=== PATIENT | male | born 1945 | race Caucasian/White ===

== ENCOUNTER 2018-08-13 10:25 | Emergency (ER) | payer MEDICARE, SELFPAY ==
[2018-08-13 10:26] VITALS: BP 183/87; PULSE 77; RESP 20; TEMP 36.9; O2SAT 93; BMI 49.4
[2018-08-13 11:02] LABS: Mucous, Urine 0 SEEN /hpf (<or=2+); Squamous Epithelial Cells - UA 0 SEEN /hpf (0-5)
[2018-08-13 11:11] LABS: Color, Urine Yellow (Yellow); Glucose, Dipstick Normal (Normal); Ketone-Dipstick Negative (Negative); Leukocyte Esterase-Dipstick 500 /ul (Negative); Nitrite-Dipstick Positive (Negative); Occult Blood-Urine 250 /ul (Negative); Protein-Dipstick 100 mg/dl (Negative); Urine Bilirubin Dipstick Negative (Negative); Urine Clarity Sl. Cloudy (Clear); Urine Urobilinogen Normal (Normal)
[2018-08-13 11:22] LABS: Bacteria 2+ /hpf (None Seen); Red Blood Cells-Urine 25-50 SEEN /hpf (0-5); White Blood Cells 25-50 SEEN /hpf (0-5)
[2018-08-13 11:23] LABS: Triple Phosphate Crystals Ur 1+ /hpf (<or=1+)
[2018-08-13 11:26] LABS: Absolute Lymphocyte Count 0.63 X10^3/ul (0.83-4.51); Absolute Neutrophil Count 10.2 X10^3/uL (2.0-7.7); Basophil# 0.03 X10^3/uL; Basophil% 0.2 % (0-1); Eosinophil# 0.09 X10^3/uL; Eosinophils% 0.7 % (0-5); Hematocrit 35.8 % (40-54); Hemoglobin 11.2 g/dl (13.0-16.5); Lymphocyte # 0.63 X10^3/ul (4.0); Lymphocyte % 5.1 % (19-41); Mean Corp Hgb Conc 31.3 g/gl (32-36); Mean Corpuscular Hgb 29.3 pg (27.0-32.0); Mean Corpuscular Volume 93.7 fL (80-94); Mean Platelet Vol. 9.6 fl (6.2-12.0); Monocyte# 1.39 X10^3/uL; Monocyte% 11.3 % (0-10); Neutrophil # 10.15 X10^3/uL (2.7-7.7); Neutrophil % 82.6 % (47-70); POSITIVE COUNT NO; POSITIVE DIFFERENTIAL NO; POSITIVE MORPHOLOGY NO; Platelet Count 125 K/mm3 (150-450); RBC Distribution Width CV 15.7 % (11.6-14.6); RBC Distribution Width SD 53.3 fl (35.1-43.9); Red Blood Count 3.82 M/mm3 (4.6-6.2); White Blood Count 12.3 K/mm3 (4.4-11.0)
[2018-08-13 11:34] LABS: Anion Gap 10 (5-15); BUN 32 mg/dL (7-18); BUN/Creat Ratio 14.5 RATIO (10-20); Calcium,Total 8.7 mg/dL (8.5-10.1); Chloride 103 mmol/L (98-107); EST Glomerular Filtration Rate 31 mL/min (>60); Est Glom Filt Rate - Afr Amer 38 mL/min (>60); Estimated Creatinine Clearance 27.12 ml/min; Glucose 159 mg/dL (74-106); Potassium 4.1 mmol/L (3.5-5.1); Sodium Level 138 mmol/L (136-145)
--- NOTE | 2018-08-13 12:14 | CT_ITS ---
STUDY: CT ABDOMEN AND PELVIS WITHOUT CONTRAST REASON FOR EXAM: Male, 73 years old. Burning and frequency with urination. RADIATION DOSAGE (If Supplied By Facility): CTDIvol = ( 17.58 ) mGy, DLP = ( 910.92 ) mGycm TECHNIQUE: Transaxial images were obtained from the dome of the diaphragm to the symphysis pubis without oral contrast, and without intravenous contrast. Sagittal and coronal images were reconstructed. Individualized dose optimization techniques were used for this CT. COMPARISON: Comparison is made with prior study dated November 16, 2016. FINDINGS: Small left pleural effusion with left basilar atelectasis and/or infiltration. Coronary artery calcification. Normal liver. There are surgical clips in the gallbladder fossa consistent with a prior cholecystectomy. Normal spleen. Normal pancreas. Normal bilateral adrenal glands. Marked degree of right hydronephrosis and hydroureter with tortuosity of the ureter down to the urinary bladder. Small cyst in the lateral lower pole of the right kidney. Punctate calcification in the dilated midpole calyx. There is a 2.4 cm hypodensity most likely a cyst in the upper posterior aspect of the left kidney. Moderate degree of left hydronephrosis and left hydroureter. Normal visualized stomach. Normal small intestine. There are multiple colonic diverticula consistent with diverticulosis. The appendix is visualized and appears normal. There is diffuse atherosclerotic calcification of the abdominal aorta and its major visceral branches, without a demonstrated aneurysm. Normal inferior vena cava. There is borderline retroperitoneal lymphadenopathy with enlarged nodes no greater than 10mm in the short axis diameter. The urinary bladder is distended. Mild degree of bladder wall thickening. The prostate measures within normal limits. Central prostatic calcification. Increased markings within the subcutaneous fat suggestive of a possible edematous change. There are diffuse degenerative changes of the visualized lumbar spine. CT/Abdomen/Pelvis without Cont IMPRESSION: Bilateral hydronephrosis and hydroureter worse on the right side with marked distention of the urinary bladder and thickening of the gallbladder wall stable bilateral renal cysts. Small left pleural effusion with left basilar atelectasis and/or infiltrate. Electronically Signed: Evan Kirkland MD at 13:00 EDT Tel [phone], Service support ,
[2018-08-13] MEDS: Lidocaine Jelly 2% 20 ML Syringe (URO-JET) 20 APPLIC TOPICAL (14:02)
[2018-08-13] MEDS: Ciprofloxacin 500 MG Tablet PO (14:10)
--- NOTE | 2018-08-13 15:09 | ED.VISSUMM ---
- ER Visit Summary Date of Service: 08/13/18 Chief Complaint: Urinary tract infection History of Present Illness: The patient is a 73 M is ending with urinary frequency and urgency for 24 hours. Slight suprapubic discomfort but no flank pain. He does have a history of large prostate but has never had urinary retention. Physical Examination: Vitals are within normal limits. He is not in distress. Neck is supple. Heart tones are regular and without murmur. Slight suprapubic tenderness but no flank tenderness. Test Results: Creatinine is slightly elevated at 2.2. White blood cell count is normal. Urine does appear infected with positive nitrites, white blood cells, and leukocytes. Because of his increased creatinine, I did order a CT scan which revealed bilateral hydronephrosis and hydroureter Emergency Department Course and Treatment: His bladder was quite enlarged on the CT scan and he has evidence of an obstructive uropathy. A Carlson catheter was placed in approximately 3 L of clear colorless urine was obtained. He had near complete relief of his discomfort. He had a very small amount of hematuria at the end which cleared easily with irrigation. Treatment Plan: I discussed the case with Dr. Goodwin, his primary care physician with whom he has an appointment on Thursday. He is comfortable with the patient being discharged home with the Carlson catheter in place and he will repeat his labs on Thursday and arrange close urology follow-up. The patient will return to the emergency department if any worse before then and he will be started on Cipro with a urine culture pending. Disposition: Home in stable condition Impression: Initial encounter acute urinary retention, initial encounter bilateral obstructive uropathy, initial encounter urinary tract infection, initial encounter acute kidney injury This note was generated with [employer] dictation software. It may contain incorrect words, spelling, and punctuation that were not noted in review of the chart prior to signing ED Disposition - Plan for ED Patient: Chief Complaint: Complaint Instructions: ED Retention Urinary Male, ED UTI Cystitis Male Prescriptions: Ciprofloxacin [Cipro] 500 mg PO BID #14 tablet Referrals: Danny Goodwin DO [Primary Care Provider] - 08/16/18
--- NOTE | 2018-08-13 15:12 | ED.DCSUM_ITS ---
- ER Visit Summary Date of Service: 08/13/18 Chief Complaint: Urinary tract infection History of Present Illness: The patient is a 73 M is ending with urinary frequency and urgency for 24 hours. Slight suprapubic discomfort but no flank pain. He does have a history of large prostate but has never had urinary retention. Physical Examination: Vitals are within normal limits. He is not in distress. Neck is supple. Heart tones are regular and without murmur. Slight suprapubic tenderness but no flank tenderness. Test Results: Creatinine is slightly elevated at 2.2. White blood cell count is normal. Urine does appear infected with positive nitrites, white blood cells , and leukocytes. Because of his increased creatinine, I did order a CT scan which revealed bilateral hydronephrosis and hydroureter Emergency Department Course and Treatment: His bladder was quite enlarged on the CT scan and he has evidence of an obstructive uropathy. A Carlson catheter was placed in approximately 3 L of clear colorless urine was obtained. He had near complete relief of his discomfort. He had a very small amount of hematuria at the end which cleared easily with irrigation. Treatment Plan: I discussed the case with Dr. Goodwin, his primary care physician with whom he has an appointment on Thursday. He is comfortable with the patient being discharged home with the Carlson catheter in place and he will repeat his labs on Thursday and arrange close urology follow-up. The patient will return to the emergency department if any worse before then and he will be started on Cipro with a urine culture pending. Disposition: Home in stable condition Impression: Initial encounter acute urinary retention, initial encounter bilateral obstructive uropathy, initial encounter urinary tract infection, initial encounter acute kidney injury This note was generated with [email or web address] dictation software. It may contain incorrect words, spelling, and punctuation that were not noted in review of the chart prior to signing ED Disposition - Plan for ED Patient: Chief Complaint: Complaint Instructions: ED Retention Urinary Male, ED UTI Cystitis Male Prescriptions: Ciprofloxacin [Cipro] 500 mg PO BID #14 tablet Referrals: Danny Goodwin DO [Primary Care Provider] - 08/16/18
[2018-08-13 15:27] VITALS: BP 113/77; PULSE 78; RESP 15; O2SAT 98
== END 2018-08-13 15:46 | disposition home or self-care (01) ==
PROVIDERS: Emergency Provider Emergency Medicine; Family Provider Family Medicine; PCP Family Medicine
DX: R33.9 Retention of urine, unspecified (principal); N13.30 Unspecified hydronephrosis; N13.4 Hydroureter; N39.0 Urinary tract infection, site not specified; N17.9 Acute kidney failure, unspecified; Z79.4 Long term (current) use of insulin; Z79.82 Long term (current) use of aspirin; Z79.899 Other long term (current) drug therapy
CPT/HCPCS: 51702; 74176; 80048; 81001; 85025; 87077; 87086; 87088; 87186; 99285; A4216

== ENCOUNTER 2018-08-18 17:22 | Emergency (ER) | payer MEDICARE, SELFPAY ==
[2018-08-18 17:22] VITALS: BP 151/76; PULSE 68; RESP 18; TEMP 36.9; O2SAT 98; BMI 48.4
--- NOTE | 2018-08-18 17:47 | ED.DCSUM_ITS ---
- ER Visit Summary Date of Service: 08/18/18 Chief Complaint: Erwin catheter not draining History of Present Illness: The patient is a 73 M with history of acute urinary retention, Erwin catheter placed 3 days ago, who presents because it is not draining. Patient was seen at the urologist office this morning for the same complaint. He had 2 L of urine drained at that time and a new bag placed. Patient began developing pressure and discomfort in the suprapubic region and noted the catheter was not draining again. He denies any fever, abdominal pain, nausea or vomiting other than the suprapubic discomfort. He has an appointment on August 26 for removal of the catheter. Patient attempted self flushing at home without any improvement. Physical Examination Vital signs: afebrile, hemodynamically stable, no hypoxia on room air General: well nourished, well developed, in no distress Skin: warm, dry, no rash, no pallor HEENT: normocephalic and atraumatic; PERRL, EOMI, moist mucous membranes Cardiovascular: regular rate and rhythm Respiratory: No increased work of breathing Abdominal: Abdomen is soft, nontender with normoactive bowel sounds, no guarding or rebound, no masses : erwin in place MSK: Moves all extremities, no deformities, normal strength Neuro: Awake and alert, oriented ?4. No facial droop, sensation and motor function intact and symmetric Test Results:] Abnormal Lab Results 08/18/18 17:50 Sodium 137 Potassium 3.8 Chloride 101 Carbon Dioxide 30.0 Anion Gap 6 BUN 23 H Creatinine 1.90 H Estim Creat Clear Calc 31.41 Est GFR (MDRD) Af Amer 45 L Est GFR (MDRD) Non-Af 37 L BUN/Creatinine Ratio 12.1 Glucose 164 H Calcium 8.7 Emergency Department Course and Treatment: The catheter was evaluated, and the balloon port had been used to try and flush it at home, thus it was over distended with 40 cc of fluid. The balloon was completely decompressed and reinflated with 10 cc. Only 130 cc of urine were voided, and it was dark in color with a few small clots. BMP was checked to evaluate for any change in patient's renal function. His creatinine at his last BMP was 2.2. It is 1.9 today, showing improvement rather than worsening. On reevaluation, patient had light colored yellow urine in his Erwin bag, and the dark concentrated urine had resolved. Patient was feeling well. He will keep his appointment as planned or return earlier if any further concerns. Discharged home in improved condition. Treatment Plan: [] Disposition: [] Impression: Obstruction of Erwin catheter This note was generated with [employer] dictation software. It may contain incorrect words, spelling, and punctuation that were not noted in review of the chart prior to signing ED Disposition - Plan for ED Patient: Disposition: Home or Assisted Living Chief Complaint: Erwin C/O Instructions: Discharge Instructions: Caring for Your Indwelling Urinary Catheter Referrals: Danny Goodwin DO [Primary Care Provider] - Keep Rosetta appointment Additional Instructions: If you have any worsening of your condition or any new concerning symptoms, please return immediately to the emergency department for another evaluation.
[2018-08-18 18:38] LABS: Anion Gap 6 (5-15); BUN 23 mg/dL (7-18); BUN/Creat Ratio 12.1 RATIO (10-20); Calcium,Total 8.7 mg/dL (8.5-10.1); Chloride 101 mmol/L (98-107); EST Glomerular Filtration Rate 37 mL/min (>60); Est Glom Filt Rate - Afr Amer 45 mL/min (>60); Estimated Creatinine Clearance 31.41 ml/min; Glucose 164 mg/dL (74-106); Potassium 3.8 mmol/L (3.5-5.1); Sodium Level 137 mmol/L (136-145)
--- NOTE | 2018-08-18 19:39 | ED.DEP ---
ED Disposition - Plan for ED Patient: Disposition: Home or Assisted Living Chief Complaint: Carlson C/O Instructions: Discharge Instructions: Caring for Your Indwelling Urinary Catheter Referrals: Danny Goodwin DO [Primary Care Provider] - Keep Rosetta appointment Additional Instructions: If you have any worsening of your condition or any new concerning symptoms, please return immediately to the emergency department for another evaluation.
== END 2018-08-18 19:51 | disposition home or self-care (01) ==
PROVIDERS: Emergency Provider Emergency Medicine; Family Provider Family Medicine; PCP Family Medicine
DX: T83.091A Other mechanical complication of indwelling urethral catheter, initial encounter (principal); R33.9 Retention of urine, unspecified; Z79.4 Long term (current) use of insulin; Z79.82 Long term (current) use of aspirin; Z79.899 Other long term (current) drug therapy
CPT/HCPCS: 80048; 99282

== ENCOUNTER 2018-08-20 20:51 | Emergency (ER) | payer MEDICARE, SELFPAY ==
[2018-08-20 20:52] VITALS: BP 145/72; PULSE 66; RESP 14; TEMP 36.8; O2SAT 99; BMI 48.4
[2018-08-20 22:39] VITALS: BP 152/98; PULSE 61; RESP 17; O2SAT 96
--- NOTE | 2018-08-20 22:41 | ED.DCSUM_ITS ---
- ER Visit Summary Date of Service: 08/20/18 Chief Complaint: Carlson catheter malfunction History of Present Illness: The patient is a 73 M presenting for evaluation due to concerns for a clogged Carlson catheter. Patient reports that a week ago he had a Carlson catheter placed secondary to his severe urinary tract infection with dilation of the bladder and urinary retention. Patient reports that he is required to have it irrigated a couple times since then, and since his bladder was so distended when it was initially placed he has developed some hematuria. He is not on any sort of anticoagulants. Patient states that today he has had some decreased drainage from the catheter and was concerned that it was potentially clogged again. He endorses only mild amount of suprapubic tenderness and denies any other associated symptoms. Physical Examination: Vital signs within normal limits. Obese male no acute distress. Moist mucous membranes. Heart regular rate, lungs clear. Abdomen was minimally tender in the suprapubic region. Carlson catheter is in place, no evidence of penile infection. Remainder physical otherwise unremarkable. Test Results: None indicated Emergency Department Course and Treatment: Patient presented due to concern for clogged of a Carlson catheter. Nursing staff did irrigate this, they were able to get good irrigation. Patient had some relief. He still has hematuria, but it is pink with not a significant amount of clots. This point I believe the patient's appropriate for discharge home. Patient will follow up with urology. Disposition: Discharge Impression: 1. Hematuria This note was generated with [employer] dictation software. It may contain incorrect words, spelling, and punctuation that were not noted in review of the chart prior to signing ED Disposition - Plan for ED Patient: Disposition: Home or Assisted Living Chief Complaint: Carlson C/O Diagnosis: Hematuria Instructions: Discharge Instructions: Caring for Your Leg Bag Referrals: Danny Goodwin DO [Primary Care Provider] - Additional Instructions: Followup with urology as scheduled
== END 2018-08-20 22:50 | disposition home or self-care (01) ==
PROVIDERS: Emergency Provider Emergency Medicine; Family Provider Family Medicine; PCP Family Medicine
DX: R31.9 Hematuria, unspecified (principal); E66.9 Obesity, unspecified
CPT/HCPCS: 99282

== ENCOUNTER 2019-02-12 19:42 | Emergency (ER) | payer MEDICARE, SELFPAY ==
[2019-02-12 19:43] VITALS: BP 155/66; PULSE 61; RESP 16; TEMP 36.5; O2SAT 97; BMI 51.3
--- NOTE | 2019-02-12 20:20 | ED.DCSUM_ITS ---
- ER Visit Summary Date of Service: 02/12/19 Chief Complaint: Fall History of Present Illness: The patient is a 73 M who lost his balance going up some steps and fell backwards striking his head and left shoulder on concrete. Patient complains of pain to the left shoulder. He denies headache. He did not lose consciousness. Physical Examination: Vital signs unremarkable. Patient is lying in bed no acute distress. Head and neck examination reveals no obvious external sign of trauma. No C- spine tenderness. Heart is regular rate and rhythm. Lung sounds clear. Abdomen soft nontender. Left upper extremity examination does reveal mild tenderness at the left shoulder along the joint line. He has strong distal pulse to the left arm. 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 He does have prominence of the medial clavicle on the left, but states it is only mildly tender to touch. Test Results: Left shoulder and left clavicle x-rays are obtained. There are osteoarthritic changes at the AC joint. No acute findings. Emergency Department Course and Treatment: Patient initially declined pain medication. After returning from x-ray he did have increased pain and was given a dose of oxycodone. He takes Percocet as needed at home. Test results are discussed with patient and family at bedside. At this time I see no evidence of acute bony injury. I did discuss with him there is possibility of tendon or ligament injury that is not visible on x-ray. I did discuss the prominent medial clavicle on the left with the patient. He does not remember if it is normally like that or not. The area is only minimally tender and if this was an acute dislocation I would certainly expect significantly more pain at the site. Patient will be given a sling. He will use his Percocet as needed. He will follow-up with Dr. Amin. Treatment Plan: [] Disposition: Discharge Impression: 1. Left shoulder contusion 2. Mechanical fall This note was generated with [employer] dictation software. It may contain incorrect words, spelling, and punctuation that were not noted in review of the chart prior to signing ED Disposition - Plan for ED Patient: Referrals: Danny Goodwin DO [Primary Care Provider] -
--- NOTE | 2019-02-12 20:28 | RAD_ITS ---
STUDY: X-RAY - LEFT SHOULDER REASON FOR EXAM: Male, 73 years old. Fall. Clavicle pain. TECHNIQUE: 2 view(s) of the shoulder. COMPARISON: None. FINDINGS: Normal glenohumeral articulation. There is arthrosis of the acromioclavicular joint. Normal acromion. Normal humeral head and visualized proximal humerus. The soft tissue structures are unremarkable. Normal visualized pulmonary apex. RAD/Shoulder min 2 Views IMPRESSION: Osteoarthritic changes of the AC joint. No acute finding. Electronically Signed: James Lafleur MD at 20:51 EDT , Service support ,
--- NOTE | 2019-02-12 20:28 | RAD_ITS ---
STUDY: X-RAY - LEFT CLAVICLE REASON FOR EXAM: Male, 73 years old. Fall. Pain in clavicle. TECHNIQUE: 2 view(s) of the clavicle. COMPARISON: None. FINDINGS: Normal clavicle. There is marked arthrosis of the acromioclavicular joint. Normal visualized sternoclavicular articulation. Normal visualized pulmonary apex. RAD/Clavicle IMPRESSION: No acute finding. Electronically Signed: James Lafleur MD at 20:51 EDT , Service support ,
--- NOTE | 2019-02-12 21:12 | ED.DEP ---
ED Disposition - Plan for ED Patient: Disposition: Home or Assisted Living Instructions: ED Mechanical Fall, ED Contusion Shoulder Referrals: Josep Amin DO [STAFF PHYSICIAN] - 1 Week
[2019-02-12] MEDS: oxyCODONE 5 MG Tablet PO (21:27)
[2019-02-12 21:36] VITALS: BP 145/82; PULSE 63; RESP 16; O2SAT 97
== END 2019-02-12 21:43 | disposition home or self-care (01) ==
PROVIDERS: Emergency Provider Emergency Medicine; Family Provider Family Medicine; PCP Family Medicine
DX: S40.012A Contusion of left shoulder, initial encounter (principal); M54.9 Dorsalgia, unspecified; Z79.891 Long term (current) use of opiate analgesic; Z87.891 Personal history of nicotine dependence; W10.9XXA Fall (on) (from) unspecified stairs and steps, initial encounter; Y93.01 Activity, walking, marching and hiking; Y92.89 Other specified places as the place of occurrence of the external cause; Y99.8 Other external cause status
CPT/HCPCS: 73000; 73030; 99285

== ENCOUNTER → 2019-05-10 | Outpatient (CLI) | payer MEDICARE, SELFPAY ==
[2019-05-10 15:26] LABS: PSA,Total - Annual Screen 4.37 ng/mL (0.00-4.00)
== END | disposition home or self-care (01) ==
PROVIDERS: Family Provider Family Medicine; PCP Family Medicine; Referring Provider Urology; Visit Provider Urology
DX: Z12.5 Encounter for screening for malignant neoplasm of prostate (principal)
CPT/HCPCS: 36415; 84153; G0103

== ENCOUNTER → 2020-01-26 | Outpatient (CLI) | payer MEDICARE, SELFPAY ==
[2020-01-26 12:12] LABS: BUN 32 mg/dL (7-18); Creatinine, Serum 1.59 mg/dL (0.70-1.30); EST Glomerular Filtration Rate 45 mL/min (>60); Glucose 209 mg/dL (74-106)
[2020-01-26 12:13] LABS: Albumin, Serum 3.3 g/dL (3.2-5.0); BUN/Creat Ratio 20.1 RATIO (10-20); Calcium,Total 8.6 mg/dL (8.5-10.1); Chloride 114 mmol/L (98-107); Est Glom Filt Rate - Afr Amer 55 mL/min (>60); Phosphorus 3.7 mg/dL (2.5-4.9); Potassium 3.8 mmol/L (3.5-5.1); Sodium Level 144 mmol/L (136-145)
[2020-01-26 12:17] LABS: Protein, Urine (Random) 42.5 mg/dL (<11.9); Protein:Creat Ratio 840 mg/g CRE (0-200)
== END | disposition home or self-care (01) ==
LOC: POLAB3 09:55
PROVIDERS: PCP Family Medicine; Visit Provider Internal Medicine Nephrology
DX: E11.22 Type 2 diabetes mellitus with diabetic chronic kidney disease (principal); N18.3 Chronic kidney disease, stage 3 (moderate)
CPT/HCPCS: 36415; 80069; 82570; 84156

== ENCOUNTER → 2020-03-27 | Outpatient (CLI) | payer MEDICARE, SELFPAY ==
[2020-03-27 09:51] LABS: Hematocrit 45.1 % (40-54); Hemoglobin 14.7 g/dL (13.0-16.5); Mean Corp Hgb Conc 32.6 g/dL (32-36); Mean Corpuscular Hgb 31.1 pg (27.0-32.0); Mean Corpuscular Volume 95.3 fL (80-94); Mean Platelet Vol. 10.3 fl (6.2-12.0); Platelet Count 183 K/mm3 (150-450); RBC Distribution Width CV 14.7 % (11.6-14.6); RBC Distribution Width SD 51.1 fl (35.1-43.9); Red Blood Count 4.73 M/mm3 (4.6-6.2); White Blood Count 8.3 K/mm3 (4.4-11.0)
[2020-03-27 10:01] LABS: PTHIN 128.1 pg/mL (18.4-80.1)
[2020-03-27 10:05] LABS: ALB/GLOB Ratio 0.9 RATIO (0.9-2.4); AST(SGOT) 78 U/L (15-37); Alanine Aminotransfer ALT/SGPT 127 U/L (16-61); Albumin, Serum 3.4 g/dL (3.2-5.0); Alkaline Phosphatase 179 U/L (45-117); Anion Gap 5 (5-15); BUN 32 mg/dL (7-18); BUN/Creat Ratio 18.5 RATIO (10-20); Calcium,Total 8.9 mg/dL (8.5-10.1); Chloride 108 mmol/L (98-107); Creatinine, Serum 1.73 mg/dL (0.70-1.30); EST Glomerular Filtration Rate 41 mL/min (>60); Est Glom Filt Rate - Afr Amer 50 mL/min (>60); Globulin 3.8 g/dL (2.2-4.2); Glucose 185 mg/dL (74-106); Phosphorus 4.8 mg/dL (2.5-4.9); Potassium 3.8 mmol/L (3.5-5.1); Protein, Total 7.2 g/dL (6.4-8.2); Sodium Level 139 mmol/L (136-145); Vitamin D,25 Hydroxy 41.5 ng/mL
== END | disposition home or self-care (01) ==
LOC: MTLAB 08:02
PROVIDERS: Internal Medicine Nephrology; PCP Student in an Organized Health Care Education/Training Program; Referring Provider Student in an Organized Health Care Education/Training Program; Visit Provider Student in an Organized Health Care Education/Training Program
DX: E11.22 Type 2 diabetes mellitus with diabetic chronic kidney disease (principal); N18.3 Chronic kidney disease, stage 3 (moderate); E11.21 Type 2 diabetes mellitus with diabetic nephropathy; N25.81 Secondary hyperparathyroidism of renal origin; E55.9 Vitamin D deficiency, unspecified
CPT/HCPCS: 36415; 80053; 82306; 83970; 84100; 85027

== ENCOUNTER → 2020-04-02 | Outpatient (CLI) | payer MEDICARE, SELFPAY ==
--- NOTE | 2020-04-02 09:08 | US_ITS ---
STUDY: RENAL ULTRASOUND - COMPLETE REASON FOR EXAM: Male, 74 years old. CKD3 TECHNIQUE: Ultrasound evaluation of the kidneys was performed with real-time and static sharp-scale imaging. COMPARISON: None. FINDINGS: RIGHT KIDNEY: Normal location of the right kidney, which is normal in size. The right kidney measures 13.6 cm x 5.2 cm x 6.6 cm. There is a normal cortex of the right kidney. The renal cortex measures 1.5 cm. 2 right renal cysts are seen. There is a 3.4 cm x 3.3 cm x 3.1 cm cyst in the upper pole. In the inferior pole, there is a 2.8 cm x 2.7 cm x 2 cm cyst. There are no right renal calculi. There is no right hydronephrosis. DISTAL RIGHT URETER: There is non-visualization of the distal right ureter. There is no demonstrated right ureterovesical junction calculus. There is no demonstrated right ureteral jet. LEFT KIDNEY: Normal location of the left kidney, which is normal in size. The left kidney measures 10.8 cm x 4.9 cm x 5.7 cm. There is a normal cortex of the left kidney. The renal cortex measures 1.2 cm. Multiple renal cysts are seen. The largest measures 2.4 cm x 3 size by 1.9 cm. There are no left renal calculi. There is no left hydronephrosis. DISTAL LEFT URETER: There is non-visualization of the distal left ureter. There is no demonstrated left ureterovesical junction calculus. There is no demonstrated left ureteral jet. BLADDER: The distended urinary bladder has a volume of 151 ml. There is a normal wall thickness of the distended urinary bladder. There is no demonstrated mass within the urinary bladder. There are no demonstrated bladder calculi. US/Kidney and Bladder IMPRESSION: Bilateral renal cysts more prominent on the left side. Electronically Signed: Evan Kirkland, at 12:53 EDT , Service support ,
== END | disposition home or self-care (01) ==
LOC: US 09:05
PROVIDERS: PCP Student in an Organized Health Care Education/Training Program; Referring Provider Internal Medicine Nephrology; Visit Provider Internal Medicine Nephrology
DX: N18.3 Chronic kidney disease, stage 3 (moderate) (principal)
CPT/HCPCS: 76770

== ENCOUNTER → 2020-04-05 | Outpatient (CLI) | payer MEDICARE, SELFPAY ==
[2020-04-05 12:47] LABS: Protein, Urine (Random) 60.2 mg/dL (<11.9); Protein:Creat Ratio 1830 mg/g CRE (0-200)
== END | disposition home or self-care (01) ==
LOC: POLAB3 11:28
PROVIDERS: PCP Student in an Organized Health Care Education/Training Program; Visit Provider Internal Medicine Nephrology
DX: E11.22 Type 2 diabetes mellitus with diabetic chronic kidney disease (principal); N18.9 Chronic kidney disease, unspecified
CPT/HCPCS: 82570; 84156

== ENCOUNTER → 2020-04-30 10:33 | Outpatient (CLI) | payer MEDICARE, SELFPAY ==
[2020-04-30 11:39] LABS: Albumin, Serum 3.1 g/dL (3.2-5.0); BUN 21 mg/dL (7-18); BUN/Creat Ratio 16.7 RATIO (10-20); Chloride 108 mmol/L (98-107); Creatinine, Serum 1.26 mg/dL (0.70-1.30); EST Glomerular Filtration Rate 59 mL/min (>60); Est Glom Filt Rate - Afr Amer 71 mL/min (>60); Glucose 172 mg/dL (74-106); Phosphorus 4.1 mg/dL (2.5-4.9); Potassium 3.8 mmol/L (3.5-5.1); Sodium Level 141 mmol/L (136-145)
[2020-04-30 13:17] LABS: ALB/GLOB Ratio 0.8 RATIO (0.9-2.4); AST(SGOT) 26 U/L (15-37); Alanine Aminotransfer ALT/SGPT 75 U/L (16-61); Alkaline Phosphatase 152 U/L (45-117); Cholesterol 188 mg/dL (200); Globulin 4.1 g/dL (2.2-4.2); High Density Lipoprotein 41 mg/dL; Protein, Total 7.2 g/dL (6.4-8.2); Triglycerides 129 mg/dL; Uric Acid 4.3 mg/dL (3.5-7.2); Very Low Density Lipoprotein 26 mg/dL (5-40); Vitamin D,25 Hydroxy 34.4 ng/mL
[2020-04-30 13:34] LABS: Hematocrit 45.9 % (40-54); Hemoglobin 14.8 g/dL (13.0-16.5); Mean Corp Hgb Conc 32.2 g/dL (32-36); Mean Platelet Vol. 10.1 fl (6.2-12.0); Platelet Count 208 K/mm3 (150-450); RBC Distribution Width SD 56.1 fl (35.1-43.9); Red Blood Count 4.78 M/mm3 (4.6-6.2); White Blood Count 7.6 K/mm3 (4.4-11.0)
[2020-04-30 14:09] LABS: Hemoglobin A1c 6.3 % (3.8-5.6)
== END ==
PROVIDERS: PCP Student in an Organized Health Care Education/Training Program; Referring Provider Internal Medicine Nephrology; Visit Provider Internal Medicine Nephrology
DX: E11.22 Type 2 diabetes mellitus with diabetic chronic kidney disease (principal); N18.3 Chronic kidney disease, stage 3 (moderate); N17.9 Acute kidney failure, unspecified; E11.21 Type 2 diabetes mellitus with diabetic nephropathy; M10.9 Gout, unspecified; R74.0 Nonspecific elevation of levels of transaminase and lactic acid dehydrogenase [LDH]
CPT/HCPCS: 36415; 80061; 80069; 82247; 82306; 83036; 84075; 84156; 84450; 84460; 84550; 85027

== ENCOUNTER → 2020-05-08 | Outpatient (CLI) | payer MEDICARE, SELFPAY ==
[2020-05-08 15:27] LABS: PSA,Total- Diagnostic 4.64 ng/mL (0.0-4.0)
== END | disposition home or self-care (01) ==
LOC: LAB 13:53
PROVIDERS: PCP Student in an Organized Health Care Education/Training Program; Referring Provider Urology; Visit Provider Urology
DX: R97.20 Elevated prostate specific antigen [PSA] (principal)
CPT/HCPCS: 36415; 84153

== ENCOUNTER → 2020-06-30 09:42 | Outpatient (CLI) | payer MEDICARE, SELFPAY ==
[2020-06-30 11:08] LABS: Albumin, Serum 3.5 g/dL (3.2-5.0); BUN 22 mg/dL (7-18); BUN/Creat Ratio 13.5 RATIO (10-20); Calcium,Total 9.1 mg/dL (8.5-10.1); Chloride 112 mmol/L (98-107); Creatinine, Serum 1.63 mg/dL (0.70-1.30); EST Glomerular Filtration Rate 44 mL/min (>60); Est Glom Filt Rate - Afr Amer 53 mL/min (>60); Glucose 119 mg/dL (74-106); Phosphorus 4.4 mg/dL (2.5-4.9); Potassium 4.4 mmol/L (3.5-5.1); Sodium Level 143 mmol/L (136-145)
== END ==
PROVIDERS: PCP Student in an Organized Health Care Education/Training Program; Referring Provider Internal Medicine Nephrology; Visit Provider Internal Medicine Nephrology
DX: N18.3 Chronic kidney disease, stage 3 (moderate) (principal)
CPT/HCPCS: 36415; 80069

== ENCOUNTER → 2020-07-09 | Outpatient (CLI) | payer MEDICARE, SELFPAY ==
[2020-07-09 11:05] LABS: Anion Gap 3 (5-15); BUN 25 mg/dL (7-18); BUN/Creat Ratio 17.5 RATIO (10-20); Calcium,Total 9.3 mg/dL (8.5-10.1); Chloride 111 mmol/L (98-107); Creatinine, Serum 1.43 mg/dL (0.70-1.30); EST Glomerular Filtration Rate 51 mL/min (>60); Est Glom Filt Rate - Afr Amer 62 mL/min (>60); Glucose 122 mg/dL (74-106); Potassium 4.4 mmol/L (3.5-5.1); Sodium Level 142 mmol/L (136-145)
== END | disposition home or self-care (01) ==
LOC: LAB 09:45
PROVIDERS: PCP Student in an Organized Health Care Education/Training Program; Referring Provider Internal Medicine Nephrology; Visit Provider Internal Medicine Nephrology
DX: N18.3 Chronic kidney disease, stage 3 (moderate) (principal)
CPT/HCPCS: 36415; 80048

== ENCOUNTER → 2020-08-31 | Outpatient (CLI) | payer MEDICARE, SELFPAY ==
[2020-08-31 11:02] LABS: Hematocrit 45.7 % (40-54); Hemoglobin 14.5 g/dL (13.0-16.5); Mean Corp Hgb Conc 31.7 g/dL (32-36); Mean Corpuscular Hgb 30.6 pg (27.0-32.0); Mean Corpuscular Volume 96.4 fL (80-94); Mean Platelet Vol. 9.8 fl (6.2-12.0); Platelet Count 177 K/mm3 (150-450); RBC Distribution Width CV 15.3 % (11.6-14.6); RBC Distribution Width SD 53.8 fl (35.1-43.9); Red Blood Count 4.74 M/mm3 (4.6-6.2); White Blood Count 7.4 K/mm3 (4.4-11.0)
[2020-08-31 11:20] LABS: Hemoglobin A1c 6.5 % (3.8-5.6)
[2020-08-31 11:30] LABS: ALB/GLOB Ratio 0.8 RATIO (0.9-2.4); AST(SGOT) 24 U/L (15-37); Alanine Aminotransfer ALT/SGPT 41 U/L (16-61); Albumin, Serum 3.4 g/dL (3.2-5.0); Alkaline Phosphatase 133 U/L (45-117); BUN 67 mg/dL (7-18); Bilirubin, Direct 0.19 mg/dL (0.00-0.30); Calcium,Total 8.9 mg/dL (8.5-10.1); Chloride 111 mmol/L (98-107); Cholesterol 161 mg/dL (200); Creatinine, Serum 2.23 mg/dL (0.70-1.30); EST Glomerular Filtration Rate 31 mL/min (>60); Est Glom Filt Rate - Afr Amer 37 mL/min (>60); Globulin 4.1 g/dL (2.2-4.2); Glucose 136 mg/dL (74-106); High Density Lipoprotein 42 mg/dL; Phosphorus 6.1 mg/dL (2.5-4.9); Potassium 5.1 mmol/L (3.5-5.1); Protein, Total 7.5 g/dL (6.4-8.2); Sodium Level 141 mmol/L (136-145); Triglycerides 145 mg/dL; Very Low Density Lipoprotein 29 mg/dL (5-40)
== END | disposition home or self-care (01) ==
PROVIDERS: PCP Student in an Organized Health Care Education/Training Program; Referring Provider Student in an Organized Health Care Education/Training Program; Visit Provider Student in an Organized Health Care Education/Training Program
DX: E11.22 Type 2 diabetes mellitus with diabetic chronic kidney disease (principal); N18.30 Chronic kidney disease, stage 3 unspecified; E78.5 Hyperlipidemia, unspecified
CPT/HCPCS: 36415; 80061; 80069; 82247; 82248; 83036; 84075; 84156; 84450; 84460; 85027

== ENCOUNTER → 2021-01-18 12:07 | Outpatient (CLI) | payer MEDICARE, SELFPAY ==
[2021-01-18 13:08] LABS: Cholesterol 168 mg/dL (200); High Density Lipoprotein 47 mg/dL; Triglycerides 113 mg/dL; Uric Acid 5.7 mg/dL (3.5-7.2); Very Low Density Lipoprotein 23 mg/dL (5-40)
[2021-01-18 13:15] LABS: Hemoglobin A1c 6.2 % (3.8-5.6)
== END ==
LOC: PR 12:08 → LAB 01-22 07:49
PROVIDERS: PCP Student in an Organized Health Care Education/Training Program; Referring Provider Family Medicine; Visit Provider Family Medicine
DX: E11.9 Type 2 diabetes mellitus without complications (principal); M10.9 Gout, unspecified; E78.00 Pure hypercholesterolemia, unspecified; Z79.4 Long term (current) use of insulin
CPT/HCPCS: 80061; 83036; 84550

== ENCOUNTER → 2021-02-12 13:25 | Outpatient (CLI) | payer MEDICARE, SELFPAY ==
[2021-02-12 13:44] LABS: Hematocrit 49.2 % (40-54); Mean Corp Hgb Conc 32.5 g/dL (32-36); Mean Corpuscular Hgb 32.1 pg (27.0-32.0); Mean Corpuscular Volume 98.8 fL (80-94); Mean Platelet Vol. 9.8 fl (6.2-12.0); Platelet Count 181 K/mm3 (150-450); RBC Distribution Width CV 14.6 % (11.6-14.6); Red Blood Count 4.98 M/mm3 (4.6-6.2); White Blood Count 8.9 K/mm3 (4.4-11.0)
[2021-02-12 14:09] LABS: Albumin, Serum 3.7 g/dL (3.2-5.0); BUN 38 mg/dL (7-18); BUN/Creat Ratio 21.1 RATIO (10-20); Calcium,Total 9.5 mg/dL (8.5-10.1); Chloride 107 mmol/L (98-107); EST Glomerular Filtration Rate 39 mL/min (>60); Est Glom Filt Rate - Afr Amer 47 mL/min (>60); Glucose 168 mg/dL (74-106); Phosphorus 4.5 mg/dL (2.5-4.9); Potassium 5.1 mmol/L (3.5-5.1); Sodium Level 139 mmol/L (136-145)
== END ==
PROVIDERS: PCP Student in an Organized Health Care Education/Training Program; Referring Provider Internal Medicine Nephrology; Visit Provider Internal Medicine Nephrology
DX: N18.30 Chronic kidney disease, stage 3 unspecified (principal)
CPT/HCPCS: 36415; 80069; 85027

== ENCOUNTER → 2021-03-15 13:31 | Outpatient (CLI) | payer MEDICARE, SELFPAY ==
[2021-03-15 15:30] LABS: AST(SGOT) 23 U/L (15-37); Alanine Aminotransfer ALT/SGPT 39 U/L (16-61); Albumin, Serum 3.2 g/dL (3.2-5.0); Alkaline Phosphatase 110 U/L (45-117); Bilirubin, Direct 0.19 mg/dL (0.00-0.30); Globulin 3.8 g/dL (2.2-4.2)
== END ==
PROVIDERS: PCP Family Medicine; Referring Provider Internal Medicine Nephrology; Visit Provider Internal Medicine Nephrology
DX: N17.9 Acute kidney failure, unspecified (principal)
CPT/HCPCS: 36415; 80076

== ENCOUNTER → 2021-05-16 14:49 | Outpatient (CLI) | payer MEDICARE, SELFPAY ==
[2021-05-16 18:05] LABS: PSA,Total- Diagnostic 3.53 ng/mL (0.0-4.0)
== END ==
PROVIDERS: PCP Family Medicine; Visit Provider Urology
DX: R97.20 Elevated prostate specific antigen [PSA] (principal)
CPT/HCPCS: 36415; 84153

== ENCOUNTER → 2021-10-31 | Outpatient (CLI) | payer MEDICARE, SELFPAY ==
[2021-10-31 13:16] LABS: Cholesterol 151 mg/dL (200); High Density Lipoprotein 39 mg/dL; Triglycerides 125 mg/dL; Very Low Density Lipoprotein 25 mg/dL (5-40)
[2021-10-31 13:28] LABS: Hemoglobin A1c 6.5 % (3.8-5.6)
[2021-10-31 17:30] LABS: Microalbumin,Random Urine 73.7 mg/L (NO RANGE EST.); Microalbumin:Creatinine Ratio 115.2 mg/g CRE (<30 mg/g CRE)
== END | disposition home or self-care (01) ==
PROVIDERS: PCP Family Medicine; Visit Provider Family Medicine
DX: E11.9 Type 2 diabetes mellitus without complications (principal); I10 Essential (primary) hypertension; E78.00 Pure hypercholesterolemia, unspecified; Z79.4 Long term (current) use of insulin
CPT/HCPCS: 80061; 82043; 82570; 83036

== ENCOUNTER 2022-05-07 05:44 | Inpatient (IN) | payer MEDICARE, SELFPAY ==
[2022-05-07] VITALS (11 sets, daily range): BP systolic 118–163; BP diastolic 65–80; PULSE 70–98; RESP 15–22; TEMP 35.6–36.8; O2SAT 83–98; BMI 55.6; BMI 53.6
--- NOTE | 2022-05-07 05:53 | CT_ITS ---
STUDY: CT CERVICAL SPINE WITHOUT CONTRAST REASON FOR EXAM: Male, 76 years old. head injury RADIATION DOSAGE (If Supplied By Facility): CTDIvol = ( 33.13 ) mGy, DLP = ( 796.55 ) mGycm TECHNIQUE: High resolution transaxial imaging was performed without contrast material. Sagittal and coronal images were reconstructed. Individualized dose optimization techniques were used for this CT. COMPARISON: None FINDINGS: Significant image degradation from patient body habitus and motion. ALIGNMENT: No subluxation. Straightening of the normal curvature. MINERALIZATION: Normal. VERTEBRAL BODIES: No fracture or acute abnormality. DISC SPACES: Disc space narrowing and partial fusion from C3 through C7. POSTERIOR ELEMENTS: Facet arthropathy at most levels. SPINAL CANAL: Maintained. PARASPINAL SOFT TISSUES: Unremarkable. OTHER: Tiny focus of air in the posterior fossa likely venous air related to IV catheter placement. Small bilateral pleural effusions. CT/Spine Cervical without Contras IMPRESSION: No evidence of fracture or subluxation. Straightening of the normal curve may be due to positioning or muscle spasm. Degenerative changes. Small pleural effusions. Electronically Signed: Penelope Pearson MD at 7:01 EDT ,
--- NOTE | 2022-05-07 05:53 | RAD_ITS ---
STUDY: X-RAY CHEST REASON FOR EXAM: Male, 76 years old. confusion TECHNIQUE: AP portable. 6:32 AM. COMPARISON: None. FINDINGS: LUNGS: Bilateral perihilar infiltrates greater on the left. Likely small right pleural effusion. Detail limited by extensive overlying soft tissue. No pneumothorax. MEDIASTINUM: Unremarkable. CARDIAC SILHOUETTE: Enlarged. BONES AND SOFT TISSUES: No acute abnormalities. RAD/Chest 1 View (Portable) IMPRESSION: Bilateral perihilar infiltrates and small right pleural effusion pulmonary edema versus pneumonia. Electronically Signed: Penelope Pearson MD at 6:56 EDT ,
--- NOTE | 2022-05-07 05:53 | CT_ITS ---
STUDY: CT BRAIN WITHOUT CONTRAST REASON FOR EXAM: Male, 76 years old. head injury RADIATION DOSAGE (If Supplied By Facility): CTDIvol = ( 44.99 ) mGy, DLP = ( 829.85 ) mGycm TECHNIQUE: Transaxial CT imaging of the brain was performed without administration of intravenous contrast material. Individualized dose optimization techniques were used for this CT. COMPARISON: No relevant priors. FINDINGS: BRAIN: No acute bleed. No edema. Decreased attenuation in the periventricular white matter bilaterally. Old lacunar infarct in the right basal ganglia. Mott-white matter differentiation is maintained. VENTRICLES AND SULCI: Not dilated. EXTRA-AXIAL: No hemorrhage, fluid collection, or mass. CALVARIUM / SKULL BASE: Unremarkable. FACE/SINUSES: Unremarkable. SOFT TISSUES: Unremarkable CT/Brain/Head without Contrast IMPRESSION: No acute abnormality. Chronic microvascular ischemic disease. Electronically Signed: Penelope Pearson MD at 6:51 EDT ,
--- NOTE | 2022-05-07 05:53 | EKG12_ITS ---
Test Reason : HYPOGLYCIM Blood Pressure : / mmHG Vent. Rate : 088 BPM Atrial Rate : 131 BPM P-R Int : 000 ms QRS Dur : 184 ms QT Int : 464 ms P-R-T Axes : 000 079 -20 degrees QTc Int : 561 ms Atrial fibrillation Right bundle branch block T wave abnormality, consider inferior ischemia Abnormal ECG Confirmed by ARNOLDO AG, SHO ([id number]), scientific editor SAMANTA LEE ([id number]) on 05/12/2022 12:44:49 PM Referred By: DARIAN Confirmed By:SHO MCLAUGHLIN MD
[2022-05-07 06:01] LABS: Bedside Glucose 59 mg/dL (74-106)
[2022-05-07] MEDS: Dextrose 50%-Water 25 GM/50 ML DISP.SYRIN IV (06:17)
[2022-05-07 06:18] LABS: Absolute Lymphocyte Count 0.49 X10^3/uL (0.83-4.51); Absolute Neutrophil Count 10.6 X10^3/uL (2.0-7.7); Basophil# 0.06 X10^3/uL; Basophil% 0.5 % (0-1); Eosinophil# 0.03 X10^3/uL; Eosinophils% 0.2 % (0-5); Hematocrit 43.1 % (40-54); Hemoglobin 13.5 g/dL (13.0-16.5); Lymphocyte # 0.49 X10^3/ul (0.83-4.51); Mean Corp Hgb Conc 31.3 g/dL (32-36); Mean Corpuscular Hgb 32.3 pg (27.0-32.0); Mean Corpuscular Volume 103.1 fL (80-94); Monocyte# 0.88 X10^3/uL; Monocyte% 7.2 % (0-10); NRBC Flagged by Analyzer 0 % (0-5); Neutrophil # 10.59 X10^3/uL (2.7-7.7); Neutrophil % 87.3 % (47-70); POSITIVE DIFFERENTIAL YES; Platelet Count 223 K/mm3 (150-450); RBC Distribution Width CV 15.8 % (11.6-14.6); Red Blood Count 4.18 M/mm3 (4.6-6.2); White Blood Count 12.2 K/mm3 (4.4-11.0)
[2022-05-07 06:21] LABS: Differential Indicated SCAN CRITERIA MET
[2022-05-07 06:25] LABS: International Normalized Ratio 1.4; Prothrombin Time (Protime)PT. 16.5 SECONDS (11.7-14.9)
[2022-05-07 06:26] LABS: Partial Thromboplast Time 32.3 Seconds (24.1-36.2)
[2022-05-07 06:50] LABS: Bedside Glucose 171 mg/dL (74-106)
[2022-05-07 06:55] LABS: Anion Gap 6 (5-15); BUN 41 mg/dL (7-18); BUN/Creat Ratio 17.6 RATIO (10-20); CPK Total, Creatine Kinase 1204 U/L (39-308); Calcium,Total 9.3 mg/dL (8.5-10.1); Chloride 104 mmol/L (98-107); Creatinine, Serum 2.33 mg/dL (0.70-1.30); EST Glomerular Filtration Rate 29 mL/min (>60); Est Glom Filt Rate - Afr Amer 35 mL/min (>60); Estimated Creatinine Clearance 24.43 ml/min; Glucose 50 mg/dL (74-106); Magnesium 2.3 mg/dL (1.6-2.6); Potassium 4.4 mmol/L (3.5-5.1); Sodium Level 139 mmol/L (136-145); Thyroid Stim Hormone (TSH) 2.35 uIU/mL (0.358-3.74); Troponin-I HS 30 pg/mL (3.0-78.0)
[2022-05-07 07:16] LABS: Differential Comment SCANNED
[2022-05-07 07:25] LABS: Bedside Glucose 156 mg/dL (74-106)
[2022-05-07 08:06] LABS: BNP,B-Type NATRIURETIC PEPTIDE 469.3 pg/mL (0-100)
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
[2022-05-07 08:16] LABS: Bedside Glucose 150 mg/dL (74-106)
[2022-05-07 08:45] LABS: Base Excess 0 mmol/L (-2 to +2); Bicarbonate 25.8 mmol/L (22-26); Blood Gas Specimen Type ART; PO2 88 mmHG (75-100); SO2 96 % (95-99); Total Carbon Dioxide 27 mmol/L; pCO2 46.2 mmHg (35-45); pH 7.36 (7.35-7.45)
--- NOTE | 2022-05-07 09:02 | NURSING ---
DR CHAHAL FOR DR WALLS
--- NOTE | 2022-05-07 09:23 | NURSING ---
PCU TERELETSKY HYPOXIA, NEW ONSET AFIB, CHF, PNEUMONIA
[2022-05-07] MEDS: Ceftriaxone 1 GM/50 ML BAG IV (09:31)
[2022-05-07] MEDS: Furosemide 20 MG/2 ML VIAL IV ×3 (09:34→20:34)
--- NOTE | 2022-05-07 11:01 | NURSING ---
visitor at bedside, states pt hearing aides are at home. pt reports that one is broken but i put it back to together all the time
--- NOTE | 2022-05-07 11:45 | ECHOD_ITS ---
Reason For Study: Afib/Flutter Procedure This was a 2D Doppler, Color Flow transthoracic echocardiogram. The study was technically difficult. No Definity used due to elevated Pressures. Exam performed portable in patient room. Left Ventricle Moderate concentric left ventricular hypertrophy. Based upon the 2D echocardiographic images obtained there appears to be grossly normal left ventricular size, wall motion, and systolic function. The estimated ejection fraction is 55 %. Unable to assess diastolic dysfunction. Right Ventricle Normal RV size. Normal systolic function. Atria The left atrium is moderately enlarged. The right atrium is mildly enlarged. No doppler evidence for ASD. Mitral Valve There is no mitral annular calcification. Mild mitral valve prolapse. Mild (1+) eccentric mitral valve insufficiency. Tricuspid Valve Normal tricuspid valve. Trivial tricuspid valve insufficiency. Right ventricular systolic pressure estimated to be 71 mmHg. Aortic Valve Trisinus/trileaflet aortic valve. Mild focal aortic valve calcification. Pulmonic Valve The pulmonic valve is not well visualized. Great Vessels Normal sized aortic root. Pericardium/Pleural No pericardial effusion. MMode/2D Measurements & Calculations LVIDd: 5.6 cm IVSd: 1.4 cm Ao root diam: 3.2 cm LVIDs: 4.3 cm LVPWd: 1.6 cm LA dimension: 4.5 cm RVDd: 3.9 cm FS: 22.7 % LAV(MOD-bp): 96.3 ml LA A4 area: 27.6 cm2 RA A4 area: 30.0 cm2 LAV(MOD-bp) Indexed: 37.6 ml/m2 LAV(MOD-sp2): 106.5 ml LAV(MOD-sp4): 86.2 ml Time Measurements MV dec time: 0.21 sec Doppler Measurements & Calculations MV E max isai: 133.3 cm/sec Lat Peak E' Isai: 7.7 cm/sec Ao V2 max: 177.8 cm/sec E/E' lat: 17.2 Ao max P.7 mmHg LV V1 max: 83.5 cm/sec MR max isai: 422.8 cm/sec PA V2 max: 108.3 cm/sec LV V1 max P.8 mmHg MR max P.5 mmHg TR max isai: 375.5 cm/sec TR max P.4 mmHg ECHO/Echo Complete Interpretation Summary The study was technically difficult. Based upon the 2D echocardiographic images obtained there appears to be grossly normal left ventricular size, wall motion, and systolic function. The estimated ejection fraction is 55 %. Moderate concentric left ventricular hypertrophy. The left atrium is moderately enlarged. The right atrium is mildly enlarged. Mild mitral valve prolapse. Mild (1+) eccentric mitral valve insufficiency. Trivial tricuspid valve insufficiency. Mild focal aortic valve calcification. Right ventricular systolic pressure estimated to be 71 mmHg c/w severe pulmonar y hypertension. Unable to assess diastolic dysfunction. Ordering Physician: Alvarado Parada Referring Physician: MD Alvarado Sam Performed By: Avi Jackson RCS
--- NOTE | 2022-05-07 11:57 | WOUNDNOTE ---
wound photo: right lower leg
--- NOTE | 2022-05-07 11:57 | WOUNDNOTE ---
wound photo: right posterior lower leg
--- NOTE | 2022-05-07 11:58 | WOUNDNOTE ---
wound photo: left lower leg
[2022-05-07 12:41] LABS: Bedside Glucose 209 mg/dL (74-106)
[2022-05-07] MEDS: Ipratropium/Albuterol Sulfate 3 ML AMPUL.NEB INHALATION ×2 (13:14→18:48)
[2022-05-07] MEDS: 0.9% Saline Lock 10 ML Syringe IV ×2 (15:06→20:35)
[2022-05-07 17:11] LABS: Bedside Glucose 216 mg/dL (74-106)
[2022-05-07] MEDS: Potassium Chloride Oral Tablet 20 MEQ PO (17:28)
[2022-05-07] MEDS: Insulin Lispro 100 UNIT/ML INSULN.PEN SC ×2 (17:28→20:32)
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
[2022-05-07] MEDS: Menthol/Lanolin/Calamine/Znox 113 GM Tube 1 APPLIC TOPICAL (20:30)
[2022-05-07] MEDS: Nystatin Powder 15gm Bottle 1 APPLIC TOPICAL (20:31)
[2022-05-07] MEDS: Heparin Injection (Vial) 5,000 UNIT/ML VIAL 5000 UNIT SC (20:31)
[2022-05-07] MEDS: Metoprolol Tartrate 100 MG Tablet PO (20:33)
[2022-05-07] MEDS: Atorvastatin Calcium 20 MG Tablet PO (20:39)
[2022-05-07 21:06] LABS: Bedside Glucose 272 mg/dL (74-106)
[2022-05-08] VITALS (18 sets, daily range): BP systolic 97–149; BP diastolic 62–79; PULSE 65–88; RESP 18–20; TEMP 36.6–36.8; O2SAT 94–99
[2022-05-08 04:57] LABS: Absolute Lymphocyte Count 1.04 X10^3/uL (0.83-4.51); Absolute Neutrophil Count 7.8 X10^3/uL (2.0-7.7); Basophil# 0.05 X10^3/uL; Basophil% 0.5 % (0-1); Eosinophil# 0.14 X10^3/uL; Eosinophils% 1.4 % (0-5); Hematocrit 38.4 % (40-54); Hemoglobin 11.9 g/dL (13.0-16.5); Lymphocyte # 1.04 X10^3/ul (0.83-4.51); Lymphocyte % 10.1 % (19-41); Mean Corpuscular Hgb 32.4 pg (27.0-32.0); Mean Corpuscular Volume 104.6 fL (80-94); Mean Platelet Vol. 10.2 fl (6.2-12.0); Monocyte# 1.25 X10^3/uL; Monocyte% 12.1 % (0-10); NRBC Flagged by Analyzer 0 % (0-5); Neutrophil # 7.75 X10^3/uL (2.7-7.7); Neutrophil % 75.3 % (47-70); Platelet Count 181 K/mm3 (150-450); RBC Distribution Width CV 15.9 % (11.6-14.6); RBC Distribution Width SD 60.5 fl (35.1-43.9); Red Blood Count 3.67 M/mm3 (4.6-6.2); White Blood Count 10.3 K/mm3 (4.4-11.0)
[2022-05-08] MEDS: 0.9% Saline Lock 10 ML Syringe IV (05:08)
[2022-05-08] MEDS: Furosemide 20 MG/2 ML VIAL IV ×3 (05:09→21:12)
[2022-05-08] MEDS: Nystatin Powder 15gm Bottle 1 APPLIC TOPICAL ×3 (05:11→21:11)
[2022-05-08 06:41] LABS: Bedside Glucose 128 mg/dL (74-106)
[2022-05-08] MEDS: Ipratropium/Albuterol Sulfate 3 ML AMPUL.NEB INHALATION ×3 (06:51→19:38)
[2022-05-08] MEDS: Potassium Chloride Oral Tablet 20 MEQ PO ×2 (08:19→16:38)
[2022-05-08] MEDS: Aspirin 81 MG TAB.CHEW PO (08:19)
[2022-05-08 08:39] LABS: ALB/GLOB Ratio 0.8 RATIO (0.9-2.4); AST(SGOT) 89 U/L (15-37); Alanine Aminotransfer ALT/SGPT 38 U/L (16-61); Albumin, Serum 2.8 g/dL (3.2-5.0); Alkaline Phosphatase 83 U/L (45-117); Anion Gap 4 (5-15); BUN 48 mg/dL (7-18); BUN/Creat Ratio 19.7 RATIO (10-20); Calcium,Total 8.9 mg/dL (8.5-10.1); Chloride 105 mmol/L (98-107); Creatinine, Serum 2.44 mg/dL (0.70-1.30); EST Glomerular Filtration Rate 27 mL/min (>60); Est Glom Filt Rate - Afr Amer 33 mL/min (>60); Estimated Creatinine Clearance 23.33 ml/min; Globulin 3.7 g/dL (2.2-4.2); Glucose 151 mg/dL (74-106); Potassium 4.8 mmol/L (3.5-5.1); Protein, Total 6.5 g/dL (6.4-8.2); Sodium Level 139 mmol/L (136-145)
[2022-05-08] MEDS: Ceftriaxone 1 GM/50 ML BAG IV (09:38)
[2022-05-08] MEDS: Losartan Potassium 100 MG Tablet PO (09:38)
[2022-05-08] MEDS: Heparin Injection (Vial) 5,000 UNIT/ML VIAL 5000 UNIT SC (09:38)
[2022-05-08] MEDS: Metoprolol Tartrate 100 MG Tablet PO ×2 (09:38→21:14)
[2022-05-08] MEDS: NIFEdipine 60 MG Tablet PO (09:38)
--- NOTE | 2022-05-08 10:02 | CASEMGMT ---
SW met with patient. Introduced self and role at [facility]. RN was present in room tending to patient's wounds on his legs. Patient was okay with SW talking to him. SW asked patient if he feels he will need short term rehab at discharge. Patient said he does not think so. RN mentioned something about home health for wound care. DARIO passed along this message to RN BAILEE. Simi MOTA
--- NOTE | 2022-05-08 10:13 | EKG12_ITS ---
Test Reason : Blood Pressure : / mmHG Vent. Rate : 079 BPM Atrial Rate : 080 BPM P-R Int : 000 ms QRS Dur : 178 ms QT Int : 444 ms P-R-T Axes : 000 080 -21 degrees QTc Int : 509 ms Atrial fibrillation Right bundle branch block T wave abnormality, consider inferior ischemia Abnormal ECG When compared with ECG of 07-MAY-2022 06:07, MANUAL COMPARISON REQUIRED, DATA IS UNCONFIRMED Confirmed by ARNOLDO AG, SHO ([id number]), video effects editor SAMANTA LEE ([id number]) on 05/09/2022 1:32:33 PM Referred By: MCKENZIE Confirmed By:SHO MCLAUGHLIN MD
--- NOTE | 2022-05-08 10:30 | CASEMGMT ---
RN CM Face to Face with patient for initial transition planning/care coordination assessment. RN CM introduced self and role at [facility]. Patient lying in bed, alert and oriented, son and grandson at bedside. Patient willing to participate in assessment and is able to answer all questions appropriately. Care providers, pharmacy, and demographics verified. Patient wishes to discharge home with HHC. Patient provided list of HHC and DME in-network with patient's insurance with MCR ratings and quality measures. Patient and family to review and provided preferences Patient states he has no further needs or concerns at this time. CM to follow for discharge planning needs that may arise. PCP: [facility] Specialists: Mesha, journalism intern; Jose, assistant restaurant general manager; Hay, pain; Bairon, dermatologitst Preferred Pharmacy: [facility] Insurance: [employer] [facility] Prescription Benefit: yes Living Will/HPOA: yes, sumit Diallo LNOK: sons, grandson Living Arrangements: Patient lives alone in a 2 story home with bed and bath on first floor. Patient has ramp to enter the home. Patient states he is independent at home. Sons and grandson live next door and able to assist with wound care. Transportation: self, sons, grandson DME/HHC: Patient states he has shower chair, raised toilet, grab bars, hip kit, walker, rollator, medical alert, nebulizer, pulse ox, electric scooter, and access to portable concentrator. Patient has no preferences for DME. Patient has been to TCU in the past. Disposition Plan: Patient to discharge home with HHC, family support, and follow-up plans in place. Nita RAMIRES, RN, CM
[2022-05-08] MEDS: Insulin Lispro 100 UNIT/ML INSULN.PEN SC ×3 (11:46→21:15)
--- NOTE | 2022-05-08 11:46 | CASEMGMT ---
Addendum entered by Nita [place] 05/08/22 13:14: Call from [place] at [facility] and she states they can accept pt and do SOC on Thursday. CM to follow for home oxygen. Pt/family updated. Snow HOLT CM Original Note: Call from pt's son and he states they would like [facility] for DME at discharge and [facility] for SN, PT/OT. Referral to [place] at [facility] and awaiting call back with acceptance. CM to follow. Snow HOLT CM
[2022-05-08 11:50] LABS: Bedside Glucose 187 mg/dL (74-106)
--- NOTE | 2022-05-08 13:28 | WOUNDNOTE ---
JONATHON Uriarte had changed dressings to bilateral lower legs. SHARATH wraps remain D&I at this time.
[2022-05-08] MEDS: Menthol/Lanolin/Calamine/Znox 113 GM Tube 1 APPLIC TOPICAL ×2 (14:47→21:12)
[2022-05-08] MEDS: Acetaminophen 325 MG Tablet 650 MG PO (16:39)
[2022-05-08 16:41] LABS: Bedside Glucose 201 mg/dL (74-106)
--- NOTE | 2022-05-08 20:04 | PCM.PN.HOSP ---
Subjective Subjective Patient was seen and examined today, he appears comfortable and he is on nasal cannula oxygen 3 L. Patient's white blood cell count is normal today, patient's creatinine is slightly elevated over yesterday's creatinine. Since echocardiogram showed an ejection fraction of 55%, patient's right ventricular systolic pressure is elevated at 71. Objective Data Objective Data Vital Signs: Vital Signs Temp Pulse Resp BP Pulse Ox 98.0 F 74 18 123/69 H 94 05/08/22 18:00 05/08/22 19:00 05/08/22 18:00 05/08/22 18:00 05/08/22 18:00 Oxygen Flow Rate (L/min) 3 Oxygen Delivery Method Nasal Cannula Weight: 157.8 kg Body Mass Index (BMI) 53.6 Intake & Output: Intake and Output for Last 24 Hours 05/06/22 05/07/22 05/08/22 23:59 23:59 23:59 Intake Total 305 / 365 605 / 605 Output Total 700 / 700 1100 / 1100 Balance -395 / -335 -495 / -495 Lab / Micro Data Result Diagrams: 05/08/22 04:40 05/08/22 04:40 Labs: Laboratory Results - last 24 hr 05/07/22 20:23: POC Glucose 272 H 05/08/22 04:40: WBC 10.3, RBC 3.67 L, Hgb 11.9 L, Hct 38.4 L, MCV 104.6 H, MCH 32.4 H, MCHC 31.0 L, RDW Std Deviation 60.5 H, RDW Coeff of Petty 15.9 H, Plt Count 181, MPV 10.2, Immature Gran % (Auto) 0.600, Neut % (Auto) 75.3 H, Lymph % (Auto) 10.1 L, [place] % (Auto) 12.1 H, Eos % (Auto) 1.4, Baso % (Auto) 0.5, Absolute Neuts (auto) 7.8 H, Absolute Lymphs (auto) 1.04, Nucleated RBC % 0 05/08/22 04:40: Sodium 139, Potassium 4.8, Chloride 105, Carbon Dioxide 30.0, Anion Gap 4 L, BUN 48 H, Creatinine 2.44 H, Estim Creat Clear Calc 23.33, Est GFR (MDRD) Af Amer 33 L, Est GFR (MDRD) Non-Af 27 L, BUN/Creatinine Ratio 19.7, Glucose 151 H, Calcium 8.9, Total Bilirubin 1.10 H, AST 89 H, ALT 38, Alkaline Phosphatase 83, Total Protein 6.5, Albumin 2.8 L, Globulin 3.7, Albumin/Globulin Ratio 0.8 L 05/08/22 06:30: POC Glucose 128 H 05/08/22 11:44: POC Glucose 187 H 05/08/22 16:35: POC Glucose 201 H Micro: Microbiology 05/07/22 09:48 Mucosa - Nose Respiratory Panel (PCR) - Final 05/07/22 09:48 Nasal Secretion SARS-CoV-2 & FLU Antigen (Rapid) - Final Physical Exam Narrative alert, oriented x3 and no apparent distress Constitutional Narrative: Patient appears his stated age General Appearance: cooperative HEENT normocephalic, head/scalp atraumatic and hearing grossly normal bilaterally Eyes PERRL and EOMs intact bilaterally Neck supple, no JVD and no carotid bruits Resp normal respiratory effort, no retractions and no use of accessory muscles Cardio Cardio Narrative: Heart rate and rhythm is irregular GI normal to inspection, nondistended, normoactive bowel sounds, soft to palpation and non-tender Extremity Extremity Narrative: There was noted to be pitting edema in the pretibial areas of both legs-worse on the left Neuro oriented x3, CN's II-XII intact bilaterally and moves all extremities Sensorium / Orientation: awake, alert, oriented to person, oriented to place and oriented to time Speech: speech normal Motor Exam: strength 5/5 throughout Psych affect normal Assessment & Plan Assessment/Plan (1) Hypertension: (2) Type 2 diabetes mellitus: PLAN: Plan 1. Hypoxia-secondary to acute congestive heart [id number] community-acquired pneumonia-patient will remain on his present antibiotics and diuresis will continue with IV Lasix. #2 diastolic congestive heart failure-new diagnosis, continue administration of IV leg #3 hypoglycemia-secondary to insulin ministration at home, this appears to resolved at this time patient is alert and appropriate. Patient remains on sliding scale insulin #4 metabolic encephalopathy-secondary to hypoglycemia, this is resolved #5 new onset atrial fibrillation with well-controlled ventricular rate-patient will be monitored on telemetry, patient will be placed on Eliquis 5 mg twice daily use of anticoagulants was discussed with the patient nursing today. Patient is aware that he will be on an anticoagulant. #6 acute congestive heart [id number] will remain on IV Lasix at this time #7 type 2 diabetes-fingerstick blood sugars will be monitored, sliding scale insulin will be administered #8 morbid obesity-complicates care, recovery, and prognosis #9 community-acquired pneumonia-bacterial versus viral in etiology, respiratory panel will be obtained, patient will be maintained on IV Zithromax and Rocephin #10 chronic kidney disease-stage IIIb-complicates care recovery and prognosis #11 severe pulmonary hypertension-complicates care, recovery, and prognosis Charges/Coding Visit Charges Inpatient E&M: 74743 Subs Hosp L2
[2022-05-08] MEDS: oxyCODONE 5 MG Tablet PO (21:12)
[2022-05-08] MEDS: APIXABAN 5 MG TABLET PO (21:13)
[2022-05-08] MEDS: Atorvastatin Calcium 20 MG Tablet PO (21:14)
[2022-05-08 22:20] LABS: Bedside Glucose 256 mg/dL (74-106)
[2022-05-09] VITALS (14 sets, daily range): BP systolic 119–133; BP diastolic 64–70; PULSE 58–85; RESP 18–20; TEMP 35.7–36.8; O2SAT 86–100
[2022-05-09] MEDS: Menthol/Lanolin/Calamine/Znox 113 GM Tube 1 APPLIC TOPICAL ×3 (05:06→22:44)
[2022-05-09] MEDS: Nystatin Powder 15gm Bottle 1 APPLIC TOPICAL ×3 (05:06→22:53)
[2022-05-09] MEDS: Furosemide 20 MG/2 ML VIAL IV ×2 (05:07→22:44)
[2022-05-09] MEDS: 0.9% Saline Lock 10 ML Syringe IV ×3 (05:07→22:51)
[2022-05-09 05:53] LABS: Magnesium 1.8 mg/dL (1.6-2.6)
[2022-05-09] MEDS: Insulin Lispro 100 UNIT/ML INSULN.PEN SC ×4 (06:27→22:49)
[2022-05-09 06:40] LABS: Bedside Glucose 150 mg/dL (74-106)
[2022-05-09] MEDS: Ipratropium/Albuterol Sulfate 3 ML AMPUL.NEB INHALATION ×3 (06:42→19:49)
[2022-05-09] MEDS: Aspirin 81 MG TAB.CHEW PO (08:04)
[2022-05-09] MEDS: Potassium Chloride Oral Tablet 20 MEQ PO ×2 (08:04→17:07)
[2022-05-09] MEDS: oxyCODONE 5 MG Tablet PO (08:11)
--- NOTE | 2022-05-09 08:23 | PCM.PN.HOSP ---
Subjective Subjective Doing well, no issues overnight. He is down about 3 L of oxygen nasal cannula. Swelling is improved. Objective Data Objective Data Vital Signs: Vital Signs Temp Pulse Resp BP Pulse Ox 97.9 F 85 20 H 120/64 94 05/09/22 03:00 05/09/22 07:27 05/09/22 06:42 05/09/22 03:00 05/09/22 06:42 Oxygen Flow Rate (L/min) 4 Oxygen Delivery Method Nasal Cannula Weight: 347 lb 14.231 oz Body Mass Index (BMI) 53.6 Intake & Output: Intake and Output for Last 24 Hours 05/08/22 05/09/22 05/10/22 03:59 03:59 03:59 Intake Total 365 / 365 605 / 605 0 / 0 Output Total 700 / 700 1350 / 1350 0 / 0 Balance -335 / -335 -745 / -745 0 / 0 Lab / Micro Data Result Diagrams: 05/08/22 04:40 05/08/22 04:40 Labs: Laboratory Results - last 24 hr 05/08/22 04:40: Sodium 139, Potassium 4.8, Chloride 105, Carbon Dioxide 30.0, Anion Gap 4 L, BUN 48 H, Creatinine 2.44 H, Estim Creat Clear Calc 23.33, Est GFR (MDRD) Af Amer 33 L, Est GFR (MDRD) Non-Af 27 L, BUN/Creatinine Ratio 19.7, Glucose 151 H, Calcium 8.9, Total Bilirubin 1.10 H, AST 89 H, ALT 38, Alkaline Phosphatase 83, Total Protein 6.5, Albumin 2.8 L, Globulin 3.7, Albumin/Globulin Ratio 0.8 L 05/08/22 11:44: POC Glucose 187 H 05/08/22 16:35: POC Glucose 201 H 05/08/22 20:48: POC Glucose 256 H 05/09/22 05:18: Magnesium 1.8 05/09/22 06:25: POC Glucose 150 H Micro: Microbiology 05/07/22 09:48 Mucosa - Nose Respiratory Panel (PCR) - Final 05/07/22 09:48 Nasal Secretion SARS-CoV-2 & FLU Antigen (Rapid) - Final Physical Exam Const alert, oriented x3 and no apparent distress General Appearance: cooperative HEENT normocephalic and moist oral mucous membranes Eyes PERRL, EOMs intact bilaterally and conjunctivae normal Neck supple and no JVD Resp normal respiratory effort, no retractions and no use of accessory muscles Auscultation: diminished lung sounds; Negative for crackles, rales, rhonchi or wheezes Cardio regular rate, regular rhythm, S1 normal heart sound, S2 normal heart sound and no murmurs GI soft to palpation, non-tender and non-distended; Negative for hepatosplenomegaly Extremity Extremity Narrative: Bilateral extremities wrapped General Extremity: edema; Negative for clubbing or cyanosis Skin no rashes or lesions noted Neuro no focal motor deficits and no sensory deficits noted Psych affect normal Appearance: appropriate Assessment & Plan Assessment/Plan (1) Hypertension: (2) Type 2 diabetes mellitus: PLAN: Plan 1. Acute hypoxic respiratory failure secondary to acute on chronic diastolic CHF with severe pulmonary hypertension and community-acquired pneumonia ? Continue with oxygen, wean as able ? We will decrease his Lasix from 3 times daily to twice daily dosing secondary to climbing creatinine ? We will recheck kidney function in the morning ? EF of 55% with an RVSP of 71 mmHg ? Would recommend outpatient follow-up with cardiology and pulmonology. ? Respiratory panel and COVID are negative ? Continue with Rocephin and azithromycin 2. A. fib/HTN/HLD/morbid obesity ? Continue with his home blood pressure medications ? Blood pressure stable ? Continue with Eliquis ? BMI 53.7, discussed lifestyle modifications 2. DM2/CKD 3B ? We will hold his long-acting insulin ? Continue with Accu-Cheks AC at bedtime ? We will make adjustments as necessary ? Continue sliding scale insulin ? Renal function does appear to be at baseline DVT: Heparin Charges/Coding Visit Charges Inpatient E&M: 33877 Subs Hosp L2
[2022-05-09] MEDS: Losartan Potassium 100 MG Tablet PO (09:51)
[2022-05-09] MEDS: APIXABAN 5 MG TABLET PO ×2 (09:52→22:51)
[2022-05-09] MEDS: Metoprolol Tartrate 100 MG Tablet PO ×2 (09:52→22:52)
[2022-05-09] MEDS: NIFEdipine 60 MG Tablet PO (09:52)
[2022-05-09] MEDS: Ceftriaxone 1 GM/50 ML BAG IV (09:52)
[2022-05-09 11:40] LABS: Bedside Glucose 250 mg/dL (74-106)
--- NOTE | 2022-05-09 13:23 | CASEMGMT ---
[place] at [facility] notified that pt will not d/c today now and SOC has been moved back to 05/11/22. Green sheet left on chart for HHC and O2, if pt qualifies. Snow HOLT CM
[2022-05-09 17:15] LABS: Bedside Glucose 214 mg/dL (74-106)
--- NOTE | 2022-05-09 17:32 | NURSING ---
patient care assumed by this RN at 1500 05/09/22 from previous RN
[2022-05-09] MEDS: Atorvastatin Calcium 20 MG Tablet PO (22:52)
[2022-05-10] VITALS (12 sets, daily range): BP systolic 109–129; BP diastolic 50–87; PULSE 56–79; RESP 16–18; TEMP 35.7–36.8; O2SAT 94–98
[2022-05-10 00:06] LABS: Bedside Glucose 223 mg/dL (74-106)
[2022-05-10] MEDS: Nystatin Powder 15gm Bottle 1 APPLIC TOPICAL ×3 (05:00→21:58)
[2022-05-10] MEDS: Menthol/Lanolin/Calamine/Znox 113 GM Tube 1 APPLIC TOPICAL ×3 (05:00→21:57)
[2022-05-10] MEDS: Insulin Lispro 100 UNIT/ML INSULN.PEN SC ×4 (06:26→22:07)
[2022-05-10 07:01] LABS: Bedside Glucose 171 mg/dL (74-106)
[2022-05-10] MEDS: Ipratropium/Albuterol Sulfate 3 ML AMPUL.NEB INHALATION ×2 (07:08→18:51)
[2022-05-10] MEDS: Ceftriaxone 1 GM/50 ML BAG IV (08:58)
[2022-05-10] MEDS: Furosemide 20 MG/2 ML VIAL IV (09:41)
[2022-05-10] MEDS: Aspirin 81 MG TAB.CHEW PO (09:46)
[2022-05-10] MEDS: Potassium Chloride Oral Tablet 20 MEQ PO ×2 (09:46→17:09)
[2022-05-10] MEDS: Metoprolol Tartrate 100 MG Tablet PO ×2 (09:46→22:02)
[2022-05-10] MEDS: NIFEdipine 60 MG Tablet PO (09:46)
[2022-05-10] MEDS: Losartan Potassium 100 MG Tablet PO (09:46)
[2022-05-10] MEDS: APIXABAN 5 MG TABLET PO ×2 (09:46→22:02)
--- NOTE | 2022-05-10 10:22 | PCM.PN.HOSP ---
Subjective Subjective Doing well, feels little bit better. She were unable to get labs this morning we will still try to get any labs to monitor renal function. I did decrease his Lasix yesterday to twice daily dosing Objective Data Objective Data Vital Signs: Vital Signs Temp Pulse Resp BP Pulse Ox 97.7 F L 76 16 127/87 H 98 05/10/22 09:40 05/10/22 09:46 05/10/22 09:40 05/10/22 09:40 05/10/22 09:40 Oxygen Flow Rate (L/min) [ 2 AMBULATING with Oxygen #1] Oxygen Flow Rate (L/min) [At 2 REST with Oxygen] Oxygen Flow Rate (L/min) 2 Oxygen Delivery Method Nasal Cannula Weight: 347 lb 14.231 oz Body Mass Index (BMI) 53.6 Intake & Output: Intake and Output for Last 24 Hours 05/09/22 05/10/22 05/11/22 03:59 03:59 03:59 Intake Total 605 / 605 965 / 965 50 / 50 Output Total 1350 / 1350 550 / 550 250 / 250 Balance -745 / -745 415 / 415 -200 / -200 Lab / Micro Data Result Diagrams: 05/08/22 04:40 05/08/22 04:40 Labs: Laboratory Results - last 24 hr 05/09/22 11:34: POC Glucose 250 H 05/09/22 17:05: POC Glucose 214 H 05/09/22 22:49: POC Glucose 223 H 05/10/22 05:49: Sodium Cancelled, Potassium Cancelled, Chloride Cancelled, Carbon Dioxide Cancelled, Anion Gap Cancelled, BUN Cancelled, Creatinine Cancelled, Estim Creat Clear Calc Cancelled, Est GFR (MDRD) Af Amer Cancelled, Est GFR (MDRD) Non-Af Cancelled, BUN/Creatinine Ratio Cancelled, Glucose Cancelled, Calcium Cancelled 05/10/22 06:22: POC Glucose 171 H Micro: Microbiology 05/07/22 09:48 Mucosa - Nose Respiratory Panel (PCR) - Final 05/07/22 09:48 Nasal Secretion SARS-CoV-2 & FLU Antigen (Rapid) - Final Physical Exam Narrative Const alert, oriented x3 and no apparent distress General Appearance: cooperative HEENT normocephalic and moist oral mucous membranes Eyes PERRL, EOMs intact bilaterally and conjunctivae normal Neck supple and no JVD Resp normal respiratory effort, no retractions and no use of accessory muscles Auscultation: diminished lung sounds; Negative for crackles, rales, rhonchi or wheezes Cardio regular rate, regular rhythm, S1 normal heart sound, S2 normal heart sound and no murmurs GI soft to palpation, non-tender and non-distended; Negative for hepatosplenomegaly Extremity Extremity Narrative: Bilateral extremities wrapped General Extremity: edema; Negative for clubbing or cyanosis Skin no rashes or lesions noted Neuro no focal motor deficits and no sensory deficits noted Psych affect normal Appearance: appropriate Assessment & Plan Assessment/Plan (1) Hypertension: (2) Type 2 diabetes mellitus: PLAN: Plan 1.? Acute hypoxic respiratory failure secondary to acute on chronic diastolic CHF with severe pulmonary hypertension and community-acquired pneumonia ? Continue with oxygen, wean as able ? We will decrease his Lasix from 3 times daily to twice daily dosing secondary to climbing creatinine ? We will recheck kidney function in the morning ? EF of 55% with an RVSP of 71 mmHg ? Would recommend outpatient follow-up with cardiology and pulmonology. ? Respiratory panel and COVID are negative ? Continue with Rocephin and azithromycin 2.? A. fib/HTN/HLD/morbid obesity ? Continue with his home blood pressure medications ? Blood pressure stable ? Continue with Eliquis ? BMI 53.7, discussed lifestyle modifications 2.? DM2/CKD 3B ? We will hold his long-acting insulin ? Continue with Accu-Cheks AC at bedtime ? We will make adjustments as necessary ? Continue sliding scale insulin ? Renal function does appear to be at baseline DVT: Heparin Charges/Coding Visit Charges Inpatient E&M: 63620 Subs Hosp L2
[2022-05-10 10:54] LABS: Anion Gap 8 (5-15); BUN 70 mg/dL (7-18); BUN/Creat Ratio 24.1 RATIO (10-20); Calcium,Total 8.6 mg/dL (8.5-10.1); Chloride 102 mmol/L (98-107); EST Glomerular Filtration Rate 22 mL/min (>60); Est Glom Filt Rate - Afr Amer 27 mL/min (>60); Estimated Creatinine Clearance 19.63 ml/min; Glucose 314 mg/dL (74-106); Potassium 5.4 mmol/L (3.5-5.1); Sodium Level 136 mmol/L (136-145)
[2022-05-10 11:35] LABS: Bedside Glucose 275 mg/dL (74-106)
[2022-05-10 17:16] LABS: Bedside Glucose 203 mg/dL (74-106)
[2022-05-10] MEDS: Atorvastatin Calcium 20 MG Tablet PO (22:02)
[2022-05-11] VITALS (13 sets, daily range): BP systolic 110–128; BP diastolic 59–66; PULSE 57–82; RESP 16–20; TEMP 35.8–36.4; O2SAT 95–98
[2022-05-11 00:01] LABS: Bedside Glucose 295 mg/dL (74-106)
[2022-05-11] MEDS: oxyCODONE 5 MG Tablet PO ×3 (00:57→20:49)
[2022-05-11 05:56] LABS: Absolute Lymphocyte Count 1.11 X10^3/uL (0.83-4.51); Absolute Neutrophil Count 5.1 X10^3/uL (2.0-7.7); Basophil# 0.07 X10^3/uL; Basophil% 0.9 % (0-1); Eosinophil# 0.29 X10^3/uL; Eosinophils% 3.8 % (0-5); Hematocrit 37.1 % (40-54); Hemoglobin 11.2 g/dL (13.0-16.5); Lymphocyte # 1.11 X10^3/ul (0.83-4.51); Lymphocyte % 14.6 % (19-41); Mean Corp Hgb Conc 30.2 g/dL (32-36); Mean Corpuscular Hgb 32.3 pg (27.0-32.0); Mean Corpuscular Volume 106.9 fL (80-94); Mean Platelet Vol. 10.6 fl (6.2-12.0); Monocyte# 0.91 X10^3/uL; NRBC Flagged by Analyzer 0 % (0-5); Neutrophil # 5.14 X10^3/uL (2.7-7.7); Neutrophil % 67.6 % (47-70); Platelet Count 177 K/mm3 (150-450); RBC Distribution Width CV 15.9 % (11.6-14.6); RBC Distribution Width SD 61.5 fl (35.1-43.9); Red Blood Count 3.47 M/mm3 (4.6-6.2); White Blood Count 7.6 K/mm3 (4.4-11.0)
[2022-05-11 06:23] LABS: Anion Gap 6 (5-15); BUN 81 mg/dL (7-18); BUN/Creat Ratio 27.6 RATIO (10-20); Calcium,Total 8.5 mg/dL (8.5-10.1); Chloride 106 mmol/L (98-107); Creatinine, Serum 2.94 mg/dL (0.70-1.30); EST Glomerular Filtration Rate 22 mL/min (>60); Est Glom Filt Rate - Afr Amer 27 mL/min (>60); Estimated Creatinine Clearance 19.36 ml/min; Glucose 227 mg/dL (74-106); Potassium 5.7 mmol/L (3.5-5.1); Sodium Level 135 mmol/L (136-145)
[2022-05-11] MEDS: Ipratropium/Albuterol Sulfate 3 ML AMPUL.NEB INHALATION ×3 (07:10→19:07)
[2022-05-11] MEDS: Insulin Lispro 100 UNIT/ML INSULN.PEN SC ×4 (07:32→20:53)
[2022-05-11] MEDS: Acetaminophen 325 MG Tablet 650 MG PO (07:32)
[2022-05-11] MEDS: Ceftriaxone 1 GM/50 ML BAG IV (09:12)
[2022-05-11] MEDS: Aspirin 81 MG TAB.CHEW PO (09:15)
[2022-05-11] MEDS: Metoprolol Tartrate 100 MG Tablet PO ×2 (09:15→21:17)
[2022-05-11] MEDS: APIXABAN 5 MG TABLET PO ×2 (09:15→20:54)
[2022-05-11] MEDS: Losartan Potassium 100 MG Tablet PO (09:16)
[2022-05-11] MEDS: NIFEdipine 60 MG Tablet PO (09:16)
--- NOTE | 2022-05-11 10:05 | PCM.PN.HOSP ---
Subjective Subjective Doing well, no issues overnight. Unfortunate his renal function continues to rise, his Lasix has been discontinued and we will give him a little bit of fluid today and reevaluate in the morning Objective Data Objective Data Vital Signs: Vital Signs Temp Pulse Resp BP Pulse Ox 97.4 F L 69 16 121/66 H 97 05/11/22 09:11 05/11/22 09:15 05/11/22 09:11 05/11/22 09:11 05/11/22 09:11 Oxygen Flow Rate (L/min) [ 2 AMBULATING with Oxygen #1] Oxygen Flow Rate (L/min) [At 2 REST with Oxygen] Oxygen Flow Rate (L/min) 2 Oxygen Delivery Method Nasal Cannula Weight: 347 lb 14.231 oz Body Mass Index (BMI) 53.6 Intake & Output: Intake and Output for Last 24 Hours 05/10/22 05/11/22 05/12/22 03:59 03:59 03:59 Intake Total 965 / 965 905 / 905 550 / 550 Output Total 550 / 550 1150 / 1150 350 / 350 Balance 415 / 415 -245 / -245 200 / 200 Lab / Micro Data Result Diagrams: 05/11/22 05:44 05/11/22 05:44 Labs: Laboratory Results - last 24 hr 05/10/22 10:15: Sodium 136, Potassium 5.4 H, Chloride 102, Carbon Dioxide 26.0, Anion Gap 8, BUN 70 H, Creatinine 2.90 H, Estim Creat Clear Calc 19.63, Est GFR (MDRD) Af Amer 27 L, Est GFR (MDRD) Non-Af 22 L, BUN/Creatinine Ratio 24.1 H, Glucose 314 H, Calcium 8.6 05/10/22 11:25: POC Glucose 275 H 05/10/22 17:07: POC Glucose 203 H 05/10/22 22:05: POC Glucose 295 H 05/11/22 05:44: WBC 7.6, RBC 3.47 L, Hgb 11.2 L, Hct 37.1 L, MCV 106.9 H, MCH 32.3 H, MCHC 30.2 L, RDW Std Deviation 61.5 H, RDW Coeff of Petty 15.9 H, Plt Count 177, MPV 10.6, Immature Gran % (Auto) 1.100 H, Neut % (Auto) 67.6, Lymph % (Auto) 14.6 L, [place] % (Auto) 12.0 H, Eos % (Auto) 3.8, Baso % (Auto) 0.9, Absolute Neuts (auto) 5.1, Absolute Lymphs (auto) 1.11, Nucleated RBC % 0 05/11/22 05:44: Sodium 135 L, Potassium 5.7 H, Chloride 106, Carbon Dioxide 23.0, Anion Gap 6, BUN 81 H, Creatinine 2.94 H, Estim Creat Clear Calc 19.36, Est GFR (MDRD) Af Amer 27 L, Est GFR (MDRD) Non-Af 22 L, BUN/Creatinine Ratio 27.6 H, Glucose 227 H, Calcium 8.5 Micro: Microbiology 05/07/22 09:48 Mucosa - Nose Respiratory Panel (PCR) - Final 05/07/22 09:48 Nasal Secretion SARS-CoV-2 & FLU Antigen (Rapid) - Final Physical Exam Narrative Const alert, oriented x3 and no apparent distress General Appearance: cooperative HEENT normocephalic and moist oral mucous membranes Eyes PERRL, EOMs intact bilaterally and conjunctivae normal Neck supple and no JVD Resp normal respiratory effort, no retractions and no use of accessory muscles Auscultation: diminished lung sounds; Negative for crackles, rales, rhonchi or wheezes Cardio regular rate, regular rhythm, S1 normal heart sound, S2 normal heart sound and no murmurs GI soft to palpation, non-tender and non-distended; Negative for hepatosplenomegaly Extremity Extremity Narrative: Bilateral extremities wrapped General Extremity: edema; Negative for clubbing or cyanosis Skin no rashes or lesions noted Neuro no focal motor deficits and no sensory deficits noted Psych affect normal Appearance: appropriate Assessment & Plan Assessment/Plan (1) Hypertension: (2) Type 2 diabetes mellitus: PLAN: Plan 1.? Acute hypoxic respiratory failure secondary to acute on chronic diastolic CHF with severe pulmonary hypertension and community-acquired pneumonia ? Continue with oxygen, wean as able ? We will continue to hold Lasix ? We will recheck kidney function in the morning ? EF of 55% with an RVSP of 71 mmHg ? Would recommend outpatient follow-up with cardiology and pulmonology. ? Respiratory panel and COVID are negative ? Continue with Rocephin, he completed azithromycin 2.? A. fib/HTN/HLD/morbid obesity ? Continue with his home blood pressure medications ? Blood pressure stable ? Continue with Eliquis ? BMI 53.7, discussed lifestyle modifications 2.? DM2/SAQIB on CKD 3B ? We will hold his long-acting insulin ? Continue with Accu-Cheks AC at bedtime ? We will make adjustments as necessary ? Continue sliding scale insulin ? Renal function has climb to 2.94 today, his Lasix has been discontinued and we will give him a 500 cc bolus and reevaluate his renal function in the morning DVT: Heparin Charges/Coding Visit Charges Inpatient E&M: 78067 Subs Hosp L2
[2022-05-11 11:16] LABS: Bedside Glucose 283 mg/dL (74-106)
[2022-05-11] MEDS: Menthol/Lanolin/Calamine/Znox 113 GM Tube 1 APPLIC TOPICAL ×2 (13:02→20:54)
[2022-05-11] MEDS: Nystatin Powder 15gm Bottle 1 APPLIC TOPICAL ×2 (13:02→20:54)
[2022-05-11 16:56] LABS: Bedside Glucose 281 mg/dL (74-106)
[2022-05-11] MEDS: Atorvastatin Calcium 20 MG Tablet PO (20:54)
[2022-05-11] MEDS: 0.9% Saline Lock 10 ML Syringe IV (20:56)
[2022-05-11 22:26] LABS: Bedside Glucose 337 mg/dL (74-106)
[2022-05-12] VITALS (13 sets, daily range): BP systolic 101–137; BP diastolic 47–64; PULSE 63–83; RESP 16–19; TEMP 36.4; O2SAT 94–98
[2022-05-12] MEDS: Acetaminophen 325 MG Tablet 650 MG PO ×2 (00:56→08:14)
[2022-05-12] MEDS: Nystatin Powder 15gm Bottle 1 APPLIC TOPICAL ×3 (05:12→22:14)
[2022-05-12] MEDS: Menthol/Lanolin/Calamine/Znox 113 GM Tube 1 APPLIC TOPICAL ×3 (05:13→22:13)
[2022-05-12 06:25] LABS: Anion Gap 8 (5-15); BUN 90 mg/dL (7-18); BUN/Creat Ratio 31.1 RATIO (10-20); Calcium,Total 8.6 mg/dL (8.5-10.1); Chloride 104 mmol/L (98-107); Creatinine, Serum 2.89 mg/dL (0.70-1.30); EST Glomerular Filtration Rate 23 mL/min (>60); Est Glom Filt Rate - Afr Amer 27 mL/min (>60); Glucose 274 mg/dL (74-106); Potassium 5.7 mmol/L (3.5-5.1); Sodium Level 135 mmol/L (136-145)
[2022-05-12] MEDS: Insulin Lispro 100 UNIT/ML INSULN.PEN SC ×4 (06:28→22:11)
--- NOTE | 2022-05-12 06:43 | NURSING ---
pt had x1 unmeasured urine per pt small amt only. BS pt for 0ml.
[2022-05-12 06:55] LABS: Bedside Glucose 239 mg/dL (74-106)
[2022-05-12] MEDS: Ipratropium/Albuterol Sulfate 3 ML AMPUL.NEB INHALATION ×3 (07:23→19:21)
[2022-05-12] MEDS: Aspirin 81 MG TAB.CHEW PO (08:13)
[2022-05-12] MEDS: Losartan Potassium 100 MG Tablet PO (08:13)
[2022-05-12] MEDS: oxyCODONE 5 MG Tablet PO (08:13)
[2022-05-12] MEDS: APIXABAN 5 MG TABLET PO ×2 (08:13→22:11)
[2022-05-12] MEDS: NIFEdipine 60 MG Tablet PO (08:13)
[2022-05-12] MEDS: Ceftriaxone 1 GM/50 ML BAG IV (08:13)
[2022-05-12] MEDS: Metoprolol Tartrate 100 MG Tablet PO (08:13)
--- NOTE | 2022-05-12 09:46 | DCINST_ITS ---
Discharge Instructions Diet Discharge Diet: Low fat / Low cholesterol, 1800 Calorie Control Diet, 6 Cup Fluid Restriction and Carb Control Diet Activity Discharge Activity: Return to Normal Activity Dressing / Incision Call your doctor if you observe: Fever of 101 or Higher, Shortness of breath, Dizziness, Fainting spells, Swelling in the ankles, Chest pain and Increased palpitations (irregular heartbeat) Follow Up Care Test Results: Test results from this visit will be discussed in further detail at your follow- up appointment, if applicable. Discharge Plan Admission Admit Date/Time: 05/07/22 10:55 Attending Provider: Tomas Mcbride Primary Care Provider: Alvarado Sam Consulting Providers: Alvarado Parada Discharge Orders/Prescriptions Prescriptions: New Eliquis 5 mg Tablet 5 mg PO BID 30 Days Qty: 60 0RF Continued metoprolol tartrate 50 MG tablet 100 mg PO BID aspirin 81 MG tablet,chewable 81 mg PO DAILY@0800 allopurinol 300 MG tablet 300 mg PO DAILY vitamin B complex 1 EACH capsule 1 ea PO DAILY cyclobenzaprine 10 MG tablet 5 mg PO BID oxycodone-acetaminophen 1 EACH tablet 1 - 2 tab PO Q6H PRN PRN (Reason: Pain) Label Comments: take 1 tablet by mouth twice a day if needed for pain cetirizine 10 mg Tablet 10 mg PO DAILY oxybutynin chloride [Ditropan XL] 10 mg Tablet Extended Release 24hr 10 mg PO DAILY pravastatin 40 mg Tablet 40 mg PO QHS nifedipine 60 mg Tablet Extended Release 24hr 60 mg PO DAILY albuterol 90 mcg/actuation Aerosol 2 mcg INHALATION Q4H PRN PRN (Reason: Shortness Of Breath Or Wheezing) Rx Instructions: 2 puffs q4hr prn losartan 100 mg Tablet 100 mg PO DAILY multivitamin Capsule 1 cap PO DAILY ezetimibe [Zetia] 10 mg Tablet 10 mg PO DAILY dutasteride [Avodart] 0.5 mg Capsule 0.5 mg PO DAILY insulin aspart U-100 [Novolog Flexpen U-100 Insulin] 100 unit/mL (3 mL) Insulin Pen 30 unit SUBCUT 4X/DAY gabapentin 100 mg Tablet 100 mg PO TID cholecalciferol (vitamin D3) [Vitamin D3] 50 mcg (2,000 unit) Capsule 50 mcg PO DAILY azelastine-fluticasone 137-50 mcg/spray [place],Non-Aerosol 1 spray INTRANASAL BID Rx Instructions: administer into each nostril Soliqua 100/33 100 unit-33 mcg/mL Insulin Pen 55 unit SUBCUT DAILY Held torsemide 20 mg Tablet 30 mg PO DAILY Hold Instructions: Resume on 05/15/22. spironolactone 25 mg Tablet 25 mg PO DAILY Hold Instructions: Resume on 05/15/22. Referrals / Follow Up: Alvarado Sam MD [Primary Care Provider] - Disposition Disposition (needs filled in before D/C Order can be placed): Home Health Service
--- NOTE | 2022-05-12 10:37 | CASEMGMT ---
This RN CM to room to discuss discharge plan with pt and son and son is concerned about pt going home now. Son is interested in rehab for pt and provided list of SNF providers including quality and resource use data and consistent with the pt's preferred geographic region, medical needs, and insurance network. Son states they [facility] like [facility] and [facility] aware. TCU has a bed and will start precert for pt. Call to [place] at [facility] to notify that pt will be going to TCU now, voices understanding. CM to follow. SStaten JONATHON CM
[2022-05-12] MEDS: Sodium Polystyrene Sulfonate 15 GM/60 ML UDC PO (11:23)
--- NOTE | 2022-05-12 11:27 | PCM.PN.HOSP ---
Subjective Subjective Doing well today, maintaining his oxygen saturations on 2 L nasal cannula. Kidney function is improving and potassium is stable. Family is concerned about him going home and would prefer if he would go to a [facility] facility. Objective Data Objective Data Vital Signs: Vital Signs Temp Pulse Resp BP Pulse Ox 97.6 F L 72 16 118/51 L 98 05/12/22 08:05 05/12/22 08:13 05/12/22 08:05 05/12/22 08:13 05/12/22 08:05 Oxygen Flow Rate (L/min) [ 2 AMBULATING with Oxygen #1] Oxygen Flow Rate (L/min) [At 2 REST with Oxygen] Oxygen Flow Rate (L/min) 2 Oxygen Delivery Method Nasal Cannula Weight: 347 lb 14.231 oz Body Mass Index (BMI) 53.6 Intake & Output: Intake and Output for Last 24 Hours 05/11/22 05/12/22 05/13/22 03:59 03:59 03:59 Intake Total 905 / 905 1280 / 1280 50 / 50 Output Total 1150 / 1150 1075 / 1075 Balance -245 / -245 205 / 205 50 / 50 Lab / Micro Data Result Diagrams: 05/11/22 05:44 05/12/22 05:19 Labs: Laboratory Results - last 24 hr 05/11/22 16:39: POC Glucose 281 H 05/11/22 20:52: POC Glucose 337 H 05/12/22 05:19: Sodium 135 L, Potassium 5.7 H, Chloride 104, Carbon Dioxide 23.0, Anion Gap 8, BUN 90 H, Creatinine 2.89 H, Estim Creat Clear Calc 19.70, Est GFR (MDRD) Af Amer 27 L, Est GFR (MDRD) Non-Af 23 L, BUN/Creatinine Ratio 31.1 H, Glucose 274 H, Calcium 8.6 05/12/22 06:24: POC Glucose 239 H Micro: Microbiology 05/07/22 09:48 Mucosa - Nose Respiratory Panel (PCR) - Final 05/07/22 09:48 Nasal Secretion SARS-CoV-2 & FLU Antigen (Rapid) - Final Physical Exam Narrative Const alert, oriented x3 and no apparent distress General Appearance: cooperative HEENT normocephalic and moist oral mucous membranes Eyes PERRL, EOMs intact bilaterally and conjunctivae normal Neck supple and no JVD Resp normal respiratory effort, no retractions and no use of accessory muscles Auscultation: diminished lung sounds; Negative for crackles, rales, rhonchi or wheezes Cardio regular rate, regular rhythm, S1 normal heart sound, S2 normal heart sound and no murmurs GI soft to palpation, non-tender and non-distended; Negative for hepatosplenomegaly Extremity Extremity Narrative: Bilateral extremities wrapped General Extremity: edema; Negative for clubbing or cyanosis Skin no rashes or lesions noted Neuro no focal motor deficits and no sensory deficits noted Psych affect normal Appearance: appropriate Assessment & Plan Assessment/Plan (1) Hypertension: (2) Type 2 diabetes mellitus: PLAN: Plan 1.? Acute hypoxic respiratory failure secondary to acute on chronic diastolic CHF with severe pulmonary hypertension and community-acquired pneumonia ? Continue with oxygen, wean as able ? We will continue to hold Lasix ? Renal function has improved slightly, will give some Kayexalate for his potassium level ? EF of 55% with an RVSP of 71 mmHg ? Would recommend outpatient follow-up with cardiology and pulmonology. ? Respiratory panel and COVID are negative ? He has completed azithromycin and Rocephin 2.? A. fib/HTN/HLD/morbid obesity ? Continue with his home blood pressure medications ? Blood pressure stable ? Continue with Eliquis ? BMI 53.7, discussed lifestyle modifications 2.? DM2/SAQIB on CKD 3B ? Continue with Accu-Cheks AC at bedtime ? We will make adjustments as necessary ? Continue sliding scale insulin ? Renal function has decreased to 2.89, will continue to hold his Lasix and monitor DVT: Heparin Charges/Coding Visit Charges Inpatient E&M: 96318 Subs Hosp L2
--- NOTE | 2022-05-12 11:32 | WOUNDNOTE ---
wound photo: left lower leg
--- NOTE | 2022-05-12 11:33 | WOUNDNOTE ---
wound photo: right lower leg
--- NOTE | 2022-05-12 11:34 | WOUNDNOTE ---
wound photo: right posterolateral lower leg
[2022-05-12 12:11] LABS: Bedside Glucose 334 mg/dL (74-106)
--- NOTE | 2022-05-12 15:40 | CASEMGMT ---
DARIO called patient's son Maynor and let him know it is possible patient may go to TCU today. DARIO let him know someone will call and notify him if patient is moved today. Plan: d/c to [facility] TCU under skilled level of care pending insurance approval. Simi MOTA
--- NOTE | 2022-05-12 15:41 | PCM.TXEXTCAR ---
Diet 05/07/22 11:45 Diet: Cardiac: Calorie-Controlled Food consistency:: Regular Liquid Consistency:: Regular/Thin How many daily calories?: 1800 calorie Routine Orders/Code Status Routine Lab Work: CBC and BMP Code Status: Full Code Wound(s) RLE: Wound Type: scattered open blisters Dressing Change: Adaptic LLE: Wound Type: scattered open blisters Dressing Change: Adaptic right posterior lower leg: Wound Type: open blister Dressing Change: Adaptic right [place]: Wound Type: open blister Dressing Change: Adaptic right knee: Wound Type: open blister Dressing Change: Adaptic right lower thigh: Wound Type: open blister Dressing Change: Adaptic left [place]: Wound Type: open blister Dressing Change: Adaptic left upper [place]: Wound Type: open blister Dressing Change: Adaptic left knee: Wound Type: open blister Dressing Change: Adaptic R hip: Wound Type: Skin Tear Therapies Physical Therapy: Eval and Treat Occupational Therapy: Eval and Treat Problem/Diagnosis (1) Hypertension: Status: Chronic (2) Type 2 diabetes mellitus: Status: Chronic Allergies/Procedures Done in Hospital Allergies grass pollen Allergy (Verified 05/07/22 05:53) Hives Latex, Natural Rubber Allergy (Verified 05/07/22 05:53) Unknown Procedures: None Type of Care/Length of Stay Estimated LOS: Convalescent Care Less Than 30 days Type of Care Needed: Skilled Rehab Potential: Good Prognosis: Good Additional Orders/Day of Discharge Day of Discharge: 05/12/22 Dietary and Speech Recommendations Dietitian Recommendations/Changes: Continue Cardiac 1800kcal diet Discharge Plan Admission Admit Date/Time: 05/07/22 10:55 Attending Provider: Tomas Mcbride Primary Care Provider: Alvarado Sam Consulting Providers: Alvarado Parada Discharge Orders/Prescriptions Prescriptions: New Eliquis 5 mg Tablet 5 mg PO BID 30 Days Qty: 60 0RF Continued metoprolol tartrate 50 MG tablet 100 mg PO BID aspirin 81 MG tablet,chewable 81 mg PO DAILY@0800 allopurinol 300 MG tablet 300 mg PO DAILY vitamin B complex 1 EACH capsule 1 ea PO DAILY cyclobenzaprine 10 MG tablet 5 mg PO BID oxycodone-acetaminophen 1 EACH tablet 1 - 2 tab PO Q6H PRN PRN (Reason: Pain) Label Comments: take 1 tablet by mouth twice a day if needed for pain cetirizine 10 mg Tablet 10 mg PO DAILY oxybutynin chloride [Ditropan XL] 10 mg Tablet Extended Release 24hr 10 mg PO DAILY pravastatin 40 mg Tablet 40 mg PO QHS nifedipine 60 mg Tablet Extended Release 24hr 60 mg PO DAILY albuterol 90 mcg/actuation Aerosol 2 mcg INHALATION Q4H PRN PRN (Reason: Shortness Of Breath Or Wheezing) Rx Instructions: 2 puffs q4hr prn losartan 100 mg Tablet 100 mg PO DAILY multivitamin Capsule 1 cap PO DAILY ezetimibe [Zetia] 10 mg Tablet 10 mg PO DAILY dutasteride [Avodart] 0.5 mg Capsule 0.5 mg PO DAILY insulin aspart U-100 [Novolog Flexpen U-100 Insulin] 100 unit/mL (3 mL) Insulin Pen 30 unit SUBCUT 4X/DAY gabapentin 100 mg Tablet 100 mg PO TID cholecalciferol (vitamin D3) [Vitamin D3] 50 mcg (2,000 unit) Capsule 50 mcg PO DAILY azelastine-fluticasone 137-50 mcg/spray [place],Non-Aerosol 1 spray INTRANASAL BID Rx Instructions: administer into each nostril Soliqua 100/33 100 unit-33 mcg/mL Insulin Pen 55 unit SUBCUT DAILY Held torsemide 20 mg Tablet 30 mg PO DAILY Hold Instructions: Resume on 05/15/22. spironolactone 25 mg Tablet 25 mg PO DAILY Hold Instructions: Resume on 05/15/22. Referrals / Follow Up: Alvarado Sam MD [Primary Care Provider] - Disposition Disposition (needs filled in before D/C Order can be placed): [facility]
[2022-05-12 17:16] LABS: Bedside Glucose 304 mg/dL (74-106)
[2022-05-12] MEDS: Atorvastatin Calcium 20 MG Tablet PO (22:11)
[2022-05-12] MEDS: 0.9% Saline Lock 10 ML Syringe IV (22:11)
[2022-05-12] MEDS: Insulin Glargine-YFGN 100 UNIT/ML Pen 10 UNIT SC (22:11)
[2022-05-12 22:31] LABS: Bedside Glucose 316 mg/dL (74-106)
[2022-05-13] VITALS (11 sets, daily range): BP systolic 105–134; BP diastolic 48–67; PULSE 65–93; RESP 18–20; TEMP 36.4; O2SAT 94–99
[2022-05-13] MEDS: oxyCODONE 5 MG Tablet PO ×3 (00:07→15:11)
[2022-05-13] MEDS: Menthol/Lanolin/Calamine/Znox 113 GM Tube 1 APPLIC TOPICAL ×2 (04:21→14:28)
[2022-05-13] MEDS: Nystatin Powder 15gm Bottle 1 APPLIC TOPICAL ×2 (04:21→14:27)
[2022-05-13] MEDS: Insulin Lispro 100 UNIT/ML INSULN.PEN SC ×3 (06:29→17:00)
[2022-05-13 06:42] LABS: Absolute Lymphocyte Count 0.72 X10^3/uL (0.83-4.51); Absolute Neutrophil Count 5.3 X10^3/uL (2.0-7.7); Basophil# 0.05 X10^3/uL; Basophil% 0.7 % (0-1); Eosinophil# 0.24 X10^3/uL; Eosinophils% 3.3 % (0-5); Hematocrit 36.4 % (40-54); Hemoglobin 11.4 g/dL (13.0-16.5); Lymphocyte # 0.72 X10^3/ul (0.83-4.51); Mean Corp Hgb Conc 31.3 g/dL (32-36); Mean Corpuscular Hgb 31.8 pg (27.0-32.0); Mean Corpuscular Volume 101.7 fL (80-94); Monocyte# 0.84 X10^3/uL; Monocyte% 11.7 % (0-10); NRBC Flagged by Analyzer 0 % (0-5); Neutrophil % 73.5 % (47-70); Platelet Count 200 K/mm3 (150-450); RBC Distribution Width SD 56.2 fl (35.1-43.9); Red Blood Count 3.58 M/mm3 (4.6-6.2); White Blood Count 7.2 K/mm3 (4.4-11.0)
[2022-05-13 06:45] LABS: Bedside Glucose 272 mg/dL (74-106)
[2022-05-13] MEDS: Ipratropium/Albuterol Sulfate 3 ML AMPUL.NEB INHALATION ×2 (07:08→13:37)
[2022-05-13 07:12] LABS: Anion Gap 10 (5-15); BUN 100 mg/dL (7-18); BUN/Creat Ratio 36.2 RATIO (10-20); Calcium,Total 8.8 mg/dL (8.5-10.1); Chloride 103 mmol/L (98-107); Creatinine, Serum 2.76 mg/dL (0.70-1.30); EST Glomerular Filtration Rate 24 mL/min (>60); Est Glom Filt Rate - Afr Amer 29 mL/min (>60); Estimated Creatinine Clearance 20.62 ml/min; Glucose 281 mg/dL (74-106); Potassium 5.1 mmol/L (3.5-5.1); Sodium Level 137 mmol/L (136-145)
[2022-05-13] MEDS: Aspirin 81 MG TAB.CHEW PO (09:10)
[2022-05-13] MEDS: Losartan Potassium 100 MG Tablet PO (09:10)
[2022-05-13] MEDS: NIFEdipine 60 MG Tablet PO (09:11)
[2022-05-13] MEDS: Metoprolol Tartrate 100 MG Tablet PO (09:11)
[2022-05-13] MEDS: APIXABAN 5 MG TABLET PO (09:11)
[2022-05-13] MEDS: Ceftriaxone 1 GM/50 ML BAG IV (09:15)
[2022-05-13] MEDS: 0.9% Saline Lock 10 ML Syringe IV (09:19)
--- NOTE | 2022-05-13 10:16 | PHA.DC.MR ---
Pharmacy Service has performed discharge medication reconciliation for this patient. The patient's discharge medication list was reviewed for discrepancies and discrepancies were resolved. Home Medications allopurinol 300 mg tablet 300 mg PO DAILY 01/04/15 aspirin 81 mg chewable tablet 81 mg PO DAILY@0800 01/04/15 metoprolol tartrate 50 mg tablet 100 mg PO BID heart/bloodpressure 01/04/15 vitamin B complex 1 ea PO DAILY suppliment 10/24/16 cyclobenzaprine 10 mg tablet 5 mg PO BID muscle spasm 08/13/18 oxycodone-acetaminophen 5 mg-325 mg tablet 1 - 2 tab PO Q6H PRN PRN Pain 02/12/19 albuterol 90 mcg/actuation aerosol inhaler 2 mcg inhalation Q4H PRN PRN Shortness Of Breath Or Wheezing 05/08/22 azelastine-fluticasone 137 mcg-50 mcg/spray nasal spray 1 spray intranasal BID allergies 05/08/22 cetirizine 10 mg tablet 10 mg PO DAILY allergies 05/08/22 cholecalciferol (vitamin D3) 50 mcg (2,000 unit) capsule (Vitamin D3) 50 mcg PO DAILY suppliment 05/08/22 dutasteride 0.5 mg capsule (Avodart) 0.5 mg PO DAILY Check with primary doctor 05/08/22 ezetimibe 10 mg tablet (Zetia) 10 mg PO DAILY cholesterol 05/08/22 gabapentin 100 mg tablet 100 mg PO TID neuropathy 05/08/22 insulin aspart U-100 100 unit/mL (3 mL) subcutaneous pen (Novolog Flexpen U-100 Insulin aspart) 30 unit subcut 4X/DAY diabetes 05/08/22 insulin glargine 100 unit-lixisenatide 33 mcg/mL subcutaneous pen (Soliqua 100/33) 55 unit subcut DAILY diabetes 05/08/22 losartan 100 mg tablet 100 mg PO DAILY heart/blood pressure 05/08/22 multivitamin 1 cap PO DAILY suppliement 05/08/22 nifedipine 60 mg tablet,extended release 24 hr 60 mg PO DAILY heart 05/08/22 oxybutynin chloride 10 mg tablet,extended release 24 hr (Ditropan XL) 10 mg PO DAILY bladder control 05/08/22 pravastatin 40 mg tablet 40 mg PO QHS cholesterol 05/08/22 spironolactone 25 mg tablet 25 mg PO DAILY diuretic 05/08/22 torsemide 20 mg tablet 30 mg PO DAILY Check with primary doctor 05/08/22 apixaban 5 mg tablet (Eliquis) 5 mg PO BID 30 days #60 tabs 05/12/22
[2022-05-13 12:20] LABS: Bedside Glucose 333 mg/dL (74-106)
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
--- NOTE | 2022-05-13 15:51 | CASEMGMT ---
Patient's insurance approved patient for TCU. SW notified patient he will be going to TCU today. SW also called and notified patient's son Maynor. RN and legal secretary also aware. Plan: d/c to [facility] TCU under skilled level of care. Simi MOTA
--- NOTE | 2022-05-13 16:52 | NURSING ---
Report called to nurse Lopez in TCU for pt to be d/c.
[2022-05-13 17:06] LABS: Bedside Glucose 261 mg/dL (74-106)
== END 2022-05-13 17:45 | disposition skilled nursing facility (03) | DRG 291 ==
LOC: ED 09:28 → PCU 10:03
PROVIDERS: Internal Medicine; Admitting Provider Internal Medicine; Emergency Provider Emergency Medicine; PCP Family Medicine; Visit Provider Family Medicine
DX: I13.0 Hypertensive heart and chronic kidney disease with heart failure and stage 1 through stage 4 chronic kidney disease, or unspecified chronic kidney disease (principal); J96.01 Acute respiratory failure with hypoxia; G93.41 Metabolic encephalopathy; J18.9 Pneumonia, unspecified organism; I50.33 Acute on chronic diastolic (congestive) heart failure; J44.0 Chronic obstructive pulmonary disease with (acute) lower respiratory infection; N17.9 Acute kidney failure, unspecified; Z68.43 Body mass index [BMI] 50.0-59.9, adult; E11.649 Type 2 diabetes mellitus with hypoglycemia without coma; I27.20 Pulmonary hypertension, unspecified; E86.0 Dehydration; E11.22 Type 2 diabetes mellitus with diabetic chronic kidney disease; I48.91 Unspecified atrial fibrillation; Z79.4 Long term (current) use of insulin; E66.01 Morbid (severe) obesity due to excess calories; N18.32 Chronic kidney disease, stage 3b; E78.5 Hyperlipidemia, unspecified; S00.31XA Abrasion of nose, initial encounter; W18.30XA Fall on same level, unspecified, initial encounter; Y92.019 Unspecified place in single-family (private) house as the place of occurrence of the external cause; Z20.822 Contact with and (suspected) exposure to COVID-19; Z79.82 Long term (current) use of aspirin; Z79.01 Long term (current) use of anticoagulants; Z79.899 Other long term (current) drug therapy; Z87.891 Personal history of nicotine dependence
CPT/HCPCS: 36415; 36600; 70450; 71045; 72125; 80048; 80053; 82550; 82803; 82962; 83735; 83880; 84443; 84484; 85025; 85610; 85730; 87426; 87428; 87633; 93005; 93306; 94640; 97110; 97162; 97166; 97530; 97535; 97802; 99251; 99285; J7040; Q9957; A4216; G0463; J1940

== ENCOUNTER 2022-05-13 18:15 | Inpatient (IN) | payer MEDICARE, SELFPAY ==
[2022-05-13 20:32] VITALS: BMI 55.5
[2022-05-13 21:00] VITALS: BP 136/53; PULSE 77; RESP 18; TEMP 37; O2SAT 91; O2SAT 97
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
[2022-05-13 21:31] LABS: Bedside Glucose 304 mg/dL (74-106)
[2022-05-13] MEDS: Senna/Docusate Sodium 1 Tablet 2 TABLET PO (23:59)
[2022-05-13] MEDS: Gabapentin 100 MG Capsule PO (23:59)
[2022-05-13] MEDS: Pravastatin 40 MG Tablet PO (23:59)
[2022-05-14] MEDS: Insulin Lispro 100 UNIT/ML INSULN.PEN 30 UNIT SC ×3 (00:01→11:17)
[2022-05-14 05:44] LABS: Absolute Lymphocyte Count 0.76 X10^3/uL (0.83-4.51); Basophil# 0.06 X10^3/uL; Basophil% 0.9 % (0-1); Eosinophil# 0.23 X10^3/uL; Eosinophils% 3.3 % (0-5); Hematocrit 34.4 % (40-54); Hemoglobin 10.7 g/dL (13.0-16.5); Lymphocyte # 0.76 X10^3/ul (0.83-4.51); Lymphocyte % 10.9 % (19-41); Mean Corp Hgb Conc 31.1 g/dL (32-36); Mean Platelet Vol. 10.3 fl (6.2-12.0); Monocyte# 0.88 X10^3/uL; Monocyte% 12.6 % (0-10); NRBC Flagged by Analyzer 0 % (0-5); Neutrophil # 4.99 X10^3/uL (2.7-7.7); Neutrophil % 71.2 % (47-70); Platelet Count 193 K/mm3 (150-450); RBC Distribution Width SD 56.4 fl (35.1-43.9); Red Blood Count 3.34 M/mm3 (4.6-6.2)
[2022-05-14 06:16] LABS: Anion Gap 7 (5-15); BUN 102 mg/dL (7-18); BUN/Creat Ratio 38.3 RATIO (10-20); Calcium,Total 8.7 mg/dL (8.5-10.1); Chloride 106 mmol/L (98-107); Creatinine, Serum 2.66 mg/dL (0.70-1.30); EST Glomerular Filtration Rate 25 mL/min (>60); Est Glom Filt Rate - Afr Amer 30 mL/min (>60); Glucose 225 mg/dL (74-106); Potassium 4.9 mmol/L (3.5-5.1); Sodium Level 137 mmol/L (136-145)
[2022-05-14 06:25] LABS: Bedside Glucose 199 mg/dL (74-106)
[2022-05-14] MEDS: Losartan Potassium 100 MG Tablet PO (07:06)
[2022-05-14] MEDS: Spironolactone 25 MG Tablet PO (07:06)
[2022-05-14] MEDS: cycloBENZAPRine HCl 5 MG TABLET PO ×2 (07:06→17:24)
[2022-05-14] MEDS: Loratadine 10 MG Tablet PO (07:06)
[2022-05-14] MEDS: Finasteride 5 MG Tablet PO (07:07)
[2022-05-14] MEDS: APIXABAN 5 MG TABLET PO ×2 (07:07→17:24)
[2022-05-14] MEDS: Tolterodine Tartrate 2 MG CAP.SA PO (07:07)
[2022-05-14 07:08] VITALS: BP 141/65; PULSE 77
[2022-05-14] MEDS: Metoprolol Tartrate 100 MG Tablet PO (07:08)
[2022-05-14] MEDS: Ezetimibe 10 MG Tablet PO (07:09)
[2022-05-14] MEDS: NIFEdipine 60 MG Tablet PO (07:09)
[2022-05-14] MEDS: Allopurinol 300 MG Tablet PO (07:09)
[2022-05-14] MEDS: Gabapentin 100 MG Capsule PO ×3 (07:09→22:28)
[2022-05-14] MEDS: Senna/Docusate Sodium 1 Tablet 2 TABLET PO ×2 (07:10→17:24)
[2022-05-14] MEDS: Fluticasone 0.05% 1 SPRAY NASAL.SRY NASAL ×2 (07:11→17:25)
[2022-05-14] MEDS: Azelastine HCl NASAL.SRY 1 SPRAY NASAL ×2 (07:11→17:26)
--- NOTE | 2022-05-14 07:27 | NURSING ---
Written communication left for Dr. Paul review this AM during morning rounds regarding lab reported BUN 102, last BUN on 05/13/22 was 100, no nephrology consult from Acute side, requested in written communication if Dr. Paul would like nephrology consult at this time.
[2022-05-14] MEDS: Vitamin B Comp W-C Capsule 1 CAP PO (08:50)
[2022-05-14] MEDS: Multivitamins,Therapeutic Tablet 1 TABLET PO (08:50)
[2022-05-14] MEDS: Cholecalciferol (VIT D3) 25 MCG TABLET (1,000 UNITS) 50 MCG PO (08:50)
[2022-05-14] MEDS: Tuberculin,Purif.prot.deriv. 50 TU/ML Vial 0.1 ML ID (11:14)
[2022-05-14 11:31] LABS: Bedside Glucose 155 mg/dL (74-106)
[2022-05-14] MEDS: oxyCODONE 5 MG Tablet PO (12:01)
[2022-05-14] MEDS: Acetaminophen 500 MG Tablet 1000 MG PO (12:01)
--- NOTE | 2022-05-14 14:21 | WOUNDNOTE ---
EDDIE Lazcano had changed leg dressings today.
[2022-05-14 14:54] VITALS: BP 99/50; PULSE 60; RESP 18; TEMP 37.1; O2SAT 98
--- NOTE | 2022-05-14 15:08 | NURSING ---
Pt and family updated on staff member testing positive for covid.
[2022-05-14 15:31] VITALS: BP 106/72
[2022-05-14 16:56] LABS: Bedside Glucose 54 mg/dL (74-106)
[2022-05-14 17:10] LABS: Bedside Glucose 47 mg/dL (74-106)
[2022-05-14] MEDS: Glucagon 1 MG/ML Syringe IM (17:25)
[2022-05-14 17:41] LABS: Bedside Glucose 77 mg/dL (74-106)
[2022-05-14 18:32] VITALS: BP 120/51; PULSE 70
[2022-05-14 18:36] LABS: Bedside Glucose 120 mg/dL (74-106)
[2022-05-14 21:25] LABS: Bedside Glucose 98 mg/dL (74-106)
[2022-05-14] MEDS: Pravastatin 40 MG Tablet PO (22:28)
[2022-05-15 02:15] LABS: Bedside Glucose 124 mg/dL (74-106)
--- NOTE | 2022-05-15 03:33 | NURSING ---
Insulin held this HS d/t BS @ 3198 98. Given PB and crackers. Rechecked BS @ 5096 on 05/15/22 with result of BS 124.
[2022-05-15] MEDS: Azelastine HCl NASAL.SRY 1 SPRAY NASAL ×2 (05:47→17:31)
[2022-05-15] MEDS: Tolterodine Tartrate 2 MG CAP.SA PO (05:48)
[2022-05-15] MEDS: cycloBENZAPRine HCl 5 MG TABLET PO ×2 (05:48→17:33)
[2022-05-15] MEDS: Losartan Potassium 100 MG Tablet PO (05:48)
[2022-05-15] MEDS: Loratadine 10 MG Tablet PO (05:48)
[2022-05-15] MEDS: Allopurinol 300 MG Tablet PO (05:49)
[2022-05-15] MEDS: Gabapentin 100 MG Capsule PO ×3 (05:50→21:44)
[2022-05-15] MEDS: Senna/Docusate Sodium 1 Tablet 2 TABLET PO ×2 (05:50→17:34)
[2022-05-15] MEDS: APIXABAN 5 MG TABLET PO ×2 (05:51→17:33)
[2022-05-15] MEDS: Finasteride 5 MG Tablet PO (05:51)
[2022-05-15] MEDS: NIFEdipine 60 MG Tablet PO (05:51)
[2022-05-15] MEDS: Spironolactone 25 MG Tablet PO (05:51)
[2022-05-15] MEDS: Ezetimibe 10 MG Tablet PO (05:51)
[2022-05-15 05:52] VITALS: BP 136/49; PULSE 84
[2022-05-15] MEDS: Fluticasone 0.05% 1 SPRAY NASAL.SRY NASAL ×2 (05:52→17:32)
[2022-05-15] MEDS: Metoprolol Tartrate 100 MG Tablet PO (05:52)
[2022-05-15 06:21] LABS: Bedside Glucose 122 mg/dL (74-106)
[2022-05-15 06:22] LABS: Anion Gap 7 (5-15); BUN 106 mg/dL (7-18); BUN/Creat Ratio 42.2 RATIO (10-20); Calcium,Total 8.8 mg/dL (8.5-10.1); Chloride 107 mmol/L (98-107); Creatinine, Serum 2.51 mg/dL (0.70-1.30); EST Glomerular Filtration Rate 27 mL/min (>60); Est Glom Filt Rate - Afr Amer 32 mL/min (>60); Estimated Creatinine Clearance 22.68 ml/min; Glucose 122 mg/dL (74-106); Potassium 4.5 mmol/L (3.5-5.1); Sodium Level 138 mmol/L (136-145)
[2022-05-15] MEDS: Vitamin B Comp W-C Capsule 1 CAP PO (08:02)
[2022-05-15] MEDS: Multivitamins,Therapeutic Tablet 1 TABLET PO (08:02)
[2022-05-15] MEDS: Cholecalciferol (VIT D3) 25 MCG TABLET (1,000 UNITS) 50 MCG PO (08:03)
[2022-05-15] MEDS: Insulin Lispro 100 UNIT/ML INSULN.PEN 10 UNIT SC ×4 (08:03→21:44)
[2022-05-15 11:56] LABS: Bedside Glucose 140 mg/dL (74-106)
[2022-05-15] MEDS: oxyCODONE 5 MG Tablet PO (13:27)
[2022-05-15] MEDS: Acetaminophen 500 MG Tablet 1000 MG PO (13:28)
--- NOTE | 2022-05-15 13:59 | ONC.PHONE ---
wound photo: left lower leg
--- NOTE | 2022-05-15 14:00 | WOUNDNOTE ---
wound photo: right lower leg
--- NOTE | 2022-05-15 14:00 | WOUNDNOTE ---
wound photo: right leg
--- NOTE | 2022-05-15 14:01 | WOUNDNOTE ---
wound photo: right leg
--- NOTE | 2022-05-15 14:02 | WOUNDNOTE ---
wound photo: right posterolateral lower leg
[2022-05-15 15:18] VITALS: BP 105/62; PULSE 74; RESP 20; TEMP 35.9; O2SAT 95
[2022-05-15 16:01] LABS: Bedside Glucose 142 mg/dL (74-106)
--- NOTE | 2022-05-15 17:08 | CASEMGMT ---
Social Work Met with patient for initial assessment. Introduced self and role. Pt confirmed contacts. Discussed code status and MOLST form. Pt wishes to be DNR-CCA, no intubation. Notified nursing. MOLST communicated to , placed in chart. Explained [facility] insurance with NRD 05/16 and continued stay is not guaranteed. The goal is for pt to return home at [facility]. Pt is new on O2, wraps on legs for wounds. Pt stated his son is getting him a new shower chair so he can feel safe sitting and shower at DC. Pt does have a ramp and main floor set up. All children are supported but work full-time; are self-employed and work various hours. SW to continue to follow for DC planning. Alexa Baum, SOCIAL MEDIA DEVELOPER FELT HAT INSPECTOR AND PACKER
[2022-05-15 18:31] VITALS: BP 108/43; PULSE 75
[2022-05-15 21:06] LABS: Bedside Glucose 149 mg/dL (74-106)
[2022-05-15] MEDS: Pravastatin 40 MG Tablet PO (21:44)
[2022-05-15 22:00] VITALS: PULSE 73; RESP 20; O2SAT 95
--- NOTE | 2022-05-15 22:10 | NURSING ---
Patient wheeled into restroom x2 assist. Patient used grab bars and staff assistance. When patient stood, moderate amount of blood dripping from rectum area. Once patient used toilet and assisted back up, this nurse assessed rectal area. No open areas or external hemorrhoids noted. Copious amount of blood in toilet. Dr. Paul paged. New order for CBC now, CBC tomorrow morning (05/15/22). Hold [employer] x5 days.
[2022-05-15 22:17] VITALS: BP 140/83; PULSE 77
--- NOTE | 2022-05-15 22:52 | NURSING ---
Lab on unit to draw patients labs
[2022-05-15 23:37] LABS: Absolute Lymphocyte Count 0.74 X10^3/uL (0.83-4.51); Absolute Neutrophil Count 4.4 X10^3/uL (2.0-7.7); Basophil# 0.05 X10^3/uL; Basophil% 0.8 % (0-1); Eosinophil# 0.29 X10^3/uL; Eosinophils% 4.5 % (0-5); Lymphocyte # 0.74 X10^3/ul (0.83-4.51); Lymphocyte % 11.6 % (19-41); Mean Corp Hgb Conc 31.3 g/dL (32-36); Mean Corpuscular Hgb 32.1 pg (27.0-32.0); Mean Corpuscular Volume 102.6 fL (80-94); Mean Platelet Vol. 10.5 fl (6.2-12.0); Monocyte% 12.5 % (0-10); NRBC Flagged by Analyzer 0 % (0-5); Neutrophil # 4.41 X10^3/uL (2.7-7.7); Neutrophil % 69.2 % (47-70); Platelet Count 199 K/mm3 (150-450); RBC Distribution Width CV 15.4 % (11.6-14.6); RBC Distribution Width SD 58.1 fl (35.1-43.9); Red Blood Count 3.12 M/mm3 (4.6-6.2); White Blood Count 6.4 K/mm3 (4.4-11.0)
--- NOTE | 2022-05-16 02:10 | NURSING ---
Addendum entered by Cary Laurent 05/16/22 02:45: Collaborated with JONATHON Rider and decided to send patient to ER d/t symptoms and amount of blood loss. 02:31 hours--Report called to JONATHON Serrano in ER. Instructed to take patient to room #1. 02:37 hours--Notified Maynor (son) of patient being transferred to ER for further evaluation. 02:40 hours--Patient transported to ER via cot x2. Original Note: Patient assisted to restroom at this time. 3rd episode of copious amounts of blood coming from rectum. Color is darker red this episode, with odor. Patient did state he felt a little dizzy. Patient cleaned up and assisted back to recliner. Vitals obtained. BP: 100/39 (left arm) 116/45 (right arm manual); HR: 79; R: 18; SpO2: 93% on 2 LPM via nasal cannula. Patient's color also becoming more pale and complaining of tiredness.
[2022-05-16 02:30] VITALS: BP 116/45; PULSE 79; RESP 18; O2SAT 93
--- NOTE | 2022-05-16 07:49 | DS.PCM_ITS ---
Providers Date of Admission: 05/13/22 Primary Care Physician: Dr. 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 Routine Comment: Reason for Consult:: leg wounds Reason For Visit: HYPOXIA, PNEUMONIA, CHF Diagnosis Discharge Diagnosis (1) Debility: Status: Inactive Code(s): R53.81 - Other malaise (2) Acute respiratory failure with hypoxia: Status: Resolved Code(s): J96.01 - Acute respiratory failure with hypoxia (3) Atrial fibrillation, new onset: Status: Inactive Code(s): I48.91 - Unspecified atrial fibrillation (4) Hypoglycemia: Status: Resolved Code(s): E16.2 - Hypoglycemia, unspecified (5) Acute encephalopathy: Status: Resolved Code(s): G93.40 - Encephalopathy, unspecified (6) Type 2 diabetes mellitus: Status: Inactive Code(s): E11.9 - Type 2 diabetes mellitus without complications (7) Hypertension: Status: Inactive Code(s): I10 - Essential (primary) hypertension (8) Hyperlipidemia: Status: Inactive Code(s): E78.5 - Hyperlipidemia, unspecified (9) Chronic back pain: Status: Inactive Code(s): M54.9 - Dorsalgia, unspecified; G89.29 - Other chronic pain (10) Acute kidney injury superimposed on CKD: Status: Resolved Code(s): N17.9 - Acute kidney failure, unspecified; N18.9 - Chronic kidney disease, unspecified (11) Pneumonia: Status: Resolved Code(s): J18.9 - Pneumonia, unspecified organism (12) Heart failure with preserved ejection fraction: Status: Inactive Code(s): I50.30 - Unspecified diastolic (congestive) heart failure (13) Chronic obstructive pulmonary disease: Status: Inactive Code(s): J44.9 - Chronic obstructive pulmonary disease, unspecified (14) Gout: Status: Inactive Code(s): M10.9 - Gout, unspecified (15) Muscle spasm: Status: Resolved Code(s): M62.838 - Other muscle spasm Plan 76 year old male with below past medical history hospitalized for acute encephalopathy secondary to hypoglycemia, complicated by pneumonia, heart failure with preserved ejection fraction, and acute kidney injury on underlying chronic kidney disease, admitted to TCU with debility, here for rehabilitation, strengthening, prior to discharge home alone. * Debility - PT/OT. * Pain - Tylenol 1000mg q6h prn pain (1-5), Oxycodone 5mg q4h prn pain (6-10). * Bowel - senna/colace 2 tablets bid, Dulcolax 10mg daily prn. * Adult immunization - Administer pneumonia vaccine, covid19 vaccine, flu vaccine. * DVT prophylaxis - Not necessary, already on eliquis. * COPD - Albuterol 2 puffs q4h prn. * Gout - Allopurinol 300mg daily. * Atrial fibrillation - Metoprolol 100mg bid, Nifedipine 60mg daily, Eliquis 5mg bid. * Allergic rhinitis - Astelin 1 spray nasl bid, Flonase 1 spray nasal bid, Loratadine 10mg daily. * Muscle spasm - Flexeril 5mg po bid. * Hyperlipidemia - Zetia 10mg daily. * BPH - Finasteride 5mg daily. * Acute on chronic diastolic heart failure - Metoprolol 100mg bid, Losartan 100mg daily, Aldactone 25mg, Lasix 60mg daily to start 05/16/2022. * Neuropathic pain - Gabapentin 100mg tid. * Diabetes Mellitus II - Soliqua 55 units daily, Humalog 30 units 4x/day. * Nutrition - MVI daily. * Hyperlipidemia - Pravastatin 40mg qhs. * Overactive bladder - Detrol 2mg daily. * Vitamin B deficiency - Vitamin B complex 1 tablet daily * Vitamin D deficiency - D3 50mcg daily. Medications at Discharge Home Medications allopurinol 300 mg tablet 300 mg PO DAILY gout 01/04/15 aspirin 81 mg chewable tablet 81 mg PO DAILY@0800 heart health 01/04/15 metoprolol tartrate 50 mg tablet 100 mg PO BID heart/bloodpressure 01/04/15 vitamin B complex 1 ea PO DAILY supplement 10/24/16 cyclobenzaprine 10 mg tablet 5 mg PO BID muscle spasm 08/13/18 oxycodone-acetaminophen 5 mg-325 mg tablet 1 - 2 tab PO Q6H PRN PRN Pain 02/12/19 albuterol 90 mcg/actuation aerosol inhaler 2 mcg inhalation Q4H PRN PRN Shortness Of Breath Or Wheezing 05/08/22 azelastine-fluticasone 137 mcg-50 mcg/spray nasal spray 1 spray intranasal BID allergies 05/08/22 cetirizine 10 mg tablet 10 mg PO DAILY allergies 05/08/22 cholecalciferol (vitamin D3) 50 mcg (2,000 unit) capsule (Vitamin D3) 50 mcg PO DAILY suppliment 05/08/22 ezetimibe 10 mg tablet (Zetia) 10 mg PO DAILY cholesterol 05/08/22 gabapentin 100 mg tablet 100 mg PO TID neuropathy 05/08/22 insulin aspart U-100 100 unit/mL (3 mL) subcutaneous pen (Novolog Flexpen U-100 Insulin aspart) 10 unit subcut 4X/DAY diabetes 05/08/22 insulin glargine 100 unit-lixisenatide 33 mcg/mL subcutaneous pen (Soliqua 100/33) 55 unit subcut DAILY diabetes 05/08/22 losartan 100 mg tablet 100 mg PO DAILY heart/blood pressure 05/08/22 multivitamin 1 cap PO DAILY suppliement 05/08/22 nifedipine 60 mg tablet,extended release 24 hr 60 mg PO DAILY heart 05/08/22 oxybutynin chloride 10 mg tablet,extended release 24 hr (Ditropan XL) 10 mg PO DAILY bladder control 05/08/22 pravastatin 40 mg tablet 40 mg PO QHS cholesterol 05/08/22 spironolactone 25 mg tablet 25 mg PO DAILY diuretic 05/08/22 torsemide 20 mg tablet 30 mg PO DAILY water pill 05/08/22 apixaban 5 mg tablet (Eliquis) 5 mg PO BID blood thinner 05/13/22 Hospital Course Operations None Procedures None Summary of Care Provided Minutes Spent on Discharge: 30 Hospital Course: 76 year old male with below past medical history hospitalized for acute encephalopathy secondary to hypoglycemia, complicated by pneumonia, heart failure with preserved ejection fraction, and acute kidney injury on underlying chronic kidney disease, admitted to TCU with debility, here for rehabilitation, strengthening, prior to discharge home alone. 05/15/2022 Resident mildly hypotensive, blood pressure medication decreased. 05/15/2022 Resident had bleeding from rectum. Hemoglobin decreased. Resident complained of dizziness, rectal bleeding continued. Resident recently started on Eliquis for new onset atrial fibrillation. Discharge to [facility] Emergency Department 05/16/2022 for evaluation, admission to hospital. Weight / BMI Weight Weight: 163.35 kg Body Mass Index (BMI) 55.5 ABG / Lab / Microbiology Data Result Diagrams: 05/15/22 22:52 05/15/22 05:11 Laboratory: Laboratory Results - last 24 hr 05/15/22 11:49: POC Glucose 140 H 05/15/22 15:49: POC Glucose 142 H 05/15/22 21:01: POC Glucose 149 H 05/15/22 22:52: WBC 6.4, RBC 3.12 L, Hgb 10.0 L, Hct 32.0 L, MCV 102.6 H, MCH 32.1 H, MCHC 31.3 L, RDW Std Deviation 58.1 H, RDW Coeff of Petty 15.4 H, Plt Count 199, MPV 10.5, Immature Gran % (Auto) 1.400 H, Neut % (Auto) 69.2, Lymph % (Auto) 11.6 L, [place] % (Auto) 12.5 H, Eos % (Auto) 4.5, Baso % (Auto) 0.8, Absolute Neuts (auto) 4.4, Absolute Lymphs (auto) 0.74 L, Nucleated RBC % 0 D/C Instructions Discharge Diet: No restrictions Discharge Activity: Return to Normal Activity, May Shower and Use Walker Weight Bearing Status: Weight bearing as tolerated Call your doctor if you observe: Fever of 101 or Higher, Inability to urinate, Inability to have a bowel movement, Shortness of breath, Dizziness, Fainting spells, Swelling in the ankles, Chest pain and Uncontrolled pain Additional Instructions: Discharge to [facility] Emergency Department 05/16/2022 for evaluation, admission to hospital. Meaningful Use Info Meaningful Use Diagnoses (Choose all that apply): None applicable Discharge Plan Admission Admit Date/Time: 05/13/22 18:15 Primary Reason for Your Visit: Debility. Attending Provider: Michael Paul Chi Primary Care Provider: Alvarado Sam Instructions Additional Instructions / Restrictions: Discharge to [facility] Emergency Department 05/16/2022 for evaluation, admission to hospital. Discharge Orders/Prescriptions Prescriptions: No Action metoprolol tartrate 50 MG tablet 100 mg PO BID aspirin 81 MG tablet,chewable 81 mg PO DAILY@0800 allopurinol 300 MG tablet 300 mg PO DAILY vitamin B complex 1 EACH capsule 1 ea PO DAILY cyclobenzaprine 10 MG tablet 5 mg PO BID oxycodone-acetaminophen 1 EACH tablet 1 - 2 tab PO Q6H PRN PRN (Reason: Pain) Label Comments: take 1 tablet by mouth twice a day if needed for pain torsemide 20 mg Tablet 30 mg PO DAILY Hold Instructions: Resume on 05/15/22. cetirizine 10 mg Tablet 10 mg PO DAILY oxybutynin chloride [Ditropan XL] 10 mg Tablet Extended Release 24hr 10 mg PO DAILY pravastatin 40 mg Tablet 40 mg PO QHS spironolactone 25 mg Tablet 25 mg PO DAILY Hold Instructions: Resume on 05/15/22. nifedipine 60 mg Tablet Extended Release 24hr 60 mg PO DAILY albuterol 90 mcg/actuation Aerosol 2 mcg INHALATION Q4H PRN PRN (Reason: Shortness Of Breath Or Wheezing) Rx Instructions: 2 puffs q4hr prn losartan 100 mg Tablet 100 mg PO DAILY multivitamin Capsule 1 cap PO DAILY ezetimibe [Zetia] 10 mg Tablet 10 mg PO DAILY insulin aspart U-100 [Novolog Flexpen U-100 Insulin] 100 unit/mL (3 mL) Insulin Pen 10 unit SUBCUT 4X/DAY gabapentin 100 mg Tablet 100 mg PO TID cholecalciferol (vitamin D3) [Vitamin D3] 50 mcg (2,000 unit) Capsule 50 mcg PO DAILY azelastine-fluticasone 137-50 mcg/spray [place],Non-Aerosol 1 spray INTRANASAL BID Rx Instructions: administer into each nostril Soliqua 100/33 100 unit-33 mcg/mL Insulin Pen 55 unit SUBCUT DAILY Eliquis 5 mg tablet 5 mg PO BID Referrals / Follow Up: Alvarado Sam MD [Primary Care Provider] - Disposition Disposition (needs filled in before D/C Order can be placed): [facility]
[2022-05-16 08:00] LABS: Bedside Glucose 139 mg/dL (74-106)
--- NOTE | 2022-05-19 11:18 | NURSING ---
Director Nurses' Registry Note: MDS section F complete.
--- NOTE | 2022-05-22 14:27 | MDS.RN ---
Information for the mds was obtained from review of the clincal record, interview of resident, staff, and direct observation of resident's care.
== END 2022-05-16 02:40 | disposition short-term general hospital (02) | DRG 194 ==
PROVIDERS: Admitting Provider Family Medicine Geriatric Medicine; PCP Family Medicine; Visit Provider Family Medicine Geriatric Medicine
DX: J18.9 Pneumonia, unspecified organism (principal); I13.0 Hypertensive heart and chronic kidney disease with heart failure and stage 1 through stage 4 chronic kidney disease, or unspecified chronic kidney disease; I50.32 Chronic diastolic (congestive) heart failure; J44.0 Chronic obstructive pulmonary disease with (acute) lower respiratory infection; K62.5 Hemorrhage of anus and rectum; E11.649 Type 2 diabetes mellitus with hypoglycemia without coma; E11.22 Type 2 diabetes mellitus with diabetic chronic kidney disease; I48.91 Unspecified atrial fibrillation; E11.40 Type 2 diabetes mellitus with diabetic neuropathy, unspecified; Z79.4 Long term (current) use of insulin; M62.838 Other muscle spasm; J30.9 Allergic rhinitis, unspecified; E55.9 Vitamin D deficiency, unspecified; E78.5 Hyperlipidemia, unspecified; N18.9 Chronic kidney disease, unspecified; M10.9 Gout, unspecified; M54.9 Dorsalgia, unspecified; G89.29 Other chronic pain; Z79.82 Long term (current) use of aspirin; Z87.891 Personal history of nicotine dependence; N32.81 Overactive bladder; Z79.01 Long term (current) use of anticoagulants; Z79.899 Other long term (current) drug therapy
CPT/HCPCS: 36415; 80048; 82962; 85025; 97110; 97116; 97162; 97166; 97530; 97802; J1610

== ENCOUNTER 2022-05-16 02:42 | Inpatient (IN) | payer MEDICARE, SELFPAY ==
[2022-05-16] VITALS (29 sets, daily range): BP systolic 75–138; BP diastolic 41–92; PULSE 73–105; RESP 12–22; TEMP 36.1–37.1; O2SAT 93–100; BMI 54.8; BMI 57.3
--- NOTE | 2022-05-16 03:05 | EKG12_ITS ---
Test Reason : DYSRHYTHMIA Blood Pressure : / mmHG Vent. Rate : 075 BPM Atrial Rate : 074 BPM P-R Int : 000 ms QRS Dur : 174 ms QT Int : 442 ms P-R-T Axes : 000 081 -05 degrees QTc Int : 493 ms Atrial fibrillation Right bundle branch block Abnormal ECG Confirmed by FARNKO AG, RJ ([id number]), editorial project manager SAMANTA LEE ([id number]) on 05/20/2022 8:00:46 AM Referred By: DARIAN Confirmed By:RJ ABDUL MD
[2022-05-16 03:32] LABS: Absolute Neutrophil Count 5.5 X10^3/uL (2.0-7.7); Basophil# 0.06 X10^3/uL; Basophil% 0.7 % (0-1); Eosinophil# 0.34 X10^3/uL; Eosinophils% 4.1 % (0-5); Hematocrit 31.7 % (40-54); Hemoglobin 9.7 g/dL (13.0-16.5); Lymphocyte % 14.6 % (19-41); Mean Corp Hgb Conc 30.6 g/dL (32-36); Mean Corpuscular Volume 104.6 fL (80-94); Mean Platelet Vol. 10.7 fl (6.2-12.0); Monocyte# 1.04 X10^3/uL; Monocyte% 12.6 % (0-10); NRBC Flagged by Analyzer 0 % (0-5); Neutrophil # 5.53 X10^3/uL (2.7-7.7); Neutrophil % 67.2 % (47-70); Platelet Count 226 K/mm3 (150-450); RBC Distribution Width CV 15.3 % (11.6-14.6); RBC Distribution Width SD 58.3 fl (35.1-43.9); Red Blood Count 3.03 M/mm3 (4.6-6.2); White Blood Count 8.2 K/mm3 (4.4-11.0)
[2022-05-16 03:52] LABS: International Normalized Ratio 1.6; Prothrombin Time (Protime)PT. 18.7 SECONDS (11.7-14.9)
[2022-05-16 03:53] LABS: Partial Thromboplast Time 40.3 Seconds (24.1-36.2)
[2022-05-16 04:00] LABS: Lactic Acid 1.7 mmol/L (0.4-1.9)
[2022-05-16 04:04] LABS: AST(SGOT) 26 U/L (15-37); Alanine Aminotransfer ALT/SGPT 47 U/L (16-61); Albumin, Serum 2.5 g/dL (3.2-5.0); Alkaline Phosphatase 112 U/L (45-117); Anion Gap 6 (5-15); BUN 105 mg/dL (7-18); BUN/Creat Ratio 37.9 RATIO (10-20); Bilirubin, Direct 0.19 mg/dL (0.00-0.30); Calcium,Total 8.5 mg/dL (8.5-10.1); Chloride 108 mmol/L (98-107); Creatinine, Serum 2.77 mg/dL (0.70-1.30); EST Glomerular Filtration Rate 24 mL/min (>60); Est Glom Filt Rate - Afr Amer 29 mL/min (>60); Estimated Creatinine Clearance 20.55 ml/min; Globulin 3.6 g/dL (2.2-4.2); Glucose 139 mg/dL (74-106); Potassium 5.5 mmol/L (3.5-5.1); Protein, Total 6.1 g/dL (6.4-8.2); Sodium Level 138 mmol/L (136-145); Troponin-I HS 28 pg/mL (3.0-78.0)
--- NOTE | 2022-05-16 04:10 | CT_ITS ---
EXAM: CT ANGIOGRAPHY ABDOMEN AND PELVIS WITHOUT AND WITH INTRAVENOUS CONTRAST CLINICAL INDICATION: GI BLEED TECHNIQUE: Helically acquired angiography images were obtained of the abdomen and pelvis without and with intravenous contrast. This CT exam was performed using one or more of the following dose reduction techniques: automated exposure control, adjustment of the mA and/or kV according to patient size, and/or use of iterative reconstruction technique. This report was created using Gengo report generation technology. MIP reconstructed images were created and reviewed. RADIATION DOSE: CTDIvol = 33.46 mGy, DLP = 1386.75 mGy-cmContrast: IV 100mL Isovue-370 COMPARISON: Unenhanced exam August 13, 2018. There was unenhanced exam November 16, 2016. No prior enhanced exam provided. FINDINGS: VASCULATURE: AORTA: No acute findings. Normal caliber abdominal aorta. No dissection. CELIAC TRUNK AND MESENTERIC ARTERIES: Calcification and at least mild stenosis at the origin. No occlusion.. No dissection. RENAL ARTERIES: Calcification of the origins and at least moderate proximal renal artery stenosis. No dissection. ILIAC ARTERIES: No acute findings. No occlusion or significant stenosis. No dissection. PORTAL VEINS: Not well opacified on arterial phase exam but no obvious evidence of portal or mesenteric venous thrombosis. LOWER THORAX: Bilateral pleural effusions, mild to moderate, and dependent lung base consolidation, greater on the left. Mild multichamber cardiomegaly, not fully included. ABDOMEN: LIVER: There is a small enhancing nodule adjacent to the proximal portal vessels in the periportal liver, measuring roughly 1.3 cm, indeterminate. GALLBLADDER AND BILE DUCTS: The gallbladder has been removed. Mildly dilated common duct measuring 1.4 cm proximally and tapering distally is without obvious acute abnormality. PANCREAS: Atrophic pancreas. No focal cystic or solid mass. SPLEEN: Unremarkable. Normal size without focal cystic or solid mass. ADRENALS: Unremarkable. No nodules. KIDNEYS AND URETERS: Multiple and bilateral renal cysts. The patient had prominent hydronephrosis and urinary retention on the prior exam in 2017 and a few small suspected renal cyst on prior exam in 2015. Normal renal size and position. STOMACH AND BOWEL: Mild gas in the stomach. No suspicious small bowel dilatation. Moderate stool in the right colon and proximal transverse colon. Moderate fluid in the mid to distal transverse colon to the rectum. No discrete focus of active GI bleeding is demonstrated.. No focal inflammatory change. PELVIS: APPENDIX: No evidence of acute appendicitis. BLADDER: Unremarkable. REPRODUCTIVE: Unremarkable as visualized. No mass. ABDOMEN and PELVIS: INTRAPERITONEAL SPACE: Unremarkable. No ascites or other fluid collection. No free air. BONES/JOINTS: Degenerative spine changes. SOFT TISSUES: Unremarkable. No discrete abdominal or pelvic wall hernia. LYMPH NODES: Unremarkable. No enlarged lymph nodes. CT/CT ANGIO ABD&PEL W/O&W/DYE IMPRESSION: No active GI bleeding is evident. Moderate fluid in the mid to distal colon and moderate stool in most of the proximal half of the colon. Nonvisualized appendix. Cholecystectomy. Indeterminate small enhancing nodule at the periportal region of the liver, uncertain etiology and significance. Multiple and bilateral presumed renal cysts, no obvious complex mass. Cardiomegaly and bilateral pleural effusions and lung base consolidation. Atherosclerotic changes with at least moderate origin stenosis at multiple vessels. Electronically Signed: Audra Guevara MD at 5:27 EDT ,
--- NOTE | 2022-05-16 06:08 | EDS_ITS ---
HPI History of Present Illness Chief Complaint: GI Bleed Narrative Narrative: Patient is a 76-year-old male who was recently admitted to the hospital secondary to new onset atrial fibrillation. He was started on Eliquis secondary to this. He also has history of hyperlipidemia hypertension diabetes and heart failure. Patient has been doing well but this evening around 10 or 11 PM began with bloody bowel movements. He states that other than feeling the urge to defecate he does not have abdominal pain chest pain headache or shortness of breath. The patient was in the extended care facility and they reported that his blood pressure was beginning to reduce and he been having recurrent bouts of the bloody stool and with this they sent him to the ER for evaluation. The patient states he has been going approximately every hour and denies any past medical history of this [facility] Medical History COPD (chronic obstructive pulmonary disease) Diabetes Hypertension Home Medications allopurinol 300 mg tablet 300 mg PO DAILY gout 01/04/15 [History Last Taken 11/16/16 06:00] aspirin 81 mg chewable tablet 81 mg PO DAILY@0800 heart health 01/04/15 [History Last Taken 11/16/16 06:00] metoprolol tartrate 50 mg tablet 100 mg PO BID heart/bloodpressure 01/04/15 [History Last Taken 12/08/16 06:30] vitamin B complex 1 ea PO DAILY supplement 10/24/16 [History Last Taken 11/16/16 06:00] cyclobenzaprine 10 mg tablet 5 mg PO BID muscle spasm 08/13/18 [History Last Taken Unknown] oxycodone-acetaminophen 5 mg-325 mg tablet 1 - 2 tab PO Q6H PRN PRN Pain 02/12/19 [History Last Taken Unknown] albuterol 90 mcg/actuation aerosol inhaler 2 mcg inhalation Q4H PRN PRN Shortness Of Breath Or Wheezing 05/08/22 [History Last Taken Unknown] azelastine-fluticasone 137 mcg-50 mcg/spray nasal spray 1 spray intranasal BID allergies 05/08/22 [History Last Taken Unknown] cetirizine 10 mg tablet 10 mg PO DAILY allergies 05/08/22 [History Last Taken Unknown] cholecalciferol (vitamin D3) 50 mcg (2,000 unit) capsule (Vitamin D3) 50 mcg PO DAILY suppliment 05/08/22 [History Last Taken Unknown] ezetimibe 10 mg tablet (Zetia) 10 mg PO DAILY cholesterol 05/08/22 [History Last Taken Unknown] gabapentin 100 mg tablet 100 mg PO TID neuropathy 05/08/22 [History Last Taken Unknown] insulin aspart U-100 100 unit/mL (3 mL) subcutaneous pen (Novolog Flexpen U-100 Insulin aspart) 10 unit subcut 4X/DAY diabetes 05/08/22 [History Last Taken Unknown] insulin glargine 100 unit-lixisenatide 33 mcg/mL subcutaneous pen (Soliqua 100/33) 55 unit subcut DAILY diabetes 05/08/22 [History Last Taken Unknown] losartan 100 mg tablet 100 mg PO DAILY heart/blood pressure 05/08/22 [History Last Taken Unknown] multivitamin 1 cap PO DAILY suppliement 05/08/22 [History Last Taken Unknown] nifedipine 60 mg tablet,extended release 24 hr 60 mg PO DAILY heart 05/08/22 [History Last Taken Unknown] oxybutynin chloride 10 mg tablet,extended release 24 hr (Ditropan XL) 10 mg PO DAILY bladder control 05/08/22 [History Last Taken Unknown] pravastatin 40 mg tablet 40 mg PO QHS cholesterol 05/08/22 [History Last Taken Unknown] spironolactone 25 mg tablet 25 mg PO DAILY diuretic 05/08/22 [History Last Taken Unknown] torsemide 20 mg tablet 30 mg PO DAILY water pill 05/08/22 [History Last Taken Unknown] apixaban 5 mg tablet (Eliquis) 5 mg PO BID blood thinner 05/13/22 [History Last Taken Unknown] Allergy/AdvReac Type Severity Reaction Status Date / Time grass pollen Allergy Hives Verified 05/16/22 02:49 Latex, Natural Rubber Allergy Unknown Verified 05/16/22 02:49 Social History (Updated 05/13/22 @ 21:[address] Michael Paul MD) household members: none Smoking Status: Former smoker alcohol intake: never substance use type: does not use ROS ROS ED Constitutional Constitutional ED: Denies chills or fever(s) ENT ENT ED: Denies sore throat Cardiovascular Cardiovascular: Denies chest pain or racing heartbeat Respiratory/Chest Respiratory/Chest: Denies cough or dyspnea Gastrointestinal Gastrointestinal: Reports melena; Denies abdominal pain, diarrhea, nausea or vomiting Genitourinary Genitourinary ED: Denies dysuria Musculoskeletal Musculoskeletal: Denies myalgias Integumentary Denies rash Neurologic Neurologic: Denies headache(s) Hematologic/Lymphatic Hematologic/Lymphatic: Reports easy bleeding and easy bruising EXAM Physical Exam Const Vital Signs: 05/16/22 02:47 05/16/22 02:43 05/16/22 03:40 Temperature 98.1 F Temperature Source Temporal Pulse Rate 90 78 Respiratory Rate 16 12 Blood Pressure 75/59 L 93/54 L Blood Pressure Mean 64 67 Blood Pressure Source Blood Pressure Position Blood Pressure Location Pulse Ox 96 100 Oxygen Delivery Method Nasal Cannula Nasal Cannula Oxygen Flow Rate (L/min) 3 05/16/22 04:23 05/16/22 05:26 05/16/22 05:26 Temperature Temperature Source Pulse Rate 86 82 Respiratory Rate 16 14 Blood Pressure 76/46 L 102/47 L Blood Pressure Mean 56 65 Blood Pressure Source Blood Pressure Position Blood Pressure Location Pulse Ox 98 100 100 Oxygen Delivery Method Nasal Cannula Nasal Cannula Nasal Cannula Oxygen Flow Rate (L/min) 4 4 05/16/22 05:23 05/16/22 05:38 Temperature 97.9 F 97.8 F Temperature Source Oral Oral Pulse Rate 87 81 Respiratory Rate 16 12 Blood Pressure 102/47 L 121/76 H Blood Pressure Mean 65 91 Blood Pressure Source Monitor Monitor Blood Pressure Position Semi-Fowlers Semi-Fowlers Blood Pressure Location Left Arm Pulse Ox 100 100 Oxygen Delivery Method Nasal Cannula Nasal Cannula Oxygen Flow Rate (L/min) 4 4 Positive well nourished, well developed and obese General Appearance ED: well developed Nutritional Appearance: obese HEENT Reports moist mucous membranes Eyes PERRL and EOMs intact bilaterally Neck supple and no JVD Resp normal respiratory effort and clear to auscultation bilaterally Resp Narrative: Breath sounds are diminished throughout but overall clear to auscultation with no signs of distress Cardio regular rate Rate: other Other Details: Patient has a irregularly irregular rhythm with a rate consistent with a recent diagnosis of A. fib GI normal to inspection, nondistended, normoactive bowel sounds, non-tender and non-distended Auscultation: normoactive bowel sounds Palpation: soft Narrative: No external hemorrhoid or fissure noted there is dark red blood at the opening of the rectum without active discharge or bleeding Extremity Extremity Narrative: Patient has peripheral edema to the bilateral lower extremities consistent with his history of congestive heart failure. He has a chronic changes to his left elbow from previous surgery. Neuro oriented x3 and CN's II-XII intact bilaterally Sensorium / Orientation: alert Psych mental status grossly normal Skin no rashes or lesions noted MDM MDM MDM Narrative Medical decision making narrative: Patient arrived to the ER hypotensive at 75/59 but otherwise he is awake alert with no abdominal pain. He is currently on Eliquis secondary to his A. fib which is most likely the cause of his bleeding. His hemoglobin has not drastically dropped it was 13.5 with the initial admission on May 07 and now is 9.7. However with the bright red blood per rectum and his hypotension he will be given 2 units of blood. I discussed the case with Dr. Acosta/IMANI on-call. He recommends a CTA at this time to see if there is an active source of bleeding and he also recommends Kcentra because of his anticoagulation on Eliquis. The patient was given a small amount of fluid 500 mL as well as his 2 units of blood and Kcentra and following this his blood pressure did normalize at approximate 120/75. However despite this he still having intermittent bouts of bright red blood per rectum and therefore will need admitted the hospital for further care. The case was discussed with medicine who agrees to accept the patient Lab Data Attestation: I reviewed the patient's lab results. Labs: Laboratory Results - last 24 hr 05/16/22 05/16/22 05/16/22 03:05 03:05 03:05 WBC 8.2 RBC 3.03 L Hgb 9.7 L Hct 31.7 L MCV 104.6 H MCH 32.0 MCHC 30.6 L RDW Std Deviation 58.3 H RDW Coeff of Petty 15.3 H Plt Count 226 MPV 10.7 Immature Gran % (Auto) 0.800 Neut % (Auto) 67.2 Lymph % (Auto) 14.6 L Titus % (Auto) 12.6 H Eos % (Auto) 4.1 Baso % (Auto) 0.7 Absolute Neuts (auto) 5.5 Absolute Lymphs (auto) 1.20 Nucleated RBC % 0 PT 18.7 H INR 1.6 APTT 40.3 H Sodium 138 Potassium 5.5 H Chloride 108 H Carbon Dioxide 24.0 Anion Gap 6 BUN 105 H* Creatinine 2.77 H Estim Creat Clear Calc 20.55 Est GFR (MDRD) Af Amer 29 L Est GFR (MDRD) Non-Af 24 L BUN/Creatinine Ratio 37.9 H Glucose 139 H Lactic Acid Calcium 8.5 Total Bilirubin 0.60 Direct Bilirubin 0.19 AST 26 ALT 47 Alkaline Phosphatase 112 Troponin I High Sens 28 Total Protein 6.1 L Albumin 2.5 L Globulin 3.6 Blood Type Antibody Screen Crossmatch 05/16/22 05/16/22 03:05 03:05 WBC RBC Hgb Hct MCV MCH MCHC RDW Std Deviation RDW Coeff of Petty Plt Count MPV Immature Gran % (Auto) Neut % (Auto) Lymph % (Auto) Titus % (Auto) Eos % (Auto) Baso % (Auto) Absolute Neuts (auto) Absolute Lymphs (auto) Nucleated RBC % PT INR APTT Sodium Potassium Chloride Carbon Dioxide Anion Gap BUN Creatinine Estim Creat Clear Calc Est GFR (MDRD) Af Amer Est GFR (MDRD) Non-Af BUN/Creatinine Ratio Glucose Lactic Acid 1.7 Calcium Total Bilirubin Direct Bilirubin AST ALT Alkaline Phosphatase Troponin I High Sens Total Protein Albumin Globulin Blood Type O POSITIVE Antibody Screen NEGATIVE Crossmatch See Detail Radiography Diagnostic Testing: Clinical Impression(s) from Imaging Studies Abdomen/Pelvis CTA 05/16/22 04:10 IMPRESSION: No active GI bleeding is evident. Moderate fluid in the mid to distal colon and moderate stool in most of the proximal half of the colon. Nonvisualized appendix. Cholecystectomy. Indeterminate small enhancing nodule at the periportal region of the liver, uncertain etiology and significance. Multiple and bilateral presumed renal cysts, no obvious complex mass. Cardiomegaly and bilateral pleural effusions and lung base consolidation. Atherosclerotic changes with at least moderate origin stenosis at multiple vessels. Electronically Signed: Audra Guevara MD at 5:27 EDT , Discharge Plan Triage Chief Complaint: GI Bleed ED Provider: Leoncio Ordonez Dx/Rx/DC Orders Prescriptions: No Action metoprolol tartrate 50 MG tablet 100 mg PO BID aspirin 81 MG tablet,chewable 81 mg PO DAILY@0800 allopurinol 300 MG tablet 300 mg PO DAILY vitamin B complex 1 EACH capsule 1 ea PO DAILY cyclobenzaprine 10 MG tablet 5 mg PO BID oxycodone-acetaminophen 1 EACH tablet 1 - 2 tab PO Q6H PRN PRN (Reason: Pain) Label Comments: take 1 tablet by mouth twice a day if needed for pain torsemide 20 mg Tablet 30 mg PO DAILY Hold Instructions: Resume on 05/15/22. cetirizine 10 mg Tablet 10 mg PO DAILY oxybutynin chloride [Ditropan XL] 10 mg Tablet Extended Release 24hr 10 mg PO DAILY pravastatin 40 mg Tablet 40 mg PO QHS spironolactone 25 mg Tablet 25 mg PO DAILY Hold Instructions: Resume on 05/15/22. nifedipine 60 mg Tablet Extended Release 24hr 60 mg PO DAILY albuterol 90 mcg/actuation Aerosol 2 mcg INHALATION Q4H PRN PRN (Reason: Shortness Of Breath Or Wheezing) Rx Instructions: 2 puffs q4hr prn losartan 100 mg Tablet 100 mg PO DAILY multivitamin Capsule 1 cap PO DAILY ezetimibe [Zetia] 10 mg Tablet 10 mg PO DAILY insulin aspart U-100 [Novolog Flexpen U-100 Insulin] 100 unit/mL (3 mL) Insulin Pen 10 unit SUBCUT 4X/DAY gabapentin 100 mg Tablet 100 mg PO TID cholecalciferol (vitamin D3) [Vitamin D3] 50 mcg (2,000 unit) Capsule 50 mcg PO DAILY azelastine-fluticasone 137-50 mcg/spray [place],Non-Aerosol 1 spray INTRANASAL BID Rx Instructions: administer into each nostril Soliqua 100/33 100 unit-33 mcg/mL Insulin Pen 55 unit SUBCUT DAILY Eliquis 5 mg tablet 5 mg PO BID Primary Care Provider: Alvarado Sam Referrals: Alvarado Sam MD [Primary Care Provider] - Disposition Disposition: Acute Care Hospital [facility]
--- NOTE | 2022-05-16 06:23 | PCM.HP.STD ---
[facility] - General General Date of Admission: 05/16/22 Date of Service: 05/16/22 Chief Complaint: GI bleed HPI Narrative LUCRECIA VAZQUEZ, is a 76 M who presents with hematochezia. Symptoms began around 2200 on May 15. Patient felt that he is having diarrhea then noted that was just matt blood. Presented to the emergency room and again had hematochezia. Dr. Acosta, gastroenterology was contacted from the emergency room and recommended CT angiogram. CT angiogram was performed and showed no active bleeding but did show moderate fluid in the mid to distal colon and moderate stool in the most proximal half of the colon. Patient did develop hypotension in the emergency room with blood pressure of 75/59. Patient did receive IV fluids and his blood pressure subsequently improved. Patient did also receive prothrombin complex concentrate as he takes apixaban for atrial fibrillation. Went saw the patient and he again had matt hematochezia but his vital signs are more stable at this time. Patient denies any abdominal pain. Denies any history of prior GI bleed. [facility] Medical History (Updated 05/16/22 @ 06:[address] David Barrera, ) Atrial fibrillation, new onset Chronic back pain Chronic obstructive pulmonary disease COPD (chronic obstructive pulmonary disease) Debility Diabetes Gout Heart failure with preserved ejection fraction Hyperlipidemia Hypertension Hypertension Lumbar canal stenosis Morbid obesity Type 2 diabetes mellitus Home Medications allopurinol 300 mg tablet 300 mg PO DAILY gout 01/04/15 [History Last Taken 11/16/16 06:00] aspirin 81 mg chewable tablet 81 mg PO DAILY@0800 heart health 01/04/15 [History Last Taken 11/16/16 06:00] metoprolol tartrate 50 mg tablet 100 mg PO BID heart/bloodpressure 01/04/15 [History Last Taken 12/08/16 06:30] vitamin B complex 1 ea PO DAILY supplement 10/24/16 [History Last Taken 11/16/16 06:00] cyclobenzaprine 10 mg tablet 5 mg PO BID muscle spasm 08/13/18 [History Last Taken Unknown] oxycodone-acetaminophen 5 mg-325 mg tablet 1 - 2 tab PO Q6H PRN PRN Pain 02/12/19 [History Last Taken Unknown] albuterol 90 mcg/actuation aerosol inhaler 2 mcg inhalation Q4H PRN PRN Shortness Of Breath Or Wheezing 05/08/22 [History Last Taken Unknown] azelastine-fluticasone 137 mcg-50 mcg/spray nasal spray 1 spray intranasal BID allergies 05/08/22 [History Last Taken Unknown] cetirizine 10 mg tablet 10 mg PO DAILY allergies 05/08/22 [History Last Taken Unknown] cholecalciferol (vitamin D3) 50 mcg (2,000 unit) capsule (Vitamin D3) 50 mcg PO DAILY suppliment 05/08/22 [History Last Taken Unknown] ezetimibe 10 mg tablet (Zetia) 10 mg PO DAILY cholesterol 05/08/22 [History Last Taken Unknown] gabapentin 100 mg tablet 100 mg PO TID neuropathy 05/08/22 [History Last Taken Unknown] insulin aspart U-100 100 unit/mL (3 mL) subcutaneous pen (Novolog Flexpen U-100 Insulin aspart) 10 unit subcut 4X/DAY diabetes 05/08/22 [History Last Taken Unknown] insulin glargine 100 unit-lixisenatide 33 mcg/mL subcutaneous pen (Soliqua 100/33) 55 unit subcut DAILY diabetes 05/08/22 [History Last Taken Unknown] losartan 100 mg tablet 100 mg PO DAILY heart/blood pressure 05/08/22 [History Last Taken Unknown] multivitamin 1 cap PO DAILY suppliement 05/08/22 [History Last Taken Unknown] nifedipine 60 mg tablet,extended release 24 hr 60 mg PO DAILY heart 05/08/22 [History Last Taken Unknown] oxybutynin chloride 10 mg tablet,extended release 24 hr (Ditropan XL) 10 mg PO DAILY bladder control 05/08/22 [History Last Taken Unknown] pravastatin 40 mg tablet 40 mg PO QHS cholesterol 05/08/22 [History Last Taken Unknown] spironolactone 25 mg tablet 25 mg PO DAILY diuretic 05/08/22 [History Last Taken Unknown] torsemide 20 mg tablet 30 mg PO DAILY water pill 05/08/22 [History Last Taken Unknown] apixaban 5 mg tablet (Eliquis) 5 mg PO BID blood thinner 05/13/22 [History Last Taken Unknown] Allergy/AdvReac Type Severity Reaction Status Date / Time grass pollen Allergy Hives Verified 05/16/22 02:49 Latex, Natural Rubber Allergy Unknown Verified 05/16/22 02:49 Social History household members: none Smoking Status: Former smoker alcohol intake: never substance use type: does not use ROS ROS Narrative Currently feels dizzy he had just set up on the bedside commode. No abdominal pain. No nausea vomiting. Does have chronic lower extremity edema and seeping. Does wear lymphedema wraps on his lower extremities. All review of systems were negative except as mentioned above in the history of present illness and the other review of systems. Vital Signs Vital Signs Vital Signs: 05/16/22 02:47 05/16/22 02:43 05/16/22 03:40 Temperature 36.7 C Temperature Source Temporal Pulse Rate 90 78 Respiratory Rate 16 12 Blood Pressure 75/59 L 93/54 L Blood Pressure Mean 64 67 Blood Pressure Source Blood Pressure Position Blood Pressure Location Pulse Ox 96 100 Oxygen Delivery Method Nasal Cannula Nasal Cannula Oxygen Flow Rate (L/min) 3 05/16/22 04:23 05/16/22 05:26 05/16/22 05:26 Temperature Temperature Source Pulse Rate 86 82 Respiratory Rate 16 14 Blood Pressure 76/46 L 102/47 L Blood Pressure Mean 56 65 Blood Pressure Source Blood Pressure Position Blood Pressure Location Pulse Ox 98 100 100 Oxygen Delivery Method Nasal Cannula Nasal Cannula Nasal Cannula Oxygen Flow Rate (L/min) 4 4 05/16/22 05:23 05/16/22 05:38 05/16/22 06:18 Temperature 36.6 C 36.6 C Temperature Source Oral Oral Pulse Rate 87 81 81 Respiratory Rate 16 12 14 Blood Pressure 102/47 L 121/76 H 111/62 Blood Pressure Mean 65 91 78 Blood Pressure Source Monitor Monitor Blood Pressure Position Semi-Fowlers Semi-Fowlers Blood Pressure Location Left Arm Pulse Ox 100 100 98 Oxygen Delivery Method Nasal Cannula Nasal Cannula Nasal Cannula Oxygen Flow Rate (L/min) 4 4 4 Weight Weight: 158.757 kg Body Mass Index (BMI) 54.8 Physical Exam Const alert Constitutional Narrative: Patient was seen going from the bed with assistance to the commode and transition back from the commode to the bed once again with assistance. Patient remained awake alert during entire encounter. General Appearance: cooperative HEENT normocephalic and head/scalp atraumatic Eyes Eyes Narrative: No icterus Resp normal respiratory effort, no retractions, no use of accessory muscles and clear to auscultation bilaterally Cardio regular rate, regular rhythm, S1 normal heart sound and S2 normal heart sound GI normal to inspection, nondistended, normoactive bowel sounds GI Narrative: Distended but soft and nontender. Matt hematochezia in a.m. commode. Extremity Extremity Narrative: Bilateral lower extremity edema. Lymphedema wraps in place and were not removed Skin Skin Narrative: Does have some varying aged ecchymotic lesions on upper extremities Neuro oriented x3 Sensorium / Orientation: awake and alert Speech: speech normal Psych affect normal Results Lab / Micro Data Result Diagrams: 05/16/22 03:05 05/16/22 03:05 Labs: Laboratory Results - last 24 hr 05/16/22 03:05: Sodium 138, Potassium 5.5 H, Chloride 108 H, Carbon Dioxide 24.0, Anion Gap 6, BUN 105 H*, Creatinine 2.77 H, Estim Creat Clear Calc 20.55, Est GFR (MDRD) Af Amer 29 L, Est GFR (MDRD) Non-Af 24 L, BUN/Creatinine Ratio 37.9 H, Glucose 139 H, Calcium 8.5, Total Bilirubin 0.60, Direct Bilirubin 0.19, AST 26, ALT 47, Alkaline Phosphatase 112, Troponin I High Sens 28, Total Protein 6.1 L, Albumin 2.5 L, Globulin 3.6 05/16/22 03:05: WBC 8.2, RBC 3.03 L, Hgb 9.7 L, Hct 31.7 L, MCV 104.6 H, MCH 32.0, MCHC 30.6 L, RDW Std Deviation 58.3 H, RDW Coeff of Petty 15.3 H, Plt Count 226, MPV 10.7, Immature Gran % (Auto) 0.800, Neut % (Auto) 67.2, Lymph % (Auto) 14.6 L, [place] % (Auto) 12.6 H, Eos % (Auto) 4.1, Baso % (Auto) 0.7, Absolute Neuts (auto) 5.5, Absolute Lymphs (auto) 1.20, Nucleated RBC % 0 05/16/22 03:05: PT 18.7 H, INR 1.6, APTT 40.3 H 05/16/22 03:05: Blood Type O POSITIVE, Antibody Screen NEGATIVE, Crossmatch See Detail 05/16/22 03:05: Lactic Acid 1.7 Radiology Impression Abdomen/Pelvis CTA 05/16/22 04:10 IMPRESSION: No active GI bleeding is evident. Moderate fluid in the mid to distal colon and moderate stool in most of the proximal half of the colon. Nonvisualized appendix. Cholecystectomy. Indeterminate small enhancing nodule at the periportal region of the liver, uncertain etiology and significance. Multiple and bilateral presumed renal cysts, no obvious complex mass. Cardiomegaly and bilateral pleural effusions and lung base consolidation. Atherosclerotic changes with at least moderate origin stenosis at multiple vessels. Electronically Signed: Audra Guevara MD at 5:27 EDT , Assessment & Plan Assessment/Plan (1) Gastrointestinal bleeding: (2) Acute blood loss anemia: (3) Hemorrhagic shock: (4) Chronic kidney disease, stage IV (severe): PLAN: Plan 1. Acute GI bleed Suspect lower but cannot rule out upper at this time. Patient still with hematochezia but I think is just residual blood from previous source of bleeding Patient did receive prothrombin complex concentrate as he does take apixaban for his atrial fibrillation CT angiogram of his abdomen pelvis was negative for any acute source of bleeding. Suggesting that the source of bleeding is since resolved. Plan N.p.o. GI consult for endoscopy Continue to hold apixaban Given the lack of any identifiable acute source of bleeding, transfer to tertiary facility is not necessary at this time. 2. Acute blood loss anemia Secondary to above Hemoglobin has dropped to 9.7 from 10.7 on the . I suspect discharge hemoglobin was actually lower given the large amount of hematochezia he had. Patient ordered 2 units of packed red blood cells. Plan: Monitor H&H Recheck hemoglobin after transfusions. 3. Hemorrhagic shock Resolved with IV fluids and blood products Plan: Monitor for now. No need for ICD placement at present. 4. Chronic kidney disease stage IV Creatinine is up slightly from his baseline at 2.73 which is baseline is 2.5. Patient did have a CT angiogram and this will need to be monitored closely Plan: IV fluids at 100 cc an hour for 1 L. 5. Heart failure with preserved ejection fraction Complicated by severe pulmonary hypertension. Echocardiogram from [place] 15 of this year showed EF 55% but also a right ventricular systolic pressure of 71 mmHg consistent with severe pulmonary hypertension. Patient's diuretics, including torsemide and spironolactone, will be held. Additionally holding losartan. 6. Diabetes mellitus type 2 Plan: Hold his basal insulin will be n.p.o. for the time being. Sliding scale insulin for now. 7. Morbid obesity Complicates overall care and recovery 8. VTE prophylaxis with SCDs. Chemical prophylaxis contraindicated in light of the acute hemorrhage. Charges/Coding Visit Charges Inpatient E&M: 24529 Init Hosp L3
--- NOTE | 2022-05-16 07:21 | ED.RN ---
son called and updated on admission and made aware of patient condition
--- NOTE | 2022-05-16 08:00 | PCM.CONS.GEN ---
Assessment & Plan Assessment/Plan (1) Gastrointestinal bleeding: PLAN: The differential diagnosis for his acute blood loss anemia would be GI bleeding secondary to NSAIDs plus anticoagulation. This is likely an upper GI tract due to the fact that he was having melena. He will undergo an upper endoscopy to evaluate his upper GI tract. He was explained alternatives, risk, benefits including not withstanding bleeding, infection, sepsis, perforation, need for emergent surgery . He of an ASA of 3. HPI Consult Data Date of Consult: 05/16/22 HPI Narrative Reason for Consultation: GI bleeding HPI Narrative: LUCRECIA VAZQUEZ, is a 76 M who presents from the transition care unit with lower GI bleed. He was recently started on Eliquis for new onset atrial fibrillation. He takes uses due to history of CAD. He also has history of hyperlipidemia hypertension diabetes and heart failure.? Patient has been doing well but this evening around 10 or 11 PM began with bloody bowel movements.? He states that other than feeling the urge to defecate he does not have abdominal pain chest pain headache or shortness of breath.? The patient was in the extended care facility and they reported that his blood pressure was beginning to reduce and he been having recurrent bouts of the bloody stool and with this they sent him to the ER for evaluation.? [facility] Medical History (Updated 05/16/22 @ 06:[address] David Barrera, ) Atrial fibrillation, new onset Chronic back pain Chronic obstructive pulmonary disease COPD (chronic obstructive pulmonary disease) Debility Diabetes Gout Heart failure with preserved ejection fraction Hyperlipidemia Hypertension Hypertension Lumbar canal stenosis Morbid obesity Type 2 diabetes mellitus Home Medications allopurinol 300 mg tablet 300 mg PO DAILY gout 01/04/15 [History Last Taken 11/16/16 06:00] aspirin 81 mg chewable tablet 81 mg PO DAILY@0800 heart health 01/04/15 [History Last Taken 11/16/16 06:00] metoprolol tartrate 50 mg tablet 100 mg PO BID heart/bloodpressure 01/04/15 [History Last Taken 12/08/16 06:30] vitamin B complex 1 ea PO DAILY supplement 10/24/16 [History Last Taken 11/16/16 06:00] cyclobenzaprine 10 mg tablet 5 mg PO BID muscle spasm 08/13/18 [History Last Taken Unknown] oxycodone-acetaminophen 5 mg-325 mg tablet 1 - 2 tab PO Q6H PRN PRN Pain 02/12/19 [History Last Taken Unknown] albuterol 90 mcg/actuation aerosol inhaler 2 mcg inhalation Q4H PRN PRN Shortness Of Breath Or Wheezing 05/08/22 [History Last Taken Unknown] azelastine-fluticasone 137 mcg-50 mcg/spray nasal spray 1 spray intranasal BID allergies 05/08/22 [History Last Taken Unknown] cetirizine 10 mg tablet 10 mg PO DAILY allergies 05/08/22 [History Last Taken Unknown] cholecalciferol (vitamin D3) 50 mcg (2,000 unit) capsule (Vitamin D3) 50 mcg PO DAILY suppliment 05/08/22 [History Last Taken Unknown] ezetimibe 10 mg tablet (Zetia) 10 mg PO DAILY cholesterol 05/08/22 [History Last Taken Unknown] gabapentin 100 mg tablet 100 mg PO TID neuropathy 05/08/22 [History Last Taken Unknown] insulin aspart U-100 100 unit/mL (3 mL) subcutaneous pen (Novolog Flexpen U-100 Insulin aspart) 10 unit subcut 4X/DAY diabetes 05/08/22 [History Last Taken Unknown] insulin glargine 100 unit-lixisenatide 33 mcg/mL subcutaneous pen (Soliqua 100/33) 55 unit subcut DAILY diabetes 05/08/22 [History Last Taken Unknown] losartan 100 mg tablet 100 mg PO DAILY heart/blood pressure 05/08/22 [History Last Taken Unknown] multivitamin 1 cap PO DAILY suppliement 05/08/22 [History Last Taken Unknown] nifedipine 60 mg tablet,extended release 24 hr 60 mg PO DAILY heart 05/08/22 [History Last Taken Unknown] oxybutynin chloride 10 mg tablet,extended release 24 hr (Ditropan XL) 10 mg PO DAILY bladder control 05/08/22 [History Last Taken Unknown] pravastatin 40 mg tablet 40 mg PO QHS cholesterol 05/08/22 [History Last Taken Unknown] spironolactone 25 mg tablet 25 mg PO DAILY diuretic 05/08/22 [History Last Taken Unknown] torsemide 20 mg tablet 30 mg PO DAILY water pill 05/08/22 [History Last Taken Unknown] apixaban 5 mg tablet (Eliquis) 5 mg PO BID blood thinner 05/13/22 [History Last Taken Unknown] Allergy/AdvReac Type Severity Reaction Status Date / Time grass pollen Allergy Hives Verified 05/16/22 02:49 Latex, Natural Rubber Allergy Unknown Verified 05/16/22 02:49 Social History household members: none Smoking Status: Former smoker alcohol intake: never substance use type: does not use ROS ROS Narrative Currently feels dizzy he had just set up on the bedside commode. No abdominal pain. No nausea vomiting. Does have chronic lower extremity edema and seeping. Does wear lymphedema wraps on his lower extremities. All review of systems were negative except as mentioned above in the history of present illness and the other review of systems. Physical Exam Const alert Constitutional Narrative: Patient was seen going from the bed with assistance to the commode and transition back from the commode to the bed once again with assistance. Patient remained awake alert during entire encounter. General Appearance: cooperative HEENT normocephalic and head/scalp atraumatic Eyes Eyes Narrative: No icterus Resp normal respiratory effort, no retractions, no use of accessory muscles and clear to auscultation bilaterally Cardio regular rate, regular rhythm, S1 normal heart sound and S2 normal heart sound GI normal to inspection, nondistended, normoactive bowel sounds GI Narrative: Distended but soft and nontender. Feng hematochezia in a.m. commode. Extremity Extremity Narrative: Bilateral lower extremity edema. Lymphedema wraps in place and were not removed Skin Skin Narrative: Does have some varying aged ecchymotic lesions on upper extremities Neuro oriented x3 Sensorium / Orientation: awake and alert Speech: speech normal Psych affect normal Lab / Micro Data Result Diagrams: 05/16/22 13:25 05/16/22 03:05 Labs: Laboratory Results - last 24 hr 05/16/22 03:05: Sodium 138, Potassium 5.5 H, Chloride 108 H, Carbon Dioxide 24.0, Anion Gap 6, BUN 105 H*, Creatinine 2.77 H, Estim Creat Clear Calc 20.55, Est GFR (MDRD) Af Amer 29 L, Est GFR (MDRD) Non-Af 24 L, BUN/Creatinine Ratio 37.9 H, Glucose 139 H, Calcium 8.5, Total Bilirubin 0.60, Direct Bilirubin 0.19, AST 26, ALT 47, Alkaline Phosphatase 112, Troponin I High Sens 28, Total Protein 6.1 L, Albumin 2.5 L, Globulin 3.6 05/16/22 03:05: WBC 8.2, RBC 3.03 L, Hgb 9.7 L, Hct 31.7 L, MCV 104.6 H, MCH 32.0, MCHC 30.6 L, RDW Std Deviation 58.3 H, RDW Coeff of Petty 15.3 H, Plt Count 226, MPV 10.7, Immature Gran % (Auto) 0.800, Neut % (Auto) 67.2, Lymph % (Auto) 14.6 L, [place] % (Auto) 12.6 H, Eos % (Auto) 4.1, Baso % (Auto) 0.7, Absolute Neuts (auto) 5.5, Absolute Lymphs (auto) 1.20, Nucleated RBC % 0 05/16/22 03:05: PT 18.7 H, INR 1.6, APTT 40.3 H 05/16/22 03:05: Blood Type O POSITIVE, Antibody Screen NEGATIVE, Crossmatch See Detail 05/16/22 03:05: Lactic Acid 1.7 05/16/22 11:10: POC Glucose 163 H 05/16/22 13:25: Hgb 9.0 L, Hct 28.7 L 05/16/22 16:08: POC Glucose 179 H Radiology Impression Abdomen/Pelvis CTA 05/16/22 04:10 IMPRESSION: No active GI bleeding is evident. Moderate fluid in the mid to distal colon and moderate stool in most of the proximal half of the colon. Nonvisualized appendix. Cholecystectomy. Indeterminate small enhancing nodule at the periportal region of the liver, uncertain etiology and significance. Multiple and bilateral presumed renal cysts, no obvious complex mass. Cardiomegaly and bilateral pleural effusions and lung base consolidation. Atherosclerotic changes with at least moderate origin stenosis at multiple vessels. Electronically Signed: Audra Guevara MD at 5:27 EDT , Charges/Coding Visit Charges Inpatient E&M: 18666 Init Hosp L2
[2022-05-16] MEDS: Azelastine HCl NASAL.SRY 1 SPRAY NASAL ×2 (10:53→21:58)
[2022-05-16] MEDS: Fluticasone 0.05% 1 SPRAY NASAL.SRY NASAL ×2 (10:54→21:59)
[2022-05-16] MEDS: 0.9% Normal Saline 1,000 ML 100 ML IV (11:09)
--- NOTE | 2022-05-16 11:14 | WOUNDNOTE ---
wound photo: left lower leg
--- NOTE | 2022-05-16 11:14 | WOUNDNOTE ---
wound photo: right lower leg
--- NOTE | 2022-05-16 11:15 | WOUNDNOTE ---
wound photo: right posterolateral lower leg
[2022-05-16 11:40] LABS: Bedside Glucose 163 mg/dL (74-106)
--- NOTE | 2022-05-16 12:18 | OP.CCLET_ITS ---
08/26/2022 Alvarado Sam [address] [place] [address] Re : Upper GI endoscopy procedure for Vahid Diallo Dear Dr. Sam This procedure was performed on Monday, May 16, 2022. My impressions and recommendations are as follows: Impressions : - Normal esophagus. - Medium-sized hiatal hernia. - Oozing gastric ulcers with pigmented material. Treated with a heater probe. - Normal first portion of the duodenum. - No specimens collected. Recommendations : - [facility] - Use Protonix (pantoprazole) 40 mg PO BID for 12 weeks. - Use sucralfate tablets 1 gram PO BID for 12 weeks. - No aspirin, ibuprofen, naproxen, or other non-steroidal anti-inflammatory drugs for 7 days. My findings are described in the full procedure note, which is enclosed. If I can be of further assistance, please feel free to contact me at . Sincerely, Raz Acosta, 05/16/2022 12:17:47 PM This report has been signed electronically.
--- NOTE | 2022-05-16 12:18 | OP.EGD_ITS ---
Patient Name: Vahid Diallo Procedure Date: 05/16/2022 11:53 AM Date of : 1945 Age: 76 Procedure: Upper GI endoscopy Indications: Acute post hemorrhagic anemia, Melena Providers: Raz Acosta DO Medicines: Monitored Anesthesia Care Patient Profile: This is a 76 year old male. Refer to note in patient chart for documentation of history and physical. Patient has symptoms. Complications: No immediate complications. Procedure: Pre-Anesthesia Assessment: - Prior to the procedure, a History and Physical was performed, and patient medications and allergies were reviewed. The patient is competent. The risks and benefits of the procedure and the sedation options and risks were discussed with the patient. All questions were answered and informed consent was obtained. Patient identification and proposed procedure were verified by the physician in the pre-procedure area. Mental Status Examination: alert and oriented. Airway Examination: normal oropharyngeal airway and neck mobility. Respiratory Examination: clear to auscultation. CV Examination: normal. Prophylactic Antibiotics: The patient does not require prophylactic antibiotics. Prior Anticoagulants: The patient has taken no previous anticoagulant or antiplatelet agents. ASA Grade Assessment: II - A patient with mild systemic disease. After reviewing the risks and benefits, the patient was deemed in satisfactory condition to undergo the procedure. The anesthesia plan was to use moderate sedation / analgesia (conscious sedation). Immediately prior to administration of medications, the patient was re-assessed for adequacy to receive sedatives. The heart rate, respiratory rate, oxygen saturations, blood pressure, adequacy of pulmonary ventilation, and response to care were monitored throughout the procedure. The physical status of the patient was re-assessed after the procedure. After obtaining informed consent, the endoscope was passed under direct vision. Throughout the procedure, the patient's blood pressure, pulse, and oxygen saturations were monitored continuously. The Endoscope was introduced through the mouth, and advanced to the second part of duodenum. The upper GI endoscopy was accomplished without difficulty. The patient tolerated the procedure well. Scope In: 12:02:51 PM Scope Out: 12:07:39 PM Total Procedure Duration Time 0 hours 4 minutes 48 seconds Findings: The examined esophagus was normal. A medium-sized hiatal hernia was present. Many oozing superficial gastric ulcers with pigmented material were found in the cardia, in the gastric fundus, in the gastric body, at the incisura, in the gastric antrum and in the prepyloric region of the stomach. The largest lesion was 6 mm in largest dimension. Coagulation for hemostasis using heater probe was successful. Estimated blood loss was minimal. The first portion of the duodenum was normal. Impression: - Normal esophagus. - Medium-sized hiatal hernia. - Oozing gastric ulcers with pigmented material. Treated with a heater probe. - Normal first portion of the duodenum. - No specimens collected. Recommendation: - [facility]. - Use Protonix (pantoprazole) 40 mg PO BID for 12 weeks. - Use sucralfate tablets 1 gram PO BID for 12 weeks. - No aspirin, ibuprofen, naproxen, or other non-steroidal anti-inflammatory drugs for 7 days. Procedure Code(s): --- Professional --- 93693, Esophagogastroduodenoscopy, flexible, transoral; with control of bleeding, any method CPT copyright 2017 [employer]. All rights reserved. The codes documented in this report are preliminary and upon death surveys coder review may be revised to meet current compliance requirements. Raz Acosta DO 05/16/2022 12:17:47 PM This report has been signed electronically. Number of Addenda: 1 Note Initiated On: 05/16/2022 11:53 AM Addendum Number: 1 Addendum Date: 08/26/2022 6:08:20 AM MAC was used as sedation for this procedure. Raz Acosta DO 08/26/2022 6:08:27 AM This report has been signed electronically.
[2022-05-16 13:32] LABS: Hematocrit 28.7 % (40-54)
[2022-05-16] MEDS: Sucralfate 1 GM Tablet PO ×2 (14:24→21:59)
[2022-05-16] MEDS: Gabapentin 100 MG Capsule PO ×2 (14:24→22:09)
--- NOTE | 2022-05-16 14:58 | CASEMGMT ---
JONATHON MOROCHO Readmission Note: Prior admission: Admitted 05/07/21 from home w/hypoxia secondary to A on C diastolic CHF and PNA. Pt also w/new onset- A-Fib. Pt started on Eliquis during hospitalization. Pt discharged to TCU 05/13/22 on Eliquis and recommended OP follow-up with cardiology and pulmonology. Current admission: Admitted 05/16 from TCU w/GIB. Naseem RAMIRES RN CM
--- NOTE | 2022-05-16 15:16 | CASEMGMT ---
DARIO asked Alecia to start the pre-cert. Plan: d/c back to TCU pending pre-cert. Simi Samuels MSW TRAFFIC OBSERVER
[2022-05-16] MEDS: Insulin Lispro 100 UNIT/ML INSULN.PEN SC (16:15)
[2022-05-16 16:31] LABS: Bedside Glucose 179 mg/dL (74-106)
--- NOTE | 2022-05-16 16:46 | NURSING ---
Addendum entered by Brandi Austin 05/16/22 16:58: Dr. Mcbride aware. Original Note: Alecia called from TCU to inform us pt received precert and can come back to TCU at any time. Will need a covid test prior.
[2022-05-16 19:28] LABS: Hematocrit 28.4 % (40-54)
[2022-05-16 23:40] LABS: Bedside Glucose 213 mg/dL (74-106)
[2022-05-17] VITALS (48 sets, daily range): BP systolic 56–143; BP diastolic 25–114; PULSE 100–124; RESP 13–27; TEMP 35.9–36.4; O2SAT 93–100
--- NOTE | 2022-05-17 01:13 | PCM.HOSP.N ---
Hospitalist Note Notified nursing patient very large bloody bowel movements. He had a blood pressure of 79/25 and then went up to 97/37. Patient denies any complaints at this time. I did readdress CODE STATUS with the patient. Explained to him in details below survivability particular with individuals with multiple medical committees such as himself and that if he were to survive CPR that he would be on life support if he were to actually come off of life support at a later point that he would be even more profoundly debilitated and he already is. Patient seen and examined independently. Data and vitals reviewed. I agree with the above note by the physician field administrative assistant. Seem to take a conversation and stride and did not have any further comment and expressed no willingness to change his CODE STATUS at this time. Will check hemoglobin. Nursing has reached out to GI. I did talk to the patient that if he is continue to have bleeding that he may require another CT angiogram to see if there is bleeding which could potentially lead him to renal failure and potentially requiring dialysis. I am seeing Take That in stride as well and did not seem to be affected in any way of the gravity of the situation. So we will check his hemoglobin determine if any further measures are necessary.
[2022-05-17 01:53] LABS: Hematocrit 19.4 % (40-54); Hemoglobin 7.1 g/dL (13.0-16.5)
--- NOTE | 2022-05-17 02:03 | NURSING ---
paged dr duque through the [facility] 2 advanced operator for a call back again d/t no response from previous messages.
--- NOTE | 2022-05-17 04:39 | NURSING ---
called patient access to put in double lumen picc line, talked to Axel
--- NOTE | 2022-05-17 04:40 | RAD_ITS ---
EXAM: XR CHEST, 1 VIEW CLINICAL INDICATION: check d/t failed line placement TECHNIQUE: Frontal view of the chest. This report was created using [employer] report generation technology. COMPARISON: 05/07/2022. CT scan of the abdomen and pelvis that demonstrates the lung bases 05/16/2022 FINDINGS: LUNGS AND PLEURAL SPACES: Small pleural effusions that were seen on the CT scan. Mild patchy opacity left midlung similar to the prior exam may be due to edema or pneumonia. No pneumothorax. HEART: Cardiomegaly. MEDIASTINUM: Central airways and mediastinal contour are unremarkable. BONES/JOINTS: Unremarkable. SOFT TISSUES: Unremarkable. RAD/CXR for Line Placement IMPRESSION: 1. Cardiomegaly. 2. Small pleural effusions that were seen on the CT scan. 3. Mild patchy opacity left midlung similar to the prior exam may be due to edema or pneumonia. 4. No pneumothorax. Electronically Signed: Josep Garcia MD at 5:13 EDT ,
[2022-05-17] MEDS: Menthol/Lanolin/Calamine/Znox 113 GM Tube 1 APPLIC TOPICAL ×3 (06:42→22:06)
[2022-05-17] MEDS: Nystatin Powder 15gm Bottle 1 APPLIC TOPICAL ×3 (06:43→22:07)
[2022-05-17] MEDS: Insulin Lispro 100 UNIT/ML INSULN.PEN SC ×3 (06:43→16:38)
--- NOTE | 2022-05-17 06:44 | EX.PCM.CONCC ---
Assessment & Plan Assessment/Plan (1) Acute blood loss anemia: (2) Gastrointestinal bleeding: (3) Hemorrhagic shock: (4) Chronic kidney disease, stage IV (severe): PLAN: Plan RECOMMENDATIONS: 1. Proceed with PICC line for access 2. Volume resuscitation as tolerates 3. Await GI recommendations 4. Possible need for initiation of pressors 5. Hold diuretics for now 6. Hold basal insulin given n.p.o. status IMPRESSIONS: 1. Hemorrhagic shock secondary to acute blood loss anemia secondary to lower GI bleed Clinical suspicion for diverticular bleed leading to the current presentation. Patient was on anticoagulation secondary to atrial fibrillation. CT angio of the abdomen did not show a source of bleeding. Most recent bowel movement did show a clot without gross hematochezia. This may indicate spontaneous control. Labs have been ordered. We will transfuse to keep hemoglobin greater than 9 given acute GI bleed. Patient will have a PICC line placed for access, preferably on the right. Patient should remain in the intensive care unit until definitive therapy is achieved. Cannot exclude the need for transfer for embolization. 2. CKD stage IV Patient with significantly elevated BUN, likely secondary to problem #1. Patient's creatinine appears to be at baseline. No signs of EKG changes associated with hyperkalemia. We will continue to monitor. Patient does state that he wished to be aggressive. 3. Chronic diastolic CHF/diabetes mellitus type 2/morbid obesity/probable ANTHONY/hypertension/recent pneumonia Complicates care, management, recovery and prognosis. Patient does have some superficial ulcers, but no significant wounds. We will need to watch closely. Basal insulin will be held given n.p.o. status. Hold antihypertensives. HPI Consult Data Date of Consult: 05/17/22 HPI Narrative Reason for Consultation: Hypotension HPI Narrative: LUCRECIA VAZQUEZ is a 76 M, with past medical history listed below, who presents to [facility] on 05/16/2022 secondary to hematochezia. Patient reportedly had his first episode at around 10 PM on May 15. Patient was having diarrhea that transitioned to matt blood. Patient was transitioned from the transitional care unit to the ER for evaluation. Dr. Acosta had recommended a CT angiogram for evaluation. Patient's blood pressure at that time was 75/59. Patient did receive IV fluids with improvement. Patient also received PCC as he takes apixaban for new onset A. fib. Patient had denied any abdominal pain and has no history of previous GI bleeds. In the ER, patient had significant hypotension with a blood pressure of 75/59 and was placed on 3 L nasal cannula. Patient was afebrile. Patient did respond to fluid resuscitation. Laboratory work-up showed a hemoglobin of 9.7 with a BUN of 105 and a creatinine of 2.77. Potassium was elevated at 5.5 and INR was elevated at 1.6. Patient was noted to have a positive blood type. Patient was admitted to the floor for further evaluation. Overnight, patient became progressively hypotensive with recurrent hematochezia. Patient was subsequently transferred to the intensive care unit for further evaluation. In the intensive care unit, the hospitalist that tried multiple times for an of right IJ. Patient was able to be cannulated, but was unable to advance catheter per nursing report. Patient received an additional 3 units of packed red blood cells with improvement in blood pressure. On my evaluation, patient's daughter is at the bedside. Patient is reporting thirst, but otherwise does not have a lot of complaints. Patient is lying flat. Patient is hard of hearing and reportedly is supposed to wear hearing aids. Patient is not reporting any history of GI bleeds previously. Patient has not had any abdominal surgeries. Patient states he was supposed to have a colonoscopy 2 or 3 weeks ago, but this was complicated by the development of pneumonia leading the hospitalization. Patient does have a history of stage IV kidney disease, but is unaware of his exact baseline. Patient's nurse reports that his last bowel movement was relatively normal except for a large clot. Patient appears to be edematous, but per family and patient this is his baseline. Patient denies a history of obstructive sleep apnea, but has never been tested. Patient's daughter does report that he snores significantly. Patient reportedly has had a right-sided PICC line in the past, but it is unclear if this was associated with a clot or not. Review of systems otherwise negative from a constitutional, HEENT, respiratory, cardiovascular, GI, genitourinary, musculoskeletal, skin, neurologic, psychiatric and hematologic system unless stated above. [facility] Medical History Atrial fibrillation, new onset Chronic back pain Chronic obstructive pulmonary disease COPD (chronic obstructive pulmonary disease) Debility Diabetes Gout Heart failure with preserved ejection fraction Hyperlipidemia Hypertension Hypertension Lumbar canal stenosis Morbid obesity Type 2 diabetes mellitus Home Medications allopurinol 300 mg tablet 300 mg PO DAILY gout 01/04/15 [History Last Taken 11/16/16 06:00] aspirin 81 mg chewable tablet 81 mg PO DAILY@0800 heart health 01/04/15 [History Last Taken 11/16/16 06:00] metoprolol tartrate 50 mg tablet 100 mg PO BID heart/bloodpressure 01/04/15 [History Last Taken 12/08/16 06:30] vitamin B complex 1 ea PO DAILY supplement 10/24/16 [History Last Taken 11/16/16 06:00] cyclobenzaprine 10 mg tablet 5 mg PO BID muscle spasm 08/13/18 [History Last Taken Unknown] oxycodone-acetaminophen 5 mg-325 mg tablet 1 - 2 tab PO Q6H PRN PRN Pain 02/12/19 [History Last Taken Unknown] albuterol 90 mcg/actuation aerosol inhaler 2 mcg inhalation Q4H PRN PRN Shortness Of Breath Or Wheezing 05/08/22 [History Last Taken Unknown] azelastine-fluticasone 137 mcg-50 mcg/spray nasal spray 1 spray intranasal BID allergies 05/08/22 [History Last Taken Unknown] cetirizine 10 mg tablet 10 mg PO DAILY allergies 05/08/22 [History Last Taken Unknown] cholecalciferol (vitamin D3) 50 mcg (2,000 unit) capsule (Vitamin D3) 50 mcg PO DAILY suppliment 05/08/22 [History Last Taken Unknown] ezetimibe 10 mg tablet (Zetia) 10 mg PO DAILY cholesterol 05/08/22 [History Last Taken Unknown] gabapentin 100 mg tablet 100 mg PO TID neuropathy 05/08/22 [History Last Taken Unknown] insulin aspart U-100 100 unit/mL (3 mL) subcutaneous pen (Novolog Flexpen U-100 Insulin aspart) 10 unit subcut 4X/DAY diabetes 05/08/22 [History Last Taken Unknown] insulin glargine 100 unit-lixisenatide 33 mcg/mL subcutaneous pen (Soliqua 100/33) 55 unit subcut DAILY diabetes 05/08/22 [History Last Taken Unknown] losartan 100 mg tablet 100 mg PO DAILY heart/blood pressure 05/08/22 [History Last Taken Unknown] multivitamin 1 cap PO DAILY suppliement 05/08/22 [History Last Taken Unknown] nifedipine 60 mg tablet,extended release 24 hr 60 mg PO DAILY heart 05/08/22 [History Last Taken Unknown] oxybutynin chloride 10 mg tablet,extended release 24 hr (Ditropan XL) 10 mg PO DAILY bladder control 05/08/22 [History Last Taken Unknown] pravastatin 40 mg tablet 40 mg PO QHS cholesterol 05/08/22 [History Last Taken Unknown] spironolactone 25 mg tablet 25 mg PO DAILY diuretic 05/08/22 [History Last Taken Unknown] torsemide 20 mg tablet 30 mg PO DAILY water pill 05/08/22 [History Last Taken Unknown] apixaban 5 mg tablet (Eliquis) 5 mg PO BID blood thinner 05/13/22 [History Last Taken Unknown] Allergy/AdvReac Type Severity Reaction Status Date / Time grass pollen Allergy Hives Verified 05/16/22 02:49 Latex, Natural Rubber Allergy Unknown Verified 05/16/22 02:49 Social History household members: none Smoking Status: Former smoker alcohol intake: never substance use type: does not use ROS ROS Narrative See HPI Medical Records Data Attestation: I reviewed the patient's medical records Lab / Micro Data Attestation: I reviewed the patient's lab results. Result Diagrams: 05/17/22 01:48 05/16/22 03:05 Labs: Laboratory Results - last 24 hr 05/16/22 03:05: Blood Type O POSITIVE, Antibody Screen NEGATIVE, Crossmatch See Detail 05/16/22 03:28: Crossmatch See Detail 05/16/22 03:28: Crossmatch See Detail 05/16/22 11:10: POC Glucose 163 H 05/16/22 13:25: Hgb 9.0 L, Hct 28.7 L 05/16/22 16:08: POC Glucose 179 H 05/16/22 19:22: Hgb 9.0 L, Hct 28.4 L 05/16/22 21:22: POC Glucose 213 H 05/17/22 01:48: Hgb 7.1 L, Hct 19.4 L Rhythm Strip Rhythm Strip: A-fib Rate: 104 Radiology Impression Chest X-Ray 05/17/22 04:40 IMPRESSION: 1. Cardiomegaly. 2. Small pleural effusions that were seen on the CT scan. 3. Mild patchy opacity left midlung similar to the prior exam may be due to edema or pneumonia. 4. No pneumothorax. Electronically Signed: Josep Garcia MD at 5:13 EDT , Charges/Coding Visit Charges Inpatient E&M: 27774 Init Hosp L3
[2022-05-17 06:55] LABS: Bedside Glucose 274 mg/dL (74-106)
[2022-05-17 08:25] LABS: Absolute Lymphocyte Count 0.77 X10^3/uL (0.83-4.51); Absolute Neutrophil Count 10.6 X10^3/uL (2.0-7.7); Basophil# 0.06 X10^3/uL; Basophil% 0.5 % (0-1); Eosinophil# 0.02 X10^3/uL; Eosinophils% 0.2 % (0-5); Hematocrit 27.2 % (40-54); Hemoglobin 8.6 g/dL (13.0-16.5); Lymphocyte # 0.77 X10^3/ul (0.83-4.51); Mean Corp Hgb Conc 31.6 g/dL (32-36); Mean Corpuscular Volume 98.2 fL (80-94); Mean Platelet Vol. 10.4 fl (6.2-12.0); Monocyte# 1.19 X10^3/uL; Monocyte% 9.3 % (0-10); NRBC Flagged by Analyzer 0 % (0-5); Neutrophil # 10.59 X10^3/uL (2.7-7.7); Neutrophil % 82.7 % (47-70); Platelet Count 184 K/mm3 (150-450); RBC Distribution Width CV 16.4 % (11.6-14.6); RBC Distribution Width SD 58.6 fl (35.1-43.9); Red Blood Count 2.77 M/mm3 (4.6-6.2); White Blood Count 12.8 K/mm3 (4.4-11.0)
[2022-05-17 08:40] LABS: Anion Gap 5 (5-15); BUN 115 mg/dL (7-18); BUN/Creat Ratio 38.5 RATIO (10-20); Calcium,Total 7.8 mg/dL (8.5-10.1); Chloride 109 mmol/L (98-107); Creatinine, Serum 2.99 mg/dL (0.70-1.30); EST Glomerular Filtration Rate 22 mL/min (>60); Est Glom Filt Rate - Afr Amer 26 mL/min (>60); Estimated Creatinine Clearance 19.04 ml/min; Glucose 284 mg/dL (74-106); Potassium 7.8 mmol/L (3.5-5.1); Sodium Level 136 mmol/L (136-145)
--- NOTE | 2022-05-17 08:42 | EKG12_ITS ---
Test Reason : ARRYTHMIA Blood Pressure : / mmHG Vent. Rate : 111 BPM Atrial Rate : 127 BPM P-R Int : 144 ms QRS Dur : 162 ms QT Int : 464 ms P-R-T Axes : 000 -68 044 degrees QTc Int : 631 ms Sinus tachycardia Left axis deviation Right bundle branch block Abnormal ECG Confirmed by FRANKO AG, RJ ([id number]), acquisitions editor SAMANTA LEE ([id number]) on 05/20/2022 8:37:28 AM Referred By: GRETCHEN Confirmed By:RJ ABDUL MD
--- NOTE | 2022-05-17 09:06 | PN_ITS ---
Subjective Subjective Patient had multiple bleeding episodes overnight and was sent to the ICU due to hypotension. Objective Data Objective Data Vital Signs: Vital Signs Temp Pulse Resp BP Pulse Ox 97 F L 109 H 18 82/73 L 98 05/17/22 07:00 05/17/22 07:00 05/17/22 07:00 05/17/22 07:00 05/17/22 07:00 Oxygen Flow Rate (L/min) 3 Oxygen Delivery Method Nasal Cannula Weight: 370 lb 6.025 oz Body Mass Index (BMI) 57.3 Intake & Output: Intake and Output for Last 24 Hours 05/15/22 05/16/22 05/17/22 23:59 23:59 23:59 Intake Total 3191.75 / 3311.75 1430 / 1430 Output Total 800 / 800 Balance 3191.75 / 3311.75 630 / 630 Lab / Micro Data Result Diagrams: 05/17/22 08:15 05/17/22 08:15 Labs: Laboratory Results - last 24 hr 05/16/22 03:05: Crossmatch See Detail 05/16/22 03:28: Crossmatch See Detail 05/16/22 03:28: Crossmatch See Detail 05/16/22 11:10: POC Glucose 163 H 05/16/22 13:25: Hgb 9.0 L, Hct 28.7 L 05/16/22 16:08: POC Glucose 179 H 05/16/22 19:22: Hgb 9.0 L, Hct 28.4 L 05/16/22 21:22: POC Glucose 213 H 05/17/22 01:48: Hgb 7.1 L, Hct 19.4 L 05/17/22 06:41: POC Glucose 274 H 05/17/22 08:15: WBC 12.8 H, RBC 2.77 L, Hgb 8.6 L, Hct 27.2 L, MCV 98.2 H D, MCH 31.0, MCHC 31.6 L, RDW Std Deviation 58.6 H, RDW Coeff of Petty 16.4 H, Plt Count 184, MPV 10.4, Immature Gran % (Auto) 1.300 H, Neut % (Auto) 82.7 H, Lymph % (Auto) 6.0 L, [place] % (Auto) 9.3, Eos % (Auto) 0.2, Baso % (Auto) 0.5, Absolute Neuts (auto) 10.6 H, Absolute Lymphs (auto) 0.77 L, Nucleated RBC % 0 05/17/22 08:15: Sodium 136, Potassium 7.8 H*, Chloride 109 H, Carbon Dioxide 22.0, Anion Gap 5, BUN 115 H*, Creatinine 2.99 H, Estim Creat Clear Calc 19.04, Est GFR (MDRD) Af Amer 26 L, Est GFR (MDRD) Non-Af 22 L, BUN/Creatinine Ratio 38.5 H, Glucose 284 H, Calcium 7.8 L Radiography Diagnostic Testing: Radiology Impression Chest X-Ray 05/17/22 04:40 IMPRESSION: 1. Cardiomegaly. 2. Small pleural effusions that were seen on the CT scan. 3. Mild patchy opacity left midlung similar to the prior exam may be due to edema or pneumonia. 4. No pneumothorax. Electronically Signed: Josep Garcia MD at 5:13 EDT , Rhythm Strip Rhythm Strip: A-fib Rate: 104 Physical Exam Const alert Constitutional Narrative: Patient awake alert during entire encounter. General Appearance: cooperative HEENT normocephalic and head/scalp atraumatic Eyes Eyes Narrative: No icterus Resp normal respiratory effort, no retractions, no use of accessory muscles and clear to auscultation bilaterally Cardio regular rate, regular rhythm, S1 normal heart sound and S2 normal heart sound GI normal to inspection, nondistended, normoactive bowel sounds GI Narrative: Distended but soft and nontender. Feng hematochezia in a.m. commode. Extremity Extremity Narrative: Bilateral lower extremity edema. Lymphedema wraps in place and were not removed Skin Skin Narrative: Does have some varying aged ecchymotic lesions on upper extremities Neuro oriented x3 Sensorium / Orientation: awake and alert Speech: speech normal Psych affect normal Assessment & Plan Assessment/Plan (1) Hemorrhagic shock: PLAN: Hemorrhagic shock either from a small bowel bleed or bleed in the colon. It is not safe enough to give the patient anesthesia at this time due to his severe hyperkalemia. At this time he is hemodynamically stable. He will. have to be prepped for colonoscopy which could help his hyperkalemia. Initially we were going to do the colonoscopy unprepped, however I suspect that he has stopped bleeding. Therefore he will need to undergo a preparation to clean out the old blood (2) Acute blood loss anemia: PLAN: Acute blood loss anemia likely secondary to GI bleed. (3) Chronic kidney disease, stage IV (severe): PLAN: He cannot get a repeat CT angiography even though he was sent to the ICU due to stage IV CKD, hyperkalemia and severely elevated BUN. (4) Gastrointestinal bleeding: PLAN: He underwent an upper endoscopy and did have an upper GI source that was bleeding yesterday and that was treated endoscopically (5) Hyperkalemia: PLAN: . He will have to undergo treatment which normalizes his potassium and electrolytes prior to him undergoing an endoscopic procedure. Charges/Coding Visit Charges Inpatient E&M: 60897 [facility] Hosp L3
--- NOTE | 2022-05-17 09:26 | PCM.PN.HOSP ---
Subjective Subjective Had some more bleeding episodes overnight and became hypotensive and was transferred to the ICU. A right IJ was attempted but could not be advanced therefore we will plan for a PICC line. He was also transfused 3 units overnight. Objective Data Objective Data Vital Signs: Vital Signs Temp Pulse Resp BP Pulse Ox 97 F L 109 H 18 82/73 L 98 05/17/22 07:00 05/17/22 07:00 05/17/22 07:00 05/17/22 07:00 05/17/22 07:00 Oxygen Flow Rate (L/min) 3 Oxygen Delivery Method Nasal Cannula Weight: 370 lb 6.025 oz Body Mass Index (BMI) 57.3 Intake & Output: Intake and Output for Last 24 Hours 05/16/22 05/17/22 05/18/22 03:59 03:59 03:59 Intake Total 500 / 500 4121.75 / 4121.75 Output Total 0 / 0 800 / 800 Balance 500 / 500 4121.75 / 4121.75 -800 / -800 Lab / Micro Data Result Diagrams: 05/17/22 08:15 05/17/22 08:15 Labs: Laboratory Results - last 24 hr 05/16/22 03:05: Crossmatch See Detail 05/16/22 03:28: Crossmatch See Detail 05/16/22 03:28: Crossmatch See Detail 05/16/22 11:10: POC Glucose 163 H 05/16/22 13:25: Hgb 9.0 L, Hct 28.7 L 05/16/22 16:08: POC Glucose 179 H 05/16/22 19:22: Hgb 9.0 L, Hct 28.4 L 05/16/22 21:22: POC Glucose 213 H 05/17/22 01:48: Hgb 7.1 L, Hct 19.4 L 05/17/22 06:41: POC Glucose 274 H 05/17/22 08:15: WBC 12.8 H, RBC 2.77 L, Hgb 8.6 L, Hct 27.2 L, MCV 98.2 H D, MCH 31.0, MCHC 31.6 L, RDW Std Deviation 58.6 H, RDW Coeff of Petty 16.4 H, Plt Count 184, MPV 10.4, Immature Gran % (Auto) 1.300 H, Neut % (Auto) 82.7 H, Lymph % (Auto) 6.0 L, [place] % (Auto) 9.3, Eos % (Auto) 0.2, Baso % (Auto) 0.5, Absolute Neuts (auto) 10.6 H, Absolute Lymphs (auto) 0.77 L, Nucleated RBC % 0 05/17/22 08:15: Sodium 136, Potassium 7.8 H*, Chloride 109 H, Carbon Dioxide 22.0, Anion Gap 5, BUN 115 H*, Creatinine 2.99 H, Estim Creat Clear Calc 19.04, Est GFR (MDRD) Af Amer 26 L, Est GFR (MDRD) Non-Af 22 L, BUN/Creatinine Ratio 38.5 H, Glucose 284 H, Calcium 7.8 L Radiography Diagnostic Testing: Radiology Impression Chest X-Ray 05/17/22 04:40 IMPRESSION: 1. Cardiomegaly. 2. Small pleural effusions that were seen on the CT scan. 3. Mild patchy opacity left midlung similar to the prior exam may be due to edema or pneumonia. 4. No pneumothorax. Electronically Signed: Josep Garcia MD at 5:13 EDT , Rhythm Strip Rhythm Strip: A-fib Rate: 104 Physical Exam Narrative Const alert, oriented x3 and no apparent distress General Appearance: cooperative HEENT normocephalic and moist oral mucous membranes Eyes PERRL, EOMs intact bilaterally and conjunctivae normal Neck supple and no JVD Resp normal respiratory effort, no retractions and no use of accessory muscles Auscultation: diminished lung sounds; Negative for crackles, rales, rhonchi or wheezes Cardio regular rate, regular rhythm, S1 normal heart sound, S2 normal heart sound and no murmurs GI soft to palpation, non-tender and non-distended; Negative for hepatosplenomegaly Extremity Extremity Narrative: Bilateral extremities wrapped General Extremity: edema; Negative for clubbing or cyanosis Skin no rashes or lesions noted Neuro no focal motor deficits and no sensory deficits noted Psych affect normal Appearance: appropriate Assessment & Plan Assessment/Plan (1) Gastrointestinal bleeding: (2) Acute blood loss anemia: (3) Hemorrhagic shock: (4) Chronic kidney disease, stage IV (severe): PLAN: Plan 1. Acute upper GI bleed secondary to gastric ulcers/acute blood loss anemia with monitor shock ? Had an EGD which demonstrated gastric ulcers. These were treated ? Continue with PPI ? That he was recently started on Eliquis for new onset A. fib which has been discontinued, he was given PCC ? Had continued bleeding overnight so was transferred to the ICU ? We will need to proceed with colonoscopy however he does have some significant hyperkalemia today so he cannot undergo anesthesia so we will give him a slow prep ? Continue with n.p.o. status ? We will continue to monitor hemoglobin and transfuse as necessary ? Continue with octreotide drip 2. Chronic diastolic CHF with severe pulmonary hypertension/A. fib/HTN/HLD/morbid obesity ? We will hold his Eliquis for his new onset A. fib ? Given his hemorrhagic shock we will hold his Lasix and Aldactone ? He did complete antibiotic treatment for pneumonia ? Can resume his home medications when he is able to take p.o. ? BMI 57.2, discussed lifestyle modifications 3. DM2/SAQIB on CKD 3B ? Continue with insulin and make adjustments as necessary, he is currently n.p.o. ? His baseline creatinine is around 2.2-2.4 he was recently admitted with an SAQIB and his does appear with his GI bleeding that is SAQIB has returned with his creatinine now up close to 3 ? We will continue to monitor and continue with IV fluids DVT: SCDs Charges/Coding Visit Charges Inpatient E&M: 18621 Subs Hosp L2
[2022-05-17] MEDS: Insulin Lispro 100 UNIT/ML INSULN.PEN 10 UNIT SC (09:29)
--- NOTE | 2022-05-17 10:00 | RAD_ITS ---
STUDY: X-RAY CHEST REASON FOR EXAM: Male, 76 years old. Central Line placement TECHNIQUE: Single AP portable view of the chest. COMPARISON: MAY 17, 2022 at 433 AM FINDINGS: 1. There is a newly placed right IJ catheter with the tip in the proximal SVC 2. No change in mild pulmonary vascular congestion and perihilar edema of both lungs 3. No consolidation or pneumothorax is present 4. Trace left lower lobe pleural effusion reidentified 5. No change in moderate cardiomegaly 6. Stable visualized mediastinal and osseous structures There is no demonstrated abnormality of the visualized soft tissue structures of the upper abdomen. RAD/Chest 1 View (Portable) IMPRESSION: No change in mild chronic CHF Electronically Signed: Javier Baker MD at 10:53 EDT ,
[2022-05-17 10:45] LABS: Anion Gap 7 (5-15); BUN 118 mg/dL (7-18); BUN/Creat Ratio 39.5 RATIO (10-20); Calcium,Total 7.9 mg/dL (8.5-10.1); Chloride 109 mmol/L (98-107); Creatinine, Serum 2.99 mg/dL (0.70-1.30); EST Glomerular Filtration Rate 22 mL/min (>60); Est Glom Filt Rate - Afr Amer 26 mL/min (>60); Estimated Creatinine Clearance 19.04 ml/min; Glucose 278 mg/dL (74-106); Potassium 7.6 mmol/L (3.5-5.1); Sodium Level 136 mmol/L (136-145)
[2022-05-17] MEDS: Fluticasone 0.05% 1 SPRAY NASAL.SRY NASAL ×2 (11:42→22:05)
[2022-05-17] MEDS: Azelastine HCl NASAL.SRY 1 SPRAY NASAL ×2 (11:42→22:06)
[2022-05-17] MEDS: Sucralfate 1 GM Tablet PO ×2 (12:14→22:07)
--- NOTE | 2022-05-17 13:07 | NURSING ---
left IJ placed by Dr. Mccracken this morning at 1000
--- NOTE | 2022-05-17 15:26 | PCM.CONS.R ---
Assessment & Plan Assessment/Plan (1) Chronic kidney disease, stage IV (severe): (2) Acute kidney injury superimposed on CKD: PLAN: He has known history of CKD stage IIIb/IV. Baseline creatinine is around 1.8. Overnight significant decompensation. Hypotensive, GI bleed. Potassium has increased significantly. Urine output is not great. He did have contrast yesterday. Will need dialysis today in view of severe hyperkalemia. I called his son and they are aware of his renal failure. Patient has agreed to proceed with dialysis. Bedside dialysis catheter was attempted in the right femoral area. Unsuccessful after 2 attempts. The procedure was aborted. I called and spoke to Dr Severino who is on-call for surgery. He has kindly agreed to place a dialysis line. We will plan for dialysis after. (3) Hyperkalemia: PLAN: Already received medical treatment. Discussed with ICU attending HPI Consult Data Date of Consult: 05/17/22 HPI Narrative Reason for Consultation: SAQIB HPI Narrative: LUCRECIA VAZQUEZ, is a 76 M who presents to the hospital with GI bleed. He has known history of atrial fibrillation, was recently started on anticoagulation. Presented with GI bleed. Endoscopy showed bleeding ulcers. Overnight he had decompensation including severe anemia, worsening renal failure, hyperkalemia. Currently in ICU. Alert. Denies any new complaints. Breathing appears okay. [facility] Medical History Atrial fibrillation, new onset Chronic back pain Chronic obstructive pulmonary disease COPD (chronic obstructive pulmonary disease) Debility Diabetes Gout Heart failure with preserved ejection fraction Hyperlipidemia Hypertension Hypertension Lumbar canal stenosis Morbid obesity Type 2 diabetes mellitus Home Medications allopurinol 300 mg tablet 300 mg PO DAILY gout 01/04/15 [History Last Taken 11/16/16 06:00] aspirin 81 mg chewable tablet 81 mg PO DAILY@0800 heart health 01/04/15 [History Last Taken 11/16/16 06:00] metoprolol tartrate 50 mg tablet 100 mg PO BID heart/bloodpressure 01/04/15 [History Last Taken 12/08/16 06:30] vitamin B complex 1 ea PO DAILY supplement 10/24/16 [History Last Taken 11/16/16 06:00] cyclobenzaprine 10 mg tablet 5 mg PO BID muscle spasm 09/21/18 [History Last Taken Unknown] oxycodone-acetaminophen 5 mg-325 mg tablet 1 - 2 tab PO Q6H PRN PRN Pain 02/12/19 [History Last Taken Unknown] albuterol 90 mcg/actuation aerosol inhaler 2 mcg inhalation Q4H PRN PRN Shortness Of Breath Or Wheezing 05/08/22 [History Last Taken Unknown] azelastine-fluticasone 137 mcg-50 mcg/spray nasal spray 1 spray intranasal BID allergies 05/08/22 [History Last Taken Unknown] cetirizine 10 mg tablet 10 mg PO DAILY allergies 05/08/22 [History Last Taken Unknown] cholecalciferol (vitamin D3) 50 mcg (2,000 unit) capsule (Vitamin D3) 50 mcg PO DAILY suppliment 05/08/22 [History Last Taken Unknown] ezetimibe 10 mg tablet (Zetia) 10 mg PO DAILY cholesterol 05/08/22 [History Last Taken Unknown] gabapentin 100 mg tablet 100 mg PO TID neuropathy 05/08/22 [History Last Taken Unknown] insulin aspart U-100 100 unit/mL (3 mL) subcutaneous pen (Novolog Flexpen U-100 Insulin aspart) 10 unit subcut 4X/DAY diabetes 05/08/22 [History Last Taken Unknown] insulin glargine 100 unit-lixisenatide 33 mcg/mL subcutaneous pen (Soliqua 100/33) 55 unit subcut DAILY diabetes 05/08/22 [History Last Taken Unknown] losartan 100 mg tablet 100 mg PO DAILY heart/blood pressure 05/08/22 [History Last Taken Unknown] multivitamin 1 cap PO DAILY suppliement 05/08/22 [History Last Taken Unknown] nifedipine 60 mg tablet,extended release 24 hr 60 mg PO DAILY heart 05/08/22 [History Last Taken Unknown] oxybutynin chloride 10 mg tablet,extended release 24 hr (Ditropan XL) 10 mg PO DAILY bladder control 05/08/22 [History Last Taken Unknown] pravastatin 40 mg tablet 40 mg PO QHS cholesterol 05/08/22 [History Last Taken Unknown] spironolactone 25 mg tablet 25 mg PO DAILY diuretic 05/08/22 [History Last Taken Unknown] torsemide 20 mg tablet 30 mg PO DAILY water pill 05/08/22 [History Last Taken Unknown] apixaban 5 mg tablet (Eliquis) 5 mg PO BID blood thinner 05/13/22 [History Last Taken Unknown] Allergy/AdvReac Type Severity Reaction Status Date / Time grass pollen Allergy Hives Verified 05/16/22 02:49 Latex, Natural Rubber Allergy Unknown Verified 05/16/22 02:49 Social History household members: none Smoking Status: Former smoker alcohol intake: never substance use type: does not use ROS ROS Narrative Negative except above Physical Exam Narrative Alert awake oriented x 3 no obvious distress no pallor no icterus no JVD s1s2 no murmurs lungs clear abdomen soft no organomegaly no edema no cyanosis erwin + Const alert and oriented x3 General Appearance: cooperative Orientation / Consciousness: awake HEENT normocephalic Head and Scalp: normal to inspection Eyes General Eye: normal appearance of both eyes Lab / Micro Data Result Diagrams: 05/17/22 08:15 05/17/22 10:20 Labs: Laboratory Results - last 24 hr 05/16/22 03:28: Crossmatch See Detail 05/16/22 03:28: Crossmatch See Detail 05/16/22 16:08: POC Glucose 179 H 05/16/22 19:22: Hgb 9.0 L, Hct 28.4 L 05/16/22 21:22: POC Glucose 213 H 05/17/22 01:48: Hgb 7.1 L, Hct 19.4 L 05/17/22 06:41: POC Glucose 274 H 05/17/22 08:15: WBC 12.8 H, RBC 2.77 L, Hgb 8.6 L, Hct 27.2 L, MCV 98.2 H D, MCH 31.0, MCHC 31.6 L, RDW Std Deviation 58.6 H, RDW Coeff of Petty 16.4 H, Plt Count 184, MPV 10.4, Immature Gran % (Auto) 1.300 H, Neut % (Auto) 82.7 H, Lymph % (Auto) 6.0 L, [place] % (Auto) 9.3, Eos % (Auto) 0.2, Baso % (Auto) 0.5, Absolute Neuts (auto) 10.6 H, Absolute Lymphs (auto) 0.77 L, Nucleated RBC % 0 05/17/22 08:15: Sodium 136, Potassium 7.8 H*, Chloride 109 H, Carbon Dioxide 22.0, Anion Gap 5, BUN 115 H*, Creatinine 2.99 H, Estim Creat Clear Calc 19.04, Est GFR (MDRD) Af Amer 26 L, Est GFR (MDRD) Non-Af 22 L, BUN/Creatinine Ratio 38.5 H, Glucose 284 H, Calcium 7.8 L 05/17/22 10:20: Sodium 136, Potassium 7.6 H*, Chloride 109 H, Carbon Dioxide 20.0 L, Anion Gap 7, BUN 118 H*, Creatinine 2.99 H, Estim Creat Clear Calc 19.04, Est GFR (MDRD) Af Amer 26 L, Est GFR (MDRD) Non-Af 22 L, BUN/Creatinine Ratio 39.5 H, Glucose 278 H, Calcium 7.9 L Rhythm Strip Rhythm Strip: A-fib Rate: 104 Radiology Impression Chest X-Ray 05/17/22 04:40 IMPRESSION: 1. Cardiomegaly. 2. Small pleural effusions that were seen on the CT scan. 3. Mild patchy opacity left midlung similar to the prior exam may be due to edema or pneumonia. 4. No pneumothorax. Electronically Signed: Josep Garcia MD at 5:13 EDT , Chest X-Ray 05/17/22 10:00 IMPRESSION: No change in mild chronic CHF Electronically Signed: Javier Baker MD at 10:53 EDT ,
[2022-05-17 15:29] LABS: Hematocrit 27.1 % (40-54); Hemoglobin 8.7 g/dL (13.0-16.5)
--- NOTE | 2022-05-17 16:29 | NURSING ---
Dr. Natarajan in to see patient and attempted a temporary dialysis cath in the right femoral. Dr. Severino then arrived and got a right dialysis cath in the Right IJ.
[2022-05-17] MEDS: Heparin 10,000 UNITS/10 ML Vial 2600 UNITS IV (16:33)
--- NOTE | 2022-05-17 16:33 | PRO.PCM_ITS ---
Procedure Report Date of Procedure: 05/17/22 Procedure name: Insertion of temporary hemodialysis catheter (12 Scottish X 16 cm straight) Procedure detail: After obtaining consent from patient, patient was positioned in Trendelenburg to facilitate filling of the central veins of the neck. The head was positioned to the left to allow access to the right neck. The right internal jugular vein was localized using bedside ultrasound. It appeared to be widely patent and this was confirmed with color Doppler. The superficial tissues of the neck were then anesthetized with a local block using 5 mL Xylocaine. Under direct ultrasound guidance the vein was accessed with return of dark red blood. Using a Seldinger technique a guidewire was placed without difficulty. The guidewire tract was then opened at the skin with an 11 blade and serially dilated. Then the hemodialysis catheter was inserted into the vein. Both ports aspirated and flushed with ease. To maintain patency, 1.3 mL heparinized saline were used to lock each port. The catheter was then sewn in using 0 silk in three-point fixation. Insertion site was cleaned and a chlorhexidine dressing was placed about the catheter to maintain sterility. A post procedure chest x-ray was obtained to verify the position of the catheter. Complications: None EBL: 20 mL
[2022-05-17 16:50] LABS: Bedside Glucose 256 mg/dL (74-106)
--- NOTE | 2022-05-17 16:54 | RAD_ITS ---
STUDY: X-RAY CHEST REASON FOR EXAM: Male, 76 years old. Temporary dialysis catheter placement. TECHNIQUE: Single frontal view of the chest. COMPARISON: Earlier in the day. FINDINGS: Right internal jugular dialysis catheter placed with tip projected over the mid- SVC. Stable left internal jugular catheter with tip projected over the mid-SVC The lungs are clear and expanded. There is no demonstrated pleural abnormality. Cardiomegaly unchanged. Normal mediastinum and navi. Normal visualized pulmonary arteries. Normal visualized aortic arch and descending thoracic aorta. Normal visualized thoracic spine. Normal visualized ribs, clavicles, and shoulders. There is no demonstrated abnormality of the visualized soft tissue structures of the upper abdomen. RAD/CXR for Line Placement IMPRESSION: Uncomplicated placement of right internal jugular temporary dialysis catheter as described. No acute finding. Electronically Signed: James Lafleur MD at 18:06 EDT ,
--- NOTE | 2022-05-17 21:20 | DIALYSIS ---
Hemodialysis completed 2 hours on a 1 K bath. Fluid removed was 1 liter. Patient tolerated well.
[2022-05-17 21:51] LABS: Hematocrit 25.5 % (40-54); Hemoglobin 8.5 g/dL (13.0-16.5)
[2022-05-18] VITALS (34 sets, daily range): BP systolic 87–160; BP diastolic 32–129; PULSE 91–118; RESP 12–21; TEMP 36.1–36.9; O2SAT 91–100
[2022-05-18] MEDS: Acetaminophen 325 MG Tablet 650 MG PO ×4 (01:26→22:12)
[2022-05-18 03:46] LABS: Bedside Glucose 255 mg/dL (74-106)
[2022-05-18 04:07] LABS: Absolute Lymphocyte Count 1.02 X10^3/uL (0.83-4.51); Absolute Neutrophil Count 9.1 X10^3/uL (2.0-7.7); Basophil# 0.06 X10^3/uL; Basophil% 0.5 % (0-1); Eosinophil# 0.09 X10^3/uL; Eosinophils% 0.8 % (0-5); Hematocrit 24.9 % (40-54); Hemoglobin 7.8 g/dL (13.0-16.5); Lymphocyte # 1.02 X10^3/ul (0.83-4.51); Lymphocyte % 8.8 % (19-41); Mean Corp Hgb Conc 31.3 g/dL (32-36); Mean Corpuscular Hgb 30.2 pg (27.0-32.0); Mean Corpuscular Volume 96.5 fL (80-94); Mean Platelet Vol. 10.1 fl (6.2-12.0); Monocyte# 1.22 X10^3/uL; Monocyte% 10.5 % (0-10); NRBC Flagged by Analyzer 0.2 % (0-5); Neutrophil # 9.05 X10^3/uL (2.7-7.7); Platelet Count 145 K/mm3 (150-450); RBC Distribution Width CV 17.1 % (11.6-14.6); RBC Distribution Width SD 59.8 fl (35.1-43.9); Red Blood Count 2.58 M/mm3 (4.6-6.2); White Blood Count 11.6 K/mm3 (4.4-11.0)
[2022-05-18] MEDS: Menthol/Lanolin/Calamine/Znox 113 GM Tube 1 APPLIC TOPICAL ×3 (04:17→21:05)
[2022-05-18] MEDS: Nystatin Powder 15gm Bottle 1 APPLIC TOPICAL ×3 (04:18→21:06)
[2022-05-18 04:37] LABS: Anion Gap 8 (5-15); BUN 87 mg/dL (7-18); BUN/Creat Ratio 31.5 RATIO (10-20); Calcium,Total 7.9 mg/dL (8.5-10.1); Chloride 106 mmol/L (98-107); Creatinine, Serum 2.76 mg/dL (0.70-1.30); EST Glomerular Filtration Rate 24 mL/min (>60); Est Glom Filt Rate - Afr Amer 29 mL/min (>60); Estimated Creatinine Clearance 20.62 ml/min; Glucose 255 mg/dL (74-106); Sodium Level 137 mmol/L (136-145)
--- NOTE | 2022-05-18 06:21 | PCM.PN.INT ---
Assessment & Plan Assessment/Plan (1) Acute blood loss anemia: (2) Gastrointestinal bleeding: (3) Hemorrhagic shock: (4) Chronic kidney disease, stage IV (severe): PLAN: Plan RECOMMENDATIONS: 1. Repeat dialysis per nephrology 2. Hold on volume resuscitation if possible 3. Await GI recommendations 4. Hold on transfusion for now 5. Hold on basal insulin pending GI p.o. intake recommendations IMPRESSIONS: 1. Hemorrhagic shock secondary to acute blood loss anemia secondary to lower GI bleed Clinical suspicion for diverticular bleed leading to the current presentation. Patient was on anticoagulation secondary to atrial fibrillation. CT angio of the abdomen did not show a source of bleeding. Patient has not had gross hematochezia since yesterday. Patient has been able to be taken off of pressors. Hemoglobin close to 8 this morning, but given lack of repeat bleeding and normotension will hold on transfusions for now. Will likely monitor in the intensive care unit given hyperkalemia. Await GI recommendations on timing of colonoscopy 2. CKD stage IV Patient with significantly elevated BUN, likely secondary to problem #1. Patient with significant hyperkalemia leading to placement of temporary dialysis line with a urgent dialysis overnight. Would recommend holding additional IV fluids if possible. Continue to monitor urine output. 3. Chronic diastolic CHF/diabetes mellitus type 2/morbid obesity/probable ANTHONY/hypertension/recent pneumonia Complicates care, management, recovery and prognosis. Patient does have some superficial ulcers, but no significant wounds. We will need to watch closely. Basal insulin will be held given n.p.o. status. Hold antihypertensives. Subjective Subjective Yesterday's events were reviewed in detail. Patient did have a hemodialysis catheter placed by surgery and received urgent hemodialysis overnight with 1 L removed. Patient was subsequently able to be taken off of Levophed. Patient's mentation is much improved today. Nursing reports patient has dark stool, but no bright red blood has been noted. Did call blood bank and there are 4 available units (not specifically on hold for this patient) that could be obtained urgently if needed Objective Data Objective Data Vital Signs: Vital Signs Temp Pulse Resp BP Pulse Ox 36.3 C L 102 H 14 87/72 L 100 05/18/22 05:00 05/18/22 05:00 05/18/22 05:00 05/18/22 05:00 05/18/22 05:00 Oxygen Flow Rate (L/min) 2 Oxygen Delivery Method Nasal Cannula Weight: 185.1 kg Body Mass Index (BMI) 57.3 Intake & Output: Intake and Output for Last 24 Hours 05/16/22 05/17/22 05/18/22 23:59 23:59 23:59 Intake Total 3191.75 / 3311.75 2259.17 / 2279.17 108.83 / 108.83 Output Total 1918 / 2968 1050 / 1050 Balance 3191.75 / 3311.75 341.17 / -688.83 -941.17 / -941.17 Lab / Micro Data Attestation: I reviewed the patient's lab results. Result Diagrams: 05/18/22 04:00 05/18/22 04:00 Labs: Laboratory Results - last 24 hr 05/16/22 03:28: Crossmatch See Detail 05/17/22 06:41: POC Glucose 274 H 05/17/22 08:15: WBC 12.8 H, RBC 2.77 L, Hgb 8.6 L, Hct 27.2 L, MCV 98.2 H D, MCH 31.0, MCHC 31.6 L, RDW Std Deviation 58.6 H, RDW Coeff of Petty 16.4 H, Plt Count 184, MPV 10.4, Immature Gran % (Auto) 1.300 H, Neut % (Auto) 82.7 H, Lymph % (Auto) 6.0 L, [place] % (Auto) 9.3, Eos % (Auto) 0.2, Baso % (Auto) 0.5, Absolute Neuts (auto) 10.6 H, Absolute Lymphs (auto) 0.77 L, Nucleated RBC % 0 05/17/22 08:15: Sodium 136, Potassium 7.8 H*, Chloride 109 H, Carbon Dioxide 22.0, Anion Gap 5, BUN 115 H*, Creatinine 2.99 H, Estim Creat Clear Calc 19.04, Est GFR (MDRD) Af Amer 26 L, Est GFR (MDRD) Non-Af 22 L, BUN/Creatinine Ratio 38.5 H, Glucose 284 H, Calcium 7.8 L 05/17/22 10:20: Sodium 136, Potassium 7.6 H*, Chloride 109 H, Carbon Dioxide 20.0 L, Anion Gap 7, BUN 118 H*, Creatinine 2.99 H, Estim Creat Clear Calc 19.04, Est GFR (MDRD) Af Amer 26 L, Est GFR (MDRD) Non-Af 22 L, BUN/Creatinine Ratio 39.5 H, Glucose 278 H, Calcium 7.9 L 05/17/22 11:57: POC Glucose 255 H 05/17/22 15:00: Hgb 8.7 L, Hct 27.1 L 05/17/22 16:37: POC Glucose 256 H 05/17/22 21:26: Hgb 8.5 L, Hct 25.5 L 05/18/22 04:00: WBC 11.6 H, RBC 2.58 L, Hgb 7.8 L, Hct 24.9 L, MCV 96.5 H, MCH 30.2, MCHC 31.3 L, RDW Std Deviation 59.8 H, RDW Coeff of Petty 17.1 H, Plt Count 145 L, MPV 10.1, Immature Gran % (Auto) 1.400 H, Neut % (Auto) 78.0 H, Lymph % (Auto) 8.8 L, [place] % (Auto) 10.5 H, Eos % (Auto) 0.8, Baso % (Auto) 0.5, Absolute Neuts (auto) 9.1 H, Absolute Lymphs (auto) 1.02, Nucleated RBC % 0.2 05/18/22 04:00: Sodium 137, Potassium 6.0 H*, Chloride 106, Carbon Dioxide 23.0, Anion Gap 8, BUN 87 H, Creatinine 2.76 H, Estim Creat Clear Calc 20.62, Est GFR (MDRD) Af Amer 29 L, Est GFR (MDRD) Non-Af 24 L, BUN/Creatinine Ratio 31.5 H, Glucose 255 H, Calcium 7.9 L Radiography Diagnostic Testing: Radiology Impression Chest X-Ray 05/17/22 10:00 IMPRESSION: No change in mild chronic CHF Electronically Signed: Javier Baker MD at 10:53 EDT Reading Location ID and State: [address] [place] [address] , Service support , Chest X-Ray 05/17/22 16:54 IMPRESSION: Uncomplicated placement of right internal jugular temporary dialysis catheter as described. No acute finding. Electronically Signed: James Lafleur MD at 18:06 EDT , Rhythm Strip Rhythm Strip: A-fib Rate: 104 Physical Exam Const alert, oriented x3 and no apparent distress Constitutional Narrative: Much more interactive today General Appearance: cooperative HEENT normocephalic and head/scalp atraumatic HEENT Narrative: Dialysis line in right neck, central line and left neck Mouth: oral and palatal mucosa normal Eyes PERRL, EOMs intact bilaterally and conjunctivae normal Eyes Narrative: No icterus Neck Neck Narrative: Significant redundant tissue noted Resp normal respiratory effort, no retractions, no use of accessory muscles and clear to auscultation bilaterally Cardio regular rate, regular rhythm, S1 normal heart sound, S2 normal heart sound, no murmurs, no rub and no gallops GI normal to inspection, nondistended, normoactive bowel sounds Extremity Extremity Narrative: Bilateral lymphedema. Generalized nonpitting edema noted. Lacks left elbow General Extremity: Negative for clubbing Skin Skin Narrative: Sporadic ecchymotic areas noted. Some superficial ulcers noted. Neuro oriented x3, CN's II-XII intact bilaterally and moves all extremities Sensorium / Orientation: awake and alert Speech: speech normal Psych affect normal Charges/Coding Visit Charges Inpatient E&M: 53904 Subs Hosp L3
[2022-05-18 07:35] LABS: Bedside Glucose 257 mg/dL (74-106)
[2022-05-18] MEDS: Insulin Lispro 100 UNIT/ML INSULN.PEN SC ×3 (08:29→17:04)
[2022-05-18] MEDS: Azelastine HCl NASAL.SRY 1 SPRAY NASAL ×2 (08:30→21:05)
[2022-05-18] MEDS: Sucralfate 1 GM Tablet PO ×2 (09:37→21:06)
[2022-05-18] MEDS: Fluticasone 0.05% 1 SPRAY NASAL.SRY NASAL ×2 (09:37→21:05)
--- NOTE | 2022-05-18 10:12 | PN.HOSP_ITS ---
Subjective Subjective Doing better today, overnight he had his first hemodialysis secondary to his hyperkalemia. He did have a hemodialysis catheter placed by surgery. Continues to have some dark stools but no bright red blood was noted Objective Data Objective Data Vital Signs: Vital Signs Temp Pulse Resp BP Pulse Ox 97.5 F L 105 H 18 144/61 H 100 05/18/22 08:00 05/18/22 08:00 05/18/22 08:00 05/18/22 08:00 05/18/22 08:05 Oxygen Flow Rate (L/min) 2 Oxygen Delivery Method Nasal Cannula Weight: 408 lb 1.21 oz Body Mass Index (BMI) 57.3 Intake & Output: Intake and Output for Last 24 Hours 05/17/22 05/18/22 05/19/22 03:59 03:59 03:59 Intake Total 4121.75 / 4121.75 938.00 / 938.00 Output Total 0 / 0 2968 / 2968 250 / 250 Balance 4121.75 / 4121.75 -2030.00 / -2030.00 -230 / -230 Lab / Micro Data Result Diagrams: 05/18/22 04:00 05/18/22 04:00 Labs: Laboratory Results - last 24 hr 05/16/22 03:28: Crossmatch See Detail 05/17/22 10:20: Sodium 136, Potassium 7.6 H*, Chloride 109 H, Carbon Dioxide 20.0 L, Anion Gap 7, BUN 118 H*, Creatinine 2.99 H, Estim Creat Clear Calc 19.04, Est GFR (MDRD) Af Amer 26 L, Est GFR (MDRD) Non-Af 22 L, BUN/Creatinine Ratio 39.5 H, Glucose 278 H, Calcium 7.9 L 05/17/22 11:57: POC Glucose 255 H 05/17/22 15:00: Hgb 8.7 L, Hct 27.1 L 05/17/22 16:37: POC Glucose 256 H 05/17/22 21:26: Hgb 8.5 L, Hct 25.5 L 05/18/22 04:00: WBC 11.6 H, RBC 2.58 L, Hgb 7.8 L, Hct 24.9 L, MCV 96.5 H, MCH 30.2, MCHC 31.3 L, RDW Std Deviation 59.8 H, RDW Coeff of Petty 17.1 H, Plt Count 145 L, MPV 10.1, Immature Gran % (Auto) 1.400 H, Neut % (Auto) 78.0 H, Lymph % (Auto) 8.8 L, [place] % (Auto) 10.5 H, Eos % (Auto) 0.8, Baso % (Auto) 0.5, Absolute Neuts (auto) 9.1 H, Absolute Lymphs (auto) 1.02, Nucleated RBC % 0.2 05/18/22 04:00: Sodium 137, Potassium 6.0 H*, Chloride 106, Carbon Dioxide 23.0, Anion Gap 8, BUN 87 H, Creatinine 2.76 H, Estim Creat Clear Calc 20.62, Est GFR (MDRD) Af Amer 29 L, Est GFR (MDRD) Non-Af 24 L, BUN/Creatinine Ratio 31.5 H, Glucose 255 H, Calcium 7.9 L 05/18/22 07:29: POC Glucose 257 H Radiography Diagnostic Testing: Radiology Impression Chest X-Ray 05/17/22 10:00 IMPRESSION: No change in mild chronic CHF Electronically Signed: Javier Baker MD at 10:53 EDT , Chest X-Ray 05/17/22 16:54 IMPRESSION: Uncomplicated placement of right internal jugular temporary dialysis catheter as described. No acute finding. Electronically Signed: James Lafleur MD at 18:06 EDT , Rhythm Strip Rhythm Strip: A-fib Rate: 104 Physical Exam Narrative Const alert, oriented x3 and no apparent distress General Appearance: cooperative HEENT normocephalic and moist oral mucous membranes Eyes PERRL, EOMs intact bilaterally and conjunctivae normal Neck supple and no JVD Resp normal respiratory effort, no retractions and no use of accessory muscles Auscultation: diminished lung sounds; Negative for crackles, rales, rhonchi or wheezes Cardio regular rate, regular rhythm, S1 normal heart sound, S2 normal heart sound and no murmurs GI soft to palpation, non-tender and non-distended; Negative for hepatosplenomegaly Extremity Extremity Narrative: Bilateral extremities wrapped General Extremity: edema; Negative for clubbing or cyanosis Skin no rashes or lesions noted Neuro no focal motor deficits and no sensory deficits noted Psych affect normal Appearance: appropriate Assessment & Plan Assessment/Plan (1) Gastrointestinal bleeding: (2) Acute blood loss anemia: (3) Hemorrhagic shock: (4) Chronic kidney disease, stage IV (severe): PLAN: Plan 1. Acute upper GI bleed secondary to gastric ulcers/acute blood loss anemia with monitor shock ? Had an EGD which demonstrated gastric ulcers. These were treated ? Continue with PPI ? That he was recently started on Eliquis for new onset A. fib which has been discontinued, he was given PCC ? No more bright red blood has been noticed, hemoglobin is at 7.8 ? Surgery placed dialysis catheter and he underwent dialysis last night, likely repeat dialysis today. Potassium is better ? Continue with n.p.o. status ? We will continue to monitor hemoglobin and transfuse as necessary ? Continue with octreotide drip ? Off of Levophed 2. Chronic diastolic CHF with severe pulmonary hypertension/A. fi b/HTN/HLD/morbid obesity ? We will hold his Eliquis for his new onset A. fib ? Given his hemorrhagic shock we will hold his Lasix and Aldactone ? He did complete antibiotic treatment for pneumonia ? Can resume his home medications when he is able to take p.o. ? BMI 57.2, discussed lifestyle modifications 3. DM2/SAQIB on CKD 3B ? Continue with insulin and make adjustments as necessary, he is currently n.p.o. ? His baseline creatinine is around 2.2-2.4 he was recently admitted with an SAQIB and his does appear with his GI bleeding that is SAQIB has returned with his creatinine now up close to 3, he did have hyperkalemia symptoms also started on temporary dialysis DVT: SCDs Charges/Coding Visit Charges Inpatient E&M: 41463 Subs Hosp L2
[2022-05-18 11:31] LABS: Bedside Glucose 236 mg/dL (74-106)
--- NOTE | 2022-05-18 13:23 | DIALYSIS ---
Hemodialysis tx completed x 2.5 hours without complications. Pt tolerated tx well, fluid removed 1,000ml. Vitals stable post tx. Verbal report given to JONATHON Uriarte post tx.
[2022-05-18 14:28] LABS: Hematocrit 23.5 % (40-54); Hemoglobin 7.5 g/dL (13.0-16.5)
[2022-05-18 17:10] LABS: Bedside Glucose 225 mg/dL (74-106)
[2022-05-18] MEDS: Sodium Chloride 0.65% 1 SPRAY SPRAY.BTL 2 SPRAY NASAL (18:56)
[2022-05-18 21:23] LABS: Hematocrit 26.1 % (40-54); Hemoglobin 8.4 g/dL (13.0-16.5)
[2022-05-18 21:25] LABS: Bedside Glucose 224 mg/dL (74-106)
[2022-05-18] MEDS: 0.9% Saline Lock 10 ML Syringe IV (22:12)
[2022-05-19] VITALS (20 sets, daily range): BP systolic 128–175; BP diastolic 40–99; PULSE 74–96; RESP 13–27; TEMP 36.3–36.7; O2SAT 93–100; BMI 57.3
[2022-05-19 03:28] LABS: Hematocrit 25.6 % (40-54); Hemoglobin 8.3 g/dL (13.0-16.5); Mean Corp Hgb Conc 32.4 g/dL (32-36); Mean Corpuscular Hgb 31.2 pg (27.0-32.0); Mean Corpuscular Volume 96.2 fL (80-94); Mean Platelet Vol. 10.2 fl (6.2-12.0); Platelet Count 118 K/mm3 (150-450); RBC Distribution Width CV 17.1 % (11.6-14.6); RBC Distribution Width SD 59.1 fl (35.1-43.9); Red Blood Count 2.66 M/mm3 (4.6-6.2); White Blood Count 8.7 K/mm3 (4.4-11.0)
[2022-05-19 03:29] LABS: Anion Gap 9 (5-15); BUN 55 mg/dL (7-18); BUN/Creat Ratio 24.2 RATIO (10-20); Calcium,Total 7.6 mg/dL (8.5-10.1); Chloride 101 mmol/L (98-107); Creatinine, Serum 2.27 mg/dL (0.70-1.30); EST Glomerular Filtration Rate 30 mL/min (>60); Est Glom Filt Rate - Afr Amer 36 mL/min (>60); Estimated Creatinine Clearance 25.07 ml/min; Glucose 250 mg/dL (74-106); Potassium 4.4 mmol/L (3.5-5.1); Sodium Level 135 mmol/L (136-145)
[2022-05-19] MEDS: 0.9% Saline Lock 10 ML Syringe IV (03:49)
[2022-05-19] MEDS: Acetaminophen 325 MG Tablet 650 MG PO ×3 (03:49→15:12)
[2022-05-19] MEDS: Nystatin Powder 15gm Bottle 1 APPLIC TOPICAL ×3 (04:54→21:05)
[2022-05-19] MEDS: Sodium Chloride 0.65% 1 SPRAY SPRAY.BTL 2 SPRAY NASAL (04:54)
[2022-05-19] MEDS: Menthol/Lanolin/Calamine/Znox 113 GM Tube 1 APPLIC TOPICAL ×3 (04:54→21:07)
--- NOTE | 2022-05-19 06:24 | PCM.PN.INT ---
Assessment & Plan Assessment/Plan (1) Acute blood loss anemia: PLAN: Plan RECOMMENDATIONS: 1. Continue octreotide and Protonix per GI recommendations. 2. Continue to monitor blood counts and transfuse if hemoglobin drops below 7 g/dL. 3. Additional endoscopic evaluation per GI recommendations. 4. Encourage incentive spirometer use while in bed and mobilize patient as tolerated. IMPRESSIONS: 1. Acute blood loss anemia The patient presented with anemia requiring transfusion of blood products. He subsequently underwent upper endoscopy which revealed oozing gastric ulcers, which was treated with a heater probe. The patient has been maintained on Protonix, with GI following for additional recommendations. Hemoglobin is stable this morning at 8.3 g/dL. Plan to continue to monitor blood counts and transfuse if hemoglobin is below 7 g/dL. It is unclear as to whether the patient will require lower endoscopy during this hospital admission or if this can be completed on an outpatient basis. 2. Acute on chronic kidney disease Likely secondary to hypotension which developed in the setting of #1. This has since resolved. The patient remains hemodynamically stable. The patient is being managed with intermittent dialysis per nephrology recommendations. 3. Chronic heart failure with preserved ejection fraction/diabetes mellitus/morbid obesity/suspected sleep apnea/hypertension/atrial fibrillation Complicates care, management, recovery and prognosis. Continue home medications as indicated. This note was generated with [employer] dictation software. It may contain incorrect words, spelling, and punctuation that were not noted in checking the note before signing. Subjective Subjective The patient was seen and examined at the bedside this morning. Events from the last 24 hours have been reviewed. The patient is currently afebrile, hemodynamically stable and maintaining appropriate oxygen saturations on 2 L/min via nasal cannula. Nursing staff did report that the patient's diet was advanced to clears yesterday, after which time, he had a large maroon stool and was subsequently transitioned back to n.p.o. status. The patient is currently documented to be overall net +2.6 L for the hospitalization. The patient has been transfused a total of 8 units of packed red blood cells throughout this hospitalization. He did tolerate dialysis yesterday. The patient remains in atrial fibrillation. Hemoglobin this morning was noted to be 8.3 g/dL. Platelet count is low at 118,000. Objective Data Objective Data The patient's most recent lab work, culture data and imaging studies have all been personally reviewed. Surface echocardiogram dated May 07 demonstrated moderate concentric LVH with an ejection fraction of 55%. Right ventricular systolic pressure was estimated to be 71 mmHg. Respiratory viral panel was negative. COVID antigen testing was negative. Vital Signs: Vital Signs Temp Pulse Resp BP Pulse Ox 97.6 F L 77 16 135/68 H 95 05/19/22 06:00 05/19/22 06:00 05/19/22 06:00 05/19/22 06:00 05/19/22 06:00 Oxygen Flow Rate (L/min) 2 Oxygen Delivery Method Nasal Cannula Weight: 407 lb 10.155 oz Body Mass Index (BMI) 57.3 Intake & Output: Intake and Output for Last 24 Hours 05/17/22 05/18/22 05/19/22 23:59 23:59 23:59 Intake Total 2259.17 / 2279.17 1889.75 / 1889.75 45 / 45 Output Total 1918 / 2968 2725 / 2725 150 / 150 Balance 341.17 / -688.83 -835.25 / -835.25 -105 / -105 Lab / Micro Data Attestation: I reviewed the patient's lab results. Result Diagrams: 05/19/22 03:09 05/19/22 03:09 Labs: Laboratory Results - last 24 hr 05/16/22 03:05: Crossmatch See Detail 05/16/22 03:28: Crossmatch See Detail 05/18/22 03:09: WBC Cancelled, Corrected WBC Cancelled, RBC Cancelled, Hgb Cancelled, Hct Cancelled, MCV Cancelled, MCH Cancelled, MCHC Cancelled, RDW Std Deviation Cancelled, RDW Coeff of Petty Cancelled, Plt Count Cancelled, MPV Cancelled, Diff Path Review Cancelled 05/18/22 04:00: MCV 96.5 H, MCHC 31.3 L 05/18/22 07:29: POC Glucose 257 H 05/18/22 11:19: POC Glucose 236 H 05/18/22 14:22: Hgb 7.5 L, Hct 23.5 L 05/18/22 17:03: POC Glucose 225 H 05/18/22 21:12: Hgb 8.4 L, Hct 26.1 L 05/18/22 21:12: Blood Type O POSITIVE, Antibody Screen NEGATIVE, Crossmatch See Detail 05/18/22 21:18: POC Glucose 224 H 05/19/22 03:09: Sodium 135 L, Potassium 4.4, Chloride 101, Carbon Dioxide 25.0, Anion Gap 9, BUN 55 H, Creatinine 2.27 H, Estim Creat Clear Calc 25.07, Est GFR (MDRD) Af Amer 36 L, Est GFR (MDRD) Non-Af 30 L, BUN/Creatinine Ratio 24.2 H, Glucose 250 H, Calcium 7.6 L 05/19/22 03:09: WBC 8.7, RBC 2.66 L, Hgb 8.3 L, Hct 25.6 L, MCV 96.2 H, MCH 31.2, MCHC 32.4, RDW Std Deviation 59.1 H, RDW Coeff of Petty 17.1 H, Plt Count 118 L, MPV 10.2 Rhythm Strip Rhythm Strip: A-fib Rate: 104 Physical Exam Const alert and no apparent distress General Appearance: cooperative Nutritional Appearance: morbidly obese HEENT normocephalic, head/scalp atraumatic and moist oral mucous membranes Eyes PERRL, EOMs intact bilaterally and conjunctivae normal Neck supple General: trachea midline and CVC in place Chest inspection of chest normal Resp normal respiratory effort Auscultation: Negative for rales, rhonchi or wheezes Cardio S1 normal heart sound and S2 normal heart sound Rhythm: abnormal rhythm GI normal to inspection, nondistended, normoactive bowel sounds Extremity General Extremity: edema; Negative for clubbing Skin no rashes or lesions noted Neuro CN's II-XII intact bilaterally and no focal motor deficits Psych cooperative and affect normal Charges/Coding Visit Charges Inpatient E&M: 20756 Subs Hosp L3
[2022-05-19 07:46] LABS: Bedside Glucose 260 mg/dL (74-106)
[2022-05-19] MEDS: Insulin Lispro 100 UNIT/ML INSULN.PEN SC ×3 (07:47→16:52)
[2022-05-19] MEDS: Azelastine HCl NASAL.SRY 1 SPRAY NASAL ×2 (07:51→21:05)
[2022-05-19] MEDS: Sucralfate 1 GM Tablet PO ×2 (07:51→21:06)
[2022-05-19] MEDS: Fluticasone 0.05% 1 SPRAY NASAL.SRY NASAL ×2 (07:51→21:06)
[2022-05-19 09:04] LABS: Hepatitis B Surface Antigen Non-Reactive (Nonreactive)
[2022-05-19 09:33] LABS: Magnesium 2.3 mg/dL (1.6-2.6); Phosphorus 3.6 mg/dL (2.5-4.9)
--- NOTE | 2022-05-19 10:06 | PN.HOSP_ITS ---
Subjective Subjective Had some maroon stools overnight and was transfused another 2 units. He did tolerate dialysis yesterday. Objective Data Objective Data Vital Signs: Vital Signs Temp Pulse Resp BP Pulse Ox 97.6 F L 86 16 153/54 H 94 05/19/22 07:59 05/19/22 09:00 05/19/22 09:00 05/19/22 09:00 05/19/22 09:00 Oxygen Flow Rate (L/min) 1 Oxygen Delivery Method Nasal Cannula Weight: 407 lb 10.155 oz Body Mass Index (BMI) 57.3 Intake & Output: Intake and Output for Last 24 Hours 05/18/22 05/19/22 05/20/22 03:59 03:59 03:59 Intake Total 938.00 / 938.00 1780.92 / 1780.92 435.67 / 435.67 Output Total 2968 / 2968 1675 / 1675 150 / 150 Balance -2030.00 / -2030.00 105.92 / 105.92 285.67 / 285.67 Lab / Micro Data Result Diagrams: 05/19/22 03:09 05/19/22 03:09 Labs: Laboratory Results - last 24 hr 05/16/22 03:05: Crossmatch See Detail 05/16/22 03:28: Crossmatch See Detail 05/17/22 21:26: Hep Bs Antigen Non-Reactive 05/18/22 03:09: WBC Cancelled, Corrected WBC Cancelled, RBC Cancelled, Hgb Cancelled, Hct Cancelled, MCV Cancelled, MCH Cancelled, MCHC Cancelled, RDW Std Deviation Cancelled, RDW Coeff of Petty Cancelled, Plt Count Cancelled, MPV Can celled, Diff Path Review Cancelled 05/18/22 04:00: MCV 96.5 H, MCHC 31.3 L 05/18/22 11:19: POC Glucose 236 H 05/18/22 14:22: Hgb 7.5 L, Hct 23.5 L 05/18/22 17:03: POC Glucose 225 H 05/18/22 21:12: Hgb 8.4 L, Hct 26.1 L 05/18/22 21:12: Blood Type O POSITIVE, Antibody Screen NEGATIVE, Crossmatch See Detail 05/18/22 21:18: POC Glucose 224 H 05/19/22 03:09: Sodium 135 L, Potassium 4.4, Chloride 101, Carbon Dioxide 25.0, Anion Gap 9, BUN 55 H, Creatinine 2.27 H, Estim Creat Clear Calc 25.07, Est GFR (MDRD) Af Amer 36 L, Est GFR (MDRD) Non-Af 30 L, BUN/Creatinine Ratio 24.2 H, Glucose 250 H, Calcium 7.6 L 05/19/22 03:09: WBC 8.7, RBC 2.66 L, Hgb 8.3 L, Hct 25.6 L, MCV 96.2 H, MCH 31.2, MCHC 32.4, RDW Std Deviation 59.1 H, RDW Coeff of Petty 17.1 H, Plt Count 118 L, MPV 10.2 05/19/22 03:09: Phosphorus 3.6, Magnesium 2.3 05/19/22 07:41: POC Glucose 260 H Rhythm Strip Rhythm Strip: A-fib Rate: 104 Physical Exam Narrative Const alert, oriented x3 and no apparent distress General Appearance: cooperative HEENT normocephalic and moist oral mucous membranes Eyes PERRL, EOMs intact bilaterally and conjunctivae normal Neck supple and no JVD Resp normal respiratory effort, no retractions and no use of accessory muscles Auscultation: diminished lung sounds; Negative for crackles, rales, rhonchi or wheezes Cardio regular rate, abnormal rhythm, S1 normal heart sound, S2 normal heart sound and no murmurs GI soft to palpation, non-tender and non-distended; Negative for hepatosplenomegaly Extremity Extremity Narrative: Bilateral extremities wrapped General Extremity: edema; Negative for clubbing or cyanosis Skin no rashes or lesions noted Neuro no focal motor deficits and no sensory deficits noted Psych affect normal Appearance: appropriate Assessment & Plan Assessment/Plan (1) Gastrointestinal bleeding: (2) Acute blood loss anemia: (3) Hemorrhagic shock: (4) Chronic kidney disease, stage IV (severe): PLAN: Plan 1. Acute upper GI bleed secondary to gastric ulcers/acute blood loss anemia with monitor shock ? Had an EGD which demonstrated gastric ulcers. These were treated ? Continue with PPI ? That he was recently started on Eliquis for new onset A. fib which has been discontinued, he was given PCC ? No more bright red blood has been noticed, but he did have some maroon stools last night, hemoglobin is at 8.3 ? Surgery placed dialysis catheter and he underwent dialysis last night. Potassium is better ? Continue with n.p.o. status ? We will continue to monitor hemoglobin and transfuse as necessary ? Continue with octreotide drip ? Off of Levophed 2. Chronic diastolic CHF with severe pulmonary hypertension/A. fib/HTN/HLD/morbid obesity ? We will hold his Eliquis for his new onset A. fib ? Given his hemorrhagic shock we will hold his Lasix and Aldactone ? He did complete antibiotic treatment for pneumonia ? Can resume his home medications when he is able to take p.o. ? BMI 57.2, discussed lifestyle modifications 3. DM2/SAQIB on CKD 3B ? Continue with insulin and make adjustments as necessary, he is currently n.p.o. ? His baseline creatinine is around 2.2-2.4 he was recently admitted with an SAQIB and his does appear with his GI bleeding that is SAQIB has returned with his creatinine now up close to 3, he did have hyperkalemia symptoms also started on temporary dialysis DVT: SCDs Charges/Coding Visit Charges Inpatient E&M: 00340 Subs Hosp L2
--- NOTE | 2022-05-19 10:51 | WOUNDNOTE ---
casing splitter RN had changed the legs dressings early this am. Will leave in place. blisters to legs painful with dressing changes. will continue to follow.
[2022-05-19] MEDS: Insulin Glargine-YFGN 100 UNIT/ML Pen 10 UNIT SC (10:58)
[2022-05-19 11:05] LABS: Bedside Glucose 248 mg/dL (74-106)
--- NOTE | 2022-05-19 11:52 | PCM.PN.REN ---
Subjective Subjective No new complaints Objective Data Objective Data Vital Signs: Vital Signs Temp Pulse Resp BP Pulse Ox 97.8 F 84 18 137/45 H 100 05/19/22 11:00 05/19/22 11:05 05/19/22 11:00 05/19/22 11:00 05/19/22 11:00 Oxygen Flow Rate (L/min) 1 Oxygen Delivery Method Nasal Cannula Weight: 184.9 kg Body Mass Index (BMI) 57.3 Intake & Output: Intake and Output for Last 24 Hours 05/17/22 05/18/22 05/19/22 23:59 23:59 23:59 Intake Total 2259.17 / 2279.17 1889.75 / 1889.75 435.67 / 435.67 Output Total 1918 / 2968 2725 / 2725 350 / 350 Balance 341.17 / -688.83 -835.25 / -835.25 85.67 / 85.67 Lab / Micro Data Result Diagrams: 05/19/22 03:09 05/19/22 03:09 Labs: Laboratory Results - last 24 hr 05/16/22 03:05: Crossmatch See Detail 05/16/22 03:28: Crossmatch See Detail 05/17/22 21:26: Hep Bs Antigen Non-Reactive 05/18/22 03:09: WBC Cancelled, Corrected WBC Cancelled, RBC Cancelled, Hgb Cancelled, Hct Cancelled, MCV Cancelled, MCH Cancelled, MCHC Cancelled, RDW Std Deviation Cancelled, RDW Coeff of Petty Cancelled, Plt Count Cancelled, MPV Cancelled, Diff Path Review Cancelled 05/18/22 04:00: MCV 96.5 H, MCHC 31.3 L 05/18/22 14:22: Hgb 7.5 L, Hct 23.5 L 05/18/22 17:03: POC Glucose 225 H 05/18/22 21:12: Hgb 8.4 L, Hct 26.1 L 05/18/22 21:12: Blood Type O POSITIVE, Antibody Screen NEGATIVE, Crossmatch See Detail 05/18/22 21:18: POC Glucose 224 H 05/19/22 03:09: Sodium 135 L, Potassium 4.4, Chloride 101, Carbon Dioxide 25.0, Anion Gap 9, BUN 55 H, Creatinine 2.27 H, Estim Creat Clear Calc 25.07, Est GFR (MDRD) Af Amer 36 L, Est GFR (MDRD) Non-Af 30 L, BUN/Creatinine Ratio 24.2 H, Glucose 250 H, Calcium 7.6 L 05/19/22 03:09: WBC 8.7, RBC 2.66 L, Hgb 8.3 L, Hct 25.6 L, MCV 96.2 H, MCH 31.2, MCHC 32.4, RDW Std Deviation 59.1 H, RDW Coeff of Petty 17.1 H, Plt Count 118 L, MPV 10.2 05/19/22 03:09: Phosphorus 3.6, Magnesium 2.3 05/19/22 07:41: POC Glucose 260 H 05/19/22 10:57: POC Glucose 248 H Rhythm Strip Rhythm Strip: A-fib Rate: 104 Physical Exam Narrative Alert awake oriented x 3 no obvious distress no pallor no icterus no JVD s1s2 no murmurs lungs clear abdomen soft no organomegaly no edema no cyanosis erwin + Assessment & Plan Assessment/Plan (1) Gastrointestinal bleeding: (2) Acute blood loss anemia: (3) Hemorrhagic shock: (4) Chronic kidney disease, stage IV (severe): PLAN: Plan Acute renal failure CKD stage IIIb Hyperkalemia Started on dialysis on Thursday. Received dialysis Thursday and Thursday. Today potassium is better. Volume status looks acceptable. Urine output is borderline. Hold off dialysis today. Will assess daily Potassium is normal today.
[2022-05-19 17:01] LABS: Bedside Glucose 239 mg/dL (74-106)
--- NOTE | 2022-05-19 17:01 | PCM.PROGNOTE ---
Subjective Subjective Patient despite being n.p.o. is still having episodes of lower GI bleeding. He does not have any abdominal pain. He did not get hemodialysis today. Objective Data Objective Data Vital Signs: Vital Signs Temp Pulse Resp BP Pulse Ox 97.9 F 84 18 149/68 H 98 05/19/22 16:49 05/19/22 16:49 05/19/22 16:49 05/19/22 16:49 05/19/22 16:49 Oxygen Flow Rate (L/min) 1 Oxygen Delivery Method Room Air Weight: 407 lb 10.155 oz Body Mass Index (BMI) 57.3 Intake & Output: Intake and Output for Last 24 Hours 05/17/22 05/18/22 05/19/22 23:59 23:59 23:59 Intake Total 2259.17 / 2279.17 1889.75 / 1889.75 765.63 / 765.63 Output Total 1918 / 2968 2725 / 2725 350 / 350 Balance 341.17 / -688.83 -835.25 / -835.25 415.63 / 415.63 Lab / Micro Data Result Diagrams: 05/19/22 03:09 05/19/22 03:09 Labs: Laboratory Results - last 24 hr 05/16/22 03:05: Crossmatch See Detail 05/17/22 21:26: Hep Bs Antigen Non-Reactive 05/18/22 03:09: WBC Cancelled, Corrected WBC Cancelled, RBC Cancelled, Hgb Cancelled, Hct Cancelled, MCV Cancelled, MCH Cancelled, MCHC Cancelled, RDW Std Deviation Cancelled, RDW Coeff of Petty Cancelled, Plt Count Cancelled, MPV Cancelled, Diff Path Review Cancelled 05/18/22 04:00: MCV 96.5 H, MCHC 31.3 L 05/18/22 17:03: POC Glucose 225 H 05/18/22 21:12: Hgb 8.4 L, Hct 26.1 L 05/18/22 21:12: Blood Type O POSITIVE, Antibody Screen NEGATIVE, Crossmatch See Detail 05/18/22 21:18: POC Glucose 224 H 05/19/22 03:09: Sodium 135 L, Potassium 4.4, Chloride 101, Carbon Dioxide 25.0, Anion Gap 9, BUN 55 H, Creatinine 2.27 H, Estim Creat Clear Calc 25.07, Est GFR (MDRD) Af Amer 36 L, Est GFR (MDRD) Non-Af 30 L, BUN/Creatinine Ratio 24.2 H, Glucose 250 H, Calcium 7.6 L 05/19/22 03:09: WBC 8.7, RBC 2.66 L, Hgb 8.3 L, Hct 25.6 L, MCV 96.2 H, MCH 31.2, MCHC 32.4, RDW Std Deviation 59.1 H, RDW Coeff of Petty 17.1 H, Plt Count 118 L, MPV 10.2 05/19/22 03:09: Phosphorus 3.6, Magnesium 2.3 05/19/22 07:41: POC Glucose 260 H 05/19/22 10:57: POC Glucose 248 H Rhythm Strip Rhythm Strip: A-fib Rate: 104 Physical Exam Narrative Alert awake oriented x 3 no obvious distress no pallor no icterus no JVD s1s2 no murmurs lungs clear abdomen soft no organomegaly no edema no cyanosis erwin + Assessment & Plan Assessment/Plan (1) Gastrointestinal bleeding: QUALIFIERS: GI bleed type/associated pathology: unspecified gastrointestinal hemorrhage type Qualified Code(s): K92.2 - Gastrointestinal hemorrhage, unspecified PLAN: Plan Acute blood loss anemia possibly secondary to GI bleeding. Differential diagnosis does include bleeding in the small bowel such as telangiectasias, angiodysplasias, ulcerations. Differential diagnosis of bleeding and colon would be less likely ulcerative colitis, ischemic colitis, diverticular bleed, neoplasia. He will undergo colonoscopy tomorrow. He was explained alternatives, risk, benefits including not withstanding bleeding, infection, sepsis, perforation, need for emergent surgery . Have an ASA of 3. Charges/Coding Visit Charges Inpatient E&M: 93548 Subs Hosp L2
[2022-05-19] MEDS: Bisacodyl 5 MG Tablet 20 MG PO (18:23)
[2022-05-19] MEDS: Electrolyte Solution/Peg's 4000 ML PO (18:23)
[2022-05-19 21:36] LABS: Hematocrit 27.4 % (40-54); Hemoglobin 8.8 g/dL (13.0-16.5)
[2022-05-19 22:16] LABS: Bedside Glucose 213 mg/dL (74-106)
[2022-05-20] VITALS (19 sets, daily range): BP systolic 118–176; BP diastolic 52–95; PULSE 73–119; RESP 16–18; TEMP 36.2–36.8; O2SAT 95–100; BMI 57.3
[2022-05-20] MEDS: hydrALAZINE 20 MG/ML Vial 10 MG IV (04:14)
[2022-05-20] MEDS: 0.9% Saline Lock 10 ML Syringe IV ×3 (04:14→19:02)
[2022-05-20 05:06] LABS: Absolute Lymphocyte Count 1.02 X10^3/uL (0.83-4.51); Absolute Neutrophil Count 4.5 X10^3/uL (2.0-7.7); Basophil# 0.06 X10^3/uL; Basophil% 0.8 % (0-1); Eosinophil# 0.42 X10^3/uL; Eosinophils% 5.8 % (0-5); Hematocrit 26.4 % (40-54); Hemoglobin 8.3 g/dL (13.0-16.5); Lymphocyte # 1.02 X10^3/ul (0.83-4.51); Lymphocyte % 14.1 % (19-41); Mean Corp Hgb Conc 31.4 g/dL (32-36); Mean Corpuscular Hgb 30.4 pg (27.0-32.0); Mean Corpuscular Volume 96.7 fL (80-94); Mean Platelet Vol. 10.7 fl (6.2-12.0); Monocyte# 0.99 X10^3/uL; Monocyte% 13.7 % (0-10); NRBC Flagged by Analyzer 0.6 % (0-5); Neutrophil # 4.49 X10^3/uL (2.7-7.7); Platelet Count 123 K/mm3 (150-450); RBC Distribution Width CV 16.5 % (11.6-14.6); RBC Distribution Width SD 57.2 fl (35.1-43.9); Red Blood Count 2.73 M/mm3 (4.6-6.2); White Blood Count 7.2 K/mm3 (4.4-11.0)
[2022-05-20 05:13] LABS: International Normalized Ratio 1.2; Prothrombin Time (Protime)PT. 15.3 SECONDS (11.7-14.9)
[2022-05-20 05:14] LABS: Partial Thromboplast Time 33.2 Seconds (24.1-36.2)
[2022-05-20] MEDS: Menthol/Lanolin/Calamine/Znox 113 GM Tube 1 APPLIC TOPICAL ×2 (05:23→21:56)
[2022-05-20] MEDS: Nystatin Powder 15gm Bottle 1 APPLIC TOPICAL ×2 (05:23→21:58)
[2022-05-20 05:44] LABS: Anion Gap 10 (5-15); BUN 54 mg/dL (7-18); Calcium,Total 8.1 mg/dL (8.5-10.1); Chloride 104 mmol/L (98-107); Creatinine, Serum 2.46 mg/dL (0.70-1.30); EST Glomerular Filtration Rate 27 mL/min (>60); Est Glom Filt Rate - Afr Amer 33 mL/min (>60); Estimated Creatinine Clearance 23.14 ml/min; Glucose 199 mg/dL (74-106); Potassium 3.9 mmol/L (3.5-5.1); Sodium Level 139 mmol/L (136-145)
--- NOTE | 2022-05-20 06:45 | PN.CC_ITS ---
Assessment & Plan Assessment/Plan (1) Acute blood loss anemia: PLAN: Plan RECOMMENDATIONS: 1. Continue Protonix per GI recommendations. 2. Tentative plans for lower endoscopy. 3. Continue to monitor blood counts and transfuse if hemoglobin drops below 7 g/dL. 4. Encourage incentive spirometer use while in bed and mobilize patient as tolerated. IMPRESSIONS: 1. Acute blood loss anemia The patient presented with anemia requiring transfusion of blood products. He subsequently underwent upper endoscopy which revealed oozing gastric ulcers, which was treated with a heater probe. The patient has been maintained on Protonix, with GI following for additional recommendations. Hemoglobin is stable this morning at 8.3 g/dL. Plan to continue to monitor blood counts and transfuse if hemoglobin is below 7 g/dL. 2. Acute on chronic kidney disease Likely secondary to hypotension which developed in the setting of #1. This has since resolved. The patient remains hemodynamically stable. The patient is being managed with intermittent dialysis per nephrology recommendations. 3. Chronic heart failure with preserved ejection fraction/diabetes mellitus/morbid obesity/suspected sleep apnea/hypertension/atrial fibrillation Complicates care, management, recovery and prognosis. Continue home medications as indicated. This note was generated with [employer] dictation software. It may contain incorrect words, spelling, and punctuation that were not noted in checking the note before signing. Subjective Subjective The patient was seen and examined at the bedside this morning. Events from the last 24 hours have been reviewed. The patient is currently afebrile, hemodynamically stable and maintaining appropriate oxygen saturations on 3 L/min via nasal cannula. Blood counts remain stable. There are tentative plans for the patient to undergo a colonoscopy today. Objective Data Objective Data The patient's most recent lab work, culture data and imaging studies have all been personally reviewed. Surface echocardiogram dated May 07 demonstrated moderate concentric LVH with an ejection fraction of 55%. Right ventricular systolic pressure was estimated to be 71 mmHg. Respiratory viral panel was negative. COVID antigen testing was negative. Vital Signs: Vital Signs Temp Pulse Resp BP Pulse Ox 97.5 F L 73 18 166/71 H 98 05/20/22 03:25 05/20/22 04:14 05/20/22 03:25 05/20/22 03:25 05/20/22 03:25 Oxygen Flow Rate (L/min) 3 Oxygen Delivery Method Nasal Cannula Weight: 359 lb 12.71 oz Body Mass Index (BMI) 57.3 Intake & Output: Intake and Output for Last 24 Hours 05/18/22 05/19/22 05/20/22 23:59 23:59 23:59 Intake Total 1889.75 / 1889.75 1639.05 / 1639.05 18.83 / 18.83 Output Total 2725 / 2725 850 / 850 400 / 400 Balance -835.25 / -835.25 789.05 / 789.05 -381.17 / -381.17 Lab / Micro Data Attestation: I reviewed the patient's lab results. Result Diagrams: 05/20/22 04:27 05/20/22 04:27 Labs: Laboratory Results - last 24 hr 05/17/22 21:26: Hep Bs Antigen Non-Reactive 05/19/22 03:09: Phosphorus 3.6, Magnesium 2.3 05/19/22 07:41: POC Glucose 260 H 05/19/22 10:57: POC Glucose 248 H 05/19/22 16:52: POC Glucose 239 H 05/19/22 21:10: Hgb 8.8 L, Hct 27.4 L 05/19/22 21:12: POC Glucose 213 H 05/20/22 04:27: WBC 7.2, RBC 2.73 L, Hgb 8.3 L, Hct 26.4 L, MCV 96.7 H, MCH 30.4, MCHC 31.4 L, RDW Std Deviation 57.2 H, RDW Coeff of Petty 16.5 H, Plt Count 123 L, MPV 10.7, Immature Gran % (Auto) 3.600 H, Neut % (Auto) 62.0, Lymph % (Auto) 14.1 L, [place] % (Auto) 13.7 H, Eos % (Auto) 5.8 H, Baso % (Auto) 0.8, Absolute Neuts (auto) 4.5, Absolute Lymphs (auto) 1.02, Nucleated RBC % 0.6 05/20/22 04:27: Sodium 139, Potassium 3.9, Chloride 104, Carbon Dioxide 25.0, Anion Gap 10, BUN 54 H, Creatinine 2.46 H, Estim Creat Clear Calc 23.14, Est GFR (MDRD) Af Amer 33 L, Est GFR (MDRD) Non-Af 27 L, BUN/Creatinine Ratio 22.0 H, Glucose 199 H, Calcium 8.1 L 05/20/22 04:27: PT 15.3 H, INR 1.2, APTT 33.2 Rhythm Strip Rhythm Strip: A-fib Rate: 104 Physical Exam Const alert and no apparent distress General Appearance: cooperative Nutritional Appearance: morbidly obese HEENT normocephalic, head/scalp atraumatic and moist oral mucous membranes Eyes PERRL, EOMs intact bilaterally and conjunctivae normal Neck supple General: trachea midline and CVC in place Chest inspection of chest normal Resp normal respiratory effort Auscultation: Negative for rales, rhonchi or wheezes Cardio S1 normal heart sound and S2 normal heart sound Rhythm: abnormal rhythm GI normal to inspection, nondistended, normoactive bowel sounds Extremity General Extremity: edema; Negative for clubbing Skin no rashes or lesions noted Neuro CN's II-XII intact bilaterally and no focal motor deficits Psych cooperative and affect normal Charges/Coding Visit Charges Inpatient E&M: 07594 Subs Hosp L2
[2022-05-20] MEDS: Insulin Lispro 100 UNIT/ML INSULN.PEN SC ×3 (06:54→19:04)
[2022-05-20 07:00] LABS: Bedside Glucose 190 mg/dL (74-106)
[2022-05-20 07:58] LABS: Hemoglobin A1c 5.7 % (3.8-5.6)
[2022-05-20] MEDS: Morphine 2 MG/ML Syringe IV (08:39)
[2022-05-20] MEDS: Fluticasone 0.05% 1 SPRAY NASAL.SRY NASAL ×2 (09:29→21:55)
[2022-05-20] MEDS: Azelastine HCl NASAL.SRY 1 SPRAY NASAL ×2 (09:29→21:55)
--- NOTE | 2022-05-20 10:03 | PCM.PN.HOSP ---
Subjective Subjective Hemoglobin this morning is 8.3, he is feeling better. We will continue with dialysis but he is making little bit a urine Objective Data Objective Data Vital Signs: Vital Signs Temp Pulse Resp BP Pulse Ox 97.5 F L 94 18 168/68 H 98 05/20/22 03:25 05/20/22 07:00 05/20/22 03:25 05/20/22 08:37 05/20/22 08:37 Oxygen Flow Rate (L/min) 3 Oxygen Delivery Method Nasal Cannula Weight: 359 lb 12.71 oz Body Mass Index (BMI) 57.3 Intake & Output: Intake and Output for Last 24 Hours 05/19/22 05/20/22 05/21/22 03:59 03:59 03:59 Intake Total 1780.92 / 1780.92 1657.88 / 1657.88 Output Total 1675 / 1675 850 / 850 400 / 400 Balance 105.92 / 105.92 807.88 / 807.88 -400 / -400 Lab / Micro Data Result Diagrams: 05/20/22 04:27 05/20/22 04:27 Labs: Laboratory Results - last 24 hr 05/19/22 10:57: POC Glucose 248 H 05/19/22 16:52: POC Glucose 239 H 05/19/22 21:10: Hgb 8.8 L, Hct 27.4 L 05/19/22 21:12: POC Glucose 213 H 05/20/22 04:27: WBC 7.2, RBC 2.73 L, Hgb 8.3 L, Hct 26.4 L, MCV 96.7 H, MCH 30.4, MCHC 31.4 L, RDW Std Deviation 57.2 H, RDW Coeff of Petty 16.5 H, Plt Count 123 L, MPV 10.7, Immature Gran % (Auto) 3.600 H, Neut % (Auto) 62.0, Lymph % (Auto) 14.1 L, [place] % (Auto) 13.7 H, Eos % (Auto) 5.8 H, Baso % (Auto) 0.8, Absolute Neuts (auto) 4.5, Absolute Lymphs (auto) 1.02, Nucleated RBC % 0.6 05/20/22 04:27: Sodium 139, Potassium 3.9, Chloride 104, Carbon Dioxide 25.0, Anion Gap 10, BUN 54 H, Creatinine 2.46 H, Estim Creat Clear Calc 23.14, Est GFR (MDRD) Af Amer 33 L, Est GFR (MDRD) Non-Af 27 L, BUN/Creatinine Ratio 22.0 H, Glucose 199 H, Calcium 8.1 L 05/20/22 04:27: PT 15.3 H, INR 1.2, APTT 33.2 05/20/22 04:27: Hemoglobin A1c 5.7 H 05/20/22 06:53: POC Glucose 190 H Rhythm Strip Rhythm Strip: A-fib Rate: 104 Physical Exam Narrative Const alert, oriented x3 and no apparent distress General Appearance: cooperative HEENT normocephalic and moist oral mucous membranes Eyes PERRL, EOMs intact bilaterally and conjunctivae normal Neck supple and no JVD Resp normal respiratory effort, no retractions and no use of accessory muscles Auscultation: diminished lung sounds; Negative for crackles, rales, rhonchi or wheezes Cardio regular rate, abnormal rhythm, S1 normal heart sound, S2 normal heart sound and no murmurs GI soft to palpation, non-tender and non-distended; Negative for hepatosplenomegaly Extremity Extremity Narrative: Bilateral extremities with dressings applied General Extremity: edema; Negative for clubbing or cyanosis Skin no rashes or lesions noted Neuro no focal motor deficits and no sensory deficits noted Psych affect normal Appearance: appropriate Assessment & Plan Assessment/Plan (1) Gastrointestinal bleeding: QUALIFIERS: GI bleed type/associated pathology: unspecified gastrointestinal hemorrhage type Qualified Code(s): K92.2 - Gastrointestinal hemorrhage, unspecified (2) Acute blood loss anemia: (3) Hemorrhagic shock: (4) Chronic kidney disease, stage IV (severe): PLAN: Plan 1. Acute upper GI bleed secondary to gastric ulcers/acute blood loss anemia with monitor shock ? Had an EGD which demonstrated gastric ulcers. These were treated ? Continue with PPI ? That he was recently started on Eliquis for new onset A. fib which has been discontinued, he was given PCC ? Did have some maroon stools the other day, and was transfused 2 units, his hemoglobin is stable today at 8.3 we will proceed with colonoscopy ? Surgery placed dialysis catheter and he underwent dialysis last night. Potassium is better ? Continue with n.p.o. status ? We will continue to monitor hemoglobin and transfuse as necessary ? Continue with octreotide drip ? Off of Levophed 2. Chronic diastolic CHF with severe pulmonary hypertension/A. fib/HTN/HLD/morbid obesity ? We will hold his Eliquis for his new onset A. fib ? Given his hemorrhagic shock we will hold his Lasix and Aldactone ? He did complete antibiotic treatment for pneumonia ? Can resume his home medications when he is able to take p.o. ? BMI 57.2, discussed lifestyle modifications 3. DM2/SAQIB on CKD 3B ? Continue with insulin and make adjustments as necessary, he is currently n.p.o. ? His baseline creatinine is around 2.2-2.4 he was recently admitted with an SAQIB and his does appear with his GI bleeding that is SAQIB has returned with his creatinine now up close to 3, he did have hyperkalemia symptoms also started on temporary dialysis DVT: SCDs Charges/Coding Visit Charges Inpatient E&M: 36390 Subs Hosp L2
[2022-05-20 12:05] LABS: Bedside Glucose 213 mg/dL (74-106)
--- NOTE | 2022-05-20 16:00 | COLBX_PTH ---
PATIENT: LUCRECIA VAZQUEZ LOC: [facility] U#:[id number] AGE/SX: 76/M ROOM: [facility] RE05/16/[address]: Dr. Cleo Olivas MD : 1945 BED: 1 DIS: 05/28/2022 SPEC #: [id number] RECD: 05/20/22 18:16 STATUS: LOVELY KELLOGG #: [id number] JOSE: 05/20/22 16:[address]: Raz Acosta DEPT: SURGICAL PATHOLOGY RECD BY: Georgie Ma ENTERED: 05/21/22 07:46 SP TYPE: COLON BX OTHR DR: MD Dr. Martin John, DO Dr. David Barrera, MD Dr. Tomas Gómez Dr., MD Dr. Natthavat Tanphaichitr, MD Christina Muller, IT [employer] MANAGER-C Tissues: A - Ascending colon B - SPLENIC FLEXURE C - Sigmoid colon biopsy D - Rectum, NOS Procedures: Surgery Specimen Level IV HEADER OPERATION: Colonoscopy with hot snare polypectomy, endo spot marking PRE-OP DIAGNOSIS: GI bleeding TISSUE SUBMITTED: A ? Ascending colon polyp, B ? Splenic flexure polyp, C ? Sigmoid polyp, D ? Rectum polyp MICROSCOPIC DIAGNOSIS A. Ascending colon polyp, biopsy: Fragments of tubulovillous adenoma. B. Splenic flexure polyp, biopsy: Fragments of villous adenoma. C. Sigmoid polyp, biopsy: Fragments of tubulovillous adenoma. D. Polyp rectum, biopsy: A fragment of villous adenoma. SJ:ace 05/22/2022 MICROSCOPIC DESCRIPTION Slides are reviewed. GROSS DESCRIPTION A - Received in fixative is one container labeled with the patient's name and designated polyp ascending colon. The specimen consists of multiple irregular fragments of light cardenas soft tissue that in aggregate measure 1.5 x 1.2 x 0.3 cm. The specimen is totally submitted in one cassette. B - Received in fixative is one container labeled with the patient's name and designated polyp splenic flexure. The specimen consists of multiple irregular fragments of light cardenas soft tissue that in aggregate measure 1.5 x 0.5 x 0.1 cm. The specimen is totally submitted in one cassette. C - Received in fixative is one container labeled with the patient's name and designated polyp sigmoid. The specimen consists of multiple irregular fragments of light cardenas soft tissue that in aggregate measure 2 x 1 x 0.4 cm. The specimen is totally submitted in one cassette. D - Received in fixative is one container labeled with the patient's name and designated polyp rectum. The specimen consists of one irregular fragment of light cardenas soft tissue that measures 0.3 x 0.1 x 0.1 cm. The specimen is totally submitted in one cassette. / SJ:rg 05/21/2022 TC:1 CPT: 97181 x4
[2022-05-20] MEDS: 0.9% Normal Saline (Pres. free 10 ML Vial (17:06)
[2022-05-20] MEDS: Epinephrine (1 mg/ml) 1 MG/ML VIAL (17:06)
--- NOTE | 2022-05-20 17:26 | OP.COLON_ITS ---
Patient Name: Vahid Diallo Procedure Date: 05/20/2022 3:49 PM Date of : 1945 Age: 76 Procedure: Colonoscopy Indications: Hematochezia Providers: Raz Acosta DO Medicines: Monitored Anesthesia Care Patient Profile: This is a 76 year old male. Refer to note in patient chart for documentation of history and physical. Last Colonoscopy: none. The patient's first colonoscopy is today. Complications: No immediate complications. Procedure: Pre-Anesthesia Assessment: - Prior to the procedure, a History and Physical was performed, and patient medications and allergies were reviewed. The risks and benefits of the procedure and the sedation options and risks were discussed with the patient. All questions were answered and informed consent was obtained. Patient identification and proposed procedure were verified by the physician in the pre-procedure area. Mental Status Examination: alert and oriented. Airway Examination: normal oropharyngeal airway and neck mobility. Respiratory Examination: clear to auscultation. CV Examination: normal. Prophylactic Antibiotics: The patient does not require prophylactic antibiotics. Prior Anticoagulants: The patient has taken no previous anticoagulant or antiplatelet agents. ASA Grade Assessment: II - A patient with mild systemic disease. After reviewing the risks and benefits, the patient was deemed in satisfactory condition to undergo the procedure. The anesthesia plan was to use moderate sedation / analgesia (conscious sedation). Immediately prior to administration of medications, the patient was re-assessed for adequacy to receive sedatives. The heart rate, respiratory rate, oxygen saturations, blood pressure, adequacy of pulmonary ventilation, and response to care were monitored throughout the procedure. The physical status of the patient was re-assessed after the procedure. After I obtained informed consent, the scope was passed under direct vision. Throughout the procedure, the patient's blood pressure, pulse, and oxygen saturations were monitored continuously. The Colonoscope was introduced through the anus and advanced to the terminal ileum. The colonoscopy was performed without difficulty. The patient tolerated the procedure well. The quality of the bowel preparation was good. Scope In: 4:13:32 PM Scope Withdrawal Time 0 hours 55 minutes 38 seconds Scope Out: 5:13:53 PM Total Procedure Duration Time 1 hour 0 minutes 21 seconds Findings: Ten sessile polyps were found in the rectum, sigmoid colon, transverse colon, hepatic flexure and ascending colon. The polyps were large in size. These polyps were removed with a hot snare. Resection and retrieval were complete. Verification of patient identification for the specimen was done. Estimated blood loss was minimal. Multiple small and large-mouthed diverticula were found in the sigmoid colon. There was active bleeding coming from the diverticular opening. Area was successfully injected with 5 mL of a 1:10,000 solution of epinephrine for hemostasis. For hemostasis, two hemostatic clips were successfully placed. There was no bleeding at the end of the procedure. That area was tattooed with ink. A 5 mm polyp was found in the rectum. The polyp was sessile. This was biopsied with a cold large-capacity forceps for histology. To prevent bleeding post-intervention, one hemostatic clip was successfully placed. There was no bleeding at the end of the procedure. The #2 large lipomas seen and a descending colon and sigmoid colon. The terminal ileum appeared normal. Impression: - Ten large polyps in the rectum, in the sigmoid colon, in the transverse colon, at the hepatic flexure and in the ascending colon, removed with a hot snare. Resected and retrieved. - Severe diverticulosis in the sigmoid colon. There was active bleeding coming from the diverticular opening. Injected. Clips were placed. - One 5 mm polyp in the rectum. Biopsied. Clip was placed. - The examined portion of the ileum was normal. Recommendation: - [facility]. - Full liquid diet today. - No aspirin, ibuprofen, naproxen, or other non-steroidal anti-inflammatory drugs for 7 days after polyp removal. - Repeat colonoscopy is recommended for surveillance of multiple polyps. The colonoscopy date will be determined after pathology results from today's exam become available for review. Procedure Code(s): --- Professional --- 07561, 59, Colonoscopy, flexible; with control of bleeding, any method 00588, Colonoscopy, flexible; with removal of tumor(s), polyp(s), or other lesion(s) by snare technique 65113, 59, Colonoscopy, flexible; with biopsy, single or multiple CPT copyright 2017 [employer]. All rights reserved. The codes documented in this report are preliminary and upon transmission mechanic review may be revised to meet current compliance requirements. Raz Acosta DO 05/20/2022 5:25:44 PM This report has been signed electronically. Number of Addenda: 1 Note Initiated On: 05/20/2022 3:49 PM Addendum Number: 1 Addendum Date: 08/26/2022 6:03:59 AM MAC was used as sedation for this procedure. Raz Acosta DO 08/26/2022 6:04:03 AM This report has been signed electronically.
--- NOTE | 2022-05-20 17:27 | OP.CCLET_ITS ---
08/26/2022 Alvar[address] Sam [address] [place] [address] Re : Colonoscopy procedure for Vahid Diallo Dear Dr. Sam This procedure was performed on Friday, May 20, 2022. My impressions and recommendations are as follows: Impressions : - Ten large polyps in the rectum, in the sigmoid colon, in the transverse colon, at the hepatic flexure and in the ascending colon, removed with a hot snare. Resected and retrieved. - Severe diverticulosis in the sigmoid colon. There was active bleeding coming from the diverticular opening. Injected. Clips were placed. - One 5 mm polyp in the rectum. Biopsied. Clip was placed. - The examined portion of the ileum was normal. Recommendations : - [facility]. - Full liquid diet today. - No aspirin, ibuprofen, naproxen, or other non-steroidal anti-inflammatory drugs for 7 days after polyp removal. - Repeat colonoscopy is recommended for surveillance of multiple polyps. The colonoscopy date will be determined after pathology results from today's exam become available for review. My findings are described in the full procedure note, which is enclosed. If I can be of further assistance, please feel free to contact me at . Sincerely, Raz Acosta, 05/20/2022 5:25:44 PM This report has been signed electronically.
[2022-05-20] MEDS: Metoprolol Tartrate 50 MG Tablet PO (19:11)
[2022-05-20 19:26] LABS: Bedside Glucose 220 mg/dL (74-106)
[2022-05-20] MEDS: Sucralfate 1 GM Tablet PO (21:57)
[2022-05-20 22:01] LABS: Bedside Glucose 263 mg/dL (74-106)
[2022-05-21] VITALS (13 sets, daily range): BP systolic 125–143; BP diastolic 57–77; PULSE 67–81; RESP 17–18; TEMP 35.8–36.8; O2SAT 89–100
[2022-05-21 06:27] LABS: Absolute Lymphocyte Count 1.12 X10^3/uL (0.83-4.51); Absolute Neutrophil Count 4.5 X10^3/uL (2.0-7.7); Basophil# 0.05 X10^3/uL; Basophil% 0.7 % (0-1); Eosinophil# 0.39 X10^3/uL; Eosinophils% 5.4 % (0-5); Hematocrit 26.8 % (40-54); Hemoglobin 8.4 g/dL (13.0-16.5); Lymphocyte # 1.12 X10^3/ul (0.83-4.51); Lymphocyte % 15.4 % (19-41); Mean Corp Hgb Conc 31.3 g/dL (32-36); Mean Corpuscular Hgb 31.1 pg (27.0-32.0); Mean Corpuscular Volume 99.3 fL (80-94); Mean Platelet Vol. 10.8 fl (6.2-12.0); Monocyte# 0.97 X10^3/uL; Monocyte% 13.4 % (0-10); NRBC Flagged by Analyzer 0 % (0-5); Neutrophil # 4.53 X10^3/uL (2.7-7.7); Neutrophil % 62.3 % (47-70); Platelet Count 129 K/mm3 (150-450); RBC Distribution Width SD 57.9 fl (35.1-43.9); White Blood Count 7.3 K/mm3 (4.4-11.0)
[2022-05-21] MEDS: Nystatin Powder 15gm Bottle 1 APPLIC TOPICAL ×3 (06:37→21:21)
[2022-05-21] MEDS: Menthol/Lanolin/Calamine/Znox 113 GM Tube 1 APPLIC TOPICAL ×3 (06:37→21:22)
[2022-05-21] MEDS: Insulin Lispro 100 UNIT/ML INSULN.PEN SC ×3 (06:40→16:21)
[2022-05-21 06:41] LABS: Bedside Glucose 208 mg/dL (74-106)
[2022-05-21 06:58] LABS: Anion Gap 9 (5-15); BUN 52 mg/dL (7-18); BUN/Creat Ratio 19.8 RATIO (10-20); Calcium,Total 8.3 mg/dL (8.5-10.1); Chloride 105 mmol/L (98-107); Creatinine, Serum 2.63 mg/dL (0.70-1.30); EST Glomerular Filtration Rate 25 mL/min (>60); Est Glom Filt Rate - Afr Amer 30 mL/min (>60); Estimated Creatinine Clearance 21.64 ml/min; Glucose 223 mg/dL (74-106); Potassium 4.3 mmol/L (3.5-5.1); Sodium Level 138 mmol/L (136-145)
--- NOTE | 2022-05-21 08:36 | PN.CC_ITS ---
Assessment & Plan Assessment/Plan (1) Acute blood loss anemia: PLAN: Plan RECOMMENDATIONS: 1. Continue Protonix per GI recommendations. 2. Dietary advancement as tolerated. 3. Continue to monitor blood counts and transfuse if hemoglobin drops below 7 g/dL. 4. Encourage incentive spirometer use while in bed and mobilize patient as tolerated. IMPRESSIONS: 1. Acute blood loss anemia The patient presented with anemia requiring transfusion of blood products. He subsequently underwent upper endoscopy which revealed oozing gastric ulcers, which was treated with a heater probe. Lower endoscopy revealed a bleeding diverticula which was treated. The patient has been maintained on Protonix, with GI following for additional recommendations. Hemoglobin remains stable. Plan to continue to monitor blood counts and transfuse if hemoglobin is below 7 g/dL. 2. Acute on chronic kidney disease Likely secondary to hypotension which developed in the setting of #1. This has since resolved. The patient remains hemodynamically stable. The patient is being managed with intermittent dialysis per nephrology recommendations. 3. Chronic heart failure with preserved ejection fraction/diabetes mellitus/morbid obesity/suspected sleep apnea/hypertension/atrial fibrillation Complicates care, management, recovery and prognosis. Continue home medications as indicated. This note was generated with [employer] dictation software. It may contain incorrect words, spelling, and punctuation that were not noted in checking the note before signing. Subjective Subjective The patient was seen and examined at the bedside this morning. Events from the last 24 hours have been reviewed. The patient is currently afebrile, hemodynamically stable and maintaining appropriate oxygen saturations on 3 L/min via nasal cannula. The patient underwent lower endoscopy yesterday with a diverticular bleed noted in the sigmoid colon. Hemoglobin is still stable this morning at 8.4 g/dL. Objective Data Objective Data The patient's most recent lab work, culture data and imaging studies have all been personally reviewed. Surface echocardiogram dated May 07 demonstrated moderate concentric LVH with an ejection fraction of 55%. Right ventricular systolic pressure was estimated to be 71 mmHg. Respiratory viral panel was negative. COVID antigen testing was negative. Vital Signs: Vital Signs Temp Pulse Resp BP Pulse Ox 98.2 F 67 18 125/75 H 99 05/21/22 03:08 05/21/22 07:00 05/21/22 03:08 05/21/22 03:08 05/21/22 03:08 Oxygen Flow Rate (L/min) 3 Oxygen Delivery Method Nasal Cannula Weight: 356 lb 11.327 oz Body Mass Index (BMI) 57.3 Intake & Output: Intake and Output for Last 24 Hours 05/19/22 05/20/22 05/21/22 23:59 23:59 23:59 Intake Total 1639.05 / 1639.05 573.16 / 673.16 200 / 200 Output Total 850 / 850 900 / 900 300 / 300 Balance 789.05 / 789.05 -326.84 / -226.84 -100 / -100 Lab / Micro Data Attestation: I reviewed the patient's lab results. Result Diagrams: 05/21/22 05:40 05/21/22 05:40 Labs: Laboratory Results - last 24 hr 05/20/22 11:32: POC Glucose 213 H 05/20/22 18:36: POC Glucose 220 H 05/20/22 21:47: POC Glucose 263 H 05/21/22 05:40: WBC 7.3, RBC 2.70 L, Hgb 8.4 L, Hct 26.8 L, MCV 99.3 H, MCH 31.1, MCHC 31.3 L, RDW Std Deviation 57.9 H, RDW Coeff of Petty 17.0 H, Plt Count 129 L, MPV 10.8, Immature Gran % (Auto) 2.800 H, Neut % (Auto) 62.3, Lymph % (Auto) 15.4 L, [place] % (Auto) 13.4 H, Eos % (Auto) 5.4 H, Baso % (Auto) 0.7, Absolute Neuts (auto) 4.5, Absolute Lymphs (auto) 1.12, Nucleated RBC % 0 05/21/22 05:40: Sodium 138, Potassium 4.3, Chloride 105, Carbon Dioxide 24.0, Anion Gap 9, BUN 52 H, Creatinine 2.63 H, Estim Creat Clear Calc 21.64, Est GFR (MDRD) Af Amer 30 L, Est GFR (MDRD) Non-Af 25 L, BUN/Creatinine Ratio 19.8, Glucose 223 H, Calcium 8.3 L 05/21/22 06:36: POC Glucose 208 H Rhythm Strip Rhythm Strip: A-fib Rate: 104 Physical Exam Const alert and no apparent distress General Appearance: cooperative Nutritional Appearance: morbidly obese HEENT normocephalic, head/scalp atraumatic and moist oral mucous membranes Eyes PERRL, EOMs intact bilaterally and conjunctivae normal Neck supple General: trachea midline and CVC in place Chest inspection of chest normal Resp normal respiratory effort Auscultation: Negative for rales, rhonchi or wheezes Cardio S1 normal heart sound and S2 normal heart sound Rhythm: abnormal rhythm GI normal to inspection, nondistended, normoactive bowel sounds Extremity General Extremity: edema; Negative for clubbing Skin no rashes or lesions noted Neuro CN's II-XII intact bilaterally and no focal motor deficits Psych cooperative and affect normal Charges/Coding Visit Charges Inpatient E&M: 73690 Subs Hosp L2
--- NOTE | 2022-05-21 09:30 | PCM.PN.HOSP ---
Subjective Subjective Doing well today, no issues overnight. Hemoglobin appears to been stabilized he did have a diverticular bleed on colonoscopy yesterday. Objective Data Objective Data Vital Signs: Vital Signs Temp Pulse Resp BP Pulse Ox 98.2 F 67 18 125/75 H 89 05/21/22 03:08 05/21/22 07:00 05/21/22 03:08 05/21/22 03:08 05/21/22 08:35 Oxygen Flow Rate (L/min) 3 Oxygen Delivery Method Nasal Cannula Weight: 356 lb 11.327 oz Body Mass Index (BMI) 57.3 Intake & Output: Intake and Output for Last 24 Hours 05/20/22 05/21/22 05/22/22 03:59 03:59 03:59 Intake Total 1657.88 / 1657.88 654.33 / 654.33 100 / 100 Output Total 850 / 850 900 / 900 300 / 300 Balance 807.88 / 807.88 -245.67 / -245.67 -200 / -200 Lab / Micro Data Result Diagrams: 05/21/22 05:40 05/21/22 05:40 Labs: Laboratory Results - last 24 hr 05/20/22 11:32: POC Glucose 213 H 05/20/22 18:36: POC Glucose 220 H 05/20/22 21:47: POC Glucose 263 H 05/21/22 05:40: WBC 7.3, RBC 2.70 L, Hgb 8.4 L, Hct 26.8 L, MCV 99.3 H, MCH 31.1, MCHC 31.3 L, RDW Std Deviation 57.9 H, RDW Coeff of Petty 17.0 H, Plt Count 129 L, MPV 10.8, Immature Gran % (Auto) 2.800 H, Neut % (Auto) 62.3, Lymph % (Auto) 15.4 L, [place] % (Auto) 13.4 H, Eos % (Auto) 5.4 H, Baso % (Auto) 0.7, Absolute Neuts (auto) 4.5, Absolute Lymphs (auto) 1.12, Nucleated RBC % 0 05/21/22 05:40: Sodium 138, Potassium 4.3, Chloride 105, Carbon Dioxide 24.0, Anion Gap 9, BUN 52 H, Creatinine 2.63 H, Estim Creat Clear Calc 21.64, Est GFR (MDRD) Af Amer 30 L, Est GFR (MDRD) Non-Af 25 L, BUN/Creatinine Ratio 19.8, Glucose 223 H, Calcium 8.3 L 05/21/22 06:36: POC Glucose 208 H Rhythm Strip Rhythm Strip: A-fib Rate: 104 Physical Exam Narrative Const alert, oriented x3 and no apparent distress General Appearance: cooperative HEENT normocephalic and moist oral mucous membranes Eyes PERRL, EOMs intact bilaterally and conjunctivae normal Neck supple and no JVD Resp normal respiratory effort, no retractions and no use of accessory muscles Auscultation: diminished lung sounds; Negative for crackles, rales, rhonchi or wheezes Cardio regular rate, abnormal rhythm, S1 normal heart sound, S2 normal heart sound and no murmurs GI soft to palpation, non-tender and non-distended; Negative for hepatosplenomegaly Extremity Extremity Narrative: Bilateral extremities with dressings applied General Extremity: edema; Negative for clubbing or cyanosis Skin no rashes or lesions noted Neuro no focal motor deficits and no sensory deficits noted Psych affect normal Appearance: appropriate Assessment & Plan Assessment/Plan (1) Gastrointestinal bleeding: QUALIFIERS: GI bleed type/associated pathology: unspecified gastrointestinal hemorrhage type Qualified Code(s): K92.2 - Gastrointestinal hemorrhage, unspecified (2) Acute blood loss anemia: (3) Hemorrhagic shock: (4) Chronic kidney disease, stage IV (severe): PLAN: Plan 1. Acute upper GI bleed secondary to gastric ulcers/acute blood loss anemia with monitor shock ? Had an EGD which demonstrated gastric ulcers. These were treated, colonoscopy with a diverticular bleed ? Continue with PPI ? That he was recently started on Eliquis for new onset A. fib which has been discontinued, he was given PCC ? Did have some maroon stools the other day, and was transfused 2 units, his hemoglobin is stable today at 8.4 we will proceed with colonoscopy ? Surgery placed dialysis catheter and he underwent dialysis last night. Potassium is better ? Continue with n.p.o. status ? We will continue to monitor hemoglobin and transfuse as necessary ? Continue with octreotide drip ? Off of Levophed 2. Chronic diastolic CHF with severe pulmonary hypertension/A. fib/HTN/HLD/morbid obesity ? We will hold his Eliquis for his new onset A. fib ? Given his hemorrhagic shock we will hold his Lasix and Aldactone ? He did complete antibiotic treatment for pneumonia ? Can resume his home medications when he is able to take p.o. ? BMI 57.2, discussed lifestyle modifications 3. DM2/SAQIB on CKD 3B ? Continue with insulin and make adjustments as necessary, he is currently n.p.o. ? His baseline creatinine is around 2.2-2.4, on admission his creatinine was closer to 3 but he also did have some hyperkalemia. Continue with dialysis and will discuss with nephrology if they feel that he will need further episodes of dialysis where she will be able to be off of dialysis prior to discharge. DVT: SCDs Charges/Coding Visit Charges Inpatient E&M: 92509 Subs Hosp L2
[2022-05-21] MEDS: Azelastine HCl NASAL.SRY 1 SPRAY NASAL ×2 (09:48→21:20)
[2022-05-21] MEDS: Fluticasone 0.05% 1 SPRAY NASAL.SRY NASAL ×2 (09:49→21:21)
[2022-05-21] MEDS: Sucralfate 1 GM Tablet PO ×2 (09:49→21:21)
[2022-05-21] MEDS: Metoprolol Tartrate 50 MG Tablet PO ×2 (09:50→21:23)
[2022-05-21] MEDS: Insulin Glargine-YFGN 100 UNIT/ML Pen 10 UNIT SC (09:50)
[2022-05-21] MEDS: Acetaminophen 325 MG Tablet 650 MG PO (09:51)
--- NOTE | 2022-05-21 10:36 | PN.RENAL_ITS ---
Subjective Subjective asking for regular diet Objective Data Objective Data Vital Signs: Vital Signs Temp Pulse Resp BP Pulse Ox O2 Del Method O2 Flow Rate 97.7 F L 74 18 143/66 H 98 Nasal Cannula 2 05/21/22 09:45 05/21/22 09:50 05/21/22 09:45 05/21/22 09:45 05/21/22 09:58 05/21/22 09:58 05/21/22 09:58 Oxygen Flow Rate (L/min) 2 Oxygen Delivery Method Nasal Cannula Weight: 161.8 kg Body Mass Index (BMI) 57.3 Intake & Output: Intake and Output for Last 24 Hours 05/19/22 05/20/22 05/21/22 23:59 23:59 23:59 Intake Total 1639.05 / 1639.05 573.16 / 673.16 451 / 451 Output Total 850 / 850 900 / 900 300 / 300 Balance 789.05 / 789.05 -326.84 / -226.84 151 / 151 Lab / Micro Data Result Diagrams: 05/21/22 05:40 05/21/22 05:40 Labs: Laboratory Results - last 24 hr 05/20/22 11:32: POC Glucose 213 H 05/20/22 18:36: POC Glucose 220 H 05/20/22 21:47: POC Glucose 263 H 05/21/22 05:40: WBC 7.3, RBC 2.70 L, Hgb 8.4 L, Hct 26.8 L, MCV 99.3 H, MCH 31.1, MCHC 31.3 L, RDW Std Deviation 57.9 H, RDW Coeff of Petty 17.0 H, Plt Count 129 L, MPV 10.8, Immature Gran % (Auto) 2.800 H, Neut % (Auto) 62.3, Lymph % (Auto) 15.4 L, [place] % (Auto) 13.4 H, Eos % (Auto) 5.4 H, Baso % (Auto) 0.7, Absolute Neuts (auto) 4.5, Absolute Lymphs (auto) 1.12, Nucleated RBC % 0 05/21/22 05:40: Sodium 138, Potassium 4.3, Chloride 105, Carbon Dioxide 24.0, Anion Gap 9, BUN 52 H, Creatinine 2.63 H, Estim Creat Clear Calc 21.64, Est GFR (MDRD) Af Amer 30 L, Est GFR (MDRD) Non-Af 25 L, BUN/Creatinine Ratio 19.8, Glucose 223 H, Calcium 8.3 L 05/21/22 06:36: POC Glucose 208 H Rhythm Strip Rhythm Strip: A-fib Rate: 104 Physical Exam Narrative Alert awake oriented x 3 no obvious distress no pallor no icterus no JVD s1s2 no murmurs lungs clear abdomen soft no organomegaly no edema no cyanosis erwin + Const alert and oriented x3 General Appearance: cooperative Orientation / Consciousness: awake HEENT normocephalic Eyes General Eye: normal appearance of both eyes Assessment & Plan Assessment/Plan (1) Gastrointestinal bleeding: QUALIFIERS: GI bleed type/associated pathology: unspecified gastrointestinal hemorrhage type Qualified Code(s): K92.2 - Gastrointestinal hemorrhage, unspecified (2) Acute blood loss anemia: (3) Hemorrhagic shock: (4) Chronic kidney disease, stage IV (severe): PLAN: Plan Acute renal failure CKD stage IIIb Hyperkalemia Started on dialysis on Thursday. Received dialysis Thursday and Thursday. Today potassium is better. Volume status looks acceptable. Urine output is better, baseline cr is around 2.2 to 2.4 today at 2.7. hold HD. may not need dialysis at [place]. will remove temporary line tomorrow if cr remains stable.
[2022-05-21 12:11] LABS: Bedside Glucose 220 mg/dL (74-106)
--- NOTE | 2022-05-21 13:56 | WOUNDNOTE ---
wound photo: right lower leg
--- NOTE | 2022-05-21 13:57 | WOUNDNOTE ---
wound photo: right lower leg
--- NOTE | 2022-05-21 13:58 | WOUNDNOTE ---
wound photo: right posterior lower leg
[2022-05-21 16:25] LABS: Bedside Glucose 291 mg/dL (74-106)
--- NOTE | 2022-05-21 17:06 | PCM.PROGNOTE ---
Subjective Subjective Patient is doing well and has been resting most of the day after undergoing a colonoscopy yesterday. He denied having any bleeding overnight. Objective Data Objective Data Vital Signs: Vital Signs Temp Pulse Resp BP Pulse Ox O2 Del Method O2 Flow Rate 97.8 F 69 17 127/77 H 99 Nasal Cannula 2 05/21/22 16:13 05/21/22 16:13 05/21/22 16:13 05/21/22 16:13 05/21/22 16:13 05/21/22 16:13 05/21/22 16:13 Oxygen Flow Rate (L/min) 2 Oxygen Delivery Method Nasal Cannula Weight: 356 lb 11.327 oz Body Mass Index (BMI) 57.3 Intake & Output: Intake and Output for Last 24 Hours 05/19/22 05/20/22 05/21/22 23:59 23:59 23:59 Intake Total 1639.05 / 1639.05 573.16 / 673.16 901 / 901 Output Total 850 / 850 900 / 900 500 / 500 Balance 789.05 / 789.05 -326.84 / -226.84 401 / 401 Lab / Micro Data Result Diagrams: 05/21/22 05:40 05/21/22 05:40 Labs: Laboratory Results - last 24 hr 05/20/22 18:36: POC Glucose 220 H 05/20/22 21:47: POC Glucose 263 H 05/21/22 05:40: WBC 7.3, RBC 2.70 L, Hgb 8.4 L, Hct 26.8 L, MCV 99.3 H, MCH 31.1, MCHC 31.3 L, RDW Std Deviation 57.9 H, RDW Coeff of Petty 17.0 H, Plt Count 129 L, MPV 10.8, Immature Gran % (Auto) 2.800 H, Neut % (Auto) 62.3, Lymph % (Auto) 15.4 L, [place] % (Auto) 13.4 H, Eos % (Auto) 5.4 H, Baso % (Auto) 0.7, Absolute Neuts (auto) 4.5, Absolute Lymphs (auto) 1.12, Nucleated RBC % 0 05/21/22 05:40: Sodium 138, Potassium 4.3, Chloride 105, Carbon Dioxide 24.0, Anion Gap 9, BUN 52 H, Creatinine 2.63 H, Estim Creat Clear Calc 21.64, Est GFR (MDRD) Af Amer 30 L, Est GFR (MDRD) Non-Af 25 L, BUN/Creatinine Ratio 19.8, Glucose 223 H, Calcium 8.3 L 05/21/22 06:36: POC Glucose 208 H 05/21/22 11:44: POC Glucose 220 H 05/21/22 16:19: POC Glucose 291 H Rhythm Strip Rhythm Strip: A-fib Rate: 104 Physical Exam Narrative Alert awake oriented x 3 no obvious distress no pallor no icterus no JVD s1s2 no murmurs lungs clear abdomen soft no organomegaly no edema no cyanosis erwin + Const alert and oriented x3 General Appearance: cooperative Orientation / Consciousness: awake HEENT normocephalic Eyes General Eye: normal appearance of both eyes Assessment & Plan Assessment/Plan (1) Acute blood loss anemia: PLAN: The etiology of his acute blood loss anemia was found to be a diverticular bleed that was treated endoscopically. He also had multiple polyps that were removed endoscopically. He is not having signs of bleeding at this time. And his hemoglobin appears to be stable. I would give him iron transfusions prior to him being discharged from the hospital. Patient is stable from a GI standpoint. Charges/Coding Visit Charges Inpatient E&M: 68868 Subs Hosp L2
[2022-05-21 21:31] LABS: Bedside Glucose 262 mg/dL (74-106)
[2022-05-22] VITALS (14 sets, daily range): BP systolic 109–142; BP diastolic 40–75; PULSE 54–78; RESP 18–20; TEMP 36.4–36.6; O2SAT 79–100
[2022-05-22] MEDS: 0.9% Saline Lock 10 ML Syringe IV ×2 (03:46→16:29)
[2022-05-22] MEDS: Menthol/Lanolin/Calamine/Znox 113 GM Tube 1 APPLIC TOPICAL ×3 (05:32→22:05)
[2022-05-22] MEDS: Nystatin Powder 15gm Bottle 1 APPLIC TOPICAL ×3 (05:32→22:04)
[2022-05-22] MEDS: Insulin Lispro 100 UNIT/ML INSULN.PEN SC ×3 (06:17→16:27)
[2022-05-22 06:26] LABS: Bedside Glucose 280 mg/dL (74-106)
[2022-05-22 06:35] LABS: Absolute Lymphocyte Count 0.72 X10^3/uL (0.83-4.51); Absolute Neutrophil Count 6.5 X10^3/uL (2.0-7.7); Basophil# 0.05 X10^3/uL; Basophil% 0.6 % (0-1); Eosinophil# 0.29 X10^3/uL; Eosinophils% 3.4 % (0-5); Hematocrit 29.1 % (40-54); Lymphocyte # 0.72 X10^3/ul (0.83-4.51); Lymphocyte % 8.3 % (19-41); Mean Corp Hgb Conc 30.9 g/dL (32-36); Mean Corpuscular Hgb 31.3 pg (27.0-32.0); Mean Platelet Vol. 10.7 fl (6.2-12.0); Monocyte# 0.82 X10^3/uL; Monocyte% 9.5 % (0-10); NRBC Flagged by Analyzer 0.2 % (0-5); Neutrophil # 6.53 X10^3/uL (2.7-7.7); Neutrophil % 75.4 % (47-70); Platelet Count 143 K/mm3 (150-450); RBC Distribution Width CV 17.2 % (11.6-14.6); RBC Distribution Width SD 60.1 fl (35.1-43.9); Red Blood Count 2.88 M/mm3 (4.6-6.2); White Blood Count 8.7 K/mm3 (4.4-11.0)
[2022-05-22 06:59] LABS: Anion Gap 9 (5-15); BUN 52 mg/dL (7-18); BUN/Creat Ratio 16.2 RATIO (10-20); Calcium,Total 8.4 mg/dL (8.5-10.1); Chloride 105 mmol/L (98-107); EST Glomerular Filtration Rate 20 mL/min (>60); Est Glom Filt Rate - Afr Amer 24 mL/min (>60); Estimated Creatinine Clearance 17.79 ml/min; Glucose 290 mg/dL (74-106); Potassium 4.6 mmol/L (3.5-5.1); Sodium Level 139 mmol/L (136-145)
--- NOTE | 2022-05-22 07:14 | PN_ITS ---
Subjective Subjective The patient was seen and examined at the bedside this morning. Events from the last 24 hours have been reviewed. The patient is currently afebrile, hemodynamically stable and maintaining appropriate oxygen saturations on 2 L/min via nasal cannula. Hemoglobin is once again stable at 9.0 g/dL. Objective Data Objective Data The patient's most recent lab work, culture data and imaging studies have all been personally reviewed. Surface echocardiogram dated May 07 demonstrated moderate concentric LVH with an ejection fraction of 55%. Right ventricular systolic pressure was estimated to be 71 mmHg. Respiratory viral panel was negative. COVID antigen testing was negative. Vital Signs: Vital Signs Temp Pulse Resp BP Pulse Ox O2 Del Method O2 Flow Rate 97.5 F L 78 18 125/72 H 95 Nasal Cannula 2 05/22/22 03:30 05/22/22 03:30 05/22/22 03:30 05/22/22 03:30 05/22/22 03:30 05/22/22 03:40 05/22/22 03:40 Oxygen Flow Rate (L/min) 2 Oxygen Delivery Method Nasal Cannula Weight: 353 lb 2.888 oz Body Mass Index (BMI) 57.3 Intake & Output: Intake and Output for Last 24 Hours 05/20/22 05/21/22 05/22/22 23:59 23:59 23:59 Intake Total 573.16 / 673.16 1251 / 1351 507.08 / 507.08 Output Total 900 / 900 675 / 875 350 / 350 Balance -326.84 / -226.84 576 / 476 157.08 / 157.08 Lab / Micro Data Attestation: I reviewed the patient's lab results. Result Diagrams: 05/22/22 06:00 05/22/22 06:00 Labs: Laboratory Results - last 24 hr 05/21/22 11:44: POC Glucose 220 H 05/21/22 16:19: POC Glucose 291 H 05/21/22 21:27: POC Glucose 262 H 05/22/22 06:00: WBC 8.7, RBC 2.88 L, Hgb 9.0 L, Hct 29.1 L, MCV 101.0 H, MCH 31.3, MCHC 30.9 L, RDW Std Deviation 60.1 H, RDW Coeff of Petty 17.2 H, Plt Count 143 L, MPV 10.7, Immature Gran % (Auto) 2.800 H, Neut % (Auto) 75.4 H, Lymph % (Auto) 8.3 L, [place] % (Auto) 9.5, Eos % (Auto) 3.4, Baso % (Auto) 0.6, Absolute Neuts (auto) 6.5, Absolute Lymphs (auto) 0.72 L, Nucleated RBC % 0.2 05/22/22 06:00: Sodium 139, Potassium 4.6, Chloride 105, Carbon Dioxide 25.0, Anion Gap 9, BUN 52 H, Creatinine 3.20 H, Estim Creat Clear Calc 17.79, Est GFR (MDRD) Af Amer 24 L, Est GFR (MDRD) Non-Af 20 L, BUN/Creatinine Ratio 16.2, Glucose 290 H, Calcium 8.4 L 05/22/22 06:15: POC Glucose 280 H Rhythm Strip Rhythm Strip: A-fib Rate: 104 Physical Exam Const alert and no apparent distress General Appearance: cooperative Nutritional Appearance: morbidly obese HEENT normocephalic, head/scalp atraumatic and moist oral mucous membranes Eyes PERRL, EOMs intact bilaterally and conjunctivae normal Neck supple General: trachea midline and CVC in place Chest inspection of chest normal Resp normal respiratory effort Auscultation: Negative for rales, rhonchi or wheezes Cardio S1 normal heart sound and S2 normal heart sound Rhythm: abnormal rhythm GI normal to inspection, nondistended, normoactive bowel sounds Extremity General Extremity: edema; Negative for clubbing Skin no rashes or lesions noted Neuro CN's II-XII intact bilaterally and no focal motor deficits Psych cooperative and affect normal Assessment & Plan Assessment/Plan (1) Acute blood loss anemia: PLAN: Plan RECOMMENDATIONS: 1. Continue Protonix per GI recommendations. 2. Dietary advancement as tolerated. 3. Continue to monitor blood counts and transfuse if hemoglobin drops below 7 g/dL. 4. Encourage incentive spirometer use while in bed and mobilize patient as tolerated. 5. Will sign off from a critical care perspective. Please call with any additional questions. IMPRESSIONS: 1. Acute blood loss anemia The patient presented with anemia requiring transfusion of blood products. He subsequently underwent upper endoscopy which revealed oozing gastric ulcers, which was treated with a heater probe. Lower endoscopy revealed a bleeding diverticula which was treated. The patient has been maintained on Protonix, with GI following for additional recommendations. Hemoglobin remains stable. Plan to continue to monitor blood counts and transfuse if hemoglobin is below 7 g/dL. 2. Acute on chronic kidney disease Likely secondary to hypotension which developed in the setting of #1. This has since resolved. The patient remains hemodynamically stable. The patient is being managed with intermittent dialysis per nephrology recommendations. 3. Chronic heart failure with preserved ejection fraction/diabetes mellitus/morbid obesity/suspected sleep apnea/hypertension/atrial fibrillation Complicates care, management, recovery and prognosis. Continue home medications as indicated. This note was generated with [employer] dictation software. It may contain incorrect words, spelling, and punctuation that were not noted in checking the note before signing. Charges/Coding Visit Charges Inpatient E&M: 78738 Subs Hosp L2
--- NOTE | 2022-05-22 10:01 | CASEMGMT ---
Per physician patient's creatinine went up again therefore he will need dialysis at discharge. Patient will not be able to go to TCU to continue his rehab due to the dialysis. SW met with patient. Introduced self and role at [facility]. SW explained to patient he will not be able to go back to TCU due to dialysis. Patient asked SW to call his son Junior and talk with him about a plan. SW called patient's son Junior. DARIO introduced self and role at [facility]. SW explained to Junior about patient not being able to go back to TCU due to dialysis. SW named the 3 other facilities that take patient's insurance. Patient's son asked that a referral be made to [facility]. DARIO told him SW will work on this and keep him up to date. Junior thanked DARIO for the phone call. DARIO notified yasmani Babb/zev emergency planning and response manager and she will make a referral to [facility]. Simi MOTA
--- NOTE | 2022-05-22 10:02 | CASEMGMT ---
Addendum entered by Holley Hampton 05/22/22 13:14: [facility] has not accepted patient yet due to his Dialysis. IF patient is on a M-W-F run for Dialysis then they would be able to transport patient. Will keep in touch. 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 Will follow up. Holley Hampton Discharge Journeyman Plumber
--- NOTE | 2022-05-22 10:12 | CASEMGMT ---
JONATHON MOROCHO called son Maynor to discuss outpatient HD. After reviewing list over the phone, son agreeable [facility]. Tommy Mcguire also inquired if [facility] is in-network with patient insurance. JONATHON MOROCHO updated son that SW will be updated regarding request and will follow-up with him. JONATHON MOROCHO initiating referral to [facility] at this time. CM will continue to follow this patient and plan for a safe discharge.
--- NOTE | 2022-05-22 10:32 | CASEMGMT ---
Per RN CM patient's son would like DARIO to check with [facility] in [place]. DARIO reviewed [facility]'s website and there are no [facility] facilities in network with [facility]. DARIO also called [facility] Nelson and left a voice mail requesting a return call. DARIO called patient's son Junior back and let him know this information. He told they will just stay with [facility]. Simi MOTA
[2022-05-22] MEDS: Fluticasone 0.05% 1 SPRAY NASAL.SRY NASAL ×2 (10:35→22:03)
[2022-05-22] MEDS: Azelastine HCl NASAL.SRY 1 SPRAY NASAL ×2 (10:35→22:03)
[2022-05-22] MEDS: Metoprolol Tartrate 50 MG Tablet PO (10:36)
[2022-05-22] MEDS: Sucralfate 1 GM Tablet PO ×2 (10:36→22:05)
[2022-05-22] MEDS: Insulin Glargine-YFGN 100 UNIT/ML Pen 10 UNIT SC (10:37)
[2022-05-22 11:50] LABS: Bedside Glucose 286 mg/dL (74-106)
[2022-05-22] MEDS: Acetaminophen 325 MG Tablet 650 MG PO ×2 (12:02→22:13)
--- NOTE | 2022-05-22 12:43 | CON.PCM.SX_ITS ---
Assessment & Plan Assessment/Plan (1) Acute kidney injury superimposed on CKD: PLAN: I am seeing this patient in conjunction with Dr. Severino. Dr. Severino will plan to remove a right neck temporary dialysis catheter and place a right chest tunneled dialysis catheter under MAC local. Procedure details, risks and benefits have been explained to the patient. Patient has had the opportunity to ask and have questions answered. Patient verbally understands and agrees with the plan. We will plan to proceed tomorrow with the procedure. Thank you for allowing us to participate in this patient's care. HPI Consult Data Date of Consult: 05/22/22 HPI Narrative Reason for Consultation: Tunneled dialysis catheter placement HPI Narrative: LUCRECIA VAZQUEZ, is a 76 M who presents with acute blood loss secondary to new admission of [facility]. Patient appears to have been recently hospitalized on 05/07 with acute metabolic encephalopathy and hypoxia. He was discharged to TCU on 05/13/22. He was then brought to the ED for this current hospitalization on 05/16/22. Patient denies previous being on dialysis prior to this admission. Dr. Severino had to place a temporary right neck dialysis catheter. Patient has tolerated the catheter well. Patient is now [facility]. Patient is continuing to need dialysis catheters once discharged due to an increase in his creatinine level. Dr. Natarajan is requesting a removal of the temporary dialysis catheter and placement of a tunneled dialysis catheter prior to discharge. Patient denies any previous complications with anesthesia. He denies previous myocardial infarction or stroke. He is on Heparin IV with d ialysis only. Patient did verbalize he did not want dialysis long-term. He is agreeable to a short-term interval, however long-term he does not want. [facility] Medical History (Updated 05/21/22 @ 00:01 by Background Daemon) Acute respiratory failure with hypoxia Atrial fibrillation, new onset Chronic back pain Chronic obstructive pulmonary disease COPD (chronic obstructive pulmonary disease) Debility Diabetes Gout Heart failure with preserved ejection fraction Hyperlipidemia Hypertension Hypertension Lumbar canal stenosis Morbid obesity Type 2 diabetes mellitus Home Medications allopurinol 300 mg tablet 300 mg PO DAILY gout 01/04/15 [History Last Taken 11/16/16 06:00] aspirin 81 mg chewable tablet 81 mg PO DAILY@0800 heart health 01/04/15 [History Last Taken 11/16/16 06:00] metoprolol tartrate 50 mg tablet 100 mg PO BID heart/bloodpressure 01/04/15 [History Last Taken 12/08/16 06:30] vitamin B complex 1 ea PO DAILY supplement 10/24/16 [History Last Taken 11/16/16 06:00] cyclobenzaprine 10 mg tablet 5 mg PO BID muscle spasm 08/13/18 [History Last Taken Unknown] oxycodone-acetaminophen 5 mg-325 mg tablet 1 - 2 tab PO Q6H PRN PRN Pain 02/12/19 [History Last Taken Unknown] albuterol 90 mcg/actuation aerosol inhaler 2 mcg inhalation Q4H PRN PRN Shortness Of Breath Or Wheezing 05/08/22 [History Last Taken Unknown] azelastine-fluticasone 137 mcg-50 mcg/spray nasal spray 1 spray intranasal BID allergies 05/08/22 [History Last Taken Unknown] cetirizine 10 mg tablet 10 mg PO DAILY allergies 05/08/22 [History Last Taken Unknown] cholecalciferol (vitamin D3) 50 mcg (2,000 unit) capsule (Vitamin D3) 50 mcg PO DAILY suppliment 05/08/22 [History Last Taken Unknown] ezetimibe 10 mg tablet (Zetia) 10 mg PO DAILY cholesterol 05/08/22 [History Last Taken Unknown] gabapentin 100 mg tablet 100 mg PO TID neuropathy 05/08/22 [History Last Taken Unknown] insulin aspart U-100 100 unit/mL (3 mL) subcutaneous pen (Novolog Flexpen U-100 Insulin aspart) 10 unit subcut 4X/DAY diabetes 05/08/22 [History Last Taken Unknown] insulin glargine 100 unit-lixisenatide 33 mcg/mL subcutaneous pen (Soliqua 100/33) 55 unit subcut DAILY diabetes 05/08/22 [History Last Taken Unknown] losartan 100 mg tablet 100 mg PO DAILY heart/blood pressure 05/08/22 [History Last Taken Unknown] multivitamin 1 cap PO DAILY suppliement 05/08/22 [History Last Taken Unknown] nifedipine 60 mg tablet,extended release 24 hr 60 mg PO DAILY heart 05/08/22 [History Last Taken Unknown] oxybutynin chloride 10 mg tablet,extended release 24 hr (Ditropan XL) 10 mg PO DAILY bladder control 05/08/22 [History Last Taken Unknown] pravastatin 40 mg tablet 40 mg PO QHS cholesterol 05/08/22 [History Last Taken Unknown] spironolactone 25 mg tablet 25 mg PO DAILY diuretic 05/08/22 [History Last Taken Unknown] torsemide 20 mg tablet 30 mg PO DAILY water pill 05/08/22 [History Last Taken Unknown] apixaban 5 mg tablet (Eliquis) 5 mg PO BID blood thinner 05/13/22 [History Last Taken Unknown] Allergy/AdvReac Type Severity Reaction Status Date / Time grass pollen Allergy Hives Verified 05/16/22 02:49 Latex, Natural Rubber Allergy Unknown Verified 05/16/22 02:49 Surgical History (Updated 05/19/22 @ 19:58 by Josefina Osborn) History of bilateral knee replacement History of cholecystectomy History of elbow surgery Social History household members: none Smoking Status: Former smoker alcohol intake: never substance use type: does not use ROS Constitutional Constitutional: Denies anorexia, chills, fatigue, fever(s), headache(s), weight gain or weight loss Eyes Eyes: Reports systems reviewed and no addt'l complaints, except as documented; Denies blurry vision, change in vision, loss of central vision, loss of peripheral vision or loss of vision ENT HEENT: Reports systems reviewed and no addt'l complaints, except as documented; Denies abnormal hearing, dysphagia, epistaxis, facial pain, hearing loss, nasal congestion, nasal discharge, neck pain, sinus pain or sinus pressure Cardiovascular Cardiovascular: Reports systems reviewed and no addt'l complaints, except as documented; Denies chest pain, chest pain at rest, chest pain with activity, dyspnea, palpitations or syncope Respiratory/Chest Respiratory/Chest: Reports systems reviewed and no addt'l complaints, except as documented; Denies cough, dyspnea, productive cough, shortness of breath at rest, shortness of breath with exertion or wheezing Gastrointestinal Gastrointestinal: Reports systems reviewed and no addt'l complaints, except as documented; Denies abdominal pain, bloating, change in bowel habits, coffee haris und emesis, constipation, diarrhea, dysphagia, hematemesis, hematochezia, melena, nausea, rectal bleeding or vomiting Genitourinary Genitourinary: Reports systems reviewed and no addt'l complaints, except as documented; Denies change in urinary stream, difficulty urinating, dysuria, flank pain, genital pain, hematuria, urinary frequency, urinary incontinence or urinary urgency Musculoskeletal Musculoskeletal: Reports systems reviewed and no addt'l complaints, except as documented; Denies abnormal gait, back pain, difficulty walking, joint pain, joint swelling, limited range of motion, muscle spasms, muscle weakness or numbness Integumentary Integumentary: Reports systems reviewed and no addt'l complaints, except as documented; Denies jaundice, new lesions, non-healing lesions, rash or skin ulcer Neurologic Neurologic: Reports systems reviewed and no addt'l complaints, except as documented; Denies abnormal gait, dizziness, focal weakness, loss of vision, numbness, paresthesias, tingling or weakness Psychiatric Psychiatric: Reports systems reviewed and no addt'l complaints, except as documented; Denies anxiety or depression Endocrine Endocrinology: Reports systems reviewed and no addt'l complaints, except as documented; Denies flushing, heat intolerance or palpitations Hematologic/Lymphatic Hematologic/Lymphatic: Reports systems reviewed and no addt'l complaints, except as documented, easy bleeding and easy bruising Allergic/Immunologic Allergic/Immunologic: Reports systems reviewed and no addt'l complaints, except as documented Physical Exam Const alert, oriented x3 and no apparent distress HEENT normocephalic Eyes PERRL Neck Neck Narrative: Thick, short neck. Left central line noted and right temporary dialysis catheter noted Resp normal respiratory effort, no retractions and clear to auscultation bilaterally Effort and Inspection: able to speak in complete sentences Cardio Rate: regular rate Rhythm: regular rhythm GI normal to inspection, nondistended, normoactive bowel sounds GI Narrative: Morbidly obese Bladder / Kidney Exam: no CVA tenderness Back/Spine no CVA tenderness Extremity no calf tenderness Skin no rashes or lesions noted Neuro CN's II-XII intact bilaterally Lab / Micro Data Result Diagrams: 05/22/22 06:00 05/22/22 06:00 Labs: Laboratory Results - last 24 hr 05/18/22 21:12: Crossmatch See Detail 05/21/22 16:19: POC Glucose 291 H 05/21/22 21:27: POC Glucose 262 H 05/22/22 06:00: WBC 8.7, RBC 2.88 L, Hgb 9.0 L, Hct 29.1 L, MCV 101.0 H, MCH 31.3, MCHC 30.9 L, RDW Std Deviation 60.1 H, RDW Coeff of Petty 17.2 H, Plt Count 143 L, MPV 10.7, Immature Gran % (Auto) 2.800 H, Neut % (Auto) 75.4 H, Lymph % (Auto) 8.3 L, [place] % (Auto) 9.5, Eos % (Auto) 3.4, Baso % (Auto) 0.6, Absolute Neuts (auto) 6.5, Absolute Lymphs (auto) 0.72 L, Nucleated RBC % 0.2 05/22/22 06:00: Sodium 139, Potassium 4.6, Chloride 105, Carbon Dioxide 25.0, Anion Gap 9, BUN 52 H, Creatinine 3.20 H, Estim Creat Clear Calc 17.79, Est GFR (MDRD) Af Amer 24 L, Est GFR (MDRD) Non-Af 20 L, BUN/Creatinine Ratio 16.2, Glucose 290 H, Calcium 8.4 L 05/22/22 06:15: POC Glucose 280 H 05/22/22 11:29: POC Glucose 286 H Rhythm Strip Rhythm Strip: A-fib Rate: 104 Charges/Coding Visit Charges Inpatient E&M: 44773 Subs Hosp L2
[2022-05-22] MEDS: Heparin 10,000 UNITS/10 ML Vial IV (16:30)
[2022-05-22 16:35] LABS: Bedside Glucose 156 mg/dL (74-106)
--- NOTE | 2022-05-22 17:53 | PN_ITS ---
Subjective Subjective Patient does not have any worsening abdominal pain and has not had any bleeding since undergoing colonoscopy. Objective Data Objective Data Vital Signs: Vital Signs Temp Pulse Resp BP Pulse Ox O2 Del Method O2 Flow Rate 97.7 F L 59 L 20 H 142/58 H 97 Nasal Cannula 2 05/22/22 17:25 05/22/22 17:25 05/22/22 17:25 05/22/22 17:25 05/22/22 17:25 05/22/22 17:25 05/22/22 17:25 Oxygen Flow Rate (L/min) 2 Oxygen Delivery Method Nasal Cannula Weight: 353 lb 2.888 oz Body Mass Index (BMI) 57.3 Intake & Output: Intake and Output for Last 24 Hours 05/20/22 05/21/22 05/22/22 23:59 23:59 23:59 Intake Total 573.16 / 673.16 1251 / 1351 1055.58 / 1055.58 Output Total 900 / 900 675 / 875 3475 / 3475 Balance -326.84 / -226.84 576 / 476 -2419.42 / -2419.42 Lab / Micro Data Result Diagrams: 05/22/22 06:00 05/22/22 06:00 Labs: Laboratory Results - last 24 hr 05/18/22 21:12: Crossmatch See Detail 05/21/22 21:27: POC Glucose 262 H 05/22/22 06:00: WBC 8.7, RBC 2.88 L, Hgb 9.0 L, Hct 29.1 L, MCV 101.0 H, MCH 31.3, MCHC 30.9 L, RDW Std Deviation 60.1 H, RDW Coeff of Petty 17.2 H, Plt Count 143 L, MPV 10.7, Immature Gran % (Auto) 2.800 H, Neut % (Auto) 75.4 H, Lymph % (Auto) 8.3 L, [place] % (Auto) 9.5, Eos % (Auto) 3.4, Baso % (Auto) 0.6, Absolute Neuts (auto) 6.5, Absolute Lymphs (auto) 0.72 L, Nucleated RBC % 0.2 05/22/22 06:00: Sodium 139, Potassium 4.6, Chloride 105, Carbon Dioxide 25.0, Anion Gap 9, BUN 52 H, Creatinine 3.20 H, Estim Creat Clear Calc 17.79, Est GFR (MDRD) Af Amer 24 L, Est GFR (MDRD) Non-Af 20 L, BUN/Creatinine Ratio 16.2, Glucose 290 H, Calcium 8.4 L 05/22/22 06:15: POC Glucose 280 H 05/22/22 11:29: POC Glucose 286 H 05/22/22 16:22: POC Glucose 156 H Rhythm Strip Rhythm Strip: A-fib Rate: 104 Physical Exam Const alert, oriented x3 and no apparent distress HEENT normocephalic Eyes PERRL Neck Neck Narrative: Thick, short neck. Left central line noted and right temporary dialysis catheter noted Resp normal respiratory effort, no retractions and clear to auscultation bilaterally Effort and Inspection: able to speak in complete sentences Cardio Rate: regular rate Rhythm: regular rhythm GI normal to inspection, nondistended, normoactive bowel sounds GI Narrative: Morbidly obese Bladder / Kidney Exam: no CVA tenderness Back/Spine no CVA tenderness Extremity no calf tenderness Skin no rashes or lesions noted Neuro CN's II-XII intact bilaterally Assessment & Plan Assessment/Plan (1) Gastrointestinal bleeding: QUALIFIERS: GI bleed type/associated pathology: unspecified gastrointestinal hemorrhage type Qualified Code(s): K92.2 - Gastrointestinal hemorrhage, unspecified PLAN: GI bleeding secondary to acute diverticular bleed status post colonoscopy endoscopic treatment. He is doing very well from a GI standpoint and his hemoglobin seems to be stable. There are no contraindications for anticoagulation from a GI standpoint at this time. I will add a stool softener to keep his stools soft as possible as he does have 2 clips that are in his colon to site where he had a diverticular bleed. Charges/Coding Visit Charges Inpatient E&M: 35204 Subs Hosp L2
--- NOTE | 2022-05-22 17:55 | DIALYSIS ---
Hemodialysis x3.5 hours completed at 1715 on a 2K bath, 3rd treatment, tolerated well, UF 3000mL, CritLine maintained profile A, accessed via right neck temporary dialysis catheter, worked well, dressing changed, plans for tunneled catheter tomorrow, next dialysis planned for Thursday
--- NOTE | 2022-05-22 19:23 | PCM.PN.HOSP ---
Subjective Subjective Patient was seen and examined today, his creatinine today was worse than yesterday, I talked briefly with nephrology who advised that a tunneled dialysis catheter be placed, I contacted Dr. Severino for this-he has seen the patient before. This also will necessitate the patient being discharged to another half-way besides TCU-they do not take dialysis patients. Objective Data Objective Data Vital Signs: Vital Signs Temp Pulse Resp BP Pulse Ox O2 Del Method O2 Flow Rate 97.7 F L 59 L 20 H 142/58 H 97 Nasal Cannula 2 05/22/22 17:25 05/22/22 17:25 05/22/22 17:25 05/22/22 17:25 05/22/22 17:25 05/22/22 17:25 05/22/22 17:25 Oxygen Flow Rate (L/min) 2 Oxygen Delivery Method Nasal Cannula Weight: 160.2 kg Body Mass Index (BMI) 57.3 Intake & Output: Intake and Output for Last 24 Hours 05/20/22 05/21/22 05/22/22 23:59 23:59 23:59 Intake Total 573.16 / 673.16 1251 / 1351 1175.58 / 1175.58 Output Total 900 / 900 675 / 875 3475 / 3475 Balance -326.84 / -226.84 576 / 476 -2299.42 / -2299.42 Lab / Micro Data Result Diagrams: 05/23/22 04:58 05/23/22 04:58 Labs: Laboratory Results - last 24 hr 05/18/22 21:12: Crossmatch See Detail 05/21/22 21:27: POC Glucose 262 H 05/22/22 06:00: WBC 8.7, RBC 2.88 L, Hgb 9.0 L, Hct 29.1 L, MCV 101.0 H, MCH 31.3, MCHC 30.9 L, RDW Std Deviation 60.1 H, RDW Coeff of Petty 17.2 H, Plt Count 143 L, MPV 10.7, Immature Gran % (Auto) 2.800 H, Neut % (Auto) 75.4 H, Lymph % (Auto) 8.3 L, [place] % (Auto) 9.5, Eos % (Auto) 3.4, Baso % (Auto) 0.6, Absolute Neuts (auto) 6.5, Absolute Lymphs (auto) 0.72 L, Nucleated RBC % 0.2 05/22/22 06:00: Sodium 139, Potassium 4.6, Chloride 105, Carbon Dioxide 25.0, Anion Gap 9, BUN 52 H, Creatinine 3.20 H, Estim Creat Clear Calc 17.79, Est GFR (MDRD) Af Amer 24 L, Est GFR (MDRD) Non-Af 20 L, BUN/Creatinine Ratio 16.2, Glucose 290 H, Calcium 8.4 L 05/22/22 06:15: POC Glucose 280 H 05/22/22 11:29: POC Glucose 286 H 05/22/22 16:22: POC Glucose 156 H Rhythm Strip Rhythm Strip: A-fib Rate: 104 Physical Exam Const alert, oriented x3 and no apparent distress Constitutional Narrative: Patient is morbidly obese General Appearance: cooperative, well kempt and well developed Orientation / Consciousness: awake, oriented to person, oriented to place and oriented to time HEENT normocephalic and moist oral mucous membranes Eyes PERRL, EOMs intact bilaterally and conjunctivae normal Neck nuchal rigidity, supple, no JVD, thyroid normal and no carotid bruits General: trachea midline Resp normal respiratory effort, no retractions, no use of accessory muscles and clear to auscultation bilaterally Auscultation: Negative for rales, rhonchi or wheezes Cardio regular rate, regular rhythm, S1 normal heart sound, S2 normal heart sound, no murmurs, no rub and no gallops GI normal to inspection, nondistended, normoactive bowel sounds, soft to palpation, non-tender and non-distended Extremity Extremity Narrative: Generalized lower extremity edema is noted bilaterally Skin no rashes or lesions noted General Skin Exam: no breakdown Neuro oriented x3, CN's II-XII intact bilaterally, no focal motor deficits and no sensory deficits noted Sensorium / Orientation: awake and alert Speech: speech normal Psych affect normal Assessment & Plan Assessment/Plan (1) Acute kidney injury superimposed on CKD: PLAN: Plan 1. Upper GI bleed secondary to gastric ulcers with blood loss anemia requiring blood transfusions-patient's hemoglobin today was 9 which appears stable, CBC will be monitored. Patient is on a PPI. #2 shock secondary to acute blood loss anemia-corrected at this time #3 acute kidney injury superimposed on chronic kidney disease stage IIIb/IV-patient is now undergoing dialysis, he will have a tunneled catheter placed today #4 hyperkalemia-resolved at this time #5 chronic diastolic heart failure-continue present medications #6 type 2 diabetes-continue to monitor blood sugars and give sliding scale insulin #7 morbid obesity-complicates recovery, care, and prognosis. #9 chronic atrial fibrillation-patient cannot be anticoagulated at this this time due to his recent GI bleed, continue with rate control medication Charges/Coding Visit Charges Inpatient E&M: 69669 Subs Hosp L2
--- NOTE | 2022-05-22 21:31 | PCM.PN.REN ---
Subjective Subjective no new complaints Objective Data Objective Data Vital Signs: Vital Signs Temp Pulse Resp BP Pulse Ox O2 Del Method O2 Flow Rate 97.7 F L 54 L 20 H 142/58 H 97 Nasal Cannula 2 05/22/22 17:25 05/22/22 19:00 05/22/22 17:25 05/22/22 17:25 05/22/22 17:25 05/22/22 20:00 05/22/22 20:00 Oxygen Flow Rate (L/min) 2 Oxygen Delivery Method Nasal Cannula Weight: 160.2 kg Body Mass Index (BMI) 57.3 Intake & Output: Intake and Output for Last 24 Hours 05/20/22 05/21/22 05/22/22 23:59 23:59 23:59 Intake Total 573.16 / 673.16 1251 / 1351 1175.58 / 1175.58 Output Total 900 / 900 675 / 875 3475 / 3475 Balance -326.84 / -226.84 576 / 476 -2299.42 / -2299.42 Lab / Micro Data Result Diagrams: 05/22/22 06:00 05/22/22 06:00 Labs: Laboratory Results - last 24 hr 05/18/22 21:12: Crossmatch See Detail 05/21/22 21:27: POC Glucose 262 H 05/22/22 06:00: WBC 8.7, RBC 2.88 L, Hgb 9.0 L, Hct 29.1 L, MCV 101.0 H, MCH 31.3, MCHC 30.9 L, RDW Std Deviation 60.1 H, RDW Coeff of Petty 17.2 H, Plt Count 143 L, MPV 10.7, Immature Gran % (Auto) 2.800 H, Neut % (Auto) 75.4 H, Lymph % (Auto) 8.3 L, [place] % (Auto) 9.5, Eos % (Auto) 3.4, Baso % (Auto) 0.6, Absolute Neuts (auto) 6.5, Absolute Lymphs (auto) 0.72 L, Nucleated RBC % 0.2 05/22/22 06:00: Sodium 139, Potassium 4.6, Chloride 105, Carbon Dioxide 25.0, Anion Gap 9, BUN 52 H, Creatinine 3.20 H, Estim Creat Clear Calc 17.79, Est GFR (MDRD) Af Amer 24 L, Est GFR (MDRD) Non-Af 20 L, BUN/Creatinine Ratio 16.2, Glucose 290 H, Calcium 8.4 L 05/22/22 06:15: POC Glucose 280 H 05/22/22 11:29: POC Glucose 286 H 05/22/22 16:22: POC Glucose 156 H Rhythm Strip Rhythm Strip: A-fib Rate: 104 Physical Exam Narrative Alert awake oriented x 3 no obvious distress no pallor no icterus no JVD s1s2 no murmurs lungs clear abdomen soft no organomegaly no edema no cyanosis erwin + Const alert and oriented x3 General Appearance: cooperative Orientation / Consciousness: awake HEENT normocephalic Eyes General Eye: normal appearance of both eyes Assessment & Plan Assessment/Plan (1) Gastrointestinal bleeding: QUALIFIERS: GI bleed type/associated pathology: unspecified gastrointestinal hemorrhage type Qualified Code(s): K92.2 - Gastrointestinal hemorrhage, unspecified (2) Acute blood loss anemia: (3) Hemorrhagic shock: (4) Chronic kidney disease, stage IV (severe): PLAN: Plan Acute renal failure CKD stage IIIb Hyperkalemia Started on dialysis on Thursday. Received dialysis Thursday and Thursday. Cr worse. resume dialysis. tunneled line. HD unit placement as SAQIB. seen on HD
[2022-05-22] MEDS: Docusate Sodium 100 MG Capsule PO (22:05)
[2022-05-23] VITALS (18 sets, daily range): BP systolic 105–152; BP diastolic 42–77; PULSE 57–99; RESP 16–18; TEMP 36–36.7; O2SAT 92–100; BMI 54.5
[2022-05-23] MEDS: Morphine 2 MG/ML Syringe IV ×2 (02:41→18:48)
[2022-05-23 05:33] LABS: Absolute Lymphocyte Count 1.42 X10^3/uL (0.83-4.51); Absolute Neutrophil Count 4.8 X10^3/uL (2.0-7.7); Basophil# 0.06 X10^3/uL; Basophil% 0.8 % (0-1); Eosinophil# 0.49 X10^3/uL; Eosinophils% 6.2 % (0-5); Hematocrit 28.6 % (40-54); Hemoglobin 8.6 g/dL (13.0-16.5); Lymphocyte # 1.42 X10^3/ul (0.83-4.51); Lymphocyte % 18.1 % (19-41); Mean Corp Hgb Conc 30.1 g/dL (32-36); Mean Corpuscular Hgb 30.6 pg (27.0-32.0); Mean Corpuscular Volume 101.8 fL (80-94); Monocyte# 0.95 X10^3/uL; Monocyte% 12.1 % (0-10); NRBC Flagged by Analyzer 0.3 % (0-5); Neutrophil # 4.76 X10^3/uL (2.7-7.7); Neutrophil % 60.5 % (47-70); Platelet Count 139 K/mm3 (150-450); RBC Distribution Width CV 17.2 % (11.6-14.6); RBC Distribution Width SD 60.5 fl (35.1-43.9); Red Blood Count 2.81 M/mm3 (4.6-6.2); White Blood Count 7.9 K/mm3 (4.4-11.0)
--- NOTE | 2022-05-23 05:59 | EKG12_ITS ---
Test Reason : Blood Pressure : / mmHG Vent. Rate : 064 BPM Atrial Rate : 063 BPM P-R Int : 000 ms QRS Dur : 212 ms QT Int : 518 ms P-R-T Axes : 000 078 -08 degrees QTc Int : 534 ms Atrial fibrillation Right bundle branch block Abnormal ECG Confirmed by FRANKO AG, RJ ([id number]), communications editor SAMANTA LEE ([id number]) on 05/28/2022 9:01:19 AM Referred By: MCKENZIE Confirmed By:RJ ABDUL MD
[2022-05-23 06:00] LABS: Anion Gap 9 (5-15); BUN 27 mg/dL (7-18); Calcium,Total 7.7 mg/dL (8.5-10.1); Chloride 100 mmol/L (98-107); EST Glomerular Filtration Rate 22 mL/min (>60); Est Glom Filt Rate - Afr Amer 26 mL/min (>60); Estimated Creatinine Clearance 18.97 ml/min; Glucose 259 mg/dL (74-106); Potassium 3.5 mmol/L (3.5-5.1); Sodium Level 135 mmol/L (136-145)
[2022-05-23] MEDS: Nystatin Powder 15gm Bottle 1 APPLIC TOPICAL ×3 (06:44→22:03)
[2022-05-23] MEDS: Menthol/Lanolin/Calamine/Znox 113 GM Tube 1 APPLIC TOPICAL ×3 (06:45→22:04)
[2022-05-23 07:11] LABS: Bedside Glucose 264 mg/dL (74-106)
[2022-05-23 07:43] LABS: Hemoglobin A1c 5.9 % (3.8-5.6)
[2022-05-23] MEDS: 0.9% Normal Saline 1,000 ML 15 ML IV ×2 (07:58→09:42)
--- NOTE | 2022-05-23 09:08 | PCM.PN.REN ---
Subjective Subjective no new complaints Objective Data Objective Data Vital Signs: Vital Signs Temp Pulse Resp BP Pulse Ox O2 Del Method O2 Flow Rate 97.6 F L 63 18 134/60 H 98 Nasal Cannula 2 05/23/22 08:00 05/23/22 08:00 05/23/22 08:00 05/23/22 08:00 05/23/22 08:00 05/23/22 08:03 05/23/22 08:03 Oxygen Flow Rate (L/min) 2 Oxygen Delivery Method Nasal Cannula Weight: 159.4 kg Body Mass Index (BMI) 54.5 Intake & Output: Intake and Output for Last 24 Hours 05/21/22 05/22/22 05/23/22 23:59 23:59 23:59 Intake Total 1251 / 1351 1175.58 / 1175.58 351 / 351 Output Total 675 / 875 3475 / 3575 200 / 200 Balance 576 / 476 -2299.42 / -2399.42 151 / 151 Lab / Micro Data Result Diagrams: 05/23/22 04:58 05/23/22 04:58 Labs: Laboratory Results - last 24 hr 05/22/22 11:29: POC Glucose 286 H 05/22/22 16:22: POC Glucose 156 H 05/23/22 04:58: WBC 7.9, RBC 2.81 L, Hgb 8.6 L, Hct 28.6 L, MCV 101.8 H, MCH 30.6, MCHC 30.1 L, RDW Std Deviation 60.5 H, RDW Coeff of Petty 17.2 H, Plt Count 139 L, MPV 11.0, Immature Gran % (Auto) 2.300 H, Neut % (Auto) 60.5, Lymph % (Auto) 18.1 L, [place] % (Auto) 12.1 H, Eos % (Auto) 6.2 H, Baso % (Auto) 0.8, Absolute Neuts (auto) 4.8, Absolute Lymphs (auto) 1.42, Nucleated RBC % 0.3 05/23/22 04:58: Sodium 135 L, Potassium 3.5, Chloride 100, Carbon Dioxide 26.0, Anion Gap 9, BUN 27 H, Creatinine 3.00 H, Estim Creat Clear Calc 18.97, Est GFR (MDRD) Af Amer 26 L, Est GFR (MDRD) Non-Af 22 L, BUN/Creatinine Ratio 9.0 L, Glucose 259 H, Calcium 7.7 L 05/23/22 06:42: POC Glucose 264 H 05/23/22 07:00: APTT 31.0 05/23/22 07:00: Hemoglobin A1c 5.9 H Rhythm Strip Rhythm Strip: A-fib Rate: 104 Physical Exam Narrative Alert awake oriented x 3 no obvious distress no pallor no icterus no JVD s1s2 no murmurs lungs clear abdomen soft no organomegaly no edema no cyanosis Const alert and oriented x3 General Appearance: cooperative Orientation / Consciousness: awake HEENT normocephalic Eyes General Eye: normal appearance of both eyes Assessment & Plan Assessment/Plan (1) Gastrointestinal bleeding: QUALIFIERS: GI bleed type/associated pathology: unspecified gastrointestinal hemorrhage type Qualified Code(s): K92.2 - Gastrointestinal hemorrhage, unspecified (2) Acute blood loss anemia: (3) Hemorrhagic shock: (4) Chronic kidney disease, stage IV (severe): PLAN: Plan Acute renal failure CKD stage IIIb Hyperkalemia started HD thursday last week. last HD 05/22. Tunneled line today. for HD tomorrow. dc plans. needs placement in dialysis unit. paperwork sent
[2022-05-23 10:10] LABS: Bedside Glucose 267 mg/dL (74-106)
--- NOTE | 2022-05-23 10:20 | CASEMGMT ---
Addendum entered by Nita Victoria 05/23/22 15:52: This RN CM attempted to call [facility] and call went to voicemail. Per Becca at [facility], she has transportation set up for pt for thursday. Call back to [facility] and she will check with facility director regarding chair time. CM to follow. If precert obtained, [facility] will notify PCU directly. Snow HOLT CM Addendum entered by Nita Victoria 05/23/22 15:38: Tunnel cath note and CXR faxed to [facility]. CM awaiting call from [facility] admissions. Snow HOLT CM Addendum entered by Nita Victoria 05/23/22 15:08: Call to [facility] and she states she has everything she needs for referral and states she will reach out to admissions for confirmation of chair time. [facility]'s contact info: [phone] ext [phone]. CM to follow. Snow HOLT CM Addendum entered by Nita Victoria 05/23/22 13:59: [facility] Snow RN CM Addendum entered by Nita Victoria 05/23/22 13:30: Call from [facility] and she is aware that run sheets just faxed. She states pt will have MWF chair time 2nd shift. Debra BISHOP aware and [facility] to be notified to start precert. Call to Moshe at [facility] to notify of change in dialysis center d/t chair time and transportation, voices understanding and states he will take care of notifying admissions. CM to follow for [facility] chair time. Snow RN CM Addendum entered by Nita Victoria 05/23/22 13:14: Dialysis run sheets faxed to [facility]. Snow RN CM Addendum entered by Nita Victoria 05/23/22 11:42: Per Debra BISHOP, pt's son, Maynor(whom he defers to for all decisions), is agreeable to referral being faxed to [facility]. Referral faxed. CM to follow. Snow HOLT CM Addendum entered by Nita Victoria 05/23/22 11:29: Per Debra BISHOP, [facility] is having trouble getting transportation set up for MWF at 0550. Per [facility], they could transport pt anytime between [phone]. Call to [facility] and they would have a 2nd shift chair time available. CM to follow. Snow HOLT CM Original Note: Hep B and CXR faxed to [facility] and this RN BAILEE will fax run sheets once pt returns from OR where he is getting tunnel cath. Call to Moshe at [facility] and he states pt will have MWF chair time of 0550, with 0530 arrival time. Debra SW aware, voices understanding. CM to follow. Snow HOLT CM
--- NOTE | 2022-05-23 11:27 | OP.PCM_ITS ---
Report of Operation Date of Procedure: 05/23/22 Pre-Operative Diagnosis: 1. Acute on chronic kidney failure requiring hemodial ysis 2. Prior placement of right internal jugular temporary hemodialysis catheter Post-Operative Diagnosis: Same Surgery/Procedure Performed:: Placement of right internal jugular tunneled hemodialysis catheter via catheter exchange Description of Surgical Findings:: ? Catheter tip position at the level of the júnior ? Well-functioning catheter with easy aspiration and flush Surgeon: Josep Severino tax processor: None Type of Anesthesia: MAC/Supplemental/Local Anesthesiologist: David Hansen Specimen's removed: NA Drains: NA Estimated Blood Loss (mL): 20 Description of Procedure: After appropriate identification in the preoperative holding area the patient was brought to the operating room where that they were positioned supine on the operating room table. Preoperative antibiotics were completely administered. Sedation was begun per anesthesia and the patient's right neck/catheter was prepped and draped in usual sterile fashion. Formal timeout was conducted to confirm both the patient and the procedure. Procedure was begun with removal of the sutures tying in the temporary hemodialysis catheter and then a 035 guidewire was fed through one of the catheter lumens. Fluoroscopy confirmed appropriate position of the wire. Alternating holding pressure in the neck, the kit dilators were serially placed and then our peel-away sheath was placed under fluoroscopy. Desiring some room for the patient's tunneling/cuff placement, I selected a 19 cm length catheter. The insertion site was then enlarged sharply and bluntly. Measuring back from the proximal insertion site on the catheter, we determined that the tunneling site would need to be at least 8.5 cm away from the insertion site. Therefore this was measured out on the patient's chest and a counterincision was made at this point after instilling local anesthetic. A gentle curve of the tunneling tract to the insertion site was also instilled with local anesthetic. Then the catheter was connected to the tunneling device and was tunneled to the insertion site. The catheter was fed through the peel- away sheath. Upon completion another fluoroscopy image was obtained and showed the catheter in good position within the superior vena cava. Functionally, the catheter was tested with aspiration and flush of injectable saline which it did with ease. The insertion site was then closed with a single interrupted 3-0 Vicryl stitch at the dermis followed by 2X 3-0 nylon interrupted. Another 3-0 nylon stitch was used to close down the insertion site at the tunneling entrance as a means of creating a cerclage. Lastly, the catheter was secured at the tiedown points on each port with a interrupted 3-0 nylon. Now the catheter was locked with 2 mL heparinized saline (concentration 1000 units/mL) per package specification. A Biopatch was placed around the tunneling site. The catheter was dressed with several plain 4 x 4 gauzes and taped into place with a 3000 drape. Patient was then allowed to emerge from sedation and was taken to PACU in stable condition. A chest x-ray was ordered in PACU for review of the catheter placement and to exclude pneumothorax. Complications None Admit VTE Documentation VTE Mechan Device Prophylaxis: SCD's Procedures Cardiovascular CF Procedures [id number]: [id number] Insert tunneled cv cath
--- NOTE | 2022-05-23 11:36 | CASEMGMT ---
Patient's chair time with dialysis at [facility] is M,W, and F at 5:50am with 5:30 arrival. Holley let Becca at [facility] know this information and she will see if she can set up transport. Becca did eventually get back to [facility] and they are not able to accommodate that chair time. Becca even called Moshe with [facility] and they have no other chair times. DARIO spoke with Becca and DARIO asked what times would work. Their transporter works 8-5 M-F. Becca said anytime within that time would work. DARIO told Becca SW will call family and also check with [facility]. SW called patient's son, Maynor. SW explained the situation and family would likely not be able to accommodate taking patient at that time either. Maynor was okay with trying [facility] dialysis instead. DARIO notified RN BAILEE and she is going to see what [facility] has available. Simi Samuels GAS SCRUBBER OPERATOR [employer] WARFARE OPERATOR
--- NOTE | 2022-05-23 11:38 | RAD_ITS ---
STUDY: X-RAY CHEST REASON FOR EXAM: Male, 76 years old. DIALYSIS CATHETER PLACEMENT TECHNIQUE: Single AP portable view of the chest. COMPARISON: Comparison is made with prior study dated 05/17/2022. FINDINGS: A right-sided dialysis catheter was placed. The tip is in the midportion of the superior vena cava. Stable appearance of the left central catheter. The tip is at the junction of the left brachiocephalic vein and superior vena cava. Mild degree of vascular congestion. Bibasilar atelectasis and/or infiltrates worse at the left lung base. Blunting of both angles. There is moderate cardiac enlargement. Normal mediastinum and navi. Normal visualized pulmonary arteries. There is atherosclerotic calcification of the aortic arch with tortuosity. There are diffuse degenerative changes of the visualized thoracic spine. Normal visualized ribs, clavicles, and shoulders. There is no demonstrated abnormality of the visualized soft tissue structures of the upper abdomen. RAD/Chest 1 View (Portable) IMPRESSION: The tip of the right dialysis catheter is in the midportion of the superior vena cava. Stable appearance of the left central catheter. CHF with bibasilar atelectasis and/or infiltrates more prominent on the left base. Blunting of both costophrenic angles worse on the left side. Electronically Signed: Evan Kirkland MD at 12:35 EDT ,
[2022-05-23] MEDS: Fluticasone 0.05% 1 SPRAY NASAL.SRY NASAL ×2 (12:59→22:02)
[2022-05-23] MEDS: Azelastine HCl NASAL.SRY 1 SPRAY NASAL ×2 (12:59→22:01)
[2022-05-23] MEDS: Insulin Glargine-YFGN 100 UNIT/ML Pen 10 UNIT SC (13:00)
[2022-05-23] MEDS: Sucralfate 1 GM Tablet PO ×2 (13:16→22:05)
[2022-05-23] MEDS: Metoprolol Tartrate 50 MG Tablet PO ×2 (13:16→22:05)
[2022-05-23] MEDS: Docusate Sodium 100 MG Capsule PO ×2 (13:16→22:05)
--- NOTE | 2022-05-23 13:25 | WOUNDNOTE ---
In to reassess bilateral lower legs. removed the dressings from the RLE. there was minimal drainage noted on the old dressings. plan to leave [facility] at this time since most of the blistered areas are now dry. patient is not having much pain now with dressing changes.
[2022-05-23 13:31] LABS: Bedside Glucose 254 mg/dL (74-106)
--- NOTE | 2022-05-23 13:35 | NURSING ---
This RN called and updated pt's son, Maynor.
--- NOTE | 2022-05-23 13:37 | CASEMGMT ---
Discharge Activities Officer Becca from [facility] can accept patient. Becca will start pre-cert. Discharge Activities Officer faxed over current PT/OT notes. [facility] can transport patient to [facility] dialysis . Second shift chair time. Actual chair time is still pending. [facility] Hampton Discharge Activities Officer
[2022-05-23] MEDS: Acetaminophen 325 MG Tablet 650 MG PO ×2 (13:48→22:16)
[2022-05-23] MEDS: Insulin Lispro 100 UNIT/ML INSULN.PEN SC (15:29)
[2022-05-23 15:36] LABS: Bedside Glucose 263 mg/dL (74-106)
--- NOTE | 2022-05-23 15:50 | CASEMGMT ---
DARIO called Becca at [facility] and she will call U if she gets insurance authorization from [facility]. Becca has transportation set up for Thursday. Plan: d/c to [facility] pending pre-cert. Simi MOTA
--- NOTE | 2022-05-23 17:24 | NURSING ---
Moshe from [facility] phoned to inform us that [facility] can not take patient on as a dialysis client and Penny will be performing his dialysis when he is transferred to [facility]. [facility] is aware of the change.
--- NOTE | 2022-05-23 18:17 | PN_ITS ---
Subjective Subjective Patient is doing well without any complaints. He underwent successful tunneled catheter placement for hemodialysis today. Objective Data Objective Data Vital Signs: Vital Signs Temp Pulse Resp BP Pulse Ox O2 Del Method O2 Flow Rate 97.1 F L 70 18 105/48 L 98 Nasal Cannula 2 05/23/22 16:45 05/23/22 16:45 05/23/22 16:45 05/23/22 16:45 05/23/22 16:45 05/23/22 16:45 05/23/22 16:45 Oxygen Flow Rate (L/min) 2 Oxygen Delivery Method Nasal Cannula Weight: 351 lb 6.669 oz Body Mass Index (BMI) 54.5 Intake & Output: Intake and Output for Last 24 Hours 05/21/22 05/22/22 05/23/22 23:59 23:59 23:59 Intake Total 1251 / 1351 1175.58 / 1175.58 991.42 / 991.42 Output Total 675 / 875 3475 / 3575 365 / 365 Balance 576 / 476 -2299.42 / -2399.42 626.42 / 626.42 Lab / Micro Data Result Diagrams: 05/23/22 04:58 05/23/22 04:58 Labs: Laboratory Results - last 24 hr 05/23/22 04:58: WBC 7.9, RBC 2.81 L, Hgb 8.6 L, Hct 28.6 L, MCV 101.8 H, MCH 30.6, MCHC 30.1 L, RDW Std Deviation 60.5 H, RDW Coeff of Petty 17.2 H, Plt Count 139 L, MPV 11.0, Immature Gran % (Auto) 2.300 H, Neut % (Auto) 60.5, Lymph % (Auto) 18.1 L, [place] % (Auto) 12.1 H, Eos % (Auto) 6.2 H, Baso % (Auto) 0.8, Absolute Neuts (auto) 4.8, Absolute Lymphs (auto) 1.42, Nucleated RBC % 0.3 05/23/22 04:58: Sodium 135 L, Potassium 3.5, Chloride 100, Carbon Dioxide 26.0, Anion Gap 9, BUN 27 H, Creatinine 3.00 H, Estim Creat Clear Calc 18.97, Est GFR (MDRD) Af Amer 26 L, Est GFR (MDRD) Non-Af 22 L, BUN/Creatinine Ratio 9.0 L, Glucose 259 H, Calcium 7.7 L 05/23/22 06:42: POC Glucose 264 H 05/23/22 07:00: APTT 31.0 05/23/22 07:00: Hemoglobin A1c 5.9 H 05/23/22 10:01: POC Glucose 267 H 05/23/22 12:55: POC Glucose 254 H 05/23/22 15:28: POC Glucose 263 H Radiography Diagnostic Testing: Radiology Impression Chest X-Ray 05/23/22 11:38 IMPRESSION: The tip of the right dialysis catheter is in the midportion of the superior vena cava. Stable appearance of the left central catheter. CHF with bibasilar atelectasis and/or infiltrates more prominent on the left base. Blunting of both costophrenic angles worse on the left side. Electronically Signed: Evan Kirkland MD at 12:35 EDT , Rhythm Strip Rhythm Strip: A-fib Rate: 104 Physical Exam Narrative Alert awake oriented x 3 no obvious distress no pallor no icterus no JVD s1s2 no murmurs lungs clear abdomen soft no organomegaly no edema no cyanosis Const alert and oriented x3 General Appearance: cooperative Orientation / Consciousness: awake HEENT normocephalic Eyes General Eye: normal appearance of both eyes Assessment & Plan Assessment/Plan (1) Gastrointestinal bleeding: QUALIFIERS: GI bleed type/associated pathology: unspecified gastrointestinal hemorrhage type Qualified Code(s): K92.2 - Gastrointestinal hemorrhage, unspecified PLAN: he is not having no more GI bleeding at this time. Acute diverticular bleed treated endoscopically. I ordered stool softeners for him to take twice a day for the next 7 days. After that he can take it once a day. No contraindication for anticoagulation at this time. Charges/Coding Visit Charges Inpatient E&M: 81831 [facility] Hosp L1
--- NOTE | 2022-05-23 18:40 | PN.HOSP_ITS ---
Subjective Subjective Patient was seen and examined today, we did not receive approval for the patient to go to a [facility] facility today. Patient had a tunneled dialysis catheter placed today. I talked briefly with gastroenterology, his octreotide drip will be discontinued and his Protonix drip will be also discontinued. Objective Data Objective Data Vital Signs: Vital Signs Temp Pulse Resp BP Pulse Ox O2 Del Method O2 Flow Rate 97.1 F L 70 18 105/48 L 98 Nasal Cannula 2 05/23/22 16:45 05/23/22 16:45 05/23/22 16:45 05/23/22 16:45 05/23/22 16:45 05/23/22 16:45 05/23/22 16:45 Oxygen Flow Rate (L/min) 2 Oxygen Delivery Method Nasal Cannula Weight: 159.4 kg Body Mass Index (BMI) 54.5 Intake & Output: Intake and Output for Last 24 Hours 05/21/22 05/22/22 05/23/22 23:59 23:59 23:59 Intake Total 1251 / 1351 1175.58 / 1175.58 991.42 / 991.42 Output Total 675 / 875 3475 / 3575 365 / 365 Balance 576 / 476 -2299.42 / -2399.42 626.42 / 626.42 Lab / Micro Data Result Diagrams: 05/23/22 04:58 05/23/22 04:58 Labs: Laboratory Results - last 24 hr 05/23/22 04:58: WBC 7.9, RBC 2.81 L, Hgb 8.6 L, Hct 28.6 L, MCV 101.8 H, MCH 30.6, MCHC 30.1 L, RDW Std Deviation 60.5 H, RDW Coeff of Petty 17.2 H, Plt Count 139 L, MPV 11.0, Immature Gran % (Auto) 2.300 H, Neut % (Auto) 60.5, Lymph % (Auto) 18.1 L, [place] % (Auto) 12.1 H, Eos % (Auto) 6.2 H, Baso % (Auto) 0.8, Absolute Neuts (auto) 4.8, Absolute Lymphs (auto) 1.42, Nucleated RBC % 0.3 05/23/22 04:58: Sodium 135 L, Potassium 3.5, Chloride 100, Carbon Dioxide 26.0, Anion Gap 9, BUN 27 H, Creatinine 3.00 H, Estim Creat Clear Calc 18.97, Est GFR (MDRD) Af Amer 26 L, Est GFR (MDRD) Non-Af 22 L, BUN/Creatinine Ratio 9.0 L, Glucose 259 H, Calcium 7.7 L 05/23/22 06:42: POC Glucose 264 H 05/23/22 07:00: APTT 31.0 05/23/22 07:00: Hemoglobin A1c 5.9 H 05/23/22 10:01: POC Glucose 267 H 05/23/22 12:55: POC Glucose 254 H 05/23/22 15:28: POC Glucose 263 H Radiography Diagnostic Testing: Radiology Impression Chest X-Ray 05/23/22 11:38 IMPRESSION: The tip of the right dialysis catheter is in the midportion of the superior vena cava. Stable appearance of the left central catheter. CHF with bibasilar atelectasis and/or infiltrates more prominent on the left base. Blunting of both costophrenic angles worse on the left side. Electronically Signed: Evan Kirkland MD at 12:35 EDT , Rhythm Strip Rhythm Strip: A-fib Rate: 104 Physical Exam Const alert, oriented x3 and no apparent distress Constitutional Narrative: Patient is morbidly obese General Appearance: cooperative, well kempt and well developed Orientation / Consciousness: awake, oriented to person, oriented to place and oriented to time HEENT normocephalic, head/scalp atraumatic and moist oral mucous membranes Eyes PERRL, EOMs intact bilaterally and conjunctivae normal Eyes Narrative: No icterus Neck nuchal rigidity, supple, no JVD, thyroid normal and no carotid bruits General: trachea midline Resp normal respiratory effort, no retractions, no use of accessory muscles and clear to auscultation bilaterally Auscultation: Negative for rales, rhonchi or wheezes Cardio regular rate, regular rhythm, S1 normal heart sound, S2 normal heart sound, no murmurs, no rub and no gallops GI normal to inspection, nondistended, normoactive bowel sounds, soft to palpation, non-tender and non-distended GI Narrative: Distended but soft and nontender. Feng hematochezia in a.m. commode. Extremity Extremity Narrative: Generalized lower extremity edema is noted bilaterally Skin no rashes or lesions noted Skin Narrative: Does have some varying aged ecchymotic lesions on upper extremities General Skin Exam: no breakdown Neuro oriented x3, CN's II-XII intact bilaterally, no focal motor deficits and no sensory deficits noted Sensorium / Orientation: awake and alert Speech: speech normal Psych affect normal Assessment & Plan Assessment/Plan (1) Acute kidney injury superimposed on CKD: PLAN: Plan 1. Upper GI bleed secondary to gastric ulcers with blood loss anemia requiring blood transfusions-patient's hemoglobin today was 8.6 which appears stable, CBC will be monitored. Patient is on a PPI. #2 shock secondary to acute blood loss anemia-corrected at this time #3 acute kidney injury superimposed on chronic kidney disease stage IIIb/IV- patient is now undergoing dialysis, patient had his tunneled dialysis catheter placed today, he will undergo dialysis tomorrow #4 hyperkalemia-resolved at this time #5 chronic diastolic heart failure-continue present medications #6 type 2 diabetes-continue to monitor blood sugars and give sliding scale insulin #7 morbid obesity-complicates recovery, care, and prognosis. #9 chronic atrial fibrillation-patient cannot be anticoagulated at this this time due to his recent GI bleed, continue with rate control medication. I do not feel comfortable placing the patient back on anticoagulation-he received a total of 8 units of blood transfused during this admission for GI bleed. Consideration for resumption of anticoagulation will need to be considered in the next 2 to 3 weeks in my opinion. Charges/Coding Visit Charges Inpatient E&M: 65349 Subs Hosp L2
--- NOTE | 2022-05-23 19:17 | CASEMGMT ---
Social Work Note SW placed a call to Becca at [facility]. Becca confirms she has PCU direct number and will call PCU if pre-cert is obtained. Nita Page [employer] MACHINE OPERATOR, CAPACITY ANALYST
[2022-05-23] MEDS: Pantoprazole Sodium 40 MG Tablet PO (22:09)
[2022-05-23 22:21] LABS: Bedside Glucose 313 mg/dL (74-106)
[2022-05-24] VITALS (16 sets, daily range): BP systolic 104–174; BP diastolic 45–76; PULSE 53–69; RESP 16–18; TEMP 36.4–36.8; O2SAT 77–100
[2022-05-24] MEDS: Acetaminophen 325 MG Tablet 650 MG PO ×2 (05:20→15:33)
[2022-05-24] MEDS: Nystatin Powder 15gm Bottle 1 APPLIC TOPICAL ×3 (05:21→21:05)
[2022-05-24] MEDS: Menthol/Lanolin/Calamine/Znox 113 GM Tube 1 APPLIC TOPICAL ×3 (05:21→21:04)
[2022-05-24] MEDS: Morphine 2 MG/ML Syringe IV ×2 (05:28→21:03)
[2022-05-24] MEDS: 0.9% Saline Lock 10 ML Syringe IV ×2 (05:30→18:13)
[2022-05-24] MEDS: Insulin Lispro 100 UNIT/ML INSULN.PEN SC ×4 (06:38→21:07)
[2022-05-24 06:46] LABS: Bedside Glucose 253 mg/dL (74-106)
--- NOTE | 2022-05-24 09:11 | CASEMGMT ---
Addendum entered by Nita Victoria 05/24/22 11:15: Per Carlos Eduardo, PCU charge, and Jessica BISHOP, they have not heard that precert has been obtained at this time. Pt will have to stay until precert obtained. Plan will be to d/c to [facility] once precert obtained with HD set up at [facility] with chair time listed in same note. Snow HOLT CM Original Note: This RN BAILEE received message from Jose at [facility] stating the [facility] is declining pt at this time but they can try another facility in [place]. Call from Moshe at [facility] stating that Dr. Natarajan received denial from [facility] and called [facility]. Moshe states he was able to work it out for a 0900 MWF chair time, 0840 arrival and he already spoke with Becca at [facility] regarding same. Call to [facility] to notify to cancel referral and message left regarding same at this time. Snow HOLT CM
--- NOTE | 2022-05-24 10:46 | NURSING ---
Pt's 1000 medications not given on time due to hemodialysis. This RN will given medications when dialysis is complete.
--- NOTE | 2022-05-24 11:35 | PCM.PN.BLA ---
Progress Note S/p placement of dialysis catheter site is clean and dry patient undergoing hemodialysis at present and it is functioning well Will sign off case
--- NOTE | 2022-05-24 11:59 | CASEMGMT ---
Social Work Note DARIO placed a call to Becca at [facility], she has not heard back regarding pt's pre-cert. SW informed Becca to update PCU when she does. Becca states understanding. Plan: [facility] pending pre-cert Nita Page [employer] MANUFACTURING SUPERVISOR, [place]
--- NOTE | 2022-05-24 12:28 | DIALYSIS ---
hemodialysis completed x 3.5 hrs. Access via right chest tunneled Hd cath. Net UF 4000ml. Pt cruz well. See HD flowsheet on chart.
--- NOTE | 2022-05-24 12:46 | PCM.PN.REN ---
Subjective Subjective Following for SAQIB on CKD. The patient is seen during hemodialysis. He denies chest pain, shortness of breath, nausea or vomiting. The patient reports being tired after dialysis. Objective Data Objective Data Vital Signs: Vital Signs Temp Pulse Resp BP Pulse Ox O2 Del Method O2 Flow Rate 97.6 F L 61 16 174/72 H 95 Nasal Cannula 1 05/24/22 12:26 05/24/22 12:26 05/24/22 12:26 05/24/22 12:05/24/22 09:34 05/24/22 12:05/24/22 09:34 Oxygen Flow Rate (L/min) 1 Oxygen Delivery Method Nasal Cannula Weight: 159.7 kg Body Mass Index (BMI) 54.5 Intake & Output: Intake and Output for Last 24 Hours 05/22/22 05/23/22 05/24/22 23:59 23:59 23:59 Intake Total 1175.58 / 1175.58 1182.01 / 1182.01 Output Total 3475 / 3575 565 / 565 4100 / 4100 Balance -2299.42 / -2399.42 617.01 / 617.01 -4100 / -4100 Lab / Micro Data Result Diagrams: 05/23/22 04:58 05/23/22 04:58 Labs: Laboratory Results - last 24 hr 05/23/22 12:55: POC Glucose 254 H 05/23/22 15:28: POC Glucose 263 H 05/23/22 21:58: POC Glucose 313 H 05/24/22 06:37: POC Glucose 253 H Rhythm Strip Rhythm Strip: A-fib Rate: 104 Physical Exam Narrative General: Alert and oriented x3, NAD. HEENT: No cephalic, atraumatic, mucous membrane moist, PERRLA. Neck: Supple, no visible JVD. Heart: Normal S1, S2 no rubs or murmurs. Lungs: Decreased breath sound at bases bilaterally. Abdomen: Normal bowel sound, obese, soft, nontender, no guarding or rebound. Extremities: 2+ edema bilaterally of the lower extremities. Assessment & Plan Assessment/Plan (1) SAQIB (acute kidney injury): PLAN: SAQIB is likely due to ATN from hemorrhagic shock. The patient was started on dialysis on 05/17/2022 because of hyperkalemia. He was dialyzed again on 05/18/2022. The patient was monitored off of dialysis between 05/19/2022 until 05/22/2022. Although there was no recurrence of hyperkalemia, the patient still has significant SAQIB without improvement in renal function. His serum creatinine increased to 3.20 mg/dL on 05/22/2022. Therefore, dialysis was restarted on 05/22/2022. Tunneled dialysis catheter has been placed for anticipated long-term dialysis. The patient already has significant underlying CKD. I supervised the dialysis procedure today. He was dialyzed for 4 hours on F160 dialyzer with blood flow of 400 mL/min and dialysate flow 800 mL/min. Will need to begin the process of looking for outpatient dialysis for the patient. (2) Chronic kidney disease, stage IV (severe): PLAN: The patient has underlying chronic kidney disease stage IV with baseline serum creatinine of around 2.30 mg/dL. 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 Will continue to monitor for renal recovery, but this may take a while. As mentioned above, we are looking for outpatient dialysis unit placement since we suspect that he will need dialysis for a while yet. (3) Hyperkalemia: PLAN: Hyperkalemia was secondary to SAQIB and reabsorption of blood from upper GI bleed. Hyperkalemia has resolved with dialysis. We will continue to monitor potassium level. (4) Gastrointestinal bleeding: QUALIFIERS: GI bleed type/associated pathology: unspecified gastrointestinal hemorrhage type Qualified Code(s): K92.2 - Gastrointestinal hemorrhage, unspecified PLAN: Management as per primary services.
[2022-05-24] MEDS: Fluticasone 0.05% 1 SPRAY NASAL.SRY NASAL ×2 (13:17→21:05)
[2022-05-24] MEDS: Azelastine HCl NASAL.SRY 1 SPRAY NASAL ×2 (13:17→21:04)
[2022-05-24] MEDS: Heparin 10,000 UNITS/10 ML Vial IV (13:18)
[2022-05-24 13:21] LABS: Bedside Glucose 222 mg/dL (74-106)
[2022-05-24] MEDS: Metoprolol Tartrate 50 MG Tablet PO ×2 (13:25→21:05)
[2022-05-24] MEDS: Sucralfate 1 GM Tablet PO ×2 (13:25→21:04)
[2022-05-24] MEDS: Insulin Glargine-YFGN 100 UNIT/ML Pen 10 UNIT SC (13:26)
[2022-05-24] MEDS: Pantoprazole Sodium 40 MG Tablet PO ×2 (13:26→21:17)
--- NOTE | 2022-05-24 13:30 | NURSING ---
Addendum entered by Tiffany Fowler RN 05/25/22 12:58: This RN talked to immigration case worker for PCU who stated that the chair time is 0900 since [facility] can not transport patient there for the 0700 chair time. Case management is aware of this. Original Note: Dialysis center called and stated that patient's chair time is 0700 M, W, F.
[2022-05-24 14:22] LABS: Hepatitis B Core Ab Total Negative (Negative)
--- NOTE | 2022-05-24 15:02 | PN.HOSP_ITS ---
Subjective Subjective Patient was seen and examined today, he is undergoing dialysis at this time, he has no complaints to this examiner. Objective Data Objective Data Vital Signs: Vital Signs Temp Pulse Resp BP Pulse Ox O2 Del Method O2 Flow Rate 97.8 F 61 18 136/71 H 100 Nasal Cannula 1 05/24/22 13:12 05/24/22 13:25 05/24/22 13:12 05/24/22 13:12 05/24/22 13:12 05/24/22 13:12 05/24/22 13:12 Oxygen Flow Rate (L/min) 1 Oxygen Delivery Method Nasal Cannula Weight: 159.7 kg Body Mass Index (BMI) 54.5 Intake & Output: Intake and Output for Last 24 Hours 05/22/22 05/23/22 05/24/22 23:59 23:59 23:59 Intake Total 1175.58 / 1175.58 1182.01 / 1182.01 250 / 250 Output Total 3475 / 3575 565 / 565 4200 / 4200 Balance -2299.42 / -2399.42 617.01 / 617.01 -3950 / -3950 Lab / Micro Data Result Diagrams: 05/23/22 04:58 05/23/22 04:58 Labs: Laboratory Results - last 24 hr 05/23/22 07:00: Hep B Core Total Ab Negative 05/23/22 15:28: POC Glucose 263 H 05/23/22 21:58: POC Glucose 313 H 05/24/22 06:37: POC Glucose 253 H 05/24/22 13:14: POC Glucose 222 H Rhythm Strip Rhythm Strip: A-fib Rate: 104 Physical Exam Const alert, oriented x3 and no apparent distress Constitutional Narrative: Patient is morbidly obese General Appearance: cooperative, well kempt and well developed Orientation / Consciousness: awake, oriented to person, oriented to place and oriented to time HEENT normocephalic, head/scalp atraumatic and moist oral mucous membranes Eyes PERRL, EOMs intact bilaterally and conjunctivae normal Eyes Narrative: No icterus Neck nuchal rigidity, supple, no JVD, thyroid normal and no carotid bruits General: trachea midline Resp normal respiratory effort, no retractions, no use of accessory muscles and clear to auscultation bilaterally Auscultation: Negative for rales, rhonchi or wheezes Cardio S1 normal heart sound, S2 normal heart sound, no murmurs, no rub and no gallops Cardio Narrative: Heart rate and rhythm is irregular GI normal to inspection, nondistended, normoactive bowel sounds, soft to palpation, non-tender and non-distended GI Narrative: Patient is morbidly obese Extremity Extremity Narrative: Generalized lower extremity edema is noted bilaterally Skin no rashes or lesions noted Skin Narrative: Does have some varying aged ecchymotic lesions on upper extremities General Skin Exam: no breakdown Neuro oriented x3, CN's II-XII intact bilaterally, no focal motor deficits and no sensory deficits noted Sensorium / Orientation: awake and alert Speech: speech normal Psych affect normal Assessment & Plan Assessment/Plan (1) Acute kidney injury superimposed on CKD: PLAN: Plan 1. Upper GI bleed secondary to gastric ulcers with blood loss anemia requiring blood transfusions-patient remains on PPI and Carafate #2 shock secondary to acute blood loss anemia-corrected at this time #3 acute kidney injury superimposed on chronic kidney disease stage IIIb/IV-p atient is now undergoing dialysis today #4 hyperkalemia-resolved at this time #5 chronic diastolic heart failure-continue present medications #6 type 2 diabetes-continue to monitor blood sugars and give sliding scale insulin #7 morbid obesity-complicates recovery, care, and prognosis. #8 chronic atrial fibrillation-patient cannot be anticoagulated at this this time due to his recent GI bleed, continue with rate control medication. I do not feel comfortable placing the patient back on anticoagulation-he received a total of 8 units of blood transfused during this admission for GI bleed. R esumption of anticoagulation will need to be considered in the next 2 to 3 weeks in my opinion. I feel it is too risky to anticoagulate the patient at this time. #9 generalized debility-PT and OT are working with patient, he will need short- term placement in a [place] [facility] facility Charges/Coding Visit Charges Inpatient E&M: 28633 Subs Hosp L2
[2022-05-24 16:45] LABS: Bedside Glucose 342 mg/dL (74-106)
[2022-05-24 21:26] LABS: Bedside Glucose 312 mg/dL (74-106)
[2022-05-25] VITALS (12 sets, daily range): BP systolic 123–142; BP diastolic 44–67; PULSE 53–69; RESP 13–17; TEMP 36.5–36.8; O2SAT 84–100
[2022-05-25] MEDS: Acetaminophen 325 MG Tablet 650 MG PO ×3 (01:36→20:43)
[2022-05-25 04:55] LABS: Absolute Lymphocyte Count 1.14 X10^3/uL (0.83-4.51); Absolute Neutrophil Count 4.1 X10^3/uL (2.0-7.7); Basophil# 0.07 X10^3/uL; Hematocrit 29.3 % (40-54); Lymphocyte # 1.14 X10^3/ul (0.83-4.51); Lymphocyte % 17.1 % (19-41); Mean Corp Hgb Conc 30.7 g/dL (32-36); Mean Platelet Vol. 10.6 fl (6.2-12.0); Monocyte# 0.87 X10^3/uL; NRBC Flagged by Analyzer 0.3 % (0-5); Neutrophil # 4.13 X10^3/uL (2.7-7.7); Neutrophil % 61.9 % (47-70); Platelet Count 148 K/mm3 (150-450); RBC Distribution Width CV 17.5 % (11.6-14.6); RBC Distribution Width SD 63.1 fl (35.1-43.9); White Blood Count 6.7 K/mm3 (4.4-11.0)
[2022-05-25 05:23] LABS: Albumin, Serum 2.7 g/dL (3.2-5.0); BUN 23 mg/dL (7-18); BUN/Creat Ratio 6.3 RATIO (10-20); Chloride 99 mmol/L (98-107); Creatinine, Serum 3.67 mg/dL (0.70-1.30); EST Glomerular Filtration Rate 17 mL/min (>60); Est Glom Filt Rate - Afr Amer 21 mL/min (>60); Estimated Creatinine Clearance 15.51 ml/min; Glucose 255 mg/dL (74-106); Phosphorus 5.1 mg/dL (2.5-4.9); Potassium 4.1 mmol/L (3.5-5.1); Sodium Level 136 mmol/L (136-145)
[2022-05-25] MEDS: Nystatin Powder 15gm Bottle 1 APPLIC TOPICAL (06:33)
[2022-05-25] MEDS: Insulin Lispro 100 UNIT/ML INSULN.PEN SC ×4 (06:33→20:37)
[2022-05-25] MEDS: Menthol/Lanolin/Calamine/Znox 113 GM Tube 1 APPLIC TOPICAL (06:34)
[2022-05-25 06:41] LABS: Bedside Glucose 231 mg/dL (74-106)
[2022-05-25] MEDS: Azelastine HCl NASAL.SRY 1 SPRAY NASAL ×2 (09:53→20:37)
[2022-05-25] MEDS: Insulin Glargine-YFGN 100 UNIT/ML Pen 10 UNIT SC (09:54)
[2022-05-25] MEDS: Fluticasone 0.05% 1 SPRAY NASAL.SRY NASAL ×2 (09:54→20:37)
[2022-05-25] MEDS: Sucralfate 1 GM Tablet PO ×2 (09:55→20:38)
[2022-05-25] MEDS: Metoprolol Tartrate 50 MG Tablet PO ×2 (09:56→20:38)
[2022-05-25] MEDS: Pantoprazole Sodium 40 MG Tablet PO ×2 (09:58→20:38)
--- NOTE | 2022-05-25 10:24 | PN.HOSP_ITS ---
Subjective Subjective Patient was seen and examined today, he is sitting up in a chair and states he feels better today. Patient's creatinine today was 3.67, BUN was 23. Objective Data Objective Data Vital Signs: Vital Signs Temp Pulse Resp BP Pulse Ox O2 Del Method O2 Flow Rate 97.7 F L 67 17 123/61 H 93 Room Air 1 05/25/22 09:45 05/25/22 09:56 05/25/22 09:45 05/25/22 09:45 05/25/22 09:57 05/25/22 09:57 05/25/22 07:45 Oxygen Flow Rate (L/min) 1 Oxygen Delivery Method Room Air Weight: 159.9 kg Body Mass Index (BMI) 54.5 Intake & Output: Intake and Output for Last 24 Hours 05/23/22 05/24/22 05/25/22 23:59 23:59 23:59 Intake Total 1182.01 / 1182.01 650 / 650 300 / 300 Output Total 565 / 565 4200 / 4200 Balance 617.01 / 617.01 -3550 / -3550 300 / 300 Lab / Micro Data Result Diagrams: 05/25/22 04:22 05/25/22 04:22 Labs: Laboratory Results - last 24 hr 05/23/22 07:00: Hep B Core Total Ab Negative 05/24/22 13:14: POC Glucose 222 H 05/24/22 16:36: POC Glucose 342 H 05/24/22 21:07: POC Glucose 312 H 05/25/22 04:22: WBC 6.7, RBC 2.90 L, Hgb 9.0 L, Hct 29.3 L, MCV 101.0 H, MCH 31.0, MCHC 30.7 L, RDW Std Deviation 63.1 H, RDW Coeff of Petty 17.5 H, Plt Count 148 L, MPV 10.6, Immature Gran % (Auto) 1.000 H, Neut % (Auto) 61.9, Lymph % (Auto) 17.1 L, [place] % (Auto) 13.0 H, Eos % (Auto) 6.0 H, Baso % (Auto) 1.0, Absolute Neuts (auto) 4.1, Absolute Lymphs (auto) 1.14, Nucleated RBC % 0.3 05/25/22 04:22: Sodium 136, Potassium 4.1, Chloride 99, Carbon Dioxide 28.0, BUN 23 H, Creatinine 3.67 H, Estim Creat Clear Calc 15.51, Est GFR (MDRD) Af Amer 21 L, Est GFR (MDRD) Non-Af 17 L, BUN/Creatinine Ratio 6.3 L, Glucose 255 H, Calcium 8.0 L, Phosphorus 5.1 H, Albumin 2.7 L 05/25/22 06:26: POC Glucose 231 H Rhythm Strip Rhythm Strip: A-fib Rate: 104 Physical Exam Const alert, oriented x3 and no apparent distress Constitutional Narrative: Patient is morbidly obese General Appearance: cooperative, well kempt and well developed Orientation / Consciousness: awake, oriented to person, oriented to place and oriented to time HEENT normocephalic, head/scalp atraumatic and moist oral mucous membranes Eyes PERRL, EOMs intact bilaterally and conjunctivae normal Eyes Narrative: No icterus Neck supple, no JVD, thyroid normal and no carotid bruits General: trachea midline Resp normal respiratory effort, no retractions, no use of accessory muscles and clear to auscultation bilaterally Auscultation: Negative for rales, rhonchi or wheezes Cardio regular rate, regular rhythm, S1 normal heart sound, S2 normal heart sound, no murmurs, no rub and no gallops Cardio Narrative: Heart rate and rhythm is irregular GI normal to inspection, nondistended, normoactive bowel sounds, soft to palpation, non-tender and non-distended GI Narrative: Patient is morbidly obese Extremity Extremity Narrative: Generalized lower extremity edema is noted bilaterally Skin no rashes or lesions noted Skin Narrative: Does have some varying aged ecchymotic lesions on upper extremities General Skin Exam: no breakdown Neuro oriented x3, CN's II-XII intact bilaterally, no focal motor deficits and no sensory deficits noted Sensorium / Orientation: awake and alert Speech: speech normal Psych affect normal Assessment & Plan Assessment/Plan (1) Acute kidney injury superimposed on CKD: PLAN: Plan 1. Upper GI bleed secondary to gastric ulcers with blood loss anemia requiring blood transfusions-patient remains on PPI and Carafate. Patient's hemoglobin has remained stable. #2 shock secondary to acute blood loss anemia-corrected at this time #3 acute kidney injury superimposed on chronic kidney disease stage IIIb/IV- patient is now undergoing dialysis on a chronic basis for now #4 hyperkalemia-resolved at this time #5 chronic diastolic heart failure-continue present medications #6 type 2 diabetes-continue to monitor blood sugars and give sliding scale insul in #7 morbid obesity-complicates recovery, care, and prognosis. #8 chronic atrial fibrillation-patient cannot be anticoagulated at this this time due to his recent GI bleed, continue with rate control medication. I do not feel comfortable placing the patient back on anticoagulation-he received a total of 8 units of blood transfused during this admission for GI bleed. Resumption of anticoagulation will need to be considered in the next 2 to 3 weeks in my opinion. I feel it is too risky to anticoagulate the patient at this time. #9 generalized debility-PT and OT are working with patient, [facility] will [facility] Charges/Coding Visit Charges Inpatient E&M: 19633 Subs Hosp L2
[2022-05-25 12:00] LABS: Bedside Glucose 254 mg/dL (74-106)
--- NOTE | 2022-05-25 12:25 | PN.RENAL_ITS ---
Subjective Subjective Following for SAQIB on CKD. The patient tolerated dialysis well yesterday. He denies chest pain, shortness of breath at rest, or nausea today. Objective Data Objective Data Vital Signs: Vital Signs Temp Pulse Resp BP Pulse Ox O2 Del Method O2 Flow Rate 97.7 F L 67 17 123/61 H 97 Nasal Cannula 1 05/25/22 09:45 05/25/22 09:56 05/25/22 09:45 05/25/22 09:45 05/25/22 11:51 05/25/22 11:51 05/25/22 11:51 Oxygen Flow Rate (L/min) 1 Oxygen Delivery Method Nasal Cannula Weight: 159.9 kg Body Mass Index (BMI) 54.5 Intake & Output: Intake and Output for Last 24 Hours 05/23/22 05/24/22 05/25/22 23:59 23:59 23:59 Intake Total 1182.01 / 1182.01 650 / 650 300 / 300 Output Total 565 / 565 4200 / 4200 Balance 617.01 / 617.01 -3550 / -3550 300 / 300 Lab / Micro Data Result Diagrams: 05/25/22 04:22 05/25/22 04:22 Labs: Laboratory Results - last 24 hr 05/23/22 07:00: Hep B Core Total Ab Negative 05/24/22 13:14: POC Glucose 222 H 05/24/22 16:36: POC Glucose 342 H 05/24/22 21:07: POC Glucose 312 H 05/25/22 04:22: WBC 6.7, RBC 2.90 L, Hgb 9.0 L, Hct 29.3 L, MCV 101.0 H, MCH 31.0, MCHC 30.7 L, RDW Std Deviation 63.1 H, RDW Coeff of Petty 17.5 H, Plt Count 148 L, MPV 10.6, Immature Gran % (Auto) 1.000 H, Neut % (Auto) 61.9, Lymph % (Auto) 17.1 L, [place] % (Auto) 13.0 H, Eos % (Auto) 6.0 H, Baso % (Auto) 1.0, Absolute Neuts (auto) 4.1, Absolute Lymphs (auto) 1.14, Nucleated RBC % 0.3 05/25/22 04:22: Sodium 136, Potassium 4.1, Chloride 99, Carbon Dioxide 28.0, BUN 23 H, Creatinine 3.67 H, Estim Creat Clear Calc 15.51, Est GFR (MDRD) Af Amer 21 L, Est GFR (MDRD) Non-Af 17 L, BUN/Creatinine Ratio 6.3 L, Glucose 255 H, Calcium 8.0 L, Phosphorus 5.1 H, Albumin 2.7 L 05/25/22 06:26: POC Glucose 231 H 05/25/22 11:53: POC Glucose 254 H Rhythm Strip Rhythm Strip: A-fib Rate: 104 Physical Exam Narrative General: Alert and oriented x3, NAD. HEENT: Normocephalic, atraumatic, mucous membrane moist, PERRLA. Neck: Supple, no visible JVD. Heart: Normal S1, S2 no rubs or murmurs. Lungs: Decreased breath sound at bases bilaterally. Abdomen: Normal bowel sound, obese, soft, nontender, no guarding or rebound. Extremities: 2+ edema bilaterally of the lower extremities. Const alert and oriented x3 General Appearance: cooperative Orientation / Consciousness: awake HEENT normocephalic Eyes General Eye: normal appearance of both eyes Assessment & Plan Assessment/Plan (1) SAQIB (acute kidney injury): PLAN: SAQIB is likely due to ATN from hemorrhagic shock. The patient was started on dialysis on 05/17/2022 because of hyperkalemia. He was dialyzed again on 05/18/2022. The patient was monitored off of dialysis between 05/19/2022 until 05/22/2022. Although there was no recurrence of hyperkalemia, the patient still has significant SAQIB without improvement in renal function. His serum creatinine increased to 3.20 mg/dL on 05/22/2022. Therefore, dialysis was restarted on 05/22/2022. Tunneled dialysis catheter has been placed for anticipated long-term dialysis. The patient already has significant underlying CKD. The patient tolerated dialysis well on 05/24/2022. No need for dialysis today. I do not anticipate having to dialyze the patient until 05/27/2022. We will recheck renal function again tomorrow to see if there is any recovery of renal function off of dialysis. (2) Chronic kidney disease, stage IV (severe): PLAN: The patient has underlying chronic kidney disease stage IV with baseline serum creatinine of around 2.30 mg/dL. 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 Will continue to monitor for renal recovery, but this may take a while. As mentioned above, we are looking for outpatient dialysis unit placement since we suspect that he will need dialysis for a while yet. (3) Hyperkalemia: PLAN: Hyperkalemia was secondary to SAQIB and reabsorption of blood from upper GI bleed. Hyperkalemia has resolved with dialysis. We will continue to monitor potassium level. (4) Gastrointestinal bleeding: QUALIFIERS: GI bleed type/associated pathology: unspecified gastrointestinal hemorrhage type Qualified Code(s): K92.2 - Gastrointestinal hemorrhage, unspecified PLAN: Management as per primary services.
[2022-05-25] MEDS: Morphine 2 MG/ML Syringe IV (13:39)
[2022-05-25] MEDS: 0.9% Saline Lock 10 ML Syringe IV (13:40)
[2022-05-25 16:35] LABS: Bedside Glucose 272 mg/dL (74-106)
[2022-05-25 20:45] LABS: Bedside Glucose 314 mg/dL (74-106)
[2022-05-26] VITALS (11 sets, daily range): BP systolic 109–147; BP diastolic 53–86; PULSE 56–82; RESP 16–18; TEMP 36.5–36.8; O2SAT 96–100
[2022-05-26 06:10] LABS: Albumin, Serum 2.7 g/dL (3.2-5.0); BUN 32 mg/dL (7-18); BUN/Creat Ratio 7.6 RATIO (10-20); Calcium,Total 8.4 mg/dL (8.5-10.1); Chloride 99 mmol/L (98-107); EST Glomerular Filtration Rate 15 mL/min (>60); Est Glom Filt Rate - Afr Amer 18 mL/min (>60); Estimated Creatinine Clearance 13.55 ml/min; Glucose 235 mg/dL (74-106); Phosphorus 5.2 mg/dL (2.5-4.9); Potassium 3.8 mmol/L (3.5-5.1); Sodium Level 134 mmol/L (136-145)
[2022-05-26] MEDS: Insulin Lispro 100 UNIT/ML INSULN.PEN SC ×4 (06:25→21:19)
[2022-05-26] MEDS: Nystatin Powder 15gm Bottle 1 APPLIC TOPICAL ×3 (06:25→21:20)
[2022-05-26] MEDS: Menthol/Lanolin/Calamine/Znox 113 GM Tube 1 APPLIC TOPICAL ×3 (06:25→21:20)
[2022-05-26 06:31] LABS: Bedside Glucose 224 mg/dL (74-106)
[2022-05-26] MEDS: Acetaminophen 325 MG Tablet 650 MG PO ×2 (07:58→14:23)
[2022-05-26] MEDS: Pantoprazole Sodium 40 MG Tablet PO ×2 (09:53→21:23)
[2022-05-26] MEDS: Sucralfate 1 GM Tablet PO ×2 (09:53→21:19)
[2022-05-26] MEDS: Metoprolol Tartrate 50 MG Tablet PO ×2 (09:53→21:19)
[2022-05-26] MEDS: Azelastine HCl NASAL.SRY 1 SPRAY NASAL ×2 (09:53→21:20)
[2022-05-26] MEDS: Fluticasone 0.05% 1 SPRAY NASAL.SRY NASAL ×2 (09:53→21:20)
[2022-05-26] MEDS: Insulin Glargine-YFGN 100 UNIT/ML Pen 10 UNIT SC (09:53)
--- NOTE | 2022-05-26 10:10 | PN.HOSP_ITS ---
Subjective Subjective Follow-up on SAQIB on CKD/upper GI/gastric ulcers: Patient was seen and examined. Denied any new complaint. No acute events overnight. Awaiting discharge to custodial facility Objective Data Objective Data Vital Signs: Vital Signs Temp Pulse Resp BP Pulse Ox O2 Del Method O2 Flow Rate 97.7 F L 63 18 120/56 L 100 Nasal Cannula 1 05/26/22 09:46 05/26/22 09:53 05/26/22 09:46 05/26/22 09:46 05/26/22 09:46 05/26/22 09:46 05/26/22 09:46 Oxygen Flow Rate (L/min) 1 Oxygen Delivery Method Nasal Cannula Weight: 159.9 kg Body Mass Index (BMI) 54.5 Intake & Output: Intake and Output for Last 24 Hours 05/24/22 05/25/22 05/26/22 23:59 23:59 23:59 Intake Total 650 / 650 550 / 550 700 / 700 Output Total 4200 / 4200 Balance -3550 / -3550 550 / 550 700 / 700 Lab / Micro Data Result Diagrams: 05/25/22 04:22 05/26/22 04:48 Labs: Laboratory Results - last 24 hr 05/25/22 11:53: POC Glucose 254 H 05/25/22 16:27: POC Glucose 272 H 05/25/22 20:36: POC Glucose 314 H 05/26/22 04:48: Sodium 134 L, Potassium 3.8, Chloride 99, Carbon Dioxide 26.0, BUN 32 H, Creatinine 4.20 H, Estim Creat Clear Calc 13.55, Est GFR (MDRD) Af Amer 18 L, Est GFR (MDRD) Non-Af 15 L, BUN/Creatinine Ratio 7.6 L, Glucose 235 H , Calcium 8.4 L, Phosphorus 5.2 H, Albumin 2.7 L 05/26/22 06:24: POC Glucose 224 H Rhythm Strip Rhythm Strip: A-fib Rate: 104 Physical Exam Narrative Physical exam: General: Alert, Oriented x3, Cooperative, obese, anasarca HEENT: Atraumatic Oral: Moist Mucosa Neck: Supple Lungs: Diminished to auscultation Cardiovascular: HS I+II, regular, no murmurs Abdomen: Bowel Sounds Present, Soft, Non Tender Extremities: No edema Skin: No rashes, No breakdown Neurological: Grossly intact Psych/Mental Status: Appropriate Assessment & Plan Assessment/Plan (1) Acute kidney injury superimposed on CKD: PLAN: Plan 1. Acute GI bleed secondary to gastric ulcers, status post EGD on 05/16/22 Continue with sacral fate for 12 weeks, continue PPI. GI consulted 2. Acute blood loss anemia requiring blood transfusions, status post 8 units packed RBCs Hemoglobin is 9.0, continue to monitor 3. Acute kidney injury superimposed on chronic kidney disease stage IIIb/IV Started on dialysis, nephrology following Repeat blood work in a.m. 4. Hyperkalemia, resolved at this time 5. Type 2 DM, blood sugars are uncontrolled, Continue Lantus 20 units a day with insulin sliding scale 6. Morbid obesity-complicates recovery, care, and prognosis. 7. Chronic heart failure with preserved EF/chronic atrial fibrillation 8. Debility, awaiting discharge to custodial facility 9. DVT PPx- SCDs Charges/Coding Visit Charges Inpatient E&M: 14197 Subs Hosp L2
[2022-05-26 11:15] LABS: Bedside Glucose 284 mg/dL (74-106)
--- NOTE | 2022-05-26 12:06 | PCM.PN.REN ---
Subjective Subjective Following for SAQIB on CKD. The patient denies chest pain, shortness of breath at rest, or nausea. He still has significant edema of the lower extremities. Objective Data Objective Data Vital Signs: Vital Signs Temp Pulse Resp BP Pulse Ox O2 Del Method O2 Flow Rate 97.7 F L 63 18 120/56 L 100 Nasal Cannula 1 05/26/22 09:46 05/26/22 09:53 05/26/22 09:46 05/26/22 09:46 05/26/22 09:46 05/26/22 09:46 05/26/22 09:46 Oxygen Flow Rate (L/min) 1 Oxygen Delivery Method Nasal Cannula Weight: 159.9 kg Body Mass Index (BMI) 54.5 Intake & Output: Intake and Output for Last 24 Hours 05/24/22 05/25/22 05/26/22 23:59 23:59 23:59 Intake Total 650 / 650 550 / 550 700 / 700 Output Total 4200 / 4200 Balance -3550 / -3550 550 / 550 700 / 700 Lab / Micro Data Result Diagrams: 05/25/22 04:22 05/26/22 04:48 Labs: Laboratory Results - last 24 hr 05/25/22 16:27: POC Glucose 272 H 05/25/22 20:36: POC Glucose 314 H 05/26/22 04:48: Sodium 134 L, Potassium 3.8, Chloride 99, Carbon Dioxide 26.0, BUN 32 H, Creatinine 4.20 H, Estim Creat Clear Calc 13.55, Est GFR (MDRD) Af Amer 18 L, Est GFR (MDRD) Non-Af 15 L, BUN/Creatinine Ratio 7.6 L, Glucose 235 H, Calcium 8.4 L, Phosphorus 5.2 H, Albumin 2.7 L 05/26/22 06:24: POC Glucose 224 H 05/26/22 11:03: POC Glucose 284 H Rhythm Strip Rhythm Strip: A-fib Rate: 104 Physical Exam Narrative General: Alert and oriented x3, NAD. HEENT: Normocephalic, atraumatic, mucous membrane moist, PERRLA. Neck: Supple, no visible JVD. Heart: Normal S1, S2 no rubs or murmurs. Lungs: Decreased breath sound at bases bilaterally. Abdomen: Normal bowel sound, obese, soft, nontender, no guarding or rebound. Extremities: 3+ edema bilaterally of the lower extremities. Const alert and oriented x3 General Appearance: cooperative Orientation / Consciousness: awake HEENT normocephalic Eyes General Eye: normal appearance of both eyes Assessment & Plan Assessment/Plan (1) SAQIB (acute kidney injury): PLAN: SAQIB is likely due to ATN from hemorrhagic shock. The patient was started on dialysis on 05/17/2022 because of hyperkalemia. He was dialyzed again on 05/18/2022. The patient was monitored off of dialysis between 05/19/2022 until 05/22/2022. Although there was no recurrence of hyperkalemia, the patient still has significant SAQIB without improvement in renal function. His serum creatinine increased to 3.20 mg/dL on 05/22/2022. Therefore, dialysis was restarted on 05/22/2022. Tunneled dialysis catheter has been placed for anticipated long-term dialysis. The patient already has significant underlying CKD. The patient tolerated dialysis well on 05/24/2022. No need for dialysis today. Serum creatinine is still rising between dialysis. Therefore, I will plan on dialyzing him again tomorrow on 05/27/2022. We will keep him on TTS schedule. He is awaiting placement at [facility]. (2) Chronic kidney disease, stage IV (severe): PLAN: The patient has underlying chronic kidney disease stage IV with baseline serum creatinine of around 2.30 mg/dL. 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 Will continue to monitor for renal recovery, but this may take a while. As mentioned above, we are looking for outpatient dialysis unit placement since we suspect that he will need dialysis for a while yet. (3) Hyperkalemia: PLAN: Hyperkalemia was secondary to SAQIB and reabsorption of blood from upper GI bleed. Hyperkalemia has resolved with dialysis. We will continue to monitor potassium level. (4) Gastrointestinal bleeding: QUALIFIERS: GI bleed type/associated pathology: unspecified gastrointestinal hemorrhage type Qualified Code(s): K92.2 - Gastrointestinal hemorrhage, unspecified PLAN: Management as per primary services.
[2022-05-26 16:56] LABS: Bedside Glucose 298 mg/dL (74-106)
[2022-05-26 21:56] LABS: Bedside Glucose 305 mg/dL (74-106)
[2022-05-27] VITALS (11 sets, daily range): BP systolic 122–156; BP diastolic 33–63; PULSE 51–71; RESP 18–20; TEMP 36.6–36.9; O2SAT 95–100
[2022-05-27] MEDS: Acetaminophen 325 MG Tablet 650 MG PO ×2 (00:13→18:42)
[2022-05-27 04:23] LABS: Absolute Lymphocyte Count 1.02 X10^3/uL (0.83-4.51); Absolute Neutrophil Count 4.2 X10^3/uL (2.0-7.7); Basophil# 0.05 X10^3/uL; Basophil% 0.8 % (0-1); Eosinophil# 0.35 X10^3/uL; Eosinophils% 5.5 % (0-5); Hematocrit 29.5 % (40-54); Hemoglobin 8.9 g/dL (13.0-16.5); Lymphocyte # 1.02 X10^3/ul (0.83-4.51); Mean Corp Hgb Conc 30.2 g/dL (32-36); Mean Corpuscular Hgb 30.2 pg (27.0-32.0); Monocyte# 0.74 X10^3/uL; Monocyte% 11.6 % (0-10); NRBC Flagged by Analyzer 0 % (0-5); Neutrophil # 4.17 X10^3/uL (2.7-7.7); Neutrophil % 65.3 % (47-70); Platelet Count 146 K/mm3 (150-450); RBC Distribution Width CV 17.8 % (11.6-14.6); RBC Distribution Width SD 63.6 fl (35.1-43.9); Red Blood Count 2.95 M/mm3 (4.6-6.2); White Blood Count 6.4 K/mm3 (4.4-11.0)
[2022-05-27 04:56] LABS: ALB/GLOB Ratio 0.8 RATIO (0.9-2.4); AST(SGOT) 14 U/L (15-37); Alanine Aminotransfer ALT/SGPT 10 U/L (16-61); Albumin, Serum 2.7 g/dL (3.2-5.0); Alkaline Phosphatase 73 U/L (45-117); Anion Gap 10 (5-15); BUN 39 mg/dL (7-18); BUN/Creat Ratio 9.6 RATIO (10-20); Calcium,Total 8.1 mg/dL (8.5-10.1); Chloride 99 mmol/L (98-107); Creatinine, Serum 4.05 mg/dL (0.70-1.30); EST Glomerular Filtration Rate 15 mL/min (>60); Est Glom Filt Rate - Afr Amer 19 mL/min (>60); Estimated Creatinine Clearance 14.05 ml/min; Globulin 3.2 g/dL (2.2-4.2); Glucose 278 mg/dL (74-106); Potassium 3.5 mmol/L (3.5-5.1); Protein, Total 5.9 g/dL (6.4-8.2); Sodium Level 135 mmol/L (136-145)
[2022-05-27] MEDS: Nystatin Powder 15gm Bottle 1 APPLIC TOPICAL ×3 (06:33→22:15)
[2022-05-27] MEDS: Menthol/Lanolin/Calamine/Znox 113 GM Tube 1 APPLIC TOPICAL ×3 (06:33→22:12)
[2022-05-27] MEDS: Insulin Lispro 100 UNIT/ML INSULN.PEN SC ×3 (06:33→22:15)
[2022-05-27 07:11] LABS: Bedside Glucose 229 mg/dL (74-106)
--- NOTE | 2022-05-27 08:25 | PN.RENAL_ITS ---
Subjective Subjective Seen and examined while on dialysis. Denies any complaints. States appetite good. Objective Data Objective Data Vital Signs: Vital Signs Temp Pulse Resp BP Pulse Ox O2 Del Method O2 Flow Rate 98.4 F 69 18 126/63 H 95 Nasal Cannula 1 05/27/22 03:30 05/27/22 07:00 05/27/22 03:30 05/27/22 03:30 05/27/22 06:40 05/27/22 06:40 05/27/22 06:40 Oxygen Flow Rate (L/min) 1 Oxygen Delivery Method Nasal Cannula Weight: 158.3 kg Body Mass Index (BMI) 54.5 Intake & Output: Intake and Output for Last 24 Hours 05/25/22 05/26/22 05/27/22 23:59 23:59 23:59 Intake Total 550 / 550 1540 / 1590 50 / 50 Output Total 400 / 400 Balance 550 / 550 1540 / 1390 -350 / -350 Lab / Micro Data Result Diagrams: 05/27/22 03:46 05/27/22 03:46 Labs: Laboratory Results - last 24 hr 05/26/22 11:03: POC Glucose 284 H 05/26/22 16:48: POC Glucose 298 H 05/26/22 21:14: POC Glucose 305 H 05/27/22 03:46: WBC 6.4, RBC 2.95 L, Hgb 8.9 L, Hct 29.5 L, MCV 100.0 H, MCH 30.2, MCHC 30.2 L, RDW Std Deviation 63.6 H, RDW Coeff of Petty 17.8 H, Plt Count 146 L, MPV 11.0, Immature Gran % (Auto) 0.800, Neut % (Auto) 65.3, Lymph % (Auto) 16.0 L, [place] % (Auto) 11.6 H, Eos % (Auto) 5.5 H, Baso % (Auto) 0.8, Absolute Neuts (auto) 4.2, Absolute Lymphs (auto) 1.02, Nucleated RBC % 0 05/27/22 03:46: Sodium 135 L, Potassium 3.5, Chloride 99, Carbon Dioxide 26.0, Anion Gap 10, BUN 39 H, Creatinine 4.05 H, Estim Creat Clear Calc 14.05, Est GFR (MDRD) Af Amer 19 L, Est GFR (MDRD) Non-Af 15 L, BUN/Creatinine Ratio 9.6 L, Glucose 278 H, Calcium 8.1 L, Total Bilirubin 0.50, AST 14 L, ALT 10 L, Alkaline Phosphatase 73, Total Protein 5.9 L, Albumin 2.7 L, Globulin 3.2, Albumin/Globulin Ratio 0.8 L 05/27/22 06:31: POC Glucose 229 H Rhythm Strip Rhythm Strip: A-fib Rate: 104 Physical Exam Narrative General: Alert and oriented x3, NAD. HEENT: Normocephalic, atraumatic, mucous membrane moist, PERRLA. Neck: Supple, no visible JVD. Heart: Normal S1, S2 no rubs or murmurs. Lungs: Decreased breath sound at bases bilaterally. Abdomen: Normal bowel sound, obese, soft, nontender, no guarding or rebound. Extremities: 3+ edema bilaterally of the lower extremities. Const alert and oriented x3 General Appearance: cooperative Orientation / Consciousness: awake HEENT normocephalic Eyes General Eye: normal appearance of both eyes Assessment & Plan Assessment/Plan (1) SAQIB (acute kidney injury): PLAN: SAQIB is likely due to ATN from hemorrhagic shock. The patient was started on dialysis on 05/17/2022 because of hyperkalemia. He was dialyzed again on 05/18/2022. The patient was monitored off of dialysis between 05/19/2022 until 05/22/2022. Although there was no recurrence of hyperkalemia, the patient still has significant SAQIB without improvement in renal function. His serum creatinine increased to 3.20 mg/dL on 05/22/2022. Therefore, dialysis was restarted on 05/22/2022. Tunneled dialysis catheter has been placed for anticipated long-term dialysis. The patient already has significant underlying CKD. Patient is nonoliguric At this time there has been no noted renal recovery, therefore we will plan for dialysis today over 3.5hr, UF 4L on 3k bath. We will keep him on TTS schedule. He is awaiting placement at [facility]. Okay for discharge per renal once outpatient dialysis is arranged and confirmed. (2) Chronic kidney disease, stage IV (severe): PLAN: The patient has underlying chronic kidney disease stage IV with baseline serum creatinine of around 2.30 mg/dL, followed by Dr. Garcia He likely has diabetic kidney disease. Will continue to monitor for renal recovery, but this may take a while. (3) Hyperkalemia: PLAN: Hyperkalemia was secondary to SAQIB and reabsorption of blood from upper GI bleed. Hyperkalemia has resolved with dialysis. We will continue to monitor potassium level. (4) Gastrointestinal bleeding: QUALIFIERS: GI bleed type/associated pathology: unspecified gastrointestinal hemorrhage type Qualified Code(s): K92.2 - Gastrointestinal hemorrhage, unspecified PLAN: Management as per primary services and GI. Acute diverticular bleed treated endoscopically, on stool softeners bid for the next 7 days, then daily, per GI no contraindication for anticoagulation at this time.
--- NOTE | 2022-05-27 10:13 | CASEMGMT ---
This JONATHON MOROCHO spoke with Moshe at [facility] and he states pt will be 0900 chair time and [facility] has transportation set up. Awaiting precert for [facility]. Pt and son, Maynor, updated on all, voice understanding. Snow HOLT CM
--- NOTE | 2022-05-27 10:36 | TREXTCAR_ITS ---
Diet Diet Order/Speech Therapy: 05/23/22 13:11 Diet: Consistent Carb - Calorie Controlled Is pt able to select menu?: Yes Diet Comments: diabetic please How many daily calories?: 2000 calorie Routine Orders/Code Status Suppository Type: Dulcolax 10mg Suppository Frequency: Daily PRN O2 Liters per Minute: 1 O2 Frequency: PRN Keep PO Greater than or Equal to (%): 94 Routine Lab Work: CBC (within 3 days) and - (renal panel within 3 days) Code Status: Full Code Wound(s) right leg: Wound Type: scattered blisters Dressing Change: Adaptic left leg: Wound Type: scattered dry blisters left knee: Wound Type: dry blister Dressing Change: Adaptic left mid watkins: Wound Type: dry blister Dressing Change: Adaptic left distal watkins: Wound Type: dry blister Dressing Change: Adaptic right watkins: Wound Type: large open blister Dressing Change: Adaptic right knee: Wound Type: open blister Dressing Change: Adaptic right lateral upper calf: Wound Type: open blister Dressing Change: Adaptic right posterolateral lower leg: Wound Type: blister Dressing Change: Adaptic right thigh: Wound Type: open blister Dressing Change: Adaptic right medial lower leg: Wound Type: open blister Dressing Change: Adaptic rt 2nd and 3rd toe: Wound Type: blister Right neck: Wound Type: Puncture Therapies Weight Bearing: Weight bearing as tolerated Extremity Affected:: Bilateral Lower Physical Therapy: Eval and Treat Occupational Therapy: Eval and Treat Problem/Diagnosis (1) SAQIB (acute kidney injury): Status: Acute Code(s): N17.9 - Acute kidney failure, unspecified (2) Chronic kidney disease, stage IV (severe): Status: Chronic Code(s): N18.4 - Chronic kidney disease, stage 4 (severe) (3) Hyperkalemia: Status: Acute Code(s): E87.5 - Hyperkalemia (4) Gastrointestinal bleeding: Status: Acute Code(s): K92.2 - Gastrointestinal hemorrhage, unspecified Allergies/Procedures Done in Hospital Allergies grass pollen Allergy (Verified 05/16/22 02:49) Hives Latex, Natural Rubber Allergy (Verified 05/16/22 02:49) Unknown Procedures: Colonoscopy and EGD Type of Care/Length of Stay Estimated LOS: Convalescent Care Less Than 30 days Type of Care Needed: Skilled Rehab Potential: Fair Prognosis: Fair Additional Orders/Day of Discharge Day of Discharge: 05/27/22 Dietary and Speech Recommendations Dietitian Recommendations/Changes: recommend 2000 calorie controlled, cardiac diet when medically indicated; will continue to monitor renal function and need for additional restrictions as diet advanced Discharge Plan Admission Admit Date/Time: 05/16/22 06:12 Primary Reason for Your Visit: SAQIB/Severe anemia/GI bleed Attending Provider: Cleo Olivas Primary Care Provider: Alvarado Sam Consulting Providers: David Barrera ; Vic Mccracken ; Martin Angel ; Lizeth Chiu NP ; Almaz Holland ; Tomas Mcbride ; Josep Severino ; Alvarado Parada Discharge Orders/Prescriptions Prescriptions: New pantoprazole 40 mg Tablet,Delayed Release (Dr/Ec) 40 mg PO BID Qty: 0 0RF metoprolol tartrate 50 mg Tablet 50 mg PO BID Qty: 0 0RF nystatin [Nyamyc] 100,000 unit/gram Powder 1 applic topical TID Qty: 0 0RF Protocol: *Topical Application Instructions APPLICATION INSTRUCTIONS: to abdominal folds and excoriated areas Deep Sea Nasal 0.65 % Aerosol,[place] 2 spray NASAL TID PRN PRN (Reason: NASAL DRYNESS) Qty: 0 0RF insulin glargine-yfgn 100 unit/mL (3 mL) Insulin Pen 20 unit subcut DAILY Qty: 0 0RF sucralfate 1 gram Tablet 1 g PO BID Qty: 0 0RF Continued allopurinol 300 MG tablet 300 mg PO DAILY vitamin B complex 1 EACH capsule 1 ea PO DAILY cyclobenzaprine 10 MG tablet 5 mg PO BID cetirizine 10 mg Tablet 10 mg PO DAILY pravastatin 40 mg Tablet 40 mg PO QHS albuterol 90 mcg/actuation Aerosol 2 mcg INHALATION Q4H PRN PRN (Reason: Shortness Of Breath Or Wheezing) Rx Instructions: 2 puffs q4hr prn multivitamin Capsule 1 cap PO DAILY ezetimibe [Zetia] 10 mg Tablet 10 mg PO DAILY gabapentin 100 mg Tablet 100 mg PO TID cholecalciferol (vitamin D3) [Vitamin D3] 50 mcg (2,000 unit) Capsule 50 mcg PO DAILY azelastine-fluticasone 137-50 mcg/spray [place],Non-Aerosol 1 spray INTRANASAL BID Rx Instructions: administer into each nostril Discontinued metoprolol tartrate 50 MG tablet 100 mg PO BID aspirin 81 MG tablet,chewable 81 mg PO DAILY@0800 oxycodone-acetaminophen 1 EACH tablet 1 - 2 tab PO Q6H PRN PRN (Reason: Pain) Label Comments: take 1 tablet by mouth twice a day if needed for pain torsemide 20 mg Tablet 30 mg PO DAILY Hold Instructions: Resume on 05/15/22. oxybutynin chloride [Ditropan XL] 10 mg Tablet Extended Release 24hr 10 mg PO DAILY spironolactone 25 mg Tablet 25 mg PO DAILY Hold Instructions: Resume on 05/15/22. nifedipine 60 mg Tablet Extended Release 24hr 60 mg PO DAILY losartan 100 mg Tablet 100 mg PO DAILY insulin aspart U-100 [Novolog Flexpen U-100 Insulin] 100 unit/mL (3 mL) Insulin Pen 10 unit SUBCUT 4X/DAY Soliqua 100/33 100 unit-33 mcg/mL Insulin Pen 55 unit SUBCUT DAILY Eliquis 5 mg tablet 5 mg PO BID Referrals / Follow Up: Alvarado Sam MD [Primary Care Provider] - In 1 Week Disposition Disposition (needs filled in before D/C Order can be placed): Detention Facility (1) Gastrointestinal bleeding Qualifiers: GI bleed type/associated pathology: unspecified gastrointestinal hemorrhage type Qualified Code(s): K92.2 - Gastrointestinal hemorrhage, unspecified
--- NOTE | 2022-05-27 10:42 | CASEMGMT ---
Addendum entered by Holley Hampton 05/27/22 10:59: Becca reached out. Insurance is requesting updated PT/OT. Discharge Projection Engineer faxed over updated pt/ot. Original Note: Discharge Projection Engineer Holley Discharge Projection Engineer reached out to Becca at [facility]. Pre-cert has not been obtained yet. Will keep following up. Holley Hampton Discharge Projection Engineer
[2022-05-27] MEDS: Fluticasone 0.05% 1 SPRAY NASAL.SRY NASAL ×2 (11:39→22:11)
[2022-05-27] MEDS: Azelastine HCl NASAL.SRY 1 SPRAY NASAL ×2 (11:39→22:10)
[2022-05-27] MEDS: Pantoprazole Sodium 40 MG Tablet PO ×2 (11:40→22:14)
[2022-05-27] MEDS: Metoprolol Tartrate 50 MG Tablet PO (11:40)
[2022-05-27] MEDS: Insulin Glargine-YFGN 100 UNIT/ML Pen 40 UNIT SC (11:41)
[2022-05-27 11:56] LABS: Bedside Glucose 147 mg/dL (74-106)
[2022-05-27] MEDS: 0.9% Saline Lock 10 ML Syringe IV (12:01)
[2022-05-27] MEDS: Morphine 2 MG/ML Syringe IV (12:01)
[2022-05-27 13:43] LABS: Magnesium 2.2 mg/dL (1.6-2.6)
--- NOTE | 2022-05-27 13:48 | NURSING ---
1330-pt had 19beat run vtach on monitor. when went to see pt pt resting in chair and just c/o feeling tired after dialysis dr. gray aware and mag level to be checked
[2022-05-27] MEDS: Sucralfate 1 GM Tablet PO ×2 (13:56→22:12)
--- NOTE | 2022-05-27 14:49 | CASEMGMT ---
Addendum entered by Nita Victoria 05/27/22 15:45: Call to son, Maynor, to update on private room at [facility] and no precert yet, voices understanding. Snow HOLT CM Original Note: This RN CM received message from Jose at [facility] admissions stating that she was still trying to get pt set up at another [facility] clinic despite this RN CM leaving message with [facility] to cancel referral. This RN CM has tried most of day to reach [facility] back without success and finally able to speak with another help desk support specialist at this time to clarify declination of pt and to make sure referral was cancelled. Per rep, the medical records assistant at [facility] declined pt and she states the referral has been cancelled at this time. CM to follow. Snow HOLT CM
--- NOTE | 2022-05-27 15:48 | CASEMGMT ---
Discharge Parimutuel Ticket Cashier Holley Discharge Parimutuel Ticket Cashier called Becca at [facility]. If [facility] gets pre-cert to call the main floor at [phone]. Green sheet has been placed on the chart. Charge Nurse Jaymie HOLT has been updated on the plan and has been aware of the Green sheet for discharge. Holley Hampton Discharge Parimutuel Ticket Cashier
--- NOTE | 2022-05-27 15:58 | PN.HOSP_ITS ---
Subjective Subjective Follow-up on SAQIB on CKD/upper GI/gastric ulcers: Patient was seen and examined.?No acute events overnight.?Awaiting discharge to residential facility Objective Data Objective Data Vital Signs: Vital Signs Temp Pulse Resp BP Pulse Ox O2 Del Method O2 Flow Rate 98.1 F 60 20 H 156/58 H 100 Room Air 1 05/27/22 10:00 05/27/22 15:54 05/27/22 10:00 05/27/22 11:40 05/27/22 10:00 05/27/22 10:00 05/27/22 06:40 Oxygen Flow Rate (L/min) 1 Oxygen Delivery Method Room Air Weight: 158.3 kg Body Mass Index (BMI) 54.5 Intake & Output: Intake and Output for Last 24 Hours 05/25/22 05/26/22 05/27/22 23:59 23:59 23:59 Intake Total 550 / 550 1540 / 1590 290 / 290 Output Total 4400 / 4400 Balance 550 / 550 1540 / 1390 -4110 / -4110 Lab / Micro Data Result Diagrams: 05/27/22 03:46 05/27/22 03:46 Labs: Laboratory Results - last 24 hr 05/26/22 16:48: POC Glucose 298 H 05/26/22 21:14: POC Glucose 305 H 05/27/22 03:34: Magnesium 2.2 05/27/22 03:46: WBC 6.4, RBC 2.95 L, Hgb 8.9 L, Hct 29.5 L, MCV 100.0 H, MCH 30.2, MCHC 30.2 L, RDW Std Deviation 63.6 H, RDW Coeff of Petty 17.8 H, Plt Count 146 L, MPV 11.0, Immature Gran % (Auto) 0.800, Neut % (Auto) 65.3, Lymph % (Auto) 16.0 L, [place] % (Auto) 11.6 H, Eos % (Auto) 5.5 H, Baso % (Auto) 0.8, Absolute Neuts (auto) 4.2, Absolute Lymphs (auto) 1.02, Nucleated RBC % 0 05/27/22 03:46: Sodium 135 L, Potassium 3.5, Chloride 99, Carbon Dioxide 26.0, Anion Gap 10, BUN 39 H, Creatinine 4.05 H, Estim Creat Clear Calc 14.05, Est GFR (MDRD) Af Amer 19 L, Est GFR (MDRD) Non-Af 15 L, BUN/Creatinine Ratio 9.6 L, Glucose 278 H, Calcium 8.1 L, Total Bilirubin 0.50, AST 14 L, ALT 10 L, Alkaline Phosphatase 73, Total Protein 5.9 L, Albumin 2.7 L, Globulin 3.2, Albumin /Globulin Ratio 0.8 L 05/27/22 06:31: POC Glucose 229 H 05/27/22 11:37: POC Glucose 147 H Rhythm Strip Rhythm Strip: A-fib Rate: 104 Physical Exam Narrative Physical exam: General: Alert, Oriented x3, Cooperative, obese, anasarca HEENT: Atraumatic Oral: Moist Mucosa Neck: Supple Lungs: Diminished to auscultation Cardiovascular: HS I+II, regular, no murmurs Abdomen: Bowel Sounds Present, Soft, Non Tender Extremities: No edema Skin: No rashes, No breakdown Neurological: Grossly intact Psych/Mental Status: Appropriate Assessment & Plan Assessment/Plan (1) SAQIB (acute kidney injury): (2) Chronic kidney disease, stage IV (severe): (3) Hyperkalemia: (4) Gastrointestinal bleeding: QUALIFIERS: GI bleed type/associated pathology: unspecified gastrointestinal hemorrhage type Qualified Code(s): K92.2 - Gastrointestinal hemorrhage, unspecified PLAN: Plan 1. Acute GI bleed secondary to gastric ulcers, status post EGD on 05/16/22 Continue with sucralfate for 12 weeks, continue PPI. GI consulted 2. Acute blood loss anemia requiring blood transfusions, status post 8 units packed RBCs Hemoglobin is 8.9, continue to monitor 3. Acute kidney injury superimposed on chronic kidney disease stage IIIb/IV Started on dialysis, nephrology following Repeat blood work in a.m. 4. Hyperkalemia, resolved at this time 5. Type 2 DM, blood sugars are uncontrolled, Continue Lantus 20 units a day with insulin sliding scale 6. Morbid obesity-complicates recovery, care, and prognosis. 7. Chronic heart failure with preserved EF/chronic atrial fibrillation 8. Debility, awaiting discharge to residential facility 9. DVT PPx- SCDs Charges/Coding Visit Charges Inpatient E&M: 78369 Subs Hosp L2
[2022-05-27 16:26] LABS: Bedside Glucose 283 mg/dL (74-106)
--- NOTE | 2022-05-27 17:04 | DIALYSIS ---
3.5 hrs HD completed. UF 4000 ml. CVC wNL. patient toelrated well. see dialysis docs
[2022-05-27] MEDS: oxyCODONE 5 MG Tablet PO (18:42)
[2022-05-27] MEDS: Docusate Sodium 100 MG Capsule PO (22:12)
[2022-05-27 22:25] LABS: Bedside Glucose 281 mg/dL (74-106)
[2022-05-28 02:29] VITALS: PULSE 59
[2022-05-28 04:00] VITALS: BP 129/61; PULSE 60; RESP 20; TEMP 36.6; O2SAT 97
[2022-05-28] MEDS: Acetaminophen 325 MG Tablet 650 MG PO (04:15)
[2022-05-28] MEDS: oxyCODONE 5 MG Tablet PO (04:16)
[2022-05-28 05:52] LABS: Absolute Lymphocyte Count 1.09 X10^3/uL (0.83-4.51); Absolute Neutrophil Count 3.9 X10^3/uL (2.0-7.7); Basophil# 0.07 X10^3/uL; Basophil% 1.1 % (0-1); Eosinophil# 0.31 X10^3/uL; Hematocrit 30.7 % (40-54); Hemoglobin 9.6 g/dL (13.0-16.5); Lymphocyte # 1.09 X10^3/ul (0.83-4.51); Lymphocyte % 17.5 % (19-41); Mean Corp Hgb Conc 31.3 g/dL (32-36); Mean Corpuscular Hgb 30.6 pg (27.0-32.0); Mean Corpuscular Volume 97.8 fL (80-94); Mean Platelet Vol. 11.1 fl (6.2-12.0); Monocyte# 0.79 X10^3/uL; Monocyte% 12.7 % (0-10); NRBC Flagged by Analyzer 0 % (0-5); Neutrophil # 3.94 X10^3/uL (2.7-7.7); Neutrophil % 63.1 % (47-70); Platelet Count 154 K/mm3 (150-450); RBC Distribution Width CV 17.5 % (11.6-14.6); RBC Distribution Width SD 62.2 fl (35.1-43.9); Red Blood Count 3.14 M/mm3 (4.6-6.2); White Blood Count 6.2 K/mm3 (4.4-11.0)
[2022-05-28] MEDS: Menthol/Lanolin/Calamine/Znox 113 GM Tube 1 APPLIC TOPICAL (06:06)
[2022-05-28] MEDS: Nystatin Powder 15gm Bottle 1 APPLIC TOPICAL (06:06)
[2022-05-28] MEDS: Insulin Lispro 100 UNIT/ML INSULN.PEN SC ×2 (06:09→11:42)
[2022-05-28 06:30] LABS: Bedside Glucose 211 mg/dL (74-106)
[2022-05-28 06:36] LABS: ALB/GLOB Ratio 0.8 RATIO (0.9-2.4); AST(SGOT) 15 U/L (15-37); Alanine Aminotransfer ALT/SGPT 11 U/L (16-61); Albumin, Serum 2.9 g/dL (3.2-5.0); Alkaline Phosphatase 81 U/L (45-117); Anion Gap 8 (5-15); BUN 26 mg/dL (7-18); BUN/Creat Ratio 8.2 RATIO (10-20); Calcium,Total 8.4 mg/dL (8.5-10.1); Chloride 100 mmol/L (98-107); Creatinine, Serum 3.19 mg/dL (0.70-1.30); EST Glomerular Filtration Rate 20 mL/min (>60); Est Glom Filt Rate - Afr Amer 24 mL/min (>60); Estimated Creatinine Clearance 17.84 ml/min; Globulin 3.5 g/dL (2.2-4.2); Glucose 240 mg/dL (74-106); Potassium 3.3 mmol/L (3.5-5.1); Protein, Total 6.4 g/dL (6.4-8.2); Sodium Level 134 mmol/L (136-145)
[2022-05-28 07:10] VITALS: PULSE 63
[2022-05-28 07:17] VITALS: O2SAT 95
--- NOTE | 2022-05-28 07:40 | CASEMGMT ---
Call to Vincent Nash, regional environmental manager, to notify that pt is still here at [facility] awaiting precert for SNF, voice understanding. CM to follow. Snow HOLT CM
[2022-05-28] MEDS: Potassium Chloride Oral Tablet 20 MEQ 40 MEQ PO (07:55)
--- NOTE | 2022-05-28 08:49 | CASEMGMT ---
Addendum entered by Holley Hampton 05/28/22 10:22: Holley called Becca at [facility]. Left a voicemail in regards to see if pre-cert has been obtained yet. Will continue to follow up. Holley Hampton Discharge Backrest Assembler Original Note: Discharge Backrest Assembler Becca from [facility] had informed Holley Discharge Backrest Assembler that insurance still has not approved and that insurance wanted a progress note and vitals. D/C diver assistant faxed over to [facility]. Holley Hampton Discharge Backrest Assembler
--- NOTE | 2022-05-28 08:53 | PCM.PN.REN ---
Subjective Subjective Sitting in chair, no overnight events. States felt tired after dialysis yesterday. Denies any leg cramping. Objective Data Objective Data Vital Signs: Vital Signs Temp Pulse Resp BP Pulse Ox O2 Del Method O2 Flow Rate 97.9 F 63 20 H 129/61 H 95 Room Air 1 05/28/22 04:00 05/28/22 07:10 05/28/22 04:00 05/28/22 04:00 05/28/22 07:17 05/28/22 07:17 05/27/22 06:40 Oxygen Flow Rate (L/min) 1 Oxygen Delivery Method Room Air Weight: 159.8 kg Body Mass Index (BMI) 54.5 Intake & Output: Intake and Output for Last 24 Hours 05/26/22 05/27/22 05/28/22 23:59 23:59 23:59 Intake Total 1540 / 1590 590 / 590 Output Total 4400 / 4400 Balance 1540 / 1390 -3810 / -3810 Lab / Micro Data Result Diagrams: 05/28/22 04:29 05/28/22 04:29 Labs: Laboratory Results - last 24 hr 05/27/22 03:34: Magnesium 2.2 05/27/22 11:37: POC Glucose 147 H 05/27/22 16:14: POC Glucose 283 H 05/27/22 22:08: POC Glucose 281 H 05/28/22 04:29: WBC 6.2, RBC 3.14 L, Hgb 9.6 L, Hct 30.7 L, MCV 97.8 H, MCH 30.6, MCHC 31.3 L, RDW Std Deviation 62.2 H, RDW Coeff of Petty 17.5 H, Plt Count 154, MPV 11.1, Immature Gran % (Auto) 0.600, Neut % (Auto) 63.1, Lymph % (Auto) 17.5 L, [place] % (Auto) 12.7 H, Eos % (Auto) 5.0, Baso % (Auto) 1.1 H, Absolute Neuts (auto) 3.9, Absolute Lymphs (auto) 1.09, Nucleated RBC % 0 05/28/22 04:29: Sodium 134 L, Potassium 3.3 L, Chloride 100, Carbon Dioxide 26.0, Anion Gap 8, BUN 26 H, Creatinine 3.19 H, Estim Creat Clear Calc 17.84, Est GFR (MDRD) Af Amer 24 L, Est GFR (MDRD) Non-Af 20 L, BUN/Creatinine Ratio 8.2 L, Glucose 240 H, Calcium 8.4 L, Total Bilirubin 0.70, AST 15, ALT 11 L, Alkaline Phosphatase 81, Total Protein 6.4, Albumin 2.9 L, Globulin 3.5, Albumin/Globulin Ratio 0.8 L 05/28/22 06:08: POC Glucose 211 H Micro: Microbiology 05/27/22 17:45 Nasal Secretion SARS-CoV-2 Antigen (Rapid) - Final Rhythm Strip Rhythm Strip: A-fib Rate: 104 Physical Exam Narrative General: Alert and oriented x3, NAD. HEENT: Normocephalic, atraumatic, mucous membrane moist, PERRLA. Heart: Normal S1, S2 no rubs or murmurs. Lungs: Decreased breath sound at bases bilaterally. No rales or rhonchi Abdomen: Normal bowel sound, obese, soft, nontender Extremities: 3+ edema bilaterally of the lower extremities. TDC dressing C/D/I right chest Assessment & Plan Assessment/Plan (1) SAQIB (acute kidney injury): PLAN: SAQIB is likely due to ATN from hemorrhagic shock. The patient was started on dialysis on 05/17/2022 because of hyperkalemia (K+ 7.8). He was dialyzed again on 05/18/2022. The patient was monitored off of dialysis between 05/19/2022 until 05/22/2022. Although there was no recurrence of hyperkalemia, the patient still has significant SAQIB without improvement in renal function. His serum creatinine increased to 3.20 mg/dL on 05/22/2022. Therefore, dialysis was restarted on 05/22/2022. Tunneled dialysis catheter has been placed for anticipated long-term dialysis. The patient already has significant underlying CKD. Patient is nonoliguric At this time there has been no noted renal recovery. Patient had dialysis 05/27. No acute indication for [facility] today. He is awaiting placement at [facility]. Possible discharge today, if discharged today then next dialysis will be Thursday at [facility] Discussed discharge plans with discharge team. Okay for discharge per renal since outpatient dialysis is arranged and confirmed. (2) Chronic kidney disease, stage IV (severe): PLAN: The patient has underlying chronic kidney disease stage IV with baseline serum creatinine of around 2.30 mg/dL, followed by Dr. Garcia He likely has diabetic kidney disease. Will continue to monitor for renal recovery, but this may take a while. (3) Hyperkalemia: PLAN: Hyperkalemia was secondary to SAQIB and reabsorption of blood from upper GI bleed. Hyperkalemia has resolved with dialysis. We will continue to monitor potassium level. K+ 3.3 today, he was given oral potassium this am. Recommend no further potassium supplement. (4) Gastrointestinal bleeding: QUALIFIERS: GI bleed type/associated pathology: unspecified gastrointestinal hemorrhage type Qualified Code(s): K92.2 - Gastrointestinal hemorrhage, unspecified PLAN: Management as per primary services and GI. Acute diverticular bleed treated endoscopically, on stool softeners bid for the next 7 days, then daily, per GI no contraindication for anticoagulation at this time.
[2022-05-28 10:00] VITALS: BP 143/67; PULSE 79; RESP 18; TEMP 36.1; O2SAT 99
[2022-05-28] MEDS: Azelastine HCl NASAL.SRY 1 SPRAY NASAL (10:24)
[2022-05-28] MEDS: Sucralfate 1 GM Tablet PO (10:25)
[2022-05-28] MEDS: Fluticasone 0.05% 1 SPRAY NASAL.SRY NASAL (10:25)
[2022-05-28] MEDS: Insulin Glargine-YFGN 100 UNIT/ML Pen 40 UNIT SC (10:25)
[2022-05-28] MEDS: Pantoprazole Sodium 40 MG Tablet PO (10:26)
[2022-05-28 10:27] VITALS: BP 143/67; PULSE 79
[2022-05-28] MEDS: Metoprolol Tartrate 50 MG Tablet PO (10:27)
--- NOTE | 2022-05-28 10:53 | CASEMGMT ---
Addendum entered by Holley Hampton 05/28/22 11:14: Holley Discharge Storage Engineer faxed over D/C orders to [facility]. svp group director time is at 13:00 with [facility]. [facility], Patient and RN has been notified. Holley Hampton Discharge Storage Engineer Original Note: Discharge Storage Engineer Becca from [facility] reached out to Holley D/C surgical physician assistant. Pre-cert has been obtained. DARIO Petit has been notified. Holley Hampton Discharge Storage Engineer
--- NOTE | 2022-05-28 10:57 | CASEMGMT ---
Social Work Per discharge strategy planning consultantHolley. Pre-cert has been obtained and patient can discharge to [facility] today. Transportation set up via [facility] at 13:00. Transportation form completed and placed with patient discharge information. This social media coordinator updated medical team, patient, and patient son on above information. 7000 completed in [place]TH[place]. Holley to fax discharge packet, medication list, dialysis schedule, 7000, and COVID screening tool. PLAN: [facility], skilled. Antonette RICARDO, SVETLANA-S
--- NOTE | 2022-05-28 11:10 | PCM.DC.SUM ---
Providers Date of Admission: 05/16/22 Date of Discharge: 05/28/22 Primary Care Physician: Dr. Alvarado Sam MD Consultations 05/16/22 06:47 Consult: Gastroenterology Routine Consulting Provider: [facility] Reason for Consult: GI bleed EMERGENT Consult: No Notified: Yes Date Notified: 05/16/22 Time Notified: 06:21 Method of Notification: ED Physician Initiated Consult: Onc/Wound/street commissioner Routine Comment: 05/17/22 02:41 Consult: Enrober / Pulmonary Medicine Routine Consulting Provider: Pulmonary Medicine [facility] Reason for Consult: shock EMERGENT Consult: No Notified: Yes Date Notified: 05/17/22 Time Notified: 02:23 Method of Notification: Text Method of Consult:: In-Person 05/17/22 10:10 Consult: Nephrology Routine Consulting Provider: Almaz Holland Reason for Consult: Hyperkalemia in the setting of CKD EMERGENT Consult: No Notified: Yes Date Notified: 05/17/22 Time Notified: 10:10 Method of Notification: Answering Service Method of Consult:: In-Person 05/22/22 09:11 Consult: General Surgery Routine Consulting Provider: Josep Severino Reason for Consult: tunneled diaylsis cath EMERGENT Consult: No Notified: Yes Date Notified: 05/22/22 Time Notified: 09:11 Method of Notification: Verbal Reason For Visit: GI BLEED Diagnosis Discharge Diagnosis (1) SAQIB (acute kidney injury): Status: Acute Code(s): N17.9 - Acute kidney failure, unspecified (2) Chronic kidney disease, stage IV (severe): Status: Chronic Code(s): N18.4 - Chronic kidney disease, stage 4 (severe) (3) Hyperkalemia: Status: Acute Code(s): E87.5 - Hyperkalemia (4) Gastrointestinal bleeding: Status: Acute Code(s): K92.2 - Gastrointestinal hemorrhage, unspecified Qualifiers: GI bleed type/associated pathology: unspecified gastrointestinal hemorrhage type Qualified Code(s): K92.2 - Gastrointestinal hemorrhage, unspecified Medications at Discharge Home Medications allopurinol 300 mg tablet 300 mg PO DAILY gout 01/04/15 vitamin B complex 1 ea PO DAILY supplement 10/24/16 cyclobenzaprine 10 mg tablet 5 mg PO BID muscle spasm 08/13/18 albuterol 90 mcg/actuation aerosol inhaler 2 mcg inhalation Q4H PRN PRN Shortness Of Breath Or Wheezing 05/08/22 azelastine-fluticasone 137 mcg-50 mcg/spray nasal spray 1 spray intranasal BID allergies 05/08/22 cetirizine 10 mg tablet 10 mg PO DAILY allergies 05/08/22 cholecalciferol (vitamin D3) 50 mcg (2,000 unit) capsule (Vitamin D3) 50 mcg PO DAILY suppliment 05/08/22 ezetimibe 10 mg tablet (Zetia) 10 mg PO DAILY cholesterol 05/08/22 gabapentin 100 mg tablet 100 mg PO TID neuropathy 05/08/22 multivitamin 1 cap PO DAILY suppliement 05/08/22 pravastatin 40 mg tablet 40 mg PO QHS cholesterol 05/08/22 metoprolol tartrate 50 mg tablet 50 mg PO BID #0 tabs 05/27/22 nystatin 100,000 unit/gram topical powder (Nyamyc) 1 applic topical TID #0 grams 05/27/22 pantoprazole 40 mg tablet,delayed release 40 mg PO BID #0 tabs 05/27/22 sodium chloride 0.65 % nasal spray aerosol (Deep Sea Nasal) 2 spray NASAL TID PRN PRN NASAL DRYNESS #0 mL 05/27/22 sucralfate 1 gram tablet 1 g PO BID #0 tabs 05/27/22 insulin glargine-yfgn 100 unit/mL (3 mL) subcutaneous pen 40 unit (0.4 mL) subcut DAILY #0 mL 05/28/22 Hospital Course Operations None Procedures Central line placement and Dialysis Summary of Care Provided Minutes Spent on Discharge: 45 Hospital Course: 78-year-old male with multiple comorbidities including COPD, chronic atrial fibrillation, heart failure preserved EF who presented with hematochezia. Patient had CTA done in the emergency room that showed no active bleeding but only showed moderate fluid in the mid to distal colon and moderate stool in the most proximal half of the colon. Patient was hypotensive in the ED. He received IV fluids and PCC as he was on apixaban for atrial fibrillation. Gastroenterology was consulted. He went EGD on 05/16/2022 that showed gastric ulcers. Patient was kept on PPI and sucralfate. Patient did require 8 units of packed RBCs in this hospital stay. He had evidence of acute kidney injury superimposed on his CKD stage IIIb/IV. Nephrology was consulted. Patient eventually was started on dialysis. He had changes to his Lantus for his blood sugars. He was seen by PT and OT and skilled for discharge to half-way facility. Patient will have dialysis next on Thursday. He was continued on PPI and sacral fate. He will follow-up with GI in the outpatient. Physical Exam Narrative Physical exam: General: Alert, Oriented x3, Cooperative, obese, anasarca HEENT: Atraumatic Oral: Moist Mucosa Neck: Supple Lungs: Diminished to auscultation Cardiovascular: HS I+II, regular, no murmurs Abdomen: Bowel Sounds Present, Soft, Non Tender Extremities: No edema Skin: No rashes, No breakdown Neurological: Grossly intact Psych/Mental Status: Appropriate Weight / BMI Weight Weight: 159.8 kg Body Mass Index (BMI) 54.5 ABG / Lab / Microbiology Data Result Diagrams: 05/28/22 04:29 05/28/22 04:29 Laboratory: Laboratory Results - last 24 hr 05/27/22 03:34: Magnesium 2.2 05/27/22 11:37: POC Glucose 147 H 05/27/22 16:14: POC Glucose 283 H 05/27/22 22:08: POC Glucose 281 H 05/28/22 04:29: WBC 6.2, RBC 3.14 L, Hgb 9.6 L, Hct 30.7 L, MCV 97.8 H, MCH 30.6, MCHC 31.3 L, RDW Std Deviation 62.2 H, RDW Coeff of Petty 17.5 H, Plt Count 154, MPV 11.1, Immature Gran % (Auto) 0.600, Neut % (Auto) 63.1, Lymph % (Auto) 17.5 L, Will % (Auto) 12.7 H, Eos % (Auto) 5.0, Baso % (Auto) 1.1 H, Absolute Neuts (auto) 3.9, Absolute Lymphs (auto) 1.09, Nucleated RBC % 0 05/28/22 04:29: Sodium 134 L, Potassium 3.3 L, Chloride 100, Carbon Dioxide 26.0, Anion Gap 8, BUN 26 H, Creatinine 3.19 H, Estim Creat Clear Calc 17.84, Est GFR (MDRD) Af Amer 24 L, Est GFR (MDRD) Non-Af 20 L, BUN/Creatinine Ratio 8.2 L, Glucose 240 H, Calcium 8.4 L, Total Bilirubin 0.70, AST 15, ALT 11 L, Alkaline Phosphatase 81, Total Protein 6.4, Albumin 2.9 L, Globulin 3.5, Albumin/Globulin Ratio 0.8 L 05/28/22 06:08: POC Glucose 211 H Microbiology: Microbiology 05/27/22 17:45 Nasal Secretion SARS-CoV-2 Antigen (Rapid) - Final D/C Instructions Discharge Diet: Renal Diet Meaningful Use Info Meaningful Use Diagnoses (Choose all that apply): None applicable Discharge Plan Admission Admit Date/Time: 05/16/22 06:12 Primary Reason for Your Visit: SAQIB/Severe anemia/GI bleed Attending Provider: Cleo Olivas Primary Care Provider: Alvarado Sam Consulting Providers: David Barrera ; Vic Mccracken ; Martin Angel ; Lizeth Chiu NP ; Almaz Holland ; Tomas Mcbride ; Josep Severino ; Alvarado Parada Discharge Orders/Prescriptions Prescriptions: New pantoprazole 40 mg Tablet,Delayed Release (Dr/Ec) 40 mg PO BID Qty: 0 0RF metoprolol tartrate 50 mg Tablet 50 mg PO BID Qty: 0 0RF nystatin [Nyamyc] 100,000 unit/gram Powder 1 applic topical TID Qty: 0 0RF Protocol: *Topical Application Instructions APPLICATION INSTRUCTIONS: to abdominal folds and excoriated areas Deep Sea Nasal 0.65 % Aerosol,[place] 2 spray NASAL TID PRN PRN (Reason: NASAL DRYNESS) Qty: 0 0RF sucralfate 1 gram Tablet 1 g PO BID Qty: 0 0RF insulin glargine-yfgn 100 unit/mL (3 mL) Insulin Pen 40 unit subcut DAILY Qty: 0 0RF Continued allopurinol 300 MG tablet 300 mg PO DAILY vitamin B complex 1 EACH capsule 1 ea PO DAILY cyclobenzaprine 10 MG tablet 5 mg PO BID cetirizine 10 mg Tablet 10 mg PO DAILY pravastatin 40 mg Tablet 40 mg PO QHS albuterol 90 mcg/actuation Aerosol 2 mcg INHALATION Q4H PRN PRN (Reason: Shortness Of Breath Or Wheezing) Rx Instructions: 2 puffs q4hr prn multivitamin Capsule 1 cap PO DAILY ezetimibe [Zetia] 10 mg Tablet 10 mg PO DAILY gabapentin 100 mg Tablet 100 mg PO TID cholecalciferol (vitamin D3) [Vitamin D3] 50 mcg (2,000 unit) Capsule 50 mcg PO DAILY azelastine-fluticasone 137-50 mcg/spray [place],Non-Aerosol 1 spray INTRANASAL BID Rx Instructions: administer into each nostril Discontinued metoprolol tartrate 50 MG tablet 100 mg PO BID aspirin 81 MG tablet,chewable 81 mg PO DAILY@0800 oxycodone-acetaminophen 1 EACH tablet 1 - 2 tab PO Q6H PRN PRN (Reason: Pain) Label Comments: take 1 tablet by mouth twice a day if needed for pain torsemide 20 mg Tablet 30 mg PO DAILY Hold Instructions: Resume on 05/15/22. oxybutynin chloride [Ditropan XL] 10 mg Tablet Extended Release 24hr 10 mg PO DAILY spironolactone 25 mg Tablet 25 mg PO DAILY Hold Instructions: Resume on 05/15/22. nifedipine 60 mg Tablet Extended Release 24hr 60 mg PO DAILY losartan 100 mg Tablet 100 mg PO DAILY insulin aspart U-100 [Novolog Flexpen U-100 Insulin] 100 unit/mL (3 mL) Insulin Pen 10 unit SUBCUT 4X/DAY Soliqua 100/33 100 unit-33 mcg/mL Insulin Pen 55 unit SUBCUT DAILY Eliquis 5 mg tablet 5 mg PO BID Referrals / Follow Up: Alvarado Sam MD [Primary Care Provider] - In 1 Week Raz Acosta DO [STAFF PHYSICIAN] - Within 2 Weeks Disposition Disposition (needs filled in before D/C Order can be placed): [facility] Facility Charges/Coding Visit Charges Inpatient E&M: 08059 Disch Hosp
--- NOTE | 2022-05-28 11:30 | CASEMGMT ---
Call to Moshe at [facility] and he is aware that pt discharging today and that he will be at treatment on Thursday at 0900. Snow HOLT CM
--- NOTE | 2022-05-28 11:37 | WOUNDNOTE ---
Dry blisters noted to bilateral lower legs. since there has been no drainage, dressings have been left off. the Adaptic was painful to be removed. there are no signs of infection noted. pt being discharged to the care home today.
--- NOTE | 2022-05-28 11:41 | PHA.DC.MR ---
Pharmacy Service has performed discharge medication reconciliation for this patient. The patient's discharge medication list was reviewed for discrepancies and discrepancies were resolved. Home Medications allopurinol 300 mg tablet 300 mg PO DAILY gout 01/04/15 vitamin B complex 1 ea PO DAILY supplement 10/24/16 cyclobenzaprine 10 mg tablet 5 mg PO BID muscle spasm 08/13/18 albuterol 90 mcg/actuation aerosol inhaler 2 mcg inhalation Q4H PRN PRN Shortness Of Breath Or Wheezing 05/08/22 azelastine-fluticasone 137 mcg-50 mcg/spray nasal spray 1 spray intranasal BID allergies 05/08/22 cetirizine 10 mg tablet 10 mg PO DAILY allergies 05/08/22 cholecalciferol (vitamin D3) 50 mcg (2,000 unit) capsule (Vitamin D3) 50 mcg PO DAILY suppliment 05/08/22 ezetimibe 10 mg tablet (Zetia) 10 mg PO DAILY cholesterol 05/08/22 gabapentin 100 mg tablet 100 mg PO TID neuropathy 05/08/22 multivitamin 1 cap PO DAILY suppliement 05/08/22 pravastatin 40 mg tablet 40 mg PO QHS cholesterol 05/08/22 metoprolol tartrate 50 mg tablet 50 mg PO BID #0 tabs 05/27/22 nystatin 100,000 unit/gram topical powder (Nyamyc) 1 applic topical TID #0 grams 05/27/22 pantoprazole 40 mg tablet,delayed release 40 mg PO BID #0 tabs 05/27/22 sodium chloride 0.65 % nasal spray aerosol (Deep Sea Nasal) 2 spray NASAL TID PRN PRN NASAL DRYNESS #0 mL 05/27/22 sucralfate 1 gram tablet 1 g PO BID #0 tabs 05/27/22 insulin glargine-yfgn 100 unit/mL (3 mL) subcutaneous pen 40 unit (0.4 mL) subcut DAILY #0 mL 05/28/22
[2022-05-28 12:20] LABS: Bedside Glucose 255 mg/dL (74-106)
--- NOTE | 2022-05-28 12:23 | NURSING ---
1150-pt back to bed for scrap charger to remove central line per order and for pt's dc
--- NOTE | 2022-05-28 12:50 | NURSING ---
report called to [facility] with no questions. pt back up to chair for lunch. all belongings packed and ready for dc. per cm pt family aware of transfer/dc today
--- NOTE | 2022-05-28 13:50 | NURSING ---
dc'd to [facility] via cart with all belongings.
== END 2022-05-28 13:30 | disposition skilled nursing facility (03) | DRG 377 ==
LOC: ED 06:15 → PCU 06:17 → ICU 05-17 08:50 → PCU 05-19 18:04
PROVIDERS: Anesthesiology; Family Medicine; Internal Medicine; Internal Medicine Critical Care Medicine; Internal Medicine Gastroenterology; Internal Medicine Nephrology; Physician Assistant; Surgery; Emergency Provider Emergency Medicine; PCP Family Medicine; Visit Provider Internal Medicine
PROC: 0DJ08ZZ Inspection of Upper Intestinal Tract, Via Natural or Artificial Opening Endoscopic (ICD-10-PCS; CPT 43235; principal; 2022-05-16 11:55)
PROC: 0DJD8ZZ Inspection of Lower Intestinal Tract, Via Natural or Artificial Opening Endoscopic (ICD-10-PCS; CPT 45378; principal; 2022-05-20 15:55)
PROC: 05PYX3Z Removal of Infusion Device from Upper Vein, External Approach (ICD-10-PCS; principal; 2022-05-23 09:30)
DX: K57.31 Diverticulosis of large intestine without perforation or abscess with bleeding (principal); R57.8 Other shock; N17.0 Acute kidney failure with tubular necrosis; I13.0 Hypertensive heart and chronic kidney disease with heart failure and stage 1 through stage 4 chronic kidney disease, or unspecified chronic kidney disease; I48.20 Chronic atrial fibrillation, unspecified; D62 Acute posthemorrhagic anemia; I50.32 Chronic diastolic (congestive) heart failure; N18.4 Chronic kidney disease, stage 4 (severe); Z68.43 Body mass index [BMI] 50.0-59.9, adult; I27.20 Pulmonary hypertension, unspecified; E11.22 Type 2 diabetes mellitus with diabetic chronic kidney disease; E66.01 Morbid (severe) obesity due to excess calories; Z79.4 Long term (current) use of insulin; Z99.2 Dependence on renal dialysis; J44.9 Chronic obstructive pulmonary disease, unspecified; E87.5 Hyperkalemia; K44.9 Diaphragmatic hernia without obstruction or gangrene; E78.5 Hyperlipidemia, unspecified; M10.9 Gout, unspecified; G47.33 Obstructive sleep apnea (adult) (pediatric); K62.1 Rectal polyp; Z79.82 Long term (current) use of aspirin; G89.29 Other chronic pain; Z87.891 Personal history of nicotine dependence; K25.4 Chronic or unspecified gastric ulcer with hemorrhage; Z79.899 Other long term (current) drug therapy; Z79.01 Long term (current) use of anticoagulants
CPT/HCPCS: 36415; 71045; 74174; 77001; 80048; 80053; 80069; 80076; 82962; 83036; 83605; 83735; 84100; 84484; 85014; 85018; 85025; 85027; 85610; 85730; 86704; 86850; 86900; 86901; 86920; 86922; 87340; 87811; 88305; 90937; 93005; 97110; 97116; 97163; 97167; 97530; 97535; 97802; 97803; 99283; J7030; J7040; J7050; J7168; P9016; Q9967; A4216; A4648; C1752; G0257; J0610; J2405; J3490

== ENCOUNTER → 2022-05-30 | Outpatient (REF) | payer SELFPAY ==
[2022-05-30 09:22] LABS: Hematocrit 29.2 % (40-54); Hemoglobin 8.9 g/dL (13.0-16.5); Mean Corp Hgb Conc 30.5 g/dL (32-36); Mean Corpuscular Hgb 30.8 pg (27.0-32.0); Platelet Count 146 K/mm3 (150-450); RBC Distribution Width CV 17.2 % (11.6-14.6); RBC Distribution Width SD 63.2 fl (35.1-43.9); Red Blood Count 2.89 M/mm3 (4.6-6.2); White Blood Count 5.3 K/mm3 (4.4-11.0)
[2022-05-30 09:41] LABS: ALB/GLOB Ratio 0.8 RATIO (0.9-2.4); AST(SGOT) 21 U/L (15-37); Alanine Aminotransfer ALT/SGPT 16 U/L (16-61); Albumin, Serum 2.8 g/dL (3.2-5.0); Alkaline Phosphatase 73 U/L (45-117); Anion Gap 9 (5-15); BUN 36 mg/dL (7-18); BUN/Creat Ratio 13.7 RATIO (10-20); Calcium,Total 8.6 mg/dL (8.5-10.1); Chloride 101 mmol/L (98-107); Cholesterol 127 mg/dL (200); Creatinine, Serum 2.63 mg/dL (0.70-1.30); EST Glomerular Filtration Rate 25 mL/min (>60); Est Glom Filt Rate - Afr Amer 30 mL/min (>60); Globulin 3.4 g/dL (2.2-4.2); Glucose 188 mg/dL (74-106); High Density Lipoprotein 54 mg/dL; Potassium 3.8 mmol/L (3.5-5.1); Protein, Total 6.2 g/dL (6.4-8.2); Sodium Level 136 mmol/L (136-145); Triglycerides 103 mg/dL; Very Low Density Lipoprotein 21 mg/dL (5-40)
[2022-05-30 10:21] LABS: Hemoglobin A1c 6.2 % (3.8-5.6)
== END | disposition home or self-care (01) ==
LOC: OLS.SW1020 04:00
PROVIDERS: PCP Family Medicine; Visit Provider Family Medicine
DX: I10 Essential (primary) hypertension (principal); E11.9 Type 2 diabetes mellitus without complications; E78.5 Hyperlipidemia, unspecified; D64.9 Anemia, unspecified
CPT/HCPCS: 36415; 80053; 80061; 83036; 85027

== ENCOUNTER 2022-06-03 16:17 | Inpatient (IN) | payer MEDICARE, SELFPAY ==
[2022-06-03] VITALS (10 sets, daily range): BP systolic 98–140; BP diastolic 43–58; PULSE 64–74; RESP 12–22; TEMP 35.9–36.6; O2SAT 93–100; BMI 54.7; BMI 53.4
--- NOTE | 2022-06-03 16:43 | EDS_ITS ---
HPI History of Present Illness Chief Complaint: Alt LOC Informant: family Onset/Context/Timing Onset: Today Context: Sudden Onset Timing: Continuous Quality: Confused Location: Generalized Worsened by: Nothing Relieved by: Nothing Narrative Narrative: Patient presents with altered mental status that was noticed today. [facility] when family visited him and noticed that he was confused and not acting right. Family reports that the patient thought he was outside fishing while he was still at the jail. Patient had a normal blood sugar at the jail. Family denies any fevers or chills. Patient denies any headaches. Currently, patient knows it is 2021 and he is at [facility]. [facility] Medical History Acute respiratory failure with hypoxia Atrial fibrillation, new onset Chronic back pain Chronic obstructive pulmonary disease COPD (chronic obstructive pulmonary disease) Debility Diabetes Gout Heart failure with preserved ejection fraction Hyperlipidemia Hypertension Hypertension Lumbar canal stenosis Morbid obesity Type 2 diabetes mellitus Home Medications vitamin B complex 1 ea PO DAILY supplement 10/24/16 [History Last Taken 11/16/16 06:00] cyclobenzaprine 10 mg tablet 5 mg PO BID muscle spasm 08/13/18 [History Last Taken Unknown] albuterol 90 mcg/actuation aerosol inhaler 2 mcg inhalation Q4H PRN PRN Shortness Of Breath Or Wheezing 05/08/22 [History Last Taken Unknown] azelastine-fluticasone 137 mcg-50 mcg/spray nasal spray 1 spray intranasal BID allergies 05/08/22 [History Last Taken Unknown] cetirizine 10 mg tablet 10 mg PO DAILY allergies 05/08/22 [History Last Taken Unknown] cholecalciferol (vitamin D3) 50 mcg (2,000 unit) capsule (Vitamin D3) 50 mcg PO DAILY suppliment 05/08/22 [History Last Taken Unknown] ezetimibe 10 mg tablet (Zetia) 10 mg PO DAILY cholesterol 05/08/22 [History Last Taken Unknown] gabapentin 100 mg tablet 100 mg PO TID neuropathy 05/08/22 [History Last Taken Unknown] multivitamin 1 cap PO DAILY suppliement 05/08/22 [History Last Taken Unknown] pravastatin 40 mg tablet 40 mg PO QHS cholesterol 05/08/22 [History Last Taken Unknown] metoprolol tartrate 50 mg tablet 50 mg PO BID #0 tabs 05/27/22 [Rx Last Taken Unknown] pantoprazole 40 mg tablet,delayed release 40 mg PO BID #0 tabs 05/27/22 [Rx Last Taken Unknown] sodium chloride 0.65 % nasal spray aerosol (Deep Sea Nasal) 2 spray NASAL TID PRN PRN NASAL DRYNESS #0 mL 05/27/22 [Rx Last Taken Unknown] sucralfate 1 gram tablet 1 g PO BID #0 tabs 05/27/22 [Rx Last Taken Unknown] insulin glargine-yfgn 100 unit/mL (3 mL) subcutaneous pen 40 unit (0.4 mL) subcut DAILY #0 mL 05/28/22 [Rx Last Taken Unknown] losartan 50 mg tablet 50 mg PO DAILY 06/03/22 [History Last Taken Unknown] spironolactone 25 mg tablet 25 mg PO DAILY 06/03/22 [History Last Taken Unknown] torsemide 20 mg tablet 20 mg PO DAILY 06/03/22 [History Last Taken Unknown] Allergy/AdvReac Type Severity Reaction Status Date / Time grass pollen Allergy Hives Verified 05/16/22 02:49 Latex, Natural Rubber Allergy Unknown Verified 05/16/22 02:49 Surgical History History of bilateral knee replacement History of cholecystectomy History of elbow surgery Social History household members: none Smoking Status: Former smoker alcohol intake: never substance use type: does not use ROS ROS ED Review of Systems ROS Unobtainable: due to mental status EXAM Physical Exam Const Vital Signs: 06/03/22 16:23 06/03/22 16:40 06/03/22 18:05 Temperature 97.7 F L Temperature Source Temporal Pulse Rate 68 65 65 Respiratory Rate 14 16 17 Blood Pressure 112/53 L 98/51 L 125/58 H Blood Pressure Mean 72 66 80 Pulse Ox 97 93 96 Oxygen Delivery Method Room Air Room Air Nasal Cannula Oxygen Flow Rate (L/min) 3 Positive well nourished and well developed General Appearance ED: well developed HEENT Reports moist mucous membranes Neck supple and no JVD Resp normal respiratory effort and clear to auscultation bilaterally Cardio regular rate, regular rhythm and no murmurs GI normal to inspection, nondistended, normoactive bowel sounds and non-tender Palpation: soft Extremity normal to inspection General Extremety ED: Negative for edema or tenderness General Extremity: Negative for edema Neuro CN's II-XII intact bilaterally and no sensory deficits noted Sensorium / Orientation: alert Motor Exam: strength 5/5 throughout Skin no rashes or lesions noted MDM MDM MDM Narrative Medical decision making narrative: CBC shows anemia with a hemoglobin of 8.8 and hematocrit 29.9. These are consistent with prior results. Pro time was 15.5 and INR is 1.3. PTT was normal. Comprehensive metabolic profile showed a sodium of 131 and chloride of 96. BUN was 30 and creatinine was 3.37. These are also consistent with prior results. High-sensitivity troponin was normal at 36. Lactate was normal at 1.9. Urinalysis does not show any evidence of urinary tract infection or hematuria. CT scan of the brain was obtained. There is no acute intracranial abnormality. There are chronic changes noted. This was interpreted by the radiologist and reviewed by myself. Portable 1 view chest x-ray was obtained. On my interpretation, lung wheeler show bibasilar atelectasis. There is normal cardiac silhouette. Bony thorax is normal. There is no acute process noted. Radiologist also interpreted the x-ray and agrees. Patient is still confused on reevaluation. Case was discussed with the hospitalist. She will admit the patient for observation. Patient and family understood and were agreeable with the plan. All questions were answered. Lab Data Attestation: I reviewed the patient's lab results. Labs: Laboratory Results - last 24 hr 06/03/22 06/03/22 06/03/22 17:15 17:15 17:15 WBC 8.1 RBC 2.94 L Hgb 8.8 L Hct 29.9 L MCV 101.7 H MCH 29.9 MCHC 29.4 L RDW Std Deviation 62.0 H RDW Coeff of Petty 16.6 H Plt Count 134 L MPV 10.7 Immature Gran % (Auto) 0.500 Neut % (Auto) 64.2 Lymph % (Auto) 13.8 L [place] % (Auto) 17.0 H Eos % (Auto) 3.6 Baso % (Auto) 0.9 Absolute Neuts (auto) 5.2 Absolute Lymphs (auto) 1.11 Nucleated RBC % 0 PT 15.5 H INR 1.3 APTT 35.3 Sodium 131 L Potassium 4.6 Chloride 96 L Carbon Dioxide 28.0 Anion Gap 7 BUN 30 H Creatinine 3.37 H Estim Creat Clear Calc 16.89 Est GFR (MDRD) Af Amer 23 L Est GFR (MDRD) Non-Af 19 L BUN/Creatinine Ratio 8.9 L Glucose 107 H Lactic Acid Calcium 8.3 L Total Bilirubin 0.70 AST 27 ALT 18 Alkaline Phosphatase 84 Troponin I High Sens 36 Total Protein 6.8 Albumin 3.1 L Globulin 3.7 Albumin/Globulin Ratio 0.8 L Urine Color Urine Clarity Urine pH Ur Specific Duncan Urine Protein Urine Glucose (UA) Urine Ketones Urine Occult Blood Urine Nitrite Urine Bilirubin Urine Urobilinogen Ur Leukocyte Esterase Urine RBC Urine WBC Ur Squamous Epith Cells Urine Bacteria Hyaline Casts Coarse Granular Casts Urine Mucus 06/03/22 06/03/22 17:15 18:00 WBC RBC Hgb Hct MCV MCH MCHC RDW Std Deviation RDW Coeff of Petty Plt Count MPV Immature Gran % (Auto) Neut % (Auto) Lymph % (Auto) [place] % (Auto) Eos % (Auto) Baso % (Auto) Absolute Neuts (auto) Absolute Lymphs (auto) Nucleated RBC % PT INR APTT Sodium Potassium Chloride Carbon Dioxide Anion Gap BUN Creatinine Estim Creat Clear Calc Est GFR (MDRD) Af Amer Est GFR (MDRD) Non-Af BUN/Creatinine Ratio Glucose Lactic Acid 1.9 Calcium Total Bilirubin AST ALT Alkaline Phosphatase Troponin I High Sens Total Protein Albumin Globulin Albumin/Globulin Ratio Urine Color Yellow Urine Clarity Clear Urine pH 5.0 Ur Specific Duncan 1.020 Urine Protein 30 H Urine Glucose (UA) Normal Urine Ketones Negative Urine Occult Blood Negative Urine Nitrite Negative Urine Bilirubin 3 H Urine Urobilinogen 1 H Ur Leukocyte Esterase 25 H Urine RBC 0-5 SEEN Urine WBC 0-5 SEEN Ur Squamous Epith Cells 0-5 SEEN Urine Bacteria 1+ Hyaline Casts 10-25 SEEN Coarse Granular Casts 5-10 SEEN Urine Mucus 0 SEEN Radiography Chest X-Ray - ED: 1 View, Read by ED Physician, Read by Radiologist and - (Bibasilar atelectasis) Diagnostic Testing: Clinical Impression(s) from Imaging Studies Brain CT 06/03/22 16:48 IMPRESSION: Chronic microvascular ischemic change without acute intracranial or calvarial abnormality. No interval change. Electronically Signed: Benito Diaz DO at 17:57 EDT Reading Location ID and State: [address] [place] [address] Tel [phone], Service support , Chest X-Ray 06/03/22 17:31 IMPRESSION: 1. Limited inspiratory effort. Atelectasis versus infiltrate at the lung bases. 2. No other interval change. Electronically Signed: Benito Diaz DO at 17:55 EDT Reading Location ID and State: [address] [place] [address] Tel [phone], Service support , Discharge Plan Triage Chief Complaint: Alt LOC ED Provider: David Romano Dx/Rx/DC Orders Clinical Impression: Acute confusion, Chronic kidney disease, stage IV (severe) Prescriptions: No Action vitamin B complex 1 EACH capsule 1 ea PO DAILY cyclobenzaprine 10 MG tablet 5 mg PO BID cetirizine 10 mg Tablet 10 mg PO DAILY pravastatin 40 mg Tablet 40 mg PO QHS albuterol 90 mcg/actuation Aerosol 2 mcg INHALATION Q4H PRN PRN (Reason: Shortness Of Breath Or Wheezing) Rx Instructions: 2 puffs q4hr prn multivitamin Capsule 1 cap PO DAILY ezetimibe [Zetia] 10 mg Tablet 10 mg PO DAILY gabapentin 100 mg Tablet 100 mg PO TID cholecalciferol (vitamin D3) [Vitamin D3] 50 mcg (2,000 unit) Capsule 50 mcg PO DAILY azelastine-fluticasone 137-50 mcg/spray [place],Non-Aerosol 1 spray INTRANASAL BID Rx Instructions: administer into each nostril pantoprazole 40 mg Tablet,Delayed Release (Dr/Ec) 40 mg PO BID Qty: 0 0RF metoprolol tartrate 50 mg Tablet 50 mg PO BID Qty: 0 0RF Deep Sea Nasal 0.65 % Aerosol,[place] 2 spray NASAL TID PRN PRN (Reason: NASAL DRYNESS) Qty: 0 0RF sucralfate 1 gram Tablet 1 g PO BID Qty: 0 0RF insulin glargine-yfgn 100 unit/mL (3 mL) Insulin Pen 40 unit subcut DAILY Qty: 0 0RF losartan 50 mg Tablet 50 mg PO DAILY torsemide 20 mg Tablet 20 mg PO DAILY spironolactone 25 mg Tablet 25 mg PO DAILY Primary Care Provider: Alvarado Sam Referrals: Alvarado Sam MD [Primary Care Provider] - Disposition Disposition: Acute Care Hospital [facility]
--- NOTE | 2022-06-03 16:48 | CT_ITS ---
STUDY: CT BRAIN WITHOUT CONTRAST REASON FOR EXAM: Male, 76 years old. Altered mental status. RADIATION DOSAGE (If Supplied By Facility): CTDIvol = ( ) mGy, DLP = ( a 12.98 ) mGycm TECHNIQUE: Transaxial CT imaging of the brain was performed without administration of intravenous contrast material. Individualized dose optimization techniques were used for this CT. COMPARISON: 05/07/2022. FINDINGS: Normal soft tissue structures. Normal calvarium. Normal size ventricles and extra-axial spaces for the patient''s age. There are areas of decreased attenuation within the white matter tracts of the supratentorial brain, consistent with microvascular disease changes. Normal basal ganglia and thalami. Normal brainstem. Normal cerebellum. There is no intracranial hemorrhage. There are no findings of an acute ischemic infarction. Normal visualized paranasal sinuses. CT/Brain/Head without Contrast IMPRESSION: Chronic microvascular ischemic change without acute intracranial or calvarial abnormality. No interval change. Electronically Signed: Benito Diaz DO at 17:57 EDT Reading Location ID and State: [address] [place] [address] Tel [phone], Service support ,
[2022-06-03 17:28] LABS: Absolute Lymphocyte Count 1.11 X10^3/uL (0.83-4.51); Absolute Neutrophil Count 5.2 X10^3/uL (2.0-7.7); Basophil# 0.07 X10^3/uL; Basophil% 0.9 % (0-1); Eosinophil# 0.29 X10^3/uL; Eosinophils% 3.6 % (0-5); Hematocrit 29.9 % (40-54); Hemoglobin 8.8 g/dL (13.0-16.5); Lymphocyte # 1.11 X10^3/ul (0.83-4.51); Lymphocyte % 13.8 % (19-41); Mean Corp Hgb Conc 29.4 g/dL (32-36); Mean Corpuscular Hgb 29.9 pg (27.0-32.0); Mean Corpuscular Volume 101.7 fL (80-94); Mean Platelet Vol. 10.7 fl (6.2-12.0); Monocyte# 1.37 X10^3/uL; NRBC Flagged by Analyzer 0 % (0-5); Neutrophil # 5.17 X10^3/uL (2.7-7.7); Neutrophil % 64.2 % (47-70); Platelet Count 134 K/mm3 (150-450); RBC Distribution Width CV 16.6 % (11.6-14.6); Red Blood Count 2.94 M/mm3 (4.6-6.2); White Blood Count 8.1 K/mm3 (4.4-11.0)
--- NOTE | 2022-06-03 17:31 | RAD_ITS ---
STUDY: X-RAY CHEST REASON FOR EXAM: Male, 76 years old. Cough. TECHNIQUE: Single AP portable view of the chest. COMPARISON: 05/23/2022. FINDINGS: Stable right jugular hemodialysis catheter. Lightly diminished inspiratory effort compared to prior study. There is increased density at the lung bases suggestive of atelectasis. The possibility of mild infiltrate cannot be ruled out. There is no demonstrated pleural abnormality. Stable cardiomegaly. Normal mediastinum and navi. Normal visualized pulmonary arteries. Normal visualized aortic arch and descending thoracic aorta. Normal visualized thoracic spine. Normal visualized ribs, clavicles, and shoulders. There is no demonstrated abnormality of the visualized soft tissue structures of the upper abdomen. RAD/Chest 1 View (Portable) IMPRESSION: 1. Limited inspiratory effort. Atelectasis versus infiltrate at the lung bases. 2. No other interval change. Electronically Signed: Benito Diaz DO at 17:55 EDT ,
[2022-06-03 17:47] LABS: International Normalized Ratio 1.3; Prothrombin Time (Protime)PT. 15.5 SECONDS (11.7-14.9)
[2022-06-03 17:48] LABS: Partial Thromboplast Time 35.3 Seconds (24.1-36.2)
[2022-06-03 17:54] LABS: ALB/GLOB Ratio 0.8 RATIO (0.9-2.4); AST(SGOT) 27 U/L (15-37); Alanine Aminotransfer ALT/SGPT 18 U/L (16-61); Albumin, Serum 3.1 g/dL (3.2-5.0); Alkaline Phosphatase 84 U/L (45-117); Anion Gap 7 (5-15); BUN 30 mg/dL (7-18); BUN/Creat Ratio 8.9 RATIO (10-20); Calcium,Total 8.3 mg/dL (8.5-10.1); Chloride 96 mmol/L (98-107); Creatinine, Serum 3.37 mg/dL (0.70-1.30); EST Glomerular Filtration Rate 19 mL/min (>60); Est Glom Filt Rate - Afr Amer 23 mL/min (>60); Estimated Creatinine Clearance 16.89 ml/min; Globulin 3.7 g/dL (2.2-4.2); Glucose 107 mg/dL (74-106); Potassium 4.6 mmol/L (3.5-5.1); Protein, Total 6.8 g/dL (6.4-8.2); Sodium Level 131 mmol/L (136-145); Troponin-I HS 36 pg/mL (3.0-78.0)
[2022-06-03 18:00] LABS: Lactic Acid 1.9 mmol/L (0.4-1.9)
[2022-06-03 18:06] LABS: Mucous, Urine 0 SEEN /hpf (<or=2+)
[2022-06-03 18:07] LABS: Color, Urine Yellow (Yellow); Glucose, Dipstick Normal (Normal); Ketone-Dipstick Negative (Negative); Leukocyte Esterase-Dipstick 25 /ul (Negative); Nitrite-Dipstick Negative (Negative); Occult Blood-Urine Negative /ul (Negative); Protein-Dipstick 30 mg/dl (Negative); Urine Clarity Clear (Clear); Urine Urobilinogen 1 mg/dl (Normal)
[2022-06-03 18:22] LABS: Urine Bilirubin Dipstick 3 mg/dL (Negative)
[2022-06-03 18:25] LABS: Bacteria 1+ /hpf (None Seen); Red Blood Cells-Urine 0-5 SEEN /hpf (0-5); Squamous Epithelial Cells - UA 0-5 SEEN /hpf (0-5); White Blood Cells 0-5 SEEN /hpf (0-5)
[2022-06-03 18:26] LABS: Hyaline Cast 10-25 SEEN /lpf (0-5)
[2022-06-03 18:27] LABS: Coarse Granular Cast 5-10 SEEN /lpf (0-5 /lpf)
--- NOTE | 2022-06-03 19:38 | PCM.HP.STD ---
HPI - General General Date of Admission: 06/03/22 Date of Service: 06/03/22 Chief Complaint: Confusion, altered mentation. HPI Narrative The patient is a 76 y/o M w/ PMHx: Chronic atrial fibrillation, CKD stage IV, Chronic macrocytic anemia, Morbid Obesity, COPD, Allergic Rhinitis, GERD, Former tobacco use, Chronic Diastolic CHF, HTN, HLD, Chronic back pain with lumbar stenosis, Diabetes mellitus type II, recently discharged to SNF on 05/28/22 following admission for SAQIB secondary to ANT secondary to hemorrhagic shock secondary to GI bleed requiring HD onset who presents to the [facility] ED on 06/03/22 with history of altered mental status noted on day of presentation noted per his family who is visiting him at the half-way and noted that he was confused and did not seem to be acting consistent with his baseline reporting that the patient thought he was actually outside fishing with normal blood sugar checked there and no recent illnesses nor any fevers or chills. Did report that he had seemed of breath with increased work of breathing and audible expiratory wheezing and that he had been throughout the day. Family noted that he had been on no oxygen but today was placed on 2 L nasal cannula at the facility. Family does report not being happy with their facility and stated several complaints with noted interest in discussing alternate facility with case management/social work. Upon ED presentation patient did report appropriate year and that he was at the hospital. Work-up in the ED included T97.7, heart rate 68, BP 112/53 with ED low 98/51 with most recent repeat 125/58, respiratory rate 14, 96% on 3 L nasal cannula, CBC with WC 8.1, hemoglobin 8.8, platelet 134 without marked shift, coags with INR 1.3, PT 15.5, PTT 35.3, CMP with sodium 131, chloride 96, BUN/creatinine 30/3.37, glucose 107, lactic acid 1.9, unremarkable hepatic profile, urinalysis with evidence of dehydration with elevated specific remedy 1.020, protein 30, negative nitrite, leukocyte esterase 25, 1+ bacteria but no obvious evidence of UTI, chest x-ray with poor inspiratory effort with atelectasis versus infiltrate lung bases, CT of the brain with chronic microvascular ischemic change without any acute intracranial or calvarial abnormality, ED monitor with atrial fibrillation-rate controlled. [facility] Medical History Acute respiratory failure with hypoxia Atrial fibrillation, new onset Chronic back pain Chronic obstructive pulmonary disease COPD (chronic obstructive pulmonary disease) Debility Diabetes Gout Heart failure with preserved ejection fraction Hyperlipidemia Hypertension Hypertension Lumbar canal stenosis Morbid obesity Type 2 diabetes mellitus Home Medications vitamin B complex 1 ea PO DAILY supplement 10/24/16 [History Last Taken 11/16/16 06:00] cyclobenzaprine 10 mg tablet 5 mg PO BID muscle spasm 08/13/18 [History Last Taken Unknown] albuterol 90 mcg/actuation aerosol inhaler 2 mcg inhalation Q4H PRN PRN Shortness Of Breath Or Wheezing 05/08/22 [History Last Taken Unknown] azelastine-fluticasone 137 mcg-50 mcg/spray nasal spray 1 spray intranasal BID allergies 05/08/22 [History Last Taken Unknown] cetirizine 10 mg tablet 10 mg PO DAILY allergies 05/08/22 [History Last Taken Unknown] cholecalciferol (vitamin D3) 50 mcg (2,000 unit) capsule (Vitamin D3) 50 mcg PO DAILY suppliment 05/08/22 [History Last Taken Unknown] ezetimibe 10 mg tablet (Zetia) 10 mg PO DAILY cholesterol 05/08/22 [History Last Taken Unknown] gabapentin 100 mg tablet 100 mg PO TID neuropathy 05/08/22 [History Last Taken Unknown] multivitamin 1 cap PO DAILY suppliement 05/08/22 [History Last Taken Unknown] pravastatin 40 mg tablet 40 mg PO QHS cholesterol 05/08/22 [History Last Taken Unknown] metoprolol tartrate 50 mg tablet 50 mg PO BID #0 tabs 05/27/22 [Rx Last Taken Unknown] pantoprazole 40 mg tablet,delayed release 40 mg PO BID #0 tabs 05/27/22 [Rx Last Taken Unknown] sodium chloride 0.65 % nasal spray aerosol (Deep Sea Nasal) 2 spray NASAL TID PRN PRN NASAL DRYNESS #0 mL 05/27/22 [Rx Last Taken Unknown] sucralfate 1 gram tablet 1 g PO BID #0 tabs 05/27/22 [Rx Last Taken Unknown] insulin glargine-yfgn 100 unit/mL (3 mL) subcutaneous pen 40 unit (0.4 mL) subcut DAILY #0 mL 05/28/22 [Rx Last Taken Unknown] losartan 50 mg tablet 50 mg PO DAILY 06/03/22 [History Last Taken Unknown] spironolactone 25 mg tablet 25 mg PO DAILY 06/03/22 [History Last Taken Unknown] torsemide 20 mg tablet 20 mg PO DAILY 06/03/22 [History Last Taken Unknown] Allergy/AdvReac Type Severity Reaction Status Date / Time grass pollen Allergy Hives Verified 05/16/22 02:49 Latex, Natural Rubber Allergy Unknown Verified 05/16/22 02:49 no significant family history (Patient without marked maternal or paternal family history including HD, DM, CA. Mother passed in her late 90s and father passed in his 60s secondary to accidental poisioning.) Surgical History History of bilateral knee replacement History of cholecystectomy History of elbow surgery Social History (Updated 06/03/22 @ 20:[address] Tonya Torres MD) housing: half-way Smoking Status: Former smoker alcohol intake: never substance use type: does not use ROS ROS Narrative FAMILY Admission Review of Systems: CONSTITUTIONAL: No weight loss, fever, chills, + weakness or fatigue. HEENT: Eyes: No visual loss, blurred vision, double vision or yellow sclerae. Ears, Nose, Throat: No hearing loss, sneezing, congestion, runny nose or sore throat. SKIN: + Chronic BL LE wounds. CARDIOVASCULAR: No chest pain, chest pressure or chest discomfort, palpitations, edema, orthopnea, syncopal events. RESPIRATORY: + shortness of breath, wheezing, no marked cough or sputum, hemoptysis. GASTROINTESTINAL: No anorexia, nausea, vomiting or diarrhea, abdominal pain, melena, BRBPR. GENITOURINARY: No dysuria, frequency, urgency or retention. NEUROLOGICAL: + Confusion, No headache, dizziness, syncope, paralysis, ataxia, numbness or tingling in the extremities, focal weakness, change in bowel or bladder control, seizure. MUSCULOSKELETAL: + muscle, back pain, joint pain or stiffness. HEMATOLOGIC: + anemia, bleeding or bruising. LYMPHATICS: No enlarged nodes. No history of splenectomy. PSYCHIATRIC: No history of depression or anxiety. ENDOCRINOLOGIC: No reports of sweating, cold or heat intolerance. No polyuria or polydipsia. ALLERGIES: + history of rhinitis. Review of Systems ROS Unobtainable: due to encephalopathy Vital Signs Vital Signs Vital Signs: 06/03/22 16:23 06/03/22 16:40 06/03/22 18:05 Temperature 97.7 F L Temperature Source Temporal Pulse Rate 68 65 65 Respiratory Rate 14 16 17 Blood Pressure 112/53 L 98/51 L 125/58 H Blood Pressure Mean 72 66 80 Pulse Ox 97 93 96 Oxygen Delivery Method Room Air Room Air Nasal Cannula Oxygen Flow Rate (L/min) 3 Weight Weight: 349 lb 6.923 oz Body Mass Index (BMI) 54.7 Physical Exam Narrative Physical Examination: General: Awake, alert, oriented to self, year and that he is at [facility] but could not give the correct name of his family members present and from their description certainly has been encephalopathic with confusion, seated upright in the ED bed, increased work of breathing accessory muscle usage as well as expiratory wheezing evident. Skin: Normal color, normal turgor, no icterus, no cyanosis except notable bilateral lower extremity stasis wounds, no periwound erythema, intertrigo. HEENT: AT/NC, EOMI, PERRLA, dry MM, no carotid bruits, difficult to discern JVD secondary to very thickened neck. Lungs: Severely diffusely diminished breath sounds, greater bases, increased work of breathing and accessory muscle usage noted as well as occasional end expiratory wheeze, no obvious rhonchi or rales, evidence of respiratory distress Heart: Regular rate, irregular rhythm; no gallop, rub audible. Abdomen: Soft, morbidly obese, NTTP, difficult to assess distention given significantly morbid habitus, distant mildly hyperactive BS, difficult to discern HSM secondary to habitus Extremities: No cyanosis, no clubbing, see skin, bilateral lower extremity significant pedal to proximal watkins 2-3+ pitting edema which is unfortunately chronic for this patient, lack of left elbow joint chronic. Neurological: Patient awake, alert, oriented as noted, cognitive function not baseline intact; pupils equally reactive to light and accommodation, cranial nerves II-XII grossly normal, moving all 4 extremities although expected limitation left upper extremity given lack of elbow joint, no specific focal deficits, strength severely global decreased secondary to acute presentation and underlying notable comorbidities. Psychiatric: Affect appears fatigued, evidence of respiratory distress is noted, no acute evidence of depressive or anxiety feelings. Results Lab / Micro Data Result Diagrams: 06/03/22 17:15 06/03/22 17:15 Labs: Laboratory Results - last 24 hr 06/03/22 17:15: WBC 8.1, RBC 2.94 L, Hgb 8.8 L, Hct 29.9 L, MCV 101.7 H, MCH 29.9, MCHC 29.4 L, RDW Std Deviation 62.0 H, RDW Coeff of Petty 16.6 H, Plt Count 134 L, MPV 10.7, Immature Gran % (Auto) 0.500, Neut % (Auto) 64.2, Lymph % (Auto) 13.8 L, Irion % (Auto) 17.0 H, Eos % (Auto) 3.6, Baso % (Auto) 0.9, Absolute Neuts (auto) 5.2, Absolute Lymphs (auto) 1.11, Nucleated RBC % 0 06/03/22 17:15: PT 15.5 H, INR 1.3, APTT 35.3 06/03/22 17:15: Sodium 131 L, Potassium 4.6, Chloride 96 L, Carbon Dioxide 28.0, Anion Gap 7, BUN 30 H, Creatinine 3.37 H, Estim Creat Clear Calc 16.89, Est GFR (MDRD) Af Amer 23 L, Est GFR (MDRD) Non-Af 19 L, BUN/Creatinine Ratio 8.9 L, Glucose 107 H, Calcium 8.3 L, Total Bilirubin 0.70, AST 27, ALT 18, Alkaline Phosphatase 84, Troponin I High Sens 36, Total Protein 6.8, Albumin 3.1 L, Globulin 3.7, Albumin/Globulin Ratio 0.8 L 06/03/22 17:15: Lactic Acid 1.9 06/03/22 18:00: Urine Color Yellow, Urine Clarity Clear, Urine pH 5.0, Ur Specific Suring 1.020, Urine Protein 30 H, Urine Glucose (UA) Normal, Urine Ketones Negative, Urine Occult Blood Negative, Urine Nitrite Negative, Urine Bilirubin 3 H, Urine Urobilinogen 1 H, Ur Leukocyte Esterase 25 H, Urine RBC 0-5 SEEN, Urine WBC 0-5 SEEN, Ur Squamous Epith Cells 0-5 SEEN, Urine Bacteria 1+, Hyaline Casts 10-25 SEEN, Coarse Granular Casts 5-10 SEEN, Urine Mucus 0 SEEN Radiology Impression Brain CT 06/03/22 16:48 IMPRESSION: Chronic microvascular ischemic change without acute intracranial or calvarial abnormality. No interval change. Electronically Signed: Benito Diaz DO at 17:57 EDT Reading Location ID and State: [facility] / [place] Tel [phone], Service support , Chest X-Ray 06/03/22 17:31 IMPRESSION: 1. Limited inspiratory effort. Atelectasis versus infiltrate at the lung bases. 2. No other interval change. Electronically Signed: Benito Diaz DO at 17:55 EDT Reading Location ID and State: [facility] / [place] Tel [phone], Service support , Assessment & Plan Assessment/Plan (1) Acute confusion: PLAN: Plan The patient is a 76 y/o M w/ PMHx: Chronic atrial fibrillation, CKD stage IV, Chronic macrocytic anemia, Morbid Obesity, COPD, Allergic Rhinitis, GERD, Former tobacco use, Chronic Diastolic CHF, HTN, HLD, Chronic back pain with lumbar stenosis, Diabetes mellitus type II, recently discharged to SNF on 05/28/22 following admission for SAQIB secondary to ANT secondary to hemorrhagic shock secondary to GI bleed requiring HD onset who presents to the [facility] ED on 06/03/22 with history of altered mental status noted on day of presentation noted per his family who is visiting him at the half-way and noted that he was confused and did not seem to be acting consistent with his baseline reporting that the patient thought he was actually outside fishing with normal blood sugar checked there with evidence of worsened breathing with increased work of breathing and audible expiratory wheezing and that he had been throughout the day. #1. Acute Encephalopathy suspected secondary to Acute Hypoxic Respiratory Failure (Hypoxia, increased RR, accessory muscle usage) secondary to Acute on chronic COPD exacerbation: Will admit to PCU, ABG requested in case retaining which certainly given habitus and history could be the case, we will additionally request ammonia level to be cautious, maintain on oxygen with wean as tolerated to room air, suspect underlying ANTHONY therefore will trial BiPAP, maintain on ATC duonebs, PRN albuterol, IV methylprednisolone initiation, HOB, IS parameters, given patient is afebrile with no marked WC elevation will defer antibiotic therapy pending further evaluation, requested sputum culture, respiratory viral panel, COVID and will plan repeat chest x-ray a.m. to assure no developing pneumonia concurrently. PT/OT/case management consultations for discharge planning. If mental status does not improve with these interventions may need to consider further imaging with MRI of the brain especially given history of chronic A. fib with currently inability be anticoagulated secondary to significant recent GI bleed with hemorrhagic shock. #2. Chronic Kidney Disease Stage IV->ESRD now on HD w/ recent SAQIB admission secondary to ATN secondary to acute Hemorrhagic Shock secondary to GI bleed: Admission BUN/Cr 30/3.37, recent baseline renal function primarily 2.4-2.9 primarily with most recent prior 05/30/2022 with 2.63 however this is notably lower than prior trending from his recent admission secondary to shock with HD performed at that time. Nephrology consulted with planned continued dialysis Thursday. #3. GERD w/ recent GI bleed: We will continue patient home sucralfate and PPI regimen. #4. Chronic BL LE stasis wounds: We will continue wound RN consultation, offloading, positional changes. #5. Chronic atrial fibrillation: Recent presentation with GI bleed, not anticoagulated, holding BB given low normal BP, add back once appropriate. #6. Hypertension: Patient with low BP upon presentation, judiciously hydrating, hold regimen, add once appropriate. #7. Hyperlipidemia: We will continue patient on statin therapy. #8. Diastolic CHF: No obvious evidence of decompensation, given low BP temporarily holding patient home torsemide, spironolactone, losartan and metoprolol regimen but resume once clinically appropriate. We will closely monitor weights and frequently assess for any overload presentation. #9. Diabetes mellitus type II with neuropathy: Hold oral home regimen, continue home insulin regimen, ADA diet, accu checks w/ ISS, continue patient home gabapentin regimen however low threshold to hold if affecting mentation. #10. Chronic macrocytic anemia/AOCD: Admission hemoglobin 8.8, baseline 8-9 more recently but had decreased secondary to recent admission with GI bleed with noted Hgb 05/07/22 and prior normal 13-14 range with sudden downward trending secondary to his recent GI bleed. Will continue to trend. #11. Morbid Obesity: Weight loss and lifestyle changes encouraged. #12. Chronic lumbar back pain with canal stenosis: Encourage positional changes, maintain on fall precautions, therapies consulted as noted. #13. Former tobacco use: Encourage continued tobacco cessation. #14. Allergic rhinitis: Will continue patient home fluticasone and cetirizine regimen. #15. DVT prophylaxis: SCDs, hold chemoprophylaxis secondary to recent admission with GI bleed. #16. CODE status: Patient BOLA is his son Maynor who is present and living will is currently in. Discussed CODE status at length including difference between FULL code, DNR-CCA and DNR-CC status. Following discussions about the differences in these status, requested Full Code status. Advanced Care Planning Face to Face Time: 16 minutes. Charges/Coding Visit Charges Inpatient E&M: 19728 Init Hosp L3 Procedures Hospitalists Procedures: 24687 Advncd Care Plan 30 Min
[2022-06-03 20:30] LABS: Allen Test Positive; Base Excess 2 mmol/L (-2 to +2); Bicarbonate 27.8 mmol/L (22-26); Blood Gas Specimen Type ART; O2 Delivery Device Room Air; PO2 66 mmHG (75-100); SITE R Radial; SO2 91 % (95-99); Total Carbon Dioxide 29 mmol/L; pH 7.34 (7.35-7.45)
[2022-06-03 22:44] LABS: BNP,B-Type NATRIURETIC PEPTIDE 438.2 pg/mL (0-100)
[2022-06-03 22:52] LABS: Procalcitonin 0.27 ng/mL (0.00-0.09)
[2022-06-03] MEDS: Menthol/Lanolin/Calamine/Znox 113 GM Tube 1 APPLIC TOPICAL (23:15)
[2022-06-03] MEDS: Azelastine HCl NASAL.SRY 1 SPRAY NASAL (23:16)
[2022-06-03] MEDS: Fluticasone 0.05% 1 SPRAY NASAL.SRY NASAL (23:16)
[2022-06-03] MEDS: MethylPREDNISolone 125 MG/2 ML Vial IV (23:17)
[2022-06-03] MEDS: Pravastatin 40 MG Tablet PO (23:18)
[2022-06-03] MEDS: Sucralfate 1 GM Tablet PO (23:18)
[2022-06-03] MEDS: Pantoprazole Sodium 40 MG Tablet PO (23:18)
[2022-06-03] MEDS: Gabapentin 100 MG Capsule PO (23:18)
[2022-06-03] MEDS: QUEtiapine 25 MG Tablet 12.5 MG PO (23:23)
[2022-06-03] MEDS: Ipratropium/Albuterol Sulfate 3 ML AMPUL.NEB INHALATION (23:43)
[2022-06-04] VITALS (17 sets, daily range): BP systolic 132–167; BP diastolic 50–88; PULSE 71–99; RESP 12–30; TEMP 36–36.6; O2SAT 93–100
[2022-06-04 00:01] LABS: Bedside Glucose 111 mg/dL (74-106)
--- NOTE | 2022-06-04 00:08 | NURSING ---
Pt removed bipap off, pt was hallucinating saying that there is a woman in front of him. This RN tries to put NC back on, pt trying to bite and grab staff. Will notify dr regarding the situation. Nursing aid in the room w/ pt at this time.
[2022-06-04] MEDS: Haloperidol Lactate 5 MG/ML Vial IV (00:37)
--- NOTE | 2022-06-04 04:49 | NURSING ---
pt hasnt urinated overnight, bladder scanned him for 37cc at this time.
[2022-06-04] MEDS: Gabapentin 100 MG Capsule PO (06:24)
[2022-06-04 06:25] LABS: Absolute Lymphocyte Count 0.23 X10^3/uL (0.83-4.51); Absolute Neutrophil Count 5.9 X10^3/uL (2.0-7.7); Basophil# 0.02 X10^3/uL; Basophil% 0.3 % (0-1); Eosinophil# 0.02 X10^3/uL; Eosinophils% 0.3 % (0-5); Hematocrit 29.8 % (40-54); Hemoglobin 8.8 g/dL (13.0-16.5); Lymphocyte # 0.23 X10^3/ul (0.83-4.51); Lymphocyte % 3.7 % (19-41); Mean Corp Hgb Conc 29.5 g/dL (32-36); Mean Corpuscular Volume 101.7 fL (80-94); Mean Platelet Vol. 10.6 fl (6.2-12.0); Monocyte# 0.09 X10^3/uL; Monocyte% 1.4 % (0-10); NRBC Flagged by Analyzer 0 % (0-5); Neutrophil # 5.87 X10^3/uL (2.7-7.7); Neutrophil % 93.8 % (47-70); POSITIVE DIFFERENTIAL YES; Platelet Count 125 K/mm3 (150-450); RBC Distribution Width CV 16.3 % (11.6-14.6); RBC Distribution Width SD 60.8 fl (35.1-43.9); Red Blood Count 2.93 M/mm3 (4.6-6.2); White Blood Count 6.3 K/mm3 (4.4-11.0)
[2022-06-04] MEDS: Sucralfate 1 GM Tablet PO (06:25)
[2022-06-04] MEDS: Insulin Lispro 100 UNIT/ML INSULN.PEN SC ×4 (06:25→22:24)
[2022-06-04 06:26] LABS: Differential Indicated SCAN CRITERIA MET
[2022-06-04 06:41] LABS: Anisocytosis 2+; Macrocytosis 2+
[2022-06-04 06:58] LABS: ALB/GLOB Ratio 0.9 RATIO (0.9-2.4); AST(SGOT) 28 U/L (15-37); Alanine Aminotransfer ALT/SGPT 19 U/L (16-61); Alkaline Phosphatase 81 U/L (45-117); Anion Gap 7 (5-15); BUN 34 mg/dL (7-18); BUN/Creat Ratio 9.1 RATIO (10-20); Calcium,Total 8.5 mg/dL (8.5-10.1); Chloride 95 mmol/L (98-107); Creatinine, Serum 3.75 mg/dL (0.70-1.30); EST Glomerular Filtration Rate 17 mL/min (>60); Est Glom Filt Rate - Afr Amer 20 mL/min (>60); Estimated Creatinine Clearance 15.18 ml/min; Globulin 3.4 g/dL (2.2-4.2); Glucose 193 mg/dL (74-106); Potassium 4.7 mmol/L (3.5-5.1); Protein, Total 6.4 g/dL (6.4-8.2); Sodium Level 129 mmol/L (136-145)
[2022-06-04 07:15] LABS: Bedside Glucose 187 mg/dL (74-106)
[2022-06-04] MEDS: Ipratropium/Albuterol Sulfate 3 ML AMPUL.NEB INHALATION ×3 (07:32→18:34)
[2022-06-04] MEDS: Alteplase 2 MG/2 ML Vial IV ×2 (08:50)
--- NOTE | 2022-06-04 08:55 | CON.PCM.RE_ITS ---
Assessment & Plan Assessment/Plan (1) Acute confusion: (2) SAQIB (acute kidney injury): (3) Chronic kidney disease, stage IV (severe): (4) Anemia: PLAN: Plan -Patient has known history of dialysis requiring acute kidney injury secondary to ATN. His first dialysis was on May 17, 2022. Patient has tunneled h emodialysis catheter for dialysis. Patient has a known history of chronic kidney disease stage IV with baseline creatinine ranging around 2.3 mg/dL. 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 At this time there has been no noted renal recovery, creatinine today is 3.75 mg/dL, patient is hypervolemic, dry weight has not been established yet. Once volume status improves we will likely see a more true picture of renal function, as current creatinine trends may be diluted as patient is hypervolemic. We will plan for dialysis today over 4 hours and attempt fluid removal as patient/blood pressure tolerates. No heparin with dialysis today. -Altered mental status: WBC normal. UA showed improvement from previous UA. Brain CT no acute pathology. We will obtain blood cultures from tunneled HD catheter today to rule out catheter related infection that could be contributing to AMS. Patient is on neurontin but this is not a new med for him. If mental status does not improve would recommend to decrease dose or stop altogether. -Blood pressures acceptable, patient is not on any antihypertensives at this time. - patient has history of chronic anemia and recent history of GI bleed. Hgb trends acceptable. On PPI. -Exacerbation COPD: receiving IV steroids and breathing treatments. Chest x-ray reviewed, atelectasis versus infiltrate at lung bases -Further orders forthcoming as hospitalization evolves, thank you for allowing us to participate in the care of Mr. Vazquez. HPI Consult Data Date of Consult: 06/04/22 HPI Narrative HPI Narrative: LUCRECIA VAZQUEZ, is a 76 M who was brought to the emergency room from the [facility] for evaluation for confusion. Patient was admitted for acute encephalopathy suspected to be secondary to acute hypoxic respiratory failure secondary to acute on chronic COPD exacerbation versus other reasons. Patient has past medical history significant for hypertension, chronic diastolic heart failure, chronic kidney disease stage IV, COPD, morbid obesity. We were consulted for acute kidney injury. Patient is known to our group from prior hospitalization just a few weeks ago as patient was admitted to the hospital on 05/16/2022 for evaluation of hematochezia. Unfortunately the patient developed acute kidney injury from ATN from hemorrhagic shock and was started on hemodialysis May 17, 2022 because of worsening renal function and hyperkalemia (potassium 7.8). During that hospitalization there was no noted renal recovery, patient had tunneled hemodialysis catheter placed and arrangements were made for him to dialyze at [facility] on a Thursday schedule. Patient last dialyzed on Thursday at the kidney center. Patient's family is at bedside. Patient is confused. Information gathered from the chart. [facility] Medical History Acute respiratory failure with hypoxia Atrial fibrillation, new onset Chronic back pain Chronic obstructive pulmonary disease COPD (chronic obstructive pulmonary disease) Debility Diabetes Gout Heart failure with preserved ejection fraction Hyperlipidemia Hypertension Hypertension Lumbar canal stenosis Morbid obesity Type 2 diabetes mellitus Home Medications vitamin B complex 1 ea PO DAILY supplement 10/24/16 [History Last Taken 11/16/16 06:00] cyclobenzaprine 10 mg tablet 5 mg PO BID muscle spasm 08/13/18 [History Last Taken Unknown] albuterol 90 mcg/actuation aerosol inhaler 2 mcg inhalation Q4H PRN PRN Shortness Of Breath Or Wheezing 05/08/22 [History Last Taken Unknown] azelastine-fluticasone 137 mcg-50 mcg/spray nasal spray 1 spray intranasal BID allergies 05/08/22 [History Last Taken Unknown] cetirizine 10 mg tablet 10 mg PO DAILY allergies 05/08/22 [History Last Taken Unknown] cholecalciferol (vitamin D3) 50 mcg (2,000 unit) capsule (Vitamin D3) 50 mcg PO DAILY suppliment 05/08/22 [History Last Taken Unknown] ezetimibe 10 mg tablet (Zetia) 10 mg PO DAILY cholesterol 05/08/22 [History Last Taken Unknown] gabapentin 100 mg tablet 100 mg PO TID neuropathy 05/08/22 [History Last Taken Unknown] multivitamin 1 cap PO DAILY suppliement 05/08/22 [History Last Taken Unknown] pravastatin 40 mg tablet 40 mg PO QHS cholesterol 05/08/22 [History Last Taken Unknown] metoprolol tartrate 50 mg tablet 50 mg PO BID #0 tabs 05/27/22 [Rx Last Taken Unknown] pantoprazole 40 mg tablet,delayed release 40 mg PO BID #0 tabs 05/27/22 [Rx Last Taken Unknown] sodium chloride 0.65 % nasal spray aerosol (Deep Sea Nasal) 2 spray NASAL TID PRN PRN NASAL DRYNESS #0 mL 05/27/22 [Rx Last Taken Unknown] sucralfate 1 gram tablet 1 g PO BID #0 tabs 05/27/22 [Rx Last Taken Unknown] insulin glargine-yfgn 100 unit/mL (3 mL) subcutaneous pen 40 unit (0.4 mL) subcut DAILY #0 mL 05/28/22 [Rx Last Taken Unknown] losartan 50 mg tablet 50 mg PO DAILY 06/03/22 [History Last Taken Unknown] spironolactone 25 mg tablet 25 mg PO DAILY 06/03/22 [History Last Taken Unknown] torsemide 20 mg tablet 20 mg PO DAILY 06/03/22 [History Last Taken Unknown] Allergy/AdvReac Type Severity Reaction Status Date / Time grass pollen Allergy Hives Verified 05/16/22 02:49 Latex, Natural Rubber Allergy Unknown Verified 05/16/22 02:49 Family History no significant family his Surgical History History of bilateral knee replacement History of cholecystectomy History of elbow surgery Social History (Updated 06/03/22 @ 20:[address] Tonya Torres MD) housing: [facility] Smoking Status: Former smoker alcohol intake: never substance use type: does not use ROS ROS Narrative unable to complete Physical Exam Narrative Const: not oriented. No apparent distress HEENT: oral mucosa moist Cardio: S1, S2, RRR GI: Abdomen soft, +BS x4 quadrants. Extremities: edema to b/l thighs and legs. Tunneled HD catheter C/D/I Lab / Micro Data Result Diagrams: 06/04/22 05:50 06/04/22 05:50 Labs: Laboratory Results - last 24 hr 06/03/22 17:15: WBC 8.1, RBC 2.94 L, Hgb 8.8 L, Hct 29.9 L, MCV 101.7 H, MCH 29.9, MCHC 29.4 L, RDW Std Deviation 62.0 H, RDW Coeff of Petty 16.6 H, Plt Count 134 L, MPV 10.7, Immature Gran % (Auto) 0.500, Neut % (Auto) 64.2, Lymph % (Auto) 13.8 L, Mcpherson % (Auto) 17.0 H, Eos % (Auto) 3.6, Baso % (Auto) 0.9, Absolute Neuts (auto) 5.2, Absolute Lymphs (auto) 1.11, Nucleated RBC % 0 06/03/22 17:15: PT 15.5 H, INR 1.3, APTT 35.3 06/03/22 17:15: Sodium 131 L, Potassium 4.6, Chloride 96 L, Carbon Dioxide 28.0, Anion Gap 7, BUN 30 H, Creatinine 3.37 H, Estim Creat Clear Calc 16.89, Est GFR (MDRD) Af Amer 23 L, Est GFR (MDRD) Non-Af 19 L, BUN/Creatinine Ratio 8.9 L, Glucose 107 H, Calcium 8.3 L, Total Bilirubin 0.70, AST 27, ALT 18, Alkaline Phosphatase 84, Troponin I High Sens 36, Total Protein 6.8, Albumin 3.1 L, Globulin 3.7, Albumin/Globulin Ratio 0.8 L 06/03/22 17:15: Lactic Acid 1.9 06/03/22 18:00: Urine Color Yellow, Urine Clarity Clear, Urine pH 5.0, Ur Specific [place] 1.020, Urine Protein 30 H, Urine Glucose (UA) Normal, Urine Ketones Negative, Urine Occult Blood Negative, Urine Nitrite Negative, Urine Bilirubin 3 H, Urine Urobilinogen 1 H, Ur Leukocyte Esterase 25 H, Urine RBC 0-5 SEEN, Urine WBC 0-5 SEEN, Ur Squamous Epith Cells 0-5 SEEN, Urine Bacteria 1+, Hyaline Casts 10-25 SEEN, Coarse Granular Casts 5-10 SEEN, Urine Mucus 0 SEEN 06/03/22 20:25: COVID-19 (ESTUARDO) Not Detected 06/03/22 22:00: Ammonia 20.0, B-Natriuretic Peptide 438.2 H 06/03/22 22:00: Procalcitonin 0.27 H 06/03/22 23:07: POC Glucose 111 H 06/04/22 05:50: WBC 6.3, RBC 2.93 L, Hgb 8.8 L, Hct 29.8 L, MCV 101.7 H, MCH 30.0, MCHC 29.5 L, RDW Std Deviation 60.8 H, RDW Coeff of Petty 16.3 H, Plt Count 125 L, MPV 10.6, Immature Gran % (Auto) 0.500, Neut % (Auto) 93.8 H, Lymph % (Auto) 3.7 L, Mcpherson % (Auto) 1.4, Eos % (Auto) 0.3, Baso % (Auto) 0.3, Absolute Neuts (auto) 5.9, Absolute Lymphs (auto) 0.23 L, Nucleated RBC % 0, Anisocytosis 2+, Macrocytosis 2+ 06/04/22 05:50: Sodium 129 L, Potassium 4.7, Chloride 95 L, Carbon Dioxide 27.0, Anion Gap 7, BUN 34 H, Creatinine 3.75 H, Estim Creat Clear Calc 15.18, Est GFR (MDRD) Af Amer 20 L, Est GFR (MDRD) Non-Af 17 L, BUN/Creatinine Ratio 9.1 L, Glucose 193 H, Calcium 8.5, Total Bilirubin 0.80, AST 28, ALT 19, Alkaline Phosphatase 81, Total Protein 6.4, Albumin 3.0 L, Globulin 3.4, Albumin/Globulin Ratio 0.9 06/04/22 06:19: POC Glucose 187 H Micro: Microbiology 06/03/22 18:00 Urine, Random Legionella Antigen - Final 06/03/22 18:00 Urine, Random Streptococcus pneumoniae Antigen (M - Final 06/03/22 20:25 Mucosa - Nasopharyngeal Respiratory Panel (PCR) - Final ABG Data ABG results: ABG 06/03/22 20:19 Specimen Type ART Sample Site R Radial pH 7.34 L Bicarbonate Actual 27.8 H Total CO2 29 Base Excess 2 O2 Saturation 91 L ABG pCO2 51.0 H ABG pO2 66 L Vahid Test Positive O2 Delivery Device Room Air Radiology Impression Brain CT 06/03/22 16:48 IMPRESSION: Chronic microvascular ischemic change without acute intracranial or calvarial abnormality. No interval change. Electronically Signed: Benito Diaz DO at 17:57 EDT Reading Location ID and State: [facility] / [place] Tel [phone], Service support , Chest X-Ray 06/03/22 17:31 IMPRESSION: 1. Limited inspiratory effort. Atelectasis versus infiltrate at the lung bases. 2. No other interval change. Electronically Signed: Benito Diaz DO at 17:55 EDT Reading Location ID and State: [address] [place] [address] Tel [phone], Service support ,
[2022-06-04] MEDS: Menthol/Lanolin/Calamine/Znox 113 GM Tube 1 APPLIC TOPICAL ×4 (09:50→22:25)
[2022-06-04] MEDS: Fluticasone 0.05% 1 SPRAY NASAL.SRY NASAL (09:51)
[2022-06-04] MEDS: Azelastine HCl NASAL.SRY 1 SPRAY NASAL (09:52)
--- NOTE | 2022-06-04 10:20 | CASEMGMT ---
Discharge Internet Cafe Manager Holley Malagon/zev Remotely Operated Vehicle called [facility] in [place], [place]. Facility does not currently have transportation to be able to take patient to Dialysis. Holley Hampton Discharge Internet Cafe Manager
--- NOTE | 2022-06-04 10:33 | CASEMGMT ---
DARIO spoke with patient's son, Maynor and ez Morin. Both absolutely do not want patient to return to [facility]. They were appalled at the care patient received. DARIO did provide them with the senior living care [facility]. DARIO printed a list of facilities that are in network with patient's insurance from [facility]'s website. Their first choice would be [facility]. DARIO explained that facility is not in network, but SW can check. Sometimes insurance will do a one time contract with out of network facilities. Their next choice would be [facility] in [place] which is in network. DARIO let them know SW will work on this and get back with them. Holley d/c planning specialist contacted [facility] and they do not have transportation for patients. Holley was also going to contact the 2 facilities in [place] as they were the next closest to check on transportation. DARIO called [facility] and asked about one time contracts. DARIO was given the email for the saundra dept. DARIO went an email regarding approval of out of network facilities. DARIO also sent out emails to [facility] and [facility] to see if they are able to transport patients to dialysis 3 days a week. DARIO called [facility] and spoke with Holley regarding transportation to dialysis. Holley said she will check with their rubber flap tuber machine operator and call DARIO back. DARIO called [facility] and they cannot transport patients to [place]. DARIO will continue to make phone calls to facilities. Simi MOTA
--- NOTE | 2022-06-04 10:39 | MRI_ITS ---
STUDY: MRI BRAIN WITHOUT CONTRAST REASON FOR EXAM: Male, 76 years old. Encephalopathy TECHNIQUE: Standardized multiplanar fat and water weighted pulse sequences were obtained. COMPARISON: None. FINDINGS: Moderate atrophy and mild nonspecific periventricular white matter hyperintensity without mass effect or restricted diffusion.. This appears to be slightly more pronounced in the parieto-occipital regions raising question of PRES Normal bilateral basal ganglia. Normal thalami. There is no extra-axial fluid accumulation. Normal flow voids within the major intracranial circulation suggesting patency by spin echo criteria. Normal sella turcica, pituitary gland, infundibular stalk, optic chiasm and hypothalamus. Normal tectal plate and pineal gland. Normal midbrain, fatmata and medulla. Diffuse cerebellar atrophy.. Normal basal cisterns. Normal bilateral temporal bones. Normal bilateral internal auditory canals. No demonstrated orbital abnormality, within the constraints of a routine brain study. Normal visualized paranasal sinuses. Normal calvarium and skull base. Normal visualized soft tissue structures. Normal visualized upper cervical spine. MRI/Brain without Contrast IMPRESSION: Moderate atrophy and mild nonspecific periventricular white matter hyperintensity without mass effect or restricted diffusion. This likely reflects chronic ischemic changes secondary to small vessel disease in patient of this age however other etiologies including nonspecific PRES , demyelinating disease, or inflammatory disease not entirely excluded. Clinical correlation recommended Electronically Signed: Gregory Doyle MD at 17:50 EDT ,
--- NOTE | 2022-06-04 10:45 | CON.PCM.SX_ITS ---
Assessment & Plan Assessment/Plan (1) Encounter for dialysis catheter care: (2) Chronic kidney disease, stage IV (severe): (3) Acute confusion: PLAN: Plan Will plan to remove the right IJ tunneled dialysis catheter at bedside. Patient will be scheduled for right possible left tunneled dialysis catheter in the OR tomorrow 7:30 AM. Patient is also scheduled to get an MRI of the head today as well per primary due to new confusion and twitching. Dulce Maria Kathleen M.D. Pager: [phone] [facility] [address] [place] [address], Outpatient Pavilion, [address] [place] [address] Office: [phone] HPI Consult Data Date of Consult: 06/04/22 HPI Narrative Reason for Consultation: Malfunction of tunneled dialysis catheter HPI Narrative: LUCRECIA VAZQUEZ, is a 76 M who admitted to the hospital due to confusion. Patient has been having issues with his tunneled dialysis catheter previously and today he was not able to run even after Cathflo, but the Cathflo did go through but still unable to run for dialysis. Patient's creatinine is about his normal. Unsure the exact etiology of his new confusion or twitching especially in his lower extremities?primary team is getting MRI of the head. Patient is unable to give me history due to the new confusion. Patient did deny being confused, but stated that his son's thought differently. [facility] Medical History Acute respiratory failure with hypoxia Atrial fibrillation, new onset Chronic back pain Chronic obstructive pulmonary disease COPD (chronic obstructive pulmonary disease) Debility Diabetes Gout Heart failure with preserved ejection fraction Hyperlipidemia Hypertension Hypertension Lumbar canal stenosis Morbid obesity Type 2 diabetes mellitus Home Medications vitamin B complex 1 ea PO DAILY supplement 10/24/16 [History Last Taken 11/16/16 06:00] cyclobenzaprine 10 mg tablet 5 mg PO BID muscle spasm 08/13/18 [History Last Taken Unknown] albuterol 90 mcg/actuation aerosol inhaler 2 mcg inhalation Q4H PRN PRN Shortness Of Breath Or Wheezing 05/08/22 [History Last Taken Unknown] azelastine-fluticasone 137 mcg-50 mcg/spray nasal spray 1 spray intranasal BID allergies 05/08/22 [History Last Taken Unknown] cetirizine 10 mg tablet 10 mg PO DAILY allergies 05/08/22 [History Last Taken Un known] cholecalciferol (vitamin D3) 50 mcg (2,000 unit) capsule (Vitamin D3) 50 mcg PO DAILY suppliment 05/08/22 [History Last Taken Unknown] ezetimibe 10 mg tablet (Zetia) 10 mg PO DAILY cholesterol 05/08/22 [History Last Taken Unknown] gabapentin 100 mg tablet 100 mg PO TID neuropathy 05/08/22 [History Last Taken Unknown] multivitamin 1 cap PO DAILY suppliement 05/08/22 [History Last Taken Unknown] pravastatin 40 mg tablet 40 mg PO QHS cholesterol 05/08/22 [History Last Taken Unknown] metoprolol tartrate 50 mg tablet 50 mg PO BID #0 tabs 05/27/22 [Rx Last Taken Unknown] pantoprazole 40 mg tablet,delayed release 40 mg PO BID #0 tabs 05/27/22 [Rx Last Taken Unknown] sodium chloride 0.65 % nasal spray aerosol (Deep Sea Nasal) 2 spray NASAL TID PRN PRN NASAL DRYNESS #0 mL 05/27/22 [Rx Last Taken Unknown] sucralfate 1 gram tablet 1 g PO BID #0 tabs 05/27/22 [Rx Last Taken Unknown] insulin glargine-yfgn 100 unit/mL (3 mL) subcutaneous pen 40 unit (0.4 mL) subcut DAILY #0 mL 05/28/22 [Rx Last Taken Unknown] losartan 50 mg tablet 50 mg PO DAILY 06/03/22 [History Last Taken Unknown] spironolactone 25 mg tablet 25 mg PO DAILY 06/03/22 [History Last Taken Unknown] torsemide 20 mg tablet 20 mg PO DAILY 06/03/22 [History Last Taken Unknown] Allergy/AdvReac Type Severity Reaction Status Date / Time grass pollen Allergy Hives Verified 05/16/22 02:49 Latex, Natural Rubber Allergy Unknown Verified 05/16/22 02:49 Family History no significant family his Surgical History History of bilateral knee replacement History of cholecystectomy History of elbow surgery Social History (Updated 06/03/22 @ 20:[address] Tonya Torres MD) housing: [facility] Smoking Status: Former smoker alcohol intake: never substance use type: does not use ROS Review of Systems ROS Unobtainable: due to mental status Cardiovascular Cardiovascular: Denies chest pain Gastrointestinal Gastrointestinal: Denies abdominal pain, nausea or vomiting Neurologic Neurologic: Denies dizziness Physical Exam Const oriented x3 and no apparent distress HEENT normocephalic and head/scalp atraumatic Neck Neck Narrative: Right tunneled IJ dialysis catheter permanent sutures in the the right lower neck?removed at bedside along with the tunneled dialysis catheter. Chest Chest Narrative: Right tunneled dialysis catheter in place no signs of infection Resp normal respiratory effort Cardio regular rate GI soft to palpation and non-tender; Negative for non-distended Palpation: Negative for guarding Extremity General Extremity: Negative for calf tenderness Skin no jaundice Neuro Neuro Narrative: Occasional twitches of the lower extremities Sensorium / Orientation: oriented to person, oriented to place and oriented to time Psych Mood & Affect: flat affect Lab / Micro Data Result Diagrams: 06/04/22 05:50 06/04/22 05:50 Labs: Laboratory Results - last 24 hr 06/03/22 17:15: WBC 8.1, RBC 2.94 L, Hgb 8.8 L, Hct 29.9 L, MCV 101.7 H, MCH 29.9, MCHC 29.4 L, RDW Std Deviation 62.0 H, RDW Coeff of Petty 16.6 H, Plt Count 134 L, MPV 10.7, Immature Gran % (Auto) 0.500, Neut % (Auto) 64.2, Lymph % (Auto) 13.8 L, [place] % (Auto) 17.0 H, Eos % (Auto) 3.6, Baso % (Auto) 0.9, Absolute Neuts (auto) 5.2, Absolute Lymphs (auto) 1.11, Nucleated RBC % 0 06/03/22 17:15: PT 15.5 H, INR 1.3, APTT 35.3 06/03/22 17:15: Sodium 131 L, Potassium 4.6, Chloride 96 L, Carbon Dioxide 28.0, Anion Gap 7, BUN 30 H, Creatinine 3.37 H, Estim Creat Clear Calc 16.89, Est GFR (MDRD) Af Amer 23 L, Est GFR (MDRD) Non-Af 19 L, BUN/Creatinine Ratio 8.9 L, Glucose 107 H, Calcium 8.3 L, Total Bilirubin 0.70, AST 27, ALT 18, Alkaline Phosphatase 84, Troponin I High Sens 36, Total Protein 6.8, Albumin 3.1 L, Globulin 3.7, Albumin/Globulin Ratio 0.8 L 06/03/22 17:15: Lactic Acid 1.9 06/03/22 18:00: Urine Color Yellow, Urine Clarity Clear, Urine pH 5.0, Ur Specific [place] 1.020, Urine Protein 30 H, Urine Glucose (UA) Normal, Urine Ketones Negative, Urine Occult Blood Negative, Urine Nitrite Negative, Urine Bilirubin 3 H, Urine Urobilinogen 1 H, Ur Leukocyte Esterase 25 H, Urine RBC 0-5 SEEN, Urine WBC 0-5 SEEN, Ur Squamous Epith Cells 0-5 SEEN, Urine Bacteria 1+, Hyaline Casts 10-25 SEEN, Coarse Granular Casts 5-10 SEEN, Urine Mucus 0 SEEN 06/03/22 20:25: COVID-19 (ESTUARDO) Not Detected 06/03/22 22:00: Ammonia 20.0, B-Natriuretic Peptide 438.2 H 06/03/22 22:00: Procalcitonin 0.27 H 06/03/22 23:07: POC Glucose 111 H 06/04/22 05:50: WBC 6.3, RBC 2.93 L, Hgb 8.8 L, Hct 29.8 L, MCV 101.7 H, MCH 30.0, MCHC 29.5 L, RDW Std Deviation 60.8 H, RDW Coeff of Petty 16.3 H, Plt Count 125 L, MPV 10.6, Immature Gran % (Auto) 0.500, Neut % (Auto) 93.8 H, Lymph % (Auto) 3.7 L, [place] % (Auto) 1.4, Eos % (Auto) 0.3, Baso % (Auto) 0.3, Absolute Neuts (auto) 5.9, Absolute Lymphs (auto) 0.23 L, Nucleated RBC % 0, Anisocytosis 2+, Macrocytosis 2+ 06/04/22 05:50: Sodium 129 L, Potassium 4.7, Chloride 95 L, Carbon Dioxide 27.0, Anion Gap 7, BUN 34 H, Creatinine 3.75 H, Estim Creat Clear Calc 15.18, Est GFR (MDRD) Af Amer 20 L, Est GFR (MDRD) Non-Af 17 L, BUN/Creatinine Ratio 9.1 L, Glucose 193 H, Calcium 8.5, Total Bilirubin 0.80, AST 28, ALT 19, Alkaline Phosphatase 81, Total Protein 6.4, Albumin 3.0 L, Globulin 3.4, Albumin/Globulin Ratio 0.9 06/04/22 06:19: POC Glucose 187 H Micro: Microbiology 06/03/22 18:00 Urine, Random Legionella Antigen - Final 06/03/22 18:00 Urine, Random Streptococcus pneumoniae Antigen (M - Final 06/03/22 20:25 Mucosa - Nasopharyngeal Respiratory Panel (PCR) - Final ABG Data ABG results: ABG 06/03/22 20:19 Specimen Type ART Sample Site R Radial pH 7.34 L Bicarbonate Actual 27.8 H Total CO2 29 Base Excess 2 O2 Saturation 91 L ABG pCO2 51.0 H ABG pO2 66 L Vahid Test Positive O2 Delivery Device Room Air Radiology Impression Brain CT 06/03/22 16:48 IMPRESSION: Chronic microvascular ischemic change without acute intracranial or calvarial abnormality. No interval change. Electronically Signed: Benito Diaz DO at 17:57 EDT Reading Location ID and State: [facility] / [place] Tel [phone], Service support , Chest X-Ray 06/03/22 17:31 IMPRESSION: 1. Limited inspiratory effort. Atelectasis versus infiltrate at the lung bases. 2. No other interval change. Electronically Signed: Bentio Diaz DO at 17:55 EDT Reading Location ID and State: [facility] [facility] / [place] Tel [phone], Service support , Charges/Coding Visit Charges Inpatient E&M: 06467 Init Hosp L3
--- NOTE | 2022-06-04 11:14 | CASEMGMT ---
DARIO did call [facility] and made referral. Rozina will review referral and talk with [facility]. DARIO emailed referral. Simi Samuels [employer]
--- NOTE | 2022-06-04 11:18 | DIALYSIS ---
Cathflo Activase was instilled and allowed to dwell for 1 hour prior to treatment d/t no pull from either port. Both ports had good pull/push after cathflo. Treatment was started and then discontinued not long after starting treatment d/t poor flow from catheter. Tyesha Mendieta NP is aware. Report was given to JONATHON Lazcano See treatment sheet for more details.
--- NOTE | 2022-06-04 11:18 | WOUNDNOTE ---
wound photo: right lower leg
--- NOTE | 2022-06-04 11:19 | WOUNDNOTE ---
wound photo: left lower leg
--- NOTE | 2022-06-04 11:20 | WOUNDNOTE ---
wound photo: right foot
--- NOTE | 2022-06-04 11:49 | PCM.OPRPT ---
Report of Operation Date of Procedure: 06/04/22 Pre-Operative Diagnosis: Dysfunctional right IJ dialysis catheter Post-Operative Diagnosis: Same Surgery/Procedure Performed:: Removal of right IJ dialysis catheter at bedside Surgeon: Dulce Maria Kathleen Type of Anesthesia: Local Estimated Blood Loss (mL): minimal Description of Procedure: Right IJ tunneled dialysis catheter prepped and draped in usual sterile fashion with Betadine after consent obtained per family. Local anesthesia 1% lidocaine was applied at the catheter cuff location. A counterincision was made with a 11 blade scalpel at the location of the cuff. Hemostat was used to disconnect the cuff from the subcutaneous tissue. Previous permanent sutures were removed at the right IJ neck incision and at the exit site of the tunneled catheter. Tunneled catheter was removed with gentle traction as pressure was held over the IJ site for 15 minutes. Hemostasis was achieved. Due to patient's confusion did send tip of catheter for Gram stain--no obvious signs of infection. Dressings were placed over the exit site and counterincision site as well as the right IJ. Patient tolerated procedure well. Complications none
[2022-06-04] MEDS: Insulin Glargine-YFGN 100 UNIT/ML Pen 40 UNIT SC (12:21)
--- NOTE | 2022-06-04 12:21 | PN.HOSP_ITS ---
Documented by User: Simi Connelly NP-C 06/04/22 12:37 Subjective Subjective Patient seen and examined. Patient lying in bed no distress noted. Patient obviously confused and talking about odd things. Patient's sons at bedside concerned with dad's mental status. Discussed plan of care with sons to which they were agreeable. Objective Data Objective Data Vital Signs: Vital Signs Temp Pulse Resp BP Pulse Ox O2 Del Method O2 Flow Rate 97.0 F L 92 18 167/50 H 100 Nasal Cannula 2 06/04/22 08:24 06/04/22 08:24 06/04/22 08:24 06/04/22 08:24 06/04/22 08:24 06/04/22 10:00 06/04/22 10:00 FiO2 35 06/03/22 23:46 Oxygen Flow Rate (L/min) 2 Oxygen Delivery Method Nasal Cannula Weight: 345 lb 7.43 oz Body Mass Index (BMI) 53.4 Intake & Output: Intake and Output for Last 24 Hours 06/02/22 06/03/22 06/04/22 23:59 23:59 23:59 Intake Total 120 / 120 50 / 50 Output Total 0 / 0 Balance 120 / 120 50 / 50 Lab / Micro Data Result Diagrams: 06/04/22 05:50 06/04/22 05:50 Labs: Laboratory Results - last 24 hr 06/03/22 17:15: WBC 8.1, RBC 2.94 L, Hgb 8.8 L, Hct 29.9 L, MCV 101.7 H, MCH 29.9, MCHC 29.4 L, RDW Std Deviation 62.0 H, RDW Coeff of Petty 16.6 H, Plt Count 134 L, MPV 10.7, Immature Gran % (Auto) 0.500, Neut % (Auto) 64.2, Lymph % (Auto) 13.8 L, Jewell % (Auto) 17.0 H, Eos % (Auto) 3.6, Baso % (Auto) 0.9, Absolute Neuts (auto) 5.2, Absolute Lymphs (auto) 1.11, Nucleated RBC % 0 06/03/22 17:15: PT 15.5 H, INR 1.3, APTT 35.3 06/03/22 17:15: Sodium 131 L, Potassium 4.6, Chloride 96 L, Carbon Dioxide 28.0, Anion Gap 7, BUN 30 H, Creatinine 3.37 H, Estim Creat Clear Calc 16.89, Est GFR (MDRD) Af Amer 23 L, Est GFR (MDRD) Non-Af 19 L, BUN/Creatinine Ratio 8.9 L, Glucose 107 H, Calcium 8.3 L, Total Bilirubin 0.70, AST 27, ALT 18, Alkaline Phosphatase 84, Troponin I High Sens 36, Total Protein 6.8, Albumin 3.1 L, Globulin 3.7, Albumin/Globulin Ratio 0.8 L 06/03/22 17:15: Lactic Acid 1.9 06/03/22 18:00: Urine Color Yellow, Urine Clarity Clear, Urine pH 5.0, Ur Specific [place] 1.020, Urine Protein 30 H, Urine Glucose (UA) Normal, Urine Ketones Negative, Urine Occult Blood Negative, Urine Nitrite Negative, Urine B ilirubin 3 H, Urine Urobilinogen 1 H, Ur Leukocyte Esterase 25 H, Urine RBC 0-5 SEEN, Urine WBC 0-5 SEEN, Ur Squamous Epith Cells 0-5 SEEN, Urine Bacteria 1+, Hyaline Casts 10-25 SEEN, Coarse Granular Casts 5-10 SEEN, Urine Mucus 0 SEEN 06/03/22 20:25: COVID-19 (ESTUARDO) Not Detected 06/03/22 22:00: Ammonia 20.0, B-Natriuretic Peptide 438.2 H 06/03/22 22:00: Procalcitonin 0.27 H 06/03/22 23:07: POC Glucose 111 H 06/04/22 05:50: WBC 6.3, RBC 2.93 L, Hgb 8.8 L, Hct 29.8 L, MCV 101.7 H, MCH 30.0, MCHC 29.5 L, RDW Std Deviation 60.8 H, RDW Coeff of Petty 16.3 H, Plt Count 125 L, MPV 10.6, Immature Gran % (Auto) 0.500, Neut % (Auto) 93.8 H, Lymph % (Auto) 3.7 L, Jewell % (Auto) 1.4, Eos % (Auto) 0.3, Baso % (Auto) 0.3, Absolute Neuts (auto) 5.9, Absolute Lymphs (auto) 0.23 L, Nucleated RBC % 0, Anisocytosis 2+, Macrocytosis 2+ 06/04/22 05:50: Sodium 129 L, Potassium 4.7, Chloride 95 L, Carbon Dioxide 27.0, Anion Gap 7, BUN 34 H, Creatinine 3.75 H, Estim Creat Clear Calc 15.18, Est GFR (MDRD) Af Amer 20 L, Est GFR (MDRD) Non-Af 17 L, BUN/Creatinine Ratio 9.1 L, Glucose 193 H, Calcium 8.5, Total Bilirubin 0.80, AST 28, ALT 19, Alkaline Phosphatase 81, Total Protein 6.4, Albumin 3.0 L, Globulin 3.4, Albumin/Globulin Ratio 0.9 06/04/22 06:19: POC Glucose 187 H Micro: Microbiology 06/03/22 18:00 Urine, Random Legionella Antigen - Final 06/03/22 18:00 Urine, Random Streptococcus pneumoniae Antigen (M - Final 06/03/22 20:25 Mucosa - Nasopharyngeal Respiratory Panel (PCR) - Final ABG Data ABG results: ABG 06/03/22 20:19 Specimen Type ART Sample Site R Radial pH 7.34 L Bicarbonate Actual 27.8 H Total CO2 29 Base Excess 2 O2 Saturation 91 L ABG pCO2 51.0 H ABG pO2 66 L Vahid Test Positive O2 Delivery Device Room Air Radiography Diagnostic Testing: Radiology Impression Brain CT 06/03/22 16:48 IMPRESSION: Chronic microvascular ischemic change without acute intracranial or calvarial abnormality. No interval change. Electronically Signed: Benito Diaz DO at 17:57 EDT Reading Location ID and State: [place] / [place] Tel [phone], Service support , Chest X-Ray 06/03/22 17:31 IMPRESSION: 1. Limited inspiratory effort. Atelectasis versus infiltrate at the lung bases. 2. No other interval change. Electronically Signed: Benito CentrevilleDO lucrecia at 17:55 EDT Reading Location ID and State: [employer] / [place] Tel [phone], Service support , Physical Exam Const alert Orientation / Consciousness: oriented to person and confused Exam Limitations: altered mental status HEENT head/scalp atraumatic and moist oral mucous membranes Head and Scalp: normocephalic Eyes conjunctivae normal and no scleral icterus Neck no lymphadenopathy and supple General: trachea midline Resp normal respiratory effort Effort and Inspection: able to speak in complete sentences and symmetric chest movement Auscultation: diminished lung sounds Cardio regular rate, regular rhythm, S1 normal heart sound and S2 normal heart sound GI normal to inspection, nondistended, normoactive bowel sounds, soft to palpation and non-tender Extremity normal to inspection General Extremity: edema bilateral lower extremity Details: moderate Neuro moves all extremities, no focal motor deficits and no sensory deficits noted Neuro Narrative: Patient having intermittent jerking movements to all 4 extremities Sensorium / Orientation: oriented to person and confused Psych Activity / Motor Behavior: hyperactive and restless Thought Content: hallucination(s) Assessment & Plan Assessment/Plan (1) Acute confusion: PLAN: Plan 1. Acute encephalopathy, unclear etiology -Patient continues to be acutely confused, MRI brain ordered -Ammonia level normal -Sputum culture pending, blood culture taken from dialysis catheter 2. End-stage kidney disease with dialysis -Dialysis attempted today however dialysis catheter not working -Dr. Kathleen consulted for new dialysis catheter. Patient has already 8 today so to be done at 730 tomorrow morning -Plan for dialysis tomorrow afternoon after dialysis catheter placement, labs currently at baseline 3. GERD with recent GI bleed -CBC daily -Continue sucralfate and PPI 4. Chronic bilateral lower extremity stasis wounds -Wound nurse following -Keep extremities elevated 5. Chronic atrial fibrillation -Patient not currently anticoagulated -Beta-arthur held at this time due to hypotension 6. Hypertension -BP meds on hold secondary to hypotension -Vital signs per protocol 7. Diabetes mellitus type 2 -ACH S blood sugars are sliding scale insulin ordered -Hold home regimen -Calorie controlled diet 8. Diastolic CHF -Home medication regimen on hold secondary to hypotension -No signs or symptoms of decompensation DVT prophylaxis-SCDs avoid pharmacological prophylaxis secondary to recent GI bleed This patient was seen by Simi Connelly NP-C under the supervision of Dr. Calvo 14 minutes spent in clinical coordination of patient's plan of care. Documented by User: Dr. Maynor Calvo MD 06/04/22 14:00 Objective Data Lab / Micro Data Result Diagrams: 06/04/22 05:50 06/04/22 05:50 Assessment & Plan Assessment/Plan (1) Acute confusion: Addt'l Comments This patient was seen in conjunction with CHESTER Maurice .? I have independently interviewed and examined the patient and reviewed pertinent historical, laboratory, and other data.? Please refer to CHESTER Maurice? note for details of this patient's presentation, findings, and recommendations.? I have reviewed? CHESTER Maurice note and concur? with documented findings. In brief, patient Patient is an 76-year-old gentleman resident at an extended care facility brought in with increasing confusion Physical Examination: GENERAL: Patient is frail looking HEENT: Atraumatic; EYES; Anicteric, Normal Conjunctiva NECK; supple, normal thyroid, RESPIRATORY: Diminished to auscultation CARDIOVASCULAR:? Regular S1 S2, GI:? soft, normoactive bowel sounds, : No Renal angle tenderness; EXTREMITIES: Bilateral lower extremity stasis dermatitis MUSCULOSKELETAL:? no muscle wasting NEURO:? Awake;? no lateralizing signs. SKIN:?As described above PSYCH; Flat? affect Assessment: ?1.? Acute metabolic encephalopathy 2. End-stage renal disease on hemodialysis 3. Chronic A. fib 4. GERD 5. Essential hypertension (BP meds on hold in view of relative hypotension) 6. Class III obesity with BMI of 54.1 7. Chronic diastolic congestive heart failure 8. Dyslipidemia 9. Diabetes mellitus type 2 10. DVT prophylaxis Recommendations: 1.? I have discussed the results of my overview and impressions with the patient 2.? Options for management were reviewed Total time spent by myself and the advanced practice practitioner evaluating patient, reviewing labs, subsequent management decisions, discussion with patient as well as other providers 40 minutes ( 25 of which was spent by myself) Charges/Coding Visit Charges Inpatient E&M: 85337 Subs Hosp L3
[2022-06-04] MEDS: Heparin 10,000 UNITS/10 ML Vial 3200 UNITS IV (12:24)
[2022-06-04] MEDS: Lidocaine 1% (20 ml mdv) 20 ML Vial INFILT (12:24)
[2022-06-04] MEDS: Pantoprazole Sodium 40 MG Tablet PO (12:28)
[2022-06-04] MEDS: Vitamin B Comp W-C Capsule 1 CAP PO (12:28)
[2022-06-04] MEDS: Multivitamins,Therapeutic Tablet 1 TABLET PO (12:29)
[2022-06-04] MEDS: Ezetimibe 10 MG Tablet PO (12:29)
[2022-06-04] MEDS: Cholecalciferol (VIT D3) 25 MCG TABLET (1,000 UNITS) 50 MCG PO (12:29)
[2022-06-04 12:45] LABS: Bedside Glucose 293 mg/dL (74-106)
--- NOTE | 2022-06-04 14:19 | CASEMGMT ---
Rozina does have an e-mail out to [facility] regarding a one time contract. SW did call patient's son and let him know that [facility] does not transport patients. SW let him know that SW is calling facilities and finding out who transports patients to dialysis. SW received a return email from [facility] regarding contracts. SW was informed that SW needs to call the authorization department. SW called Adriana with care management at [facility] and left her a voice mail. SW called [facility] in [place] and they will set up transport, but it is at the family's expense. SW called [facility] and they do not provide transportation for dialysis. SW called [facility] and left a voice mail requesting a return call. SW called [facility] and they are not taking dialysis patients. However, their sister facility [facility] does take dialysis patients. SW called [facility] and left a voice mail. SW was informed that [facility] does on site dialysis even for Acute Renal Failure. SW called [facility] and spoke with Kush regarding referral. Referral was also faxed. Await response. Simi Samuels PRODUCTION LINE TECHNICIAN SVETLANA
--- NOTE | 2022-06-04 14:51 | CASEMGMT ---
Readmission chart review: 05/07-05/13/22 Hypoxia, pna, CHF 05/16-05/28/22 GI bleed 06/03/22-current Encephalopathy, hypoxia, COPD exac Pt initially admitted to PCU for possible fall and CHF w/ hypoxia. Pt had blisters on bilat LE's and was seen by wound care. See CM assessment on 05/08/22. Family had concerns with going wound care at home as pt lives alone and they were concerned about his safety so pt went to TCU for rehab. Pt returned from TCU with rectal bleeding on 05/16/22 and was once again admitted to PCU for GI bleed. Pt then also went into acute renal failure and needed to be started on dialysis. Pt was set up with OP HD at [facility] and family chose [facility] for rehab as pt could no longer return to TCU. Leg wounds healing. Pt returned to [facility] ED on 06/03/22 from [facility] for confusion, hypoxia. Pt does not want pt to return to [facility] as they do not feel pt was taken care of and Debra BISHPO aware. CM to follow for any further discharge planning/needs. SStsadie RN CM
--- NOTE | 2022-06-04 14:54 | RAD_ITS ---
STUDY: X-RAY CHEST REASON FOR EXAM: Male, 76 years old. SOB TECHNIQUE: Single AP portable view of the chest. COMPARISON: Comparison is made with prior study dated 06/03/2022. FINDINGS: EKG electrodes are seen. The right sided double lumen catheter has been removed. There is evidence of vascular congestion and mild degree of CHF. Blunting of the left costophrenic angle. There is moderate cardiac enlargement. Normal mediastinum and navi. Normal visualized pulmonary arteries. There is atherosclerotic calcification of the aortic arch with tortuosity. There are diffuse degenerative changes of the visualized thoracic spine. There is degenerative osteoarthritis of the bilateral shoulders. There is no demonstrated abnormality of the visualized soft tissue structures of the upper abdomen. RAD/Chest 1 View (Portable) IMPRESSION: Cardiomegaly and CHF. Electronically Signed: Evan Kirkland MD at 15:34 EDT ,
--- NOTE | 2022-06-04 14:56 | CASEMGMT ---
DARIO received a return call from Adriana at [facility]. Adriana said that if there is a facility within 25 miles that would take patient the patient would have to go to that facility. DARIO did tell Adriana that DARIO did send a referral to [facility] as they do on-site dialysis for Acute Renal Failure patients. DARIO and Adriana decided we will see what happens with this one and if they cannot accept then an out of network facility may be discussed. DARIO will let her know. Simi Samuels CYTOGENETIC TECHNICIAN SVETLANA
[2022-06-04 17:25] LABS: Bedside Glucose 305 mg/dL (74-106)
[2022-06-04 17:45] LABS: Blood Gas Specimen Type VEN; O2 Delivery Device Cannula; SITE L Radial; VBG BASE EXCESS -1 mmol/L (-1.0-3.5); VBG Bicarbonate 26 mmol/L (22-26); VBG PO2 39 mmHg (25-40); VBG SO2 64 % (50-70); VBG TCO2 28 mmol/L (23-33); VBG pCO2 59.4 mmHg (41-51); VBG pH 7.25 (7.32-7.42)
--- NOTE | 2022-06-04 19:10 | CPS ---
patients rr was 14 bpm at time of visit.
--- NOTE | 2022-06-04 22:40 | NURSING ---
Pt unable to answer questions appropriately this time. This RN called pt's son Maynor to answer surgical history questions for pt's plan surgery tomorrow.
[2022-06-04 22:51] LABS: Bedside Glucose 310 mg/dL (74-106)
[2022-06-05] VITALS (23 sets, daily range): BP systolic 109–160; BP diastolic 48–90; PULSE 61–102; RESP 14–21; TEMP 36.3–36.8; O2SAT 90–100; BMI 53.6
--- NOTE | 2022-06-05 05:55 | EKG12_ITS ---
Test Reason : am ekg Blood Pressure : / mmHG Vent. Rate : 076 BPM Atrial Rate : 250 BPM P-R Int : 000 ms QRS Dur : 206 ms QT Int : 448 ms P-R-T Axes : 000 071 002 degrees QTc Int : 504 ms Atrial fibrillation Right bundle branch block Abnormal ECG When compared with ECG of 23-MAY-2022 06:55, Current undetermined rhythm precludes rhythm comparison, needs review Confirmed by NICOLÁS AG, FANNIE ([id number]), video tape editor SAMANTA LEE ([id number]) on 06/05/2022 1:33:37 PM Referred By: Umesh Confirmed By:MICHELE MONZON MD
[2022-06-05 05:59] LABS: Absolute Lymphocyte Count 0.38 X10^3/uL (0.83-4.51); Absolute Neutrophil Count 5.8 X10^3/uL (2.0-7.7); Hematocrit 28.8 % (40-54); Hemoglobin 8.8 g/dL (13.0-16.5); Lymphocyte # 0.38 X10^3/ul (0.83-4.51); Lymphocyte % 5.5 % (19-41); Mean Corp Hgb Conc 30.6 g/dL (32-36); Mean Corpuscular Hgb 30.2 pg (27.0-32.0); Mean Platelet Vol. 10.4 fl (6.2-12.0); Monocyte# 0.69 X10^3/uL; NRBC Flagged by Analyzer 0 % (0-5); Neutrophil # 5.81 X10^3/uL (2.7-7.7); Neutrophil % 84.1 % (47-70); POSITIVE DIFFERENTIAL YES; Platelet Count 126 K/mm3 (150-450); RBC Distribution Width SD 58.2 fl (35.1-43.9); Red Blood Count 2.91 M/mm3 (4.6-6.2); White Blood Count 6.9 K/mm3 (4.4-11.0)
[2022-06-05 06:07] LABS: Differential Indicated SCAN CRITERIA MET
[2022-06-05 06:21] LABS: International Normalized Ratio 1.3; Prothrombin Time (Protime)PT. 15.5 SECONDS (11.7-14.9)
[2022-06-05 06:22] LABS: Partial Thromboplast Time 31.2 Seconds (24.1-36.2)
--- NOTE | 2022-06-05 06:30 | NURSING ---
Report given to JONATHON Thomas for OR schedule this morning.
[2022-06-05 06:35] LABS: BUN 48 mg/dL (7-18); BUN/Creat Ratio 12.1 RATIO (10-20); Calcium,Total 8.6 mg/dL (8.5-10.1); Chloride 95 mmol/L (98-107); Creatinine, Serum 3.98 mg/dL (0.70-1.30); EST Glomerular Filtration Rate 16 mL/min (>60); Est Glom Filt Rate - Afr Amer 19 mL/min (>60); Glucose 281 mg/dL (74-106); Phosphorus 6.9 mg/dL (2.5-4.9); Potassium 5.2 mmol/L (3.5-5.1); Sodium Level 129 mmol/L (136-145)
[2022-06-05 06:38] LABS: Macrocytosis 2+
[2022-06-05 06:39] LABS: Anisocytosis 2+
[2022-06-05] MEDS: Heparin 10,000 UNITS/10 ML Vial 10000 UNITS (08:00)
[2022-06-05] MEDS: Bupivacaine 0.25% 30 ML Vial (08:00)
[2022-06-05] MEDS: Lidocaine 1% (50 ml mdv) 50 ML Vial (08:00)
--- NOTE | 2022-06-05 08:16 | OP.PCM_ITS ---
Report of Operation Date of Procedure: 06/05/22 Pre-Operative Diagnosis: Chronic kidney disease, stage IV Post-Operative Diagnosis: Same Surgery/Procedure Performed:: Insertion of right IJ tunneled dialysis catheter Surgeon: Dulce Maria Kathleen Anesthesiologist: Anupam Miranda Special Medications: Ancef 3 g IV x1 Estimated Blood Loss (mL): Minimal Description of Procedure: After informed consent was given, the patient was brought to the operating room and placed in the supine position. Appropriate time out protocol was followed. He was then given IV conscious sedation for anesthesia. The patient's right upper chest and neck were then prepped with Betadine and sterile surgical drapes were placed. After proper landmarks were ascertained, the skin at the upper right chest area was then infiltrated with 1:1 mixture of 1% lidocaine with epinephrine and 0.5% maricaine. A needle trocar was then inserted into the right internal jugular vein with ultrasound guidance-multiple vessels were viewed with u/s and the right IJ was chosen-- and there was good aspiration of venous blood. A wire was then threaded into the needle trocar and this was visualized under fluoroscopy to ensure that the wire was in the superior vena cava. Once this was done, then the needle trocar was removed. A small incision was made with an 11 blade knife at the wire entrance site. The dilator x2 with the introducer sheath attached was then placed over the wire into the right internal jugular vein via the Seldinger technique and this was visualized under fluoroscopy. Next the introducer and sheath were in proper position as visualized by fluoroscopy. The location of the cuffed was estimated on the skin, an incision was made with a 15 blade scalpel. Location was slightly medial to the previous tunneled catheter site. The 14.5 Fr x 19 cm Palindrome dual lumen (Lot [id number] reference [id number]) was tunneled from the chest incision to the right neck incision. The sheath was removed. The catheter was placed through the introducer and was positioned with its tip at the junction of the superior vena cava and the right atrium as visualized under fluoroscopy. The cuff of the catheter was in the subcutaneous tissue. The catheter flushed and katie well with saline. Catheter was also flushed with 1.6 cc of 1-10,000 of heparin. Hemostasis was assured. Silver dressing was placed at the catheter exit site. Catheter was sutured with 3-0 nylon sutures?previous counterincision was also sutured with 3-0 nylon interrupted suture. The neck incision was sutured with interrupted 3-0 Vicryl interrupted sutures x2 and Steri-Strips were placed. A large OpSite was placed over the catheter site and a small OpSite over the neck incision. The patient tolerated the procedure well. Grafts/Implants Used: 14.5 Fr x 19 cm MKN Web Solutionsrome dual lumen (Lot [id number] reference [id number]
--- NOTE | 2022-06-05 08:40 | RAD_ITS ---
STUDY: X-RAY CHEST REASON FOR EXAM: Male, 76 years old. Dialysis cath -- pacu TECHNIQUE: Single AP portable view of the chest. COMPARISON: Comparison is made with prior study dated 06/04/2022. FINDINGS: A right sided dialysis catheter has been placed with the tip at the junction of the superior vena cava and right atrium. Since prior study, the CHF has improved. Residual atelectasis and/or infiltrate at the left lung base. Blunting of the left costophrenic angle. There is moderate cardiac enlargement. Normal mediastinum and navi. Normal visualized pulmonary arteries. There is atherosclerotic calcification of the aortic arch with tortuosity. There are diffuse degenerative changes of the visualized thoracic spine. Normal visualized ribs, clavicles, and shoulders. There is no demonstrated abnormality of the visualized soft tissue structures of the upper abdomen. RAD/CXR for Line Placement IMPRESSION: The tip of the right dialysis catheter is at the junction of the superior vena cava and right atrium. Improved CHF with residual atelectasis at the left lung base with blunting of the left costophrenic angle. Electronically Signed: Evan Kirkland MD at 9:05 EDT ,
--- NOTE | 2022-06-05 11:32 | CASEMGMT ---
DARIO e-mailed Rozina at [facility] and updated her on insurance, [place], and out of network contracts. DARIO asked if she could check to make sure they could arrange transportation for patient if he would come to them. DARIO called patient's son, Maynor and updated him on [place], insurance, and [facility]. He was in agreement with whatever is best for patient. DARIO told him SW will update him as SW knows more. He asked if physician plumbing and heating contractor could call him with an update on patient's medical condition. DARIO will pass along this information to RN and Nurse Practitioner Jaymie. DARIO spoke with LEANN Coon regarding updating son. Simi Samuels DIRECTOR MONEY SVETLANA
[2022-06-05 11:50] LABS: Bedside Glucose 263 mg/dL (74-106)
[2022-06-05 11:55] LABS: Bedside Glucose 170 mg/dL (74-106)
--- NOTE | 2022-06-05 12:22 | PCM.PN.HOSP ---
Documented by User: Jaymie Mcclendon NP, IT ARCHITECTURE ANALYST-C 06/05/22 12:46 Subjective Subjective Patient seen and examined. Drowsy this morning. Underwent replacement of right IJ tunneled dialysis catheter. Undergoing dialysis. No apparent distress. Objective Data Objective Data Vital Signs: Vital Signs Temp Pulse Resp BP Pulse Ox O2 Del Method O2 Flow Rate 97.9 F 86 20 H 160/55 H 100 Nasal Cannula 3 06/05/22 09:15 06/05/22 11:05 06/05/22 11:05 06/05/22 09:15 06/05/22 10:00 06/05/22 10:00 06/05/22 10:00 FiO2 30 06/05/22 06:03 Oxygen Flow Rate (L/min) 3 Oxygen Delivery Method Nasal Cannula Weight: 342 lb 6.046 oz Body Mass Index (BMI) 53.6 Intake & Output: Intake and Output for Last 24 Hours 06/03/22 06/04/22 06/05/22 23:59 23:59 23:59 Intake Total 120 / 120 50 / 50 515 / 515 Output Total 0 / 0 0 / 0 Balance 120 / 120 50 / 50 515 / 515 Lab / Micro Data Result Diagrams: 06/05/22 05:30 06/05/22 05:30 Labs: Laboratory Results - last 24 hr 06/04/22 12:20: POC Glucose 293 H 06/04/22 17:01: POC Glucose 305 H 06/04/22 21:27: POC Glucose 310 H 06/05/22 05:30: WBC 6.9, RBC 2.91 L, Hgb 8.8 L, Hct 28.8 L, MCV 99.0 H, MCH 30.2, MCHC 30.6 L, RDW Std Deviation 58.2 H, RDW Coeff of Petty 16.0 H, Plt Count 126 L, MPV 10.4, Immature Gran % (Auto) 0.400, Neut % (Auto) 84.1 H, Lymph % (Auto) 5.5 L, [place] % (Auto) 10.0, Eos % (Auto) 0.0, Baso % (Auto) 0.0, Absolute Neuts (auto) 5.8, Absolute Lymphs (auto) 0.38 L, Nucleated RBC % 0, Anisocytosis 2+, Macrocytosis 2+ 06/05/22 05:30: Sodium 129 L, Potassium 5.2 H, Chloride 95 L, Carbon Dioxide 28.0, BUN 48 H, Creatinine 3.98 H, Estim Creat Clear Calc 14.30, Est GFR (MDRD) Af Amer 19 L, Est GFR (MDRD) Non-Af 16 L, BUN/Creatinine Ratio 12.1, Glucose 281 H, Calcium 8.6, Phosphorus 6.9 H, Albumin 3.0 L 06/05/22 05:30: PT 15.5 H, INR 1.3, APTT 31.2 06/05/22 06:00: Blood Type O POSITIVE, Antibody Screen NEGATIVE 06/05/22 06:03: POC Glucose 263 H 06/05/22 11:36: POC Glucose 170 H Micro: Microbiology 06/04/22 10:26 Blood Culture (Wb) #2 - Dialysis/Fistula Bacteria Detection (PCR) - Final Staphylococcus epidermidis 06/04/22 10:26 Blood Culture (Wb) #2 - Dialysis/Fistula Blood Culture - Preliminary 06/04/22 13:10 Catheter - Dialysis/Fistula Gram Stain - Final 06/03/22 18:00 Urine, Random Legionella Antigen - Final 06/03/22 18:00 Urine, Random Streptococcus pneumoniae Antigen (M - Final 06/03/22 20:25 Mucosa - Nasopharyngeal Respiratory Panel (PCR) - Final ABG Data ABG results: ABG 06/04/22 17:43 Specimen Type SONALI Sample Site L Radial VBG pH 7.25 L VBG pO2 39 VBG HCO3 26 VBG Total CO2 28 VBG O2 Sat (Calc) 64 VBG Base Excess -1 POC Mix VBG pCO2 Pt Tmp 59.4 H O2 Delivery Device Cannula Liter Flow 2.0 Radiography Diagnostic Testing: Radiology Impression Brain MRI 06/04/22 10:39 IMPRESSION: Moderate atrophy and mild nonspecific periventricular white matter hyperintensity without mass effect or restricted diffusion. This likely reflects chronic ischemic changes secondary to small vessel disease in patient of this age however other etiologies including nonspecific PRES , demyelinating disease, or inflammatory disease not entirely excluded. Clinical correlation recommended Electronically Signed: Gregory Doyle MD at 17:50 EDT , Chest X-Ray 06/04/22 14:54 IMPRESSION: Cardiomegaly and CHF. Electronically Signed: Evan Kirkland MD at 15:34 EDT , Chest X-Ray 06/05/22 08:40 IMPRESSION: The tip of the right dialysis catheter is at the junction of the superior vena cava and right atrium. Improved CHF with residual atelectasis at the left lung base with blunting of the left costophrenic angle. Electronically Signed: Evan Kirkland MD at 9:05 EDT , Physical Exam Const Constitutional Narrative: Drowsy, no apparent distress HEENT normocephalic Mouth: dry mucous membranes Eyes PERRL, EOMs intact bilaterally and conjunctivae normal Neck no lymphadenopathy Resp clear to auscultation bilaterally Auscultation: diminished lung sounds Cardio Cardio Narrative: Atrial fibrillation Peripheral Pulses: pulses 2+ throughout GI normal to inspection, nondistended, normoactive bowel sounds, non-tender and non-distended Extremity normal to inspection General Extremity: edema bilateral lower extremity Skin no rashes or lesions noted Skin Narrative: Bilateral lower extremity venous stasis wounds/skin changes Lesions: no lesions Rashes: no rashes Trauma: no lacerations or abrasions Neuro CN's II-XII intact bilaterally, no focal motor deficits, no sensory deficits noted and deep tendon reflexes 2+ bilaterally Psych mental status grossly normal and affect normal Assessment & Plan Assessment/Plan (1) Acute confusion: PLAN: Plan 1. Acute hypoxic respiratory failure secondary to acute exacerbation of chronic COPD and acute on chronic heart failure with preserved ejection fraction, complicated by stage IV chronic kidney disease-initially on BiPAP. Oxygen now stable on 3 L nasal cannula. Continue supplement oxygen to maintain O2 at above 90%. 2. Acute exacerbation of chronic COPD- Continue IV Solu-Medrol. Albuterol and DuoNeb aerosols. 3. Acute on chronic heart failure with preserved ejection fraction-torsemide and spironolactone initially held due to hypotension. Patient undergoing dialysis. Repeat chest x-ray with improvement in CHF. Resume home diuretic regimen. 4. Acute encephalopathy-likely metabolic secondary to #1/2/#3. MRI without stroke. Noted likely chronic ischemic changes. 5. Chronic kidney disease stage IV-nephrology consulted. Underwent tunneled dialysis catheter replacement 06/05/2022. History of chronic kidney disease stage IIIb however recently worsened due to hemorrhagic shock. 6. Chronic atrial fibrillation-anticoagulation on hold due to recent GI bleed. Continue metoprolol. 7. Chronic heart failure with preserved ejection fraction-no exacerbation. On toresmide, spironolactone. 8. Anemia of chronic disease-hemoglobin reduced from baseline due to recent GI bleed. Trend CBC. 9. Type 2 diabetes mellitus with neuropathy-oral regimen on hold. Accu-Cheks with sliding scale insulin. Continue home insulin regimen. 10. Hypertension-continue current regimen. 11. Hyperlipidemia-continue statin. 12. GERD with recent GI bleed-on PPI, Carafate. 13. Chronic bilateral lower extremity venous stasis wounds-wound RN consulted. 14. Morbid obesity- weight loss encouraged. DVT prophylaxis-SCDs This patient was seen by CHESTER Mcqueen under the supervision of Dr. Calvo. Documented by User: Dr. Maynor Calvo MD 06/05/22 15:17 Objective Data Lab / Micro Data Result Diagrams: 06/05/22 05:30 06/05/22 05:30 Assessment & Plan Assessment/Plan (1) Acute confusion: Addt'l Comments This patient was seen in conjunction with CHESTER Mcqueen . I have independently interviewed and examined the patient and reviewed pertinent historical, laboratory, and other data. Please refer to CHESTER Mcqueen note for details of this patient's presentation, findings, and recommendations. I have reviewed CHESTER Mcqueen note and concur with documented findings. In brief, patient Patient is an 76-year-old gentleman resident at an extended care facility brought in with increasing confusion 06/05/2022; patient seen scheduled to undergo dialysis catheter placement. Still remains confused and lethargic Physical Examination: GENERAL: Patient is frail looking HEENT: Atraumatic; EYES; Anicteric, Normal Conjunctiva NECK; supple, normal thyroid, RESPIRATORY: Diminished to auscultation CARDIOVASCULAR:? Regular S1 S2, GI:? soft, normoactive bowel sounds, : No Renal angle tenderness; EXTREMITIES: Bilateral lower extremity stasis dermatitis MUSCULOSKELETAL:? no muscle wasting NEURO:? Awake;? no lateralizing signs. SKIN:?As described above PSYCH; Flat? affect Assessment: ?1.? Acute metabolic encephalopathy 2.? End-stage renal disease on hemodialysis 3.? Chronic A. fib 4.? GERD 5.? Essential hypertension (BP meds on hold in view of relative hypotension) 6.? Class III obesity with BMI of 54.1 7.? Chronic diastolic congestive heart failure 8.? Dyslipidemia 9.? Diabetes mellitus type 2 10.? DVT prophylaxis Recommendations: 1.? I have discussed the results of my overview and impressions with the patient 2.? Options for management were reviewed Total time spent by myself and the advanced practice practitioner evaluating patient, reviewing labs, subsequent management decisions, discussion with patient as well as other providers 40 minutes ( 25 of which was spent by myself) Charges/Coding Visit Charges Inpatient E&M: 47004 Subs Hosp L2
--- NOTE | 2022-06-05 13:35 | TELEMED_ITS ---
[facility] has confirmed receipt of a request for visit. This document confirms receipt of the order initiating the consult. To find the results of the consultation, please view the patient's reports for the scanned Telemed Consult.
--- NOTE | 2022-06-05 13:52 | PN.RENAL_ITS ---
Subjective Subjective Seen on dialysis, tolerating treatment well. More alert and oriented. Denies any complaints. [place]. Grandson at bedside. Objective Data Objective Data Vital Signs: Vital Signs Temp Pulse Resp BP Pulse Ox O2 Del Method O2 Flow Rate 97.9 F 86 20 H 160/55 H 100 Nasal Cannula 3 06/05/22 09:15 06/05/22 11:05 06/05/22 11:05 06/05/22 09:15 06/05/22 10:00 06/05/22 10:00 06/05/22 10:00 FiO2 30 06/05/22 06:03 Oxygen Flow Rate (L/min) 3 Oxygen Delivery Method Nasal Cannula Weight: 155.3 kg Body Mass Index (BMI) 53.6 Intake & Output: Intake and Output for Last 24 Hours 06/03/22 06/04/22 06/05/22 23:59 23:59 23:59 Intake Total 120 / 120 50 / 50 552.25 / 552.25 Output Total 0 / 0 0 / 0 Balance 120 / 120 50 / 50 552.25 / 552.25 Lab / Micro Data Result Diagrams: 06/05/22 05:30 06/05/22 05:30 Labs: Laboratory Results - last 24 hr 06/04/22 17:01: POC Glucose 305 H 06/04/22 21:27: POC Glucose 310 H 06/05/22 05:30: WBC 6.9, RBC 2.91 L, Hgb 8.8 L, Hct 28.8 L, MCV 99.0 H, MCH 30.2, MCHC 30.6 L, RDW Std Deviation 58.2 H, RDW Coeff of Petty 16.0 H, Plt Count 126 L, MPV 10.4, Immature Gran % (Auto) 0.400, Neut % (Auto) 84.1 H, Lymph % (Auto) 5.5 L, [place] % (Auto) 10.0, Eos % (Auto) 0.0, Baso % (Auto) 0.0, Absolute Neuts (auto) 5.8, Absolute Lymphs (auto) 0.38 L, Nucleated RBC % 0, Anisocytosis 2+, Macrocytosis 2+ 06/05/22 05:30: Sodium 129 L, Potassium 5.2 H, Chloride 95 L, Carbon Dioxide 28.0, BUN 48 H, Creatinine 3.98 H, Estim Creat Clear Calc 14.30, Est GFR (MDRD) Af Amer 19 L, Est GFR (MDRD) Non-Af 16 L, BUN/Creatinine Ratio 12.1, Glucose 281 H, Calcium 8.6, Phosphorus 6.9 H, Albumin 3.0 L 06/05/22 05:30: PT 15.5 H, INR 1.3, APTT 31.2 06/05/22 06:00: Blood Type O POSITIVE, Antibody Screen NEGATIVE 06/05/22 06:03: POC Glucose 263 H 06/05/22 11:36: POC Glucose 170 H Micro: Microbiology 06/04/22 10:26 Blood Culture (Wb) #2 - Dialysis/Fistula Bacteria Detection (PCR) - Final Staphylococcus epidermidis 06/04/22 10:26 Blood Culture (Wb) #2 - Dialysis/Fistula Blood Culture - Preliminary 06/04/22 13:10 Catheter - Dialysis/Fistula Gram Stain - Final 06/03/22 18:00 Urine, Random Legionella Antigen - Final 06/03/22 18:00 Urine, Random Streptococcus pneumoniae Antigen (M - Final 06/03/22 20:25 Mucosa - Nasopharyngeal Respiratory Panel (PCR) - Final ABG Data ABG results: ABG 06/04/22 17:43 Specimen Type SONALI Sample Site L Radial VBG pH 7.25 L VBG pO2 39 VBG HCO3 26 VBG Total CO2 28 VBG O2 Sat (Calc) 64 VBG Base Excess -1 POC Mix VBG pCO2 Pt Tmp 59.4 H O2 Delivery Device Cannula Liter Flow 2.0 Radiography Diagnostic Testing: Radiology Impression Brain MRI 06/04/22 10:39 IMPRESSION: Moderate atrophy and mild nonspecific periventricular white matter hyperintensity without mass effect or restricted diffusion. This likely reflects chronic ischemic changes secondary to small vessel disease in patient of this age however other etiologies including nonspecific PRES , demyelinating disease, or inflammatory disease not entirely excluded. Clinical correlation recommended Electronically Signed: Gregory Doyle MD at 17:50 EDT , Chest X-Ray 06/04/22 14:54 IMPRESSION: Cardiomegaly and CHF. Electronically Signed: Evan Kirkland MD at 15:34 EDT , Chest X-Ray 06/05/22 08:40 IMPRESSION: The tip of the right dialysis catheter is at the junction of the superior vena cava and right atrium. Improved CHF with residual atelectasis at the left lung base with blunting of the left costophrenic angle. Electronically Signed: Evan Kirkland MD at 9:05 EDT , Physical Exam Narrative Const: Alert and oriented. No apparent distress HEENT: oral mucosa moist Cardio: S1, S2, RRR GI: Abdomen soft, +BS x4 quadrants. Extremities: edema to b/l thighs and legs. Tunneled HD catheter C/D/I, accessed for dialysis Assessment & Plan Assessment/Plan (1) Acute confusion: (2) SAQIB (acute kidney injury): (3) Chronic kidney disease, stage IV (severe): (4) Anemia: PLAN: Plan - Dialysis requiring SAQIB secondary to ATN. His first dialysis was on May 17, 2022. Patient unable to have dialysis yesterday due to poorly functioning tunneled HD catheter. New tunneled catheter placed today and patient tolerated 4 hours of dialysis with 4 L of fluid removed. Plan for dialysis again tomorrow over 4hours and attempt ~4L UF as pt/bp tolerate. EDW not reached/established yet. We will continue to monitor for renal recovery. Patient is hypervolemic and likely once volume status improves we will see him more accurate creatinine. No heparin with dialysis - CKD stage IV with baseline creatinine ranging around 2.3 mg/dL. 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 -Altered mental status improving. MRI no acute process. Afebrile. WBC normal. UA showed improvement from previous UA. Brain CT no acute pathology. Blood cult ures pending from tunneled HD catheter. Peripheral BC pending. -Blood pressures acceptable on lopressor, lasix and aldactone - patient has history of chronic anemia and recent history of GI bleed. Hgb trends acceptable. On PPI. Hgb 8.8 -Exacerbation COPD: On O2. Receiving IV steroids and breathing treatments. Chest x-ray reviewed, atelectasis versus infiltrate at lung bases - discharge planning in progress. Family looking into different ECF
[2022-06-05] MEDS: Azelastine HCl NASAL.SRY 1 SPRAY NASAL ×2 (13:57→21:17)
[2022-06-05] MEDS: Fluticasone 0.05% 1 SPRAY NASAL.SRY NASAL ×2 (13:58→21:17)
[2022-06-05] MEDS: Insulin Glargine-YFGN 100 UNIT/ML Pen 40 UNIT SC (14:00)
[2022-06-05] MEDS: Insulin Lispro 100 UNIT/ML INSULN.PEN SC ×3 (14:00→21:18)
[2022-06-05] MEDS: Multivitamins,Therapeutic Tablet 1 TABLET PO (14:00)
[2022-06-05] MEDS: Loratadine 10 MG Tablet PO (14:01)
[2022-06-05] MEDS: Vitamin B Comp W-C Capsule 1 CAP PO (14:01)
[2022-06-05] MEDS: Pantoprazole Sodium 40 MG Tablet PO ×2 (14:01→21:19)
[2022-06-05] MEDS: Ezetimibe 10 MG Tablet PO (14:01)
[2022-06-05] MEDS: Cholecalciferol (VIT D3) 25 MCG TABLET (1,000 UNITS) 50 MCG PO (14:01)
[2022-06-05] MEDS: Menthol/Lanolin/Calamine/Znox 113 GM Tube 1 APPLIC TOPICAL ×3 (14:02→21:17)
[2022-06-05] MEDS: Gabapentin 100 MG Capsule PO ×2 (14:11→21:23)
[2022-06-05 14:35] LABS: Bedside Glucose 180 mg/dL (74-106)
--- NOTE | 2022-06-05 14:47 | DIALYSIS ---
4 hours HD completed. UF 4000 ml. patient tolerated well. new CVC WNL, some high arterial pressures. ice to site. placement verified prior to use. see dialysis record.
--- NOTE | 2022-06-05 15:43 | CASEMGMT ---
DARIO received a call from Kush with [facility] and he does not think they will have a bed for patient. DARIO called [facility] and left a message as well as e-mailed admissions. DARIO called Adriana at [facility] requesting a return call. DARIO also called [facility] and inquired if they would be able to transport patient to and from dialysis. It is possible they could transport patient. Await calls from [facility] and [facility]. Simi Samuels APPLICATION OPERATIONS ENGINEER SVETLANA
--- NOTE | 2022-06-05 16:00 | CASEMGMT ---
DARIO received a return call from Adriana at [facility]. Adriana asked why family does not want patient to return to [facility]. DARIO explained that family showed up on the first night to see patient and he was lying in bed naked in his own feces. Also, there were at least 2 other times when patient hit his call light and no one came. Family called the nurses station both times. DARIO also mentioned one of the nurses told patient she was not going to help him because his son was out at the desk cussing and yelling. Per patient's son Maynor he was not cussing and yelling, but he was firm. He also said he spoke with the supervisor network control operators at [facility] and she indicated that the particular RN was let go. Adriana said it will be up to the MD at the insurance company as to whether or not an out of network place will be approved. Adriana told DARIO that DARIO will need to type up a note explaining what happened at [facility] that family does not want patient to return. This will need to be submitted with the request for authorization along with clinicals. Simi MOTA
[2022-06-05] MEDS: Sucralfate 1 GM Tablet PO (16:30)
[2022-06-05 17:05] LABS: Bedside Glucose 298 mg/dL (74-106)
[2022-06-05] MEDS: Ipratropium/Albuterol Sulfate 3 ML AMPUL.NEB INHALATION (19:19)
[2022-06-05] MEDS: Metoprolol Tartrate 50 MG Tablet PO (21:19)
[2022-06-05] MEDS: Pravastatin 40 MG Tablet PO (21:19)
[2022-06-05] MEDS: QUEtiapine 25 MG Tablet 12.5 MG PO (21:20)
[2022-06-05 22:05] LABS: Bedside Glucose 339 mg/dL (74-106)
[2022-06-06] VITALS (18 sets, daily range): BP systolic 112–161; BP diastolic 60–87; PULSE 68–97; RESP 14–19; TEMP 36.6–36.8; O2SAT 95–100
[2022-06-06 04:38] LABS: Absolute Neutrophil Count 6.2 X10^3/uL (2.0-7.7); Hematocrit 28.1 % (40-54); Hemoglobin 8.5 g/dL (13.0-16.5); Lymphocyte % 4.3 % (19-41); Mean Corp Hgb Conc 30.2 g/dL (32-36); Mean Corpuscular Hgb 29.8 pg (27.0-32.0); Mean Corpuscular Volume 98.6 fL (80-94); Mean Platelet Vol. 10.1 fl (6.2-12.0); Monocyte# 0.42 X10^3/uL; Monocyte% 6.1 % (0-10); NRBC Flagged by Analyzer 0 % (0-5); Neutrophil # 6.15 X10^3/uL (2.7-7.7); POSITIVE DIFFERENTIAL YES; Platelet Count 118 K/mm3 (150-450); RBC Distribution Width CV 16.3 % (11.6-14.6); Red Blood Count 2.85 M/mm3 (4.6-6.2); White Blood Count 6.9 K/mm3 (4.4-11.0)
[2022-06-06 04:44] LABS: Differential Indicated SCAN CRITERIA MET
[2022-06-06 04:55] LABS: Anion Gap 8 (5-15); BUN 39 mg/dL (7-18); BUN/Creat Ratio 12.1 RATIO (10-20); Calcium,Total 8.3 mg/dL (8.5-10.1); Chloride 95 mmol/L (98-107); Creatinine, Serum 3.22 mg/dL (0.70-1.30); EST Glomerular Filtration Rate 20 mL/min (>60); Est Glom Filt Rate - Afr Amer 24 mL/min (>60); Estimated Creatinine Clearance 17.68 ml/min; Glucose 313 mg/dL (74-106); Potassium 4.8 mmol/L (3.5-5.1); Sodium Level 132 mmol/L (136-145)
[2022-06-06 05:13] LABS: Differential Comment SCANNED
[2022-06-06] MEDS: Gabapentin 100 MG Capsule PO ×2 (06:11→21:14)
[2022-06-06] MEDS: Sucralfate 1 GM Tablet PO ×2 (06:11→17:35)
[2022-06-06] MEDS: Insulin Lispro 100 UNIT/ML INSULN.PEN SC ×4 (06:49→21:15)
[2022-06-06 07:10] LABS: Bedside Glucose 312 mg/dL (74-106)
[2022-06-06] MEDS: Ipratropium/Albuterol Sulfate 3 ML AMPUL.NEB INHALATION ×4 (07:37→19:25)
--- NOTE | 2022-06-06 07:41 | CASEMGMT ---
DARIO received a voice mail from Alisha at [facility] ([facility]). They did get DARIO's voice mail. Rozina was out at a training all day. Rozina will be back in the office tomorrow (Thursday) am. Their intelligence clerk is still looking at the referral. Simi MOTA
--- NOTE | 2022-06-06 09:39 | CASEMGMT ---
DARIO was asked by Adriana at [facility] to share in a note why patient and his family do not want patient to return to [facility] ([facility]). This will aide in trying to get an out of network facility approved. The other local facilities that take patient's insurance cannot take him as they cannot transport to and from dialysis. DARIO contacted at least 7 other facilities in [place], [facility] [place], [place], [place], [place], and [place]. Only 2 of those facilities considered patient as the others could not transport. Originally [facility] was considering patient, however they will not have a bed. [facility] in [place] was considering patient. However, [place] is over 30 miles away from patient and his family. DARIO is working with [facility]. DARIO called patient's son Maynor to obtain a more accurate account of what happened at [facility]. Patient went to [facility] ThuMay 28. Per Junior patient arrived at [facility] around 1430. Junior called patient Wed at 1800 and patient said he had a problem. He hit his call light as he had to use the bathroom and no one was coming. Junior called the nurses station and told them patient needs help getting to the bathroom. Per Junior 1 nurse tried and about dropped him. She obtained more help and they were not able to get him on the bed paez soon enough and patient had a bowel movement all over. Then that same evening about 1830 patient called Junior and said he has to go to the bathroom and he hit his call light and again no one was coming to help him. Junior again called the nurses station and let them know. Junior called patient back at 1900 and patient told him they are just coming into my room to help me right now. This was a half hour since Junior called the nurses station. 05-29 8:30a Junior went to see patient and he was lying in his bed naked. Per patient he was naked as around midnight they took his clothes off to inspect his skin, but never came back. Junior assisted patient in standing and found that patient was lying in his feces again. Then Junior noticed there were feces on the floor and on the floor in the bathroom. Junior called an aide in she assisted in getting the mess cleaned up. 05-30 Around 9ish am Junior went to see patient. [facility] called [facility] and asked where patient was as she was supposed to be there at 840a. Per Junior staff at [facility] thought patient was supposed to go to [facility] for dialysis. Thursday- Junior spoke with patient and he was fine. Patient was alert and oriented X4. Thursday Patient's daughter went to see patient at [facility]. Patient was very confused. She called in a nurse and was told patient has been like that all day. Junior and patient's grandson Mikel, who is also and EMT evaluated patient. Mikel told the physical therapist to call 911. Physical Therapist went to the nurses station called 911 and told the family squad is on there way and left. No nurse or any other staff came to patient's room to see what was happening. When the squad showed up they wheeled patient past the nurses station to the ambulance and no one at the nurses station looked up and said anything. Some of the other concerns patient's family had: Patient was in quarantine even though he had 3 COVID shots. Two initial and then 1 booster. Therefore patient was getting therapy in his room only. Patient was only getting 1 meal a day when he went to dialysis. He left before breakfast and came back right after lunch. [facility] gave him a sack lunch, but he could not eat it at dialysis because he had to wear a mask. Junior did talk with the facility mechanic Queta, the cistern room operator Radha, and the Nut Tapper Gabrielle. They offered apologies and said there are several agency nurses. Junior was also told the nurse that took care of patient the first night was terminated. Junior went to [facility] and cleaned out patient's room. No one at [facility] stopped him or spoke with him. Patient is now alert and oriented and he has also said he is not going back to [facility]. Simi MOTA
--- NOTE | 2022-06-06 09:41 | PN.RENAL_ITS ---
Subjective Subjective Sitting in chair, no overnight events. Alert and oriented x3. Denies any complaints. Objective Data Objective Data Vital Signs: Vital Signs Temp Pulse Resp BP Pulse Ox O2 Del Method O2 Flow Rate 97.9 F 70 18 157/60 H 99 Nasal Cannula 1 06/06/22 03:10 06/06/22 07:39 06/06/22 07:39 06/06/22 03:10 06/06/22 07:39 06/06/22 07:39 06/06/22 07:39 FiO2 25 06/06/22 04:05 Oxygen Flow Rate (L/min) 1 Oxygen Delivery Method Nasal Cannula Weight: 154.3 kg Body Mass Index (BMI) 53.6 Intake & Output: Intake and Output for Last 24 Hours 06/04/22 06/05/22 06/06/22 23:59 23:59 23:59 Intake Total 50 / 50 912.25 / 1092.25 280 / 280 Output Total 0 / 0 0 / 0 Balance 50 / 50 912.25 / 1092.25 280 / 280 Lab / Micro Data Result Diagrams: 06/06/22 03:59 06/06/22 03:59 Labs: Laboratory Results - last 24 hr 06/05/22 06:03: POC Glucose 263 H 06/05/22 11:36: POC Glucose 170 H 06/05/22 13:52: POC Glucose 180 H 06/05/22 16:31: POC Glucose 298 H 06/05/22 21:16: POC Glucose 339 H 06/06/22 03:59: WBC 6.9, RBC 2.85 L, Hgb 8.5 L, Hct 28.1 L, MCV 98.6 H, MCH 29 .8, MCHC 30.2 L, RDW Std Deviation 58.0 H, RDW Coeff of Petty 16.3 H, Plt Count 118 L, MPV 10.1, Immature Gran % (Auto) 0.600, Neut % (Auto) 89.0 H, Lymph % (Auto) 4.3 L, [place] % (Auto) 6.1, Eos % (Auto) 0.0, Baso % (Auto) 0.0, Absolute Neuts (auto) 6.2, Absolute Lymphs (auto) 0.30 L, Nucleated RBC % 0, Differential Comment SCANNED 06/06/22 03:59: Sodium 132 L, Potassium 4.8, Chloride 95 L, Carbon Dioxide 29.0, Anion Gap 8, BUN 39 H, Creatinine 3.22 H, Estim Creat Clear Calc 17.68, Est GFR (MDRD) Af Amer 24 L, Est GFR (MDRD) Non-Af 20 L, BUN/Creatinine Ratio 12.1, Glucose 313 H, Calcium 8.3 L 06/06/22 06:47: POC Glucose 312 H Micro: Microbiology 06/04/22 10:26 Blood Culture (Wb) #2 - Dialysis/Fistula Bacteria Detection (PCR) - Final Staphylococcus epidermidis 06/04/22 10:26 Blood Culture (Wb) #2 - Dialysis/Fistula Blood Culture - Preliminary Staphylococcus epidermidis 06/04/22 13:10 Catheter - Dialysis/Fistula Gram Stain - Final 06/03/22 18:00 Urine, Random Legionella Antigen - Final 06/03/22 18:00 Urine, Random Streptococcus pneumoniae Antigen (M - Final 06/03/22 20:25 Mucosa - Nasopharyngeal Respiratory Panel (PCR) - Final Physical Exam Narrative Const: Alert and oriented. No apparent distress HEENT: oral mucosa moist Cardio: S1, S2, RRR Respiratory: Clear anteriorly and posteriorly, no wheezes, rhonchi rales GI: Abdomen soft, +BS x4 quadrants. Extremities: edema to b/l thighs and legs. Right chest tunneled HD catheter C/D/I. Assessment & Plan Assessment/Plan (1) Acute confusion: (2) SAQIB (acute kidney injury): (3) Chronic kidney disease, stage IV (severe): (4) Anemia: PLAN: Plan - Dialysis requiring SAQIB secondary to ATN. His first dialysis was on May 17, 2022. Patient had poorly functioning/sluggish HD catheter therefore removed on 06/04 and new tunneled HD catheter placed 06/05. Patient underwent and tolerated HD 06/05 over 4 hours, 4 L of fluid removed. Plan for dialysis again today over 4hours and attempt ~4L UF as pt/bp tolerates, no heparin with HD. EDW not reached/established yet. We will continue to monitor for renal recovery. Patient is hypervolemic and likely once volume status improves we will see more accurate creatinine levels. - CKD stage IV with baseline creatinine ranging around 2.3 mg/dL. 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 -Altered mental status resolved and back to baseline. MRI no acute process. Afebrile. WBC normal. UA showed improvement from previous UA. Brain CT no acute pathology. Blood cultures staph epi from first tunneled HD catheter (that tunneled HD catheter removed 06/04 due to not functioning well and new tunneled HD catheter placed 06/05). Peripheral BC pending. Urine cx legionella and strep pneumoniae antigen -Blood pressures acceptable on lopressor, lasix and aldactone - patient has history of chronic anemia and recent history of GI bleed. Hgb trends acceptable. On PPI. -Exacerbation COPD, imrpoving. Receiving IV steroids and breathing treatments. Chest x-ray reviewed, atelectasis versus infiltrate at lung bases - discussed with primary team and discharge planning team. Discharge planning in progress. Family looking into different ECF
[2022-06-06] MEDS: Fluticasone 0.05% 1 SPRAY NASAL.SRY NASAL ×2 (10:01→21:16)
[2022-06-06] MEDS: Menthol/Lanolin/Calamine/Znox 113 GM Tube 1 APPLIC TOPICAL ×3 (10:01→21:16)
[2022-06-06] MEDS: Insulin Glargine-YFGN 100 UNIT/ML Pen 40 UNIT SC (10:02)
[2022-06-06] MEDS: Azelastine HCl NASAL.SRY 1 SPRAY NASAL ×2 (10:02→21:16)
--- NOTE | 2022-06-06 10:58 | PCM.PN.HOSP ---
Documented by User: Jaymie Mcclendon NP, MARKETING PLANNING MANAGER-C 06/06/22 11:07 Subjective Subjective Patient seen and examined. Mental status now at baseline. Alert and oriented. Denies current symptoms or complaints. Objective Data Objective Data Vital Signs: Vital Signs Temp Pulse Resp BP Pulse Ox O2 Del Method O2 Flow Rate 98.2 F 80 18 112/87 H 95 Room Air 1 06/06/22 09:55 06/06/22 09:55 06/06/22 09:55 06/06/22 09:55 06/06/22 10:00 06/06/22 10:00 06/06/22 07:39 FiO2 25 06/06/22 04:05 Oxygen Flow Rate (L/min) 1 Oxygen Delivery Method Room Air Weight: 340 lb 2.772 oz Body Mass Index (BMI) 53.6 Intake & Output: Intake and Output for Last 24 Hours 06/04/22 06/05/22 06/06/22 23:59 23:59 23:59 Intake Total 50 / 50 912.25 / 1092.25 280 / 280 Output Total 0 / 0 0 / 0 Balance 50 / 50 912.25 / 1092.25 280 / 280 Lab / Micro Data Result Diagrams: 06/06/22 03:59 06/06/22 03:59 Labs: Laboratory Results - last 24 hr 06/05/22 06:03: POC Glucose 263 H 06/05/22 11:36: POC Glucose 170 H 06/05/22 13:52: POC Glucose 180 H 06/05/22 16:31: POC Glucose 298 H 06/05/22 21:16: POC Glucose 339 H 06/06/22 03:59: WBC 6.9, RBC 2.85 L, Hgb 8.5 L, Hct 28.1 L, MCV 98.6 H, MCH 29.8, MCHC 30.2 L, RDW Std Deviation 58.0 H, RDW Coeff of Petty 16.3 H, Plt Count 118 L, MPV 10.1, Immature Gran % (Auto) 0.600, Neut % (Auto) 89.0 H, Lymph % (Auto) 4.3 L, [place] % (Auto) 6.1, Eos % (Auto) 0.0, Baso % (Auto) 0.0, Absolute Neuts (auto) 6.2, Absolute Lymphs (auto) 0.30 L, Nucleated RBC % 0, Differential Comment SCANNED 06/06/22 03:59: Sodium 132 L, Potassium 4.8, Chloride 95 L, Carbon Dioxide 29.0, Anion Gap 8, BUN 39 H, Creatinine 3.22 H, Estim Creat Clear Calc 17.68, Est GFR (MDRD) Af Amer 24 L, Est GFR (MDRD) Non-Af 20 L, BUN/Creatinine Ratio 12.1, Glucose 313 H, Calcium 8.3 L 06/06/22 06:47: POC Glucose 312 H Micro: Microbiology 06/04/22 10:26 Blood Culture (Wb) #2 - Dialysis/Fistula Bacteria Detection (PCR) - Final Staphylococcus epidermidis 06/04/22 10:26 Blood Culture (Wb) #2 - Dialysis/Fistula Blood Culture - Preliminary Staphylococcus epidermidis 06/04/22 13:10 Catheter - Dialysis/Fistula Gram Stain - Final 06/03/22 18:00 Urine, Random Legionella Antigen - Final 06/03/22 18:00 Urine, Random Streptococcus pneumoniae Antigen (M - Final 06/03/22 20:25 Mucosa - Nasopharyngeal Respiratory Panel (PCR) - Final Physical Exam Const alert, oriented x3 and no apparent distress Orientation / Consciousness: awake, oriented to person, oriented to place and oriented to time HEENT normocephalic and moist oral mucous membranes Eyes PERRL, EOMs intact bilaterally and conjunctivae normal Neck no lymphadenopathy Resp clear to auscultation bilaterally Auscultation: diminished lung sounds Cardio regular rate, regular rhythm and no murmurs Peripheral Pulses: pulses 2+ throughout GI normal to inspection, nondistended, normoactive bowel sounds, non-tender and non-distended Extremity normal to inspection General Extremity: edema bilateral lower extremity Skin no rashes or lesions noted Skin Narrative: Bilateral lower extremity venous stasis wounds/skin changes Lesions: no lesions Rashes: no rashes Trauma: no lacerations or abrasions Neuro CN's II-XII intact bilaterally, no focal motor deficits, no sensory deficits noted and deep tendon reflexes 2+ bilaterally Psych mental status grossly normal and affect normal Assessment & Plan Assessment/Plan (1) Acute confusion: PLAN: Plan 1.? Acute hypoxic respiratory failure secondary to acute exacerbation of chronic COPD and acute on chronic heart failure with preserved ejection fraction, complicated by stage IV chronic kidney disease-initially on BiPAP.? Oxygen now stable on room air. 2.? Acute exacerbation of chronic COPD-transition to prednisone burst.? Albuterol and DuoNeb aerosols.? 3. Acute on chronic heart failure with preserved ejection fraction-torsemide and spironolactone initially held due to hypotension.? Patient to undergo additional dialysis today.? Repeat chest x-ray with improvement in CHF.? Continue home diuretic regimen. 4. Acute encephalopathy-metabolic secondary to #1/2/#3.? MRI without stroke.? Noted likely chronic ischemic changes. Encephalopathy now resolved. 5. Chronic kidney disease stage IV-nephrology consulted.? Underwent tunneled dialysis catheter replacement 06/05/2022.? History of chronic kidney disease stage IIIb however recently worsened due to hemorrhagic shock. 6. Chronic atrial fibrillation-anticoagulation on hold due to recent GI bleed.? Continue metoprolol. 7. Chronic heart failure with preserved ejection fraction-no exacerbation. On torsemide, spironolactone. 8. Anemia of chronic disease-hemoglobin reduced from baseline due to recent GI bleed.? Trend CBC. 9. Type 2 diabetes mellitus with neuropathy-oral regimen on hold.? Accu-Cheks with sliding scale insulin.? Continue home insulin regimen. 10. Hypertension-continue current regimen. 11. Hyperlipidemia-continue statin. 12. GERD with recent GI bleed-on PPI, Carafate. 13. Chronic bilateral lower extremity venous stasis wounds-wound RN consulted. 14. Morbid obesity- weight loss encouraged. 15. Probable ANTHONY-recommend outpatient sleep study. DVT prophylaxis-SCDs Discharge planning: Awaiting facility/insurance acceptance for SNF. This patient was seen by CHESTER Mcqueen under the supervision of Dr. Calvo. Documented by User: Dr. Maynor Calvo MD 06/06/22 11:45 Objective Data Lab / Micro Data Result Diagrams: 06/06/22 03:59 06/06/22 03:59 Assessment & Plan Assessment/Plan (1) Acute confusion: Addt'l Comments This patient was seen in conjunction with CHESTER Mcqueen .? I have independently interviewed and examined the patient and reviewed pertinent historical, laboratory, and other data.? Please refer to CHESTER Mcqueen? note for details of this patient's presentation, findings, and recommendations.? I have reviewed? CHESTER Mcqueen ? note and concur? with documented findings. In brief, patient Patient is an 76-year-old gentleman resident at an extended care facility brought in with increasing confusion 06/05/2022; patient seen scheduled to undergo dialysis catheter placement.? Still remains confused and lethargic 06/06/2022; patient seen much more awake and interactive. Back to his baseline. Plan is for patient to be discharged to ECF. (Patient wants to go to a different ECF on discharge) Physical Examination: GENERAL: Patient is frail looking HEENT: Atraumatic; EYES; Anicteric, Normal Conjunctiva NECK; supple, normal thyroid, RESPIRATORY: Diminished to auscultation CARDIOVASCULAR:? Regular S1 S2, GI:? soft, normoactive bowel sounds, : No Renal angle tenderness; EXTREMITIES: Bilateral lower extremity stasis dermatitis MUSCULOSKELETAL:? no muscle wasting NEURO:? Awake;? no lateralizing signs. SKIN:?As described above PSYCH; Flat? affect Assessment: 1.? Acute metabolic encephalopathy 2.? End-stage renal disease on hemodialysis 3.? Chronic A. fib 4.? GERD 5.? Essential hypertension (BP meds on hold in view of relative hypotension) 6.? Class III obesity with BMI of 54.1 7.? Chronic diastolic congestive heart failure 8.? Dyslipidemia 9.? Diabetes mellitus type 2 10.? DVT prophylaxis Recommendations: 1.? I have discussed the results of my overview and impressions with the patient 2.? Options for management were reviewed Total time spent by myself and the advanced practice practitioner evaluating patient, reviewing labs, subsequent management decisions, discussion with patient as well as other providers 40 minutes ( 25 of which was spent by myself) Charges/Coding Visit Charges Inpatient E&M: 17257 Subs Hosp L2
--- NOTE | 2022-06-06 11:15 | CASEMGMT ---
SW received an email from [facility] and they are not able to accept patient. SW called patient's son and notified him. Junior asked SW to try [facility]. Locally he said [facility] and [facility] would be okay too. [facility] would also be okay. He also said if patient has to go to [facility] then that is fine. Patient and Junior continue to state patient will not return to [facility]. DARIO called [facility] to check on transport from [facility] to [place] for dialysis. They would not be able to transport from [facility]. They actually would not be able to do [facility] to [facility] [place] either now as they had a hyster driver quit. DARIO called [facility] and they cannot transport patient so they would not be able to accept. DARIO contacted [facility] and they do transport to and from dialysis. DARIO explained situation and faxed referral. Simi Samuels CODING ADVISOR SVETLANA
--- NOTE | 2022-06-06 11:26 | CASEMGMT ---
Pt may need to go to a SNF in [place] and this RN CM placed call x2 without success to nurse at [facility] to see if they would have a tentative chair time so that SNF's can be notified. Pt is already with [facility] so he would just need to be transferred to [place] clinic. Message left for nurse to call this RN BAILEE back. SStaten JONATHON MOROCHO
[2022-06-06 11:45] LABS: Bedside Glucose 396 mg/dL (74-106)
--- NOTE | 2022-06-06 12:39 | PN.SURG_ITS ---
Subjective Subjective Patient is doing well we will much more awake and alert since getting dialysis yesterday. Objective Data Objective Data Vital Signs: Vital Signs Temp Pulse Resp BP Pulse Ox O2 Del Method O2 Flow Rate 98.2 F 88 18 112/87 H 95 Room Air 1 06/06/22 09:55 06/06/22 11:46 06/06/22 11:46 06/06/22 09:55 06/06/22 10:00 06/06/22 10:00 06/06/22 07:39 FiO2 25 06/06/22 04:05 Oxygen Flow Rate (L/min) 1 Oxygen Delivery Method Room Air Weight: 340 lb 2.772 oz Body Mass Index (BMI) 53.6 Intake & Output: Intake and Output for Last 24 Hours 06/04/22 06/05/22 06/06/22 23:59 23:59 23:59 Intake Total 50 / 50 912.25 / 1092.25 620 / 620 Output Total 0 / 0 0 / 0 Balance 50 / 50 912.25 / 1092.25 620 / 620 Lab / Micro Data Result Diagrams: 06/06/22 03:59 06/06/22 03:59 Labs: Laboratory Results - last 24 hr 06/05/22 13:52: POC Glucose 180 H 06/05/22 16:31: POC Glucose 298 H 06/05/22 21:16: POC Glucose 339 H 06/06/22 03:59: WBC 6.9, RBC 2.85 L, Hgb 8.5 L, Hct 28.1 L, MCV 98.6 H, MCH 29.8, MCHC 30.2 L, RDW Std Deviation 58.0 H, RDW Coeff of Petty 16.3 H, Plt Count 118 L, MPV 10.1, Immature Gran % (Auto) 0.600, Neut % (Auto) 89.0 H, Lymph % (Auto) 4.3 L, [place] % (Auto) 6.1, Eos % (Auto) 0.0, Baso % (Auto) 0.0, Absolute Neuts (auto) 6.2, Absolute Lymphs (auto) 0.30 L, Nucleated RBC % 0, Differential Comment SCANNED 06/06/22 03:59: Sodium 132 L, Potassium 4.8, Chloride 95 L, Carbon Dioxide 29.0, Anion Gap 8, BUN 39 H, Creatinine 3.22 H, Estim Creat Clear Calc 17.68, Est GFR (MDRD) Af Amer 24 L, Est GFR (MDRD) Non-Af 20 L, BUN/Creatinine Ratio 12.1, Glucose 313 H, Calcium 8.3 L 06/06/22 06:47: POC Glucose 312 H 06/06/22 11:15: POC Glucose 396 H Micro: Microbiology 06/04/22 10:26 Blood Culture (Wb) #2 - Dialysis/Fistula Bacteria Detection (PCR) - Final Staphylococcus epidermidis 06/04/22 10:26 Blood Culture (Wb) #2 - Dialysis/Fistula Blood Culture - Preliminary Staphylococcus epidermidis 06/04/22 13:10 Catheter - Dialysis/Fistula Gram Stain - Final 06/03/22 18:00 Urine, Random Legionella Antigen - Final 06/03/22 18:00 Urine, Random Streptococcus pneumoniae Antigen (M - Final 06/03/22 20:25 Mucosa - Nasopharyngeal Respiratory Panel (PCR) - Final Physical Exam Narrative Right IJ tunneled dialysis catheter in place and dressed. Assessment & Plan Assessment/Plan (1) Encounter for dialysis catheter care: PLAN: Plan Patient is doing well no issues with the catheter during dialysis yesterday. Follow-up as needed. Dulce Maria Kathleen M.D. Pager: [phone] [facility] [address] [place] [address], [facility], [address] [place] [id number] Office: [phone]
--- NOTE | 2022-06-06 13:22 | CASEMGMT ---
DARIO called Adriana at [facility] and left her a voice mail updating her on current situation with patient. DARIO also called [facility] and they are still looking at referral. Simi Samuels ELECTRIC LINEMAN SVETLANA
--- NOTE | 2022-06-06 13:35 | CASEMGMT ---
RN CM NOTE: Call to Carri, clinical infrastructure project manager @ [facility], to inquire about tentative chair time, if pt would discharge to [facility]. Per Carri, she is not able to give a tentative chair time at this time. [facility]: [phone].
--- NOTE | 2022-06-06 14:07 | CASEMGMT ---
DARIO called [facility] regarding referral and also faxed it to [facility]. DARIO called [facility], but they do not transport patients to dialysis. Simi Samuels REFRIGERATION PLANT CORK INSULATOR SVETLANA
--- NOTE | 2022-06-06 14:58 | CASEMGMT ---
[facility] called SW back and they are unable to accept patient. DARIO called [facility] as they contacted SW the other day and said they were working on transportation for patient. DARIO told her to disregard the referral and she said if anything changes to re-send the referral. DARIO called [facility] and the regular admissions person is not there today. DARIO let this individual know SW is re-faxing the referral. Simi Samuels LEATHER ROLLER SVETLANA
--- NOTE | 2022-06-06 16:24 | CASEMGMT ---
DARIO called patient's son and left him a voice mail letting him know [facility] is a no and that DARIO sent referrals to [facility] and [facility]. DARIO will follow up with him on Thursday. DARIO also updated patient. Simi Samuels STATE EDITOR SVETLANA
[2022-06-06 17:00] LABS: Bedside Glucose 270 mg/dL (74-106)
--- NOTE | 2022-06-06 17:19 | DIALYSIS ---
Hemodialysis x 4hrs today. UF -4000mL removed. pt tolerated tx well. Pt stable. Report to JONATHON James
[2022-06-06] MEDS: Multivitamins,Therapeutic Tablet 1 TABLET PO (17:35)
[2022-06-06] MEDS: Metoprolol Tartrate 50 MG Tablet PO ×2 (17:35→21:17)
[2022-06-06] MEDS: Pantoprazole Sodium 40 MG Tablet PO ×2 (17:35→21:18)
[2022-06-06] MEDS: Ezetimibe 10 MG Tablet PO (17:35)
[2022-06-06] MEDS: Furosemide 40 MG Tablet PO (17:35)
[2022-06-06] MEDS: Cholecalciferol (VIT D3) 25 MCG TABLET (1,000 UNITS) 50 MCG PO (17:35)
[2022-06-06] MEDS: Spironolactone 25 MG Tablet PO (17:36)
[2022-06-06] MEDS: Loratadine 10 MG Tablet PO (17:36)
[2022-06-06] MEDS: Vitamin B Comp W-C Capsule 1 CAP PO (17:36)
[2022-06-06] MEDS: Pravastatin 40 MG Tablet PO (21:17)
[2022-06-06] MEDS: QUEtiapine 25 MG Tablet 12.5 MG PO (21:18)
[2022-06-06 22:15] LABS: Bedside Glucose 231 mg/dL (74-106)
[2022-06-06] MEDS: guaiFENesin 10 ML UDC (200MG/10ML) 20 ML PO (22:52)
[2022-06-06] MEDS: Acetaminophen 325 MG Tablet 650 MG PO (22:55)
[2022-06-07] VITALS (17 sets, daily range): BP systolic 118–151; BP diastolic 58–84; PULSE 70–90; RESP 14–22; TEMP 36.5–36.9; O2SAT 92–99
[2022-06-07] MEDS: Gabapentin 100 MG Capsule PO ×3 (06:28→21:56)
[2022-06-07] MEDS: Sucralfate 1 GM Tablet PO ×2 (06:30→16:32)
[2022-06-07] MEDS: Ipratropium/Albuterol Sulfate 3 ML AMPUL.NEB INHALATION ×4 (07:06→23:36)
--- NOTE | 2022-06-07 08:41 | PCM.PN.REN ---
Subjective Subjective Sitting in chair eating breakfast. No overnight events. Denies any complaints. States tolerated dialysis yesterday with no cramping. Objective Data Objective Data Vital Signs: Vital Signs Temp Pulse Resp BP Pulse Ox O2 Del Method O2 Flow Rate 97.7 F L 87 22 H 118/74 94 Room Air 1 06/07/22 03:02 06/07/22 07:44 06/07/22 07:30 06/07/22 03:02 06/07/22 07:30 06/07/22 07:30 06/06/22 07:39 FiO2 21 06/07/22 04:50 Oxygen Flow Rate (L/min) 1 Oxygen Delivery Method Room Air Weight: 152 kg Body Mass Index (BMI) 53.6 Intake & Output: Intake and Output for Last 24 Hours 06/05/22 06/06/22 06/07/22 23:59 23:59 23:59 Intake Total 912.25 / 1092.25 860 / 1260 520 / 520 Output Total 4000 / 4000 4000 / 4000 Balance -3087.75 / -2907.75 -3140 / -2740 520 / 520 Lab / Micro Data Result Diagrams: 06/06/22 03:59 06/06/22 03:59 Labs: Laboratory Results - last 24 hr 06/06/22 11:15: POC Glucose 396 H 06/06/22 16:38: POC Glucose 270 H 06/06/22 21:13: POC Glucose 231 H Micro: Microbiology 06/04/22 10:26 Blood Culture (Wb) #2 - Dialysis/Fistula Bacteria Detection (PCR) - Final Staphylococcus epidermidis 06/04/22 10:26 Blood Culture (Wb) #2 - Dialysis/Fistula Blood Culture - Final Staphylococcus epidermidis 06/04/22 13:10 Catheter - Dialysis/Fistula Gram Stain - Final 06/03/22 18:00 Urine, Random Legionella Antigen - Final 06/03/22 18:00 Urine, Random Streptococcus pneumoniae Antigen (M - Final 06/03/22 20:25 Mucosa - Nasopharyngeal Respiratory Panel (PCR) - Final Physical Exam Narrative Const: Alert and oriented. No apparent distress HEENT: oral mucosa moist Cardio: S1, S2, RRR Respiratory: Clear anteriorly and posteriorly, no wheezes, rhonchi rales GI: Abdomen soft, +BS x4 quadrants. Extremities: edema to b/l thighs and legs. Right chest tunneled HD catheter C/D/I. Assessment & Plan Assessment/Plan (1) Acute confusion: (2) SAQIB (acute kidney injury): (3) Chronic kidney disease, stage IV (severe): (4) Anemia: PLAN: Plan - Dialysis requiring SAQIB secondary to ATN. His first dialysis was on May 17, 2022. Patient had poorly functioning/sluggish HD catheter therefore removed on 06/04 and new tunneled HD catheter placed 06/05. Patient underwent and tolerated HD 06/05 and again 06/06 over 4 hours, 4 L of fluid removed. No acute indication for CHIEF RESOURCE OFFICER today. Plan for dialysis Thursday over 4hours and attempt ~4L UF as pt/bp tolerates, no heparin with HD. EDW not reached/established yet. We will continue to monitor for renal recovery. Patient is hypervolemic and likely once volume status improves we will see more accurate creatinine levels. - CKD stage IV with baseline creatinine ranging around 2.3 mg/dL. 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 -Altered mental status resolved and back to baseline. MRI no acute process. Afebrile. WBC normal. UA showed improvement from previous UA. Brain CT no acute pathology. Blood cultures staph epi from first tunneled HD catheter (that tunneled HD catheter removed 06/04 due to not functioning well and new tunneled HD catheter placed 06/05). Peripheral BC pending. Urine cx legionella and strep pneumoniae antigen -Blood pressures acceptable on lopressor, lasix and aldactone - patient has history of chronic anemia and recent history of GI bleed. Hgb trends acceptable. On PPI. -Exacerbation COPD, improving. Receiving IV steroids and breathing treatments. Chest x-ray reviewed, atelectasis versus infiltrate at lung bases - discussed with primary team and discharge planning team. Discharge planning in progress. Family looking into different ECF
[2022-06-07 08:46] LABS: Bedside Glucose 142 mg/dL (74-106)
[2022-06-07] MEDS: Furosemide 40 MG Tablet PO (09:33)
[2022-06-07] MEDS: Metoprolol Tartrate 50 MG Tablet PO ×2 (09:33→21:55)
[2022-06-07] MEDS: Menthol/Lanolin/Calamine/Znox 113 GM Tube 1 APPLIC TOPICAL ×4 (09:33→21:55)
[2022-06-07] MEDS: Cholecalciferol (VIT D3) 25 MCG TABLET (1,000 UNITS) 50 MCG PO (09:34)
[2022-06-07] MEDS: Spironolactone 25 MG Tablet PO (09:34)
[2022-06-07] MEDS: Ezetimibe 10 MG Tablet PO (09:34)
[2022-06-07] MEDS: Vitamin B Comp W-C Capsule 1 CAP PO (09:34)
[2022-06-07] MEDS: Pantoprazole Sodium 40 MG Tablet PO ×2 (09:34→21:55)
[2022-06-07] MEDS: Multivitamins,Therapeutic Tablet 1 TABLET PO (09:34)
[2022-06-07] MEDS: predniSONE 20 MG Tablet 40 MG PO (09:34)
[2022-06-07] MEDS: Azelastine HCl NASAL.SRY 1 SPRAY NASAL ×2 (09:36→21:55)
[2022-06-07] MEDS: Fluticasone 0.05% 1 SPRAY NASAL.SRY NASAL ×2 (09:37→21:54)
[2022-06-07] MEDS: Acetaminophen 325 MG Tablet 650 MG PO ×2 (09:42→13:51)
--- NOTE | 2022-06-07 11:02 | CASEMGMT ---
JONATHON CM NOTE: Script for OP PT received from Dr Isaac/ Dx: Lt cervical radiculopathy. Script provided to pt at this time and instructed on use. She denies having any further discharge needs or concerns. Naseem OROZCON RN CM
--- NOTE | 2022-06-07 11:14 | PCM.PN.HOSP ---
Documented by User: Jaymie Mcclendon NP, NOC ENGINEER-C 06/07/22 11:18 Subjective Subjective Patient seen and examined. Alert and oriented. No acute events overnight. Denies current symptoms or complaints. Objective Data Objective Data Vital Signs: Vital Signs Temp Pulse Resp BP Pulse Ox O2 Del Method O2 Flow Rate 98.4 F 90 18 133/58 H 96 Room Air 1 06/07/22 09:23 06/07/22 09:33 06/07/22 09:23 06/07/22 09:33 06/07/22 09:23 06/07/22 09:48 06/06/22 07:39 FiO2 21 06/07/22 04:50 Oxygen Flow Rate (L/min) 1 Oxygen Delivery Method Room Air Weight: 335 lb 1.642 oz Body Mass Index (BMI) 53.6 Intake & Output: Intake and Output for Last 24 Hours 06/05/22 06/06/22 06/07/22 23:59 23:59 23:59 Intake Total 912.25 / 1092.25 860 / 1260 520 / 520 Output Total 4000 / 4000 4000 / 4000 Balance -3087.75 / -2907.75 -3140 / -2740 520 / 520 Lab / Micro Data Result Diagrams: 06/06/22 03:59 06/06/22 03:59 Labs: Laboratory Results - last 24 hr 06/06/22 11:15: POC Glucose 396 H 06/06/22 16:38: POC Glucose 270 H 06/06/22 21:13: POC Glucose 231 H 06/07/22 06:28: POC Glucose 142 H Micro: Microbiology 06/04/22 10:26 Blood Culture (Wb) #2 - Dialysis/Fistula Bacteria Detection (PCR) - Final Staphylococcus epidermidis 06/04/22 10:26 Blood Culture (Wb) #2 - Dialysis/Fistula Blood Culture - Final Staphylococcus epidermidis 06/04/22 13:10 Catheter - Dialysis/Fistula Gram Stain - Final 06/03/22 18:00 Urine, Random Legionella Antigen - Final 06/03/22 18:00 Urine, Random Streptococcus pneumoniae Antigen (M - Final 06/03/22 20:25 Mucosa - Nasopharyngeal Respiratory Panel (PCR) - Final Physical Exam Const alert, oriented x3 and no apparent distress Orientation / Consciousness: awake, oriented to person, oriented to place and oriented to time Nutritional Appearance: obese HEENT normocephalic and moist oral mucous membranes Eyes PERRL, EOMs intact bilaterally and conjunctivae normal Neck no lymphadenopathy Resp normal respiratory effort and clear to auscultation bilaterally Cardio regular rate, regular rhythm and no murmurs Peripheral Pulses: pulses 2+ throughout GI normal to inspection, nondistended, normoactive bowel sounds, non-tender and non-distended Extremity normal to inspection Skin no rashes or lesions noted Skin Narrative: Bilateral lower extremity venous stasis wounds/skin changes Lesions: no lesions Rashes: no rashes Trauma: no lacerations or abrasions Neuro CN's II-XII intact bilaterally, no focal motor deficits, no sensory deficits noted and deep tendon reflexes 2+ bilaterally Psych mental status grossly normal and affect normal Assessment & Plan Assessment/Plan (1) Acute confusion: PLAN: Plan 1.? Acute hypoxic respiratory failure secondary to acute exacerbation of chronic COPD and acute on chronic heart failure with preserved ejection fraction, complicated by stage IV chronic kidney disease-initially on BiPAP.? Oxygen now stable on room air. 2.? Acute exacerbation of chronic COPD-transitioned to prednisone burst.? Albuterol and DuoNeb aerosols.? 3. Acute on chronic heart failure with preserved ejection fraction-torsemide and spironolactone initially held due to hypotension.? Continue dialysis.? Repeat chest x-ray with improvement in CHF.? Continue home diuretic regimen. 4. Acute encephalopathy-metabolic secondary to #1/2/#3.? MRI without stroke.? Noted likely chronic ischemic changes.? Encephalopathy now resolved. 5. Chronic kidney disease stage IV-nephrology consulted.? Underwent tunneled dialysis catheter replacement 06/05/2022.? History of chronic kidney disease stage IIIb however recently worsened due to hemorrhagic shock. Continue dialysis as scheduled. 6. Chronic atrial fibrillation-anticoagulation on hold due to recent GI bleed.? Continue metoprolol. Will discuss with GI anticoagulation for stroke prevention. 7. Chronic heart failure with preserved ejection fraction-no exacerbation. On torsemide, spironolactone. 8. Anemia of chronic disease-hemoglobin reduced from baseline due to recent GI bleed.? Trend CBC. 9. Type 2 diabetes mellitus with neuropathy-oral regimen on hold.? Accu-Cheks with sliding scale insulin.? Continue home insulin regimen. 10. Hypertension-continue current regimen. 11. Hyperlipidemia-continue statin. 12. GERD with recent GI bleed-on PPI, Carafate. 13. Chronic bilateral lower extremity venous stasis wounds-wound RN consulted. 14. Morbid obesity- weight loss encouraged. 15.? Probable ANTHONY-recommend outpatient sleep study. DVT prophylaxis-SCDs Discharge planning: Awaiting facility/insurance acceptance for SNF. This patient was seen by CHESTER Mcqueen under the supervision of Dr. Calvo. Documented by User: Dr. Maynor Calvo MD 06/07/22 12:47 Objective Data Lab / Micro Data Result Diagrams: 06/06/22 03:59 06/06/22 03:59 Assessment & Plan Assessment/Plan (1) Acute confusion: Addt'l Comments This patient was seen in conjunction with CHESTER Mcqueen .? I have independently interviewed and examined the patient and reviewed pertinent historical, laboratory, and other data.? Please refer to CHESTER Mcqueen? note for details of this patient's presentation, findings, and recommendations.? I have reviewed? CHESTER Mcqueen ? note and concur? with documented findings. In brief, patient Patient is an 76-year-old gentleman resident at an extended care facility brought in with increasing confusion 06/05/2022; patient seen scheduled to undergo dialysis catheter placement.? Still remains confused and lethargic 06/06/2022; patient seen much more awake and interactive.? Back to his baseline.? Plan is for patient to be discharged to ECF.? (Patient wants to go to a different ECF on discharge) 06/07/2022; awaiting transfer to SNF Physical Examination: GENERAL: Patient is frail looking HEENT: Atraumatic; EYES; Anicteric, Normal Conjunctiva NECK; supple, normal thyroid, RESPIRATORY: Diminished to auscultation CARDIOVASCULAR:? Regular S1 S2, GI:? soft, normoactive bowel sounds, : No Renal angle tenderness; EXTREMITIES: Bilateral lower extremity stasis dermatitis MUSCULOSKELETAL:? no muscle wasting NEURO:? Awake;? no lateralizing signs. SKIN:?As described above PSYCH; Flat? affect Assessment: 1.? Acute metabolic encephalopathy 2.? End-stage renal disease on hemodialysis 3.? Chronic A. fib 4.? GERD 5.? Essential hypertension (BP meds on hold in view of relative hypotension) 6.? Class III obesity with BMI of 54.1 7.? Chronic diastolic congestive heart failure 8.? Dyslipidemia 9.? Diabetes mellitus type 2 10.? DVT prophylaxis Recommendations: 1.? I have discussed the results of my overview and impressions with the patient 2.? Options for management were reviewed Total time spent by myself and the advanced practice practitioner evaluating patient, reviewing labs, subsequent management decisions, discussion with patient as well as other providers 40 minutes ( 25 of which was spent by myself) Charges/Coding Visit Charges Inpatient E&M: 44533 Subs Hosp L2
[2022-06-07] MEDS: guaiFENesin 10 ML UDC (200MG/10ML) 20 ML PO (11:24)
[2022-06-07] MEDS: Insulin Lispro 100 UNIT/ML INSULN.PEN SC ×3 (11:25→21:53)
[2022-06-07] MEDS: Insulin Glargine-YFGN 100 UNIT/ML Pen 40 UNIT SC (11:26)
[2022-06-07 11:55] LABS: Bedside Glucose 232 mg/dL (74-106)
[2022-06-07 16:55] LABS: Bedside Glucose 381 mg/dL (74-106)
--- NOTE | 2022-06-07 21:45 | NURSING ---
Patient able to use walker to get to toilet, patient spirits lifted and tickled pink that he felt great after he was able to walk to bathroom. Pulse ox 98% just after back to bed on room air.
[2022-06-07] MEDS: Pravastatin 40 MG Tablet PO (21:55)
[2022-06-07] MEDS: QUEtiapine 25 MG Tablet 12.5 MG PO (21:55)
[2022-06-07 22:25] LABS: Bedside Glucose 372 mg/dL (74-106)
[2022-06-08] VITALS (19 sets, daily range): BP systolic 115–150; BP diastolic 56–90; PULSE 70–94; RESP 14–20; TEMP 36.3–36.8; O2SAT 93–100
[2022-06-08] MEDS: Gabapentin 100 MG Capsule PO ×3 (06:07→22:03)
[2022-06-08] MEDS: Acetaminophen 325 MG Tablet 650 MG PO ×2 (06:07→15:13)
[2022-06-08] MEDS: Sucralfate 1 GM Tablet PO ×2 (06:07→16:13)
[2022-06-08] MEDS: Insulin Lispro 100 UNIT/ML INSULN.PEN SC ×4 (06:12→21:58)
[2022-06-08 06:22] LABS: Absolute Neutrophil Count 4.5 X10^3/uL (2.0-7.7); Eosinophil# 0.01 X10^3/uL; Eosinophils% 0.2 % (0-5); Hematocrit 28.7 % (40-54); Hemoglobin 8.8 g/dL (13.0-16.5); Lymphocyte % 11.8 % (19-41); Mean Corp Hgb Conc 30.7 g/dL (32-36); Mean Corpuscular Hgb 29.9 pg (27.0-32.0); Mean Corpuscular Volume 97.6 fL (80-94); Mean Platelet Vol. 10.6 fl (6.2-12.0); Monocyte# 0.73 X10^3/uL; Monocyte% 12.4 % (0-10); NRBC Flagged by Analyzer 0 % (0-5); Neutrophil # 4.45 X10^3/uL (2.7-7.7); Neutrophil % 75.3 % (47-70); Platelet Count 103 K/mm3 (150-450); RBC Distribution Width CV 15.7 % (11.6-14.6); RBC Distribution Width SD 55.4 fl (35.1-43.9); Red Blood Count 2.94 M/mm3 (4.6-6.2); White Blood Count 5.9 K/mm3 (4.4-11.0)
[2022-06-08 06:51] LABS: Bedside Glucose 296 mg/dL (74-106)
[2022-06-08 06:52] LABS: Anion Gap 8 (5-15); BUN 64 mg/dL (7-18); BUN/Creat Ratio 17.4 RATIO (10-20); Calcium,Total 8.3 mg/dL (8.5-10.1); Chloride 97 mmol/L (98-107); Creatinine, Serum 3.67 mg/dL (0.70-1.30); EST Glomerular Filtration Rate 17 mL/min (>60); Est Glom Filt Rate - Afr Amer 21 mL/min (>60); Estimated Creatinine Clearance 15.51 ml/min; Glucose 285 mg/dL (74-106); Potassium 4.1 mmol/L (3.5-5.1); Sodium Level 131 mmol/L (136-145)
[2022-06-08] MEDS: Ipratropium/Albuterol Sulfate 3 ML AMPUL.NEB INHALATION ×4 (07:28→19:47)
[2022-06-08] MEDS: Multivitamins,Therapeutic Tablet 1 TABLET PO (09:12)
[2022-06-08] MEDS: predniSONE 20 MG Tablet 40 MG PO (09:12)
[2022-06-08] MEDS: Cholecalciferol (VIT D3) 25 MCG TABLET (1,000 UNITS) 50 MCG PO (09:12)
[2022-06-08] MEDS: Furosemide 40 MG Tablet PO (09:12)
[2022-06-08] MEDS: Vitamin B Comp W-C Capsule 1 CAP PO (09:12)
[2022-06-08] MEDS: Pantoprazole Sodium 40 MG Tablet PO ×2 (09:13→21:57)
[2022-06-08] MEDS: Spironolactone 25 MG Tablet PO (09:13)
[2022-06-08] MEDS: Metoprolol Tartrate 50 MG Tablet PO ×2 (09:13→21:57)
[2022-06-08] MEDS: Ezetimibe 10 MG Tablet PO (09:13)
[2022-06-08] MEDS: Fluticasone 0.05% 1 SPRAY NASAL.SRY NASAL ×2 (09:15→21:56)
[2022-06-08] MEDS: Azelastine HCl NASAL.SRY 1 SPRAY NASAL ×2 (09:16→21:56)
[2022-06-08] MEDS: Menthol/Lanolin/Calamine/Znox 113 GM Tube 1 APPLIC TOPICAL ×4 (09:18→22:03)
--- NOTE | 2022-06-08 11:21 | PCM.PN.HOSP ---
Documented by User: Jaymie Mcclendon NP, CUMULATIVE EFFECTS ANALYST-C 06/08/22 11:46 Subjective Subjective Patient seen and examined. Alert and oriented. Patient feels he is getting stronger. Denies current symptoms or complaints. Objective Data Objective Data Vital Signs: Vital Signs Temp Pulse Resp BP Pulse Ox O2 Del Method O2 Flow Rate 97.3 F L 89 18 115/56 L 95 Room Air 1 06/08/22 09:07 06/08/22 09:13 06/08/22 09:07 06/08/22 09:13 06/08/22 09:58 06/08/22 09:58 06/06/22 07:39 FiO2 21 06/08/22 02:47 Oxygen Flow Rate (L/min) 1 Oxygen Delivery Method Room Air Weight: 335 lb 12.224 oz Body Mass Index (BMI) 53.6 Intake & Output: Intake and Output for Last 24 Hours 06/06/22 06/07/22 06/08/22 23:59 23:59 23:59 Intake Total 860 / 1260 1500 / 1740 360 / 360 Output Total 4000 / 4000 Balance -3140 / -2740 1500 / 1740 360 / 360 Lab / Micro Data Result Diagrams: 06/08/22 05:15 06/08/22 05:15 Labs: Laboratory Results - last 24 hr 06/07/22 11:23: POC Glucose 232 H 06/07/22 16:30: POC Glucose 381 H 06/07/22 21:52: POC Glucose 372 H 06/08/22 05:15: WBC 5.9, RBC 2.94 L, Hgb 8.8 L, Hct 28.7 L, MCV 97.6 H, MCH 29.9, MCHC 30.7 L, RDW Std Deviation 55.4 H, RDW Coeff of Petty 15.7 H, Plt Count 103 L, MPV 10.6, Immature Gran % (Auto) 0.300, Neut % (Auto) 75.3 H, Lymph % (Auto) 11.8 L, [place] % (Auto) 12.4 H, Eos % (Auto) 0.2, Baso % (Auto) 0.0, Absolute Neuts (auto) 4.5, Absolute Lymphs (auto) 0.70 L, Nucleated RBC % 0 06/08/22 05:15: Sodium 131 L, Potassium 4.1, Chloride 97 L, Carbon Dioxide 26.0, Anion Gap 8, BUN 64 H, Creatinine 3.67 H, Estim Creat Clear Calc 15.51, Est GFR (MDRD) Af Amer 21 L, Est GFR (MDRD) Non-Af 17 L, BUN/Creatinine Ratio 17.4, Glucose 285 H, Calcium 8.3 L 06/08/22 06:11: POC Glucose 296 H Micro: Microbiology 06/04/22 10:26 Blood Culture (Wb) #2 - Dialysis/Fistula Bacteria Detection (PCR) - Final Staphylococcus epidermidis 06/04/22 10:26 Blood Culture (Wb) #2 - Dialysis/Fistula Blood Culture - Final Staphylococcus epidermidis 06/04/22 13:10 Catheter - Dialysis/Fistula Gram Stain - Final 06/03/22 18:00 Urine, Random Legionella Antigen - Final 06/03/22 18:00 Urine, Random Streptococcus pneumoniae Antigen (M - Final 06/03/22 20:25 Mucosa - Nasopharyngeal Respiratory Panel (PCR) - Final Physical Exam Const alert and oriented x3 Orientation / Consciousness: awake, oriented to person, oriented to place and oriented to time Nutritional Appearance: obese HEENT normocephalic and moist oral mucous membranes Eyes PERRL, EOMs intact bilaterally and conjunctivae normal Neck no lymphadenopathy Resp normal respiratory effort and clear to auscultation bilaterally Cardio regular rate, regular rhythm and no murmurs Peripheral Pulses: pulses 2+ throughout GI normal to inspection, nondistended, normoactive bowel sounds, non-tender and non-distended Extremity normal to inspection Skin no rashes or lesions noted Skin Narrative: Bilateral lower extremity venous stasis wounds/skin changes Lesions: no lesions Rashes: no rashes Trauma: no lacerations or abrasions Neuro CN's II-XII intact bilaterally, no focal motor deficits, no sensory deficits noted and deep tendon reflexes 2+ bilaterally Psych mental status grossly normal and affect normal Assessment & Plan Assessment/Plan (1) Encounter for dialysis catheter care: PLAN: Plan 1.? Acute hypoxic respiratory failure secondary to acute exacerbation of chronic COPD and acute on chronic heart failure with preserved ejection fraction, complicated by stage IV chronic kidney disease-initially on BiPAP.? Oxygen now stable on room air. 2.? Acute exacerbation of chronic COPD-transitioned to prednisone burst.? Albuterol and DuoNeb aerosols.? 3. Acute on chronic heart failure with preserved ejection fraction-torsemide and spironolactone initially held due to hypotension.? Continue dialysis.? Repeat chest x-ray with improvement in CHF.? Continue home diuretic regimen. 4. Acute encephalopathy-metabolic secondary to #1/2/#3.? MRI without stroke.? Noted likely chronic ischemic changes.? Encephalopathy now resolved. 5. Chronic kidney disease stage IV-nephrology consulted.? Underwent tunneled dialysis catheter replacement 06/05/2022.? History of chronic kidney disease stage IIIb however recently worsened due to hemorrhagic shock.? Continue dialysis as scheduled. 6. Chronic atrial fibrillation-anticoagulation on hold due to recent GI bleed.? Continue metoprolol.? Per GI, may begin anticoagulation for stroke prevention. Will discuss with family beginning anticoagulation. 7. Chronic heart failure with preserved ejection fraction-no exacerbation. On torsemide, spironolactone. 8. Anemia of chronic disease-hemoglobin reduced from baseline due to recent GI bleed.? Trend CBC. 9. Type 2 diabetes mellitus with neuropathy-oral regimen on hold.? Accu-Cheks with sliding scale insulin.? Continue home insulin regimen. 10. Hypertension-continue current regimen. 11. Hyperlipidemia-continue statin. 12. GERD with recent GI bleed-on PPI, Carafate. 13. Chronic bilateral lower extremity venous stasis wounds-wound RN consulted. 14. Morbid obesity- weight loss encouraged. 15.? Probable ANTHONY-recommend outpatient sleep study. DVT prophylaxis-SCDs Discharge planning: Awaiting facility/insurance acceptance for SNF. This patient was seen by CHESTER Mcqueen under the supervision of Dr. Calvo. Documented by User: Dr. Maynor Calvo MD 06/08/22 13:37 Objective Data Lab / Micro Data Result Diagrams: 06/08/22 05:15 06/08/22 05:15 Assessment & Plan Assessment/Plan (1) Encounter for dialysis catheter care: Addt'l Comments This patient was seen in conjunction with Jaymie Hakan, CUMULATIVE EFFECTS ANALYST-C .? I have independently interviewed and examined the patient and reviewed pertinent historical, laboratory, and other data.? Please refer to CHESTER Mcqueen? note for details of this patient's presentation, findings, and recommendations.? I have reviewed? CHESTER Mcqueen ? note and concur? with documented findings. In brief, patient Patient is an 76-year-old gentleman resident at an extended care facility brought in with increasing confusion 06/05/2022; patient seen scheduled to undergo dialysis catheter placement.? Still remains confused and lethargic 06/06/2022; patient seen much more awake and interactive.? Back to his baseline.? Plan is for patient to be discharged to ECF.? (Patient wants to go to a different ECF on discharge) 06/07/2022; awaiting transfer to SNF 06/08/2022 patient seen no change in condition Physical Examination: GENERAL: Patient is frail looking HEENT: Atraumatic; EYES; Anicteric, Normal Conjunctiva NECK; supple, normal thyroid, RESPIRATORY: Diminished to auscultation CARDIOVASCULAR:? Regular S1 S2, GI:? soft, normoactive bowel sounds, : No Renal angle tenderness; EXTREMITIES: Bilateral lower extremity stasis dermatitis MUSCULOSKELETAL:? no muscle wasting NEURO:? Awake;? no lateralizing signs. SKIN:?As described above PSYCH; Flat? affect Assessment: 1.? Acute metabolic encephalopathy 2.? End-stage renal disease on hemodialysis 3.? Chronic A. fib 4.? GERD 5.? Essential hypertension (BP meds on hold in view of relative hypotension) 6.? Class III obesity with BMI of 54.1 7.? Chronic diastolic congestive heart failure 8.? Dyslipidemia 9.? Diabetes mellitus type 2 10.? DVT prophylaxis Recommendations: 1.? I have discussed the results of my overview and impressions with the patient 2.? Options for management were reviewed Total time spent by myself and the advanced practice practitioner evaluating patient, reviewing labs, subsequent management decisions, discussion with patient as well as other providers 40 minutes ( 25 of which was spent by myself) Charges/Coding Visit Charges Inpatient E&M: 50551 Subs Hosp L2
--- NOTE | 2022-06-08 11:22 | PCM.PN.REN ---
Subjective Subjective Sitting in chair, denies any complaints. Objective Data Objective Data Vital Signs: Vital Signs Temp Pulse Resp BP Pulse Ox O2 Del Method O2 Flow Rate 97.3 F L 89 18 115/56 L 95 Room Air 1 06/08/22 09:07 06/08/22 09:13 06/08/22 09:07 06/08/22 09:13 06/08/22 09:58 06/08/22 09:58 06/06/22 07:39 FiO2 21 06/08/22 02:47 Oxygen Flow Rate (L/min) 1 Oxygen Delivery Method Room Air Weight: 152.3 kg Body Mass Index (BMI) 53.6 Intake & Output: Intake and Output for Last 24 Hours 06/06/22 06/07/22 06/08/22 23:59 23:59 23:59 Intake Total 860 / 1260 1500 / 1740 360 / 360 Output Total 4000 / 4000 Balance -3140 / -2740 1500 / 1740 360 / 360 Lab / Micro Data Result Diagrams: 06/08/22 05:15 06/08/22 05:15 Labs: Laboratory Results - last 24 hr 06/07/22 11:23: POC Glucose 232 H 06/07/22 16:30: POC Glucose 381 H 06/07/22 21:52: POC Glucose 372 H 06/08/22 05:15: WBC 5.9, RBC 2.94 L, Hgb 8.8 L, Hct 28.7 L, MCV 97.6 H, MCH 29.9, MCHC 30.7 L, RDW Std Deviation 55.4 H, RDW Coeff of Petty 15.7 H, Plt Count 103 L, MPV 10.6, Immature Gran % (Auto) 0.300, Neut % (Auto) 75.3 H, Lymph % (Auto) 11.8 L, [place] % (Auto) 12.4 H, Eos % (Auto) 0.2, Baso % (Auto) 0.0, Absolute Neuts (auto) 4.5, Absolute Lymphs (auto) 0.70 L, Nucleated RBC % 0 06/08/22 05:15: Sodium 131 L, Potassium 4.1, Chloride 97 L, Carbon Dioxide 26.0, Anion Gap 8, BUN 64 H, Creatinine 3.67 H, Estim Creat Clear Calc 15.51, Est GFR (MDRD) Af Amer 21 L, Est GFR (MDRD) Non-Af 17 L, BUN/Creatinine Ratio 17.4, Glucose 285 H, Calcium 8.3 L 06/08/22 06:11: POC Glucose 296 H Micro: Microbiology 06/04/22 10:26 Blood Culture (Wb) #2 - Dialysis/Fistula Bacteria Detection (PCR) - Final Staphylococcus epidermidis 06/04/22 10:26 Blood Culture (Wb) #2 - Dialysis/Fistula Blood Culture - Final Staphylococcus epidermidis 06/04/22 13:10 Catheter - Dialysis/Fistula Gram Stain - Final 06/03/22 18:00 Urine, Random Legionella Antigen - Final 06/03/22 18:00 Urine, Random Streptococcus pneumoniae Antigen (M - Final 06/03/22 20:25 Mucosa - Nasopharyngeal Respiratory Panel (PCR) - Final Physical Exam Narrative Const: Alert and oriented. No apparent distress HEENT: oral mucosa moist Cardio: S1, S2, RRR Respiratory: Clear anteriorly and posteriorly, no wheezes, rhonchi rales GI: Abdomen soft, +BS x4 quadrants. Extremities: edema to b/l thighs and legs. Right chest tunneled HD catheter C/D/I. Assessment & Plan Assessment/Plan (1) Acute confusion: (2) SAQIB (acute kidney injury): (3) Chronic kidney disease, stage IV (severe): (4) Anemia: PLAN: Plan - Nonoliguric dialysis requiring SAQIB secondary to ATN. His first dialysis was on May 17, 2022. Patient had poorly functioning/sluggish HD catheter therefore removed on 06/04 and new tunneled HD catheter placed 06/05. Patient underwent and tolerated HD 06/05 and again 06/06 over 4 hours, 4 L of fluid removed. No acute indication for CERTIFIED CODING SPECIALIST today. Plan for dialysis Thursday over 4hours and attempt ~4L UF as pt/bp tolerates, no heparin with HD. EDW not reached/established yet. We will continue to monitor for renal recovery. Patient is hypervolemic and likely once volume status improves we will see more accurate creatinine levels. - CKD stage IV with baseline creatinine ranging around 2.3 mg/dL. 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 -Altered mental status resolved and back to baseline. MRI no acute process. Afebrile. WBC normal. UA showed improvement from previous UA. Brain CT no acute pathology. Blood cultures staph epi from first tunneled HD catheter (that tunneled HD catheter removed 06/04 due to not functioning well and new tunneled HD catheter placed 06/05). Peripheral BC pending. Urine cx legionella and strep pneumoniae antigen -Blood pressures acceptable on lopressor, lasix and aldactone - patient has history of chronic anemia and recent history of GI bleed. Hgb trends acceptable. On PPI. -Exacerbation COPD, improving. Receiving IV steroids and breathing treatments. Chest x-ray reviewed, atelectasis versus infiltrate at lung bases - discussed with primary team and discharge planning team. Discharge planning in progress. Family looking into different ECF
[2022-06-08] MEDS: Insulin Glargine-YFGN 100 UNIT/ML Pen 40 UNIT SC (11:41)
[2022-06-08 12:15] LABS: Bedside Glucose 268 mg/dL (74-106)
[2022-06-08 17:00] LABS: Bedside Glucose 332 mg/dL (74-106)
[2022-06-08] MEDS: Pravastatin 40 MG Tablet PO (21:57)
[2022-06-08] MEDS: QUEtiapine 25 MG Tablet 12.5 MG PO (21:57)
[2022-06-08 22:36] LABS: Bedside Glucose 357 mg/dL (74-106)
--- NOTE | 2022-06-08 23:38 | CPS ---
Pt complained bipap pressures felt too high, lowered bipap pressures for pt comfort.
[2022-06-09] VITALS (17 sets, daily range): BP systolic 135–168; BP diastolic 66–83; PULSE 73–86; RESP 14–22; TEMP 35.9–36.5; O2SAT 96–99
[2022-06-09 05:07] LABS: Absolute Lymphocyte Count 0.88 X10^3/uL (0.83-4.51); Absolute Neutrophil Count 5.1 X10^3/uL (2.0-7.7); Eosinophil# 0.03 X10^3/uL; Eosinophils% 0.4 % (0-5); Hematocrit 30.4 % (40-54); Hemoglobin 9.5 g/dL (13.0-16.5); Lymphocyte # 0.88 X10^3/ul (0.83-4.51); Lymphocyte % 13.1 % (19-41); Mean Corp Hgb Conc 31.3 g/dL (32-36); Mean Corpuscular Hgb 30.1 pg (27.0-32.0); Mean Corpuscular Volume 96.2 fL (80-94); Mean Platelet Vol. 10.4 fl (6.2-12.0); Monocyte# 0.64 X10^3/uL; Monocyte% 9.5 % (0-10); NRBC Flagged by Analyzer 0 % (0-5); Neutrophil # 5.13 X10^3/uL (2.7-7.7); Neutrophil % 76.6 % (47-70); Platelet Count 125 K/mm3 (150-450); RBC Distribution Width CV 15.2 % (11.6-14.6); RBC Distribution Width SD 53.6 fl (35.1-43.9); Red Blood Count 3.16 M/mm3 (4.6-6.2); White Blood Count 6.7 K/mm3 (4.4-11.0)
[2022-06-09 05:29] LABS: Albumin, Serum 3.2 g/dL (3.2-5.0); BUN 74 mg/dL (7-18); BUN/Creat Ratio 22.6 RATIO (10-20); Calcium,Total 8.8 mg/dL (8.5-10.1); Chloride 96 mmol/L (98-107); Creatinine, Serum 3.28 mg/dL (0.70-1.30); EST Glomerular Filtration Rate 20 mL/min (>60); Est Glom Filt Rate - Afr Amer 24 mL/min (>60); Estimated Creatinine Clearance 17.35 ml/min; Glucose 278 mg/dL (74-106); Phosphorus 4.1 mg/dL (2.5-4.9); Potassium 4.1 mmol/L (3.5-5.1); Sodium Level 132 mmol/L (136-145)
[2022-06-09] MEDS: Gabapentin 100 MG Capsule PO ×3 (06:32→22:01)
[2022-06-09] MEDS: Sucralfate 1 GM Tablet PO ×2 (06:32→16:17)
[2022-06-09] MEDS: Insulin Lispro 100 UNIT/ML INSULN.PEN SC ×3 (06:36→21:50)
[2022-06-09 07:00] LABS: Bedside Glucose 236 mg/dL (74-106)
[2022-06-09] MEDS: Ipratropium/Albuterol Sulfate 3 ML AMPUL.NEB INHALATION ×3 (07:04→19:25)
[2022-06-09] MEDS: Acetaminophen 325 MG Tablet 650 MG PO ×3 (07:43→22:01)
--- NOTE | 2022-06-09 09:31 | DIALYSIS ---
Addendum entered by Db Elena 06/09/22 13:49: Hemodialysis complete. 4.3 hr run. 3k bath. Net fluid removed = 3900 ml. Patient tolerated HD tx well. Venous chamber clotted during tx. New setup required. Right chest CVC: Site benign, biofilm dressing dry and intact. Lumen flushed with NS, filled to volume with Heparin, clamped and capped. Report given to primary Erika HOLT. Original Note: Report from primary RNErika Access: Right chest CVC. Site has some old blood. Dressing changed per protocol with Biofilm dressing. Connections secure. Hemosafe applied x 2.
--- NOTE | 2022-06-09 10:05 | PN.RENAL_ITS ---
Subjective Subjective Seen on dialysis, tolerating treatment well. No overnight events. Son at bedside. Objective Data Objective Data Vital Signs: Vital Signs Temp Pulse Resp BP Pulse Ox O2 Del Method O2 Flow Rate 97.7 F L 85 18 168/81 H 97 Room Air 1 06/09/22 09:30 06/09/22 09:30 06/09/22 09:30 06/09/22 09:30 06/09/22 09:30 06/09/22 09:30 06/06/22 07:39 FiO2 97 06/09/22 08:10 Oxygen Flow Rate (L/min) 1 Oxygen Delivery Method Room Air Weight: 154.4 kg Body Mass Index (BMI) 53.6 Intake & Output: Intake and Output for Last 24 Hours 06/07/22 06/08/22 06/09/22 23:59 23:59 23:59 Intake Total 1500 / 1740 1560 / 1760 300 / 300 Balance 1500 / 1740 1560 / 1760 300 / 300 Lab / Micro Data Result Diagrams: 06/09/22 04:10 06/09/22 04:10 Labs: Laboratory Results - last 24 hr 06/08/22 11:40: POC Glucose 268 H 06/08/22 16:12: POC Glucose 332 H 06/08/22 21:53: POC Glucose 357 H 06/09/22 04:10: WBC 6.7, RBC 3.16 L, Hgb 9.5 L, Hct 30.4 L, MCV 96.2 H, MCH 30.1, MCHC 31.3 L, RDW Std Deviation 53.6 H, RDW Coeff of Petty 15.2 H, Plt Count 125 L, MPV 10.4, Immature Gran % (Auto) 0.400, Neut % (Auto) 76.6 H, Lymph % (Auto) 13.1 L, [place] % (Auto) 9.5, Eos % (Auto) 0.4, Baso % (Auto) 0.0, Absolute Neuts (auto) 5.1, Absolute Lymphs (auto) 0.88, Nucleated RBC % 0 06/09/22 04:10: Sodium 132 L, Potassium 4.1, Chloride 96 L, Carbon Dioxide 27.0, BUN 74 H, Creatinine 3.28 H, Estim Creat Clear Calc 17.35, Est GFR (MDRD) Af Amer 24 L, Est GFR (MDRD) Non-Af 20 L, BUN/Creatinine Ratio 22.6 H, Glucose 278 H, Calcium 8.8, Phosphorus 4.1, Albumin 3.2 06/09/22 06:35: POC Glucose 236 H Micro: Microbiology 06/04/22 10:26 Blood Culture (Wb) #2 - Dialysis/Fistula Bacteria Detection (PCR) - Final Staphylococcus epidermidis 06/04/22 10:26 Blood Culture (Wb) #2 - Dialysis/Fistula Blood Culture - Final Staphylococcus epidermidis 06/04/22 13:10 Catheter - Dialysis/Fistula Gram Stain - Final 06/03/22 18:00 Urine, Random Legionella Antigen - Final 06/03/22 18:00 Urine, Random Streptococcus pneumoniae Antigen (M - Final 06/03/22 20:25 Mucosa - Nasopharyngeal Respiratory Panel (PCR) - Final Physical Exam Narrative Const: Alert and oriented. No apparent distress HEENT: oral mucosa moist Cardio: S1, S2, RRR Respiratory: Clear anteriorly and posteriorly, no wheezes, rhonchi rales GI: Abdomen soft, +BS x4 quadrants. Extremities: edema to b/l thighs and legs. Right chest tunneled HD catheter C/D/I. Assessment & Plan Assessment/Plan (1) Acute confusion: (2) SAQIB (acute kidney injury): (3) Chronic kidney disease, stage IV (severe): (4) Anemia: PLAN: Plan - dialysis requiring SAQIB secondary to ATN. His first dialysis was on May 17, 2022. Patient had poorly functioning/sluggish HD catheter therefore removed on 06/04 and new tunneled HD catheter placed 06/05. Patient underwent and tolerated HD 06/05 and again 06/06 over 4 hours, 4 L of fluid removed. UOP is low. Plan for dialysis today over 4hours and attempt ~4L UF as pt/bp tolerates, no heparin with HD. EDW not reached/established yet. We will continue to monitor for renal recovery. Patient is hypervolemic and likely once volume status improves we will see more accurate creatinine levels. - CKD stage IV with baseline creatinine ranging around 2.3 mg/dL. 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 -Altered mental status resolved and back to baseline. MRI no acute process. Afebrile. WBC normal. UA showed improvement from previous UA. Brain CT no acute pathology. Blood cultures staph epi from first tunneled HD catheter (that tunneled HD catheter removed 06/04 due to not functioning well and new tunneled HD catheter placed 06/05). Peripheral BC pending. Urine cx legionella and strep pneumoniae antigen -Blood pressures acceptable on lopressor, lasix and aldactone - hyponatremia from hypervolemia and CKD - patient has history of chronic anemia and recent history of GI bleed. Hgb trends acceptable, 9.5. On PPI. -Exacerbation COPD, improving. Receiving IV steroids and breathing treatments. Chest x-ray reviewed, atelectasis versus infiltrate at lung bases - discussed with primary team and discharge planning team. Discharge planning in progress. Family looking into different rehab unit. Discussed with patient's son
--- NOTE | 2022-06-09 10:37 | WOUNDNOTE ---
No open areas noted to bilateral lower legs. all blistered areas are dry. skin is dry. applied aloe vesta to bilateral lower legs and feet. pt tolerated well.
--- NOTE | 2022-06-09 10:44 | PCM.PN.HOSP ---
Documented by User: Jaymie Mcclendon NP, CLOSED CIRCUIT SCREEN WATCHER-C 06/09/22 10:55 Subjective Subjective Patient seen and examined. Undergoing dialysis. Resting comfortably in bed at this time. Discussed ongoing plan of care with family. Questions and concerns addressed. Objective Data Objective Data Vital Signs: Vital Signs Temp Pulse Resp BP Pulse Ox O2 Del Method O2 Flow Rate 97.7 F L 85 18 168/81 H 97 Room Air 1 06/09/22 09:30 06/09/22 09:30 06/09/22 09:30 06/09/22 09:30 06/09/22 09:30 06/09/22 09:30 06/06/22 07:39 FiO2 97 06/09/22 08:10 Oxygen Flow Rate (L/min) 1 Oxygen Delivery Method Room Air Weight: 340 lb 6.299 oz Body Mass Index (BMI) 53.6 Intake & Output: Intake and Output for Last 24 Hours 06/07/22 06/08/22 06/09/22 23:59 23:59 23:59 Intake Total 1500 / 1740 1560 / 1760 300 / 300 Balance 1500 / 1740 1560 / 1760 300 / 300 Lab / Micro Data Result Diagrams: 06/09/22 04:10 06/09/22 04:10 Labs: Laboratory Results - last 24 hr 06/08/22 11:40: POC Glucose 268 H 06/08/22 16:12: POC Glucose 332 H 06/08/22 21:53: POC Glucose 357 H 06/09/22 04:10: WBC 6.7, RBC 3.16 L, Hgb 9.5 L, Hct 30.4 L, MCV 96.2 H, MCH 30.1, MCHC 31.3 L, RDW Std Deviation 53.6 H, RDW Coeff of Petty 15.2 H, Plt Count 125 L, MPV 10.4, Immature Gran % (Auto) 0.400, Neut % (Auto) 76.6 H, Lymph % (Auto) 13.1 L, [place] % (Auto) 9.5, Eos % (Auto) 0.4, Baso % (Auto) 0.0, Absolute Neuts (auto) 5.1, Absolute Lymphs (auto) 0.88, Nucleated RBC % 0 06/09/22 04:10: Sodium 132 L, Potassium 4.1, Chloride 96 L, Carbon Dioxide 27.0, BUN 74 H, Creatinine 3.28 H, Estim Creat Clear Calc 17.35, Est GFR (MDRD) Af Amer 24 L, Est GFR (MDRD) Non-Af 20 L, BUN/Creatinine Ratio 22.6 H, Glucose 278 H, Calcium 8.8, Phosphorus 4.1, Albumin 3.2 06/09/22 06:35: POC Glucose 236 H Micro: Microbiology 06/04/22 10:26 Blood Culture (Wb) #2 - Dialysis/Fistula Bacteria Detection (PCR) - Final Staphylococcus epidermidis 06/04/22 10:26 Blood Culture (Wb) #2 - Dialysis/Fistula Blood Culture - Final Staphylococcus epidermidis 06/04/22 13:10 Catheter - Dialysis/Fistula Gram Stain - Final 06/03/22 18:00 Urine, Random Legionella Antigen - Final 06/03/22 18:00 Urine, Random Streptococcus pneumoniae Antigen (M - Final 06/03/22 20:25 Mucosa - Nasopharyngeal Respiratory Panel (PCR) - Final Physical Exam Const alert and oriented x3 Constitutional Narrative: Undergoing dialysis Nutritional Appearance: obese HEENT normocephalic and moist oral mucous membranes Eyes PERRL, EOMs intact bilaterally and conjunctivae normal Neck no lymphadenopathy Resp clear to auscultation bilaterally Auscultation: diminished lung sounds Cardio no murmurs Cardio Narrative: Atrial fibrillation, rate controlled Peripheral Pulses: pulses 2+ throughout GI normal to inspection, nondistended, normoactive bowel sounds, non-tender and non-distended Extremity normal to inspection Skin no rashes or lesions noted Skin Narrative: Bilateral lower extremity venous stasis wounds/skin changes Lesions: no lesions Rashes: no rashes Trauma: no lacerations or abrasions Neuro CN's II-XII intact bilaterally, no focal motor deficits, no sensory deficits noted and deep tendon reflexes 2+ bilaterally Psych mental status grossly normal and affect normal Assessment & Plan Assessment/Plan (1) Acute confusion: PLAN: Plan 1.? Acute hypoxic respiratory failure secondary to acute exacerbation of chronic COPD and acute on chronic heart failure with preserved ejection fraction, complicated by stage IV chronic kidney disease-initially on BiPAP.? Oxygen now stable on room air. 2.? Acute exacerbation of chronic COPD-transitioned to prednisone burst X5 days.? Albuterol and DuoNeb aerosols.? 3. Acute on chronic heart failure with preserved ejection fraction-torsemide and spironolactone initially held due to hypotension.? Continue dialysis.? Repeat chest x-ray with improvement in CHF.? Continue home diuretic regimen. 4. Acute encephalopathy-metabolic secondary to #1/2/#3.? MRI without stroke.? Noted likely chronic ischemic changes.? Encephalopathy now resolved. 5. Chronic kidney disease stage IV-nephrology consulted.? Underwent tunneled dialysis catheter replacement 06/05/2022.? History of chronic kidney disease stage IIIb however recently worsened due to hemorrhagic shock.? Continue dialysis as scheduled. 6. Chronic atrial fibrillation- Continue metoprolol.? Per GI, may begin anticoagulation for stroke prevention. Begin Eliquis 2.5 mg twice daily. 7. Chronic heart failure with preserved ejection fraction-no exacerbation. On torsemide, spironolactone. 8. Anemia of chronic disease-hemoglobin reduced from baseline due to recent GI bleed.? Trend CBC. 9. Type 2 diabetes mellitus with neuropathy-oral regimen on hold.? Accu-Cheks with sliding scale insulin.? Continue home insulin regimen. 10. Hypertension-continue current regimen. 11. Hyperlipidemia-continue statin. 12. GERD with recent GI bleed-on PPI, Carafate. 13. Chronic bilateral lower extremity venous stasis wounds-wound RN consulted. 14. Morbid obesity- weight loss encouraged. 15.? Probable ANTHONY-recommend outpatient sleep study. Continue BIPAP QHS. DVT prophylaxis-SCDs, Eliquis Discharge planning: Awaiting facility/insurance acceptance for SNF. This patient was seen by CHESTER Mcqueen under the supervision of Dr. Perez. Time spent examining patient, reviewing data and subsequent management of care: 16 minutes including extensive family discussion Documented by User: Dr. Sharona Perez MD 06/09/22 15:00 Objective Data Lab / Micro Data Result Diagrams: 06/09/22 04:10 06/09/22 04:10 Assessment & Plan Assessment/Plan (1) Acute confusion: Charges/Coding Addendum Addendum: Patient seen by Jaymie BRIGGS under my supervision Patient seen and examined. He felt well and had no complaints. He was on room air. He was about to have dialysis. Review of systems otherwise negative. He has remained hemodynamically stable. O/E: Const alert, oriented x3 and no apparent distress, super morbid obesity General Appearance: cooperative HEENT normocephalic, head/scalp atraumatic, hearing grossly normal bilaterally and moist oral mucous membranes Eyes PERRL, EOMs intact bilaterally and conjunctivae normal Neck no lymphadenopathy, supple and no JVD Resp normal respiratory effort and clear to auscultation bilaterally Cardio regular rate, regular rhythm, S1 normal heart sound, S2 normal heart sound and no murmurs GI normal to inspection, nondistended, normoactive bowel sounds and soft to palpation Extremity normal to inspection, full ROM and no clubbing, cyanosis or edema; dialysis catheter in chest Skin no rashes or lesions noted Neuro oriented x3, CN's II-XII intact bilaterally and moves all extremities Sensorium / Orientation: awake and alert Psych affect normal Assessment and plan #Acute hypoxic respiratory failure due to COPD exacerbation and acute on chronic heart failure preserved ejection fraction Improved. Now on room air. Breathing treatments of bronchodilators. Titrate oxygen as needed to maintain saturation above 90%. Now back on torsemide and spironolactone. These were initially held due to hypotension. On p.o. prednisone 40 mg daily for 5 days. Also having dialysis which helps with fluid removal. #Acute metabolic encephalopathy: Resolved. MRI showed no evidence of a stroke. #CKD stage IV: Nephrology on board. Had tunneled dialysis catheter placed on 06/05/2022. Now on dialysis. #Chronic A. fib: On metoprolol. On Eliquis 2.5 mg twice daily. #Type 2 diabetes mellitus with neuropathy: On insulin sliding scale. Accu-Cheks ACH S. Also on home Lantus. Oral meds on hold on account of worsening kidney function #Hypertension: Continue current medication Rest of chronic conditions include hyperlipidemia and GERD as well as morbid obesity and ANTHONY. Management as per CHESTER Mcqueen's note, which I have reviewed and endorsed. Time spent on the care of the patient today was 20 minutes with Prudence Mcqueen spending 16 minutes making a total of 36 minutes. Visit Charges Inpatient E&M: 01210 Subs Hosp L2
--- NOTE | 2022-06-09 11:02 | CASEMGMT ---
DARIO spoke with patient's son Junior and grandson Mikel. Junior said someone mentioned [facility] in [place] has an acute rehab unit and they do dialysis there. SW told them SW will check to see if they are in network with patient's insurance. SW told them SW does still have referrals out to [facility] and [facility]. Patient is mentioning now that he wants to go home. SW reviewed patient's therapy notes and he is doing better, but not well enough to be home alone. Patient's son said there is no way family would be able to care for patient 15/06. SW told them SW will continue to work on finding placement for patient. SW reviewed [facility]'s website and [facility] did not show up. SW called [facility] and the lady thought they were in network with [facility]. SW faxed referral. Await response. [facility] phone: [phone] and fax: [phone]. Await response. DARIO will also follow up with [facility]. Simi Samuels COCOA ROASTER SVETLANA
[2022-06-09] MEDS: Fluticasone 0.05% 1 SPRAY NASAL.SRY NASAL ×2 (11:16→21:46)
[2022-06-09] MEDS: Azelastine HCl NASAL.SRY 1 SPRAY NASAL ×2 (11:16→21:46)
[2022-06-09] MEDS: Insulin Glargine-YFGN 100 UNIT/ML Pen 40 UNIT SC (11:16)
[2022-06-09 11:40] LABS: Bedside Glucose 148 mg/dL (74-106)
--- NOTE | 2022-06-09 13:16 | CASEMGMT ---
SW received a return call from Hayley at [facility] and they are out of network with patient's insurance. SW called [facility]. SW made referral as they also do dialysis. [facility] phone: [phone] and fax: [phone]. Await response. Simi Samuels BLOW DOWN HELPER SVETLANA
--- NOTE | 2022-06-09 13:22 | CASEMGMT ---
Addendum entered by Simi Samuels 06/09/22 13:29: DARIO did fax updates to [facility]. Simi MOTA Original Note: DARIO called [facility], but admissions was not available at the moment. DARIO will call back. Simi MOTA
[2022-06-09] MEDS: Heparin 10,000 UNITS/10 ML Vial 3200 UNITS IV (13:35)
[2022-06-09] MEDS: predniSONE 20 MG Tablet 40 MG PO (13:56)
[2022-06-09] MEDS: Furosemide 40 MG Tablet PO (13:56)
[2022-06-09] MEDS: Multivitamins,Therapeutic Tablet 1 TABLET PO (13:56)
[2022-06-09] MEDS: Loratadine 10 MG Tablet PO (13:56)
[2022-06-09] MEDS: Spironolactone 25 MG Tablet PO (13:56)
[2022-06-09] MEDS: Ezetimibe 10 MG Tablet PO (13:56)
[2022-06-09] MEDS: Metoprolol Tartrate 50 MG Tablet PO ×2 (13:57→21:55)
[2022-06-09] MEDS: Pantoprazole Sodium 40 MG Tablet PO ×2 (13:57→21:56)
[2022-06-09] MEDS: Menthol/Lanolin/Calamine/Znox 113 GM Tube 1 APPLIC TOPICAL ×2 (13:58→17:09)
[2022-06-09] MEDS: APIXABAN 2.5 MG TABLET PO ×2 (14:16→21:47)
--- NOTE | 2022-06-09 14:39 | CASEMGMT ---
DARIO received a call from Kenyetta at [facility]. Kenyetta said they can accept patient. Kenyetta will submit for pre-cert once she has therapy notes from today. DARIO called patient's son Junior and let him know this information. He was pleased with this idea. DARIO told him insurance still has to approve it. Plan: [facility] pending insurance approval. Simi Samuels SATELLITE DISH TECHNICIAN SVETLANA
[2022-06-09] MEDS: Vitamin B Comp W-C Capsule 1 CAP PO (16:16)
[2022-06-09] MEDS: Insulin Lispro 100 UNIT/ML INSULN.PEN 8 UNIT SC (16:16)
[2022-06-09] MEDS: Cholecalciferol (VIT D3) 25 MCG TABLET (1,000 UNITS) 50 MCG PO (16:16)
[2022-06-09 16:41] LABS: Bedside Glucose 199 mg/dL (74-106)
[2022-06-09] MEDS: Insulin Glargine-YFGN 100 UNIT/ML Pen 10 UNIT SC (21:53)
[2022-06-09] MEDS: Pravastatin 40 MG Tablet PO (21:55)
[2022-06-09] MEDS: QUEtiapine 25 MG Tablet 12.5 MG PO (21:56)
[2022-06-10] VITALS (14 sets, daily range): BP systolic 138–172; BP diastolic 59–109; PULSE 81–91; RESP 14–18; TEMP 35.7–36.2; O2SAT 95–99
[2022-06-10] MEDS: Menthol/Lanolin/Calamine/Znox 113 GM Tube 1 APPLIC TOPICAL ×2 (00:34→08:46)
[2022-06-10 00:46] LABS: Bedside Glucose 393 mg/dL (74-106)
[2022-06-10 05:16] LABS: Absolute Lymphocyte Count 0.46 X10^3/uL (0.83-4.51); Absolute Neutrophil Count 6.8 X10^3/uL (2.0-7.7); Eosinophil# 0.01 X10^3/uL; Eosinophils% 0.1 % (0-5); Hematocrit 29.7 % (40-54); Hemoglobin 9.5 g/dL (13.0-16.5); Lymphocyte # 0.46 X10^3/ul (0.83-4.51); Lymphocyte % 5.9 % (19-41); Mean Corpuscular Hgb 29.7 pg (27.0-32.0); Mean Corpuscular Volume 92.8 fL (80-94); Mean Platelet Vol. 9.8 fl (6.2-12.0); Monocyte# 0.56 X10^3/uL; Monocyte% 7.1 % (0-10); NRBC Flagged by Analyzer 0 % (0-5); Neutrophil # 6.78 X10^3/uL (2.7-7.7); Neutrophil % 86.3 % (47-70); POSITIVE DIFFERENTIAL YES; Platelet Count 103 K/mm3 (150-450); RBC Distribution Width CV 15.1 % (11.6-14.6); RBC Distribution Width SD 51.8 fl (35.1-43.9); White Blood Count 7.9 K/mm3 (4.4-11.0)
[2022-06-10 05:20] LABS: Differential Indicated SCAN CRITERIA MET
[2022-06-10 05:41] LABS: Anion Gap 8 (5-15); BUN 54 mg/dL (7-18); BUN/Creat Ratio 19.6 RATIO (10-20); Calcium,Total 8.4 mg/dL (8.5-10.1); Chloride 98 mmol/L (98-107); Creatinine, Serum 2.75 mg/dL (0.70-1.30); EST Glomerular Filtration Rate 24 mL/min (>60); Est Glom Filt Rate - Afr Amer 29 mL/min (>60); Glucose 291 mg/dL (74-106); Potassium 4.6 mmol/L (3.5-5.1); Sodium Level 132 mmol/L (136-145)
[2022-06-10 05:43] LABS: Differential Comment SCANNED
[2022-06-10] MEDS: Sucralfate 1 GM Tablet PO ×2 (06:22→16:04)
[2022-06-10] MEDS: Gabapentin 100 MG Capsule PO ×2 (06:22→13:02)
[2022-06-10] MEDS: Ipratropium/Albuterol Sulfate 3 ML AMPUL.NEB INHALATION ×3 (07:14→15:33)
[2022-06-10] MEDS: Insulin Lispro 100 UNIT/ML INSULN.PEN 10 UNIT SC ×3 (08:42→16:05)
[2022-06-10] MEDS: Insulin Lispro 100 UNIT/ML INSULN.PEN SC ×3 (08:42→16:05)
[2022-06-10] MEDS: predniSONE 20 MG Tablet 40 MG PO (08:43)
[2022-06-10] MEDS: Multivitamins,Therapeutic Tablet 1 TABLET PO (08:43)
[2022-06-10] MEDS: Spironolactone 25 MG Tablet PO (08:44)
[2022-06-10] MEDS: APIXABAN 2.5 MG TABLET PO (08:44)
[2022-06-10] MEDS: Vitamin B Comp W-C Capsule 1 CAP PO (08:44)
[2022-06-10] MEDS: Insulin Glargine-YFGN 100 UNIT/ML Pen 40 UNIT SC (08:44)
[2022-06-10] MEDS: Pantoprazole Sodium 40 MG Tablet PO (08:45)
[2022-06-10] MEDS: Azelastine HCl NASAL.SRY 1 SPRAY NASAL (08:45)
[2022-06-10] MEDS: Furosemide 40 MG Tablet PO (08:45)
[2022-06-10] MEDS: Ezetimibe 10 MG Tablet PO (08:45)
[2022-06-10] MEDS: Cholecalciferol (VIT D3) 25 MCG TABLET (1,000 UNITS) 50 MCG PO (08:45)
[2022-06-10] MEDS: Fluticasone 0.05% 1 SPRAY NASAL.SRY NASAL (08:46)
[2022-06-10] MEDS: Acetaminophen 325 MG Tablet 650 MG PO (08:49)
[2022-06-10] MEDS: Metoprolol Tartrate 50 MG Tablet PO (08:50)
[2022-06-10 09:15] LABS: Bedside Glucose 245 mg/dL (74-106)
--- NOTE | 2022-06-10 09:34 | PN.HOSP_ITS ---
Documented by User: Jaymie Mcclendon NP, FASHION INTERN-C 06/10/22 09:42 Subjective Subjective Patient seen and examined. Resting in chair. Reports intermittent dry cough. Denies fever, chills. Denies other symptoms or complaints. Objective Data Objective Data Vital Signs: Vital Signs Temp Pulse Resp BP Pulse Ox O2 Del Method O2 Flow Rate 96.6 F L 83 18 158/67 H 95 Room Air 1 06/10/22 06:24 06/10/22 08:50 06/10/22 07:14 06/10/22 08:50 06/10/22 07:14 06/10/22 08:59 06/06/22 07:39 FiO2 21 06/10/22 04:08 Oxygen Flow Rate (L/min) 1 Oxygen Delivery Method Room Air Weight: 332 lb 10.841 oz Body Mass Index (BMI) 53.6 Intake & Output: Intake and Output for Last 24 Hours 06/08/22 06/09/22 06/10/22 23:59 23:59 23:59 Intake Total 1560 / 1760 1000 / 1000 Output Total 3900 / 3900 Balance 1560 / 1760 -2900 / -2900 Lab / Micro Data Result Diagrams: 06/10/22 05:08 06/10/22 05:08 Labs: Laboratory Results - last 24 hr 06/09/22 11:13: POC Glucose 148 H 06/09/22 16:14: POC Glucose 199 H 06/09/22 21:49: POC Glucose 393 H 06/10/22 05:08: WBC 7.9, RBC 3.20 L, Hgb 9.5 L, Hct 29.7 L, MCV 92.8, MCH 29.7, MCHC 32.0, RDW Std Deviation 51.8 H, RDW Coeff of Petty 15.1 H, Plt Count 103 L, MPV 9.8, Immature Gran % (Auto) 0.600, Neut % (Auto) 86.3 H, Lymph % (Auto) 5.9 L, [place] % (Auto) 7.1, Eos % (Auto) 0.1, Baso % (Auto) 0.0, Absolute Neuts (auto) 6.8, Absolute Lymphs (auto) 0.46 L, Nucleated RBC % 0, Differential Comment SCANNED 06/10/22 05:08: Sodium 132 L, Potassium 4.6, Chloride 98, Carbon Dioxide 26.0, Anion Gap 8, BUN 54 H, Creatinine 2.75 H, Estim Creat Clear Calc 20.70, Est GFR (MDRD) Af Amer 29 L, Est GFR (MDRD) Non-Af 24 L, BUN/Creatinine Ratio 19.6, Glucose 291 H, Calcium 8.4 L 06/10/22 08:39: POC Glucose 245 H Micro: Microbiology 06/04/22 17:22 Blood Culture (Wb) - Anticubital Right Blood Culture - Final No growth in 5 days. 06/04/22 10:26 Blood Culture (Wb) #2 - Dialysis/Fistula Bacteria Detection (PCR) - Final Staphylococcus epidermidis 06/04/22 10:26 Blood Culture (Wb) #2 - Dialysis/Fistula Blood Culture - Final Staphylococcus epidermidis 06/04/22 13:10 Catheter - Dialysis/Fistula Gram Stain - Final 06/03/22 18:00 Urine, Random Legionella Antigen - Final 06/03/22 18:00 Urine, Random Streptococcus pneumoniae Antigen (M - Final 06/03/22 20:25 Mucosa - Nasopharyngeal Respiratory Panel (PCR) - Final Physical Exam Const alert, oriented x3 and no apparent distress Nutritional Appearance: morbidly obese HEENT normocephalic and moist oral mucous membranes Eyes PERRL, EOMs intact bilaterally and conjunctivae normal Neck no lymphadenopathy Resp clear to auscultation bilaterally Auscultation: diminished lung sounds Cardio regular rate and no murmurs Cardio Narrative: Atrial fibrillation, rate controlled Peripheral Pulses: pulses 2+ throughout GI normal to inspection, nondistended, normoactive bowel sounds, non-tender and non-distended Extremity normal to inspection General Extremity: edema bilateral lower extremity Details: mild Skin no rashes or lesions noted Skin Narrative: Chronic skin changes bilateral lower extremities Lesions: no lesions Rashes: no rashes Trauma: no lacerations or abrasions Neuro CN's II-XII intact bilaterally, no focal motor deficits, no sensory deficits noted and deep tendon reflexes 2+ bilaterally Psych mental status grossly normal and affect normal Assessment & Plan Assessment/Plan (1) Acute encephalopathy: PLAN: Plan 1.? Acute hypoxic respiratory failure secondary to acute exacerbation of chronic COPD and acute on chronic heart failure with preserved ejection fraction, compli cated by stage IV chronic kidney disease-initially on BiPAP.? Oxygen now stable on room air. 2.? Acute exacerbation of chronic COPD-transitioned to prednisone burst X5 days.? Albuterol and DuoNeb aerosols.? 3. Acute on chronic heart failure with preserved ejection fraction-torsemide and spironolactone initially held due to hypotension.? Continue dialysis.? Repeat chest x-ray with improvement in CHF.? Continue home diuretic regimen. 4. Acute encephalopathy-metabolic secondary to #1/2/#3.? MRI without stroke.? Noted likely chronic ischemic changes.? Encephalopathy now resolved. 5. Chronic kidney disease stage IV-nephrology consulted.? Underwent tunneled dialysis catheter replacement 06/05/2022.? History of chronic kidney disease stage IIIb however recently worsened due to hemorrhagic shock.? Continue dialysis as scheduled. 6. Chronic atrial fibrillation- Continue metoprolol.? Per GI, may begin anticoagulation for stroke prevention.? Begin Eliquis 2.5 mg twice daily. 7. Chronic heart failure with preserved ejection fraction-no exacerbation. On torsemide, spironolactone. 8. Anemia of chronic disease-hemoglobin reduced from baseline due to recent GI bleed.? Trend CBC. 9. Type 2 diabetes mellitus with neuropathy-oral regimen on hold.? Accu-Cheks with sliding scale insulin.? Continue home insulin regimen. 10. Hypertension-continue current regimen. 11. Hyperlipidemia-continue statin. 12. GERD with recent GI bleed-on PPI, Carafate. 13. Chronic bilateral lower extremity venous stasis wounds-wound RN consulted. 14. Morbid obesity- weight loss encouraged. 15.? Probable ANTHONY-recommend outpatient sleep study. Continue BIPAP QHS. DVT prophylaxis-SCDs, Eliquis Discharge planning: Awaiting facility/insurance acceptance for SNF. This patient was seen by CHESTER Mcqueen under the supervision of Dr. Perez. Time spent examining patient, reviewing data and subsequent management of care: 14 Documented by User: Dr. Sharona Perez MD 06/10/22 15:03 Objective Data Lab / Micro Data Result Diagrams: 06/10/22 05:08 06/10/22 05:08 Assessment & Plan Assessment/Plan (1) Acute encephalopathy: Charges/Coding Addendum Addendum: Patient seen by Jaymie BRIGGS under my supervision Patient seen and examined. He had no active complaints and had an uneventful night. REview of systems is otherwise negative. O/E Const alert, oriented x3 and no apparent distress, super morbid obesity General Appearance: cooperative HEENT normocephalic, head/scalp atraumatic, hearing grossly normal bilaterally and moist oral mucous membranes Eyes PERRL, EOMs intact bilaterally and conjunctivae normal Neck no lymphadenopathy, supple and no JVD Resp normal respiratory effort and clear to auscultation bilaterally Cardio regular rate, regular rhythm, S1 normal heart sound, S2 normal heart sound and n o murmurs GI normal to inspection, nondistended, normoactive bowel sounds and soft to palpation Extremity normal to inspection, full ROM and no clubbing, cyanosis or edema; dialysis catheter in chest Skin no rashes or lesions noted Neuro oriented x3, CN's II-XII intact bilaterally and moves all extremities Sensorium / Orientation: awake and alert Psych affect normal Assessment and plan #Acute hypoxic respiratory failure due to COPD exacerbation and acute on chronic heart failure preserved ejection fraction * Improved.? Now on room air. * Breathing treatments with bronchodilators.? Titrate oxygen as needed to maintain saturation above 90%. * on torsemide and spironolactone.?On p.o. prednisone 40 mg daily for 5 days. * Also having dialysis which helps with fluid removal. * #Acute metabolic encephalopathy: Resolved.? MRI showed no evidence of a stroke. #CKD stage IV: Nephrology on board.? Had tunneled dialysis catheter placed on 06/05/2022.? Now on dialysis. #Chronic A. fib: On metoprolol.? On Eliquis 2.5 mg twice daily. #Type 2 diabetes mellitus with neuropathy: * On insulin sliding scale.? Accu-Cheks ACH S.? * Also on home Lantus.? * Oral meds on hold on account of worsening kidney function #Hypertension: Continue current medication Rest of chronic conditions include hyperlipidemia and GERD as well as morbid obesity and ANTHONY.? Management as per CHESTER Mcqueen's note, which I have reviewed and endorsed. Disposition: awaiting placement Time spent on the care of the patient today was 18 minutes with CHESTER Mcqueen spending 14 minutes making a total of 32 minutes. Visit Charges Inpatient E&M: [id number] [facility] Hosp L2
--- NOTE | 2022-06-10 10:17 | CASEMGMT ---
DARIO faxed PT/OT notes to [facility]. DARIO also called and verified they received the fax. Await pre-cert. Plan: [facility] pending insurance approval. Simi Samuels CLOUD SECURITY ARCHITECT SVETLANA
--- NOTE | 2022-06-10 10:48 | CASEMGMT ---
Kenyetta from [facility] asked SW to fax vitals, labs, and a progress note from today. SW faxed this information. Simi Samuels AVIONICS ELECTRONICS TECHNICIAN VENETIAN BLIND ASSEMBLER
--- NOTE | 2022-06-10 11:29 | PCM.PN.REN ---
Subjective Subjective Following for dialysis requiring SAQIB Sitting in chair, denies any complaints. States tolerated dialysis yesterday with no cramping. Objective Data Objective Data Vital Signs: Vital Signs Temp Pulse Resp BP Pulse Ox O2 Del Method O2 Flow Rate 96.6 F L 83 18 158/67 H 95 Room Air 1 06/10/22 06:24 06/10/22 08:50 06/10/22 07:14 06/10/22 08:50 06/10/22 07:14 06/10/22 08:59 06/06/22 07:39 FiO2 21 06/10/22 04:08 Oxygen Flow Rate (L/min) 1 Oxygen Delivery Method Room Air Weight: 150.9 kg Body Mass Index (BMI) 53.6 Intake & Output: Intake and Output for Last 24 Hours 06/08/22 06/09/22 06/10/22 23:59 23:59 23:59 Intake Total 1560 / 1760 1000 / 1000 Output Total 3900 / 3900 Balance 1560 / 1760 -2900 / -2900 Lab / Micro Data Result Diagrams: 06/10/22 05:08 06/10/22 05:08 Labs: Laboratory Results - last 24 hr 06/09/22 11:13: POC Glucose 148 H 06/09/22 16:14: POC Glucose 199 H 06/09/22 21:49: POC Glucose 393 H 06/10/22 05:08: WBC 7.9, RBC 3.20 L, Hgb 9.5 L, Hct 29.7 L, MCV 92.8, MCH 29.7, MCHC 32.0, RDW Std Deviation 51.8 H, RDW Coeff of Petty 15.1 H, Plt Count 103 L, MPV 9.8, Immature Gran % (Auto) 0.600, Neut % (Auto) 86.3 H, Lymph % (Auto) 5.9 L, [place] % (Auto) 7.1, Eos % (Auto) 0.1, Baso % (Auto) 0.0, Absolute Neuts (auto) 6.8, Absolute Lymphs (auto) 0.46 L, Nucleated RBC % 0, Differential Comment SCANNED 06/10/22 05:08: Sodium 132 L, Potassium 4.6, Chloride 98, Carbon Dioxide 26.0, Anion Gap 8, BUN 54 H, Creatinine 2.75 H, Estim Creat Clear Calc 20.70, Est GFR (MDRD) Af Amer 29 L, Est GFR (MDRD) Non-Af 24 L, BUN/Creatinine Ratio 19.6, Glucose 291 H, Calcium 8.4 L 06/10/22 08:39: POC Glucose 245 H Micro: Microbiology 06/04/22 17:22 Blood Culture (Wb) - Anticubital Right Blood Culture - Final No growth in 5 days. 06/04/22 10:26 Blood Culture (Wb) #2 - Dialysis/Fistula Bacteria Detection (PCR) - Final Staphylococcus epidermidis 06/04/22 10:26 Blood Culture (Wb) #2 - Dialysis/Fistula Blood Culture - Final Staphylococcus epidermidis 06/04/22 13:10 Catheter - Dialysis/Fistula Gram Stain - Final 06/03/22 18:00 Urine, Random Legionella Antigen - Final 06/03/22 18:00 Urine, Random Streptococcus pneumoniae Antigen (M - Final 06/03/22 20:25 Mucosa - Nasopharyngeal Respiratory Panel (PCR) - Final Physical Exam Narrative Const: Alert and oriented. No apparent distress HEENT: oral mucosa moist Cardio: S1, S2, RRR Respiratory: Clear anteriorly and posteriorly, no wheezes, rhonchi rales GI: Abdomen soft, +BS x4 quadrants. Extremities: 2-3+ pitting edema to b/l thighs and legs. Right chest tunneled HD catheter C/D/I. Assessment & Plan Assessment/Plan (1) Acute confusion: (2) SAQIB (acute kidney injury): (3) Chronic kidney disease, stage IV (severe): (4) Anemia: PLAN: Plan - dialysis requiring SAQIB secondary to ATN. His first dialysis was on May 17, 2022. Patient had poorly functioning/sluggish HD catheter therefore removed on 06/04 and new tunneled HD catheter placed 06/05. Patient underwent and tolerated HD 06/05 and again 06/06 over 4 hours, 4 L of fluid removed. UOP is low. Tolerated HD Thursday with 3.9L UF. Plan for dialysis tomorrow over 4hours and 4L UF as pt/bp tolerates, no heparin with HD. EDW not reached/established yet. We will continue to monitor for renal recovery. Patient is hypervolemic and likely once volume status improves we will see more accurate kidney function/creatinine levels. UOP is low. - CKD stage IV with baseline creatinine ranging around 2.3 mg/dL. 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 -Altered mental status resolved and back to baseline. MRI no acute process. Afebrile. WBC normal. UA showed improvement from previous UA. Brain CT no acute pathology. Blood cultures staph epi from first tunneled HD catheter (that tunneled HD catheter removed 06/04 due to not functioning well and new tunneled HD catheter placed 06/05). Peripheral BC pending. Urine cx legionella and strep pneumoniae antigen -Blood pressures acceptable on lopressor, [id number] daily and aldactone 25mg daily - hyponatremia from hypervolemia and CKD - patient has history of chronic anemia and recent history of GI bleed. Hgb trends acceptable and uptrending, 9.5. On PPI. -Exacerbation COPD, improving. Receiving IV steroids and breathing treatments. Chest x-ray reviewed, atelectasis versus infiltrate at lung bases - discussed with primary team and discharge planning team. Discharge planning in progress. Family looking into different rehab unit. Discussed with patient's son
[2022-06-10 12:01] LABS: Bedside Glucose 306 mg/dL (74-106)
--- NOTE | 2022-06-10 15:12 | DCINST_ITS ---
Discharge Instructions Diet Discharge Diet: Low fat / Low cholesterol, 2000 Calorie Control Diet, 2000 mg Sodium Diet and Carb Control Diet Activity Discharge Activity: Return to Normal Activity Dressing / Incision Call your doctor if you observe: Shortness of breath, Dizziness and Chest pain Follow Up Care Test Results: Test results from this visit will be discussed in further detail at your follow- up appointment, if applicable. Discharge Plan Admission Admit Date/Time: 06/03/22 19:57 Primary Reason for Your Visit: confusion, altered mental status Attending Provider: Sharona Perez Primary Care Provider: Néstor Felix Consulting Providers: Alvarado Sam ; Tonya Torres ; Amlaz Holland ; Dulce Maria Kathleen ; Maynor Calvo Instructions Additional Instructions / Restrictions: Continue BIPAP QHS BIPAP rate 14, FIO2 21. Please refer/set up sleep study and pulmonary follow-up for probable sleep apnea. Please obtain weekly CBC and BMP at rehab. Discharge Orders/Prescriptions Prescriptions: New Eliquis 5 mg Tablet 5 mg PO BID Qty: 0 0RF insulin lispro [Humalog KwikPen Insulin] 100 unit/mL Insulin Pen 15 unit subcut TIDAC Qty: 0 0RF insulin lispro [Humalog KwikPen Insulin] 100 unit/mL Insulin Pen See Protocol subcut ACHS Qty: 0 0RF Protocol: 5. Sliding Scale Insulin High Dosing Condition: 150-209 mg/dl = 3 units Condition: 210-259 mg/dl = 6 units Condition: 260-324 mg/dl = 9 units Condition: 325-374 mg/dl = 12 units Condition: 375-409 mg/dl = 14 units Condition: 410-449 mg/dl = 16 units Condition: Greater than 449 call physician Protocol Text: - Use for Total Daily Dose of Insulin 81-120 units - Very insulin resistant or septic patients HIGH DOSING ALGORITHM insulin glargine-yfgn 100 unit/mL (3 mL) Insulin Pen 10 unit subcut QHS Qty: 0 0RF amlodipine 5 mg Tablet 5 mg PO DAILY Qty: 0 0RF Continued vitamin B complex 1 EACH capsule 1 ea PO DAILY cetirizine 10 mg Tablet 10 mg PO DAILY pravastatin 40 mg Tablet 40 mg PO QHS albuterol 90 mcg/actuation Aerosol 2 mcg INHALATION Q4H PRN PRN (Reason: Shortness Of Breath Or Wheezing) Rx Instructions: 2 puffs q4hr prn multivitamin Capsule 1 cap PO DAILY ezetimibe [Zetia] 10 mg Tablet 10 mg PO DAILY gabapentin 100 mg Tablet 100 mg PO TID cholecalciferol (vitamin D3) [Vitamin D3] 50 mcg (2,000 unit) Capsule 50 mcg PO DAILY azelastine-fluticasone 137-50 mcg/spray [place],Non-Aerosol 1 spray INTRANASAL BID Rx Instructions: administer into each nostril pantoprazole 40 mg Tablet,Delayed Release (Dr/Ec) 40 mg PO BID Qty: 0 0RF metoprolol tartrate 50 mg Tablet 50 mg PO BID Qty: 0 0RF [place] Nasal 0.65 % Aerosol,[place] 2 spray NASAL TID PRN PRN (Reason: NASAL DRYNESS) Qty: 0 0RF sucralfate 1 gram Tablet 1 g PO BID Qty: 0 0RF insulin glargine-yfgn 100 unit/mL (3 mL) Insulin Pen 40 unit subcut DAILY Qty: 0 0RF torsemide 20 mg Tablet 20 mg PO DAILY spironolactone 25 mg Tablet 25 mg PO DAILY Discontinued cyclobenzaprine 10 MG tablet 5 mg PO BID losartan 50 mg Tablet 50 mg PO DAILY Referrals / Follow Up: Alvarado Sam MD [NON-STAFF] - In 1 Week Almaz Holland MD [STAFF PHYSICIAN] - Within 1 Week (Follow up with nephrology at discharge, continue scheduled dialysis during admission) Raz Acosta DO [STAFF PHYSICIAN] - Within 1 Month Disposition Disposition (needs filled in before D/C Order can be placed): Inpatient Rehab Unit/Facility
--- NOTE | 2022-06-10 15:30 | CASEMGMT ---
DARIO received a call from Kenyetta at [facility] and patient was approved. They can take patient today. DARIO arranged for patient to get picked up at 6p via cot. SW notified RN, patient, physician, Nurse Practitioner, and patient's son Junior. Await orders. Plan: d/c to [facility]. Simi Samuels MSW SVETLANA
--- NOTE | 2022-06-10 16:00 | DS.PCM_ITS ---
Documented by User: Jaymie Mcclendon NP, DRYING TUMBLER OPERATOR-C 06/10/22 16:16 Providers Date of Admission: 06/03/22 Date of Discharge: 06/10/22 Primary Care Physician: Dr. Néstor Felix MD Consultations 06/03/22 20:52 Consult: Nephrology Routine Consulting Provider: Almaz Holland Reason for Consult: HD MWF EMERGENT Consult: No MD Notified: Yes Date Notified: 06/03/22 Time Notified: 20:14 Method of Notification: Answering Service Comments:: spoke with fantasma Consult: Onc/Wound/apartment leasing consultant Routine Comment: 06/04/22 10:39 Consult: General Surgery Routine Consulting Provider: Dulce Maria Kathleen Reason for Consult: Dialysis Line EMERGENT Consult: No MD Notified: Yes Date Notified: 06/04/22 Time Notified: 10:41 Method of Notification: Verbal Reason For Visit: encephalopathy,hypoxia,copd exacerbation Diagnosis Discharge Diagnosis (1) Acute encephalopathy: Status: Resolved Code(s): G93.40 - Encephalopathy, unspecified Medications at Discharge Home Medications vitamin B complex 1 ea PO DAILY supplement 10/24/16 albuterol 90 mcg/actuation aerosol inhaler 2 mcg inhalation Q4H PRN PRN Shortness Of Breath Or Wheezing 05/08/22 azelastine-fluticasone 137 mcg-50 mcg/spray nasal spray 1 spray intranasal BID allergies 05/08/22 cetirizine 10 mg tablet 10 mg PO DAILY allergies 05/08/22 cholecalciferol (vitamin D3) 50 mcg (2,000 unit) capsule (Vitamin D3) 50 mcg PO DAILY suppliment 05/08/22 ezetimibe 10 mg tablet (Zetia) 10 mg PO DAILY cholesterol 05/08/22 gabapentin 100 mg tablet 100 mg PO TID neuropathy 05/08/22 multivitamin 1 cap PO DAILY suppliement 05/08/22 pravastatin 40 mg tablet 40 mg PO QHS cholesterol 05/08/22 metoprolol tartrate 50 mg tablet 50 mg PO BID #0 tabs 05/27/22 pantoprazole 40 mg tablet,delayed release 40 mg PO BID #0 tabs 05/27/22 sodium chloride 0.65 % nasal spray aerosol ([place] Nasal) 2 spray NASAL TID PRN PRN NASAL DRYNESS #0 mL 05/27/22 sucralfate 1 gram tablet 1 g PO BID #0 tabs 05/27/22 insulin glargine-yfgn 100 unit/mL (3 mL) subcutaneous pen 40 unit (0.4 mL) subcut DAILY #0 mL 05/28/22 spironolactone 25 mg tablet 25 mg PO DAILY 06/03/22 torsemide 20 mg tablet 20 mg PO DAILY 06/03/22 amlodipine 5 mg tablet 5 mg PO DAILY #0 tabs 06/10/22 apixaban 5 mg tablet (Eliquis) 5 mg PO BID #0 tabs 06/10/22 insulin glargine-yfgn 100 unit/mL (3 mL) subcutaneous pen 10 unit (0.1 mL) subcut QHS #0 mL 06/10/22 insulin lispro 100 unit/mL subcutaneous pen (Humalog KwikPen (U-100) Insulin) 15 unit (0.15 mL) subcut TIDAC #0 mL 06/10/22 insulin lispro 100 unit/mL subcutaneous pen (Humalog KwikPen (U-100) Insulin) See Protocol subcut ACHS #0 mL 06/10/22 Hospital Course Operations None Procedures Dialysis Summary of Care Provided Hospital Course: Patient is a 76-year-old male admitted 06/03/2022 due to confusion and altered mentation. 1.? Acute hypoxic respiratory failure secondary to acute exacerbation of chronic COPD and acute on chronic heart failure with preserved ejection fraction, complicated by stage IV chronic kidney disease-initially on BiPAP.? Oxygen now stable on room air. 2.? Acute exacerbation of chronic COPD-completed IV steroids and prednisone burst X5 days.? As needed inhaler/aerosol. 3. Acute on chronic heart failure with preserved ejection fraction-torsemide and spironolactone initially held due to hypotension.? Continue dialysis.? Repeat chest x-ray with improvement in CHF.? Continue home diuretic regimen. 4. Acute encephalopathy-metabolic secondary to #1/2/#3.? MRI without stroke.? Noted likely chronic ischemic changes.? Encephalopathy now resolved. 5. Chronic kidney disease stage IV-Underwent tunneled dialysis catheter replacement 06/05/2022.? History of chronic kidney disease stage IIIb however recently worsened due to hemorrhagic shock.? Continue dialysis as scheduled and nephrology follow up. 6. Chronic atrial fibrillation- Continue metoprolol.? Per GI, may begin anticoagulation for stroke prevention.? Begin Eliquis 5 mg twice daily. 7. Chronic heart failure with preserved ejection fraction-no exacerbation. On torsemide, spironolactone. 8. Anemia of chronic disease-hemoglobin reduced from baseline due to recent GI bleed.? Hemoglobin stable. Trend CBC at rehab. 9. Type 2 diabetes mellitus with neuropathy-Continue home insulin regimen. Insulin adjusted during admission. Will likely need further adjustment to reach blood glucose goals. Would benefit from endocrinology follow-up at discharge. 10. Hypertension-losartan discontinued. Initiated on amlodipine 5 mg daily. May need increased pending further blood pressure monitoring. Continue meto prolol. 11. Hyperlipidemia-continue statin. 12. GERD with recent GI bleed-on PPI, Carafate. Follow-up with GI. 13. Chronic bilateral lower extremity venous stasis wounds-stable. 14. Morbid obesity- weight loss encouraged. 15.? Probable ANTHONY-recommend outpatient sleep study. Continue BIPAP QHS. Refer for PSG/pulmonary follow up. Physical Exam Const alert, oriented x3 and no apparent distress Nutritional Appearance: morbidly obese HEENT normocephalic and moist oral mucous membranes Eyes PERRL, EOMs intact bilaterally and conjunctivae normal Neck no lymphadenopathy Resp clear to auscultation bilaterally Auscultation: diminished lung sounds Cardio regular rate and no murmurs Cardio Narrative: Atrial fibrillation, rate controlled Peripheral Pulses: pulses 2+ throughout GI normal to inspection, nondistended, normoactive bowel sounds, non-tender and non-distended Extremity normal to inspection General Extremity: edema bilateral lower extremity Details: mild Skin no rashes or lesions noted Skin Narrative: Chronic skin changes bilateral lower extremities Lesions: no lesions Rashes: no rashes Trauma: no lacerations or abrasions Neuro CN's II-XII intact bilaterally, no focal motor deficits, no sensory deficits noted and deep tendon reflexes 2+ bilaterally Psych mental status grossly normal and affect normal Patient seen and examined prior to discharge. Physical assessment as noted above. Patient is stable for discharge with follow up recommendations as noted above. This patient was seen by CHESTER Mcqueen under the supervision of Dr. Perez. Time spent examining patient, reviewing data and subsequent management of care: 27 minutes Weight / BMI Weight Weight: 332 lb 10.841 oz Body Mass Index (BMI) 53.6 ABG / Lab / Microbiology Data Result Diagrams: 06/10/22 05:08 06/10/22 05:08 Laboratory: Laboratory Results - last 24 hr 06/09/22 16:14: POC Glucose 199 H 06/09/22 21:49: POC Glucose 393 H 06/10/22 05:08: WBC 7.9, RBC 3.20 L, Hgb 9.5 L, Hct 29.7 L, MCV 92.8, MCH 29.7, MCHC 32.0, RDW Std Deviation 51.8 H, RDW Coeff of [place] 15.1 H, Plt Count 103 L, MPV 9.8, Immature Gran % (Auto) 0.600, Neut % (Auto) 86.3 H, Lymph % (Auto) 5.9 L, [place] % (Auto) 7.1, Eos % (Auto) 0.1, Baso % (Auto) 0.0, Absolute Neuts (auto) 6.8, Absolute Lymphs (auto) 0.46 L, Nucleated RBC % 0, Differential Comment SCANNED 06/10/22 05:08: Sodium 132 L, Potassium 4.6, Chloride 98, Carbon Dioxide 26.0, Anion Gap 8, BUN 54 H, Creatinine 2.75 H, Estim Creat Clear Calc 20.70, Est GFR (MDRD) Af Amer 29 L, Est GFR (MDRD) Non-Af 24 L, BUN/Creatinine Ratio 19.6, Glu cose 291 H, Calcium 8.4 L 06/10/22 08:39: POC Glucose 245 H 06/10/22 11:29: POC Glucose 306 H Microbiology: Microbiology 06/04/22 17:22 Blood Culture (Wb) - Anticubital Right Blood Culture - Final No growth in 5 days. 06/04/22 10:26 Blood Culture (Wb) #2 - Dialysis/Fistula Bacteria Detection (PCR) - Final Staphylococcus epidermidis 06/04/22 10:26 Blood Culture (Wb) #2 - Dialysis/Fistula Blood Culture - Final Staphylococcus epidermidis 06/04/22 13:10 Catheter - Dialysis/Fistula Gram Stain - Final 06/03/22 18:00 Urine, Random Legionella Antigen - Final 06/03/22 18:00 Urine, Random Streptococcus pneumoniae Antigen (M - Final 06/03/22 20:25 Mucosa - Nasopharyngeal Respiratory Panel (PCR) - Final D/C Instructions Discharge Diet: Low fat / Low cholesterol, 2000 Calorie Control Diet, 2000 mg Sodium Diet and Carb Control Diet Call your doctor if you observe: Shortness of breath, Dizziness and Chest pain Meaningful Use Info Meaningful Use Diagnoses (Choose all that apply): None applicable Discharge Plan Admission Admit Date/Time: 06/03/22 19:57 Primary Reason for Your Visit: confusion, altered mental status Attending Provider: Sharona Perez Primary Care Provider: Néstor Felix Consulting Providers: Alvarado Sam ; Tonya Torres ; Almaz Holland ; Dulce Maria Kathleen ; Maynor Calvo Instructions Additional Instructions / Restrictions: Continue BIPAP QHS BIPAP rate 14, FIO2 21. Please refer/set up sleep study and pulmonary follow-up for probable sleep apnea. Please obtain weekly CBC and BMP at rehab. Discharge Orders/Prescriptions Prescriptions: New Eliquis 5 mg Tablet 5 mg PO BID Qty: 0 0RF insulin lispro [Humalog KwikPen Insulin] 100 unit/mL Insulin Pen 15 unit subcut TIDAC Qty: 0 0RF insulin lispro [Humalog KwikPen Insulin] 100 unit/mL Insulin Pen See Protocol subcut ACHS Qty: 0 0RF Protocol: 5. Sliding Scale Insulin High Dosing Condition: 150-209 mg/dl = 3 units Condition: 210-259 mg/dl = 6 units Condition: 260-324 mg/dl = 9 units Condition: 325-374 mg/dl = 12 units Condition: 375-409 mg/dl = 14 units Condition: 410-449 mg/dl = 16 units Condition: Greater than 449 call physician Protocol Text: - Use for Total Daily Dose of Insulin 81-120 units - Very insulin resistant or septic patients HIGH DOSING ALGORITHM insulin glargine-yfgn 100 unit/mL (3 mL) Insulin Pen 10 unit subcut QHS Qty: 0 0RF amlodipine 5 mg Tablet 5 mg PO DAILY Qty: 0 0RF Continued vitamin B complex 1 EACH capsule 1 ea PO DAILY cetirizine 10 mg Tablet 10 mg PO DAILY pravastatin 40 mg Tablet 40 mg PO QHS albuterol 90 mcg/actuation Aerosol 2 mcg INHALATION Q4H PRN PRN (Reason: Shortness Of Breath Or Wheezing) Rx Instructions: 2 puffs q4hr prn multivitamin Capsule 1 cap PO DAILY ezetimibe [Zetia] 10 mg Tablet 10 mg PO DAILY gabapentin 100 mg Tablet 100 mg PO TID cholecalciferol (vitamin D3) [Vitamin D3] 50 mcg (2,000 unit) Capsule 50 mcg PO DAILY azelastine-fluticasone 137-50 mcg/spray [place],Non-Aerosol 1 spray INTRANASAL BID Rx Instructions: administer into each nostril pantoprazole 40 mg Tablet,Delayed Release (Dr/Ec) 40 mg PO BID Qty: 0 0RF metoprolol tartrate 50 mg Tablet 50 mg PO BID Qty: 0 0RF [place] Nasal 0.65 % Aerosol,[place] 2 spray NASAL TID PRN PRN (Reason: NASAL DRYNESS) Qty: 0 0RF sucralfate 1 gram Tablet 1 g PO BID Qty: 0 0RF insulin glargine-yfgn 100 unit/mL (3 mL) Insulin Pen 40 unit subcut DAILY Qty: 0 0RF torsemide 20 mg Tablet 20 mg PO DAILY spironolactone 25 mg Tablet 25 mg PO DAILY Discontinued cyclobenzaprine 10 MG tablet 5 mg PO BID losartan 50 mg Tablet 50 mg PO DAILY Referrals / Follow Up: Alvarado Sam MD [NON-STAFF] - In 1 Week Almaz Holland MD [STAFF PHYSICIAN] - Within 1 Week (Follow up with nephrology at discharge, continue scheduled dialysis during admission) Raz Acosta DO [STAFF PHYSICIAN] - Within 1 Month Disposition Disposition (needs filled in before D/C Order can be placed): Inpatient Rehab Unit/Facility Documented by User: Dr. Sharona Perez MD 06/11/22 16:01 Providers Date of Admission: 06/03/22 Reason For Visit: encephalopathy,hypoxia,copd exacerbation Diagnosis Discharge Diagnosis (1) Acute encephalopathy: Status: Resolved Code(s): G93.40 - Encephalopathy, unspecified Medications at Discharge Home Medications vitamin B complex 1 ea PO DAILY supplement 10/24/16 albuterol 90 mcg/actuation aerosol inhaler 2 mcg inhalation Q4H PRN PRN Shortness Of Breath Or Wheezing 06/16/22 azelastine-fluticasone 137 mcg-50 mcg/spray nasal spray 1 spray intranasal BID allergies 05/08/22 cetirizine 10 mg tablet 10 mg PO DAILY allergies 05/08/22 cholecalciferol (vitamin D3) 50 mcg (2,000 unit) capsule (Vitamin D3) 50 mcg PO DAILY suppliment 05/08/22 ezetimibe 10 mg tablet (Zetia) 10 mg PO DAILY cholesterol 05/08/22 gabapentin 100 mg tablet 100 mg PO TID neuropathy 05/08/22 multivitamin 1 cap PO DAILY suppliement 05/08/22 pravastatin 40 mg tablet 40 mg PO QHS cholesterol 05/08/22 metoprolol tartrate 50 mg tablet 50 mg PO BID #0 tabs 05/27/22 pantoprazole 40 mg tablet,delayed release 40 mg PO BID #0 tabs 05/27/22 sodium chloride 0.65 % nasal spray aerosol ([place] Nasal) 2 spray NASAL TID PRN PRN NASAL DRYNESS #0 mL 05/27/22 sucralfate 1 gram tablet 1 g PO BID #0 tabs 05/27/22 insulin glargine-yfgn 100 unit/mL (3 mL) subcutaneous pen 40 unit (0.4 mL) subcut DAILY #0 mL 05/28/22 spironolactone 25 mg tablet 25 mg PO DAILY 06/03/22 torsemide 20 mg tablet 20 mg PO DAILY 06/03/22 amlodipine 5 mg tablet 5 mg PO DAILY #0 tabs 06/10/22 apixaban 5 mg tablet (Eliquis) 5 mg PO BID #0 tabs 06/10/22 insulin glargine-yfgn 100 unit/mL (3 mL) subcutaneous pen 10 unit (0.1 mL) subcut QHS #0 mL 06/10/22 insulin lispro 100 unit/mL subcutaneous pen (Humalog KwikPen (U-100) Insulin) 15 unit (0.15 mL) subcut TIDAC #0 mL 06/10/22 insulin lispro 100 unit/mL subcutaneous pen (Humalog KwikPen (U-100) Insulin) See Protocol subcut ACHS #0 mL 06/10/22 ABG / Lab / Microbiology Data Result Diagrams: 06/10/22 05:08 06/10/22 05:08 Discharge Plan Admission Admit Date/Time: 06/03/22 19:57 Primary Reason for Your Visit: confusion, altered mental status Attending Provider: Sharona Perez Primary Care Provider: Néstor Felix Consulting Providers: Alvarado Sam ; Tonya Torres ; Almaz Holland ; Dulce Maria Kathleen ; Maynor Calvo Instructions Additional Instructions / Restrictions: Continue BIPAP QHS BIPAP rate 14, FIO2 21. Please refer/set up sleep study and pulmonary follow-up for probable sleep apnea. Please obtain weekly CBC and BMP at rehab. Discharge Orders/Prescriptions Prescriptions: New Eliquis 5 mg Tablet 5 mg PO BID Qty: 0 0RF insulin lispro [Humalog KwikPen Insulin] 100 unit/mL Insulin Pen 15 unit subcut TIDAC Qty: 0 0RF insulin lispro [Humalog KwikPen Insulin] 100 unit/mL Insulin Pen See Protocol subcut ACHS Qty: 0 0RF Protocol: 5. Sliding Scale Insulin High Dosing Condition: 150-209 mg/dl = 3 units Condition: 210-259 mg/dl = 6 units Condition: 260-324 mg/dl = 9 units Condition: 325-374 mg/dl = 12 units Condition: 375-409 mg/dl = 14 units Condition: 410-449 mg/dl = 16 units Condition: Greater than 449 call physician Protocol Text: - Use for Total Daily Dose of Insulin 81-120 units - Very insulin resistant or septic patients HIGH DOSING ALGORITHM insulin glargine-yfgn 100 unit/mL (3 mL) Insulin Pen 10 unit subcut QHS Qty: 0 0RF amlodipine 5 mg Tablet 5 mg PO DAILY Qty: 0 0RF Continued vitamin B complex 1 EACH capsule 1 ea PO DAILY cetirizine 10 mg Tablet 10 mg PO DAILY pravastatin 40 mg Tablet 40 mg PO QHS albuterol 90 mcg/actuation Aerosol 2 mcg INHALATION Q4H PRN PRN (Reason: Shortness Of Breath Or Wheezing) Rx Instructions: 2 puffs q4hr prn multivitamin Capsule 1 cap PO DAILY ezetimibe [Zetia] 10 mg Tablet 10 mg PO DAILY gabapentin 100 mg Tablet 100 mg PO TID cholecalciferol (vitamin D3) [Vitamin D3] 50 mcg (2,000 unit) Capsule 50 mcg PO DAILY azelastine-fluticasone 137-50 mcg/spray [place],Non-Aerosol 1 spray INTRANASAL BID Rx Instructions: administer into each nostril pantoprazole 40 mg Tablet,Delayed Release (Dr/Ec) 40 mg PO BID Qty: 0 0RF metoprolol tartrate 50 mg Tablet 50 mg PO BID Qty: 0 0RF [place] Nasal 0.65 % Aerosol,[place] 2 spray NASAL TID PRN PRN (Reason: NASAL DRYNESS) Qty: 0 0RF sucralfate 1 gram Tablet 1 g PO BID Qty: 0 0RF insulin glargine-yfgn 100 unit/mL (3 mL) Insulin Pen 40 unit subcut DAILY Qty: 0 0RF torsemide 20 mg Tablet 20 mg PO DAILY spironolactone 25 mg Tablet 25 mg PO DAILY Discontinued cyclobenzaprine 10 MG tablet 5 mg PO BID losartan 50 mg Tablet 50 mg PO DAILY Referrals / Follow Up: Alvarado Sam MD [NON-STAFF] - In 1 Week Almaz Holland MD [STAFF PHYSICIAN] - Within 1 Week (Follow up with nephrology at discharge, continue scheduled dialysis during admission) Raz Acosta DO [STAFF PHYSICIAN] - Within 1 Month Disposition Disposition (needs filled in before D/C Order can be placed): Inpatient Rehab Unit/Facility Charges/Coding Addendum Addendum: Patient seen by Jaymie BRIGGS under my supervision Patient is a 68-year-old male with a past medical history as outlined [facility] with complaint of confusion with associated shortness of breath and wheezing as well as increased work of breathing. He required 2 L of oxygen though he usually was not on oxygen there. He was admitted and managed for acute hypoxic respiratory failure due to acute exacerbation of COPD and acute on chronic heart failure with preserved ejection fraction. Patient initially required BiPAP but was gradually transitioned off. He was placed on IV Solu-Medrol and breathing treatments of bronchodilators as well as diuresed. His diuretics were initially held on account of hypotension. His encephalopathy resolved. MRI showed no evidence of a stroke. Hospital course was complicated by SAQIB on CKD stage IV. He had placement of tunneled dialysis catheter and he was started on dialysis. Nephrology was on board. Patient's shortness of breath gradually resolved and he was weaned off of oxygen. Per patient and his family's request, a new prison was found for him as they were not happy with the one he had been in. He was discharged to group home facility on 06/11/2022. He is to follow-up with nephrology for d ialysis. He was also started on Eliquis for stroke prevention on account of chronic A. fib. He is to follow-up with his primary care doctor and nephrology. Patient seen and examined prior to discharge. He felt well and had no active complaints. Review of systems otherwise negative. Labs and vitals reviewed. Medication reviewed and reconciled. O/E: O/E Const alert, oriented x3 and no apparent distress, super morbid obesity General Appearance: cooperative HEENT normocephalic, head/scalp atraumatic, hearing grossly normal bilaterally and moist oral mucous membranes Eyes PERRL, EOMs intact bilaterally and conjunctivae normal Neck no lymphadenopathy, supple and no JVD Resp normal respiratory effort and clear to auscultation bilaterally Cardio regular rate, regular rhythm, S1 normal heart sound, S2 normal heart sound and no murmurs GI normal to inspection, nondistended, normoactive bowel sounds and soft to palpation Extremity normal to inspection, full ROM and no clubbing, cyanosis or edema; dialysis catheter in chest Skin no rashes or lesions noted Neuro oriented x3, CN's II-XII intact bilaterally and moves all extremities Sensorium / Orientation: awake and alert Psych affect normal Plan is for discharge to SNF. Rest as per Jaymie Mcclendon DRYING TUMBLER OPERATOR-'s note, which I have reviewed and endorsed. Total time I spent on the care and discharge of the patient was 30 mins, with Jaymie Mcclendon spending 27 mins, making a total of 57 mins. Visit Charges Inpatient E&M: 01623 Disch Hosp
--- NOTE | 2022-06-10 16:17 | CASEMGMT ---
DARIO spoke with Kenyetta and asked if they had everything they need for dialysis and she said they do. SW faxed orders, med list, and bipap settings to [facility]. DARIO spoke with patient's son Junior and let him know the address of [facility]. All in agreement with discharge plan. Plan: d/c to [facility]. [facility] will transport via cot. Simi MOTA
[2022-06-10 16:51] LABS: Bedside Glucose 255 mg/dL (74-106)
== END 2022-06-10 18:15 | DRG 190 ==
LOC: ED 19:43 → PCU 19:56
PROVIDERS: Anesthesiology; Internal Medicine; Nurse Practitioner Adult Health; Nurse Practitioner Family; Surgery; Admitting Provider Family Medicine; Emergency Provider Emergency Medicine; PCP Family Medicine; Visit Provider Student in an Organized Health Care Education/Training Program
PROC: 02HV33Z Insertion of Infusion Device into Superior Vena Cava, Percutaneous Approach (ICD-10-PCS; principal; 2022-06-05 07:15)
DX: J44.1 Chronic obstructive pulmonary disease with (acute) exacerbation (principal); G93.41 Metabolic encephalopathy; J96.01 Acute respiratory failure with hypoxia; N17.0 Acute kidney failure with tubular necrosis; I50.33 Acute on chronic diastolic (congestive) heart failure; N18.6 End stage renal disease; E87.1 Hypo-osmolality and hyponatremia; I13.2 Hypertensive heart and chronic kidney disease with heart failure and with stage 5 chronic kidney disease, or end stage renal disease; I48.20 Chronic atrial fibrillation, unspecified; Z68.43 Body mass index [BMI] 50.0-59.9, adult; D63.8 Anemia in other chronic diseases classified elsewhere; E11.22 Type 2 diabetes mellitus with diabetic chronic kidney disease; E11.40 Type 2 diabetes mellitus with diabetic neuropathy, unspecified; E66.01 Morbid (severe) obesity due to excess calories; Z99.2 Dependence on renal dialysis; Z79.4 Long term (current) use of insulin; D53.9 Nutritional anemia, unspecified; G47.33 Obstructive sleep apnea (adult) (pediatric); M48.061 Spinal stenosis, lumbar region without neurogenic claudication; E78.5 Hyperlipidemia, unspecified; K21.9 Gastro-esophageal reflux disease without esophagitis; E87.5 Hyperkalemia; D50.0 Iron deficiency anemia secondary to blood loss (chronic); I87.8 Other specified disorders of veins; S81.801A Unspecified open wound, right lower leg, initial encounter; S81.802A Unspecified open wound, left lower leg, initial encounter; Z87.891 Personal history of nicotine dependence; Z79.899 Other long term (current) drug therapy; X58.XXXA Exposure to other specified factors, initial encounter
CPT/HCPCS: 36415; 36600; 70450; 70551; 71045; 77001; 80048; 80053; 80069; 81001; 82140; 82803; 82962; 83605; 83880; 84145; 84484; 85025; 85610; 85730; 86850; 86900; 86901; 87040; 87149; 87186; 87205; 87449; 87633; 87635; 90937; 93005; 94002; 94003; 94640; 94667; 94668; 94762; 97110; 97162; 97166; 97530; 97535; 97802; 97803; 99285; J2997; J7030; J7050; A4216; C1750; G0257; J2405; U0003; U0005

== ENCOUNTER 2022-07-15 09:05 | Outpatient (RCR) | payer MEDICARE, SELFPAY | END 2022-07-23 23:59 | LOC: DC 09:05 | PROVIDERS: PCP Family Medicine; Referring Provider Nurse Practitioner Family; Visit Provider Nurse Practitioner Family | DX: E11.22 Type 2 diabetes mellitus with diabetic chronic kidney disease (principal); E78.5 Hyperlipidemia, unspecified; I12.0 Hypertensive chronic kidney disease with stage 5 chronic kidney disease or end stage renal disease; N18.6 End stage renal disease; Z99.2 Dependence on renal dialysis | CPT/HCPCS: G0108 ==

== ENCOUNTER 2022-07-31 12:53 | Outpatient (RCR) | payer MEDICARE, SELFPAY | END 2022-08-22 23:59 | LOC: DC 12:53 | PROVIDERS: PCP Family Medicine; Referring Provider Nurse Practitioner Family; Visit Provider Nurse Practitioner Family | DX: E11.22 Type 2 diabetes mellitus with diabetic chronic kidney disease (principal); E78.5 Hyperlipidemia, unspecified; I12.0 Hypertensive chronic kidney disease with stage 5 chronic kidney disease or end stage renal disease; N18.6 End stage renal disease; Z99.2 Dependence on renal dialysis | CPT/HCPCS: 97802 ==

== ENCOUNTER 2022-09-14 16:04 | Emergency (ER) | payer MEDICARE, SELFPAY ==
[2022-09-14 16:07] VITALS: BP 156/85; PULSE 75; RESP 16; TEMP 36.5; O2SAT 92; BMI 46.0
--- NOTE | 2022-09-14 16:20 | RAD_ITS ---
STUDY: X-RAY - LEFT SHOULDER REASON FOR EXAM: Male, 77 years old. pain TECHNIQUE: 2 view(s) of the shoulder. COMPARISON: None. FINDINGS: Normal glenohumeral articulation. Normal acromioclavicular joint. Normal acromion. Acute impacted fracture of the left humeral neck and head with mild separation of fracture fragments and associated avulsion of the greater tuberosity.. Diffuse soft tissue swelling of the shoulder is noted. Normal visualized pulmonary apex. RAD/Shoulder min 2 Views IMPRESSION: Acute impacted fracture of the left humeral neck and head with avulsion of the greater tuberosity Electronically Signed: Gregory Doyle MD at 17:10 EDT ,
--- NOTE | 2022-09-14 16:21 | EX.ED.UPPERE ---
HPI History of Present Illness Chief Complaint: Upper Extremity Injury Narrative Narrative: 77-year-old male presenting with left shoulder pain. He states he was in his electric wheelchair and he had a right and fell striking left shoulder. Patient states he did not hit his head or lose conscious. He is adamant about this. He states he does not have a headache or neck pain. He is on blood thinners and states he takes Eliquis. Patient states he is been otherwise healthy. He does not pain anywhere else. He states his left pinky feels a little bit numb but he is moving and is not having any pain there. [facility] Medical History Acute respiratory failure with hypoxia Anemia Atrial fibrillation, new onset Chronic back pain Chronic kidney disease, stage IV (severe) Chronic obstructive pulmonary disease COPD (chronic obstructive pulmonary disease) Debility Diabetes Gout Heart failure with preserved ejection fraction Hyperlipidemia Hypertension Hypertension Lumbar canal stenosis Morbid obesity Type 2 diabetes mellitus Home Medications vitamin B complex 1 ea PO DAILY supplement 10/24/16 [History Last Taken 11/16/16 06:00] albuterol 90 mcg/actuation aerosol inhaler 2 mcg inhalation Q4H PRN PRN Shortness Of Breath Or Wheezing 05/08/22 [History Last Taken Unknown] azelastine-fluticasone 137 mcg-50 mcg/spray nasal spray 1 spray intranasal BID allergies 05/08/22 [History Last Taken Unknown] cetirizine 10 mg tablet 10 mg PO DAILY allergies 05/08/22 [History Last Taken Unknown] cholecalciferol (vitamin D3) 50 mcg (2,000 unit) capsule (Vitamin D3) 50 mcg PO DAILY suppliment 05/08/22 [History Last Taken Unknown] ezetimibe 10 mg tablet (Zetia) 10 mg PO DAILY cholesterol 05/08/22 [History Last Taken Unknown] gabapentin 100 mg tablet 100 mg PO TID neuropathy 05/08/22 [History Last Taken Unknown] multivitamin 1 cap PO DAILY suppliement 05/08/22 [History Last Taken Unknown] pravastatin 40 mg tablet 40 mg PO QHS cholesterol 05/08/22 [History Last Taken Unknown] metoprolol tartrate 50 mg tablet 50 mg PO BID #0 tabs 05/27/22 [Rx Last Taken Unknown] pantoprazole 40 mg tablet,delayed release 40 mg PO BID #0 tabs 05/27/22 [Rx Last Taken Unknown] sodium chloride 0.65 % nasal spray aerosol (Deep Sea Nasal) 2 spray NASAL TID PRN PRN NASAL DRYNESS #0 mL 05/27/22 [Rx Last Taken Unknown] insulin glargine-yfgn 100 unit/mL (3 mL) subcutaneous pen 40 unit (0.4 mL) subcut DAILY #0 mL 05/28/22 [Rx Last Taken Unknown] spironolactone 25 mg tablet 25 mg PO DAILY 06/03/22 [History Last Taken Unknown] torsemide 20 mg tablet 20 mg PO DAILY 06/03/22 [History Last Taken Unknown] amlodipine 5 mg tablet 5 mg PO DAILY #0 tabs 06/10/22 [Rx Last Taken Unknown] apixaban 5 mg tablet (Eliquis) 5 mg PO BID #0 tabs 06/10/22 [Rx Last Taken Unknown] insulin glargine-yfgn 100 unit/mL (3 mL) subcutaneous pen 10 unit (0.1 mL) subcut QHS #0 mL 06/10/22 [Rx Last Taken Unknown] insulin lispro 100 unit/mL subcutaneous pen (Humalog KwikPen (U-100) Insulin) 15 unit (0.15 mL) subcut TIDAC #0 mL 06/10/22 [Rx Last Taken Unknown] insulin lispro 100 unit/mL subcutaneous pen (Humalog KwikPen (U-100) Insulin) See Protocol subcut ACHS #0 mL 06/10/22 [Rx Last Taken Unknown] losartan 100 mg tablet tablet PO 07/15/22 [History Last Taken Unknown] acetaminophen 500 mg capsule 1,000 mg PO Q6H PRN 09/04/22 [History Last Taken Unknown] balsam selena-castor oil topical ointment in packet 1 applic topical Q12H PRN 09/04/22 [History Last Taken Unknown] dutasteride 0.5 mg capsule 0.5 mg PO DAILY 09/04/22 [History Last Taken Unknown] oxycodone-acetaminophen 5 mg-325 mg tablet (Percocet) 1 tab PO BID PRN 09/04/22 [History Last Taken Unknown] Allergy/AdvReac Type Severity Reaction Status Date / Time grass pollen Allergy Hives Verified 09/14/22 16:07 Latex, Natural Rubber Allergy Unknown Verified 09/14/22 16:07 Penicillins Allergy Rash Verified 09/14/22 16:07 Surgical History History of bilateral knee replacement History of cholecystectomy History of elbow surgery Social History housing: custodial Smoking Status: Former smoker alcohol intake: never substance use type: does not use ROS ROS ED Constitutional Constitutional ED: Denies chills or fever(s) Eyes Eyes: Denies change in vision ENT ENT ED: Denies rhinorrhea or sore throat Cardiovascular Cardiovascular: Denies chest pain or palpitations Respiratory/Chest Respiratory/Chest: Denies cough or dyspnea Gastrointestinal Gastrointestinal: Denies abdominal pain or constipation Genitourinary Genitourinary ED: Denies dysuria or hematuria Musculoskeletal Musculoskeletal: Reports other Details: Left shoulder pain ; Denies back pain or neck pain Integumentary Denies abscess or Abrasions Neurologic Neurologic: Denies headache(s) Psychiatric Psychiatric: Denies anxiety or depression EXAM Physical Exam Const Vital Signs: 09/14/22 16:07 Temperature 97.7 F L Temperature Source Oral Pulse Rate 75 Respiratory Rate 16 Blood Pressure 156/85 H Blood Pressure Mean 108 Pulse Ox 92 Oxygen Delivery Method Room Air Positive well nourished and obese General Appearance ED: NAD Nutritional Appearance: obese HEENT Reports moist mucous membranes normocephalic and atraumatic Eyes PERRL and EOMs intact bilaterally Neck full ROM General: Negative for tenderness Chest Wall inspection of chest normal Chest Narrative: No pain over the clavicle on the left Cardio regular rate Extremity Extremity Narrative: Left shoulder tenderness to palpation over the shoulder girdle. Limited range of motion of the left shoulder secondary to pain. There is some mild proximal humerus pain as well. No lacerations or abrasions. Sensation intact over the deltoid on the left. Patient has no pain below the level of the left shoulder. Neuro oriented x3 and CN's II-XII intact bilaterally Sensorium / Orientation: alert Motor Exam: strength 5/5 throughout Skin Lesions: no lesions Rashes: no rashes MDM MDM MDM Narrative Medical decision making narrative: Patient transported per EMS after having fall from his electric wheelchair. He states he was given fentanyl prior to arrival and his pain is tolerable. He adamantly denies hitting his head or having any neck pain. He is on Eliquis. No lacerations or abrasions. We will obtain a left shoulder x-ray. Patient states he does not need anything for pain currently. Views of the left shoulder on my interpretation show a avulsion fracture of the greater tuberosity as well as an impacted proximal humerus fracture. Radiologist interprets this and agree. Patient placed in a sling. He will be given [place] for pain. He is given follow-up with Dr. Gu from orthopedics. Return precautions discussed. Impression: 1. Fall from electric wheelchair 2. Left shoulder fracture Lab Data Attestation: I reviewed the patient's lab results. Discharge Plan Triage Chief Complaint: Upper Extremity Injury ED Provider: Dewey Osorio Dx/Rx/DC Orders Instructions: ED Fracture, Shoulder Prescriptions: No Action losartan 100 mg tablet PO balsam selena-castor oil Ointment In Packet 1 applic topical Q12H PRN acetaminophen 500 mg capsule 1,000 mg PO Q6H PRN dutasteride 0.5 mg capsule 0.5 mg PO DAILY oxycodone-acetaminophen [Percocet] 5-325 mg tablet 1 tab PO BID PRN vitamin B complex 1 EACH capsule 1 ea PO DAILY cetirizine 10 mg Tablet 10 mg PO DAILY pravastatin 40 mg Tablet 40 mg PO QHS albuterol 90 mcg/actuation Aerosol 2 mcg INHALATION Q4H PRN PRN (Reason: Shortness Of Breath Or Wheezing) Rx Instructions: 2 puffs q4hr prn multivitamin Capsule 1 cap PO DAILY ezetimibe [Zetia] 10 mg Tablet 10 mg PO DAILY gabapentin 100 mg Tablet 100 mg PO TID cholecalciferol (vitamin D3) [Vitamin D3] 50 mcg (2,000 unit) Capsule 50 mcg PO DAILY azelastine-fluticasone 137-50 mcg/spray [place],Non-Aerosol 1 spray INTRANASAL BID Rx Instructions: administer into each nostril pantoprazole 40 mg Tablet,Delayed Release (Dr/Ec) 40 mg PO BID Qty: 0 0RF metoprolol tartrate 50 mg Tablet 50 mg PO BID Qty: 0 0RF Deep Sea Nasal 0.65 % Aerosol,[place] 2 spray NASAL TID PRN PRN (Reason: NASAL DRYNESS) Qty: 0 0RF insulin glargine-yfgn 100 unit/mL (3 mL) Insulin Pen 40 unit subcut DAILY Qty: 0 0RF torsemide 20 mg Tablet 20 mg PO DAILY spironolactone 25 mg Tablet 25 mg PO DAILY Eliquis 5 mg Tablet 5 mg PO BID Qty: 0 0RF insulin lispro [Humalog KwikPen Insulin] 100 unit/mL Insulin Pen 15 unit subcut TIDAC Qty: 0 0RF insulin lispro [Humalog KwikPen Insulin] 100 unit/mL Insulin Pen See Protocol subcut ACHS Qty: 0 0RF Protocol: 5. Sliding Scale Insulin High Dosing Condition: 150-209 mg/dl = 3 units Condition: 210-259 mg/dl = 6 units Condition: 260-324 mg/dl = 9 units Condition: 325-374 mg/dl = 12 units Condition: 375-409 mg/dl = 14 units Condition: 410-449 mg/dl = 16 units Condition: Greater than 449 call physician Protocol Text: - Use for Total Daily Dose of Insulin 81-120 units - Very insulin resistant or septic patients HIGH DOSING ALGORITHM insulin glargine-yfgn 100 unit/mL (3 mL) Insulin Pen 10 unit subcut QHS Qty: 0 0RF amlodipine 5 mg Tablet 5 mg PO DAILY Qty: 0 0RF Primary Care Provider: Sun Avalos Referrals: Patel Gu MD [Med Staff - Active Staff] - As soon as possible [facility],Out of [Non-Staff] - Disposition Disposition: Home, Self Care
[2022-09-14] MEDS: HYDROcodone Bitartrate/Apap 5/325 Tablet PO (17:42)
[2022-09-14 18:05] VITALS: BP 147/82; PULSE 70; RESP 18; O2SAT 94
--- NOTE | 2022-09-14 18:22 | ED.RN ---
Into room to apply sling/swathe w/dry pan charger Alyssa. Pt lives alone and has mobility issues at baseline. Concerned regarding pt's ability to safely go home. Discussed w/family that was present. They are unable to spend the night with the pt to assist if needed. Pt was able to get up w/1 assist out of bed. Gait mostly steady while holding RN's hand to walk as cane was not available to use. Pt normally uses a walker and rollator at home. Pt states he does sleep in a lift chair recliner at night so would have assist getting up out of it. Family spoke w/pt's son who is HCPOA on the phone, he does not feel pt is safe to go home by himself. Pt states I think I will be ok. Re-enforced to pt we just want to be certain he is safe to be home and not fall again. Discussed w/Dr Osorio who stated he would speak with the pt & his family regarding discharge plan of care.
--- NOTE | 2022-09-14 18:57 | ED.RN ---
Dr Osorio discussed discharge plan with pt & family and pt is going to go home on discharge. D/C with family w/instructions.
== END 2022-09-14 19:01 | disposition home or self-care (01) ==
PROVIDERS: Emergency Provider Student in an Organized Health Care Education/Training Program; PCP Family Medicine; Visit Provider Student in an Organized Health Care Education/Training Program
DX: S42.92XA Fracture of left shoulder girdle, part unspecified, initial encounter for closed fracture (principal); J44.9 Chronic obstructive pulmonary disease, unspecified; I13.0 Hypertensive heart and chronic kidney disease with heart failure and stage 1 through stage 4 chronic kidney disease, or unspecified chronic kidney disease; I50.30 Unspecified diastolic (congestive) heart failure; E11.22 Type 2 diabetes mellitus with diabetic chronic kidney disease; N18.4 Chronic kidney disease, stage 4 (severe); S42.202A Unspecified fracture of upper end of left humerus, initial encounter for closed fracture; E78.5 Hyperlipidemia, unspecified; Z87.891 Personal history of nicotine dependence; Z79.01 Long term (current) use of anticoagulants; E66.9 Obesity, unspecified; W05.0XXA Fall from non-moving wheelchair, initial encounter
CPT/HCPCS: 73030; 99284

== ENCOUNTER → 2022-10-21 | Outpatient (REF) | payer MEDICARE, SELFPAY ==
[2022-10-21 08:37] LABS: Hematocrit 36.6 % (40-54); Hemoglobin 11.4 g/dL (13.0-16.5); Mean Corp Hgb Conc 31.1 g/dL (32-36); Mean Corpuscular Hgb 30.3 pg (27.0-32.0); Mean Corpuscular Volume 97.3 fL (80-94); Mean Platelet Vol. 10.7 fl (6.2-12.0); Platelet Count 140 K/mm3 (150-450); RBC Distribution Width CV 15.7 % (11.6-14.6); RBC Distribution Width SD 55.8 fl (35.1-43.9); Red Blood Count 3.76 M/mm3 (4.6-6.2); White Blood Count 6.8 K/mm3 (4.4-11.0)
[2022-10-21 08:43] LABS: Albumin, Serum 3.2 g/dL (3.2-5.0); BUN 49 mg/dL (7-18); BUN/Creat Ratio 24.4 RATIO (10-20); Calcium,Total 8.9 mg/dL (8.5-10.1); Chloride 108 mmol/L (98-107); Creatinine, Serum 2.01 mg/dL (0.70-1.30); EST Glomerular Filtration Rate 34 mL/min (>60); Est Glom Filt Rate - Afr Amer 41 mL/min (>60); Glucose 183 mg/dL (74-106); Potassium 4.6 mmol/L (3.5-5.1); Sodium Level 138 mmol/L (136-145)
[2022-10-21 08:56] LABS: Protein, Urine (Random) 10.3 mg/dL (<11.9); Protein:Creat Ratio 155 mg/g CRE (0-200)
[2022-10-21 09:02] LABS: Vitamin D,25 Hydroxy 57.8 ng/mL
[2022-10-21 09:29] LABS: PTHIN 92.3 pg/mL (18.4-80.1)
== END ==
LOC: OLS.WCC 05:00
PROVIDERS: PCP Family Medicine; Visit Provider Family Medicine
DX: N18.4 Chronic kidney disease, stage 4 (severe) (principal)
CPT/HCPCS: 36415; 80069; 82306; 82570; 83970; 84156; 85027

== ENCOUNTER → 2022-10-24 | Outpatient (REF) | payer MEDICARE, SELFPAY ==
[2022-10-24 09:24] LABS: Hemoglobin 10.7 g/dL (13.0-16.5); Mean Corp Hgb Conc 31.5 g/dL (32-36); Mean Corpuscular Hgb 29.4 pg (27.0-32.0); Mean Corpuscular Volume 93.4 fL (80-94); Mean Platelet Vol. 11.1 fl (6.2-12.0); Platelet Count 153 K/mm3 (150-450); RBC Distribution Width CV 15.4 % (11.6-14.6); RBC Distribution Width SD 52.7 fl (35.1-43.9); Red Blood Count 3.64 M/mm3 (4.6-6.2); White Blood Count 7.4 K/mm3 (4.4-11.0)
[2022-10-24 09:43] LABS: Anion Gap 8 (5-15); BUN 56 mg/dL (7-18); BUN/Creat Ratio 27.9 RATIO (10-20); Calcium,Total 8.8 mg/dL (8.5-10.1); Chloride 110 mmol/L (98-107); Cholesterol 86 mg/dL (200); Creatinine, Serum 2.01 mg/dL (0.70-1.30); EST Glomerular Filtration Rate 34 mL/min (>60); Est Glom Filt Rate - Afr Amer 41 mL/min (>60); Glucose 212 mg/dL (74-106); High Density Lipoprotein 40 mg/dL; Potassium 4.4 mmol/L (3.5-5.1); Sodium Level 139 mmol/L (136-145); Triglycerides 98 mg/dL; Very Low Density Lipoprotein 20 mg/dL (5-40)
[2022-10-24 10:14] LABS: Hemoglobin A1c 7.4 % (3.8-5.6)
== END ==
LOC: OLS.WCC 05:00
PROVIDERS: PCP Family Medicine; Visit Provider Family Medicine
DX: I48.91 Unspecified atrial fibrillation (principal); J44.9 Chronic obstructive pulmonary disease, unspecified; I50.9 Heart failure, unspecified; I11.0 Hypertensive heart disease with heart failure; E11.9 Type 2 diabetes mellitus without complications; E78.5 Hyperlipidemia, unspecified
CPT/HCPCS: 36415; 80048; 80061; 83036; 85027

== ENCOUNTER 2022-10-29 08:30 | Day surgery (SDC) | payer MEDICARE, SELFPAY ==
[2022-10-29] VITALS (7 sets, daily range): BP systolic 92–170; BP diastolic 44–85; PULSE 65–82; RESP 16; TEMP 36.3–36.5; O2SAT 92–98; BMI 42.9
[2022-10-29 09:10] LABS: Bedside Glucose 230 mg/dL (74-106)
[2022-10-29] MEDS: 0.9% Normal Saline 1,000 ML 15 ML IV (09:34)
--- NOTE | 2022-10-29 09:49 | PCM.HP.BLA ---
History and Physical Date of Admission: 10/29/22 77 M who presents to the office today for f/u hospitalization in May 2022; one of the multiple reasons for his admission was GI bleed. He had been started on high dose eliquis prior to that time. Now he remains on eliquis [address] Acosta found oozing gastric ulcers and medium sized hiatal hernia on EGD, and then found 10 large polyps and one small polyp on colonoscopy, as well as severe diverticulosis with active bleeding for which clips were placed. Pathology: villous adenomas and tubulovillous adenomas; Dr Acosta recommends repeat colonoscopy in one yr. No GI complaints. Didn't have pain when he had gastric ulcers. No abnormal bleeding.? He denies nausea, vomiting, hematemesis, dysphagia.? His acid reflux is controlled with pantoprazole 40 mg daily.? Bowels are moving well.? No diarrhea, constipation, melena, hematochezia.? He completed 3 months of sucralfate therapy +3 months of twice daily dosing of pantoprazole 40 mg for the gastric ulcers. He has had intentional weight loss from 358 lbs in Summer 2021 to 288 lbs now. Cooks for himself at home. Hemodialysis is now needed only 2 days/week. 05/16/22 EGD Impression: ? - Normal esophagus. ? - Medium-sized hiatal hernia. ? - Oozing gastric ulcers with pigmented ? material. Treated with a heater probe. ? - Normal first portion of the duodenum. ? - No specimens collected. 05/20/22 Colonoscopy Impression: ? - Ten large polyps in the rectum, in the ? sigmoid colon, in the transverse colon, at the ? hepatic flexure and in the ascending colon, ? removed with a hot snare. Resected and ? retrieved. ? - Severe diverticulosis in the sigmoid colon. ? There was active bleeding coming from the ? diverticular opening. Injected. Clips were ? placed. ? - One 5 mm polyp in the rectum. Biopsied. Clip ? was placed. ? - The examined portion of the ileum was normal. MICROSCOPIC DIAGNOSIS A.? Ascending colon polyp, biopsy: ?Fragments of tubulovillous adenoma. B.? Splenic flexure polyp, biopsy: ?Fragments of villous adenoma. C.? Sigmoid polyp, biopsy: ?Fragments of tubulovillous adenoma. D.? Polyp rectum, biopsy: ?A fragment of villous adenoma ROS Const Constitutional: Positive for weight change; No fatigue ENT ENT: No difficulty swallowing Gastro GI: Positive for constipation, diarrhea, heartburn and excessive flatus; No abdominal pain, belching, bloating, change in bowel habits, change in stool character, coffee ground emesis, cramping, difficulty swallowing, feeling full early, incontinent of stools, Vomiting blood/hematemesis, Blood in stool, loose stools, Black,tarry stools, nausea/dyspepsia, pain with swallowing, vomiting or other Musc Musculoskeletal: Positive for joint pain, back pain and joint swelling Skin Skin: No yellowing of the eye or itchy eyes Psych Psychiatric: No anxiety and No depression Endo Endocrine: Positive for weight change; No fatigue Aller/Imm Allergy/Immunologic: No itchy eyes Ricardo/Lymp Hematologic/Lymphatic: No easy bleeding or easy bruising Exam Const General: cooperative, comfortable and no acute distress Nutritional Appearance: obese Other: Uses motorized scooter [facility] Head: normal to inspection Eyes General: appearance normal, both eyes and all related structures Resp Effort & Inspection: normal respiratory effort GI Inspection: obesity Palpation: soft Quality Reporting Tobacco Screening ([facility] 138) Smoking Status: Former smoker Assessment and Plan Assessment and Plan (1) Gastric ulcer: ?Status:?Acute ?Plan: 77-year-old male with history of GI bleed in April 2022 from diverticular disease.? No GI bleeding since that time.? His labs are monitored routinely for hemodialysis.? For gastric ulcers he completed 3 months of sucralfate and 3 months of BID dosing of PPI, now he takes pantoprazole 40 mg QAM, plan is to continue that indefinitely. Can d/c sucralfate. Will schedule repeat egd to ensure resolution of gastric ulcers. Will need repeat colonoscopy in Summer 2022 to f/u multiple polyps--villous adenomas and tubulovillous adenomas. (2) Tubulovillous adenoma of colon: ?Status:?Acute ?Plan: As above (3) Villous adenoma of colon: ?Status:?Acute ?Plan: As above (4) GERD (gastroesophageal reflux disease): ?Status:?Acute ?Plan: As above I have examined the patient and the H&P has been reviewed. There are no clinical changes since date of exam.
--- NOTE | 2022-10-29 10:00 | EGD_PTH ---
PATIENT: LUCRECIA VAZQUEZ LOC: EN U#:[id number] AGE/SX: 77/M ROOM: RE10/29/[address]: Dr. Raz Acosta DO : 1945 BED: DIS: 10/29/2022 SPEC #: [id number] RECD: 10/29/22 12:42 STATUS: LOVELY BESS #: [id number] JOSE: 10/29/22 10:[address]: Raz Acosta DEPT: SURGICAL PATHOLOGY RECD BY: Marleni Villafana ENTERED: 10/29/22 13:25 SP TYPE: EGD [facility] DR: Sun Avalos DO Tissues: A - Gastric mucous membrane B - Esophagus, NOS Procedures: Surgery Specimen Level IV HEADER OPERATION: EGD ([facility]), biopsy PRE-OP DIAGNOSIS: Gastric ulcer, tubulovillous adenoma of colon, GERD TISSUE SUBMITTED: A ? Gastric antrum biopsy for histo and H. pylori, B ? Distal esophagus biopsy MICROSCOPIC DIAGNOSIS A. Gastric antrum, biopsy: Focal ulceration with associated fibrinopurulent material and granulation. Chronic gastritis. See comment. B. Distal esophagus, biopsy: Gastroesophageal junction with chronic inflammation. 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 No evidence of dysplasia. See comment. AM:ace 10/30/2022 COMMENT A. The results of immunohistochemistry for Helicobacter pylori will be reported separately ([id number]). B. Immunohistochemistry ([id number]) for P53 and Ki-67 will be performed and results will be reported separately. Alcian blue/PAS stain with matched control supports the above diagnosis. MICROSCOPIC DESCRIPTION Slides are reviewed. GROSS DESCRIPTION A - Received in fixative is one container labeled with the patient's name and designated gastric antrum biopsy. The specimen consists of two irregular fragments of light cardenas soft tissue that in aggregate measure 0.8 x 0.2 x 0.1 cm. The specimen is totally submitted in one cassette. B - Received in fixative is one container labeled with the patient's name and designated distal esophagus biopsy. The specimen consists of multiple irregular fragments of light cardenas soft tissue that in aggregate measure 1 x 0.3 x 0.1 cm. The specimen is totally submitted in one cassette. / MEL:ace 10/29/2022 TC:3 CPT: 41850 x2, 53719
--- NOTE | 2022-10-29 10:00 | IMM_PTH ---
PATIENT: LUCRECIA VAZQUEZ LOC: EN U#:[id number] AGE/SX: 77/M ROOM: RE10/29/[address]: Dr. Raz Acosta DO : 1945 BED: DIS: 10/29/2022 SPEC #: [id number] RECD: 10/29/22 15:16 STATUS: LOVELY REEarnest #: [id number] JOSE: 10/29/22 10:[address]: Raz Acosta DEPT: IMMUNOHISTOCHEMISTRY RECD BY: Ella Harman ENTERED: 10/29/22 15:17 SP TYPE: IMMUNO OTHR DR: Sun Avalos DO Tissues: A - Stomach, NOS B - Esophagus, NOS Procedures: H Pylori (initial) PHYSICIAN & INSTITUTION [place] [id number] SPECIMEN INFORMATION: Tissue Source: A ? Gastric antrum, B ? Distal esophagus Clinical Info: Gastric ulcer, tubulovillous adenoma of colon, GERD Specimen Number: [id number] A & B CPT code: 44161 x2, 56336 METHODOLOGY: Deparaffinized sections of prefer/formalin-fixed tissue or PAP/DQ stained slides are incubated with monoclonal/polyclonal antibodies/oligonucleotide probes. Localization is made via biotin free immunoperoxidase method. Appropriate controls are performed and reacted as expected. Results on target cell population are indicated in the following table: RESULTS: ANTIBODY / CLONE RESULT Block A H Pylori (polyclonal) negative Block B P53 (DO-7) negative Ki-67 (30-9) positive, low These tests were developed and their performance characteristics determined by [facility]. They may not have been cleared or approved by the U.S. Food and Drug Administration. The FDA has determined that such clearance or approval is not necessary. The above immunohistochemical/dualISH markers are ordered and reviewed by the Pathologist. INTERPRETATION: A. Gastric antrum, biopsy: Negative for Helicobacter pylori organisms. B. Distal esophagus, biopsy: No evidence of dysplasia. AM:ace 10/31/2022
--- NOTE | 2022-10-29 10:13 | OP.EGD_ITS ---
Patient Name: Vahid Diallo Procedure Date: 10/29/2022 9:51 AM Date of : 1945 Age: 77 Procedure: Upper GI endoscopy Indications: Chronic peptic ulcer with hemorrhage Providers: Raz Acosta DO Medicines: Monitored Anesthesia Care Patient Profile: This is a 77 year old male. Refer to note in patient chart for documentation of history and physical. Patient has symptoms of chronic epigastric abdominal pain and chronic heartburn. Complications: No immediate complications. Procedure: Pre-Anesthesia Assessment: - Prior to the procedure, a History and Physical was performed, and patient medications and allergies were reviewed. The risks and benefits of the procedure and the sedation options and risks were discussed with the patient. All questions were answered and informed consent was obtained. Patient identification and proposed procedure were verified by the physician. Mental Status Examination: normal. Prophylactic Antibiotics: The patient does not require prophylactic antibiotics. Prior Anticoagulants: The patient has taken no previous anticoagulant or antiplatelet agents. ASA Grade Assessment: II - A patient with mild systemic disease. After reviewing the risks and benefits, the patient was deemed in satisfactory condition to undergo the procedure. The anesthesia plan was to use monitored anesthesia care (MAC). Immediately prior to administration of medications, the patient was re-assessed for adequacy to receive sedatives. The heart rate, respiratory rate, oxygen saturations, blood pressure, adequacy of pulmonary ventilation, and response to care were monitored throughout the procedure. The physical status of the patient was re-assessed after the procedure. After obtaining informed consent, the endoscope was passed under direct vision. Throughout the procedure, the patient's blood pressure, pulse, and oxygen saturations were monitored continuously. The gastroscope was introduced through the mouth, and advanced to the second part of duodenum. The upper GI endoscopy was accomplished without difficulty. The patient tolerated the procedure well. Scope In: 10:01:50 AM Scope Out: 10:07:26 AM Total Procedure Duration Time 0 hours 5 minutes 36 seconds Findings: The Z-line was irregular and was found 37 cm from the incisors. Biopsies were taken with a cold forceps for histology. Verification of patient identification for the specimen was done. Estimated blood loss was minimal. A medium-sized hiatal hernia was present. Localized mild inflammation characterized by congestion (edema) and granularity was found in the gastric antrum. Biopsies were taken with a cold forceps for histology. Verification of patient identification for the specimen was done. Estimated blood loss was minimal. Mild gastric antral vascular ectasia without bleeding was present in the stomach. The first portion of the duodenum was normal. Impression: - Z-line irregular, 37 cm from the incisors. Biopsied. - Medium-sized hiatal hernia. - Gastritis. Biopsied. - Gastric antral vascular ectasia without bleeding. - Normal first portion of the duodenum. Recommendation: - Discharge patient to home. - Resume previous diet. - Continue present medications. - Await pathology results. - Repeat upper endoscopy in 1 year for surveillance. Procedure Code(s): --- Professional --- 49725, Esophagogastroduodenoscopy, flexible, transoral; with biopsy, single or multiple CPT copyright 2017 [employer]. All rights reserved. The codes documented in this report are preliminary and upon factory manager review may be revised to meet current compliance requirements. Raz Acosta DO 10/29/2022 10:12:56 AM This report has been signed electronically. Number of Addenda: 0 Note Initiated On: 10/29/2022 9:51 AM
--- NOTE | 2022-10-29 10:13 | OP.CCLET_ITS ---
10/29/2022 Sun Avalos Do Re : Upper GI endoscopy procedure for Vahid Diallo Dear Robbie This procedure was performed on Saturday, October 29, 2022. My impressions and recommendations are as follows: Impressions : - Z-line irregular, 37 cm from the incisors. Biopsied. - Medium-sized hiatal hernia. - Gastritis. Biopsied. - Gastric antral vascular ectasia without bleeding. - Normal first portion of the duodenum. Recommendations : - Discharge patient to home. - Resume previous diet. - Continue present medications. - Await pathology results. - Repeat upper endoscopy in 1 year for surveillance. My findings are described in the full procedure note, which is enclosed. If I can be of further assistance, please feel free to contact me at . Sincerely, Raz Acosta, 10/29/2022 10:12:56 AM This report has been signed electronically.
== END 2022-10-29 11:02 | disposition home or self-care (01) ==
LOC: EN 08:32 → AC 08:33
PROVIDERS: PCP Family Medicine; Referring Provider Family Medicine; Visit Provider Internal Medicine Gastroenterology
PROC: 0DJ08ZZ Inspection of Upper Intestinal Tract, Via Natural or Artificial Opening Endoscopic (ICD-10-PCS; CPT 43235; principal; 2022-10-29 09:55)
DX: K31.819 Angiodysplasia of stomach and duodenum without bleeding (principal); J44.9 Chronic obstructive pulmonary disease, unspecified; I50.30 Unspecified diastolic (congestive) heart failure; I11.0 Hypertensive heart disease with heart failure; I48.91 Unspecified atrial fibrillation; Z79.4 Long term (current) use of insulin; E11.9 Type 2 diabetes mellitus without complications; K44.9 Diaphragmatic hernia without obstruction or gangrene; K21.9 Gastro-esophageal reflux disease without esophagitis; K29.50 Unspecified chronic gastritis without bleeding; K22.70 Barrett's esophagus without dysplasia; Z79.01 Long term (current) use of anticoagulants; Z79.899 Other long term (current) drug therapy; Z87.891 Personal history of nicotine dependence
CPT/HCPCS: 43239; 82962; 88305; 88342; J7030; J7120; J2405

== ENCOUNTER → 2022-11-27 | Outpatient (CLI) | payer MEDICARE, SELFPAY ==
--- NOTE | 2022-11-27 14:58 | CT_ITS ---
INDICATION: liver nodule on CT 04/2022 EXAMINATION: CT ABDOMEN WITH IV CONTRAST CT Abdomen W/ Contrast Injection TECHNIQUE: Helically acquired images were obtained of the abdomen following IV contrast. A radiation dose optimization technique was used for this scan. IV Contrast dosage and agent: Oral contrast: None. COMPARISON: May 16, 2022 FINDINGS: Examination is limited, hepatic protocol imaging was not performed. A single phase abdominal CT with contrast was performed. Liver lesions cannot be characterized. Some diagnostic information is available. Liver is probably mildly cirrhotic. There is a 1.1 cm intensely enhancing nodule in the perihilar segment 4A. Gallbladder is removed. There is minor physiologic intrahepatic and extra hepatic biliary dilation. There is a benign calcified granuloma in the left hepatic lobe. There is no ascites. Portal vein is patent. Spleen is normal. Pancreas is normal. Adrenals are intact. Kidneys contain simple bilateral cysts which do not require follow-up imaging. There is no hydronephrosis. There is no upper abdominal lymphadenopathy. There is no bowel obstruction. Upper abdominal skeleton is intact. Aorta is normal caliber. There is extensive coronary and aortic atherosclerosis. Lung bases are clear with atelectasis. CT/Abdomen WITH IV Contrast IMPRESSION: 1. Stable 1.1 cm hepatic nodule. Recommend hepatic specific imaging for full characterization. 2. Possibly mild cirrhosis, consider confirmatory imaging such as liver US and labs. Electronically Signed: Amparo Feliz MD at 8:56 EST ,
[2022-11-27 15:40] LABS: CREATININE FINGERSTICK 1.9 mg/dL (0.70-1.30)
== END | disposition home or self-care (01) ==
LOC: CT 14:57
PROVIDERS: PCP Family Medicine; Referring Provider Nurse Practitioner Adult Health; Visit Provider Nurse Practitioner Adult Health
DX: K76.89 Other specified diseases of liver (principal)
CPT/HCPCS: 74160; Q9967

== ENCOUNTER → 2022-12-16 | Outpatient (CLI) | payer MEDICARE, SELFPAY ==
[2022-12-16 16:23] LABS: Hematocrit 43.1 % (40-54); Hemoglobin 13.9 g/dL (13.0-16.5); Mean Corp Hgb Conc 32.3 g/dL (32-36); Mean Corpuscular Hgb 28.9 pg (27.0-32.0); Mean Corpuscular Volume 89.6 fL (80-94); Mean Platelet Vol. 10.4 fl (6.2-12.0); Platelet Count 192 K/mm3 (150-450); RBC Distribution Width CV 14.5 % (11.6-14.6); RBC Distribution Width SD 47.6 fl (35.1-43.9); Red Blood Count 4.81 M/mm3 (4.6-6.2)
[2022-12-16 17:00] LABS: Albumin, Serum 3.7 g/dL (3.2-5.0); BUN 57 mg/dL (7-18); BUN/Creat Ratio 23.1 RATIO (10-20); Calcium,Total 9.3 mg/dL (8.5-10.1); Chloride 109 mmol/L (98-107); Creatinine, Serum 2.47 mg/dL (0.70-1.30); EST Glomerular Filtration Rate 27 mL/min (>60); Est Glom Filt Rate - Afr Amer 33 mL/min (>60); Glucose 142 mg/dL (74-106); Phosphorus 4.3 mg/dL (2.5-4.9); Sodium Level 138 mmol/L (136-145)
[2022-12-16 17:04] LABS: Vitamin D,25 Hydroxy 58.6 ng/mL
[2022-12-17 08:29] LABS: PTHIN 187.1 pg/mL (18.4-80.1)
== END | disposition home or self-care (01) ==
LOC: LAB 15:20
PROVIDERS: PCP Family Medicine; Visit Provider Internal Medicine Nephrology
DX: N18.4 Chronic kidney disease, stage 4 (severe) (principal)
CPT/HCPCS: 36415; 80069; 82306; 83970; 85027

== ENCOUNTER → 2022-12-19 | Outpatient (CLI) | payer MEDICARE, SELFPAY ==
[2022-12-19 16:09] LABS: Protein, Urine (Random) 13.5 mg/dL (<11.9); Protein:Creat Ratio 235 mg/g CRE (0-200)
== END | disposition home or self-care (01) ==
LOC: LABSPEC 14:49
PROVIDERS: PCP Family Medicine; Referring Provider Internal Medicine Nephrology; Visit Provider Internal Medicine Nephrology
DX: N18.4 Chronic kidney disease, stage 4 (severe) (principal)
CPT/HCPCS: 82570; 84156

== ENCOUNTER 2024-08-18 12:38 | Outpatient (RCR) | payer MEDICARE, SELFPAY ==
[2024-08-18 13:16] VITALS: BP 166/78; PULSE 75; RESP 18; TEMP 35.6; BMI 46.2
--- NOTE | 2024-08-18 16:15 | HP.PCM_ITS ---
History of Present Illness Date of Service: 08/18/24 Chief Complaint: Right watkins wounds History of Wound: Mr. Vahid Diallo is a very pleasant 79-year-old male who presents today for evaluation and management of right watkins wounds. He first noticed these about 3 weeks ago. He reports that his shins seemed very dry and then it seemed like the skin cracked and developed these wounds. They did form significant scabs over top but just do not seem to be healing as quickly as they have in the past. He reports this has happened a few times in the past but usually heal within a week. He does have chronic discoloration of the bilateral shins consistent with hemosiderin staining. There is some increased pink to red discoloration on the right watkins, he feels this is chronic. He denies any excess drainage, foul odor, nausea, vomiting, fevers, chills. He is diabetic with last A1c 7.2 by his report. He denies any prior history of vascular interventions or known significant vascular disease. He does notice bilateral lower extremity edema but does not currently wear compression. He has been prescribed stockings in the past but is unable to apply them due to deformity of his left arm secondary to severe fracture which has lifted with very limited mobility. He does elevate his legs when resting in a recliner. He does not smoke. His medical history is otherwise significant for A-fib, pulmonary hypertension, CKD, COPD. [facility] Medical History (Reviewed 08/06/23 @ 13:00 by Krunal Balbuena [employer]PER[employer]OR [employer], SUPER[employer]OR [employer]) Acute respiratory failure with hypoxia Anemia Cardiology follow-up encounter Chronic back pain Chronic kidney disease, stage IV (severe) Chronic obstructive pulmonary disease COPD (chronic obstructive pulmonary disease) Debility Diabetes Essential hypertension Gout Heart failure with preserved ejection fraction Hemorrhagic shock Hyperlipidemia Hypertensive urgency Left ventricular hypertrophy Lumbar canal stenosis Morbid obesity Non-rheumatic mitral regurgitation Nonrheumatic mitral (valve) prolapse Permanent atrial fibrillation Severe pulmonary hypertension Shoulder fracture, left Type 2 diabetes mellitus Home Medications ?Medication ?Instructions ?Recorded ?Last Taken ?Type vitamin B complex 1 ea PO DAILY supplement 10/24/16 10/25/22 History albuterol 90 mcg/actuation aerosol 2 mcg inhalation Q4H PRN PRN 05/08/22 Unknown History inhaler Shortness Of Breath Or Wheezing cholecalciferol (vitamin D3) 50 50 mcg PO DAILY suppliment 05/08/22 Unknown History mcg (2,000 unit) capsule (Vitamin D3) ezetimibe 10 mg tablet (Zetia) 10 mg PO DAILY cholesterol 05/08/22 Unknown Hist ory multivitamin 1 cap PO DAILY suppliement 05/08/22 Unknown History pravastatin 40 mg tablet 40 mg PO QHS cholesterol 05/08/22 Unknown History metoprolol tartrate 50 mg tablet 50 mg PO BID #0 tabs 05/27/22 10/29/22 Rx sodium chloride 0.65 % nasal spray 2 spray NASAL TID PRN PRN NASAL 05/27/22 Unknown Rx aerosol (Deep Sea Nasal) DRYNESS #0 mL spironolactone 25 mg tablet 25 mg PO DAILY 06/03/22 Unknown History amlodipine 5 mg tablet 5 mg PO DAILY #0 tabs 06/10/22 10/29/22 Rx apixaban 5 mg tablet (Eliquis) 5 mg PO BID #0 tabs 06/10/22 10/25/22 Rx insulin lispro 100 unit/mL 15 unit (0.15 mL) subcut TIDAC #0 06/10/22 Unknown Rx subcutaneous pen (Humalog KwikPen mL (U-100) Insulin) acetaminophen 500 mg capsule 1,000 mg PO Q6H PRN Pain 09/04/22 Unknown History balsam selena-castor oil topical 1 applic topical Q12H PRN Itching 09/04/22 Unknown History ointment in packet dutasteride 0.5 mg capsule 0.5 mg PO DAILY 09/04/22 Unknown History oxycodone-acetaminophen 5 mg-325 1 tab PO BID PRN Pain 09/04/22 Unknown History mg tablet (Percocet) insulin glargine 100 unit/mL (3 15 unit subcut QAM 01/30/23 Unknown History mL) subcutaneous pen (Lantus Solostar U-100 Insulin) miconazole nitrate 2 % topical 1 applic topical BID 01/30/23 Unknown History cream sucralfate 1 gram tablet 1 g PO BID 01/30/23 Unknown History cetirizine 10 mg tablet 10 mg PO DAILY PRN allergies 08/06/23 Unknown History fluticasone propionate 50 1 spray intranasal BID PRN 08/06/23 Unknown History mcg/actuation nasal spray,suspension (Allergy Relief (fluticasone)) torsemide 20 mg tablet 20 mg PO DAILY #90 tabs 04/19/24 Unknown Rx Allergy/AdvReac Type Severity Reaction Status Date / Time grass pollen Allergy Hives Verified 08/06/23 11:42 Latex, Natural Rubber Allergy Unknown Verified 08/06/23 11:42 Penicillins Allergy Rash Verified 08/06/23 11:42 Family History Father Myocardial infarction Mother Valvular heart disease Surgical History History of bilateral knee replacement History of cholecystectomy History of elbow surgery Social History housing: [facility] Smoking Status: Never smoker alcohol intake: current alcohol intake frequency: holidays/special occasions only substance use type: does not use caffeine: Yes Type: coffee Number of servings: 12 Vital Signs Vital Signs Vital Signs: 08/18/24 13:16 Temperature 96.0 F L Temperature Source Temporal Pulse Rate 75 Respiratory Rate 18 Blood Pressure 166/78 H Blood Pressure Mean 107 Blood Pressure Source Monitor Blood Pressure Position Semi-Fowlers Blood Pressure Location Left Arm Oxygen Delivery Method Room Air Weight Weight: 295 lb Body Mass Index (BMI) 46.2 Physical Exam Const alert, oriented x3 and no apparent distress General Appearance: cooperative and comfortable HEENT normocephalic, hearing grossly normal bilaterally and external ears normal Nose: external nose normal Eyes EOMs intact bilaterally General Eye: normal appearance of both eyes Neck General: normal visual inspection and trachea midline Resp normal respiratory effort, normal air movement, no retractions and no use of accessory muscles Effort and Inspection: able to speak in complete sentences Cardio regular rate Rhythm: abnormal rhythm irregularly irregular Extremity Extremity Narrative: Right DP and PT with monophasic Doppler signal Mild bilateral lower extremity edema Bilateral watkins hemosiderin staining Skin Wounds: wounds noted Wound Narrative: He had several scattered scabs across his right watkins. When many of these were r emoved the skin was noted to be healed underneath. However, he did have 2 superficial wounds remaining on his chin. These are denoted as superior watkins ulceration and inferior watkins ulceration. Both are superficial, with pink wound base. There is pink discoloration surrounding the wounds which may be chronic but there is slightly increased warmth. No foul odor or excess drainage or focal edema/fluctuance/induration. Neuro oriented x3 and moves all extremities Speech: speech normal Psych mental status grossly normal, cooperative, affect normal, speech normal and activity/motor behavior normal Debridement Note Debridement Note Wound debrided: Right watkins superior Laterality: Right Type of Debridement: Excisional debridement Depth: Down to and including healthy tissue Percentage of wound debrided: 100 Instrument Used: 5mm curette Tissue Removed: Scab/devitalized tissue Severity: Limited To Skin Breakdown Amount of bleeding with debridement: Mild Bleeding Controlled with: Pressure Patient tolerated procedure: Patient tolerated procedure well Post-Debridement Measurements and Additional Note: Post-Debridement Measurements/Treatment - Nurse 1 - General Ulcer Assessment Start: 08/18/24 13:15 Freq: Status: Active Protocol: BROOKE Activity Type Activity Date Activity User E-sign Co-sign Detail Recorded Client Recorded Date Recorded By Document 08/18/24 13:16 MI [id number] 08/18/24 13:28 MI 08/18/24 13:16 - Today's Visit Information Type of service Initial Visit Arrival Mode Other Arrival Mode (Other) scooter Patient Identification Verified (Name & Yes ) Finger Stick Blood Sugar(mg/dl) (if 129 indicated): Blood Sugar Stated by Patient Height and Weight Height 5 ft 7 in Weight 295 lb Weight in Pounds 295.0 lbs Weight Measurement Method Estimated by Patient Body Mass Index (BMI) 46.2 BMI Classification Obese BSA - Luanne 2.39 Vital Signs Temperature (97.8 F-99.1 F) 96.0 F L Temperature Source Temporal Pulse Rate (60-100) 75 Pulse Location Monitor Respiratory Rate (12-18) 18 Respiratory rate source Observation Oxygen Delivery Method Room Air Blood Pressure (90/60-120/80) 166/78 H Blood Pressure Mean 107 Source Monitor Position Semi-Fowlers Blood Pressure Location Left Arm History Since Last Visit- (Skip if this is Patient's initial visit) Left Footwear Regular Shoe Right Footwear Regular Shoe Pain Scale: 0-10 Numeric Is Patient Pain Free? Yes Communication Assessment Preferred language Peruvian Able to Read Yes Able to Write Yes Communication Tools None Caregiver Communication Skills No Impairment Impairment Right Hearing Abillity Use of Hearing Aid Left Hearing Abillity Use of Hearing Aid Visual Assistive Devices None Teaching Assessment Preferences Verbal,Written, Demonstration Barriers to Learning None Readiness To Learn Excellent Willingness to Engage in Self Management High Activies Readiness to Engage in Self Management High Activities Anxiety Level Calm Cooperation Cooperative Perception Coherent Interest in Health Problem Asks Questions Education Importance Acknowledges Need Does Patient Smoke tobacco or other No substances Smoking Status Never smoker Is Patient Diabetic Yes Functional Assessment Recent Decline in Ability to Perform Denies Any Declines Culture/Buddhism/Svp Chief Marketing Officer Cultural/Buddhism Needs that may affect No Treatment Plan Would you allow our hospital shank scourer to No meet you for the purpose of spiritual/ emotional support? Svp Chief Marketing Officer to contact place of shinto No WC - Nurse 1 - General Ulcer Measurement Start: 08/18/24 13:15 Freq: Status: Active Protocol: Activity Type Activity Date Activity User E-sign Co-sign Detail Recorded Client Recorded Date Recorded By Document 08/18/24 13:16 MI [id number] 08/18/24 13:28 MI 08/18/24 13:16 Wound Center Nurse 1 #2 RT INFERIOR WATKINS CLUSTER -Current Size (cm) - Length 4 -Current Size (cm) - Width 0.7 -Current Size (cm) - Depth 0.1 -Total Square Cm 2.8 -Date of Last Picture (Recall this 08/18/24 field) -Exudate Amt None Present -Wound Margin Distinct, Outline Attached -Texture (Ashia-wound Skin Appearance) Assessed -Moisture (Ashia-wound Skin Appearance) Assessed -Color (Ashia-wound Skin Appearance) Assessed, Erythema, Hemosiderin Staining -Temperature (Ashia-wound Skin No Abnormality Appearance) (Pt Warm) -Tenderness on Palpation (Ashia-wound No Skin Appearance) -Ulcer Cleansing Rinsed/ Irrigated with Saline -Foul Odor after Cleansing No -Anesthetic Used 5% Lidocaine Gel #1 RT SUPERIOR WATKINS CLUSTER -Current Size (cm) - Length 8 -Current Size (cm) - Width 6 -Current Size (cm) - Depth 0.1 -Total Square Cm 48 -Date of Last Picture (Recall this 08/18/24 field) -Exudate Amt None Present -Wound Margin Distinct, Outline Attached -Texture (Ashia-wound Skin Appearance) Assessed -Moisture (Ashia-wound Skin Appearance) Assessed -Color (Ashia-wound Skin Appearance) Assessed, Erythema, Hemosiderin Staining -Temperature (Ashia-wound Skin No Abnormality Appearance) (Pt Warm) -Tenderness on Palpation (Ashia-wound No Skin Appearance) -Ulcer Cleansing Rinsed/ Irrigated with Saline -Foul Odor after Cleansing No -Anesthetic Used 5% Lidocaine Gel Right Calf (cm) 38.5 Right Ankle (cm) 23 Left Calf (cm) 38 Left Ankle (cm) 22 - Nurse 2 - General Ulcer CM Notes Start: 08/18/24 13:15 Freq: Status: Active Protocol: Activity Type Activity Date Activity User E-sign Co-sign Detail Recorded Client Recorded Date Recorded By Document 08/18/24 13:41 [id number] 08/18/24 14:01 08/18/24 13:41 Wound Center Nurse 2 #2 RT INFERIOR WATKINS CLUSTER -Time 13:41 -Correct Patient Yes -Correct Side, Site, Position Yes -Correct Procedure Yes -Procedure Performed Yes -Type of Procedure Debridement -Clinical Debridement Subcutaneous -Tissue Removed Subcutaneous -Post Debridement (cm) - Length 1.9 -Post Debridement (cm) - Width 0.8 -Post Debridement (cm) - Depth 0.1 -Total Square (Post) (cm) 1.52 -Area of Debridement (cm) - Length 1.9 -Area of Debridement (cm) - Width 0.8 -Total Square (Area) (cm) 1.52 -Tunneling No -Undermining/Tunneling No -Circular Undermining No -Wound/Ulcer Outcome Not Healed -Ulcer Cleansing Rinsed/ Irrigated with Saline -Foul Odor after Cleansing No -Bioengineered Tissue No -Bleeding Controlled with Pressure -Treatment Response Procedure Tolerated Well -Debridement - Subq, 1st 20sq cm No #1 RT SUPERIOR WATKINS CLUSTER -Time 13:41 -Correct Patient Yes -Correct Side, Site, Position Yes -Correct Procedure Yes -Procedure Performed Yes -Type of Procedure Debridement -Clinical Debridement Subcutaneous -Tissue Removed Subcutaneous -Post Debridement (cm) - Length 0.6 -Post Debridement (cm) - Width 1.9 -Post Debridement (cm) - Depth 0.1 -Total Square (Post) (cm) 1.14 -Area of Debridement (cm) - Length 0.6 -Area of Debridement (cm) - Width 1.9 -Total Square (Area) (cm) 1.14 -Tunneling No -Undermining/Tunneling No -Circular Undermining No -Wound/Ulcer Outcome Not Healed -Ulcer Cleansing Rinsed/ Irrigated with Saline -Foul Odor after Cleansing No -Bioengineered Tissue No -Bleeding Controlled with Pressure -Treatment Response Procedure Tolerated Well -Debridement - Subq, 1st 20sq cm Yes Pain Scale: 0-10 Numeric Is Patient Pain Free? Yes WC - Nurse 3 - General Ulcer D/C NN Start: 08/18/24 13:15 Freq: Status: Active Protocol: Activity Type Activity Date Activity User E-sign Co-sign Detail Recorded Client Recorded Date Recorded By Document 08/18/24 14:20 MI [id number] 08/18/24 14:21 MI 08/18/24 14:20 Wound Care Center Nurse 3 #2 RT INFERIOR WATKINS CLUSTER -Primary Dressing Applied Fibracol Plus 4x4 -Primary Dressing Covered/Secured with Dry Gauze -Fibracol Plus 4x4 1 Right -Multi-Layered Wrap Application Unna Boot - Right ($) Pain Scale: 0-10 Numeric Is Patient Pain Free? Yes Additional Wound Wound debrided: Right watkins inferior Laterality: Right Type of Debridement: Excisional debridement Anesthesia Used: 5% Lidocaine Gel Depth: Down to and including healthy tissue Percentage of wound debrided: 100 Instrument Used: 5mm curette Tissue Removed: Scab/devitalized tissue Severity: Limited To Skin Breakdown Amount of bleeding with debridement: Mild Bleeding Controlled with: Pressure Patient tolerated procedure: Patient tolerated procedure well Charges/Coding Visit Charges Office Visits / Consults: [id number] OV L3 New 30min Procedures Integumentary [id number]: [id number] Mandi subq tissue 20 sq cm/< (Limited to debridement of the skin only, not into the subcu layer) Assessment/Plan Assessment/Plan (1) Chronic ulcer of right leg, limited to breakdown of skin: CODE(S): L97.911 - Non-pressure chronic ulcer of unspecified part of right lower leg limited to breakdown of skin PLAN: This is a nonpressure chronic ulceration of the right watkins limited to breakdown of the skin PLAN: Plan With slightly increased warmth of the right watkins compared to the left, I did obtain wound cultures. Pending these results will initiate antibiotic therapy as indicated. We discussed signs and symptoms of developing or progressive infection which should lead him to either contact the wound center or proceed to the ER. Will apply Fibracol to the wound beds and then apply an Unna boot to the right lower extremity for both treatment of the wound and compression to better manage his edema. He is instructed to keep this clean and dry. This will remain in place for the week or he can return for a nurse visit fpc through to have it changed and replaced. Advised continued good glycemic control to help support wound healing. I also strongly advise elevation of his legs at all times of rest ideally at or above the level of the chest. I also encouraged use of his pedal certification and selection specialist. Clear he had several other wounds on the watkins which have since healed well. Given this, for now we will monitor progress of these remaining wounds. If progress stalls then we will plan to proceed with arterial and venous studies to further characterize likely underlying vascular disease. He will return 1 week or sooner as needed.
--- NOTE | 2024-08-19 12:04 | WC ---
PHOTO 08/18/24 RIGHT SUPERIOR BARROW
--- NOTE | 2024-08-19 12:04 | WC ---
PHOTO 08/18/24 RIGHT INFERIOR BARROW
== END 2024-08-22 23:59 | disposition home or self-care (01) ==
LOC: WC 12:38
PROVIDERS: PCP Family Medicine; Referring Provider Family Medicine; Visit Provider Physician Assistant
DX: E11.622 Type 2 diabetes mellitus with other skin ulcer (principal); L97.811 Non-pressure chronic ulcer of other part of right lower leg limited to breakdown of skin; N18.4 Chronic kidney disease, stage 4 (severe); I50.32 Chronic diastolic (congestive) heart failure; I13.0 Hypertensive heart and chronic kidney disease with heart failure and stage 1 through stage 4 chronic kidney disease, or unspecified chronic kidney disease; J44.9 Chronic obstructive pulmonary disease, unspecified; I48.91 Unspecified atrial fibrillation; E66.01 Morbid (severe) obesity due to excess calories; Z68.42 Body mass index [BMI] 45.0-49.9, adult; Z79.4 Long term (current) use of insulin; E11.22 Type 2 diabetes mellitus with diabetic chronic kidney disease; Z79.01 Long term (current) use of anticoagulants; E78.5 Hyperlipidemia, unspecified; Z79.899 Other long term (current) drug therapy
CPT/HCPCS: 11042; 29580; 87070; 87075; 87077; 87186; 87205; 99213; G0463

== ENCOUNTER → 2024-08-23 | Outpatient (CLI) | payer MEDICARE, SELFPAY ==
[2024-08-23 13:38] LABS: Microalbumin,Random Urine 11.8 mg/L (NO RANGE EST.)
[2024-08-23 13:41] LABS: ALB/GLOB Ratio 0.9 RATIO (0.9-2.4); AST(SGOT) 40 U/L (15-37); Alanine Aminotransfer ALT/SGPT 48 U/L (16-61); Albumin, Serum 3.5 g/dL (3.2-5.0); Alkaline Phosphatase 116 U/L (45-117); Anion Gap 7 (5-15); BUN 52 mg/dL (7-18); BUN/Creat Ratio 23.1 RATIO (10-20); Calcium,Total 9.5 mg/dL (8.5-10.1); Chloride 108 mmol/L (98-107); Cholesterol 114 mg/dL (200); Creatinine, Serum 2.25 mg/dL (0.70-1.30); EST Glomerular Filtration Rate 30 mL/min (>60); Est Glom Filt Rate - Afr Amer 36 mL/min (>60); Globulin 3.9 g/dL (2.2-4.2); Glucose 160 mg/dL (74-106); High Density Lipoprotein 48 mg/dL; PSA,Total- Diagnostic 3.79 ng/mL (0.0-4.0); Potassium 4.7 mmol/L (3.5-5.1); Protein, Total 7.4 g/dL (6.4-8.2); Sodium Level 140 mmol/L (136-145); Triglycerides 109 mg/dL; Very Low Density Lipoprotein 22 mg/dL (5-40)
== END | disposition home or self-care (01) ==
LOC: VSLAB 10:15
PROVIDERS: PCP Family Medicine; Visit Provider Family Medicine
DX: E11.69 Type 2 diabetes mellitus with other specified complication (principal); E78.2 Mixed hyperlipidemia; N40.0 Benign prostatic hyperplasia without lower urinary tract symptoms
CPT/HCPCS: 36415; 80053; 80061; 82043; 82570; 84153

== ENCOUNTER 2024-09-15 13:45 | Outpatient (RCR) | payer MEDICARE, SELFPAY ==
[2024-08-23 00:48] VITALS: BP 166/78; PULSE 75; RESP 18; TEMP 35.6; BMI 46.2
[2024-08-25 13:20] VITALS: BP 163/85; PULSE 79; RESP 20; TEMP 36.2; BMI 46.2
--- NOTE | 2024-08-25 15:20 | PN.PCM_ITS ---
History of Present Illness Date of Service: 08/25/24 Chief Complaint: Right pablo wounds History of Wound: Mr. Vahid Diallo is a very pleasant 79-year-old male who presents today for evaluation and management of right pablo wounds. He first noticed these about 3 weeks ago. He reports that his shins seemed very dry and then it seemed like the skin cracked and developed these wounds. They did form significant scabs over top but just do not seem to be healing as quickly as they have in the past. He reports this has happened a few times in the past but usually heal within a week. He does have chronic discoloration of the bilateral shins consistent with hemosiderin staining. There is some increased pink to red discoloration on the right pablo, he feels this is chronic. He denies any excess drainage, foul odor, nausea, vomiting, fevers, chills. He is diabetic with last A1c 7.2 by his report. He denies any prior history of vascular interventions or known significant vascular disease. He does notice bilateral lower extremity edema but does not currently wear compression. He has been prescribed stockings in the past but is unable to apply them due to deformity of his left arm secondary to severe fracture which has lifted with very limited mobility. He does elevate his legs when resting in a recliner. He does not smoke. His medical history is otherwise significant for A-fib, pulmonary hypertension, CKD, COPD. Subjective Subjective Vahid reports he tolerated the Unna boot well this past week. His leg wounds have healed. Unfortunately, he also had a blister on his R 4th toe which ruptured and has left behind a wound. His culture results did come back positive for staph aureus which was paez- susceptible. I prescribed him doxycycline 100mg BID x 10 days. He has been tolerating this well. Objective Data Objective Data Vital Signs: Vital Signs Temp Pulse Resp BP 97.2 F L 79 20 H 163/85 H 08/25/24 13:20 08/25/24 13:20 08/25/24 13:20 08/25/24 13:20 Weight: 295 lb Body Mass Index (BMI) 46.2 Charges/Coding Procedures Integumentary [id number]: [id number] Mandi subq tissue 20 sq cm/< (Limited to debridement of the skin only, not into the subcu layer) Physical Exam Const alert, oriented x3 and no apparent distress General Appearance: cooperative and comfortable HEENT normocephalic, hearing grossly normal bilaterally and external ears normal Nose: external nose normal Eyes General Eye: normal appearance of both eyes Neck General: normal visual inspection and trachea midline Resp normal respiratory effort, no retractions and no use of accessory muscles Effort and Inspection: able to speak in complete sentences Extremity Extremity Narrative: Right DP and PT with monophasic Doppler signal Mild bilateral lower extremity edema Bilateral pablo hemosiderin staining Skin Wounds: wounds noted Wound Narrative: Pablo wounds are epithelialized. R 4th toe with superficial ulceration on the dorsal aspect. The wound base is pink granulation tissue, moderate slough. There is very mild erythema, no significant warmth/foul odor/drainage. This aspect of the 4th toe appears to rub against the adjacent toes. There is some interdigital maceration between the 3rd and 4th toes and 4th and 5th toes. Neuro oriented x3 and moves all extremities Speech: speech normal Psych mental status grossly normal, cooperative, affect normal, speech normal and activity/motor behavior normal Debridement Note Debridement Note Wound debrided: R 4th toe Laterality: Right Type of Debridement: Excisional debridement Anesthesia Used: 5% Lidocaine Gel Depth: Down to and including healthy tissue Percentage of wound debrided: 100 Instrument Used: 3mm curette Tissue Removed: slough, devitalized tissue Severity: Limited To Skin Breakdown Amount of bleeding with debridement: Mild Bleeding Controlled with: Pressure Patient tolerated procedure: Patient tolerated procedure well Post-Debridement Measurements and Additional Note: Post-Debridement Measurements/Treatment VEDA - Nurse 1 - General Ulcer Assessment Start: 08/25/24 13:17 Freq: Status: Active Protocol: BROOKE Activity Type Activity Date Activity User E-sign Co-sign Detail Recorded Client Recorded Date Recorded By Document 08/25/24 13:20 DL [id number] 08/25/24 13:34 DL 08/25/24 13:20 - Today's Visit Information Type of service Follow-up Visit (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/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 ) Arrival Mode Ambulatory, Wheelchair Transfer Assistance None Patient Identification Verified (Name & Yes ) Patient Requires Transmission-Based No Precautions Height and Weight Body Mass Index (BMI) 46.2 BMI Classification Obese Vital Signs Temperature (97.8 F-99.1 F) 97.2 F L Temperature Source Temporal Pulse Rate (60-100) 79 Pulse Location Monitor Respiratory Rate (12-18) 20 H Respiratory rate source Observation Blood Pressure (90/60-120/80) 163/85 H Blood Pressure Mean (mm Hg) 111 Source Monitor History Since Last Visit- (Skip if this is Patient's initial visit) Any new allergies or adverse reactions No Had a fall/change in ADL's that may No increase risk of falls Signs or symptoms of abuse and/or No neglect since last visit Have you been in the hospital since your No last visit? Has dressing in place as prescribed Yes Has compression in place as prescribed Yes Has offloadiing in place as prescribed Yes Experienced any changes in pain level or No management Left Footwear Regular Shoe Right Footwear Regular Shoe Pain Scale: 0-10 Numeric Is Patient Pain Free? Yes WC - Nurse 1 - General Ulcer Measurement Start: 08/25/24 13:17 Freq: Status: Active Protocol: Activity Type Activity Date Activity User E-sign Co-sign Detail Recorded Client Recorded Date Recorded By Document 08/25/24 13:20 DL [id number] 08/25/24 13:34 DL 08/25/24 13:20 Wound Center Nurse 1 #3 R 4th toe -Current Size (cm) - Length 1.6 -Current Size (cm) - Width 0.7 -Current Size (cm) - Depth 0.1 -Total Square Cm 1.12 -Photo Taken Yes -Exudate Amt Medium -Exudate Type Serosanguineous -Wound Margin Distinct, Outline Attached -Granulation Amt Large (67-100%) -Granulation Quality Red -Necrosis Amt Small (1-33%) -Necrotic Tissue Type Adherent Slough -Structure Exposed N/A -Texture (Ashia-wound Skin Appearance) Localized Edema ,Scarring -Moisture (Ashia-wound Skin Appearance) No Abnormality -Color (Ashia-wound Skin Appearance) Erythema -Temperature (Ashia-wound Skin No Abnormality Appearance) (Pt Warm) -Tenderness on Palpation (Ashia-wound No Skin Appearance) -Ulcer Cleansing Soap and Water -Foul Odor after Cleansing No -Anesthetic Used 5% Lidocaine Gel #2 RT INFERIOR PABLO CLUSTER -Current Size (cm) - Length 0.1 -Current Size (cm) - Width 0.1 -Current Size (cm) - Depth 0.1 -Total Square Cm 0.01 -Exudate Amt None Present -Wound Margin Flat & Intact -Granulation Amt Large (67-100%) -Granulation Quality [place] -Necrosis Amt None Present (0 %) -Structure Exposed N/A -Texture (Ashia-wound Skin Appearance) Scarring -Moisture (Ashia-wound Skin Appearance) No Abnormality -Color (Ashia-wound Skin Appearance) Hemosiderin Staining -Temperature (Ashia-wound Skin No Abnormality Appearance) (Pt Warm) -Ulcer Cleansing Soap and Water -Foul Odor after Cleansing No #1 RT SUPERIOR PABLO CLUSTER -Current Size (cm) - Length 0.1 -Current Size (cm) - Width 0.1 -Current Size (cm) - Depth 0.1 -Total Square Cm 0.01 -Exudate Amt None Present -Wound Margin Flat & Intact -Granulation Amt Large (67-100%) -Granulation Quality [place] -Necrosis Amt None Present (0 %) -Structure Exposed N/A -Texture (Ashia-wound Skin Appearance) Scarring -Moisture (Ashia-wound Skin Appearance) Dry/Scaly -Color (Ashia-wound Skin Appearance) Hemosiderin Staining -Temperature (Ashia-wound Skin No Abnormality Appearance) (Pt Warm) -Tenderness on Palpation (Ashia-wound No Skin Appearance) -Ulcer Cleansing Soap and Water -Foul Odor after Cleansing No Right Calf (cm) 38.5 Right Ankle (cm) 22 WC - Nurse 2 - General Ulcer CM Notes Start: 08/25/24 13:17 Freq: Status: Active Protocol: Activity Type Activity Date Activity User E-sign Co-sign Detail Recorded Client Recorded Date Recorded By Document 08/25/24 13:46 [id number] 08/25/24 13:54 08/25/24 13:46 Wound Center Nurse 2 #3 R 4th toe -Time 13:47 -Correct Patient Yes -Correct Side, Site, Position Yes -Correct Procedure Yes -Procedure Performed Yes -Type of Procedure Debridement -Clinical Debridement Subcutaneous -Tissue Removed Subcutaneous -Post Debridement (cm) - Length 1.6 -Post Debridement (cm) - Width 0.6 -Post Debridement (cm) - Depth 0.1 -Total Square (Post) (cm) 0.96 -Area of Debridement (cm) - Length 1.6 -Area of Debridement (cm) - Width 0.6 -Total Square (Area) (cm) 0.96 -Tunneling No -Undermining/Tunneling No -Circular Undermining No -Wound/Ulcer Outcome Not Healed -Ulcer Cleansing Rinsed/ Irrigated with Saline -Foul Odor after Cleansing No -Bioengineered Tissue No -Bleeding Controlled with Pressure -Treatment Response Procedure Tolerated Well -Debridement - Subq, 1st 20sq cm Yes #2 RT INFERIOR PABLO CLUSTER -Time 13:53 -Correct Patient Yes -Correct Side, Site, Position Yes -Wound/Ulcer Outcome Healed- Epithelialized #1 RT SUPERIOR PABLO CLUSTER -Time 13:53 -Correct Patient Yes -Correct Side, Site, Position Yes -Wound/Ulcer Outcome Healed- Epithelialized Pain Scale: 0-10 Numeric Is Patient Pain Free? Yes WC - Nurse 3 - General Ulcer D/C NN Start: 08/25/24 13:17 Freq: Status: Active Protocol: Activity Type Activity Date Activity User E-sign Co-sign Detail Recorded Client Recorded Date Recorded By Document 08/25/24 14:03 KW [id number] 08/25/24 14:15 KW 08/25/24 14:03 Wound Care Center Nurse 3 #3 R 4th toe -Primary Dressing Applied Promogran Jeannette Matter -Primary Dressing Covered/Secured with Dry Gauze, Secured with Tape -Promogran Jeannette Matter 1 Pain Scale: 0-10 Numeric Is Patient Pain Free? Yes WC - Visit Discharge Discharge Condition Stable Ambulatory Status Wheelchair Transportation Private Auto Medication Reconcilliation completed & No provided to patient/care provider Clinical Summary of Care Provided Yes Assessment/Plan Assessment/Plan (1) Chronic ulcer of right leg, limited to breakdown of skin: CODE(S): L97.911 - Non-pressure chronic ulcer of unspecified part of right lower leg limited to breakdown of skin PLAN: This is a nonpressure chronic ulceration of the right pablo limited to breakdown of the skin PLAN: Plan His R pablo wounds are all healed today. He has a new R 4th toe wound. With some erythema at the new 4th toe wound and diabetic status, I will extend antibiotic therapy. Refill for doxycycline 100mg tab PO BID x 10 days has been provided. Will apply lightly-moistened Jeannette to the wound base followed by dry gauze dressing. Will weave gauze between the toes to wick moisture and reduce friction. He is not able to change this dressing and does not have anyone to help him with this on a daily basis. Will plan for two nurse visits next week. He is instructed to take precautions to keep these dressings clean and dry. Advised continued good glycemic control to help support wound healing. I also strongly advise elevation of his legs at all times of rest ideally at or above the level of the chest. I also encouraged use of his pedal onion farmer. If progress stalls then we will plan to proceed with arterial and venous studies to further characterize likely underlying vascular disease. He will return next Thursday and for nurse visits. I am out next week, I will see him back in 2 weeks.
[2024-08-29 14:43] VITALS: BP 145/97; PULSE 69; RESP 18; TEMP 36.1; BMI 46.2
[2024-09-01 11:38] VITALS: BP 131/69; PULSE 71; RESP 18; TEMP 35.6; BMI 46.2
[2024-09-15 13:35] VITALS: BP 165/82; PULSE 70; RESP 18; TEMP 36.2; BMI 46.2
--- NOTE | 2024-09-15 20:45 | PCM.WC.PN ---
History of Present Illness Date of Service: 09/15/24 Chief Complaint: Right watkins wounds History of Wound: Mr. Vahid Diallo is a very pleasant 79-year-old male who presents today for evaluation and management of right watkins wounds. He first noticed these about 3 weeks ago. He reports that his shins seemed very dry and then it seemed like the skin cracked and developed these wounds. They did form significant scabs over top but just do not seem to be healing as quickly as they have in the past. He reports this has happened a few times in the past but usually heal within a week. He does have chronic discoloration of the bilateral shins consistent with hemosiderin staining. There is some increased pink to red discoloration on the right watkins, he feels this is chronic. He denies any excess drainage, foul odor, nausea, vomiting, fevers, chills. He is diabetic with last A1c 7.2 by his report. He denies any prior history of vascular interventions or known significant vascular disease. He does notice bilateral lower extremity edema but does not currently wear compression. He has been prescribed stockings in the past but is unable to apply them due to deformity of his left arm secondary to severe fracture which has lifted with very limited mobility. He does elevate his legs when resting in a recliner. He does not smoke. His medical history is otherwise significant for A-fib, pulmonary hypertension, CKD, COPD. Subjective Subjective His toe wound from last visit has healed. Now with new skin tear to the R watkins. Has been wearing compression as advised, but reports his shrimp cleaner told him to avoid any compression on the foot as it may be pushing his toes together and contributing to skin breakdown there. Objective Data Objective Data Vital Signs: Vital Signs Temp Pulse Resp BP O2 Del Method 97.2 F L 70 18 165/82 H Room Air 09/15/24 13:35 09/15/24 13:35 09/15/24 13:35 09/15/24 13:35 09/15/24 13:35 Oxygen Delivery Method Room Air Weight: 295 lb Body Mass Index (BMI) 46.2 Charges/Coding Visit Charges Office Visits / Consults: 36845 OV L3 Est 20min Physical Exam Const alert, oriented x3 and no apparent distress General Appearance: cooperative and comfortable HEENT normocephalic, hearing grossly normal bilaterally and external ears normal Nose: external nose normal Eyes General Eye: normal appearance of both eyes Neck General: normal visual inspection and trachea midline Resp normal respiratory effort, no retractions and no use of accessory muscles Effort and Inspection: able to speak in complete sentences Extremity Extremity Narrative: Right DP and PT with monophasic Doppler signal Mild bilateral lower extremity edema Bilateral watkins hemosiderin staining Skin Wounds: wounds noted Wound Narrative: Watkins wounds are epithelialized. R 4th toe healed. New skin tear to the R watkins. No surrounding erythema, edema, foul odor. Minimal serous drainage. Neuro oriented x3 and moves all extremities Speech: speech normal Psych mental status grossly normal, cooperative, affect normal, speech normal and activity/motor behavior normal Debridement Note Debridement Note No debridement was completed: No debridement was completed today Post-Debridement Measurements and Additional Note: Post-Debridement Measurements/Treatment - Nurse 1 - General Ulcer Assessment Start: 08/25/24 13:17 Freq: Status: Active Protocol: [email or web address] Activity Type Activity Date Activity User E-sign Co-sign Detail Recorded Client Recorded Date Recorded By Document 08/25/24 13:20 DL [id number] 08/25/24 13:34 DL Document 08/29/24 14:43 KW [id number] 08/29/24 14:45 KW Document 09/01/24 11:38 KW [id number] 09/01/24 11:43 KW Document 09/15/24 13:35 KW [id number] 09/15/24 13:43 KW 08/25/24 08/29/24 09/01/24 13:20 14:43 11:38 - Today's Visit Information Type of service Follow-up Visit Follow-up Visit Nurse-only (Physician/RECOVERY OPERATOR HELPER (Physician/RECOVERY OPERATOR HELPER Visit ) ) Arrival Mode Ambulatory, Other Other Wheelchair Arrival Mode (Other) scooter scooter Transfer Assistance None Patient Identification Verified (Name & Yes Yes Yes ) Patient Requires Transmission-Based No Precautions Finger Stick Blood Sugar(mg/dl) (if indicated): Blood Sugar Height and Weight Body Mass Index (BMI) 46.2 46.2 46.2 BMI Classification Obese Obese Obese Vital Signs Temperature (97.8 F-99.1 F) 97.2 F L 96.9 F L 96.0 F L Temperature Source Temporal Temporal Temporal Pulse Rate (60-100) 79 69 71 Pulse Location Monitor Monitor Monitor Respiratory Rate (12-18) 20 H 18 18 Respiratory rate source Observation Observation Observation Oxygen Delivery Method Room Air Room Air Blood Pressure (90/60-120/80) 163/85 H 145/97 H 131/69 H Blood Pressure Mean (mm Hg) 111 113 89 Source Monitor Monitor Monitor Position Sitting Sitting Blood Pressure Location Left Arm Left Arm History Since Last Visit- (Skip if this is Patient's initial visit) Have you changed medications since your No No last visit? Any new allergies or adverse reactions No No No Had a fall/change in ADL's that may No No No increase risk of falls Signs or symptoms of abuse and/or No No No neglect since last visit Have you been in the hospital since your No No No last visit? Has dressing in place as prescribed Yes Yes Yes Has compression in place as prescribed Yes Yes Yes Has offloadiing in place as prescribed Yes N/A N/A Experienced any changes in pain level or No No No management Left Footwear Regular Shoe Regular Shoe Regular Shoe Right Footwear Regular Shoe Regular Shoe Regular Shoe Pain Scale: 0-10 Numeric Is Patient Pain Free? Yes Yes Yes 09/15/24 13:35 WC - Today's Visit Information Type of service Follow-up Visit (Physician/RECOVERY OPERATOR HELPER ) Arrival Mode Other Arrival Mode (Other) scooter Transfer Assistance Patient Identification Verified (Name & Yes ) Patient Requires Transmission-Based Precautions Finger Stick Blood Sugar(mg/dl) (if 133 indicated): Blood Sugar Stated by Patient Height and Weight Body Mass Index (BMI) 46.2 BMI Classification Obese Vital Signs Temperature (97.8 F-99.1 F) 97.2 F L Temperature Source Temporal Pulse Rate (60-100) 70 Pulse Location Monitor Respiratory Rate (12-18) 18 Respiratory rate source Observation Oxygen Delivery Method Room Air Blood Pressure (90/60-120/80) 165/82 H Blood Pressure Mean (mm Hg) 109 Source Monitor Position Sitting Blood Pressure Location Right Arm History Since Last Visit- (Skip if this is Patient's initial visit) Have you changed medications since your No last visit? Any new allergies or adverse reactions No Had a fall/change in ADL's that may No increase risk of falls Signs or symptoms of abuse and/or No neglect since last visit Have you been in the hospital since your No last visit? Has dressing in place as prescribed Yes Has compression in place as prescribed N/A Has offloadiing in place as prescribed N/A Experienced any changes in pain level or No management Left Footwear Regular Shoe Right Footwear Regular Shoe Pain Scale: 0-10 Numeric Is Patient Pain Free? Yes WC - Nurse 1 - General Ulcer Measurement Start: 08/25/24 13:17 Freq: Status: Active Protocol: Activity Type Activity Date Activity User E-sign Co-sign Detail Recorded Client Recorded Date Recorded By Document 08/25/24 13:20 DL [id number] 08/25/24 13:34 DL Document 09/15/24 13:35 KW [id number] 09/15/24 13:43 KW 08/25/24 09/15/24 13:20 13:35 Wound Center Nurse 1 #3 R 4th toe -Current Size (cm) - Length 1.6 -Current Size (cm) - Width 0.7 -Current Size (cm) - Depth 0.1 -Total Square Cm 1.12 -Photo Taken Yes -Exudate Amt Medium -Exudate Type Serosanguineous -Wound Margin Distinct, Outline Attached -Granulation Amt Large (67-100%) -Granulation Quality Red -Necrosis Amt Small (1-33%) -Necrotic Tissue Type Adherent Slough -Structure Exposed N/A -Texture (Ashia-wound Skin Appearance) Localized Edema ,Scarring -Moisture (Ashia-wound Skin Appearance) No Abnormality -Color (Ashia-wound Skin Appearance) Erythema -Temperature (Ashia-wound Skin No Abnormality Appearance) (Pt Warm) -Tenderness on Palpation (Ashia-wound No Skin Appearance) -Ulcer Cleansing Soap and Water -Foul Odor after Cleansing No -Anesthetic Used 5% Lidocaine Gel #2 RT INFERIOR WATKINS CLUSTER -Current Size (cm) - Length 0.1 -Current Size (cm) - Width 0.1 -Current Size (cm) - Depth 0.1 -Total Square Cm 0.01 -Exudate Amt None Present -Wound Margin Flat & Intact -Granulation Amt Large (67-100%) -Granulation Quality [place] -Necrosis Amt None Present (0 %) -Structure Exposed N/A -Texture (Ashia-wound Skin Appearance) Scarring -Moisture (Ashia-wound Skin Appearance) No Abnormality -Color (Ashia-wound Skin Appearance) Hemosiderin Staining -Temperature (Ashia-wound Skin No Abnormality Appearance) (Pt Warm) -Ulcer Cleansing Soap and Water -Foul Odor after Cleansing No #1 RT SUPERIOR WATKINS CLUSTER -Current Size (cm) - Length 0.1 -Current Size (cm) - Width 0.1 -Current Size (cm) - Depth 0.1 -Total Square Cm 0.01 -Exudate Amt None Present -Wound Margin Flat & Intact -Granulation Amt Large (67-100%) -Granulation Quality [place] -Necrosis Amt None Present (0 %) -Structure Exposed N/A -Texture (Ashia-wound Skin Appearance) Scarring -Moisture (Ashia-wound Skin Appearance) Dry/Scaly -Color (Ashia-wound Skin Appearance) Hemosiderin Staining -Temperature (Ashia-wound Skin No Abnormality Appearance) (Pt Warm) -Tenderness on Palpation (Ashia-wound No Skin Appearance) -Ulcer Cleansing Soap and Water -Foul Odor after Cleansing No #4 RT LAT WATKINS -Current Size (cm) - Length 1.5 -Current Size (cm) - Width 2.2 -Current Size (cm) - Depth 0.1 -Total Square Cm 3.30 -Exudate Amt None Present -Wound Margin Distinct, Outline Attached -Granulation Amt Large (67-100%) -Granulation Quality Hyper- granulation,Red -Texture (Ashia-wound Skin Appearance) Assessed -Moisture (Ashia-wound Skin Appearance) Assessed -Color (Ashia-wound Skin Appearance) Assessed -Temperature (Ashia-wound Skin No Abnormality Appearance) (Pt Warm) -Tenderness on Palpation (Ashia-wound No Skin Appearance) -Ulcer Cleansing Rinsed/ Irrigated with Saline -Foul Odor after Cleansing No -Anesthetic Used 5% Lidocaine Gel Right Calf (cm) 38.5 37 Right Ankle (cm) 22 23 Left Calf (cm) 37 Left Ankle (cm) 22.5 WC - Nurse 2 - General Ulcer CM Notes Start: 08/25/24 13:17 Freq: Status: Active Protocol: Activity Type Activity Date Activity User E-sign Co-sign Detail Recorded Client Recorded Date Recorded By Document 08/25/24 13:46 [id number] 08/25/24 13:54 Document 09/15/24 13:47 [id number] 09/15/24 13:53 08/25/24 09/15/24 13:46 13:47 Wound Center Nurse 2 #3 R 4th toe -Time 13:47 -Correct Patient Yes -Correct Side, Site, Position Yes -Correct Procedure Yes -Procedure Performed Yes -Type of Procedure Debridement -Clinical Debridement Subcutaneous -Tissue Removed Subcutaneous -Post Debridement (cm) - Length 1.6 -Post Debridement (cm) - Width 0.6 -Post Debridement (cm) - Depth 0.1 -Total Square (Post) (cm) 0.96 -Area of Debridement (cm) - Length 1.6 -Area of Debridement (cm) - Width 0.6 -Total Square (Area) (cm) 0.96 -Tunneling No -Undermining/Tunneling No -Circular Undermining No -Wound/Ulcer Outcome Not Healed -Ulcer Cleansing Rinsed/ Irrigated with Saline -Foul Odor after Cleansing No -Bioengineered Tissue No -Bleeding Controlled with Pressure -Treatment Response Procedure Tolerated Well -Debridement - Subq, 1st 20sq cm Yes #2 RT INFERIOR WATKINS CLUSTER -Time 13:53 -Correct Patient Yes -Correct Side, Site, Position Yes -Wound/Ulcer Outcome Healed- Epithelialized #1 RT SUPERIOR WATKINS CLUSTER -Time 13:53 -Correct Patient Yes -Correct Side, Site, Position Yes -Wound/Ulcer Outcome Healed- Epithelialized #4 RT LAT WATKINS -Time 13:52 -Correct Patient Yes -Correct Side, Site, Position Yes -Wound/Ulcer Outcome Not Healed -Ulcer Cleansing Not Cleansed -Foul Odor after Cleansing No -Bioengineered Tissue No -Wound Comment(s) MEASURES 2.0 2.5 0.1 Pain Scale: 0-10 Numeric Is Patient Pain Free? Yes Yes WC - Nurse 3 - General Ulcer D/C NN Start: 08/25/24 13:17 Freq: Status: Active Protocol: Activity Type Activity Date Activity User E-sign Co-sign Detail Recorded Client Recorded Date Recorded By Document 08/25/24 14:03 KW [id number] 08/25/24 14:15 KW Document 08/29/24 14:43 KW [id number] 08/29/24 14:45 KW Document 09/01/24 11:38 KW [id number] 09/01/24 11:43 KW Document 09/15/24 14:01 [id number] 09/15/24 14:02 08/25/24 08/29/24 09/01/24 14:03 14:43 11:38 Wound Care Center Nurse 3 #3 R 4th toe -Ulcer Cleansing Rinsed/ Soap and Water Irrigated with Saline -Primary Dressing Applied Promogran Promogran Promogran Jeannette Matter Jeannette Matter -Primary Dressing Covered/Secured with Dry Gauze, Dry Gauze, Dry Gauze & Secured with Secured with Roll Gauze, Tape Tape Secured with Tape -Promogran 1 -Promogran Jeannette Matter 1 1 #4 RT LAT WATKINS -Ulcer Cleansing -Foul Odor after Cleansing -Primary Dressing Applied -Mepilex Border Left -Lotion applied to leg before compression wrap -Tubular Bandage Single Layer Single Layer -Size of Tubigrip Used Size E Size E -Size E ($) 1 1 -Size F ($) Right -Lotion applied to leg before compression wrap -Tubular Bandage Single Layer Single Layer -Size of Tubigrip Used Size E Size E -Size E ($) 1 1 -Size F ($) Vital Signs Temperature (97.8 F-99.1 F) 96.9 F L 96.0 F L Temperature Source Temporal Temporal Pulse Rate (60-100) 69 71 Pulse Location Monitor Monitor Respiratory Rate (12-18) 18 18 Respiratory rate source Observation Observation Oxygen Delivery Method Room Air Room Air Blood Pressure (90/60-120/80) 145/97 H 131/69 H Blood Pressure Mean (mm Hg) 113 89 Source Monitor Monitor Position Sitting Sitting Blood Pressure Location Left Arm Left Arm Pain Scale: 0-10 Numeric Is Patient Pain Free? Yes Yes Yes WC - Visit Discharge Discharge Condition Stable Stable Stable Ambulatory Status Wheelchair Transportation Private Auto Private Auto Private Auto Medication Reconcilliation completed & No No No provided to patient/care provider Clinical Summary of Care Provided Yes Yes Yes 09/15/24 14:01 Wound Care Center Nurse 3 #3 R 4th toe -Ulcer Cleansing -Primary Dressing Applied -Primary Dressing Covered/Secured with -Promogran -Promogran Jeannette Matter #4 RT LAT WATKINS -Ulcer Cleansing Not Cleansed -Foul Odor after Cleansing No -Primary Dressing Applied Mepilex Border -Mepilex Border 1 Left -Lotion applied to leg before No compression wrap -Tubular Bandage Single Layer -Size of Tubigrip Used Size F -Size E ($) -Size F ($) 1 Right -Lotion applied to leg before No compression wrap -Tubular Bandage Single Layer -Size of Tubigrip Used Size F -Size E ($) -Size F ($) 1 Vital Signs Temperature (97.8 F-99.1 F) Temperature Source Pulse Rate (60-100) Pulse Location Respiratory Rate (12-18) Respiratory rate source Oxygen Delivery Method Blood Pressure (90/60-120/80) Blood Pressure Mean (mm Hg) Source Position Blood Pressure Location Pain Scale: 0-10 Numeric Is Patient Pain Free? Yes WC - Visit Discharge Discharge Condition Stable Ambulatory Status Wheelchair Transportation Private Auto Medication Reconcilliation completed & provided to patient/care provider Clinical Summary of Care Provided Assessment/Plan Assessment/Plan (1) Skin tear of right lower leg without complication: CODE(S): S81.811A - Laceration without foreign body, right lower leg, initial encounter PLAN: Plan His R 4th toe wound is healed. New R watkins skin tears. Will apply lightly-moistened Jeannette to the wound base followed by dry gauze dressing. Change at least every other day, more often as needed to keep clean and dry. Advised continued good glycemic control to help support wound healing. I also strongly advise elevation of his legs at all times of rest ideally at or above the level of the chest. I also encouraged use of his pedal sales specialist. Will submit for Circaids. For now, continue tubigrips for compression. Return to the clinic in 1-2 weeks to reassess, sooner as needed.
--- NOTE | 2024-09-16 10:05 | WC ---
PHOTO 09/15/24 RIGHT LATERAL BARROW
--- NOTE | 2024-09-26 11:21 | WC ---
PHOTO 09/15/24 RIGHT LATERAL BARROW
== END 2024-09-22 23:59 | disposition home or self-care (01) ==
LOC: WC 13:45
PROVIDERS: PCP Family Medicine; Referring Provider Family Medicine; Visit Provider Physician Assistant
DX: E11.622 Type 2 diabetes mellitus with other skin ulcer (principal); L97.811 Non-pressure chronic ulcer of other part of right lower leg limited to breakdown of skin; J44.9 Chronic obstructive pulmonary disease, unspecified; E11.22 Type 2 diabetes mellitus with diabetic chronic kidney disease; R60.0 Localized edema; N18.9 Chronic kidney disease, unspecified; S81.811A Laceration without foreign body, right lower leg, initial encounter; X58.XXXA Exposure to other specified factors, initial encounter
CPT/HCPCS: 11042; 99211; 99213; G0463

== ENCOUNTER → 2025-02-08 | Outpatient (CLI) | payer MEDICARE, SELFPAY ==
[2025-02-08 17:11] LABS: Hematocrit 46.3 % (40-54); Hemoglobin 15.1 g/dL (13.0-16.5); Mean Corp Hgb Conc 32.6 g/dL (32-36); Mean Corpuscular Hgb 31.1 pg (27.0-32.0); Mean Corpuscular Volume 95.3 fL (80-94); Mean Platelet Vol. 10.4 fl (6.2-12.0); Platelet Count 143 K/mm3 (150-450); RBC Distribution Width CV 13.7 % (11.6-14.6); RBC Distribution Width SD 47.8 fl (35.1-43.9); Red Blood Count 4.86 M/mm3 (4.6-6.2); White Blood Count 6.9 K/mm3 (4.4-11.0)
[2025-02-08 18:06] LABS: PTHIN 53 pg/mL (11-61)
[2025-02-08 18:13] LABS: Albumin, Serum 3.9 g/dL (3.4-4.8); Anion Gap 15 (5-15); BUN 44 mg/dL (4-19); BUN/Creat Ratio 17.2 RATIO (10-20); Calcium,Total 9.8 mg/dL (7.6-11.0); Chloride 103 mmol/L (98-108); Creatinine, Serum 2.57 mg/dL (0.70-1.20); EST Glomerular Filtration Rate 24 (>60); Glucose 260 mg/dL (70-99); Phosphorus 3.4 mg/dL (2.7-4.5); Potassium 4.7 mmol/L (3.3-5.1); Sodium Level 136 mmol/L (133-145)
[2025-02-08 18:18] LABS: Vitamin D,25 Hydroxy 52.5 ng/mL (30-100)
== END | disposition home or self-care (01) ==
LOC: VSLAB 14:39
PROVIDERS: PCP Family Medicine; Visit Provider Internal Medicine Nephrology
DX: N18.4 Chronic kidney disease, stage 4 (severe) (principal)
CPT/HCPCS: 36415; 80069; 82306; 83970; 85027

== ENCOUNTER → 2025-02-09 | Outpatient (CLI) | payer MEDICARE, SELFPAY ==
[2025-02-09 20:44] LABS: Protein, Urine (Random) 12.9 mg/dL (0.0-12.0); Protein:Creat Ratio 138 mg/g CRE (0-200)
== END | disposition home or self-care (01) ==
LOC: LABSPEC 14:23
PROVIDERS: PCP Family Medicine; Visit Provider Internal Medicine Nephrology
DX: N18.4 Chronic kidney disease, stage 4 (severe) (principal)
CPT/HCPCS: 82570; 84156

== ENCOUNTER → 2025-03-21 | Outpatient (CLI) | payer MEDICARE, SELFPAY ==
[2025-03-21 12:50] LABS: Absolute Lymphocyte Count 1.18 X10^3/uL (0.83-4.51); Absolute Neutrophil Count 4.5 X10^3/uL (2.0-7.7); Basophil# 0.08 X10^3/uL; Basophil% 1.2 % (0-1); Eosinophil# 0.28 X10^3/uL; Eosinophils% 4.1 % (0-5); Hematocrit 45.3 % (40-54); Hemoglobin 14.9 g/dL (13.0-16.5); Lymphocyte # 1.18 X10^3/ul (0.83-4.51); Lymphocyte % 17.2 % (19-41); Mean Corp Hgb Conc 32.9 g/dL (32-36); Mean Corpuscular Hgb 31.5 pg (27.0-32.0); Mean Corpuscular Volume 95.8 fL (80-94); Mean Platelet Vol. 10.3 fl (6.2-12.0); Monocyte# 0.83 X10^3/uL; Monocyte% 12.1 % (0-10); NRBC Flagged by Analyzer 0 % (0-5); Neutrophil # 4.45 X10^3/uL (2.7-7.7); Neutrophil % 64.7 % (47-70); Platelet Count 148 K/mm3 (150-450); RBC Distribution Width CV 14.6 % (11.6-14.6); RBC Distribution Width SD 50.2 fl (35.1-43.9); Red Blood Count 4.73 M/mm3 (4.6-6.2); White Blood Count 6.9 K/mm3 (4.4-11.0)
[2025-03-21 13:21] LABS: ALB/GLOB Ratio 1.1 RATIO (0.9-2.4); AST(SGOT) 31 U/L (<=37); Alanine Aminotransfer ALT/SGPT 36 U/L (<=46); Albumin, Serum 3.9 g/dL (3.4-4.8); Alkaline Phosphatase 126 U/L (40-129); Anion Gap 14 (5-15); BUN 56 mg/dL (4-19); BUN/Creat Ratio 21.4 RATIO (10-20); Calcium,Total 9.6 mg/dL (7.6-11.0); Carbon Dioxide 20.4 mmol/L (21.0-32.0); Chloride 104 mmol/L (98-108); Creatinine, Serum 2.63 mg/dL (0.70-1.20); EST Glomerular Filtration Rate 24 (>60); Globulin 3.6 g/dL (2.2-4.2); Glucose 167 mg/dL (70-99); Hemoglobin A1c 7.6 % (<=5.6); Potassium 5.1 mmol/L (3.3-5.1); Protein, Total 7.5 g/dL (5.9-8.4); Sodium Level 138 mmol/L (133-145); Total Bilirubin 0.82 mg/dL (0.00-1.30)
[2025-03-23 08:08] LABS: Prealbumin 20 mg/dL (9-32)
== END | disposition home or self-care (01) ==
LOC: VSLAB 09:42
PROVIDERS: PCP Family Medicine; Visit Provider Surgery Plastic and Reconstructive Surgery
DX: E11.622 Type 2 diabetes mellitus with other skin ulcer (principal); L97.919 Non-pressure chronic ulcer of unspecified part of right lower leg with unspecified severity; L97.929 Non-pressure chronic ulcer of unspecified part of left lower leg with unspecified severity
CPT/HCPCS: 36415; 80053; 83036; 84134; 85025

== ENCOUNTER 2025-03-22 10:00 | Outpatient (RCR) | payer MEDICARE, SELFPAY ==
[2024-09-23 00:47] VITALS: BP 166/78; PULSE 75; RESP 18; TEMP 35.6; BMI 46.2
[2025-03-20 14:06] VITALS: BP 146/73; PULSE 70; RESP 16; TEMP 35.7; BMI 47.4
--- NOTE | 2025-03-21 06:12 | PCM.WC.HP ---
History of Present Illness Date of Service: 03/21/25 Chief Complaint: Right watkins wounds History of Wound: Mr. Vahid Diallo is a very pleasant 79-year-old male who presents today for evaluation and management of right watkins wounds. He first noticed these about 3 weeks ago. He reports that his shins seemed very dry and then it seemed like the skin cracked and developed these wounds. They did form significant scabs over top but just do not seem to be healing as quickly as they have in the past. He reports this has happened a few times in the past but usually heal within a week. He does have chronic discoloration of the bilateral shins consistent with hemosiderin staining. There is some increased pink to red discoloration on the right watkins, he feels this is chronic. He denies any excess drainage, foul odor, nausea, vomiting, fevers, chills. He is diabetic with last A1c 7.2 by his report. He denies any prior history of vascular interventions or known significant vascular disease. He does notice bilateral lower extremity edema but does not currently wear compression. He has been prescribed stockings and compression wear by his primary care physician, but he has not used them yet. He does elevate his legs when resting in a recliner, but is often sleeping in a recliner at night. He does not smoke. His medical history is otherwise significant for A-fib (takes Eliquis), pulmonary hypertension, CKD (previously on dialysis but no longer on dialysis), COPD. [facility] Medical History Permanent atrial fibrillation Severe pulmonary hypertension Non-rheumatic mitral regurgitation Left ventricular hypertrophy Cardiology follow-up encounter Shoulder fracture, left Nonrheumatic mitral (valve) prolapse Essential hypertension Anemia Chronic kidney disease, stage IV (severe) Hemorrhagic shock Gout Chronic obstructive pulmonary disease Heart failure with preserved ejection fraction Debility Acute respiratory failure with hypoxia Diabetes COPD (chronic obstructive pulmonary disease) Hypertensive urgency Morbid obesity Lumbar canal stenosis Chronic back pain Hyperlipidemia Type 2 diabetes mellitus Home Medications Medication Instructions Recorded Last Taken Type vitamin B complex 1 ea PO DAILY supplement 10/24/16 10/25/22 History albuterol 90 mcg/actuation aerosol 2 mcg inhalation Q4H PRN PRN 05/08/22 Unknown History inhaler Shortness Of Breath Or Wheezing cholecalciferol (vitamin D3) 50 50 mcg PO DAILY suppliment 05/08/22 Unknown History mcg (2,000 unit) capsule (Vitamin D3) ezetimibe 10 mg tablet (Zetia) 10 mg PO DAILY cholesterol 05/08/22 Unknown History multivitamin 1 cap PO DAILY suppliement 05/08/22 Unknown History pravastatin 40 mg tablet 40 mg PO QHS cholesterol 05/08/22 Unknown History metoprolol tartrate 50 mg tablet 50 mg PO BID #0 tabs 05/27/22 10/29/22 Rx sodium chloride 0.65 % nasal spray 2 spray NASAL TID PRN PRN NASAL 05/27/22 Unknown Rx aerosol (Deep Sea Nasal) DRYNESS #0 mL spironolactone 25 mg tablet 25 mg PO DAILY 06/03/22 Unknown History amlodipine 5 mg tablet 5 mg PO DAILY #0 tabs 06/10/22 10/29/22 Rx apixaban 5 mg tablet (Eliquis) 5 mg PO BID #0 tabs 06/10/22 10/25/22 Rx insulin lispro 100 unit/mL 15 unit (0.15 mL) subcut TIDAC #0 06/10/22 Unknown Rx subcutaneous pen (Humalog KwikPen mL (U-100) Insulin) acetaminophen 500 mg capsule 1,000 mg PO Q6H PRN Pain 09/04/22 Unknown History balsam selena-castor oil topical 1 applic topical Q12H PRN Itching 09/04/22 Unknown History ointment in packet dutasteride 0.5 mg capsule 0.5 mg PO DAILY 09/04/22 Unknown History oxycodone-acetaminophen 5 mg-325 1 tab PO BID PRN Pain 09/04/22 Unknown History mg tablet (Percocet) insulin glargine 100 unit/mL (3 15 unit subcut QAM 01/30/23 Unknown History mL) subcutaneous pen (Lantus Solostar U-100 Insulin) miconazole nitrate 2 % topical 1 applic topical BID 01/30/23 Unknown History cream sucralfate 1 gram tablet 1 g PO BID 01/30/23 Unknown History cetirizine 10 mg tablet 10 mg PO DAILY PRN allergies 08/06/23 Unknown History fluticasone propionate 50 1 spray intranasal BID PRN 08/06/23 Unknown History mcg/actuation nasal spray,suspension (Allergy Relief (fluticasone)) torsemide 20 mg tablet 20 mg PO DAILY #90 tabs 04/19/24 Unknown Rx Allergy/AdvReac Type Severity Reaction Status Date / Time grass pollen Allergy Hives Verified 03/20/25 14:06 Latex, Natural Rubber Allergy Unknown Verified 03/20/25 14:06 Penicillins Allergy Rash Verified 03/20/25 14:06 Family History Father Myocardial infarction Mother Valvular heart disease Surgical History History of bilateral knee replacement History of elbow surgery History of cholecystectomy Social History housing: intermediate Smoking Status: Never smoker alcohol intake: current alcohol intake frequency: holidays/special occasions only substance use type: does not use caffeine: Yes Type: coffee Number of servings: 12 Vital Signs Vital Signs Vital Signs: 03/20/25 14:06 Temperature 96.2 F L Temperature Source Temporal Pulse Rate 70 Respiratory Rate 16 Blood Pressure 146/73 H Blood Pressure Mean 97 Blood Pressure Source Monitor Blood Pressure Position Sitting Blood Pressure Location Right Arm Oxygen Delivery Method Room Air Weight Weight: 303 lb Body Mass Index (BMI) 47.4 Physical Exam Narrative Inspection: Superficial ulcer consistent with venous stasis ulcer on the anterior watkins, as well as the lower left leg. There are small digital ulcers on the dorsum of the toes. Vascular: 2+ dorsalis pedis pulses bilaterally Sensation: Intact to light touch throughout the foot bilaterally Debridement Note Debridement Note No debridement was completed: No debridement was completed today Post-Debridement Measurements and Additional Note: Post-Debridement Measurements/Treatment - Nurse 1 - General Ulcer Assessment Start: 03/20/25 14:06 Freq: Status: Active Protocol: VEDA.MATY Activity Type Activity Date Activity User E-sign Co-sign Detail Recorded Client Recorded Date Recorded By Document 03/20/25 14:06 SKYLER [id number] 03/20/25 14:27 KW 03/20/25 14:06 - Today's Visit Information Type of service Initial Visit Arrival Mode Other Arrival Mode (Other) scooter Accompanied by son Patient Identification Verified (Name & Yes ) Finger Stick Blood Sugar(mg/dl) (if 136 indicated): Blood Sugar Stated by Patient Height and Weight Height 5 ft 7 in Weight 303 lb Weight in Pounds 303.0 lbs Weight Measurement Method Estimated by Patient Body Mass Index (BMI) 47.4 BMI Classification Obese Vital Signs Temperature (97.8 F-99.1 F) 96.2 F L Temperature Source Temporal Pulse Rate (60-100) 70 Pulse Location Monitor Respiratory Rate (12-18) 16 Respiratory rate source Observation Oxygen Delivery Method Room Air Blood Pressure (90/60-120/80) 146/73 H Blood Pressure Mean 97 Source Monitor Position Sitting Blood Pressure Location Right Arm History Since Last Visit- (Skip if this is Patient's initial visit) Left Footwear Regular Shoe Right Footwear Regular Shoe Pain Scale: 0-10 Numeric Is Patient Pain Free? Yes Lower Extremity Assessment/ Foot Assessment/ Toe Nail Assessment Right -Posterior Tibial Doppler Multiphasic -Dorsalis Pedis Doppler Monophasic -Hair Growth on Legs No -Hair Growth on Toes No -Thick No -Discolored No -Deformed No -Improper Length & Hygeine No Communication Assessment Preferred language [place] Attorney Law Clerk Required No Able to Read Yes Able to Write Yes Communication Tools None Caregiver Communication Skills No Impairment Impairment Right Hearing Abillity Hard of Hearing ,Use of Hearing Aid Left Hearing Abillity Use of Hearing Aid Visual Assistive Devices Glasses Teaching Assessment Preferences Verbal,Written, Demonstration Barriers to Learning None Readiness To Learn Excellent Willingness to Engage in Self Management High Activies Readiness to Engage in Self Management High Activities Anxiety Level Calm Cooperation Cooperative Perception Coherent Interest in Health Problem Asks Questions Education Importance Acknowledges Need Does Patient Smoke tobacco or other No substances Smoking Status Never smoker Is Patient Diabetic Yes Functional Assessment Recent Decline in Ability to Perform Denies Any Declines Culture/Mormon/Filter Plant Supervisor Cultural/Mormon Needs that may affect No Treatment Plan Would you allow our hospital bulk tank driver to No meet you for the purpose of spiritual/ emotional support? Filter Plant Supervisor to contact place of anglican No WC - Nurse 1 - General Ulcer Measurement Start: 03/20/25 14:06 Freq: Status: Active Protocol: Activity Type Activity Date Activity User E-sign Co-sign Detail Recorded Client Recorded Date Recorded By Document 03/20/25 14:06 SKYLER [id number] 03/20/25 14:27 KW 03/20/25 14:06 Wound Center Nurse 1 #8 RT INF WATKINS -Current Size (cm) - Length 3.9 -Current Size (cm) - Width 7.2 -Current Size (cm) - Depth 0.1 -Total Square Cm 28.08 -Date of Last Picture (Recall this 03/20/25 field) -Exudate Amt Medium -Exudate Type Serosanguineous -Wound Margin Distinct, Outline Attached -Granulation Amt Large (67-100%) -Granulation Quality Red -Texture (Ashia-wound Skin Appearance) Assessed -Moisture (Ashia-wound Skin Appearance) Assessed -Color (Ashia-wound Skin Appearance) Assessed, Erythema, Hemosiderin Staining -Temperature (Ashia-wound Skin No Abnormality Appearance) (Pt Warm) -Ulcer Cleansing Soap and Water -Foul Odor after Cleansing No -Anesthetic Used 4% Lidocaine Solution #7 RT SUP WATKINS -Current Size (cm) - Length 1.1 -Current Size (cm) - Width 1.6 -Current Size (cm) - Depth 0.1 -Total Square Cm 1.76 -Date of Last Picture (Recall this 03/20/25 field) -Exudate Amt Small -Exudate Type Serosanguineous -Wound Margin Distinct, Outline Attached -Granulation Amt Small (1-33%) -Granulation Quality Red -Necrosis Amt Large (67-100%) -Necrotic Tissue Type Eschar -Texture (Ashia-wound Skin Appearance) Assessed -Moisture (Ashia-wound Skin Appearance) Assessed -Color (Ashia-wound Skin Appearance) Assessed, Erythema, Hemosiderin Staining -Temperature (Ashia-wound Skin No Abnormality Appearance) (Pt Warm) -Tenderness on Palpation (Ashia-wound No Skin Appearance) -Ulcer Cleansing Soap and Water -Foul Odor after Cleansing No -Anesthetic Used 4% Lidocaine Solution #6 RT MED ANKLE -Current Size (cm) - Length 0.7 -Current Size (cm) - Width 0.5 -Current Size (cm) - Depth 0.1 -Total Square Cm 0.35 -Date of Last Picture (Recall this 03/20/25 field) -Exudate Amt Small -Exudate Type Serosanguineous -Wound Margin Distinct, Outline Attached -Granulation Amt Large (67-100%) -Granulation Quality Red -Necrosis Amt Small (1-33%) -Necrotic Tissue Type Adherent Slough -Texture (Ashia-wound Skin Appearance) Assessed -Moisture (Ashia-wound Skin Appearance) Assessed -Color (Ashia-wound Skin Appearance) Assessed, Erythema -Temperature (Ashia-wound Skin No Abnormality Appearance) (Pt Warm) -Tenderness on Palpation (Ashia-wound No Skin Appearance) -Ulcer Cleansing Soap and Water -Foul Odor after Cleansing No -Anesthetic Used 5% Lidocaine Gel #5 LT MED ANKLE -Current Size (cm) - Length 0.4 -Current Size (cm) - Width 0.5 -Current Size (cm) - Depth 0.1 -Total Square Cm 0.20 -Date of Last Picture (Recall this 03/20/25 field) -Exudate Amt Small -Exudate Type Serosanguineous -Wound Margin Distinct, Outline Attached -Granulation Amt Small (1-33%) -Granulation Quality Red -Necrosis Amt Medium (34-66%) -Necrotic Tissue Type Eschar -Texture (Ashia-wound Skin Appearance) Assessed -Moisture (Ashia-wound Skin Appearance) Assessed -Color (Ashia-wound Skin Appearance) Assessed, Erythema -Temperature (Ashia-wound Skin No Abnormality Appearance) (Pt Warm) -Tenderness on Palpation (Ashia-wound No Skin Appearance) -Ulcer Cleansing Soap and Water -Foul Odor after Cleansing No -Anesthetic Used 5% Lidocaine Gel Right Calf (cm) 42.6 Right Ankle (cm) 23 Left Calf (cm) 37.8 Left Ankle (cm) 23.5 WC - Nurse 2 - General Ulcer CM Notes Start: 03/20/25 14:06 Freq: Status: Active Protocol: Activity Type Activity Date Activity User E-sign Co-sign Detail Recorded Client Recorded Date Recorded By Document 03/20/25 14:47 KINA [id number] 03/20/25 14:49 KINA 03/20/25 14:47 Wound Center Nurse 2 #8 RT INF WATKINS -Correct Patient No -Correct Side, Site, Position No -Correct Procedure No -Procedure Performed No -Wound/Ulcer Outcome Not Healed #7 RT SUP WATKINS -Correct Patient Yes -Correct Side, Site, Position No -Correct Procedure No -Procedure Performed No -Wound/Ulcer Outcome Not Healed #6 RT MED ANKLE -Correct Patient Yes -Correct Side, Site, Position No -Correct Procedure No -Procedure Performed No -Wound/Ulcer Outcome Not Healed #5 LT MED ANKLE -Correct Patient Yes -Correct Side, Site, Position No -Correct Procedure No -Procedure Performed No -Wound/Ulcer Outcome Not Healed Pain Scale: 0-10 Numeric Is Patient Pain Free? Yes WC - Nurse 3 - General Ulcer D/C NN Start: 03/20/25 14:06 Freq: Status: Active Protocol: Activity Type Activity Date Activity User E-sign Co-sign Detail Recorded Client Recorded Date Recorded By Document 03/20/25 14:59 KW [id number] 03/20/25 15:01 KW Edit Result 03/20/25 14:59 KW (1) [id number] 03/20/25 15:02 KW (1) #5 LT MED ANKLE - Primary Dressing Applied => Aquacel AG 4x4 - Aquacel AG 4x4 => 1 03/20/25 14:59 Wound Care Center Nurse 3 #8 RT INF WATKINS -Primary Dressing Applied Aquacel AG 4x4, NonAdherent Contact Layer -Aquacel AG 4x4 1 #7 RT SUP WATKINS -Other Dressing ADAPTIC WITH AQUACEL AG -Primary Dressing Covered/Secured with Dry Gauze & Roll Gauze, Secured with Tape #6 RT MED ANKLE -Other Dressing ADAPTIC WITH AQUACEL AG -Primary Dressing Covered/Secured with Dry Gauze #5 LT MED ANKLE -Primary Dressing Applied Aquacel AG 4x4 -Other Dressing ADAPTIC AND AQUACEL AG -Primary Dressing Covered/Secured with Dry Gauze, Secured with Tape -Aquacel AG 4x4 1 BLE -Other PT OWN CIRCAIDS Pain Scale: 0-10 Numeric Is Patient Pain Free? Yes WC - Visit Discharge Discharge Condition Stable Transportation Private Auto Medication Reconcilliation completed & No provided to patient/care provider Clinical Summary of Care Provided Yes Notes: USES SCOOTER Charges/Coding Visit Charges Office Visits / Consults: 98280 OV L3 New 30min Assessment/Plan Assessment/Plan (1) Skin tear of right lower leg without complication: CODE(S): S81.811A - Laceration without foreign body, right lower leg, initial encounter PLAN: Plan Plan for Aquacel Ag to the exudative venous stasis ulcers to be changed daily Advised continued good glycemic control to help support wound healing. He needs to elevate the legs and I recommended sleeping in the bed and not the recliner as I think he places the legs in a dependent position from time to time while in the recliner. Agree with use of Circaids/compression stockings, but only after we obtain updated ankle-brachial indices (given black ulcers on the dorsum of the toes), as well as the venous Doppler studies. Follow-up in 2 weeks or sooner as needed Follow-up ABIs and venous duplex studies
--- NOTE | 2025-03-21 08:55 | WC ---
PHOTO 03/20/25 LEFT [facility] ANKLE
--- NOTE | 2025-03-21 08:59 | WC ---
PHOTO 03/20/25 RIGHT [facility] ANKLE
--- NOTE | 2025-03-21 09:05 | WC ---
PHOTO 03/20/25 RIGHT INF BARROW
--- NOTE | 2025-03-21 09:09 | WC ---
PHOTO 03/20/25 RIGHT SUP BARROW
--- NOTE | 2025-03-22 10:02 | ART_ITS ---
Reason For Study Reason For Study: Leg ulcer Procedure A bilateral lower extremity continuous wave Doppler with analog waveform analysis,segmental pressures,and ankle brachial indexes without exercise. Left Segmental Pressures Left brachial= 150mmHg. Left posterior tibial artery = >254mmHg. Left dorsalis pedis artery = >254mmHg. Left digit = 113 mmHg. The left dorsalis pedis waveforms are triphasic. The left posterior tibial artery waveforms are triphasic. Right Segmental Pressures Right brachial= 155mmHg. Right posterior tibial artery = >254mmHg. Right dorsalis pedis artery = >254mmHg. Right digit = 77 mmHg. The right dorsalis pedis waveforms are biphasic. The right posterior tibial artery waveforms are biphasic. Indices The right ankle brachial index by the dorsalis pedis is NC. The right ankle brachial index by the posterior tibial artery is NC. The right digital-brachial index is 0.50. The left ankle brachial index by the dorsalis pedis is NC. The left ankle brachial index by the posterior tibial artery is NC. The left digital-brachial index is 0.73. VL/Lower Ext Art Exam w/o Exercis Interpretation Summary Biphasic Doppler waveforms are noted at ankle level on the right. Triphasic Dop pler waveforms are noted at ankle level on the left. Pulse-volume recordings appear satisfactory at all levels bilatera lly. Resting ankle-brachial indices could not be determined on either side due to the non-compressibility of the vasculat ure at ankle level bilaterally. The right digital-brachial index is mildly diminished. The left digital-brachial index is normal. There is evidence of arterial calcification at ankle level bilaterally. There i s evidence of mild arterial occlusive disease in the right lower extremity. Arterial flow appears normal in the left lower extremity. Ordering Physician: John Souza Referring Physician: Silvia Avalos Performed By: Nita Dover RVT
--- NOTE | 2025-03-22 10:02 | VDLE_ITS ---
Reason For Study Reason For Study: Bilateral leg edema RIGHT LEFT CFV is compressible, spontaneous, phasic, competent CFV is compressible, spontaneous, phasic, competent, and demonstrates normal augmentation. and demonstrates normal augmentation. FV is compressible, spontaneous, phasic, competent FV is compressible, spontaneous, phasic, competent and demonstrates normal augmentation. and demonstrates normal augmentation. POP V is compressible, spontaneous, phasic, competent POP V is compressible, spontaneous, phasic, competent and demonstrates normal augmentation. and demonstrates normal augmentation. T/P Trunk is compressible. T/P Trunk is compressible. PTV is compressible. PTV is compressible. RT PerV is compressible. LT PerV is compressible. SFJ is competent and measures 0.59 cm. SFJ is competent and measures 0.71 cm. GSV proximal thigh measures 0.45 x 0.46 cm. GSV proximal thigh measures 0.45 x 0.46 cm. GSV at knee measures 0.52 x 0.53 cm. GSV at knee measures 0.45 x 0.43 cm. GSV is competent throughout. GSV is competent above knee and below knee. SSV mid calf is competent and measures 0.28 x 0.27 GSV is INCOMPETENT at the knee for greater than 0.5 cm. seconds. Procedure SSV at junction is competent and measures 0.33 x 0.34 This is a venous duplex using B-mode, color flow and cm. spectral Doppler. Exam performed in department. Patient was scanned in reverse Trendelenburg position during reflux assessment. A preliminary report was called and/or faxed to . VL/Venous Duplex US - Ramez Extrem Interpretation Summary Deep veins of the lower extremities are bilaterally patent and compressible seg mentally. There is no evidence of deep vein thrombosis on either side. Valvular competence appears intact within the p roximal deep venous systems bilaterally. The great saphenous veins appear bilaterally patent and compressible segmentall y. Sapheno-femoral junctions are bilaterally competent . The right great saphenous vein appears segmentally comp etent. The left great saphenous vein appears competent above the knee. The left great saphenous vein appears compete nt below the knee. The left great saphenous vein is incompetent at knee level. Small saphenous veins are patent a nd competent bilaterally. Ordering Physician: John Souza Referring Physician: Silvia Avalos Performed By: Nita Dover RVT
== END 2025-06-06 10:33 | disposition home or self-care (01) ==
LOC: WC 10:00
PROVIDERS: PCP Family Medicine; Referring Provider Family Medicine; Visit Provider Surgery Plastic and Reconstructive Surgery
DX: E11.622 Type 2 diabetes mellitus with other skin ulcer (principal); L97.829 Non-pressure chronic ulcer of other part of left lower leg with unspecified severity; E11.59 Type 2 diabetes mellitus with other circulatory complications; I87.2 Venous insufficiency (chronic) (peripheral); S81.811A Laceration without foreign body, right lower leg, initial encounter
CPT/HCPCS: 93923; 93970; 99214; G0463

== ENCOUNTER → 2025-04-04 | Outpatient (CLI) | payer MEDICARE, SELFPAY ==
[2025-04-04 13:26] LABS: ALB/GLOB Ratio 1.2 RATIO (0.9-2.4); AST(SGOT) 21 U/L (<=37); Albumin, Serum 3.8 g/dL (3.4-4.8); BUN 64 mg/dL (4-19); BUN/Creat Ratio 23.5 RATIO (10-20); Calcium,Total 9.6 mg/dL (7.6-11.0); Creatinine, Serum 2.72 mg/dL (0.70-1.20); EST Glomerular Filtration Rate 23 (>60); Globulin 3.3 g/dL (2.2-4.2); Glucose 318 mg/dL (70-99); Protein, Total 7.1 g/dL (5.9-8.4)
[2025-04-04 13:27] LABS: Alanine Aminotransfer ALT/SGPT 19 U/L (<=46); Alkaline Phosphatase 95 U/L (40-129); Anion Gap 14 (5-15); Carbon Dioxide 22.4 mmol/L (21.0-32.0); Chloride 100 mmol/L (98-108); Potassium 4.8 mmol/L (3.3-5.1); Sodium Level 136 mmol/L (133-145); Total Bilirubin 1.03 mg/dL (0.00-1.30)
== END | disposition home or self-care (01) ==
LOC: VSLAB 12:08
PROVIDERS: PCP Family Medicine; Visit Provider Family Medicine
DX: N18.9 Chronic kidney disease, unspecified (principal)
CPT/HCPCS: 36415; 80053

== ENCOUNTER 2025-04-12 10:15 | Outpatient (RCR) | payer MEDICARE, SELFPAY ==
--- NOTE | 2025-03-28 15:21 | WC ---
Called pt and let him know he needed to return a call to his insurance rep concerning his supply order co-pay. Pt said he spoke with them and his co-pay was more than if he purchased at a store. I let him know that if that is the case then it's fine to buy them that way , however he needed to make sure he returned the call and he could call us back with any questions and/or touch base with Leatha at his next office visit.
[2025-04-03 09:24] VITALS: BP 129/76; PULSE 86; RESP 14; TEMP 36.4
--- NOTE | 2025-04-04 09:05 | PCM.WC.PN ---
History of Present Illness Date of Service: 04/03/25 Chief Complaint: Right pablo wounds History of Wound: Mr. Vahid Diallo is a very pleasant 79-year-old male who presents today for evaluation and management of right pablo wounds. He first noticed these about 3 weeks ago. He reports that his shins seemed very dry and then it seemed like the skin cracked and developed these wounds. They did form significant scabs over top but just do not seem to be healing as quickly as they have in the past. He reports this has happened a few times in the past but usually heal within a week. He does have chronic discoloration of the bilateral shins consistent with hemosiderin staining. There is some increased pink to red discoloration on the right pablo, he feels this is chronic. He denies any excess drainage, foul odor, nausea, vomiting, fevers, chills. He is diabetic with last A1c 7.2 by his report. He denies any prior history of vascular interventions or known significant vascular disease. He does notice bilateral lower extremity edema but does not currently wear compression. He has been prescribed stockings and compression wear by his primary care physician, but he has not used them yet. He does elevate his legs when resting in a recliner, but is often sleeping in a recliner at night. He does not smoke. His medical history is otherwise significant for A-fib (takes Eliquis), pulmonary hypertension, CKD (previously on dialysis but no longer on dialysis), COPD. Subjective Subjective Current encounter, 03 Apr 2025: Patient reports that his shins are healed, but that he has persistent dorsal toe wounds. No fevers or chills Objective Data Objective Data Vital Signs: Vital Signs Temp Pulse Resp BP 97.6 F L 86 14 129/76 H 04/03/25 09:24 04/03/25 09:24 04/03/25 09:24 04/03/25 09:24 Charges/Coding Multi Select Codes Visit Charges Office Visit/Consults: 64669 OV L4 Est 30min Physical Exam Narrative Inspection: Pablo skin has reepithelialized. Venous stasis ulcers are healed. There are small digital ulcers on the dorsum of the toes. Vascular: 2+ dorsalis pedis pulses bilaterally Sensation: Intact to light touch throughout the foot bilaterally Debridement Note Debridement Note No debridement was completed: No debridement was completed today Post-Debridement Measurements and Additional Note: Post-Debridement Measurements/Treatment - Nurse 1 - General Ulcer Assessment Start: 04/03/25 09:24 Freq: Status: Active Protocol: BROOKE Activity Type Activity Date Activity User E-sign Co-sign Detail Recorded Client Recorded Date Recorded By Document 04/03/25 09:24 KINA [id number] 04/03/25 09:33 KINA 04/03/25 09:24 - Today's Visit Information Type of service Follow-up Visit (Physician/CYANIDE POT TENDER ) Arrival Mode Wheelchair Transfer Assistance None Patient Identification Verified (Name & Yes ) Patient Requires Transmission-Based No Precautions Vital Signs Temperature (97.8 F-99.1 F) 97.6 F L Temperature Source Temporal Pulse Rate (60-100) 86 Pulse Location Monitor Respiratory Rate (12-18) 14 Respiratory rate source Observation Blood Pressure (90/60-120/80) 129/76 H Blood Pressure Mean (mm Hg) 93 Source Monitor Position Sitting Blood Pressure Location Right Arm History Since Last Visit- (Skip if this is Patient's initial visit) Have you changed medications since your No last visit? Any new allergies or adverse reactions No Had a fall/change in ADL's that may No increase risk of falls Signs or symptoms of abuse and/or No neglect since last visit Have you been in the hospital since your No last visit? Has dressing in place as prescribed Yes Has compression in place as prescribed N/A Has offloadiing in place as prescribed N/A Experienced any changes in pain level or No management Pain Scale: 0-10 Numeric Is Patient Pain Free? Yes - Nurse 1 - General Ulcer Measurement Start: 04/03/25 09:24 Freq: Status: Active Protocol: Activity Type Activity Date Activity User E-sign Co-sign Detail Recorded Client Recorded Date Recorded By Document 04/03/25 09:24 KINA [id number] 04/03/25 09:33 JF Edit Result 04/03/25 09:24 KINA (1) [id number] 04/03/25 09:34 KINA (1) Right Calf (cm) => 38.5 Right Ankle (cm) => 21.3 Left Calf (cm) => 36.4 Left Ankle (cm) => 21.7 04/03/25 09:24 Wound Center Nurse 1 #8 RT INF PABLO -Current Size (cm) - Length 0.1 -Current Size (cm) - Width 0.1 -Current Size (cm) - Depth 0.1 -Total Square Cm 0.01 -Exudate Amt Small -Exudate Type Serosanguineous -Granulation Amt None Present (0 %) -Necrosis Amt None Present (0 %) -Texture (Ashia-wound Skin Appearance) Assessed -Moisture (Ashia-wound Skin Appearance) Assessed -Color (Ashia-wound Skin Appearance) Assessed -Temperature (Ashia-wound Skin No Abnormality Appearance) (Pt Warm) -Tenderness on Palpation (Ashia-wound No Skin Appearance) -Ulcer Cleansing Rinsed/ Irrigated with Saline -Foul Odor after Cleansing No -Anesthetic Used 5% Lidocaine Gel Right Calf (cm) 38.5 Right Ankle (cm) 21.3 Left Calf (cm) 36.4 Left Ankle (cm) 21.7 WC - Nurse 2 - General Ulcer CM Notes Start: 04/03/25 09:24 Freq: Status: Active Protocol: Activity Type Activity Date Activity User E-sign Co-sign Detail Recorded Client Recorded Date Recorded By Document 04/03/25 09:39 BMF [id number] 04/03/25 09:47 [facility] 04/03/25 09:39 Wound Center Nurse 2 #8 RT INF PABLO -Time 09:40 -Procedure Performed No -Post Debridement (cm) - Length 0 -Post Debridement (cm) - Width 0 -Post Debridement (cm) - Depth 0 -Total Square (Post) (cm) 0 -Area of Debridement (cm) - Length 0 -Area of Debridement (cm) - Width 0 -Total Square (Area) (cm) 0 -Tunneling No -Undermining/Tunneling No -Circular Undermining No -Wound/Ulcer Outcome Healed- Epithelialized -Bleeding Controlled with NA Pain Scale: 0-10 Numeric Is Patient Pain Free? Yes WC - Nurse 3 - General Ulcer D/C NN Start: 04/03/25 09:24 Freq: Status: Active Protocol: Activity Type Activity Date Activity User E-sign Co-sign Detail Recorded Client Recorded Date Recorded By Document 04/03/25 09:59 ML [id number] 04/03/25 10:00 ML 04/03/25 09:59 Wound Care Center Nurse 3 #8 RT INF PABLO -Primary Dressing Applied Aquacel AG 4x4, NonAdherent Contact Layer -Primary Dressing Covered/Secured with Dry Gauze & Roll Gauze, Secured with Tape -Aquacel AG 4x4 2 Pain Scale: 0-10 Numeric Is Patient Pain Free? Yes Assessment/Plan Assessment/Plan (1) Skin tear of right lower leg without complication: CODE(S): S81.811A - Laceration without foreign body, right lower leg, initial encounter (2) Open wnd toe-complicated: CODE(S): S91.109A - Unspecified open wound of unspecified toe(s) without damage to nail, initial encounter PLAN: Betadine paint twice daily to the eschar over the toe wounds. Discussed return precautions and signs and symptoms of infection. Plan to refer to Dr. Parr (podiatry) for evaluation of the digital ulcers. I am also referring to vascular surgery as the ABIs demonstrated questionable perfusion at the level of the ankle to the toes, and these are consistent with vascular insufficiency ulcers. PLAN: Plan Venous stasis ulcers of healed. I would not do compression at this time until the lower extremity is evaluated by vascular surgery and then make recommendations regarding compression/tolerance of compression (currently has potentially ischemic digital ulcers). Plan to follow-up with plastics as needed Patient happy with the plan
--- NOTE | 2025-04-05 09:38 | WC ---
PHOTO 04/03/25 RIGHT BARROW
[2025-04-12 10:12] VITALS: BP 147/79; PULSE 75; RESP 16; TEMP 35.9
--- NOTE | 2025-04-12 11:43 | PN.PCM_ITS ---
History of Present Illness Date of Service: 04/12/25 Chief Complaint: Right watkins wounds History of Wound: Mr. Vahid Diallo is a very pleasant 79-year-old male who presents today for evaluation and management of right watkins wounds. He first noticed these about 3 weeks ago. He reports that his shins seemed very dry and then it seemed like the skin cracked and developed these wounds. They did form significant scabs over top but just do not seem to be healing as quickly as they have in the past. He reports this has happened a few times in the past but usually heal within a week. He does have chronic discoloration of the bilateral shins consistent with hemosiderin staining. There is some increased pink to red discoloration on the right watkins, he feels this is chronic. He denies any excess drainage, foul odor, nausea, vomiting, fevers, chills. He is diabetic with last A1c 7.2 by his report. He denies any prior history of vascular interventions or known significant vascular disease. He does notice bilateral lower extremity edema but does not currently wear compression. He has been prescribed stockings and compression wear by his primary care physician, but he has not used them yet. He does elevate his legs when resting in a recliner, but is often sleeping in a recliner at night. He does not smoke. His medical history is otherwise significant for A-fib (takes Eliquis), pulmonary hypertension, CKD (previously on dialysis but no longer on dialysis), COPD. 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 No sign of infection Subjective Subjective Mr Diallo is a 79-year-old diabetic male being referred from plastic surgery to my clinic with a chief complaint of multiple dry eschars to the lesser digits of the bilateral feet. Patient is diabetic but well-controlled. Patient states that he noticed these wounds approximately 3 to 4 weeks ago. He was referred to the vascular lab for noninvasive vascular studies which she has completed. Patient ambulates in regular shoes but majority of the time spends in a motorized scooter. Patient's last A1c was 7.2%. He has never had vascular intervention in the past. He does use diabetic socks but not diabetic shoes. He denies any restless legs when he sleeps, or having to lay his bilateral feet/legs in dependent position at night. He does sleep in a recliner however. Denies trauma. Denies constitutional symptoms. No other pedal complaints at this time. Objective Data Objective Data Vital Signs: Vital Signs Temp Pulse Resp BP O2 Del Method 96.6 F L 75 16 147/79 H Room Air 04/12/25 10:12 04/12/25 10:12 04/12/25 10:12 04/12/25 10:12 04/12/25 10:12 Oxygen Delivery Method Room Air Physical Exam Narrative Vascular: DP and PT pulses are faintly palpable to bilateral lower extremity. Skin temperature gradient is warm to cool from proximal ankles to distal digit bilateral. CFT is brisk. Patient shows evidence of blanchable erythema due to venous insufficiency. Skin is tight. Neurological: Light touch is intact. Patient does respond to epicritic sensation. Dermatological: Multiple dry eschars to lesser digits to the bilateral extremity. No full-thickness wounds appreciated. Evidence of blanchable erythema due to venous insufficiency to the right greater than left. Webspaces 1 through 4 are clean dry intact. Musculoskeletal: No pain on palpation to the dry eschars to the bilateral lower extremity. No pain with calf pressure. Debridement Note Debridement Note Post-Debridement Measurements and Additional Note: Post-Debridement Measurements/Treatment - Nurse 1 - General Ulcer Assessment Start: 04/03/25 09:24 Freq: Status: Active Protocol: VEDA.MATY Activity Type Activity Date Activity User E-sign Co-sign Detail Recorded Client Recorded Date Recorded By Document 04/03/25 09:24 [id number] 04/03/25 09:33 Document 04/12/25 10:12 CP [id number] 04/12/25 10:15 04/03/25 04/12/25 09:24 10:12 - Today's Visit Information Type of service Follow-up Visit Follow-up Visit (Physician/CONSUMER AFFAIRS MANAGER (Physician/CONSUMER AFFAIRS MANAGER ) ) Arrival Mode Wheelchair Wheelchair Transfer Assistance None None Patient Identification Verified (Name & Yes Yes ) Patient Requires Transmission-Based No No Precautions Vital Signs Temperature (97.8 F-99.1 F) 97.6 F L 96.6 F L Temperature Source Temporal Temporal Pulse Rate (60-100) 86 75 Pulse Location Monitor Monitor Respiratory Rate (12-18) 14 16 Respiratory rate source Observation Observation Oxygen Delivery Method Room Air Blood Pressure (90/60-120/80) 129/76 H 147/79 H Blood Pressure Mean (mm Hg) 93 101 Source Monitor Monitor Position Sitting Sitting Blood Pressure Location Right Arm Left Arm History Since Last Visit- (Skip if this is Patient's initial visit) Have you changed medications since your No No last visit? Any new allergies or adverse reactions No No Had a fall/change in ADL's that may No No increase risk of falls Signs or symptoms of abuse and/or No No neglect since last visit Have you been in the hospital since your No No last visit? Has dressing in place as prescribed Yes Yes Has compression in place as prescribed N/A N/A Has offloadiing in place as prescribed N/A N/A Experienced any changes in pain level or No management Pain Scale: 0-10 Numeric Is Patient Pain Free? Yes Yes WC - Nurse 1 - General Ulcer Measurement Start: 04/03/25 09:24 Freq: Status: Active Protocol: Activity Type Activity Date Activity User E-sign Co-sign Detail Recorded Client Recorded Date Recorded By Document 04/03/25 09:24 JF [id number] 04/03/25 09:33 JF Edit Result 04/03/25 09:24 JF (1) [id number] 04/03/25 09:34 JF Document 04/12/25 10:12 CP [id number] 04/12/25 10:15 CP (1) Right Calf (cm) => 38.5 Right Ankle (cm) => 21.3 Left Calf (cm) => 36.4 Left Ankle (cm) => 21.7 04/03/25 04/12/25 09:24 10:12 Wound Center Nurse 1 #8 RT INF WATKINS -Current Size (cm) - Length 0.1 0 -Current Size (cm) - Width 0.1 0 -Current Size (cm) - Depth 0.1 0 -Total Square Cm 0.01 0 -Exudate Amt Small -Exudate Type Serosanguineous -Granulation Amt None Present (0 %) -Necrosis Amt None Present (0 %) -Texture (Ashia-wound Skin Appearance) Assessed -Moisture (Ashia-wound Skin Appearance) Assessed -Color (Ashia-wound Skin Appearance) Assessed -Temperature (Ashia-wound Skin No Abnormality Appearance) (Pt Warm) -Tenderness on Palpation (Ashia-wound No Skin Appearance) -Ulcer Cleansing Rinsed/ Irrigated with Saline -Foul Odor after Cleansing No -Anesthetic Used 5% Lidocaine Gel Right Calf (cm) 38.5 Right Ankle (cm) 21.3 Left Calf (cm) 36.4 Left Ankle (cm) 21.7 WC - Nurse 2 - General Ulcer CM Notes Start: 04/03/25 09:24 Freq: Status: Active Protocol: Activity Type Activity Date Activity User E-sign Co-sign Detail Recorded Client Recorded Date Recorded By Document 04/03/25 09:39 [facility] [id number] 04/03/25 09:47 [facility] Document 04/12/25 10:37 JF [id number] 04/12/25 10:39 JF 04/03/25 04/12/25 09:39 10:37 Wound Center Nurse 2 #8 RT INF WATKINS -Time 09:40 -Correct Patient Yes -Correct Side, Site, Position No -Correct Procedure No -Procedure Performed No No -Post Debridement (cm) - Length 0 0 -Post Debridement (cm) - Width 0 0 -Post Debridement (cm) - Depth 0 0 -Total Square (Post) (cm) 0 0 -Area of Debridement (cm) - Length 0 0 -Area of Debridement (cm) - Width 0 0 -Total Square (Area) (cm) 0 0 -Tunneling No -Undermining/Tunneling No -Circular Undermining No -Wound/Ulcer Outcome Healed- Healed- Epithelialized Epithelialized -Bleeding Controlled with NA Pain Scale: 0-10 Numeric Is Patient Pain Free? Yes Yes - Nurse 3 - General Ulcer D/C NN Start: 04/03/25 09:24 Freq: Status: Active Protocol: Activity Type Activity Date Activity User E-sign Co-sign Detail Recorded Client Recorded Date Recorded By Document 04/03/25 09:59 ML [id number] 04/03/25 10:00 ML Document 04/12/25 10:48 KW [id number] 04/12/25 10:48 KW 04/03/25 04/12/25 09:59 10:48 Wound Care Center Nurse 3 #8 RT INF WATKINS -Primary Dressing Applied Aquacel AG 4x4, NonAdherent Contact Layer -Primary Dressing Covered/Secured with Dry Gauze & Roll Gauze, Secured with Tape -Aquacel AG 4x4 2 Pain Scale: 0-10 Numeric Is Patient Pain Free? Yes Yes WC - Visit Discharge Discharge Condition Stable Ambulatory Status Wheelchair Transportation Private Auto Medication Reconcilliation completed & No provided to patient/care provider Clinical Summary of Care Provided Yes Assessment/Plan Assessment/Plan (1) Other specified peripheral vascular diseases: CODE(S): I73.89 - Other specified peripheral vascular diseases PLAN: Patient was examined and evaluated. All findings were discussed with the patient. All questions were answered to the patient's satisfaction. After physical examination the patient has evidence of multiple dry eschars appreciated to the lesser digits and by the lower extremity. Educated the patient that this is most likely traumatic versus pressure. Educated the patient that when he donned his diabetic socks he is to make sure that they are a little loose in the toebox with shoe gear so that they are not causing too much pressure on the lesser digits. Due to the tightness of the skin he can easily break down the soft tissue due to little bit of pressure which he was understanding of. Educated the patient to check his feet twice per day as well as continue strict blood sugar control which was educated at the time of visit. No plan for debridement at this time due to decreased blood flow. All eschars were dressed with Betadine paint and Band-Aids. They will change daily. Review of the patient's vascular studies show evidence of noncompressible vessels and the patient will continue to follow-up with vascular for consultation and possible intervention at their discretion. Follow-up at the wound care center with Dr. Parr in 1 week. (2) Non-pressure chronic ulcer of other part of right foot limited to breakdown of skin: CODE(S): L97.511 - Non-pressure chronic ulcer of other part of right foot limited to breakdown of skin (3) Non-pressure chronic ulcer of other part of left foot limited to breakdown of skin: CODE(S): L97.521 - Non-pressure chronic ulcer of other part of left foot limited to breakdown of skin (4) Acute painful diabetic polyneuropathy: CODE(S): E11.42 - Type 2 diabetes mellitus with diabetic polyneuropathy
== END 2025-04-22 23:59 | disposition home or self-care (01) ==
LOC: WC 10:15
PROVIDERS: PCP Family Medicine; Referring Provider Family Medicine; Visit Provider Surgery Plastic and Reconstructive Surgery
DX: L97.511 Non-pressure chronic ulcer of other part of right foot limited to breakdown of skin (principal); L97.521 Non-pressure chronic ulcer of other part of left foot limited to breakdown of skin; J44.9 Chronic obstructive pulmonary disease, unspecified; E11.22 Type 2 diabetes mellitus with diabetic chronic kidney disease; E11.42 Type 2 diabetes mellitus with diabetic polyneuropathy; R60.0 Localized edema; N18.9 Chronic kidney disease, unspecified; I73.89 Other specified peripheral vascular diseases; Z79.01 Long term (current) use of anticoagulants
CPT/HCPCS: 99213; 99214; G0463

== ENCOUNTER → 2025-08-10 | Outpatient (CLI) | payer MEDICARE, SELFPAY ==
[2025-08-10 12:53] LABS: Creatinine, Urine (random) 98.10 mg/dL (39.00-259.00); Protein, Urine (Random) 9.8 mg/dL (0.0-12.0); Protein:Creat Ratio 100 mg/g CRE (0-200)
[2025-08-10 12:56] LABS: Anion Gap 14 (5-15); BUN 47 mg/dL (4-19); BUN/Creat Ratio 19.3 RATIO (10-20); Calcium,Total 9.4 mg/dL (7.6-11.0); Carbon Dioxide 23.8 mmol/L (21.0-32.0); Chloride 104 mmol/L (98-108); Glucose 195 mg/dL (70-99); Potassium 4.6 mmol/L (3.3-5.1)
== END | disposition home or self-care (01) ==
LOC: MTLAB 10:17
PROVIDERS: PCP Family Medicine; Referring Provider Internal Medicine Nephrology; Visit Provider Internal Medicine Nephrology
DX: N18.4 Chronic kidney disease, stage 4 (severe) (principal)
CPT/HCPCS: 36415; 80048; 82570; 84156